=== PATIENT | female | born 1960 | race Caucasian/White ===

== ENCOUNTER 2019-04-09 17:34 | Inpatient (IN) | payer SELFPAY ==
[~2019-04-09] VITALS: Ht 167.6 cm; Wt 132.0 kg
[2019-04-09 19:20] VITALS: BP 141/49
[2019-04-09] MEDS ORDERED: DEXTROSE 50% 25 GM / 50ML DISP.SYRIN. IV PRN (22:30)
[2019-04-09] MEDS ORDERED: VANCOMYCIN PER PHARMACY MC PRN (22:30)
[2019-04-09] MEDS ORDERED: IV DEXTROSE 5% 250 ML BAG. IV PRN (22:30)
[2019-04-09] MEDS ORDERED: PIP/TAZO PER PHARMACY MC PRN (22:30)
[2019-04-09 22:46] VITALS: BP 144/61
[2019-04-09] MEDS: IV NORMAL SALINE 1000ML BAG 1,000 ML IV SCH (22:46)
[2019-04-09] MEDS: HYDROcodone/APAP 5/325MG 1 TAB TABLET PO PRN (22:46)
[2019-04-09] MEDS ORDERED: INSULIN LISPRO 300 UNITS/3 ML VIAL. SQ ONE (23:00)
[2019-04-09] MEDS: INSULIN GLARGINE SYRINGE. SQ SCH (23:02)
[2019-04-09] MEDS: PIPERACILLIN/TAZOBACTAM 3.375 GM in IV NORMAL SALINE 50ML 50 ML IV SCH (23:46)
[2019-04-10] VITALS (12 sets, daily range): BP systolic 110–143; BP diastolic 52–67
[2019-04-10] MEDS: HYDROcodone/APAP 5/325MG 1 TAB TABLET PO PRN ×3 (03:18→21:38)
--- NOTE | 2019-04-10 03:41 | NUR ---
Pharmacy Vancomycin Dosing Note S:Consulted to monitor and dose vancomycin started 04/09/19. O:VANNA CARBAJAL is a 58 year old F with Cellulitis Osteomyelitis . Height: 5 feet, 6 inches Weight: 149.916269 kg [place] Body Weight: 59.30 Adjusted Body Weight: 95.18 Dosing Weight: Actual Other Antibiotics: ZOSYN 3.375 GM Q6H LABS: Last BUN: 25 Last Creatinine: 1.1 Creatinine Clearance: 80 mL/min Last WBC: 13.9 Last Procalcitonin: Tmax (past 24 hours): Microbiology: I/O: Drug Levels: Last level: on at Last dose given 04/09/19 at 1700 Vancomycin Dosing: Loading Dose: 2000 mg x1 Dosing Weight: Actual Target Trough: 15-20 A: Based on: WT AND CRCL P: 1. Begin Vancomycin 2000 mg IV q12h 2. Follow up Trough level on 04/11/19 at 0430 3. Pharmacy will continue to monitor, follow and adjust therapy as needed. ALISE ABDI RPH, 04/10/19 034 Signed: 04/10/19 at 0341 by ALISE ABDI RPH PHA
[2019-04-10] MEDS ORDERED: VANCOMYCIN 2 GM in IV NORMAL SALINE 500ML BAG 500 ML IV SCH (05:00)
[2019-04-10] MEDS: PIPERACILLIN/TAZOBACTAM 3.375 GM in IV NORMAL SALINE 50ML 50 ML IV SCH ×2 (06:07→11:34)
[2019-04-10] MEDS: INSULIN LISPRO 300 UNITS/3 ML VIAL. SQ SCH ×5 (07:30→17:39)
[2019-04-10] MEDS ORDERED: INSULIN LISPRO 300 UNITS/3 ML VIAL. SQ SCH (08:00)
[2019-04-10] MEDS ORDERED: IV DEXTROSE 5% 250 ML BAG. IV PRN (08:15)
[2019-04-10] MEDS ORDERED: DEXTROSE 50% 25 GM / 50ML DISP.SYRIN. IV PRN (08:15)
[2019-04-10] MEDS ORDERED: ONDANSETRON PF 4 MG/2 ML VIAL. IV PRN (08:15)
[2019-04-10] MEDS ORDERED: ACETAMINOPHEN 500 MG TABLET PO PRN (08:15)
[2019-04-10] MEDS: GABAPENTIN 300 MG CAPSULE. PO SCH ×2 (08:26→14:00)
[2019-04-10] MEDS ORDERED: ATENOLOL 50 MG TABLET. PO SCH (09:00)
--- NOTE | 2019-04-10 09:35 | PDOC1 ---
History and Physical Date of Admission Date of Admission DATE: 04/10/19 TIME: 09:27 Identification/Chief Complaint Chief Complaint gangrenous toe, left leg, hx osteo, bad DM Source Source: Caregiver, Chart review, Patient History of Present Illness History of Present Illness 58 white female, bad DM, hgba1c 8, hx osteo , past hx picc, IV abx prolonged time, comes in bec of non healing wound RT heel and rt 3rd or 4th RT toe, BUT A GANGRENOUS AND FOUL SMELLING, ESSENTIALLY 3rd left toe, BS < 200s at home she claims, she has been NPO with consult to ortho, i added ID consult for obvious reasons She knows she will need amputation of that gangrenous toe, WOund care will also consult, she has a heel wound, maybe 0.5 to 1 cm deep on that RT plantar surface SHe has hx of partial amputation if great big toe She has obviouslt bad neuropathy on gabapentin Past Medical History Cardiovascular: HTN, Hyperlipidemia Infectious disease: Other (osteomyelitis) Endocrine: Diabetes Past Surgical History Past Surgical History: Other (partial amputtaion great big toe) Family History Family History: Diabetes, High Cholestrol, Hypertension Social History Smoke: No ALCOHOL: none Drugs: None Current Medications Current Medications Current Medications Vancomycin HCl (Vanco Per Pharmacy) 1 each PRN DAILY PRN MC SEE COMMENTS Last administered on 04/10/19at 03:41; Start 04/09/19 at 22:30 Piperacillin Sod/ Tazobactam Sod (Zosyn Per Pharmacy) 1 each PRN DAILY PRN MC SEE COMMENTS; Start 04/09/19 at 22:30 Sodium Chloride 1,000 ml @ 75 mls/hr [id number] IV Last administered on 04/09/19at 22:46; Start 04/09/19 at 23:00 Acetaminophen/ Hydrocodone Bitart (Lortab 5/325) 1 tab PRN Q4HRS PRN PO MODERATE PAIN 4-6; Start 04/09/19 at 22:30 Acetaminophen/ Hydrocodone Bitart (Lortab 5/325) 2 tab PRN Q4HRS PRN PO SEVERE PAIN 7-10 Last administered on 04/10/19at 08:28; Start 04/09/19 at 22:30 Insulin Glargine (Lantus Syringe) 70 unit QHS SQ Last administered on 04/09/19at 23:02; Start 04/09/19 at 23:00 Insulin Human Lispro (HumaLOG) 20 units 1X ONCE SQ Last administered on 04/09/19at 23:02; Start 04/09/19 at 23:00; Stop 04/09/19 at 23:01; Status DC Insulin Human Lispro (HumaLOG) 0-7 UNITS TIDWMEALS SQ ; Start 04/10/19 at 08:00; Stop 04/10/19 at 08:08; Status DC Dextrose (Dextrose 50%-Water Syringe) 12.5 gm PRN Q15MIN PRN IV SEE COMMENTS; Start 04/09/19 at 22:30; Status Cancel Dextrose 250 ml PRN Q15MIN PRN IV SEE COMMENTS; Start 04/09/19 at 22:30; Status Cancel Insulin Human Lispro (HumaLOG) 26 units TIDAC SQ ; Start 04/10/19 at 07:30 Piperacillin Sod/ Tazobactam Sod 3.375 gm/Sodium Chloride 50 ml @ 100 mls/hr Q6HRS IV Last administered on 04/10/19at 06:07; Start 04/10/19 at 00:00 Gabapentin (Neurontin) 900 mg [id number] PO Last administered on 04/10/19at 08:28; Start 04/10/19 at 09:00 Gabapentin (Neurontin) 1,200 mg HS PO ; Start 04/10/19 at 21:00 Atenolol (Tenormin) 40 mg DAILY PO ; Start 04/10/19 at 09:00; Status UNV Vancomycin HCl 2 gm/Sodium Chloride 500 ml @ 250 mls/hr Q12H IV Last administered on 04/10/19at 05:20; Start 04/10/19 at 05:00 Vancomycin HCl (Vancomycin Trough Level) 1 each 1X ONCE MC ; Start 04/11/19 at 04:30; Stop 04/11/19 at 04:31 Insulin Human Lispro (HumaLOG) 0-9 UNITS TIDWMEALS SQ ; Start 04/10/19 at 12:00 Dextrose (Dextrose 50%-Water Syringe) 12.5 gm PRN Q15MIN PRN IV SEE COMMENTS; Start 04/10/19 at 08:15 Dextrose 250 ml PRN Q15MIN PRN IV SEE COMMENTS; Start 04/10/19 at 08:15 Acetaminophen (Tylenol) 500 mg PRN Q6HRS PRN PO MILD PAIN / TEMP; Start 04/10/19 at 08:15 Ondansetron HCl (Zofran) 4 mg PRN Q6HRS PRN IV NAUSEA/VOMITING; Start 04/10/19 at 08:15 Fentanyl Citrate (Fentanyl 2ml Vial) 50 mcg PRN Q2HR PRN IV PAIN; Start 04/10/19 at 08:15 Allergies Allergies: Coded Allergies: cephalexin (Verified Allergy, Severe, Anaphylaxis, 04/09/19) tongue swells and throat closes, per patient iodine (Verified Allergy, Severe, 04/09/19) ROS Review of System neuropathic pain on both legs, no fevers, no abd pain, n,v,d, emesis, rest 14 pt neg Physical Exam General: Alert, Oriented X3, Cooperative, No acute distress HEENT: Atraumatic, PERRLA, EOMI Lungs: Clear to auscultation, Normal air movement Heart: S1S2, RRR, no thrills, no rubs, no gallops Cardiovascular: S1 Breasts: Normal, Rt breast nml w/o mass, Lt breast nml w/o mass, Nipples normal Abdomen: Normal bowel sounds, Soft, No tenderness, No hepatosplenomegaly, No masses Rectal Exam: not examined PELVIC: Nml ext genitalia Extremities: Other (left thrid toe is GANGRENOUS, foul smelling, . RT heel ulcer, 0.5-1 cm deep, RT 3rd or 4th digit infection/cellulitis) Neuro: Normal gait, Normal speech, Strength at 5/5 X4 ext, Normal tone, Sensation intact, Cranial nerves 3-12 NL, Reflexes 2+ Psych/Mental Status: Mental status NL, Mood NL Vitals Vitals Vital Signs Date Time Temp Pulse Resp B/P (MAP) Pulse Ox O2 Delivery O2 Flow Rate FiO2 04/10/19 08:28 Room Air 04/10/19 07:15 98.1 80 20 135/52 (79) 96 98.1 Labs Labs Laboratory Tests Test 04/09/19 20:49 04/10/19 07:12 Glucose (Fingerstick) 392 mg/dL (70-99) 165 mg/dL (70-99) Laboratory Tests Test 04/09/19 20:49 04/10/19 07:12 Glucose (Fingerstick) 392 mg/dL (70-99) 165 mg/dL (70-99) VTE Prophylaxis Ordered VTE Prophylaxis Devices: Yes VTE Pharmacological Prophylaxi: Yes Assessment/Plan Assessment/Plan 1. LEft THIRD TOE Gangrene - NEEDS amputation and she is agreeable 2. RT heel ulcer - wound care 3. OSteomyelitis - as per [place] xray - needs ortho and iD - s.p 1 dose abx 4. DM with hgba1c 8 and neuropathy and traget organ damage - hx osteo, partial amputation big toe 5. Obesity 6. HTN - controlled pLAN: med surg floor 2 MN has been npo, add iD consult SSI HOme meds, linda insulin regimen FULL CODE Ortho will need amputation PT.OT tmr maybe Dw her IVF while NPO TAYLOR CORDOVA MD Apr 10, 2019 09:35
[2019-04-10 09:46] LABS: BASO # 0.1 x10^3/uL (0.0-0.2); BASO % 1 % (0-3); EOS # 0.4 x10^3/uL (0.0-0.7); EOS % 4 % (0-3); HEMATOCRIT 37.5 % (36.0-47.0); HEMOGLOBIN 12.2 g/dL (12.0-15.5); LYMPH # 0.7 x10^3/uL (1.0-4.8); LYMPH % 6 % (24-48); MEAN CORPUSCULAR HEMOGLOBIN 29 pg (25-35); MEAN CORPUSCULAR HGB CONC 33 g/dL (31-37); MEAN CORPUSCULAR VOLUME 88 fL (79-100); MONO # 0.8 x10^3/uL (0.0-1.1); MONO % 7 % (0-9); NEUT # 9.5 x10^3/uL (1.8-7.7); NEUT % 83 % (31-73); PLATELET COUNT 271 x10^3/uL (140-400); RED BLOOD COUNT 4.25 x10^6/uL (3.50-5.40); RED CELL DISTRIBUTION WIDTH 17.2 % (11.5-14.5); WHITE BLOOD COUNT 11.4 x10^3/uL (4.0-11.0)
[2019-04-10 10:06] LABS: ALBUMIN 2.2 g/dL (3.4-5.0); ALBUMIN/GLOBULIN RATIO 0.5 (1.0-1.7); CALCIUM 8.8 mg/dL (8.5-10.1); CREATININE 0.9 mg/dL (0.6-1.0); GFR 64.3; POTASSIUM 4.2 mmol/L (3.5-5.1); TOTAL BILIRUBIN 0.5 mg/dL (0.2-1.0); TOTAL PROTEIN 6.9 g/dL (6.4-8.2)
[2019-04-10] MEDS ORDERED: SODIUM CHL/ALOE VERA NASAL GEL 14.1GM TUBE. NS PRN (11:45)
--- NOTE | 2019-04-10 12:32 | PDOC2 ---
CONSULT Date of Consult Date of Consult DATE: 04/10/19 TIME: 12:31 Reason for Consult Reason for Consult: Left third toe osteomyelitis Source Source: Chart review, Patient History of Present Illness Reason for Visit: 58 white female, bad DM, hgba1c 8, hx osteo , past hx picc, IV abx prolonged time, comes in because of non healing wound RT heel and rt 3rd or 4th RT toe, BUT A GANGRENOUS AND FOUL SMELLING, ESSENTIALLY 3rd left toe, BS < 200s at home she claims, she has been NPO with consult to Ortho, and ID consult for obvious reasons She knows she will need amputation of that gangrenous toe, Wound care will also consult, she has a heel wound, maybe 0.5 to 1 cm deep on that RT plantar surface She has hx of partial amputation if great big toe She has obviously bad neuropathy on gabapentin I interviewed the patient at the bedside, and spoke to Dr. Diaz personally about her. Past Medical History Cardiovascular: HTN, Hyperlipidemia Infectious disease: Other (osteomyelitis) Endocrine: Diabetes Past Surgical History Past Surgical History: Other (partial amputtaion great big toe) Family History Family History: Diabetes, High Cholestrol, Hypertension Social History No ALCOHOL: none Drugs: None Current Medications Current Medications Current Medications Vancomycin HCl (Vanco Per Pharmacy) 1 each PRN DAILY PRN MC SEE COMMENTS Last administered on 04/10/19at 03:41; Start 04/09/19 at 22:30 Piperacillin Sod/ Tazobactam Sod (Zosyn Per Pharmacy) 1 each PRN DAILY PRN MC SEE COMMENTS; Start 04/09/19 at 22:30 Sodium Chloride 1,000 ml @ 75 mls/hr [id number] IV Last administered on 04/09/19at 22:46; Start 04/09/19 at 23:00 Acetaminophen/ Hydrocodone Bitart (Lortab 5/325) 1 tab PRN Q4HRS PRN PO MODERATE PAIN 4-6; Start 04/09/19 at 22:30 Acetaminophen/ Hydrocodone Bitart (Lortab 5/325) 2 tab PRN Q4HRS PRN PO SEVERE PAIN 7-10 Last administered on 04/10/19at 08:28; Start 04/09/19 at 22:30 Insulin Glargine (Lantus Syringe) 70 unit QHS SQ Last administered on 04/09/19at 23:02; Start 04/09/19 at 23:00 Insulin Human Lispro (HumaLOG) 20 units 1X ONCE SQ Last administered on 04/09/19at 23:02; Start 04/09/19 at 23:00; Stop 04/09/19 at 23:01; Status DC Insulin Human Lispro (HumaLOG) 0-7 UNITS TIDWMEALS SQ ; Start 04/10/19 at 08:00; Stop 04/10/19 at 08:08; Status DC Dextrose (Dextrose 50%-Water Syringe) 12.5 gm PRN Q15MIN PRN IV SEE COMMENTS; Start 04/09/19 at 22:30; Status Cancel Dextrose 250 ml PRN Q15MIN PRN IV SEE COMMENTS; Start 04/09/19 at 22:30; Status Cancel Insulin Human Lispro (HumaLOG) 26 units TIDAC SQ ; Start 04/10/19 at 07:30 Piperacillin Sod/ Tazobactam Sod 3.375 gm/Sodium Chloride 50 ml @ 100 mls/hr Q6HRS IV Last administered on 04/10/19at 11:35; Start 04/10/19 at 00:00 Gabapentin (Neurontin) 900 mg BID92 PO Last administered on 04/10/19at 08:28; Start 04/10/19 at 09:00 Gabapentin (Neurontin) 1,200 mg HS PO ; Start 04/10/19 at 21:00 Atenolol (Tenormin) 40 mg DAILY PO ; Start 04/10/19 at 09:00; Status UNV Vancomycin HCl 2 gm/Sodium Chloride 500 ml @ 250 mls/hr Q12H IV Last administered on 04/10/19at 05:20; Start 04/10/19 at 05:00 Vancomycin HCl (Vancomycin Trough Level) 1 each 1X ONCE MC ; Start 04/11/19 at 04:30; Stop 04/11/19 at 04:31 Insulin Human Lispro (HumaLOG) 0-9 UNITS TIDWMEALS SQ ; Start 04/10/19 at 12:00 Dextrose (Dextrose 50%-Water Syringe) 12.5 gm PRN Q15MIN PRN IV SEE COMMENTS; Start 04/10/19 at 08:15 Dextrose 250 ml PRN Q15MIN PRN IV SEE COMMENTS; Start 04/10/19 at 08:15 Acetaminophen (Tylenol) 500 mg PRN Q6HRS PRN PO MILD PAIN / TEMP; Start 04/10/19 at 08:15 Ondansetron HCl (Zofran) 4 mg PRN Q6HRS PRN IV NAUSEA/VOMITING; Start 04/10/19 at 08:15 Fentanyl Citrate (Fentanyl 2ml Vial) 50 mcg PRN Q2HR PRN IV PAIN; Start 04/10/19 at 08:15 Sodium Chloride ([place] Saline Nasal) 1 nadeem PRN Q2HRS PRN NS NASAL CONGESTION; Start 04/10/19 at 11:45 Allergies Allergies: Coded Allergies: cephalexin (Verified Allergy, Severe, Anaphylaxis, 04/09/19) tongue swells and throat closes, per patient iodine (Verified Allergy, Severe, 04/09/19) Physical Exam General: Alert, Cooperative HEENT: Atraumatic Lungs: Normal air movement Heart: Regular rate Abdomen: Soft Extremities: Other (the right third toe is black, and there is wet and dry gangrene with foul odor and purulent drainage. The great toe has been partially amputated previously. There is intense swelling of the distal forefoot, and the third toe gangrene likely has extension at least to the third metatarsal, but there could be involvement of the entire forefoot.) Skin: Other (gangrene right third toe) Neuro: Other (decreased sensation consistent with peripheral neuropathy. Also difficult to assess because of foot swelling. ) Vitals VITALS Vital Signs Date Time Temp Pulse Resp B/P (MAP) Pulse Ox O2 Delivery O2 Flow Rate FiO2 04/10/19 11:15 98.3 81 18 143/60 (87) 97 Room Air 98.3 Labs Labs Laboratory Tests Test 04/09/19 20:49 04/10/19 07:12 04/10/19 09:30 04/10/19 11:31 Glucose (Fingerstick) 392 mg/dL (70-99) 165 mg/dL (70-99) 215 mg/dL (70-99) White Blood Count 11.4 x10^3/uL (4.0-11.0) Red Blood Count 4.25 x10^6/uL (3.50-5.40) Hemoglobin 12.2 g/dL (12.0-15.5) Hematocrit 37.5 % (36.0-47.0) Mean Corpuscular Volume 88 fL (79-100) Mean Corpuscular Hemoglobin 29 pg (25-35) Mean Corpuscular Hemoglobin Concent 33 g/dL (31-37) Red Cell Distribution Width 17.2 % (11.5-14.5) Platelet Count 271 x10^3/uL (140-400) Neutrophils (%) (Auto) 83 % (31-73) Lymphocytes (%) (Auto) 6 % (24-48) Monocytes (%) (Auto) 7 % (0-9) Eosinophils (%) (Auto) 4 % (0-3) Basophils (%) (Auto) 1 % (0-3) Neutrophils # (Auto) 9.5 x10^3/uL (1.8-7.7) Lymphocytes # (Auto) 0.7 x10^3/uL (1.0-4.8) Monocytes # (Auto) 0.8 x10^3/uL (0.0-1.1) Eosinophils # (Auto) 0.4 x10^3/uL (0.0-0.7) Basophils # (Auto) 0.1 x10^3/uL (0.0-0.2) Sodium Level 143 mmol/L (136-145) Potassium Level 4.2 mmol/L (3.5-5.1) Chloride Level 104 mmol/L (98-107) Carbon Dioxide Level 33 mmol/L (21-32) Anion Gap 6 (6-14) Blood Urea Nitrogen 19 mg/dL (7-20) Creatinine 0.9 mg/dL (0.6-1.0) Estimated GFR (Cockcroft-Gault) 64.3 BUN/Creatinine Ratio 21 (6-20) Glucose Level 211 mg/dL (70-99) Calcium Level 8.8 mg/dL (8.5-10.1) Total Bilirubin 0.5 mg/dL (0.2-1.0) Aspartate Amino Transf (AST/SGOT) 12 U/L (15-37) Alanine Aminotransferase (ALT/SGPT) 26 U/L (14-59) Alkaline Phosphatase 151 U/L (46-116) Total Protein 6.9 g/dL (6.4-8.2) Albumin 2.2 g/dL (3.4-5.0) Albumin/Globulin Ratio 0.5 (1.0-1.7) Laboratory Tests Test 04/09/19 20:49 04/10/19 07:12 04/10/19 09:30 04/10/19 11:31 Glucose (Fingerstick) 392 mg/dL (70-99) 165 mg/dL (70-99) 215 mg/dL (70-99) White Blood Count 11.4 x10^3/uL (4.0-11.0) Red Blood Count 4.25 x10^6/uL (3.50-5.40) Hemoglobin 12.2 g/dL (12.0-15.5) Hematocrit 37.5 % (36.0-47.0) Mean Corpuscular Volume 88 fL (79-100) Mean Corpuscular Hemoglobin 29 pg (25-35) Mean Corpuscular Hemoglobin Concent 33 g/dL (31-37) Red Cell Distribution Width 17.2 % (11.5-14.5) Platelet Count 271 x10^3/uL (140-400) Neutrophils (%) (Auto) 83 % (31-73) Lymphocytes (%) (Auto) 6 % (24-48) Monocytes (%) (Auto) 7 % (0-9) Eosinophils (%) (Auto) 4 % (0-3) Basophils (%) (Auto) 1 % (0-3) Neutrophils # (Auto) 9.5 x10^3/uL (1.8-7.7) Lymphocytes # (Auto) 0.7 x10^3/uL (1.0-4.8) Monocytes # (Auto) 0.8 x10^3/uL (0.0-1.1) Eosinophils # (Auto) 0.4 x10^3/uL (0.0-0.7) Basophils # (Auto) 0.1 x10^3/uL (0.0-0.2) Sodium Level 143 mmol/L (136-145) Potassium Level 4.2 mmol/L (3.5-5.1) Chloride Level 104 mmol/L (98-107) Carbon Dioxide Level 33 mmol/L (21-32) Anion Gap 6 (6-14) Blood Urea Nitrogen 19 mg/dL (7-20) Creatinine 0.9 mg/dL (0.6-1.0) Estimated GFR (Cockcroft-Gault) 64.3 BUN/Creatinine Ratio 21 (6-20) Glucose Level 211 mg/dL (70-99) Calcium Level 8.8 mg/dL (8.5-10.1) Total Bilirubin 0.5 mg/dL (0.2-1.0) Aspartate Amino Transf (AST/SGOT) 12 U/L (15-37) Alanine Aminotransferase (ALT/SGPT) 26 U/L (14-59) Alkaline Phosphatase 151 U/L (46-116) Total Protein 6.9 g/dL (6.4-8.2) Albumin 2.2 g/dL (3.4-5.0) Albumin/Globulin Ratio 0.5 (1.0-1.7) Images Images Left foot x-ray report reviewed, images independently reviewed. [address] [id number] IMAGING REPORT Signed PATIENT: VANNA CARBAJAL ACCOUNT: [id number] : 1960 LOCATION: ER AGE: 58 SEX: F EXAM STATUS: REG ER ORD. PHYSICIAN: JOSELIN PLASCENCIA DO REASON: ULCER, CELLULITIS 3RD TOE. PT UNABLE TO MOVE TOES PROCEDURE: TOES LEFT EXAM: AP, oblique and lateral views of the left toes DATE: 04/09/2019 3:27 PM INDICATION: Ulceration, cellulitis third toe COMPARISON: No Prior FINDINGS: Diffuse soft tissue swelling seen about the left third toe with associated foci of subcutaneous gas. Prominent soft tissue ulceration is seen about the tuft with associated erosive/destructive change of the tuft of the distal phalanx third toe. Moderate soft tissue swelling seen about the second and fourth toes. Post amputation changes of the distal phalanx left great toe. IMPRESSION: 1. Soft tissue swelling with foci of gas most prominent about the third toe with erosive/destructive change of the tuft of distal phalanx consistent with acute osteomyelitis distal phalanx third toe with associated soft tissue swelling from likely from cellulitis. Electronically signed by: Julián Linton MD (04/09/2019 4:07 PM) [facility] DICTATED AND SIGNED BY: JULIÁN LINTON MD DATE: 04/09/19 4210 CC: JOSELIN PLASCENCIA DO; PCP,NO Assessment/Plan Assessment/Plan Left foot gangrenous () third toe with wet and dry gangrene, severe infection, osteomyelitis, possible abscess in the forefoot. (Type 2 diabetes with diabetic peripheral angiopathy with gangrene E11.52) I recommended urgent trip to the operating room for amputation of the third toe of the left foot, along with likely part of the metatarsal and drainage of any forefoot abscess. (CPT 42285 amputation metatarsal, with toe, single.) I spoke to Dr. Diaz and he and I both feel this should the left open due to the nicki rity of the infection. She might require a transmetatarsal amputation in the future but I will not do that today and I will attempt preservation of the remainder of the forefoot with debridement, delayed closure at a later date, antibiotics and wound care. She stated understanding and agrees with the plan. SUSANA AGUAYO MD Apr 10, 2019 12:32
--- NOTE | 2019-04-10 12:43 | PDOC ---
Infectious Disease Note Vital Sign Vital Signs Vital Signs Date Time Temp Pulse Resp B/P (MAP) Pulse Ox O2 Delivery O2 Flow Rate FiO2 04/10/19 11:15 98.3 81 18 143/60 (87) 97 Room Air 98.3 Labs Lab Laboratory Tests Test 04/09/19 20:49 04/10/19 07:12 04/10/19 09:30 04/10/19 11:31 Glucose (Fingerstick) 392 mg/dL (70-99) 165 mg/dL (70-99) 215 mg/dL (70-99) White Blood Count 11.4 x10^3/uL (4.0-11.0) Red Blood Count 4.25 x10^6/uL (3.50-5.40) Hemoglobin 12.2 g/dL (12.0-15.5) Hematocrit 37.5 % (36.0-47.0) Mean Corpuscular Volume 88 fL (79-100) Mean Corpuscular Hemoglobin 29 pg (25-35) Mean Corpuscular Hemoglobin Concent 33 g/dL (31-37) Red Cell Distribution Width 17.2 % (11.5-14.5) Platelet Count 271 x10^3/uL (140-400) Neutrophils (%) (Auto) 83 % (31-73) Lymphocytes (%) (Auto) 6 % (24-48) Monocytes (%) (Auto) 7 % (0-9) Eosinophils (%) (Auto) 4 % (0-3) Basophils (%) (Auto) 1 % (0-3) Neutrophils # (Auto) 9.5 x10^3/uL (1.8-7.7) Lymphocytes # (Auto) 0.7 x10^3/uL (1.0-4.8) Monocytes # (Auto) 0.8 x10^3/uL (0.0-1.1) Eosinophils # (Auto) 0.4 x10^3/uL (0.0-0.7) Basophils # (Auto) 0.1 x10^3/uL (0.0-0.2) Sodium Level 143 mmol/L (136-145) Potassium Level 4.2 mmol/L (3.5-5.1) Chloride Level 104 mmol/L (98-107) Carbon Dioxide Level 33 mmol/L (21-32) Anion Gap 6 (6-14) Blood Urea Nitrogen 19 mg/dL (7-20) Creatinine 0.9 mg/dL (0.6-1.0) Estimated GFR (Cockcroft-Gault) 64.3 BUN/Creatinine Ratio 21 (6-20) Glucose Level 211 mg/dL (70-99) Calcium Level 8.8 mg/dL (8.5-10.1) Total Bilirubin 0.5 mg/dL (0.2-1.0) Aspartate Amino Transf (AST/SGOT) 12 U/L (15-37) Alanine Aminotransferase (ALT/SGPT) 26 U/L (14-59) Alkaline Phosphatase 151 U/L (46-116) Total Protein 6.9 g/dL (6.4-8.2) Albumin 2.2 g/dL (3.4-5.0) Albumin/Globulin Ratio 0.5 (1.0-1.7) Objective Assessment L 3 rd toe osteomyelitis - infection - despite amoxicillin/Clinda Cephalexin allegy -swelling and throat closing leukocytosis Yeast skin Dm Plan Plan of Care Add fluconazole Given amox use will change to Meropenem Given high dose Vanc and previous exposure will change to Dapto avoid potential ALISIA F/u labs and cults Add Sed rate Await surgery D/w nursing Thank you # [id number] MEG BURNS MD Apr 10, 2019 12:43
[2019-04-10] MEDS: DAPTOMYCIN IV SCH (13:00)
[2019-04-10] MEDS: FLUCONAZOLE 200MG/100ML PREMIX 100 ML IV SCH (13:00)
[2019-04-10] MEDS: NORMAL SALINE IV SCH (13:00)
[2019-04-10] MEDS ORDERED: IV RINGERS,LACTATED 1000ML 1,000 ML IV SCH (13:14)
[2019-04-10] MEDS ORDERED: HYDROmorphone 2 MG/ML VIAL IV PRN (13:15)
[2019-04-10] MEDS ORDERED: fentaNYL PF VIAL 100 MCG/2 ML VIAL IV PRN ×2 (13:15)
[2019-04-10] MEDS ORDERED: PROCHLORPERAZINE 10 MG/2 ML VIAL. IV PRN (13:15)
[2019-04-10] MEDS ORDERED: MORPHINE SULFATE 2 MG/ML VIAL. IV PRN (13:15)
[2019-04-10] MEDS ORDERED: PROPOFOL 20 ML IV ONE (13:20)
[2019-04-10] MEDS ORDERED: fentaNYL PF VIAL 100 MCG/2 ML VIAL ONE (13:20)
[2019-04-10] MEDS ORDERED: SEVOFLURANE 31 TO 60 MINUTES. IH ONE (13:20)
[2019-04-10] MEDS ORDERED: DEXAMETHASONE SOD PHOS 4 MG/ML VIAL ONE (13:21)
[2019-04-10] MEDS ORDERED: LIDOCAINE 2% PF 5 ML VIAL. ONE (13:21)
[2019-04-10] MEDS ORDERED: ONDANSETRON PF 4 MG/2 ML VIAL. ONE (13:21)
--- NOTE | 2019-04-10 13:31 | NUR ---
SS following for discharge planning. SS reviewed pt chart. Pt is self pay pt. HCFS following for self pay status. Pt is from home and is currently on room air. No discharge needs noted at this time. SS will continue to follow for discharge planning.
--- NOTE | 2019-04-10 13:52 | NUR ---
Wound care: Attempted to see patient regarding wound care. Patient in surgery at this time. Wound care will see patient tomorrow 04/11/19. Spoke with RN regarding POC.
--- NOTE | 2019-04-10 13:59 | EKG ---
[facility] [address] [place] [address] Test Date: 2019-04-10 Test Time: 13:52:46 Pat Name: VANNA CARBAJAL Department: Room: [facility] Gender: F Forestry Conservation Worker: BURKE : 1960 Requested By: TEREZA LUI Order Number: [id number] Reading MD: Montez Hu MD Measurements Intervals [place] Rate: 83 P: 64 ND: 134 QRS: 86 QRSD: 100 T: 18 QT: 372 QTc: 438 Interpretive Statements SINUS RHYTHM RBBB Electronically Signed On 04-22-2019 22:03:51 CDT by Montez Hu MD
[2019-04-10] MEDS: MEROPENEM 1 GM in IV NORMAL SALINE 100ML 100 ML IV SCH ×2 (14:00→21:29)
[2019-04-10] MEDS ORDERED: PHENYLEPHRINE in 0.9% NACL PF 1 MG/10 ML SYRINGE. IV ONE (14:27)
--- NOTE | 2019-04-10 15:10 | PDOC4 ---
Operative Note Operative Note Date of Procedure: April 10, 2019 Pre-Op Diagnosis: Type 2 diabetes mellitus with diabetic peripheral angiopathy with gangrene E11.52 Post-Op Diagnosis: same Procedure: Left third toe amputation metatarsal, with toe, single CPT 59252 Surgeon: Susana Sandoval MD Router Machine Operator: OSCAR Spence Anesthesia: General EBL: 10 mL Specimens Obtained: left third toe with metatarsal Complications: none Drains: none Findings: Severe gangrene and abscess, with some extension into the soft tissues around the second and fourth metatarsal head regions Indications for Procedure: This patient has a gangrenous third toe, as a complication of diabetes. She has wet and dry gangrene and urgent need for surgery. I recommend third toe with the corresponding metatarsal amputation, and leaving the wound open for now, with further procedures planned. The patient and I discussed the risks, benefits and alternatives of surgery. We discussed the potential risks of wound dehiscence, ongoing infection, need for further surgery, or other potential surgical or anesthetic complications. All of her questions about surgery were answered and she desires to proceed. Procedure in Detail: The patient was identified in the preoperative holding area. The correct left third toe was noted by me and is black, necrotic and foul smelling. The patient was taken to the operating room where general anesthesia was used. The patient was positioned supine on the operating table. She remains on multiple scheduled antibiotics. A timeout procedure was performed. The skin was prepared in sterile fashion using Betadine. Sterile drapes were applied. The limb was elevated to exsanguinate it and an Esmarch was used at the midfoot as a tourniquet. An elliptical incision was made with the tips of the ellipse at the dorsal and plantar aspects of the metatarsophalangeal joint. An incision was made with a 10 blade scalpel. Purulent drainage was noted. The third metatarsal was exposed, and transected with a bone cutter. The toe with its associated metatarsal was now excised using a scalpel. Foul-smelling purulent gangrenous tissue was still noted, extending towards the head of the fourth metatarsal and the head of the second metatarsal. I did excisional debridement with a rongeurs of the remaining foul-smelling or otherwise nonviable tissue around the 2nd and 4th metatarsals, but was able to leave the second and fourth metatarsal heads and metatarsal shaft bone and the 2nd and 4th toes. The friable skin on the plantar foot associated with the gangrenous toe was excised with rongeurs. Copious saline irrigation was used. The Esmarch tourniquet was released from the midfoot. There is only slight bleeding and there were no pulsatile bleeders nor need for electrocautery. The wound was packed open with Kerlix, and further dressed in sterile fashion using an ABD and additional Kerlix. Needle and sponge counts were correct. There were no apparent complications. The patient will require further surgery. SUSANA SANDOVAL MD Apr 10, 2019 15:10
[2019-04-10] MEDS ORDERED: oxyCODONE/APAP 5/325 1 TAB TABLET PO PRN (15:15)
[2019-04-10] MEDS: oxyCODONE/APAP 5/325 1 TAB TABLET PO PRN (15:54)
[2019-04-10] MEDS: IV NORMAL SALINE 1000ML BAG 1,000 ML IV SCH (15:54)
[2019-04-10] MEDS: ASPIRIN ENTERIC COATED 325 MG TABLET.DR. PO SCH (21:00)
[2019-04-10] MEDS: INSULIN GLARGINE SYRINGE. SQ SCH (21:35)
[2019-04-10] MEDS: GABAPENTIN 400 MG CAPSULE. PO SCH (21:37)
--- NOTE | 2019-04-10 23:00 | CONS ---
DATE OF CONSULTATION: 04/10/2019 LOCATION: The patient's room 416. REQUESTING PHYSICIAN: Dr. Kunz. REASON FOR CONSULTATION: Left third toe infection. HISTORY OF PRESENT ILLNESS: The patient is a 58-year-old female with history of diabetes and history of previous toe infections. She has recently moved from just outside [place], [place] to [place]. She states she has been on amoxicillin and clindamycin for approximately 4 months despite this, her left third toe had become worsened. It darkened in color and developed a strong odor. She has some subjective chills, some fevers, had some nausea. Denies any cramps, diarrhea, dysuria or frequency. No trauma. PAST MEDICAL HISTORY: Positive for previous osteomyelitis of the toe. States she has had multiple PICC lines. She cannot say for sure if she had any specific bacteria, but she has been treated with vancomycin in the past amongst other things. She has hyperlipidemia, hypertension, morbid obesity and diabetes. PAST SURGICAL HISTORY: Positive for partial left great toe amputation. REVIEW OF SYSTEMS: Otherwise negative except for mentioned above. ALLERGIES: LISTED CEPHALEXIN, SHE STATES CAUSES SWELLING, ANAPHYLACTIC TYPE REACTION, BUT SHE TOLERATED AMOXICILLIN. SOCIAL HISTORY: No tobacco or alcohol. FAMILY HISTORY: Positive for diabetes, hypercholesterol and hypertension. CURRENT MEDICATIONS: Include vancomycin as well as Zosyn. She is on Neurontin, hydrocodone and insulin. Other meds are available and reviewed in the chart. PHYSICAL EXAMINATION: VITAL SIGNS: She has been afebrile. Temperature 98.3, pulse 81, respirations 18, satting 97% on room air and blood pressure 143/60. CONSTITUTIONAL: She is sitting up on the side of bed. She is morbidly obese. She is cooperative. She looks a little tired. She is in no acute distress. HEENT: Pupils are equal and reactive. She has normal conjunctivae. Oral cavity, pharynx is clear. NECK: Supple, no JVD. LUNGS: Clear to auscultation bilaterally. HEART: S1, S2. ABDOMEN: Morbidly obese, soft, nontender, no guarding or rebound. EXTREMITIES: Without clubbing, cyanosis. Left third toe has gangrenous, has a foul odor to it, is dark, and has some purulent material coming from it. She has a mild right heel ulcer as well. Skin is warm to touch without signs of rash. She does have some generalized rash. She has some yeast in her folds, also some yeast on her lower extremities. NEUROLOGIC: She is nonfocal, moves all extremities, answers questions. PSYCHIATRIC: Affect is appropriate. LABORATORY VALUES: White count was 11.4, hemoglobin 12.2, and platelets of 271. Glucose 211. AST 12 and ALT 26. Creatinine of 0.9. There are no radiological studies. IMPRESSION: 1. Left third toe osteomyelitis infection despite amoxicillin and clindamycin. SHE HAD BEEN ON RECENTLY CEPHALEXIN ALLERGY, CAUSES SWELLING AND THROAT CLOSING. 2. Leukocytosis. 3. Yeast. 4. Diabetes. RECOMMENDATIONS: Given her yeast, we will add fluconazole. Given her recent amoxicillin use, we will change to meropenem as she is at risk for resistance and given her prior use of vancomycin and also given high dose that she is being given as she is at risk for acute kidney injury. Therefore, we will discontinue vancomycin and begin daptomycin. We will add a sedimentation rate. We will follow up labs and cultures. We will await Surgery to happen later this afternoon in discussion with nursing. Thank you for allowing me to participate in the patient's care. If you have any questions, please do not hesitate to contact me. MEG BURNS MD DR: LEÓN/joe JOB#: [id number] / [id number]
[2019-04-11 01:12] LABS: HEMOGLOBIN A1C 9.7 % (4.8-5.6)
[2019-04-11 02:37] VITALS: BP 134/58
[2019-04-11] MEDS: HYDROcodone/APAP 5/325MG 1 TAB TABLET PO PRN ×3 (03:54→21:01)
[2019-04-11] MEDS: IV NORMAL SALINE 1000ML BAG 1,000 ML IV SCH (05:00)
[2019-04-11] MEDS: MEROPENEM 1 GM in IV NORMAL SALINE 100ML 100 ML IV SCH ×3 (05:58→21:04)
[2019-04-11 06:58] LABS: BASO % 0 % (0-3); EOS # 0.1 x10^3/uL (0.0-0.7); EOS % 1 % (0-3); HEMATOCRIT 37.9 % (36.0-47.0); HEMOGLOBIN 12.2 g/dL (12.0-15.5); LYMPH # 0.8 x10^3/uL (1.0-4.8); LYMPH % 6 % (24-48); MEAN CORPUSCULAR HEMOGLOBIN 29 pg (25-35); MEAN CORPUSCULAR HGB CONC 32 g/dL (31-37); MEAN CORPUSCULAR VOLUME 90 fL (79-100); MONO # 0.7 x10^3/uL (0.0-1.1); MONO % 5 % (0-9); NEUT # 11.2 x10^3/uL (1.8-7.7); NEUT % 88 % (31-73); PLATELET COUNT 317 x10^3/uL (140-400); RED BLOOD COUNT 4.22 x10^6/uL (3.50-5.40); RED CELL DISTRIBUTION WIDTH 17.5 % (11.5-14.5); WHITE BLOOD COUNT 12.7 x10^3/uL (4.0-11.0)
[2019-04-11 07:00] VITALS: BP 119/61
[2019-04-11 07:29] LABS: CALCIUM 8.1 mg/dL (8.5-10.1); CREATININE 1.3 mg/dL (0.6-1.0); GFR 42.1; POTASSIUM 5.8 mmol/L (3.5-5.1)
[2019-04-11] MEDS: GABAPENTIN 300 MG CAPSULE. PO SCH ×2 (08:36→17:04)
[2019-04-11] MEDS: INSULIN LISPRO 300 UNITS/3 ML VIAL. SQ SCH ×6 (08:46→17:15)
[2019-04-11] MEDS ORDERED: SODIUM POLYSTYRENE SULFON/SORB 15 GM/60 ML ORAL.SUSP PO ONE (09:00)
--- NOTE | 2019-04-11 09:25 | PDOC ---
PROGRESS NOTES Chief Complaint Chief Complaint 1. LEft THIRD TOE Gangrene -s/p amputation 04/10 (POD # 1) 2. RT heel ulcer - wound care 3. OSteomyelitis - as per adrianna xray - 4. DM with hgba1c 9.7 and neuropathy and target organ damage - hx osteo, partial amputation big toe 5. Obesity 6. HTN - controlled 7,. Lymphedema 8. POst op confusion, transient 9, POst op mild hyperkalemia 5.5 10. Post op ALISIA, VMN likely History of Present Illness History of Present Illness POD # 1 - some transient confusion last night- she thought she was in a hotel BS high! 300s HGba1c 9.7 WBC 12,7 ESR 105, platelets 317 hgb 12 K 5,5, creat 1,3 from 0.9 - on lasix 20 BID at home ALso requests her meclizine ON hefty doses insulin 27 units mealtimes and 70 qhs PLAN: STart lantus 25 qdaily first dose now AWAIT wound care re that RT heel ulcer and toe wound POst op care/labs PT.OT Self pay? IV abx per ID NO IVF for now re that creat kayexylate 15 x 1 re K 5.5 REcheck BMP tmr - if creat worse, then she agreed to IVF - she did not want to start iVF - afraid of lymphedema OK for home meclizine no lasix for now Vitals Vitals Vital Signs Date Time Temp Pulse Resp B/P (MAP) Pulse Ox O2 Delivery O2 Flow Rate FiO2 04/11/19 08:47 Room Air 04/11/19 07:00 98.3 79 14 119/61 (80) 91 98.3 04/11/19 02:37 2.0 Physical Exam General: Alert, Cooperative, No acute distress Heart: Regular rate, Normal S1, Normal S2, No murmurs Lungs: Clear Abdomen: Soft, No tenderness Extremities: No clubbing, No cyanosis, Other (left leg dressing, rt leg dressing, amputated toe) Skin: Other (gangrene right third toe) Labs LABS Laboratory Tests Test 04/10/19 09:30 04/10/19 11:31 04/10/19 15:07 04/10/19 16:55 White Blood Count 11.4 x10^3/uL (4.0-11.0) Red Blood Count 4.25 x10^6/uL (3.50-5.40) Hemoglobin 12.2 g/dL (12.0-15.5) Hematocrit 37.5 % (36.0-47.0) Mean Corpuscular Volume 88 fL (79-100) Mean Corpuscular Hemoglobin 29 pg (25-35) Mean Corpuscular Hemoglobin Concent 33 g/dL (31-37) Red Cell Distribution Width 17.2 % (11.5-14.5) Platelet Count 271 x10^3/uL (140-400) Neutrophils (%) (Auto) 83 % (31-73) Lymphocytes (%) (Auto) 6 % (24-48) Monocytes (%) (Auto) 7 % (0-9) Eosinophils (%) (Auto) 4 % (0-3) Basophils (%) (Auto) 1 % (0-3) Neutrophils # (Auto) 9.5 x10^3/uL (1.8-7.7) Lymphocytes # (Auto) 0.7 x10^3/uL (1.0-4.8) Monocytes # (Auto) 0.8 x10^3/uL (0.0-1.1) Eosinophils # (Auto) 0.4 x10^3/uL (0.0-0.7) Basophils # (Auto) 0.1 x10^3/uL (0.0-0.2) Erythrocyte Sedimentation Rate 105 (0-25) Sodium Level 143 mmol/L (136-145) Potassium Level 4.2 mmol/L (3.5-5.1) Chloride Level 104 mmol/L (98-107) Carbon Dioxide Level 33 mmol/L (21-32) Anion Gap 6 (6-14) Blood Urea Nitrogen 19 mg/dL (7-20) Creatinine 0.9 mg/dL (0.6-1.0) Estimated GFR (Cockcroft-Gault) 64.3 BUN/Creatinine Ratio 21 (6-20) Glucose Level 211 mg/dL (70-99) Hemoglobin A1c 9.7 % (4.8-5.6) Calcium Level 8.8 mg/dL (8.5-10.1) Total Bilirubin 0.5 mg/dL (0.2-1.0) Aspartate Amino Transf (AST/SGOT) 12 U/L (15-37) Alanine Aminotransferase (ALT/SGPT) 26 U/L (14-59) Alkaline Phosphatase 151 U/L (46-116) Total Protein 6.9 g/dL (6.4-8.2) Albumin 2.2 g/dL (3.4-5.0) Albumin/Globulin Ratio 0.5 (1.0-1.7) Glucose (Fingerstick) 215 mg/dL (70-99) 203 mg/dL (70-99) 242 mg/dL (70-99) Test 04/10/19 20:25 04/11/19 05:45 04/11/19 07:26 Glucose (Fingerstick) 328 mg/dL (70-99) 327 mg/dL (70-99) White Blood Count 12.7 x10^3/uL (4.0-11.0) Red Blood Count 4.22 x10^6/uL (3.50-5.40) Hemoglobin 12.2 g/dL (12.0-15.5) Hematocrit 37.9 % (36.0-47.0) Mean Corpuscular Volume 90 fL (79-100) Mean Corpuscular Hemoglobin 29 pg (25-35) Mean Corpuscular Hemoglobin Concent 32 g/dL (31-37) Red Cell Distribution Width 17.5 % (11.5-14.5) Platelet Count 317 x10^3/uL (140-400) Neutrophils (%) (Auto) 88 % (31-73) Lymphocytes (%) (Auto) 6 % (24-48) Monocytes (%) (Auto) 5 % (0-9) Eosinophils (%) (Auto) 1 % (0-3) Basophils (%) (Auto) 0 % (0-3) Neutrophils # (Auto) 11.2 x10^3/uL (1.8-7.7) Lymphocytes # (Auto) 0.8 x10^3/uL (1.0-4.8) Monocytes # (Auto) 0.7 x10^3/uL (0.0-1.1) Eosinophils # (Auto) 0.1 x10^3/uL (0.0-0.7) Basophils # (Auto) 0.0 x10^3/uL (0.0-0.2) Sodium Level 139 mmol/L (136-145) Potassium Level 5.8 mmol/L (3.5-5.1) Chloride Level 103 mmol/L (98-107) Carbon Dioxide Level 29 mmol/L (21-32) Anion Gap 7 (6-14) Blood Urea Nitrogen 29 mg/dL (7-20) Creatinine 1.3 mg/dL (0.6-1.0) Estimated GFR (Cockcroft-Gault) 42.1 Glucose Level 344 mg/dL (70-99) Calcium Level 8.1 mg/dL (8.5-10.1) Review of Systems Review of Systems known neuropathy, no fevers, no cp, no nausea, emesis, abd pain, there is expected post op pain Comment Review of Relevant I have reviewed the following items adrienne (where applicable) has been applied. Labs Laboratory Tests Test 04/09/19 20:49 04/10/19 07:12 04/10/19 09:30 04/10/19 11:31 Glucose (Fingerstick) 392 mg/dL (70-99) 165 mg/dL (70-99) 215 mg/dL (70-99) White Blood Count 11.4 x10^3/uL (4.0-11.0) Red Blood Count 4.25 x10^6/uL (3.50-5.40) Hemoglobin 12.2 g/dL (12.0-15.5) Hematocrit 37.5 % (36.0-47.0) Mean Corpuscular Volume 88 fL (79-100) Mean Corpuscular Hemoglobin 29 pg (25-35) Mean Corpuscular Hemoglobin Concent 33 g/dL (31-37) Red Cell Distribution Width 17.2 % (11.5-14.5) Platelet Count 271 x10^3/uL (140-400) Neutrophils (%) (Auto) 83 % (31-73) Lymphocytes (%) (Auto) 6 % (24-48) Monocytes (%) (Auto) 7 % (0-9) Eosinophils (%) (Auto) 4 % (0-3) Basophils (%) (Auto) 1 % (0-3) Neutrophils # (Auto) 9.5 x10^3/uL (1.8-7.7) Lymphocytes # (Auto) 0.7 x10^3/uL (1.0-4.8) Monocytes # (Auto) 0.8 x10^3/uL (0.0-1.1) Eosinophils # (Auto) 0.4 x10^3/uL (0.0-0.7) Basophils # (Auto) 0.1 x10^3/uL (0.0-0.2) Erythrocyte Sedimentation Rate 105 (0-25) Sodium Level 143 mmol/L (136-145) Potassium Level 4.2 mmol/L (3.5-5.1) Chloride Level 104 mmol/L (98-107) Carbon Dioxide Level 33 mmol/L (21-32) Anion Gap 6 (6-14) Blood Urea Nitrogen 19 mg/dL (7-20) Creatinine 0.9 mg/dL (0.6-1.0) Estimated GFR (Cockcroft-Gault) 64.3 BUN/Creatinine Ratio 21 (6-20) Glucose Level 211 mg/dL (70-99) Hemoglobin A1c 9.7 % (4.8-5.6) Calcium Level 8.8 mg/dL (8.5-10.1) Total Bilirubin 0.5 mg/dL (0.2-1.0) Aspartate Amino Transf (AST/SGOT) 12 U/L (15-37) Alanine Aminotransferase (ALT/SGPT) 26 U/L (14-59) Alkaline Phosphatase 151 U/L (46-116) Total Protein 6.9 g/dL (6.4-8.2) Albumin 2.2 g/dL (3.4-5.0) Albumin/Globulin Ratio 0.5 (1.0-1.7) Test 04/10/19 15:07 04/10/19 16:55 04/10/19 20:25 04/11/19 05:45 Glucose (Fingerstick) 203 mg/dL (70-99) 242 mg/dL (70-99) 328 mg/dL (70-99) White Blood Count 12.7 x10^3/uL (4.0-11.0) Red Blood Count 4.22 x10^6/uL (3.50-5.40) Hemoglobin 12.2 g/dL (12.0-15.5) Hematocrit 37.9 % (36.0-47.0) Mean Corpuscular Volume 90 fL (79-100) Mean Corpuscular Hemoglobin 29 pg (25-35) Mean Corpuscular Hemoglobin Concent 32 g/dL (31-37) Red Cell Distribution Width 17.5 % (11.5-14.5) Platelet Count 317 x10^3/uL (140-400) Neutrophils (%) (Auto) 88 % (31-73) Lymphocytes (%) (Auto) 6 % (24-48) Monocytes (%) (Auto) 5 % (0-9) Eosinophils (%) (Auto) 1 % (0-3) Basophils (%) (Auto) 0 % (0-3) Neutrophils # (Auto) 11.2 x10^3/uL (1.8-7.7) Lymphocytes # (Auto) 0.8 x10^3/uL (1.0-4.8) Monocytes # (Auto) 0.7 x10^3/uL (0.0-1.1) Eosinophils # (Auto) 0.1 x10^3/uL (0.0-0.7) Basophils # (Auto) 0.0 x10^3/uL (0.0-0.2) Sodium Level 139 mmol/L (136-145) Potassium Level 5.8 mmol/L (3.5-5.1) Chloride Level 103 mmol/L (98-107) Carbon Dioxide Level 29 mmol/L (21-32) Anion Gap 7 (6-14) Blood Urea Nitrogen 29 mg/dL (7-20) Creatinine 1.3 mg/dL (0.6-1.0) Estimated GFR (Cockcroft-Gault) 42.1 Glucose Level 344 mg/dL (70-99) Calcium Level 8.1 mg/dL (8.5-10.1) Test 04/11/19 07:26 Glucose (Fingerstick) 327 mg/dL (70-99) Laboratory Tests Test 04/10/19 09:30 04/10/19 11:31 04/10/19 15:07 04/10/19 16:55 White Blood Count 11.4 x10^3/uL (4.0-11.0) Red Blood Count 4.25 x10^6/uL (3.50-5.40) Hemoglobin 12.2 g/dL (12.0-15.5) Hematocrit 37.5 % (36.0-47.0) Mean Corpuscular Volume 88 fL (79-100) Mean Corpuscular Hemoglobin 29 pg (25-35) Mean Corpuscular Hemoglobin Concent 33 g/dL (31-37) Red Cell Distribution Width 17.2 % (11.5-14.5) Platelet Count 271 x10^3/uL (140-400) Neutrophils (%) (Auto) 83 % (31-73) Lymphocytes (%) (Auto) 6 % (24-48) Monocytes (%) (Auto) 7 % (0-9) Eosinophils (%) (Auto) 4 % (0-3) Basophils (%) (Auto) 1 % (0-3) Neutrophils # (Auto) 9.5 x10^3/uL (1.8-7.7) Lymphocytes # (Auto) 0.7 x10^3/uL (1.0-4.8) Monocytes # (Auto) 0.8 x10^3/uL (0.0-1.1) Eosinophils # (Auto) 0.4 x10^3/uL (0.0-0.7) Basophils # (Auto) 0.1 x10^3/uL (0.0-0.2) Erythrocyte Sedimentation Rate 105 (0-25) Sodium Level 143 mmol/L (136-145) Potassium Level 4.2 mmol/L (3.5-5.1) Chloride Level 104 mmol/L (98-107) Carbon Dioxide Level 33 mmol/L (21-32) Anion Gap 6 (6-14) Blood Urea Nitrogen 19 mg/dL (7-20) Creatinine 0.9 mg/dL (0.6-1.0) Estimated GFR (Cockcroft-Gault) 64.3 BUN/Creatinine Ratio 21 (6-20) Glucose Level 211 mg/dL (70-99) Hemoglobin A1c 9.7 % (4.8-5.6) Calcium Level 8.8 mg/dL (8.5-10.1) Total Bilirubin 0.5 mg/dL (0.2-1.0) Aspartate Amino Transf (AST/SGOT) 12 U/L (15-37) Alanine Aminotransferase (ALT/SGPT) 26 U/L (14-59) Alkaline Phosphatase 151 U/L (46-116) Total Protein 6.9 g/dL (6.4-8.2) Albumin 2.2 g/dL (3.4-5.0) Albumin/Globulin Ratio 0.5 (1.0-1.7) Glucose (Fingerstick) 215 mg/dL (70-99) 203 mg/dL (70-99) 242 mg/dL (70-99) Test 04/10/19 20:25 04/11/19 05:45 04/11/19 07:26 Glucose (Fingerstick) 328 mg/dL (70-99) 327 mg/dL (70-99) White Blood Count 12.7 x10^3/uL (4.0-11.0) Red Blood Count 4.22 x10^6/uL (3.50-5.40) Hemoglobin 12.2 g/dL (12.0-15.5) Hematocrit 37.9 % (36.0-47.0) Mean Corpuscular Volume 90 fL (79-100) Mean Corpuscular Hemoglobin 29 pg (25-35) Mean Corpuscular Hemoglobin Concent 32 g/dL (31-37) Red Cell Distribution Width 17.5 % (11.5-14.5) Platelet Count 317 x10^3/uL (140-400) Neutrophils (%) (Auto) 88 % (31-73) Lymphocytes (%) (Auto) 6 % (24-48) Monocytes (%) (Auto) 5 % (0-9) Eosinophils (%) (Auto) 1 % (0-3) Basophils (%) (Auto) 0 % (0-3) Neutrophils # (Auto) 11.2 x10^3/uL (1.8-7.7) Lymphocytes # (Auto) 0.8 x10^3/uL (1.0-4.8) Monocytes # (Auto) 0.7 x10^3/uL (0.0-1.1) Eosinophils # (Auto) 0.1 x10^3/uL (0.0-0.7) Basophils # (Auto) 0.0 x10^3/uL (0.0-0.2) Sodium Level 139 mmol/L (136-145) Potassium Level 5.8 mmol/L (3.5-5.1) Chloride Level 103 mmol/L (98-107) Carbon Dioxide Level 29 mmol/L (21-32) Anion Gap 7 (6-14) Blood Urea Nitrogen 29 mg/dL (7-20) Creatinine 1.3 mg/dL (0.6-1.0) Estimated GFR (Cockcroft-Gault) 42.1 Glucose Level 344 mg/dL (70-99) Calcium Level 8.1 mg/dL (8.5-10.1) Medications Current Medications Vancomycin HCl (Vanco Per Pharmacy) 1 each PRN DAILY PRN MC SEE COMMENTS Last administered on 04/10/19at 03:41; Start 04/09/19 at 22:30; Stop 04/10/19 at 12:36; Status DC Piperacillin Sod/ Tazobactam Sod (Zosyn Per Pharmacy) 1 each PRN DAILY PRN MC SEE COMMENTS; Start 04/09/19 at 22:30; Stop 04/10/19 at 12:35; Status DC Sodium Chloride 1,000 ml @ 100 mls/hr Q10H IV Last administered on 04/11/19at 05:23; Start 04/09/19 at 23:00 Acetaminophen/ Hydrocodone Bitart (Lortab 5/325) 1 tab PRN Q4HRS PRN PO MODERATE PAIN 4-6; Start 04/09/19 at 22:30 Acetaminophen/ Hydrocodone Bitart (Lortab 5/325) 2 tab PRN Q4HRS PRN PO SEVERE PAIN 7-10 Last administered on 04/11/19at 08:47; Start 04/09/19 at 22:30 Insulin Glargine (Lantus Syringe) 70 unit QHS SQ Last administered on 04/10/19at 21:40; Start 04/09/19 at 23:00 Insulin Human Lispro (HumaLOG) 20 units 1X ONCE SQ Last administered on 04/09/19at 23:02; Start 04/09/19 at 23:00; Stop 04/09/19 at 23:01; Status DC Insulin Human Lispro (HumaLOG) 0-7 UNITS TIDWMEALS SQ ; Start 04/10/19 at 08:00; Stop 04/10/19 at 08:08; Status DC Dextrose (Dextrose 50%-Water Syringe) 12.5 gm PRN Q15MIN PRN IV SEE COMMENTS; Start 04/09/19 at 22:30; Status Cancel Dextrose 250 ml PRN Q15MIN PRN IV SEE COMMENTS; Start 04/09/19 at 22:30; Status Cancel Insulin Human Lispro (HumaLOG) 26 units TIDAC SQ Last administered on 04/11/19at 08:47; Start 04/10/19 at 07:30 Piperacillin Sod/ Tazobactam Sod 3.375 gm/Sodium Chloride 50 ml @ 100 mls/hr Q6HRS IV Last administered on 04/10/19at 11:35; Start 04/10/19 at 00:00; Stop 04/10/19 at 12:35; Status DC Gabapentin (Neurontin) 900 mg BID92 PO Last administered on 04/11/19at 08:47; Start 04/10/19 at 09:00 Gabapentin (Neurontin) 1,200 mg HS PO Last administered on 04/10/19at 21:40; Start 04/10/19 at 21:00 Atenolol (Tenormin) 40 mg DAILY PO ; Start 04/10/19 at 09:00; Status UNV Vancomycin HCl 2 gm/Sodium Chloride 500 ml @ 250 mls/hr Q12H IV Last administered on 04/10/19at 05:20; Start 04/10/19 at 05:00; Stop 04/10/19 at 1 2:36; Status DC Vancomycin HCl (Vancomycin Trough Level) 1 each 1X ONCE MC ; Start 04/11/19 at 04:30; Stop 04/11/19 at 04:31; Status Cancel Insulin Human Lispro (HumaLOG) 0-9 UNITS TIDWMEALS SQ Last administered on 04/11/19at 08:47; Start 04/10/19 at 12:00 Dextrose (Dextrose 50%-Water Syringe) 12.5 gm PRN Q15MIN PRN IV SEE COMMENTS; Start 04/10/19 at 08:15 Dextrose 250 ml PRN Q15MIN PRN IV SEE COMMENTS; Start 04/10/19 at 08:15 Acetaminophen (Tylenol) 500 mg PRN Q6HRS PRN PO MILD PAIN / TEMP; Start at 08:15 Ondansetron HCl (Zofran) 4 mg PRN Q6HRS PRN IV NAUSEA/VOMITING; Start 04/10/19 at 08:15 Fentanyl Citrate (Fentanyl 2ml Vial) 50 mcg PRN Q2HR PRN IV PAIN; Start 04/10/19 at 08:15 Sodium Chloride (Wyckoff Saline Nasal) 1 nadeem PRN Q2HRS PRN NS NASAL CONGESTION Last administered on 04/10/19at 15:54; Start 04/10/19 at 11:45 Fluconazole/ Sodium Chloride 100 ml @ 100 mls/hr Q24H IV ; Start 04/10/19 at 13:00 Meropenem 1 gm/ Sodium Chloride 100 ml @ 200 mls/hr Q8HRS IV Last administered on 04/11/19at 05:58; Start 04/10/19 at 14:00 Daptomycin 900 mg/ Sodium Chloride 50 ml @ 100 mls/hr Q24H IV ; Start 04/10/19 at 13:00 Fentanyl Citrate (Fentanyl 2ml Vial) 25 mcg PRN Q5MIN PRN IV MILD PAIN 1-3; Start 04/10/19 at 13:15; Stop 04/11/19 at 13:14 Fentanyl Citrate (Fentanyl 2ml Vial) 50 mcg PRN Q5MIN PRN IV MODERATE TO SEVERE PAIN; Start 04/10/19 at 13:15; Stop 04/11/19 at 13:14 Morphine Sulfate (Morphine Sulfate) 1 mg PRN Q10MIN PRN IV SEVERE PAIN 7-10; Start 04/10/19 at 13:15; Stop 04/11/19 at 13:14 Ringer's Solution 1,000 ml @ 30 mls/hr Q24H IV ; Start 04/10/19 at 13:14; Stop 04/11/19 at 01:13; Status DC Hydromorphone HCl (Dilaudid) 0.5 mg PRN Q10MIN PRN IV SEV PAIN, Second choice; Start 04/10/19 at 13:15; Stop 04/11/19 at 13:14 Prochlorperazine Edisylate (Compazine) 5 mg PACU PRN PRN IV NAUSEA, MRX1; Start 04/10/19 at 13:15; Stop 04/11/19 at 13:14 Fentanyl Citrate (Fentanyl 2ml Vial) 100 mcg STK-MED ONCE .ROUTE ; Start 04/10/19 at 13:20; Stop 04/10/19 at 13:21; Status DC Sevoflurane (Ultane) 30 ml STK-MED ONCE IH ; Start 04/10/19 at 13:20; Stop 04/10/19 at 13:21; Status DC Propofol 20 ml @ As Directed STK-MED ONCE IV ; Start 04/10/19 at 13:20; Stop 04/10/19 at 13:21; Status DC Dexamethasone Sodium Phosphate (Decadron) 4 mg STK-MED ONCE .ROUTE ; Start 04/10/19 at 13:21; Stop 04/10/19 at 13:21; Status DC Lidocaine HCl (Lidocaine Pf 2% Vial) 5 ml STK-MED ONCE .ROUTE ; Start 04/10/19 at 13:21; Stop 04/10/19 at 13:21; Status DC Ondansetron HCl (Zofran) 4 mg STK-MED ONCE .ROUTE ; Start 04/10/19 at 13:21; Stop 04/10/19 at 13:21; Status DC Phenylephrine HCl (PHENYLEPHRINE in 0.9% NACL PF) 1 mg STK-MED ONCE IV ; Start 04/10/19 at 14:27; Stop 04/10/19 at 14:27; Status DC Aspirin (Ecotrin) 325 mg QHS PO ; Start 04/10/19 at 21:00 Oxycodone/ Acetaminophen (Percocet 5/325) 1 tab PRN Q4HRS PRN PO MODERATE PAIN, LAST OPTION; Start 04/10/19 at 15:15 Oxycodone/ Acetaminophen (Percocet 5/325) 2 tab PRN Q4HRS PRN PO SEVERE PAIN, LAST OPTION Last administered on 04/10/19at 15:54; Start 04/10/19 at 15:30 Insulin Glargine (Lantus Syringe) 30 unit DAILY SQ ; Start 04/11/19 at 09:00 Sodium Polystyrene Sulfonate (Kayexalate) 15 gm 1X ONCE PO ; Start 04/11/19 at 09:00; Stop 04/11/19 at 09:01; Status DC Vitals/I & O Vital Sign - Last 24 Hours 04/10/19 04/10/19 04/10/19 04/10/19 09:55 11:15 13:45 14:57 Temp 98.3 98.4 98.3 98.4 Pulse 81 82 Resp 18 22 B/P (MAP) 143/60 (87) 127/59 Pulse Ox 97 91 O2 Delivery Room Air Room Air Room Air Mask O2 Flow Rate 10 9/17/19 9/17/19 9/17/19 9/17/19 14:57 15:12 15:25 15:54 Temp 98.8 98.8 Pulse 86 81 81 Resp 17 15 16 B/P (MAP) 104/40 92/43 89/41 Pulse Ox 100 100 99 O2 Delivery Simple Mask Simple Mask Room Air Nasal Cannula O2 Flow Rate 10 04/10/19 04/10/19 04/10/19 04/10/19 16:00 16:15 16:30 16:45 Temp 97.9 97.3 97.9 97.3 Pulse 80 74 Resp 20 B/P (MAP) 113/53 (73) 116/55 (75) 120/63 (82) 121/61 (81) Pulse Ox 97 96 O2 Delivery Nasal Cannula Nasal Cannula O2 Flow Rate 2.0 2.0 04/10/19 04/10/19 04/10/19 04/10/19 16:56 17:15 18:01 19:00 Temp 98.0 98.0 Pulse 76 75 B/P (MAP) 110/59 (76) 117/60 (79) 116/62 (80) Pulse Ox 2 96 O2 Delivery Nasal Cannula Nasal Cannula O2 Flow Rate 2.0 04/10/19 04/10/19 04/10/19 04/10/19 20:00 20:00 21:40 22:54 Temp 98.6 98.6 Pulse 75 87 Resp 20 18 B/P (MAP) 116/63 (80) 127/66 (86) Pulse Ox 70 O2 Delivery Nasal Cannula Room Air Room Air O2 Flow Rate 3.0 2.0 04/10/19 04/11/19 04/11/19 04/11/19 22:59 02:37 03:54 05:27 Temp 98.6 98.6 Pulse 82 Resp 18 16 20 20 B/P (MAP) 134/58 (83) Pulse Ox 90 O2 Delivery Room Air Room Air BiPAP/CPAP Room Air O2 Flow Rate 2.0 04/11/19 04/11/19 07:00 08:47 Temp 98.3 98.3 Pulse 79 Resp 14 B/P (MAP) 119/61 (80) Pulse Ox 91 O2 Delivery BiPAP/CPAP Room Air Intake and Output 04/10/19 04/10/19 04/11/19 15:00 23:00 07:00 Intake Total 300 ml Output Total 5 ml Balance 295 ml TAYLOR CORDOVA MD Apr 11, 2019 09:25
[2019-04-11] MEDS ORDERED: MECLIZINE HCL 12.5 MG TABLET. PO PRN (09:30)
[2019-04-11] MEDS: INSULIN GLARGINE SYRINGE. SQ SCH ×2 (10:23→21:14)
[2019-04-11] MEDS ORDERED: ALBUTEROL SULFATE 2.5 MG/3 ML NEBU. NEB PRN (10:45)
--- NOTE | 2019-04-11 10:52 | PDOC ---
Infectious Disease Note Subjective Subjective Better but FSBS elevated less pain. No N/V/D/SOA./rash/F Vital Sign Vital Signs Vital Signs Date Time Temp Pulse Resp B/P (MAP) Pulse Ox O2 Delivery O2 Flow Rate FiO2 04/11/19 10:24 Nasal Cannula 04/11/19 07:00 98.3 79 14 119/61 (80) 91 98.3 04/11/19 02:37 2.0 Physical Exam PHYSICAL EXAM CONSTITUTIONAL: She is sitting up on the side of bed. She is morbidly obese. She is cooperative. She is in no acute distress. HEENT: Pupils are equal and reactive. She has normal conjunctivae. Oral cavity, pharynx is clear. NECK: Supple, no JVD. LUNGS: Clear to auscultation bilaterally. Wa son CPAP HEART: S1, S2. ABDOMEN: Morbidly obese, soft, nontender, no guarding or rebound. EXTREMITIES: Without clubbing, cyanosis. Left foot dressed. Right great toe plantar wound. She has a mild right heel ulcer as well. SKIN: Skin is warm to touch without signs of rash. She has some yeast in her folds, also some yeast on her lower extremities. NEUROLOGIC: She is nonfocal, moves all extremities, answers questions. PSYCHIATRIC: Affect is appropriate. Labs Lab Laboratory Tests Test 04/10/19 11:31 04/10/19 15:07 04/10/19 16:55 04/10/19 20:25 Glucose (Fingerstick) 215 mg/dL (70-99) 203 mg/dL (70-99) 242 mg/dL (70-99) 328 mg/dL (70-99) Test 04/11/19 05:45 04/11/19 07:26 White Blood Count 12.7 x10^3/uL (4.0-11.0) Red Blood Count 4.22 x10^6/uL (3.50-5.40) Hemoglobin 12.2 g/dL (12.0-15.5) Hematocrit 37.9 % (36.0-47.0) Mean Corpuscular Volume 90 fL (79-100) Mean Corpuscular Hemoglobin 29 pg (25-35) Mean Corpuscular Hemoglobin Concent 32 g/dL (31-37) Red Cell Distribution Width 17.5 % (11.5-14.5) Platelet Count 317 x10^3/uL (140-400) Neutrophils (%) (Auto) 88 % (31-73) Lymphocytes (%) (Auto) 6 % (24-48) Monocytes (%) (Auto) 5 % (0-9) Eosinophils (%) (Auto) 1 % (0-3) Basophils (%) (Auto) 0 % (0-3) Neutrophils # (Auto) 11.2 x10^3/uL (1.8-7.7) Lymphocytes # (Auto) 0.8 x10^3/uL (1.0-4.8) Monocytes # (Auto) 0.7 x10^3/uL (0.0-1.1) Eosinophils # (Auto) 0.1 x10^3/uL (0.0-0.7) Basophils # (Auto) 0.0 x10^3/uL (0.0-0.2) Sodium Level 139 mmol/L (136-145) Potassium Level 5.8 mmol/L (3.5-5.1) Chloride Level 103 mmol/L (98-107) Carbon Dioxide Level 29 mmol/L (21-32) Anion Gap 7 (6-14) Blood Urea Nitrogen 29 mg/dL (7-20) Creatinine 1.3 mg/dL (0.6-1.0) Estimated GFR (Cockcroft-Gault) 42.1 Glucose Level 344 mg/dL (70-99) Calcium Level 8.1 mg/dL (8.5-10.1) Glucose (Fingerstick) 327 mg/dL (70-99) Micro Microbiology 04/10/19 Blood Culture - Preliminary, Resulted NO GROWTH AFTER 1 DAY Objective Assessment L 3 rd toe osteomyelitis - infection - despite amoxicillin/Clinda Left third toe amputation metatarsal, with toe, single 04/10 ALISIA Cephalexin allegy -swelling and throat closing leukocytosis - now s/p steroids prior to surgery Yeast skin Dm Right plantar wound Plan Plan of Care cont fluconazole/Meropenem/Dapto will need to check cults F/u labs and cults Wound care following F/u right plantar wound PICC line and Social service consult D/w nursing MEG BURNS MD Apr 11, 2019 10:52
[2019-04-11 10:53] LABS: % BANDS 6 % (0-9); % LYMPHS 3 % (24-48); % MONOS 4 % (0-10); % SEGS 87 % (35-66); ANISOCYTOSIS SLIGHT; PLT ESTIMATE ADEQUATE (ADEQUATE)
[2019-04-11 11:00] VITALS: BP 162/80
[2019-04-11] MEDS ORDERED: ALBUTEROL SULFATE 2.5 MG/3 ML NEBU. NEB ONE (11:00)
--- NOTE | 2019-04-11 11:54 | NUR ---
SS following up with discharge planning. SS received notification that pt may need assistance with IV abx set up for discharge. Pt is self pay. [facility] following pt for self pay status. SS met with pt to discuss needs. Pt reported that she lives in [place] and has transportation to and from appointments. Pt reported that she would prefer outpatient services to be set up at [facility] but if [facility] declines reported understanding that she would need to come to [facility] for outpatient services if needed. SS will continue to follow for discharge planning.
[2019-04-11] MEDS: LACTOBACILLUS RHAMNOSUS GG 1 CAPSULE. PO SCH ×2 (12:00→21:00)
[2019-04-11] MEDS: NORMAL SALINE IV SCH (13:12)
[2019-04-11] MEDS: DAPTOMYCIN IV SCH (13:12)
--- NOTE | 2019-04-11 14:13 | NUR ---
PICC Pre-insertion Note: Allergies and reactions: Cephalexin, Iodine INR NA BUN 29 Cr 1.3 Platelets 317 Blood culture done No growth x 1 day. blood culture results No growth x 1 day Order Verified yes Consent signed yes Previous PICC placement Yes Past Medical/Surgical history and current diagnosis reviewed Patient Medical /Surgical History Related to PICC line placement Diabetes Infectious Disease consult Past central line or venous access device placement Special considerations for PICC line placement Infections PICC placement indication Direct Service Provider IV antibiotics Ally Thayer RN PICC Nurse
--- NOTE | 2019-04-11 14:45 | NUR ---
PICC Line Insertion Note: Procedure: Following complete explanation of the PICC procedure including the indications, risks, and potential complications, informed consent was obtained. The possibility for infection was discussed along with signs, symptoms, and prevention. All the questions were answered. Written and verbal patient education was provided. Hand hygiene performed. Standardized central line checklist was utilized. The patient was placed in the supine position, the arm was prepped with chlorhexidine and patient draped with maximum sterile barrier. 3 mL 1% lidocaine was infiltrated into the skin to provide local anesthesia. A thorough assessment of Right upper extremity completed. Using real-time ultrasound guidance and standardized micro puncture set, the Brachial vein was punctured and a peel away sheath was placed using the modified Seldinger technique. A tip location device was used to ensure adequate catheter placement. The catheter was secured using a securement device and an antimicrobial patch was applied directly on the insertion site followed by a transparent dressing. All ports withdraw blood and flush without resistance. Patient tolerated the procedure without apparent complication(s). Single Lumen Power PICC placement successful and uncomplicated. Placement verified by EKG tip confirmation system and/or chest x-ray. Tip located in the CAJ/SVC. Complications: NONE Catheter length 43cm with 0cm visible at insertion site.
[2019-04-11 15:00] VITALS: BP 128/58
[2019-04-11] MEDS: FLUCONAZOLE 200MG/100ML PREMIX 100 ML IV SCH (15:29)
[2019-04-11] MEDS: fentaNYL PF VIAL 100 MCG/2 ML VIAL IV PRN (15:31)
--- NOTE | 2019-04-11 15:51 | NUR ---
Wound care: Patient seen per wound care consult. See wound assessment. Patient is s/p left 3rd toe DFU amputation on 04/11/19. Patient also has DFU to the right plantar foot and right 2nd toe. These wounds cleansed and assessed measured, and pictured. Recommendations for wound vac to left 3rd toe, which is approved by Dr. Sandoval whom saw patient at bedside. Recommendations for Iodoflex to right plantar and right 2nd toe, cover with ABD pad and kerlix. Iodoflex left in room for the following dressing changes. Skin prepped and ostomy ring applied to radha-wound, a contact layer was placed to cover the exposed bone, 1 piece of foam placed in wound, a good seal was maintained at 125mmHg continuous. No other wounds noted upon complete head to toe assessment. Bed lowered and call light in reach. Patient wishes to follow up with us in the wound clinic. Wound care to follow patient.
--- NOTE | 2019-04-11 15:59 | RAD ---
Portable chest x-ray without comparison for shortness of breath. FINDINGS: There is central vascular congestion with appearance of developing pulmonary edema. Right hemidiaphragm is elevated. Cardiac silhouette is enlarged. Left base is not well seen and may conceal atelectasis, pneumonia, or pleural effusion. Small calcification at the insertion of the rotator cuff is noted. No other significant osseous anomalies. IMPRESSION: 1. Findings suggestive developing congestive heart failure with diffuse pulmonary edema. Underlying infiltrate in the left lung base cannot excluded. 2. Left rotator cuff calcific tendinopathy. Electronically signed by: Kedar Parish MD (04/11/2019 3:57 PM) [facility]
[2019-04-11 19:00] VITALS: BP 124/60
[2019-04-11] MEDS ORDERED: FUROSEMIDE 40 MG/4 ML VIAL. IVP ONE (19:00)
[2019-04-11] MEDS: ASPIRIN ENTERIC COATED 325 MG TABLET.DR. PO SCH (21:00)
[2019-04-11] MEDS: GABAPENTIN 400 MG CAPSULE. PO SCH (21:00)
[2019-04-11 23:00] VITALS: BP 110/56
--- NOTE | 2019-04-12 02:24 | NUR ---
Aide checked patients vitals and was 75% with her CPAP on, RN put patient on 3L instead of CPAP and O2 came up to 94%. RN will continue to monitor patient closely.
[2019-04-12 02:32] VITALS: BP 136/59
--- NOTE | 2019-04-12 03:15 | NUR ---
Patient stated that she was concerned about her arms being warm to the touch and hands swollen and cold. Radial pulses present and normal. Patient stated that this didn't start until after the PICC line was placed. RN contacted Dr. Marshall with the patients concerns, orders were received and implemented at that time.
[2019-04-12] MEDS: HYDROcodone/APAP 5/325MG 1 TAB TABLET PO PRN ×2 (04:17→20:48)
[2019-04-12 05:09] LABS: BASO # 0.1 x10^3/uL (0.0-0.2); BASO % 1 % (0-3); EOS # 0.5 x10^3/uL (0.0-0.7); EOS % 5 % (0-3); HEMOGLOBIN 11.3 g/dL (12.0-15.5); LYMPH # 1.5 x10^3/uL (1.0-4.8); LYMPH % 14 % (24-48); MEAN CORPUSCULAR HEMOGLOBIN 29 pg (25-35); MEAN CORPUSCULAR HGB CONC 32 g/dL (31-37); MEAN CORPUSCULAR VOLUME 89 fL (79-100); MONO # 0.8 x10^3/uL (0.0-1.1); MONO % 8 % (0-9); NEUT % 73 % (31-73); PLATELET COUNT 288 x10^3/uL (140-400); RED BLOOD COUNT 3.92 x10^6/uL (3.50-5.40); RED CELL DISTRIBUTION WIDTH 17.2 % (11.5-14.5)
[2019-04-12 05:41] LABS: CALCIUM 7.9 mg/dL (8.5-10.1); CREATININE 0.8 mg/dL (0.6-1.0); GFR 73.7; POTASSIUM 4.7 mmol/L (3.5-5.1)
--- NOTE | 2019-04-12 06:17 | RAD ---
Bilateral upper extremity venous duplex Doppler ultrasound HISTORY: Bilateral upper extremity swelling, history of right PICC line. TECHNIQUE: Grayscale and duplex Doppler sonography were utilized. FINDINGS: No DVT of the internal jugular veins, subclavian veins, axillary veins, brachial veins, radial veins and ulnar veins. There is a right PICC line within the basilic vein extending through the axillary and subclavian veins. IMPRESSION: Negative upper extremity for DVT. Electronically signed by: Hima Huerta MD (04/12/2019 6:14 AM) [facility]
[2019-04-12] MEDS: MEROPENEM 1 GM in IV NORMAL SALINE 100ML 100 ML IV SCH ×3 (06:31→21:18)
[2019-04-12 07:00] VITALS: BP 126/54
[2019-04-12] MEDS: INSULIN LISPRO 300 UNITS/3 ML VIAL. SQ SCH ×6 (07:30→17:03)
[2019-04-12] MEDS: LACTOBACILLUS RHAMNOSUS GG 1 CAPSULE. PO SCH ×2 (08:23→20:48)
[2019-04-12] MEDS: GABAPENTIN 300 MG CAPSULE. PO SCH ×2 (08:23→14:12)
[2019-04-12] MEDS: INSULIN GLARGINE SYRINGE. SQ SCH ×2 (08:26→20:56)
--- NOTE | 2019-04-12 08:48 | PDOC ---
Infectious Disease Note Subjective Subjective Better but FSBS elevated less pain. No N/V/D/SOA./rash/F Vital Sign Vital Signs Vital Signs Date Time Temp Pulse Resp B/P (MAP) Pulse Ox O2 Delivery O2 Flow Rate FiO2 04/12/19 07:32 Nasal Cannula 3.0 04/12/19 07:00 98.1 83 14 126/54 (78) 93 98.1 Physical Exam PHYSICAL EXAM CONSTITUTIONAL: She is sitting up on the side of bed. She is morbidly obese. She is cooperative. She is in no acute distress. HEENT: Pupils are equal and reactive. She has normal conjunctivae. Oral cavity, pharynx is clear. NECK: Supple, no JVD. LUNGS: Clear to auscultation bilaterally. Wa son CPAP HEART: S1, S2. ABDOMEN: Morbidly obese, soft, nontender, no guarding or rebound. EXTREMITIES: Without clubbing, cyanosis. Left foot dressed. Right great toe plantar wound. She has a mild right heel ulcer as well. SKIN: Skin is warm to touch without signs of rash. She has some yeast in her folds, also some yeast on her lower extremities. NEUROLOGIC: She is nonfocal, moves all extremities, answers questions. PSYCHIATRIC: Affect is appropriate. Labs Lab Laboratory Tests Test 04/11/19 11:22 04/11/19 16:39 04/11/19 21:00 04/12/19 02:13 Glucose (Fingerstick) 313 mg/dL (70-99) 170 mg/dL (70-99) 161 mg/dL (70-99) 175 mg/dL (70-99) Test 04/12/19 05:00 04/12/19 07:17 White Blood Count 11.0 x10^3/uL (4.0-11.0) Red Blood Count 3.92 x10^6/uL (3.50-5.40) Hemoglobin 11.3 g/dL (12.0-15.5) Hematocrit 35.0 % (36.0-47.0) Mean Corpuscular Volume 89 fL (79-100) Mean Corpuscular Hemoglobin 29 pg (25-35) Mean Corpuscular Hemoglobin Concent 32 g/dL (31-37) Red Cell Distribution Width 17.2 % (11.5-14.5) Platelet Count 288 x10^3/uL (140-400) Neutrophils (%) (Auto) 73 % (31-73) Lymphocytes (%) (Auto) 14 % (24-48) Monocytes (%) (Auto) 8 % (0-9) Eosinophils (%) (Auto) 5 % (0-3) Basophils (%) (Auto) 1 % (0-3) Neutrophils # (Auto) 8.0 x10^3/uL (1.8-7.7) Lymphocytes # (Auto) 1.5 x10^3/uL (1.0-4.8) Monocytes # (Auto) 0.8 x10^3/uL (0.0-1.1) Eosinophils # (Auto) 0.5 x10^3/uL (0.0-0.7) Basophils # (Auto) 0.1 x10^3/uL (0.0-0.2) Sodium Level 144 mmol/L (136-145) Potassium Level 4.7 mmol/L (3.5-5.1) Chloride Level 108 mmol/L (98-107) Carbon Dioxide Level 33 mmol/L (21-32) Anion Gap 3 (6-14) Blood Urea Nitrogen 27 mg/dL (7-20) Creatinine 0.8 mg/dL (0.6-1.0) Estimated GFR (Cockcroft-Gault) 73.7 Glucose Level 180 mg/dL (70-99) Calcium Level 7.9 mg/dL (8.5-10.1) Glucose (Fingerstick) 153 mg/dL (70-99) Micro Microbiology 04/10/19 Blood Culture - Preliminary, Resulted NO GROWTH AFTER 1 DAY Objective Assessment L 3 rd toe osteomyelitis - infection - despite amoxicillin/Clinda Left third toe amputation metatarsal, with toe, single 04/10 ALISIA Cephalexin allegy -swelling and throat closing leukocytosis - now s/p steroids prior to surgery Yeast skin Dm Right plantar wound Plan Plan of Care cont fluconazole/Meropenem/Dapto will need to check cults F/u labs and cults Wound care following F/u right plantar wound PICC line and Social service consult D/w nursing MEG BURNS MD Apr 12, 2019 08:48
--- NOTE | 2019-04-12 09:06 | PDOC ---
PROGRESS NOTES Chief Complaint Chief Complaint impression 1. LEft THIRD TOE Gangrene -s/p amputation 9/ (POD # 2) 2. RT heel ulcer - wound care 3. OSteomyelitis - as per [place] xray - 4. DM with hgba1c 9.7 and neuropathy and target organ damage - hx osteo, partial amputation big toe 5. Obesity 6. HTN - controlled 7,. Lymphedema 8. POst op confusion, transient 9, POst op mild hyperkalemia 5.5 10. Post op ALISIA, VMN 11. developing congestive heart failure with diffuse pulmonary edema. Underlying infiltrate in the left lung base cannot excluded. 12. Left rotator cuff calcific tendinopathy. 13. severe protein-caloric malnutrition cardiology consult echo cont fluconazole/Meropenem/Dapto 28 min pt exam, chart review, > 50% of time spent with exam, chart review, pt care coordination History of Present Illness History of Present Illness POD # 1 - some transient confusion last night- she thought she was in a hotel BS high! 300s HGba1c 9.7 WBC 12,7 ESR 105, platelets 317 hgb 12 K 5,5, creat 1,3 from 0.9 - on lasix 20 BID at home ALso requests her meclizine ON hefty doses insulin 27 units mealtimes and 70 qhs PLAN: STart lantus 25 qdaily first dose now AWAIT wound care re that RT heel ulcer and toe wound POst op care/labs PT.OT Self pay? IV abx per ID NO IVF for now re that creat kayexylate 15 x 1 re K 5.5 REcheck BMP tmr - if creat worse, then she agreed to IVF - she did not want to start iVF - afraid of lymphedema OK for home meclizine no lasix for now Vitals Vitals Vital Signs Date Time Temp Pulse Resp B/P (MAP) Pulse Ox O2 Delivery O2 Flow Rate FiO2 04/12/19 07:32 Nasal Cannula 3.0 04/12/19 07:00 98.1 83 14 126/54 (78) 93 98.1 Physical Exam Physical Exam CONSTITUTIONAL: She is sitting up on the side of bed. She is morbidly obese. She is cooperative. She is in no acute distress. HEENT: Pupils are equal and reactive. She has normal conjunctivae. Oral cavity, pharynx is clear. NECK: Supple, no JVD. LUNGS: Clear to auscultation bilaterally. Wa son CPAP HEART: S1, S2. ABDOMEN: Morbidly obese, soft, nontender, no guarding or rebound. EXTREMITIES: Without clubbing, cyanosis. Left foot dressed. Right great toe plantar wound. She has a mild right heel ulcer as well. SKIN: Skin is warm to touch without signs of rash. She has some yeast in her folds, also some yeast on her lower extremities. NEUROLOGIC: She is nonfocal, moves all extremities, answers questions. PSYCHIATRIC: Affect is appropriate. General: Alert, Oriented X3, Cooperative, No acute distress, mild distress Heart: Regular rate, Normal S1, Normal S2, No murmurs Lungs: Clear Abdomen: Normal bowel sounds, Soft, No tenderness Extremities: No clubbing, No cyanosis, Other (left leg dressing, rt leg dressing, amputated toe wound vac) Skin: Other (gangrene right third toe) Labs LABS Derrek Albert M.D., Industrial Maintenance Tech PATIENT: VANNA CARBAJAL ACCT: [id number] LOC: [address] [place] [address] U: [id number] AGE/SX: 58/F ROOM: [facility] RE04/09/[address]: EWELINA GUZMAN III DO : 1960 BED: 1 DIS: STATUS: ADM IN TLOC: SPEC #: [id number] VERONICA: 04/10/19 STATUS: RES REQ #: [id number] RECD: 04/10/[address] [facility] [address]: TAYLOR CORDOVA MD SOURCE: BLOOD ENTR: 04/10/[address]: EWELINA GUZMAN III DO [facility]: NO PCP SUSANA AGUAYO MD ORDERED: BCULT Procedure Result BLOOD CULTURE Preliminary NO GROWTH AFTER 1 DAY STATUS: ADM IN ORD. PHYSICIAN: TAYLOR CORDOVA MD REASON: SOB PROCEDURE: PORTABLE CHEST 1V Portable chest x-ray without comparison for shortness of breath. FINDINGS: There is central vascular congestion with appearance of developing pulmonary edema. Right hemidiaphragm is elevated. Cardiac silhouette is enlarged. Left base is not well seen and may conceal atelectasis, pneumonia, or pleural effusion. Small calcification at the insertion of the rotator cuff is noted. No other significant osseous anomalies. IMPRESSION: 1. Findings suggestive developing congestive heart failure with diffuse pulmonary edema. Underlying infiltrate in the left lung base cannot excluded. 2. Left rotator cuff calcific tendinopathy. Electronically signed by: Kedar Carty MD (04/11/2019 3:57 PM) [facility] DICTATED and SIGNED BY: KEDAR CARTY MD DATE: 04/11/19 1556 Bilateral upper extremity venous duplex Doppler ultrasound HISTORY: Bilateral upper extremity swelling, history of right PICC line. TECHNIQUE: Grayscale and duplex Doppler sonography were utilized. FINDINGS: No DVT of the internal jugular veins, subclavian veins, axillary veins, brachial veins, radial veins and ulnar veins. There is a right PICC line within the basilic vein extending through the axillary and subclavian veins. IMPRESSION: Negative upper extremity for DVT. Electronically signed by: Hima Huerta MD (04/12/2019 6:14 AM) [facility] Laboratory Tests Test 04/11/19 11:22 04/11/19 16:39 04/11/19 21:00 04/12/19 02:13 Glucose (Fingerstick) 313 mg/dL (70-99) 170 mg/dL (70-99) 161 mg/dL (70-99) 175 mg/dL (70-99) Test 04/12/19 05:00 04/12/19 07:17 White Blood Count 11.0 x10^3/uL (4.0-11.0) Red Blood Count 3.92 x10^6/uL (3.50-5.40) Hemoglobin 11.3 g/dL (12.0-15.5) Hematocrit 35.0 % (36.0-47.0) Mean Corpuscular Volume 89 fL (79-100) Mean Corpuscular Hemoglobin 29 pg (25-35) Mean Corpuscular Hemoglobin Concent 32 g/dL (31-37) Red Cell Distribution Width 17.2 % (11.5-14.5) Platelet Count 288 x10^3/uL (140-400) Neutrophils (%) (Auto) 73 % (31-73) Lymphocytes (%) (Auto) 14 % (24-48) Monocytes (%) (Auto) 8 % (0-9) Eosinophils (%) (Auto) 5 % (0-3) Basophils (%) (Auto) 1 % (0-3) Neutrophils # (Auto) 8.0 x10^3/uL (1.8-7.7) Lymphocytes # (Auto) 1.5 x10^3/uL (1.0-4.8) Monocytes # (Auto) 0.8 x10^3/uL (0.0-1.1) Eosinophils # (Auto) 0.5 x10^3/uL (0.0-0.7) Basophils # (Auto) 0.1 x10^3/uL (0.0-0.2) Sodium Level 144 mmol/L (136-145) Potassium Level 4.7 mmol/L (3.5-5.1) Chloride Level 108 mmol/L (98-107) Carbon Dioxide Level 33 mmol/L (21-32) Anion Gap 3 (6-14) Blood Urea Nitrogen 27 mg/dL (7-20) Creatinine 0.8 mg/dL (0.6-1.0) Estimated GFR (Cockcroft-Gault) 73.7 Glucose Level 180 mg/dL (70-99) Calcium Level 7.9 mg/dL (8.5-10.1) Glucose (Fingerstick) 153 mg/dL (70-99) Comment Review of Relevant I have reviewed the following items adrienne (where applicable) has been applied. Labs Laboratory Tests Test 04/10/19 09:30 04/10/19 11:31 04/10/19 15:07 04/10/19 16:55 White Blood Count 11.4 x10^3/uL (4.0-11.0) Red Blood Count 4.25 x10^6/uL (3.50-5.40) Hemoglobin 12.2 g/dL (12.0-15.5) Hematocrit 37.5 % (36.0-47.0) Mean Corpuscular Volume 88 fL (79-100) Mean Corpuscular Hemoglobin 29 pg (25-35) Mean Corpuscular Hemoglobin Concent 33 g/dL (31-37) Red Cell Distribution Width 17.2 % (11.5-14.5) Platelet Count 271 x10^3/uL (140-400) Neutrophils (%) (Auto) 83 % (31-73) Lymphocytes (%) (Auto) 6 % (24-48) Monocytes (%) (Auto) 7 % (0-9) Eosinophils (%) (Auto) 4 % (0-3) Basophils (%) (Auto) 1 % (0-3) Neutrophils # (Auto) 9.5 x10^3/uL (1.8-7.7) Lymphocytes # (Auto) 0.7 x10^3/uL (1.0-4.8) Monocytes # (Auto) 0.8 x10^3/uL (0.0-1.1) Eosinophils # (Auto) 0.4 x10^3/uL (0.0-0.7) Basophils # (Auto) 0.1 x10^3/uL (0.0-0.2) Erythrocyte Sedimentation Rate 105 (0-25) Sodium Level 143 mmol/L (136-145) Potassium Level 4.2 mmol/L (3.5-5.1) Chloride Level 104 mmol/L (98-107) Carbon Dioxide Level 33 mmol/L (21-32) Anion Gap 6 (6-14) Blood Urea Nitrogen 19 mg/dL (7-20) Creatinine 0.9 mg/dL (0.6-1.0) Estimated GFR (Cockcroft-Gault) 64.3 BUN/Creatinine Ratio 21 (6-20) Glucose Level 211 mg/dL (70-99) Hemoglobin A1c 9.7 % (4.8-5.6) Calcium Level 8.8 mg/dL (8.5-10.1) Total Bilirubin 0.5 mg/dL (0.2-1.0) Aspartate Amino Transf (AST/SGOT) 12 U/L (15-37) Alanine Aminotransferase (ALT/SGPT) 26 U/L (14-59) Alkaline Phosphatase 151 U/L (46-116) Total Protein 6.9 g/dL (6.4-8.2) Albumin 2.2 g/dL (3.4-5.0) Albumin/Globulin Ratio 0.5 (1.0-1.7) Glucose (Fingerstick) 215 mg/dL (70-99) 203 mg/dL (70-99) 242 mg/dL (70-99) Test 04/10/19 20:25 04/11/19 05:45 04/11/19 07:26 04/11/19 11:22 Glucose (Fingerstick) 328 mg/dL (70-99) 327 mg/dL (70-99) 313 mg/dL (70-99) White Blood Count 12.7 x10^3/uL (4.0-11.0) Red Blood Count 4.22 x10^6/uL (3.50-5.40) Hemoglobin 12.2 g/dL (12.0-15.5) Hematocrit 37.9 % (36.0-47.0) Mean Corpuscular Volume 90 fL (79-100) Mean Corpuscular Hemoglobin 29 pg (25-35) Mean Corpuscular Hemoglobin Concent 32 g/dL (31-37) Red Cell Distribution Width 17.5 % (11.5-14.5) Platelet Count 317 x10^3/uL (140-400) Neutrophils (%) (Auto) 88 % (31-73) Lymphocytes (%) (Auto) 6 % (24-48) Monocytes (%) (Auto) 5 % (0-9) Eosinophils (%) (Auto) 1 % (0-3) Basophils (%) (Auto) 0 % (0-3) Neutrophils # (Auto) 11.2 x10^3/uL (1.8-7.7) Lymphocytes # (Auto) 0.8 x10^3/uL (1.0-4.8) Monocytes # (Auto) 0.7 x10^3/uL (0.0-1.1) Eosinophils # (Auto) 0.1 x10^3/uL (0.0-0.7) Basophils # (Auto) 0.0 x10^3/uL (0.0-0.2) Segmented Neutrophils % 87 % (35-66) Band Neutrophils % 6 % (0-9) Lymphocytes % 3 % (24-48) Monocytes % 4 % (0-10) Platelet Estimate Adequate (ADEQUATE) Anisocytosis Slight Sodium Level 139 mmol/L (136-145) Potassium Level 5.8 mmol/L (3.5-5.1) Chloride Level 103 mmol/L (98-107) Carbon Dioxide Level 29 mmol/L (21-32) Anion Gap 7 (6-14) Blood Urea Nitrogen 29 mg/dL (7-20) Creatinine 1.3 mg/dL (0.6-1.0) Estimated GFR (Cockcroft-Gault) 42.1 Glucose Level 344 mg/dL (70-99) Calcium Level 8.1 mg/dL (8.5-10.1) Test 04/11/19 16:39 04/11/19 21:00 04/12/19 02:13 04/12/19 05:00 Glucose (Fingerstick) 170 mg/dL (70-99) 161 mg/dL (70-99) 175 mg/dL (70-99) White Blood Count 11.0 x10^3/uL (4.0-11.0) Red Blood Count 3.92 x10^6/uL (3.50-5.40) Hemoglobin 11.3 g/dL (12.0-15.5) Hematocrit 35.0 % (36.0-47.0) Mean Corpuscular Volume 89 fL (79-100) Mean Corpuscular Hemoglobin 29 pg (25-35) Mean Corpuscular Hemoglobin Concent 32 g/dL (31-37) Red Cell Distribution Width 17.2 % (11.5-14.5) Platelet Count 288 x10^3/uL (140-400) Neutrophils (%) (Auto) 73 % (31-73) Lymphocytes (%) (Auto) 14 % (24-48) Monocytes (%) (Auto) 8 % (0-9) Eosinophils (%) (Auto) 5 % (0-3) Basophils (%) (Auto) 1 % (0-3) Neutrophils # (Auto) 8.0 x10^3/uL (1.8-7.7) Lymphocytes # (Auto) 1.5 x10^3/uL (1.0-4.8) Monocytes # (Auto) 0.8 x10^3/uL (0.0-1.1) Eosinophils # (Auto) 0.5 x10^3/uL (0.0-0.7) Basophils # (Auto) 0.1 x10^3/uL (0.0-0.2) Sodium Level 144 mmol/L (136-145) Potassium Level 4.7 mmol/L (3.5-5.1) Chloride Level 108 mmol/L (98-107) Carbon Dioxide Level 33 mmol/L (21-32) Anion Gap 3 (6-14) Blood Urea Nitrogen 27 mg/dL (7-20) Creatinine 0.8 mg/dL (0.6-1.0) Estimated GFR (Cockcroft-Gault) 73.7 Glucose Level 180 mg/dL (70-99) Calcium Level 7.9 mg/dL (8.5-10.1) Test 04/12/19 07:17 Glucose (Fingerstick) 153 mg/dL (70-99) Laboratory Tests Test 04/11/19 11:22 04/11/19 16:39 04/11/19 21:00 04/12/19 02:13 Glucose (Fingerstick) 313 mg/dL (70-99) 170 mg/dL (70-99) 161 mg/dL (70-99) 175 mg/dL (70-99) Test 04/12/19 05:00 04/12/19 07:17 White Blood Count 11.0 x10^3/uL (4.0-11.0) Red Blood Count 3.92 x10^6/uL (3.50-5.40) Hemoglobin 11.3 g/dL (12.0-15.5) Hematocrit 35.0 % (36.0-47.0) Mean Corpuscular Volume 89 fL (79-100) Mean Corpuscular Hemoglobin 29 pg (25-35) Mean Corpuscular Hemoglobin Concent 32 g/dL (31-37) Red Cell Distribution Width 17.2 % (11.5-14.5) Platelet Count 288 x10^3/uL (140-400) Neutrophils (%) (Auto) 73 % (31-73) Lymphocytes (%) (Auto) 14 % (24-48) Monocytes (%) (Auto) 8 % (0-9) Eosinophils (%) (Auto) 5 % (0-3) Basophils (%) (Auto) 1 % (0-3) Neutrophils # (Auto) 8.0 x10^3/uL (1.8-7.7) Lymphocytes # (Auto) 1.5 x10^3/uL (1.0-4.8) Monocytes # (Auto) 0.8 x10^3/uL (0.0-1.1) Eosinophils # (Auto) 0.5 x10^3/uL (0.0-0.7) Basophils # (Auto) 0.1 x10^3/uL (0.0-0.2) Sodium Level 144 mmol/L (136-145) Potassium Level 4.7 mmol/L (3.5-5.1) Chloride Level 108 mmol/L (98-107) Carbon Dioxide Level 33 mmol/L (21-32) Anion Gap 3 (6-14) Blood Urea Nitrogen 27 mg/dL (7-20) Creatinine 0.8 mg/dL (0.6-1.0) Estimated GFR (Cockcroft-Gault) 73.7 Glucose Level 180 mg/dL (70-99) Calcium Level 7.9 mg/dL (8.5-10.1) Glucose (Fingerstick) 153 mg/dL (70-99) Microbiology 04/10/19 Blood Culture - Preliminary, Resulted NO GROWTH AFTER 1 DAY Medications Current Medications Vancomycin HCl (Vanco Per Pharmacy) 1 each PRN DAILY PRN MC SEE COMMENTS Last administered on 04/10/19at 03:41; Start 04/09/19 at 22:30; Stop 04/10/19 at 12:36; Status DC Piperacillin Sod/ Tazobactam Sod (Zosyn Per Pharmacy) 1 each PRN DAILY PRN MC SEE COMMENTS; Start 04/09/19 at 22:30; Stop 04/10/19 at 12:35; Status DC Sodium Chloride 1,000 ml @ 100 mls/hr Q10H IV Last administered on 04/11/19at 05:23; Start 04/09/19 at 23:00; Stop 04/11/19 at 09:26; Status DC Acetaminophen/ Hydrocodone Bitart (Lortab 5/325) 1 tab PRN Q4HRS PRN PO MODERATE PAIN 4-6; Start 04/09/19 at 22:30 Acetaminophen/ Hydrocodone Bitart (Lortab 5/325) 2 tab PRN Q4HRS PRN PO SEVERE PAIN 7-10 Last administered on 04/12/19at 04:17; Start 04/09/19 at 22:30 Insulin Glargine (Lantus Syringe) 70 unit QHS SQ Last administered on 04/11/19at 21:14; Start 04/09/19 at 23:00 Insulin Human Lispro (HumaLOG) 20 units 1X ONCE SQ Last administered on 04/09/19at 23:02; Start 04/09/19 at 23:00; Stop 04/09/19 at 23:01; Status DC Insulin Human Lispro (HumaLOG) 0-7 UNITS TIDWMEALS SQ ; Start 04/10/19 at 08:00; Stop 04/10/19 at 08:08; Status DC Dextrose (Dextrose 50%-Water Syringe) 12.5 gm PRN Q15MIN PRN IV SEE COMMENTS; Start 04/09/19 at 22:30; Status Cancel Dextrose 250 ml PRN Q15MIN PRN IV SEE COMMENTS; Start 04/09/19 at 22:30; Status Cancel Insulin Human Lispro (HumaLOG) 26 units TIDAC SQ Last administered on 04/11/19at 17:16; Start 04/10/19 at 07:30 Piperacillin Sod/ Tazobactam Sod 3.375 gm/Sodium Chloride 50 ml @ 100 mls/hr Q6HRS IV Last administered on 04/10/19at 11:35; Start 04/10/19 at 00:00; Stop 04/10/19 at 12:35; Status DC Gabapentin (Neurontin) 900 mg BID92 PO Last administered on 04/12/19at 08:27; Start 04/10/19 at 09:00 Gabapentin (Neurontin) 1,200 mg HS PO Last administered on 04/11/19at 21:01; Start 04/10/19 at 21:00 Atenolol (Tenormin) 40 mg DAILY PO ; Start 04/10/19 at 09:00; Status UNV Vancomycin HCl 2 gm/Sodium Chloride 500 ml @ 250 mls/hr Q12H IV Last administered on 04/10/19at 05:20; Start 04/10/19 at 05:00; Stop 04/10/19 at 12:36; Status DC Vancomycin HCl (Vancomycin Trough Level) 1 each 1X ONCE MC ; Start 04/11/19 at 04:30; Stop 04/11/19 at 04:31; Status Cancel Insulin Human Lispro (HumaLOG) 0-9 UNITS TIDWMEALS SQ Last administered on 04/12/19at 08:27; Start 04/10/19 at 12:00 Dextrose (Dextrose 50%-Water Syringe) 12.5 gm PRN Q15MIN PRN IV SEE COMMENTS; Start 04/10/19 at 08:15 Dextrose 250 ml PRN Q15MIN PRN IV SEE COMMENTS; Start 04/10/19 at 08:15 Acetaminophen (Tylenol) 500 mg PRN Q6HRS PRN PO MILD PAIN / TEMP; Start 04/10/19 at 08:15 Ondansetron HCl (Zofran) 4 mg PRN Q6HRS PRN IV NAUSEA/VOMITING; Start 04/10/19 at 08:15 Fentanyl Citrate (Fentanyl 2ml Vial) 50 mcg PRN Q2HR PRN IV PAIN Last administered on 04/11/19at 15:31; Start 04/10/19 at 08:15 Sodium Chloride ([place] Saline Nasal) 1 nadeem PRN Q2HRS PRN NS NASAL CONGESTION Last administered on 04/10/19at 15:54; Start 04/10/19 at 11:45 Fluconazole/ Sodium Chloride 100 ml @ 100 mls/hr Q24H IV Last administered on 04/11/19at 15:31; Start 04/10/19 at 13:00 Meropenem 1 gm/ Sodium Chloride 100 ml @ 200 mls/hr Q8HRS IV Last administered on 04/12/19at 06:31; Start 04/10/19 at 14:00 Daptomycin 900 mg/ Sodium Chloride 50 ml @ 100 mls/hr Q24H IV Last administered on 04/11/19at 13:14; Start 04/10/19 at 13:00 Fentanyl Citrate (Fentanyl 2ml Vial) 25 mcg PRN Q5MIN PRN IV MILD PAIN 1-3; Start 04/10/19 at 13:15; Stop 04/11/19 at 11:49; Status DC Fentanyl Citrate (Fentanyl 2ml Vial) 50 mcg PRN Q5MIN PRN IV MODERATE TO SEVERE PAIN; Start 04/10/19 at 13:15; Stop 04/11/19 at 11:49; Status DC Morphine Sulfate (Morphine Sulfate) 1 mg PRN Q10MIN PRN IV SEVERE PAIN 7-10; Start 04/10/19 at 13:15; Stop 04/11/19 at 11:50; Status DC Ringer's Solution 1,000 ml @ 30 mls/hr Q24H IV ; Start 04/10/19 at 13:14; Stop 04/11/19 at 01:13; Status DC Hydromorphone HCl (Dilaudid) 0.5 mg PRN Q10MIN PRN IV SEV PAIN, Second choice; Start 04/10/19 at 13:15; Stop 04/11/19 at 11:50; Status DC Prochlorperazine Edisylate (Compazine) 5 mg PACU PRN PRN IV NAUSEA, MRX1; Start 04/10/19 at 13:15; Stop 04/11/19 at 11:50; Status DC Fentanyl Citrate (Fentanyl 2ml Vial) 100 mcg STK-MED ONCE .ROUTE ; Start 04/10/19 at 13:20; Stop 04/10/19 at 13:21; Status DC Sevoflurane (Ultane) 30 ml STK-MED ONCE IH ; Start 04/10/19 at 13:20; Stop 04/10/19 at 13:21; Status DC Propofol 20 ml @ As Directed STK-MED ONCE IV ; Start 04/10/19 at 13:20; Stop 04/10/19 at 13:21; Status DC Dexamethasone Sodium Phosphate (Decadron) 4 mg STK-MED ONCE .ROUTE ; Start 04/10/19 at 13:21; Stop 04/10/19 at 13:21; Status DC Lidocaine HCl (Lidocaine Pf 2% Vial) 5 ml STK-MED ONCE .ROUTE ; Start 04/10/19 at 13:21; Stop 04/10/19 at 13:21; Status DC Ondansetron HCl (Zofran) 4 mg STK-MED ONCE .ROUTE ; Start 04/10/19 at 13:21; Stop 04/10/19 at 13:21; Status DC Phenylephrine HCl (PHENYLEPHRINE in 0.9% NACL PF) 1 mg STK-MED ONCE IV ; Start 04/10/19 at 14:27; Stop 04/10/19 at 14:27; Status DC Aspirin (Ecotrin) 325 mg QHS PO Last administered on 04/11/19at 21:01; Start 04/10/19 at 21:00 Oxycodone/ Acetaminophen (Percocet 5/325) 1 tab PRN Q4HRS PRN PO MODERATE PAIN, LAST OPTION; Start 04/10/19 at 15:15 Oxycodone/ Acetaminophen (Percocet 5/325) 2 tab PRN Q4HRS PRN PO SEVERE PAIN, LAST OPTION Last administered on 04/10/19at 15:54; Start 04/10/19 at 15:30 Insulin Glargine (Lantus Syringe) 30 unit DAILY SQ Last administered on 04/12/19at 08:27; Start 04/11/19 at 09:00 Sodium Polystyrene Sulfonate (Kayexalate) 15 gm 1X ONCE PO Last administered on 04/11/19at 10:24; Start 04/11/19 at 09:00; Stop 04/11/19 at 09:01; Status DC Meclizine HCl (Antivert) 12.5 mg PRN Q6HRS PRN PO DIZZINESS Last administered on 04/11/19at 10:24; Start 04/11/19 at 09:30 Albuterol Sulfate (Ventolin Neb Soln) 2.5 mg PRN Q4HRS PRN NEB SHORTNESS OF BREATH; Start 04/11/19 at 10:45 Albuterol Sulfate (Ventolin Neb Soln) 2.5 mg 1X ONCE NEB Last administered on 04/11/19at 11:54; Start 04/11/19 at 11:00; Stop 04/11/19 at 11:01; Status DC Lactobacillus Rhamnosus (Culturelle) 1 cap BID PO Last administered on 04/12/19at 08:27; Start 04/11/19 at 12:00 Furosemide (Lasix) 40 mg 1X ONCE IVP Last administered on 04/11/19at 20:18; Start 04/11/19 at 19:00; Stop 04/11/19 at 19:01; Status DC Vitals/I & O Vital Sign - Last 24 Hours 04/11/19 04/11/19 04/11/19 04/11/19 08:00 08:47 10:24 11:00 Temp 98.3 98.3 Pulse 78 Resp 16 B/P (MAP) 162/80 (107) Pulse Ox 92 O2 Delivery Nasal Cannula Room Air Nasal Cannula Nasal Cannula O2 Flow Rate 2.0 2.0 04/11/19 04/11/19 04/11/19 04/11/19 11:59 15:00 15:31 17:16 Temp 97.9 97.9 Pulse 79 Resp 16 B/P (MAP) 128/58 (81) Pulse Ox 91 93 O2 Delivery Nasal Cannula Nasal Cannula Nasal Cannula Room Air O2 Flow Rate 3.0 3.0 04/11/19 04/11/19 04/11/19 04/11/19 19:00 19:40 21:01 23:00 Temp 97.7 97.7 97.7 97.7 Pulse 82 83 Resp 18 20 B/P (MAP) 124/60 (81) 110/56 (74) Pulse Ox 98 89 O2 Delivery Nasal Cannula Nasal Cannula Room Air Nasal Cannula O2 Flow Rate 3.0 3.0 3.0 04/12/19 04/12/19 04/12/19 04/12/19 00:51 02:32 04:17 07:00 Temp 97.7 98.1 97.7 98.1 Pulse 86 83 Resp 18 14 B/P (MAP) 136/59 (84) 126/54 (78) Pulse Ox 86 93 O2 Delivery Room Air Nasal Cannula Nasal Cannula Nasal Cannula O2 Flow Rate 3.0 3.0 3.0 04/12/19 07:32 O2 Delivery Nasal Cannula O2 Flow Rate 3.0 Intake and Output 04/11/19 04/12/19 04/12/19 17:00 01:00 09:00 Intake Total 320 ml 300 ml Balance 320 ml 300 ml FLORI BAIRES MD Apr 12, 2019 09:06
--- NOTE | 2019-04-12 09:21 | PDOC ---
Infectious Disease Note Subjective Subjective Better but right arm a little swollen. She finally took her ID band off this am and some better less pain. No N/V/D/SOA./rash/F ROS ROS o/w neg Vital Sign Vital Signs Vital Signs Date Time Temp Pulse Resp B/P (MAP) Pulse Ox O2 Delivery O2 Flow Rate FiO2 04/12/19 07:32 Nasal Cannula 3.0 04/12/19 07:00 98.1 83 14 126/54 (78) 93 98.1 Physical Exam PHYSICAL EXAM CONSTITUTIONAL: She is sitting up on the commode She is morbidly obese. She is cooperative. She is in no acute distress. Looks much better HEENT: Pupils are equal and reactive. She has normal conjunctivae. Oral cavity, pharynx is clear. NECK: Supple, no JVD. LUNGS: Clear to auscultation bilaterally. Wa son CPAP HEART: S1, S2. ABDOMEN: Morbidly obese, soft, nontender, no guarding or rebound. EXTREMITIES: Without clubbing, cyanosis. Left foot vac in place. Right great toe plantar wound - dressed. She has a mild right heel ulcer as well. SKIN: Skin is warm to touch without signs of rash. She has some yeast in her folds, also some yeast on her lower extremities. NEUROLOGIC: She is nonfocal, moves all extremities, answers questions. PSYCHIATRIC: Affect is appropriate IV: PICC RUE - clean Labs Lab Laboratory Tests Test 04/11/19 11:22 04/11/19 16:39 04/11/19 21:00 04/12/19 02:13 Glucose (Fingerstick) 313 mg/dL (70-99) 170 mg/dL (70-99) 161 mg/dL (70-99) 175 mg/dL (70-99) Test 04/12/19 05:00 04/12/19 07:17 White Blood Count 11.0 x10^3/uL (4.0-11.0) Red Blood Count 3.92 x10^6/uL (3.50-5.40) Hemoglobin 11.3 g/dL (12.0-15.5) Hematocrit 35.0 % (36.0-47.0) Mean Corpuscular Volume 89 fL (79-100) Mean Corpuscular Hemoglobin 29 pg (25-35) Mean Corpuscular Hemoglobin Concent 32 g/dL (31-37) Red Cell Distribution Width 17.2 % (11.5-14.5) Platelet Count 288 x10^3/uL (140-400) Neutrophils (%) (Auto) 73 % (31-73) Lymphocytes (%) (Auto) 14 % (24-48) Monocytes (%) (Auto) 8 % (0-9) Eosinophils (%) (Auto) 5 % (0-3) Basophils (%) (Auto) 1 % (0-3) Neutrophils # (Auto) 8.0 x10^3/uL (1.8-7.7) Lymphocytes # (Auto) 1.5 x10^3/uL (1.0-4.8) Monocytes # (Auto) 0.8 x10^3/uL (0.0-1.1) Eosinophils # (Auto) 0.5 x10^3/uL (0.0-0.7) Basophils # (Auto) 0.1 x10^3/uL (0.0-0.2) Sodium Level 144 mmol/L (136-145) Potassium Level 4.7 mmol/L (3.5-5.1) Chloride Level 108 mmol/L (98-107) Carbon Dioxide Level 33 mmol/L (21-32) Anion Gap 3 (6-14) Blood Urea Nitrogen 27 mg/dL (7-20) Creatinine 0.8 mg/dL (0.6-1.0) Estimated GFR (Cockcroft-Gault) 73.7 Glucose Level 180 mg/dL (70-99) Calcium Level 7.9 mg/dL (8.5-10.1) Glucose (Fingerstick) 153 mg/dL (70-99) Micro Microbiology 04/10/19 Blood Culture - Preliminary, Resulted NO GROWTH AFTER 1 DAY Objective Assessment L 3 rd toe osteomyelitis - infection - despite amoxicillin/Clinda Left third toe amputation metatarsal, with toe, single 04/10 ALISIA Cephalexin allegy -swelling and throat closing leukocytosis - now s/p steroids prior to surgery Yeast skin Dm Right plantar wound Plan Plan of Care cont fluconazole/Meropenem/Dapto will need to check cults order from left wound 04/11 she states however were collected from right wound F/u labs and cults Wound care following F/u right plantar wound D/w nursing MEG BURNS MD Apr 12, 2019 09:21
[2019-04-12] MEDS ORDERED: PERFLUTREN PROTEIN-A MICROSPHR 0.22 MG/ML 3 ML VIAL. IV ONE (10:00)
--- NOTE | 2019-04-12 10:07 | PDOC2 ---
CARDIAC CONSULT DATE OF CONSULT Date of Consult DATE: 04/12/19 TIME: 09:59 REASON FOR CONSULT Reason for Consult: CHF REFERRING PHYSICIAN Referring Physician: Ze SOURCE Source: Chart review, Patient HISTORY OF PRESENT ILLNESS HISTORY OF PRESENT ILLNESS This is a pleasant 58 yo female admitted for complains of left foot pain. She does have this nonhealing wound to her left middle toe with uncontrolled diabetes and neuropathy. She was initially at [facility] and was noted over there with acute osteomyelitis to her left foot. She was transferred to [facility] for orthopaedic intervention. She had necrotic tissue and gangrene particularly to her left middle toe and end up with amputation. She did received significant amount of IVF and last night she was noted with possibly decreasing O2 sat despite being on a CPAP and was noted with acute CHF. Presently she is doing better and diuresed well overnight. Denies any CP nor SOA issues prior to her admission. She was tested for PAD at [facility] and was told that she does not have significant PAD to her LE. PAST MEDICAL HISTORY Cardiovascular: CAD, HTN, Hyperlipidemia Pulmonary: Other (CAREY with CPAP) CENTRAL NERVOUS SYSTEM: Other (TBI with x4 concussion and subdural hematoma) GI: GERD Heme/Onc: No pertinent hx, Other (iatrogenic pancreatitis from tegretol) Hepatobiliary: No pertinent hx Psych: Anxiety Musculoskeletal: Osteoarthritis Rheumatologic: No pertinent hx Infectious disease: No pertinent hx, Other (osteomyelitis) ENT: No pertinent hx Renal/: No pertinent hx Endocrine: Diabetes (2) Dermatology: Other (left foot wound and right foot wound) PAST SURGICAL HISTORY Past Surgical History: Appendectomy, Cholecystectomy, (x2), Other (craniotomy) FAMILY HISTORY Family History: Diabetes, Heart Disease, Other (mothers side,with cerebral aneurysm) SOCIAL HISTORY Smoke: No ALCOHOL: occassional Drugs: None Lives: Alone CURRENT MEDICATIONS CURRENT MEDICATIONS Current Medications Medications (Trade) Dose Ordered Sig/Facundo Route PRN Reason Start Time Stop Time Status Last Admin Dose Admin Albuterol Sulfate (Ventolin Neb Soln) 2.5 mg 1X ONCE NEB 04/11/19 11:00 04/11/19 11:01 DC 04/11/19 11:54 Lactobacillus Rhamnosus (Culturelle) 1 cap BID PO 04/11/19 12:00 04/12/19 08:27 Furosemide (Lasix) 40 mg 1X ONCE IVP 04/11/19 19:00 04/11/19 19:01 DC 04/11/19 20:18 ALLERGIES ALLERGIES: Coded Allergies: cephalexin (Verified Allergy, Severe, Anaphylaxis, 04/09/19) tongue swells and throat closes, per patient iodine (Verified Allergy, Severe, 04/09/19) ROS Review of System 14 point ROS evaluated with pertinent positives noted per HPI PHYSICAL EXAM General: Alert, Oriented X3, Cooperative, No acute distress HEENT: Atraumatic, Mucous membr. moist/pink Lungs: Other (diminished bases) Heart: Regular rate, Normal S1, Normal S2, No murmurs Abdomen: Soft, No tenderness, Other (obese) Extremities: No cyanosis, Other (2+bilateral LE pitting edema) Skin: Other (left foot wound with wound vac and right foot wound) Psych/Mental Status: Mental status NL, Mood NL MUSCULOSKELETAL: Osteoarthritic changes both hands VITALS/I&O VITALS/I&O: Vital Signs Date Time Temp Pulse Resp B/P (MAP) Pulse Ox O2 Delivery O2 Flow Rate FiO2 04/12/19 07:32 Nasal Cannula 3.0 04/12/19 07:00 98.1 83 14 126/54 (78) 93 98.1 I & O 04/11/19 04/11/19 04/12/19 15:00 23:00 07:00 Intake Total 120 ml 320 ml Balance 120 ml 320 ml LABS Lab: Laboratory Tests Test 04/11/19 11:22 04/11/19 16:39 04/11/19 21:00 04/12/19 02:13 Glucose (Fingerstick) 313 mg/dL (70-99) H 170 mg/dL (70-99) H 161 mg/dL (70-99) H 175 mg/dL (70-99) H Test 04/12/19 05:00 04/12/19 07:17 White Blood Count 11.0 x10^3/uL (4.0-11.0) Red Blood Count 3.92 x10^6/uL (3.50-5.40) Hemoglobin 11.3 g/dL (12.0-15.5) L Hematocrit 35.0 % (36.0-47.0) L Mean Corpuscular Volume 89 fL (79-100) Mean Corpuscular Hemoglobin 29 pg (25-35) Mean Corpuscular Hemoglobin Concent 32 g/dL (31-37) Red Cell Distribution Width 17.2 % (11.5-14.5) H Platelet Count 288 x10^3/uL (140-400) Neutrophils (%) (Auto) 73 % (31-73) Lymphocytes (%) (Auto) 14 % (24-48) L Monocytes (%) (Auto) 8 % (0-9) Eosinophils (%) (Auto) 5 % (0-3) H Basophils (%) (Auto) 1 % (0-3) Neutrophils # (Auto) 8.0 x10^3/uL (1.8-7.7) H Lymphocytes # (Auto) 1.5 x10^3/uL (1.0-4.8) Monocytes # (Auto) 0.8 x10^3/uL (0.0-1.1) Eosinophils # (Auto) 0.5 x10^3/uL (0.0-0.7) Basophils # (Auto) 0.1 x10^3/uL (0.0-0.2) Sodium Level 144 mmol/L (136-145) Potassium Level 4.7 mmol/L (3.5-5.1) # Chloride Level 108 mmol/L (98-107) H Carbon Dioxide Level 33 mmol/L (21-32) H Anion Gap 3 (6-14) L Blood Urea Nitrogen 27 mg/dL (7-20) H Creatinine 0.8 mg/dL (0.6-1.0) Estimated GFR (Cockcroft-Gault) 73.7 Glucose Level 180 mg/dL (70-99) H Calcium Level 7.9 mg/dL (8.5-10.1) L Glucose (Fingerstick) 153 mg/dL (70-99) H Laboratory Tests 04/12/19 05:00 Laboratory Tests 04/12/19 05:00 ASSESSMENT/PLAN ASSESSMENT/PLAN 1. Osteomyelitis/gangrene: S/P Left third toe metatarsal amputation POD#2 per ortho 2. HTN: controlled 3. HLP 4. Acute diastolic CHF: likely from overhydration. appears better. 5. ALISIA/hyperkalemia: prerenal. Better after lasix 6. DM2/DPN: uncontrolled A1C 9.7 7. CAD: 2 stents in 2017 at [facility]. Clinically stable. 8. Hx of TBI with subdural hematoma and craniotomy 9. CAREY: CPAP use 10. Morbid obesity Recommendations 1. TTE, check lipids and TSH and UA 2. Another dose of lasix today 3. Continue ASA. BP is currently controlled. Will clarify home BP meds and will resume as warranted. Monitor BP trend 4. Statin per lipid level 5. Antibiotic per ID. BG optimization per PCP 6. Will obtain PCI record from [facility] and arterial duplex done in [facility] 7. Follow up in our office to establish cardiology care. CONNOR TINSLEY DINNER COOK Apr 12, 2019 10:07
[2019-04-12] MEDS ORDERED: FUROSEMIDE 40 MG/4 ML VIAL. IVP ONE (10:45)
[2019-04-12 11:00] VITALS: BP 140/75
--- NOTE | 2019-04-12 11:03 | CARD ---
MR#: [id number] Date of Study: 04/12/2019 Ordering Physician: CONNOR TINSLEY, Referring Physician: CONNOR TINSLEY Tech: Killian Vitale RDCS APPROVED REPORT EXAM: Two-dimensional and M-mode echocardiogram with Doppler and color Doppler. Other Information Quality : PoorHR: 80bpm INDICATION Congestive Heart Failure Echo Enhancing Agent Indication: Endocardial border delineation Agent/Amount Used: Optison 2mL RISK FACTORS Hypertension Obesity Hyperlipidemia Diabetes 2D DIMENSIONS RVDd3.6 (2.9-3.5cm)Left Atrium(2D)4.0 (1.6-4.0cm) IVSd1.4 (0.7-1.1cm)Aortic Root(2D)3.0 (2.0-3.7cm) LVDd4.1 (3.9-5.9cm)LVOT Diameter1.9 (1.8-2.4cm) PWd1.6 (0.7-1.1cm)LVDs2.9 (2.5-4.0cm) FS (%) 29.6 %SV43.4 ml LVEF(%)57.0 (>50%) Aortic Valve AoV Peak Manolo.168.0cm/sAoV VTI33.7cm AO Peak GR.11.3mmHgLVOT Peak Manolo.133.3cm/s AO Mean GR.6mmHgAVA (VMAX)2.36cm2 Mitral Valve MV E Rhiawgbl060.8cm/sMV DECEL [id number] MV A Aylamdtp726.5cm/sE/A Ratio1.3 MV A Vityjqcr328me Pulmonary Valve PV Peak Bnxpfzyy697.5cm/s Tricuspid Valve TR P. Qzckdgfo130nx/sTR Peak Gr.35mmHg Pulmonary Vein S1 Vwivuzti149.3cm/sD2 Zhpjtqao17.6cm/s LEFT VENTRICLE The left ventricle is normal size. There is mild to moderate concentric left ventricular hypertrophy. The left ventricular systolic function is normal. The ejection fraction is 55-60%. There is normal L V segmental wall motion. Transmitral Doppler flow pattern is Grade II-pseudonormal filling dynamics. RIGHT VENTRICLE The right ventricle is normal size. There is normal right ventricular wall thickness. The right ventr icular systolic function is normal. ATRIA The left atrium size is normal. The right atrium is mildly dilated. The interatrial septum is intact with no evidence for an atrial septal defect or patent foramen ovale as noted on 2-D or Doppler imagi ng. AORTIC VALVE The aortic valve is calcified but opens well. Doppler and Color Flow revealed no significant aortic r egurgitation. There is no significant aortic valvular stenosis. MITRAL VALVE The mitral valve is normal in structure and function. Doppler and Color-flow revealed trace mitral re gurgitation. TRICUSPID VALVE The tricuspid valve is normal in structure and function. Doppler and Color Flow revealed mild tricusp id regurgitation. Estimated PAP 50 mmHg. PULMONIC VALVE Doppler and Color Flow revealed no pulmonic valvular regurgitation. GREAT VESSELS The aortic root is normal in size. The ascending aorta is normal in size. IVC is dialated and unrespo nsive. PERICARDIAL EFFUSION There is no evidence of significant pericardial effusion. Critical Notification Critical Value: No <Conclusion> The left ventricular systolic function is normal. The ejection fraction is 55-60%. There is normal LV segmental wall motion. Transmitral Doppler flow pattern is Grade II-pseudonormal filling dynamics. Trace mitral regurgitation. Mild tricuspid regurgitation. Estimated PAP 50 mmHg. There is no evidence of significant pericardial effusion. Signed by : Carlos Cole, Electronically Approved : 04/12/2019 11:02:33
[2019-04-12 11:33] LABS: CHOLESTEROL/HDL RATIO 6.1
[2019-04-12 11:36] LABS: BILIRUBIN,URINE NEGATIVE (NEG); CLARITY,URINE CLEAR; COLOR,URINE YELLOW; NITRITE,URINE NEGATIVE (NEG); PROTEIN,URINE NEGATIVE (NEG-TRACE); UROBILINOGEN,URINE 0.2 mg/dL (0.2 mg/dL)
[2019-04-12 11:56] LABS: SQUAMOUS EPITHELIAL CELL,UR MOD /LPF
[2019-04-12 11:57] LABS: BACTERIA,URINE FEW /HPF (0-FEW); RBC,URINE 20-40 /HPF (0-2)
--- NOTE | 2019-04-12 13:01 | PDOC2 ---
CONSULT Date of Consult Date of Consult DATE: 04/12/19 TIME: 12:44 Reason for Consult Reason for Consult: ALISIA Source Source: Patient History of Present Illness Reason for Visit: Pt is a 58-year-old female with history of diabetes and history of previous toe infections. She has recently moved from just outside [place], [place] to [place]. She states she has been on amoxicillin and clindamycin for approximately 4 months despite this, her left third toe had become worsened -it darkened in color and developed a strong odor. She has some subjective chills, some fevers. Denies anynausea , vomiting or diarrhea at home. She states she did have some nausea at the hospital . She reports she was Dx with lymphedema in fall and takes Lasix 20 mf PO BID and Metolazone prn - very rarely , last approx 1 month back She also takes Aleve 1 tab every couple of days . Currently denies any CP, SOB. No urinary complaints Past Medical History Cardiovascular: CAD, HTN, Hyperlipidemia Pulmonary: Other (CAREY with CPAP) CENTRAL NERVOUS SYSTEM: Other (TBI with x4 concussion and subdural hematoma) GI: GERD Heme/Onc: No pertinent hx, Other (iatrogenic pancreatitis from tegretol) Hepatobiliary: No pertinent hx Psych: Anxiety Musculoskeletal: Osteoarthritis Rheumatologic: No pertinent hx Infectious disease: No pertinent hx, Other (osteomyelitis) ENT: No pertinent hx Renal/: No pertinent hx Endocrine: Diabetes (2) Dermatology: Other (left foot wound and right foot wound) Past Surgical History Past Surgical History: Appendectomy, Cholecystectomy, (x2), Other (craniotomy) Family History Family History: Diabetes, Heart Disease, Other (mothers side,with cerebral aneurysm) Social History No ALCOHOL: occassional Drugs: None Lives: Alone Current Medications Current Medications Current Medications Vancomycin HCl (Vanco Per Pharmacy) 1 each PRN DAILY PRN MC SEE COMMENTS Last administered on 04/10/19at 03:41; Start 04/09/19 at 22:30; Stop 04/10/19 at 12:36; Status DC Piperacillin Sod/ Tazobactam Sod (Zosyn Per Pharmacy) 1 each PRN DAILY PRN MC SEE COMMENTS; Start 04/09/19 at 22:30; Stop 04/10/19 at 12:35; Status DC Sodium Chloride 1,000 ml @ 100 mls/hr Q10H IV Last administered on 04/11/19at 05:23; Start 04/09/19 at 23:00; Stop 04/11/19 at 09:26; Status DC Acetaminophen/ Hydrocodone Bitart (Lortab 5/325) 1 tab PRN Q4HRS PRN PO MODERATE PAIN 4-6; Start 04/09/19 at 22:30 Acetaminophen/ Hydrocodone Bitart (Lortab 5/325) 2 tab PRN Q4HRS PRN PO SEVERE PAIN 7-10 Last administered on 04/12/19at 04:17; Start 04/09/19 at 22:30 Insulin Glargine (Lantus Syringe) 70 unit QHS SQ Last administered on 04/11/19at 21:14; Start 04/09/19 at 23:00 Insulin Human Lispro (HumaLOG) 20 units 1X ONCE SQ Last administered on 04/09/19at 23:02; Start 04/09/19 at 23:00; Stop 04/09/19 at 23:01; Status DC Insulin Human Lispro (HumaLOG) 0-7 UNITS TIDWMEALS SQ ; Start 04/10/19 at 08:00; Stop 04/10/19 at 08:08; Status DC Dextrose (Dextrose 50%-Water Syringe) 12.5 gm PRN Q15MIN PRN IV SEE COMMENTS; Start 04/09/19 at 22:30; Status Cancel Dextrose 250 ml PRN Q15MIN PRN IV SEE COMMENTS; Start 04/09/19 at 22:30; Status Cancel Insulin Human Lispro (HumaLOG) 26 units TIDAC SQ Last administered on 04/11/19at 17:16; Start 04/10/19 at 07:30 Piperacillin Sod/ Tazobactam Sod 3.375 gm/Sodium Chloride 50 ml @ 100 mls/hr Q6HRS IV Last administered on 04/10/19at 11:35; Start 04/10/19 at 00:00; Stop 04/10/19 at 12:35; Status DC Gabapentin (Neurontin) 900 mg [id number] PO Last administered on 04/12/19at 08:27; Start 04/10/19 at 09:00 Gabapentin (Neurontin) 1,200 mg HS PO Last administered on 04/11/19at 21:01; Start 04/10/19 at 21:00 Atenolol (Tenormin) 40 mg DAILY PO ; Start 04/10/19 at 09:00; Status UNV Vancomycin HCl 2 gm/Sodium Chloride 500 ml @ 250 mls/hr Q12H IV Last administered on 04/10/19at 05:20; Start 04/10/19 at 05:00; Stop 04/10/19 at 12:36; Status DC Vancomycin HCl (Vancomycin Trough Level) 1 each 1X ONCE MC ; Start 04/11/19 at 04:30; Stop 04/11/19 at 04:31; Status Cancel Insulin Human Lispro (HumaLOG) 0-9 UNITS TIDWMEALS SQ Last administered on 04/12/19at 08:27; Start 04/10/19 at 12:00 Dextrose (Dextrose 50%-Water Syringe) 12.5 gm PRN Q15MIN PRN IV SEE COMMENTS; Start 04/10/19 at 08:15 Dextrose 250 ml PRN Q15MIN PRN IV SEE COMMENTS; Start 04/10/19 at 08:15 Acetaminophen (Tylenol) 500 mg PRN Q6HRS PRN PO MILD PAIN / TEMP; Start 04/10/19 at 08:15 Ondansetron HCl (Zofran) 4 mg PRN Q6HRS PRN IV NAUSEA/VOMITING; Start 04/10/19 at 08:15 Fentanyl Citrate (Fentanyl 2ml Vial) 50 mcg PRN Q2HR PRN IV PAIN Last administered on 04/11/19at 15:31; Start 04/10/19 at 08:15 Sodium Chloride ([place] Saline Nasal) 1 nadeem PRN Q2HRS PRN NS NASAL CONGESTION Last administered on 04/10/19at 15:54; Start 04/10/19 at 11:45 Fluconazole/ Sodium Chloride 100 ml @ 100 mls/hr Q24H IV Last administered on 04/11/19at 15:31; Start 04/10/19 at 13:00 Meropenem 1 gm/ Sodium Chloride 100 ml @ 200 mls/hr Q8HRS IV Last administered on 04/12/19at 06:31; Start 04/10/19 at 14:00 Daptomycin 900 mg/ Sodium Chloride 50 ml @ 100 mls/hr Q24H IV Last administered on 04/11/19at 13:14; Start 04/10/19 at 13:00 Fentanyl Citrate (Fentanyl 2ml Vial) 25 mcg PRN Q5MIN PRN IV MILD PAIN 1-3; Start 04/10/19 at 13:15; Stop 04/11/19 at 11:49; Status DC Fentanyl Citrate (Fentanyl 2ml Vial) 50 mcg PRN Q5MIN PRN IV MODERATE TO SEVERE PAIN; Start 04/10/19 at 13:15; Stop 04/11/19 at 11:49; Status DC Morphine Sulfate (Morphine Sulfate) 1 mg PRN Q10MIN PRN IV SEVERE PAIN 7-10; Start 04/10/19 at 13:15; Stop 04/11/19 at 11:50; Status DC Ringer's Solution 1,000 ml @ 30 mls/hr Q24H IV ; Start 04/10/19 at 13:14; Stop 04/11/19 at 01:13; Status DC Hydromorphone HCl (Dilaudid) 0.5 mg PRN Q10MIN PRN IV SEV PAIN, Second choice; Start 04/10/19 at 13:15; Stop 04/11/19 at 11:50; Status DC Prochlorperazine Edisylate (Compazine) 5 mg PACU PRN PRN IV NAUSEA, MRX1; Start 04/10/19 at 13:15; Stop 04/11/19 at 11:50; Status DC Fentanyl Citrate (Fentanyl 2ml Vial) 100 mcg STK-MED ONCE .ROUTE ; Start 04/10/19 at 13:20; Stop 04/10/19 at 13:21; Status DC Sevoflurane (Ultane) 30 ml STK-MED ONCE IH ; Start 04/10/19 at 13:20; Stop 04/10/19 at 13:21; Status DC Propofol 20 ml @ As Directed STK-MED ONCE IV ; Start 04/10/19 at 13:20; Stop 04/10/19 at 13:21; Status DC Dexamethasone Sodium Phosphate (Decadron) 4 mg STK-MED ONCE .ROUTE ; Start 04/10/19 at 13:21; Stop 04/10/19 at 13:21; Status DC Lidocaine HCl (Lidocaine Pf 2% Vial) 5 ml STK-MED ONCE .ROUTE ; Start 04/10/19 at 13:21; Stop 04/10/19 at 13:21; Status DC Ondansetron HCl (Zofran) 4 mg STK-MED ONCE .ROUTE ; Start 04/10/19 at 13:21; Stop 04/10/19 at 13:21; Status DC Phenylephrine HCl (PHENYLEPHRINE in 0.9% NACL PF) 1 mg STK-MED ONCE IV ; Start 04/10/19 at 14:27; Stop 04/10/19 at 14:27; Status DC Aspirin (Ecotrin) 325 mg QHS PO Last administered on 04/11/19at 21:01; Start 04/10/19 at 21:00 Oxycodone/ Acetaminophen (Percocet 5/325) 1 tab PRN Q4HRS PRN PO MODERATE PAIN, LAST OPTION; Start 04/10/19 at 15:15 Oxycodone/ Acetaminophen (Percocet 5/325) 2 tab PRN Q4HRS PRN PO SEVERE PAIN, LAST OPTION Last administered on 04/10/19at 15:54; Start 04/10/19 at 15:30 Insulin Glargine (Lantus Syringe) 30 unit DAILY SQ Last administered on 04/12/19at 08:27; Start 04/11/19 at 09:00 Sodium Polystyrene Sulfonate (Kayexalate) 15 gm 1X ONCE PO Last administered on 04/11/19at 10:24; Start 04/11/19 at 09:00; Stop 04/11/19 at 09:01; Status DC Meclizine HCl (Antivert) 12.5 mg PRN Q6HRS PRN PO DIZZINESS Last administered on 04/11/19at 10:24; Start 04/11/19 at 09:30 Albuterol Sulfate (Ventolin Neb Soln) 2.5 mg PRN Q4HRS PRN NEB SHORTNESS OF BREATH; Start 04/11/19 at 10:45 Albuterol Sulfate (Ventolin Neb Soln) 2.5 mg 1X ONCE NEB Last administered on 04/11/19at 11:54; Start 04/11/19 at 11:00; Stop 04/11/19 at 11:01; Status DC Lactobacillus Rhamnosus (Culturelle) 1 cap BID PO Last administered on 04/12/19at 08:27; Start 04/11/19 at 12:00 Furosemide (Lasix) 40 mg 1X ONCE IVP Last administered on 04/11/19at 20:18; Start 04/11/19 at 19:00; Stop 04/11/19 at 19:01; Status DC Perflutren Protein Type A Microsphe (Optison) 0.66 mg 1X ONCE IV ; Start 04/12/19 at 10:00; Stop 04/12/19 at 10:01; Status DC Furosemide (Lasix) 40 mg 1X ONCE IVP Last administered on 04/12/19at 11:44; Start 04/12/19 at 10:45; Stop 04/12/19 at 10:49; Status DC Allergies Allergies: Coded Allergies: cephalexin (Verified Allergy, Severe, Anaphylaxis, 04/09/19) tongue swells and throat closes, per patient iodine (Verified Allergy, Severe, 04/09/19) ROS Review of System Per HPI Physical Exam Physical Exam GENERAL: morbidly obese, NAD HEENT: OM moist NECK: Supple, thick LUNGS: Clear to auscultation bilaterally, decreased at bases, No accessory muscle use HEART: RRR ABDOMEN: Morbidly obese, soft, nontender, EXTREMITIES: Left third toe gangrenous with purulent material,Chronic lymphedema NEUROLOGIC: Grossly Normal PSYCHIATRIC: Affect is appropriate No Trejo, No CVA or SP tenderness Vital Signs Vital Signs Date Time Temp Pulse Resp B/P (MAP) Pulse Ox O2 Delivery O2 Flow Rate FiO2 04/12/19 11:00 98.5 84 16 140/75 (96) 97 Nasal Cannula 3.0 98.5 Assessment & Plan ALISIA- Pre-renal Resolved, Renal function back to baseline Hx of NSAID use , DM Supportive care, Strict I/O, avoid Nephrotoxins and NSAID's, Monitor 3 rd toe osteomyelitis -On Abx per ID Hyperkalemia- Resolved Microscopic hematuria +-? Non Trejo sample Could be sec to DM as well but No overt Proteinuria, Few WBC's +, if UTI ruled out recommend consult Urology, defer to primary DM- per primary HTN - antihypertensives Labs Labs Laboratory Tests Test 04/10/19 15:07 04/10/19 16:55 04/10/19 20:25 04/11/19 05:45 Glucose (Fingerstick) 203 mg/dL (70-99) 242 mg/dL (70-99) 328 mg/dL (70-99) White Blood Count 12.7 x10^3/uL (4.0-11.0) Red Blood Count 4.22 x10^6/uL (3.50-5.40) Hemoglobin 12.2 g/dL (12.0-15.5) Hematocrit 37.9 % (36.0-47.0) Mean Corpuscular Volume 90 fL (79-100) Mean Corpuscular Hemoglobin 29 pg (25-35) Mean Corpuscular Hemoglobin Concent 32 g/dL (31-37) Red Cell Distribution Width 17.5 % (11.5-14.5) Platelet Count 317 x10^3/uL (140-400) Neutrophils (%) (Auto) 88 % (31-73) Lymphocytes (%) (Auto) 6 % (24-48) Monocytes (%) (Auto) 5 % (0-9) Eosinophils (%) (Auto) 1 % (0-3) Basophils (%) (Auto) 0 % (0-3) Neutrophils # (Auto) 11.2 x10^3/uL (1.8-7.7) Lymphocytes # (Auto) 0.8 x10^3/uL (1.0-4.8) Monocytes # (Auto) 0.7 x10^3/uL (0.0-1.1) Eosinophils # (Auto) 0.1 x10^3/uL (0.0-0.7) Basophils # (Auto) 0.0 x10^3/uL (0.0-0.2) Segmented Neutrophils % 87 % (35-66) Band Neutrophils % 6 % (0-9) Lymphocytes % 3 % (24-48) Monocytes % 4 % (0-10) Platelet Estimate Adequate (ADEQUATE) Anisocytosis Slight Sodium Level 139 mmol/L (136-145) Potassium Level 5.8 mmol/L (3.5-5.1) Chloride Level 103 mmol/L (98-107) Carbon Dioxide Level 29 mmol/L (21-32) Anion Gap 7 (6-14) Blood Urea Nitrogen 29 mg/dL (7-20) Creatinine 1.3 mg/dL (0.6-1.0) Estimated GFR (Cockcroft-Gault) 42.1 Glucose Level 344 mg/dL (70-99) Calcium Level 8.1 mg/dL (8.5-10.1) Test 04/11/19 07:26 04/11/19 11:22 04/11/19 16:39 04/11/19 21:00 Glucose (Fingerstick) 327 mg/dL (70-99) 313 mg/dL (70-99) 170 mg/dL (70-99) 161 mg/dL (70-99) Test 04/12/19 02:13 04/12/19 05:00 04/12/19 07:17 04/12/19 11:00 Glucose (Fingerstick) 175 mg/dL (70-99) 153 mg/dL (70-99) White Blood Count 11.0 x10^3/uL (4.0-11.0) Red Blood Count 3.92 x10^6/uL (3.50-5.40) Hemoglobin 11.3 g/dL (12.0-15.5) Hematocrit 35.0 % (36.0-47.0) Mean Corpuscular Volume 89 fL (79-100) Mean Corpuscular Hemoglobin 29 pg (25-35) Mean Corpuscular Hemoglobin Concent 32 g/dL (31-37) Red Cell Distribution Width 17.2 % (11.5-14.5) Platelet Count 288 x10^3/uL (140-400) Neutrophils (%) (Auto) 73 % (31-73) Lymphocytes (%) (Auto) 14 % (24-48) Monocytes (%) (Auto) 8 % (0-9) Eosinophils (%) (Auto) 5 % (0-3) Basophils (%) (Auto) 1 % (0-3) Neutrophils # (Auto) 8.0 x10^3/uL (1.8-7.7) Lymphocytes # (Auto) 1.5 x10^3/uL (1.0-4.8) Monocytes # (Auto) 0.8 x10^3/uL (0.0-1.1) Eosinophils # (Auto) 0.5 x10^3/uL (0.0-0.7) Basophils # (Auto) 0.1 x10^3/uL (0.0-0.2) Sodium Level 144 mmol/L (136-145) Potassium Level 4.7 mmol/L (3.5-5.1) Chloride Level 108 mmol/L (98-107) Carbon Dioxide Level 33 mmol/L (21-32) Anion Gap 3 (6-14) Blood Urea Nitrogen 27 mg/dL (7-20) Creatinine 0.8 mg/dL (0.6-1.0) Estimated GFR (Cockcroft-Gault) 73.7 Glucose Level 180 mg/dL (70-99) Calcium Level 7.9 mg/dL (8.5-10.1) Triglycerides Level 224 mg/dL (0-150) Cholesterol Level 152 mg/dL (0-200) LDL Cholesterol, Calculated 82 mg/dL (0-100) VLDL Cholesterol, Calculated 45 mg/dL (0-40) Non-HDL Cholesterol Calculated 127 mg/dL (0-129) HDL Cholesterol 25 mg/dL (40-60) Cholesterol/HDL Ratio 6.1 Thyroid Stimulating Hormone (TSH) 0.730 uIU/mL (0.358-3.74) Urine Collection Type Unknown Urine Color Yellow Urine Clarity Clear Urine pH 6.0 Urine Specific [place] 1.020 Urine Protein Negative mg/dL (NEG-TRACE) Urine Glucose (UA) Negative mg/dL (NEG) Urine Ketones (Stick) Negative mg/dL (NEG) Urine Blood Moderate (NEG) Urine Nitrite Negative (NEG) Urine Bilirubin Negative (NEG) Urine Urobilinogen Dipstick 0.2 mg/dL (0.2 mg/dL) Urine Leukocyte Esterase Small (NEG) Urine RBC 20-40 /HPF (0-2) Urine WBC 5-10 /HPF (0-4) Urine Squamous Epithelial Cells Mod /LPF Urine Bacteria Few /HPF (0-FEW) Laboratory Tests Test 04/11/19 16:39 04/11/19 21:00 04/12/19 02:13 04/12/19 05:00 Glucose (Fingerstick) 170 mg/dL (70-99) 161 mg/dL (70-99) 175 mg/dL (70-99) White Blood Count 11.0 x10^3/uL (4.0-11.0) Red Blood Count 3.92 x10^6/uL (3.50-5.40) Hemoglobin 11.3 g/dL (12.0-15.5) Hematocrit 35.0 % (36.0-47.0) Mean Corpuscular Volume 89 fL (79-100) Mean Corpuscular Hemoglobin 29 pg (25-35) Mean Corpuscular Hemoglobin Concent 32 g/dL (31-37) Red Cell Distribution Width 17.2 % (11.5-14.5) Platelet Count 288 x10^3/uL (140-400) Neutrophils (%) (Auto) 73 % (31-73) Lymphocytes (%) (Auto) 14 % (24-48) Monocytes (%) (Auto) 8 % (0-9) Eosinophils (%) (Auto) 5 % (0-3) Basophils (%) (Auto) 1 % (0-3) Neutrophils # (Auto) 8.0 x10^3/uL (1.8-7.7) Lymphocytes # (Auto) 1.5 x10^3/uL (1.0-4.8) Monocytes # (Auto) 0.8 x10^3/uL (0.0-1.1) Eosinophils # (Auto) 0.5 x10^3/uL (0.0-0.7) Basophils # (Auto) 0.1 x10^3/uL (0.0-0.2) Sodium Level 144 mmol/L (136-145) Potassium Level 4.7 mmol/L (3.5-5.1) Chloride Level 108 mmol/L (98-107) Carbon Dioxide Level 33 mmol/L (21-32) Anion Gap 3 (6-14) Blood Urea Nitrogen 27 mg/dL (7-20) Creatinine 0.8 mg/dL (0.6-1.0) Estimated GFR (Cockcroft-Gault) 73.7 Glucose Level 180 mg/dL (70-99) Calcium Level 7.9 mg/dL (8.5-10.1) Triglycerides Level 224 mg/dL (0-150) Cholesterol Level 152 mg/dL (0-200) LDL Cholesterol, Calculated 82 mg/dL (0-100) VLDL Cholesterol, Calculated 45 mg/dL (0-40) Non-HDL Cholesterol Calculated 127 mg/dL (0-129) HDL Cholesterol 25 mg/dL (40-60) Cholesterol/HDL Ratio 6.1 Thyroid Stimulating Hormone (TSH) 0.730 uIU/mL (0.358-3.74) Test 04/12/19 07:17 04/12/19 11:00 Glucose (Fingerstick) 153 mg/dL (70-99) Urine Collection Type Unknown Urine Color Yellow Urine Clarity Clear Urine pH 6.0 Urine Specific [place] 1.020 Urine Protein Negative mg/dL (NEG-TRACE) Urine Glucose (UA) Negative mg/dL (NEG) Urine Ketones (Stick) Negative mg/dL (NEG) Urine Blood Moderate (NEG) Urine Nitrite Negative (NEG) Urine Bilirubin Negative (NEG) Urine Urobilinogen Dipstick 0.2 mg/dL (0.2 mg/dL) Urine Leukocyte Esterase Small (NEG) Urine RBC 20-40 /HPF (0-2) Urine WBC 5-10 /HPF (0-4) Urine Squamous Epithelial Cells Mod /LPF Urine Bacteria Few /HPF (0-FEW) Review All relevant outside records, renal labs, imaging studies, telemetry/EKG's were reviewed. SANDOR LEE MD Apr 12, 2019 13:01
[2019-04-12] MEDS: NORMAL SALINE IV SCH (14:10)
[2019-04-12] MEDS: DAPTOMYCIN IV SCH (14:10)
[2019-04-12 15:00] VITALS: BP 153/74
[2019-04-12] MEDS: FLUCONAZOLE 200MG/100ML PREMIX 100 ML IV SCH (15:29)
[2019-04-12 19:00] VITALS: BP 153/53
[2019-04-12] MEDS: ASPIRIN ENTERIC COATED 325 MG TABLET.DR. PO SCH (20:47)
[2019-04-12] MEDS: GABAPENTIN 400 MG CAPSULE. PO SCH (20:51)
[2019-04-12 23:00] VITALS: BP 113/43
[2019-04-13 03:00] VITALS: BP 114/51
[2019-04-13] MEDS: HYDROcodone/APAP 5/325MG 1 TAB TABLET PO PRN ×2 (05:09→10:45)
[2019-04-13 05:17] LABS: BASO % 0 % (0-3); EOS # 0.4 x10^3/uL (0.0-0.7); EOS % 6 % (0-3); HEMATOCRIT 35.4 % (36.0-47.0); HEMOGLOBIN 11.4 g/dL (12.0-15.5); LYMPH # 1.6 x10^3/uL (1.0-4.8); LYMPH % 20 % (24-48); MEAN CORPUSCULAR HEMOGLOBIN 29 pg (25-35); MEAN CORPUSCULAR HGB CONC 32 g/dL (31-37); MEAN CORPUSCULAR VOLUME 90 fL (79-100); MONO # 0.7 x10^3/uL (0.0-1.1); MONO % 9 % (0-9); NEUT # 5.1 x10^3/uL (1.8-7.7); NEUT % 65 % (31-73); PLATELET COUNT 297 x10^3/uL (140-400); RED BLOOD COUNT 3.95 x10^6/uL (3.50-5.40); RED CELL DISTRIBUTION WIDTH 17.7 % (11.5-14.5); WHITE BLOOD COUNT 7.9 x10^3/uL (4.0-11.0)
[2019-04-13 05:57] LABS: ALBUMIN/GLOBULIN RATIO 0.4 (1.0-1.7); CALCIUM 8.6 mg/dL (8.5-10.1); CREATININE 0.6 mg/dL (0.6-1.0); GFR 102.7; POTASSIUM 4.6 mmol/L (3.5-5.1); TOTAL BILIRUBIN 0.3 mg/dL (0.2-1.0); TOTAL PROTEIN 6.5 g/dL (6.4-8.2)
[2019-04-13] MEDS: MEROPENEM 1 GM in IV NORMAL SALINE 100ML 100 ML IV SCH ×3 (06:03→21:59)
[2019-04-13 07:00] VITALS: BP 155/74
[2019-04-13] MEDS: INSULIN LISPRO 300 UNITS/3 ML VIAL. SQ SCH ×6 (07:30→17:35)
[2019-04-13] MEDS: GABAPENTIN 300 MG CAPSULE. PO SCH ×2 (09:17→13:36)
[2019-04-13] MEDS: LACTOBACILLUS RHAMNOSUS GG 1 CAPSULE. PO SCH ×2 (09:17→20:40)
[2019-04-13] MEDS: INSULIN GLARGINE SYRINGE. SQ SCH ×2 (09:22→20:44)
--- NOTE | 2019-04-13 10:09 | PDOC ---
PROGRESS NOTES Chief Complaint Chief Complaint impression 1. LEft THIRD TOE Gangrene -s/p amputation 04/10 (POD # 2) 2. RT heel ulcer - wound care 3. OSteomyelitis - as per benson xray - 4. DM with hgba1c 9.7 and neuropathy and target organ damage - hx osteo, partial amputation big toe 5. Obesity 6. HTN - controlled 7,. Lymphedema 8. POst op confusion, transient 9, POst op mild hyperkalemia 5.5 10. Post op ALISIA, VMN 11. developing congestive heart failure with diffuse pulmonary edema. Underlying infiltrate in the left lung base cannot excluded. 12. Left rotator cuff calcific tendinopathy. 13. severe protein-caloric malnutrition 14 PULMONARY HYPERTENSION cardiology FOLLOWING echo cont fluconazole/Meropenem/Dapto To OR tomorrow 04/14 -DR AGUAYO - 38 min pt exam, chart review, > 50% of time spent with exam, chart review, pt care coordination History of Present Illness History of Present Illness POD # 1 - some transient confusion last night- she thought she was in a hotel BS high! 300s HGba1c 9.7 WBC 12,7 ESR 105, platelets 317 hgb 12 K 5,5, creat 1,3 from 0.9 - on lasix 20 BID at home ALso requests her meclizine ON hefty doses insulin 27 units mealtimes and 70 qhs PLAN: STart lantus 25 qdaily first dose now AWAIT wound care re that RT heel ulcer and toe wound POst op care/labs PT.OT Self pay? IV abx per ID NO IVF for now re that creat kayexylate 15 x 1 re K 5.5 REcheck BMP tmr - if creat worse, then she agreed to IVF - she did not want to start iVF - afraid of lymphedema OK for home meclizine no lasix for now Vitals Vitals Vital Signs Date Time Temp Pulse Resp B/P (MAP) Pulse Ox O2 Delivery O2 Flow Rate FiO2 04/13/19 07:00 97.7 81 16 155/74 (101) 94 Nasal Cannula 3.0 97.7 Physical Exam Physical Exam CONSTITUTIONAL: She is sitting up on the commode She is morbidly obese. She is cooperative. She is in no acute distress. Looks much better HEENT: Pupils are equal and reactive. She has normal conjunctivae. Oral cavity, pharynx is clear. NECK: Supple, no JVD. LUNGS: Clear to auscultation bilaterally. Wa son CPAP HEART: S1, S2. ABDOMEN: Morbidly obese, soft, nontender, no guarding or rebound. EXTREMITIES: Without clubbing, cyanosis. Left foot vac in place. Right great toe plantar wound - dressed. She has a mild right heel ulcer as well. SKIN: Skin is warm to touch without signs of rash. She has some yeast in her folds, also some yeast on her lower extremities. NEUROLOGIC: She is nonfocal, moves all extremities, answers questions. PSYCHIATRIC: Affect is appropriate IV: PICC RUE - clean General: Alert, Oriented X3, Cooperative, No acute distress, mild distress Heart: Regular rate, Normal S1, Normal S2, No murmurs Lungs: Clear Abdomen: Normal bowel sounds, Soft, No tenderness Extremities: No clubbing, No cyanosis, Other (left leg dressing, rt leg dressing, amputated toe wound vac) Skin: Other (left foot wound with wound vac and right foot wound) Labs LABS CE: FOOT ENTR: 04/11/19-[address]: EWELINA GUZMAN III DO SPDESC: LEFT NO PCP SUSANA AGUAYO MD ORDERED: ANAER/AEROB/GS COMMENTS: LEFT FOOT Procedure Result ANAEROBIC-AEROBIC CULTURE PENDING ANAEROBIC RES 1 PENDING AEROBIC CULT PENDING AEROBIC RES 1 PENDING GRAM STAIN Final Final report GRAM STAIN RES 1 Final Comment No white blood cells seen. GRAM STAIN RES 2 Final No organisms seen Performed at: DA - [facility] [place] [id number], [place], [place] [id number] [employer] Machine Operator: TATIANA Rodriguez MD, Phone: [phone] APPROVED REPORT EXAM: Two-dimensional and M-mode echocardiogram with Doppler and color Doppler. Other Information Quality : Poor HR: 80bpm INDICATION Congestive Heart Failure Echo Enhancing Agent Indication: Endocardial border delineation Agent/Amount Used: Optison 2mL RISK FACTORS Hypertension Obesity Hyperlipidemia Diabetes 2D DIMENSIONS RVDd 3.6 (2.9-3.5cm) Left Atrium(2D) 4.0 (1.6-4.0cm) IVSd 1.4 (0.7-1.1cm) Aortic Root(2D) 3.0 (2.0-3.7cm) LVDd 4.1 (3.9-5.9cm) LVOT Diameter 1.9 (1.8-2.4cm) PWd 1.6 (0.7-1.1cm) LVDs 2.9 (2.5-4.0cm) FS (%) 29.6 % SV 43.4 ml LVEF(%) 57.0 (>50%) Aortic Valve AoV Peak Manolo. 168.0cm/s AoV VTI 33.7cm AO Peak GR. 11.3mmHg LVOT Peak Manolo. 133.3cm/s AO Mean GR. 6mmHg ARIELA (VMAX) 2.36cm2 Mitral Valve MV E Velocity 132.8cm/s MV DECEL TIME 279ms MV A Velocity 104.5cm/s E/A Ratio 1.3 MV A Duration 161ms Pulmonary Valve PV Peak Velocity 110.5cm/s Tricuspid Valve TR P. Velocity 295cm/s TR Peak Gr. 35mmHg Pulmonary Vein S1 Velocity 148.3cm/s D2 Velocity 48.6cm/s LEFT VENTRICLE The left ventricle is normal size. There is mild to moderate concentric left ventricular hypertrophy. The left ventricular systolic function is normal. The ejection fraction is 55-60%. There is normal LV segmental wall motion. Transmitral Doppler flow pattern is Grade II-pseudonormal filling dynamics. RIGHT VENTRICLE The right ventricle is normal size. There is normal right ventricular wall thickness. The right ventricular systolic function is normal. ATRIA The left atrium size is normal. The right atrium is mildly dilated. The int eratrial septum is intact with no evidence for an atrial septal defect or patent foramen ovale as noted on 2-D or Doppler imaging. AORTIC VALVE The aortic valve is calcified but opens well. Doppler and Color Flow revealed no significant aortic regurgitation. There is no significant aortic valvular stenosis. MITRAL VALVE The mitral valve is normal in structure and function. Doppler and Color-flow revealed trace mitral regurgitation. TRICUSPID VALVE The tricuspid valve is normal in structure and function. Doppler and Color Flow revealed mild tricuspid regurgitation. Estimated PAP 50 mmHg. PULMONIC VALVE Doppler and Color Flow revealed no pulmonic valvular regurgitation. GREAT VESSELS The aortic root is normal in size. The ascending aorta is normal in size. IVC is dialated and unresponsive. PERICARDIAL EFFUSION There is no evidence of significant pericardial effusion. Critical Notification Critical Value: No <Conclusion> The left ventricular systolic function is normal. The ejection fraction is 55-60%. There is normal LV segmental wall motion. Transmitral Doppler flow pattern is Grade II-pseudonormal filling dynamics. Trace mitral regurgitation. Mild tricuspid regurgitation. Estimated PAP 50 mmHg. There is no evidence of significant pericardial effusion. Signed by : Sergio Collins, Electronically Approved : 04/12/2019 11:02:33 DICTATED and SIGNED BY: SERGIO COLLINS MD DATE: 04/12/19 1054 Laboratory Tests Test 04/12/19 11:00 04/12/19 11:14 04/12/19 16:46 04/12/19 20:23 Urine Collection Type Unknown Urine Color Yellow Urine Clarity Clear Urine pH 6.0 Urine Specific Bozrah 1.020 Urine Protein Negative mg/dL (NEG-TRACE) Urine Glucose (UA) Negative mg/dL (NEG) Urine Ketones (Stick) Negative mg/dL (NEG) Urine Blood Moderate (NEG) Urine Nitrite Negative (NEG) Urine Bilirubin Negative (NEG) Urine Urobilinogen Dipstick 0.2 mg/dL (0.2 mg/dL) Urine Leukocyte Esterase Small (NEG) Urine RBC 20-40 /HPF (0-2) Urine WBC 5-10 /HPF (0-4) Urine Squamous Epithelial Cells Mod /LPF Urine Bacteria Few /HPF (0-FEW) Glucose (Fingerstick) 184 mg/dL (70-99) 198 mg/dL (70-99) 194 mg/dL (70-99) Test 04/13/19 04:30 04/13/19 07:25 White Blood Count 7.9 x10^3/uL (4.0-11.0) Red Blood Count 3.95 x10^6/uL (3.50-5.40) Hemoglobin 11.4 g/dL (12.0-15.5) Hematocrit 35.4 % (36.0-47.0) Mean Corpuscular Volume 90 fL (79-100) Mean Corpuscular Hemoglobin 29 pg (25-35) Mean Corpuscular Hemoglobin Concent 32 g/dL (31-37) Red Cell Distribution Width 17.7 % (11.5-14.5) Platelet Count 297 x10^3/uL (140-400) Neutrophils (%) (Auto) 65 % (31-73) Lymphocytes (%) (Auto) 20 % (24-48) Monocytes (%) (Auto) 9 % (0-9) Eosinophils (%) (Auto) 6 % (0-3) Basophils (%) (Auto) 0 % (0-3) Neutrophils # (Auto) 5.1 x10^3/uL (1.8-7.7) Lymphocytes # (Auto) 1.6 x10^3/uL (1.0-4.8) Monocytes # (Auto) 0.7 x10^3/uL (0.0-1.1) Eosinophils # (Auto) 0.4 x10^3/uL (0.0-0.7) Basophils # (Auto) 0.0 x10^3/uL (0.0-0.2) Sodium Level 145 mmol/L (136-145) Potassium Level 4.6 mmol/L (3.5-5.1) Chloride Level 106 mmol/L (98-107) Carbon Dioxide Level 39 mmol/L (21-32) Anion Gap 0 (6-14) Blood Urea Nitrogen 19 mg/dL (7-20) Creatinine 0.6 mg/dL (0.6-1.0) Estimated GFR (Cockcroft-Gault) 102.7 BUN/Creatinine Ratio 32 (6-20) Glucose Level 118 mg/dL (70-99) Calcium Level 8.6 mg/dL (8.5-10.1) Total Bilirubin 0.3 mg/dL (0.2-1.0) Aspartate Amino Transf (AST/SGOT) 7 U/L (15-37) Alanine Aminotransferase (ALT/SGPT) 17 U/L (14-59) Alkaline Phosphatase 143 U/L (46-116) Total Protein 6.5 g/dL (6.4-8.2) Albumin 2.0 g/dL (3.4-5.0) Albumin/Globulin Ratio 0.4 (1.0-1.7) Glucose (Fingerstick) 141 mg/dL (70-99) Comment Review of Relevant I have reviewed the following items adrienne (where applicable) has been applied. Labs Laboratory Tests Test 04/11/19 11:22 04/11/19 16:39 04/11/19 21:00 04/12/19 02:13 Glucose (Fingerstick) 313 mg/dL (70-99) 170 mg/dL (70-99) 161 mg/dL (70-99) 175 mg/dL (70-99) Test 04/12/19 05:00 04/12/19 07:17 04/12/19 11:00 04/12/19 11:14 White Blood Count 11.0 x10^3/uL (4.0-11.0) Red Blood Count 3.92 x10^6/uL (3.50-5.40) Hemoglobin 11.3 g/dL (12.0-15.5) Hematocrit 35.0 % (36.0-47.0) Mean Corpuscular Volume 89 fL (79-100) Mean Corpuscular Hemoglobin 29 pg (25-35) Mean Corpuscular Hemoglobin Concent 32 g/dL (31-37) Red Cell Distribution Width 17.2 % (11.5-14.5) Platelet Count 288 x10^3/uL (140-400) Neutrophils (%) (Auto) 73 % (31-73) Lymphocytes (%) (Auto) 14 % (24-48) Monocytes (%) (Auto) 8 % (0-9) Eosinophils (%) (Auto) 5 % (0-3) Basophils (%) (Auto) 1 % (0-3) Neutrophils # (Auto) 8.0 x10^3/uL (1.8-7.7) Lymphocytes # (Auto) 1.5 x10^3/uL (1.0-4.8) Monocytes # (Auto) 0.8 x10^3/uL (0.0-1.1) Eosinophils # (Auto) 0.5 x10^3/uL (0.0-0.7) Basophils # (Auto) 0.1 x10^3/uL (0.0-0.2) Sodium Level 144 mmol/L (136-145) Potassium Level 4.7 mmol/L (3.5-5.1) Chloride Level 108 mmol/L (98-107) Carbon Dioxide Level 33 mmol/L (21-32) Anion Gap 3 (6-14) Blood Urea Nitrogen 27 mg/dL (7-20) Creatinine 0.8 mg/dL (0.6-1.0) Estimated GFR (Cockcroft-Gault) 73.7 Glucose Level 180 mg/dL (70-99) Calcium Level 7.9 mg/dL (8.5-10.1) Triglycerides Level 224 mg/dL (0-150) Cholesterol Level 152 mg/dL (0-200) LDL Cholesterol, Calculated 82 mg/dL (0-100) VLDL Cholesterol, Calculated 45 mg/dL (0-40) Non-HDL Cholesterol Calculated 127 mg/dL (0-129) HDL Cholesterol 25 mg/dL (40-60) Cholesterol/HDL Ratio 6.1 Thyroid Stimulating Hormone (TSH) 0.730 uIU/mL (0.358-3.74) Glucose (Fingerstick) 153 mg/dL (70-99) 184 mg/dL (70-99) Urine Collection Type Unknown Urine Color Yellow Urine Clarity Clear Urine pH 6.0 Urine Specific Bozrah 1.020 Urine Protein Negative mg/dL (NEG-TRACE) Urine Glucose (UA) Negative mg/dL (NEG) Urine Ketones (Stick) Negative mg/dL (NEG) Urine Blood Moderate (NEG) Urine Nitrite Negative (NEG) Urine Bilirubin Negative (NEG) Urine Urobilinogen Dipstick 0.2 mg/dL (0.2 mg/dL) Urine Leukocyte Esterase Small (NEG) Urine RBC 20-40 /HPF (0-2) Urine WBC 5-10 /HPF (0-4) Urine Squamous Epithelial Cells Mod /LPF Urine Bacteria Few /HPF (0-FEW) Test 04/12/19 16:46 04/12/19 20:23 04/13/19 04:30 04/13/19 07:25 Glucose (Fingerstick) 198 mg/dL (70-99) 194 mg/dL (70-99) 141 mg/dL (70-99) White Blood Count 7.9 x10^3/uL (4.0-11.0) Red Blood Count 3.95 x10^6/uL (3.50-5.40) Hemoglobin 11.4 g/dL (12.0-15.5) Hematocrit 35.4 % (36.0-47.0) Mean Corpuscular Volume 90 fL (79-100) Mean Corpuscular Hemoglobin 29 pg (25-35) Mean Corpuscular Hemoglobin Concent 32 g/dL (31-37) Red Cell Distribution Width 17.7 % (11.5-14.5) Platelet Count 297 x10^3/uL (140-400) Neutrophils (%) (Auto) 65 % (31-73) Lymphocytes (%) (Auto) 20 % (24-48) Monocytes (%) (Auto) 9 % (0-9) Eosinophils (%) (Auto) 6 % (0-3) Basophils (%) (Auto) 0 % (0-3) Neutrophils # (Auto) 5.1 x10^3/uL (1.8-7.7) Lymphocytes # (Auto) 1.6 x10^3/uL (1.0-4.8) Monocytes # (Auto) 0.7 x10^3/uL (0.0-1.1) Eosinophils # (Auto) 0.4 x10^3/uL (0.0-0.7) Basophils # (Auto) 0.0 x10^3/uL (0.0-0.2) Sodium Level 145 mmol/L (136-145) Potassium Level 4.6 mmol/L (3.5-5.1) Chloride Level 106 mmol/L (98-107) Carbon Dioxide Level 39 mmol/L (21-32) Anion Gap 0 (6-14) Blood Urea Nitrogen 19 mg/dL (7-20) Creatinine 0.6 mg/dL (0.6-1.0) Estimated GFR (Cockcroft-Gault) 102.7 BUN/Creatinine Ratio 32 (6-20) Glucose Level 118 mg/dL (70-99) Calcium Level 8.6 mg/dL (8.5-10.1) Total Bilirubin 0.3 mg/dL (0.2-1.0) Aspartate Amino Transf (AST/SGOT) 7 U/L (15-37) Alanine Aminotransferase (ALT/SGPT) 17 U/L (14-59) Alkaline Phosphatase 143 U/L (46-116) Total Protein 6.5 g/dL (6.4-8.2) Albumin 2.0 g/dL (3.4-5.0) Albumin/Globulin Ratio 0.4 (1.0-1.7) Laboratory Tests Test 04/12/19 11:00 04/12/19 11:14 04/12/19 16:46 04/12/19 20:23 Urine Collection Type Unknown Urine Color Yellow Urine Clarity Clear Urine pH 6.0 Urine Specific Bozrah 1.020 Urine Protein Negative mg/dL (NEG-TRACE) Urine Glucose (UA) Negative mg/dL (NEG) Urine Ketones (Stick) Negative mg/dL (NEG) Urine Blood Moderate (NEG) Urine Nitrite Negative (NEG) Urine Bilirubin Negative (NEG) Urine Urobilinogen Dipstick 0.2 mg/dL (0.2 mg/dL) Urine Leukocyte Esterase Small (NEG) Urine RBC 20-40 /HPF (0-2) Urine WBC 5-10 /HPF (0-4) Urine Squamous Epithelial Cells Mod /LPF Urine Bacteria Few /HPF (0-FEW) Glucose (Fingerstick) 184 mg/dL (70-99) 198 mg/dL (70-99) 194 mg/dL (70-99) Test 04/13/19 04:30 04/13/19 07:25 White Blood Count 7.9 x10^3/uL (4.0-11.0) Red Blood Count 3.95 x10^6/uL (3.50-5.40) Hemoglobin 11.4 g/dL (12.0-15.5) Hematocrit 35.4 % (36.0-47.0) Mean Corpuscular Volume 90 fL (79-100) Mean Corpuscular Hemoglobin 29 pg (25-35) Mean Corpuscular Hemoglobin Concent 32 g/dL (31-37) Red Cell Distribution Width 17.7 % (11.5-14.5) Platelet Count 297 x10^3/uL (140-400) Neutrophils (%) (Auto) 65 % (31-73) Lymphocytes (%) (Auto) 20 % (24-48) Monocytes (%) (Auto) 9 % (0-9) Eosinophils (%) (Auto) 6 % (0-3) Basophils (%) (Auto) 0 % (0-3) Neutrophils # (Auto) 5.1 x10^3/uL (1.8-7.7) Lymphocytes # (Auto) 1.6 x10^3/uL (1.0-4.8) Monocytes # (Auto) 0.7 x10^3/uL (0.0-1.1) Eosinophils # (Auto) 0.4 x10^3/uL (0.0-0.7) Basophils # (Auto) 0.0 x10^3/uL (0.0-0.2) Sodium Level 145 mmol/L (136-145) Potassium Level 4.6 mmol/L (3.5-5.1) Chloride Level 106 mmol/L (98-107) Carbon Dioxide Level 39 mmol/L (21-32) Anion Gap 0 (6-14) Blood Urea Nitrogen 19 mg/dL (7-20) Creatinine 0.6 mg/dL (0.6-1.0) Estimated GFR (Cockcroft-Gault) 102.7 BUN/Creatinine Ratio 32 (6-20) Glucose Level 118 mg/dL (70-99) Calcium Level 8.6 mg/dL (8.5-10.1) Total Bilirubin 0.3 mg/dL (0.2-1.0) Aspartate Amino Transf (AST/SGOT) 7 U/L (15-37) Alanine Aminotransferase (ALT/SGPT) 17 U/L (14-59) Alkaline Phosphatase 143 U/L (46-116) Total Protein 6.5 g/dL (6.4-8.2) Albumin 2.0 g/dL (3.4-5.0) Albumin/Globulin Ratio 0.4 (1.0-1.7) Glucose (Fingerstick) 141 mg/dL (70-99) Microbiology 04/11/19 Anaerobic/Aerobic Culture, Resulted Pending 04/11/19 Anaerobic Culture Result 1 (DEANNE), Resulted Pending 04/11/19 Aerobic Culture, Resulted Pending 04/11/19 Aerobic Culture Result 1 (DEANNE), Resulted Pending 04/11/19 Gram Stain - Final, Resulted 04/11/19 Gram Stain Result 1 (DEANNE) - Final, Resulted 04/11/19 Gram Stain Result 2 (DEANNE) - Final, Resulted 04/10/19 Blood Culture - Preliminary, Resulted NO GROWTH AFTER 3 DAYS Medications Current Medications Vancomycin HCl (Vanco Per Pharmacy) 1 each PRN DAILY PRN MC SEE COMMENTS Last administered on 04/10/19at 03:41; Start 04/09/19 at 22:30; Stop 04/10/19 at 12:36; Status DC Piperacillin Sod/ Tazobactam Sod (Zosyn Per Pharmacy) 1 each PRN DAILY PRN MC SEE COMMENTS; Start 04/09/19 at 22:30; Stop 04/10/19 at 12:35; Status DC Sodium Chloride 1,000 ml @ 100 mls/hr Q10H IV Last administered on 04/11/19at 05:23; Start 04/09/19 at 23:00; Stop 04/11/19 at 09:26; Status DC Acetaminophen/ Hydrocodone Bitart (Lortab 5/325) 1 tab PRN Q4HRS PRN PO MODERATE PAIN 4-6; Start 04/09/19 at 22:30 Acetaminophen/ Hydrocodone Bitart (Lortab 5/325) 2 tab PRN Q4HRS PRN PO SEVERE PAIN 7-10 Last administered on 04/13/19at 05:09; Start 04/09/19 at 22:30 Insulin Glargine (Lantus Syringe) 70 unit QHS SQ Last administered on 04/12/19at 20:59; Start 04/09/19 at 23:00 Insulin Human Lispro (HumaLOG) 20 units 1X ONCE SQ Last administered on 04/09/19at 23:02; Start 04/09/19 at 23:00; Stop 04/09/19 at 23:01; Status DC Insulin Human Lispro (HumaLOG) 0-7 UNITS TIDWMEALS SQ ; Start 04/10/19 at 08:00; Stop 04/10/19 at 08:08; Status DC Dextrose (Dextrose 50%-Water Syringe) 12.5 gm PRN Q15MIN PRN IV SEE COMMENTS; Start 04/09/19 at 22:30; Status Cancel Dextrose 250 ml PRN Q15MIN PRN IV SEE COMMENTS; Start 04/09/19 at 22:30; Status Cancel Insulin Human Lispro (HumaLOG) 26 units TIDAC SQ Last administered on 04/12/19at 17:03; Start 04/10/19 at 07:30 Piperacillin Sod/ Tazobactam Sod 3.375 gm/Sodium Chloride 50 ml @ 100 mls/hr Q6HRS IV Last administered on 04/10/19at 11:35; Start 04/10/19 at 00:00; Stop 04/10/19 at 12:35; Status DC Gabapentin (Neurontin) 900 mg [id number] PO Last administered on 04/13/19at 09:23; Start 04/10/19 at 09:00 Gabapentin (Neurontin) 1,200 mg HS PO Last administered on 04/12/19at 20:59; Start 04/10/19 at 21:00 Atenolol (Tenormin) 40 mg DAILY PO ; Start 04/10/19 at 09:00; Status UNV Vancomycin HCl 2 gm/Sodium Chloride 500 ml @ 250 mls/hr Q12H IV Last administered on 04/10/19at 05:20; Start 04/10/19 at 05:00; Stop 04/10/19 at 12:36; Status DC Vancomycin HCl (Vancomycin Trough Level) 1 each 1X ONCE MC ; Start 04/11/19 at 04:30; Stop 04/11/19 at 04:31; Status Cancel Insulin Human Lispro (HumaLOG) 0-9 UNITS TIDWMEALS SQ Last administered on 04/12/19at 08:27; Start 04/10/19 at 12:00 Dextrose (Dextrose 50%-Water Syringe) 12.5 gm PRN Q15MIN PRN IV SEE COMMENTS; Start 04/10/19 at 08:15 Dextrose 250 ml PRN Q15MIN PRN IV SEE COMMENTS; Start 04/10/19 at 08:15 Acetaminophen (Tylenol) 500 mg PRN Q6HRS PRN PO MILD PAIN / TEMP Last administered on 04/12/19at 13:04; Start 04/10/19 at 08:15 Ondansetron HCl (Zofran) 4 mg PRN Q6HRS PRN IV NAUSEA/VOMITING; Start 04/10/19 at 08:15 Fentanyl Citrate (Fentanyl 2ml Vial) 50 mcg PRN Q2HR PRN IV PAIN Last administered on 04/11/19at 15:31; Start 04/10/19 at 08:15 Sodium Chloride ([place]lin Saline Nasal) 1 nadeem PRN Q2HRS PRN NS NASAL CONGESTION Last administered on 04/10/19at 15:54; Start 04/10/19 at 11:45 Fluconazole/ Sodium Chloride 100 ml @ 100 mls/hr Q24H IV Last administered on 04/12/19at 15:29; Start 04/10/19 at 13:00 Meropenem 1 gm/ Sodium Chloride 100 ml @ 200 mls/hr Q8HRS IV Last administered on 04/13/19at 06:03; Start 04/10/19 at 14:00 Daptomycin 900 mg/ Sodium Chloride 50 ml @ 100 mls/hr Q24H IV Last administered on 04/12/19at 14:12; Start 04/10/19 at 13:00 Fentanyl Citrate (Fentanyl 2ml Vial) 25 mcg PRN Q5MIN PRN IV MILD PAIN 1-3; Start 04/10/19 at 13:15; Stop 04/11/19 at 11:49; Status DC Fentanyl Citrate (Fentanyl 2ml Vial) 50 mcg PRN Q5MIN PRN IV MODERATE TO SEVERE PAIN; Start 04/10/19 at 13:15; Stop 04/11/19 at 11:49; Status DC Morphine Sulfate (Morphine Sulfate) 1 mg PRN Q10MIN PRN IV SEVERE PAIN 7-10; Start 04/10/19 at 13:15; Stop 04/11/19 at 11:50; Status DC Ringer's Solution 1,000 ml @ 30 mls/hr Q24H IV ; Start 04/10/19 at 13:14; Stop 04/11/19 at 01:13; Status DC Hydromorphone HCl (Dilaudid) 0.5 mg PRN Q10MIN PRN IV SEV PAIN, Second choice; Start 04/10/19 at 13:15; Stop 04/11/19 at 11:50; Status DC Prochlorperazine Edisylate (Compazine) 5 mg PACU PRN PRN IV NAUSEA, MRX1; Start 04/10/19 at 13:15; Stop 04/11/19 at 11:50; Status DC Fentanyl Citrate (Fentanyl 2ml Vial) 100 mcg STK-MED ONCE .ROUTE ; Start 04/10/19 at 13:20; Stop 04/10/19 at 13:21; Status DC Sevoflurane (Ultane) 30 ml STK-MED ONCE IH ; Start 04/10/19 at 13:20; Stop 04/10/19 at 13:21; Status DC Propofol 20 ml @ As Directed STK-MED ONCE IV ; Start 04/10/19 at 13:20; Stop 04/10/19 at 13:21; Status DC Dexamethasone Sodium Phosphate (Decadron) 4 mg STK-MED ONCE .ROUTE ; Start 04/10/19 at 13:21; Stop 04/10/19 at 13:21; Status DC Lidocaine HCl (Lidocaine Pf 2% Vial) 5 ml STK-MED ONCE .ROUTE ; Start 04/10/19 at 13:21; Stop 04/10/19 at 13:21; Status DC Ondansetron HCl (Zofran) 4 mg STK-MED ONCE .ROUTE ; Start 04/10/19 at 13:21; Stop 04/10/19 at 13:21; Status DC Phenylephrine HCl (PHENYLEPHRINE in 0.9% NACL PF) 1 mg STK-MED ONCE IV ; Start 04/10/19 at 14:27; Stop 04/10/19 at 14:27; Status DC Aspirin (Ecotrin) 325 mg QHS PO Last administered on 04/12/19at 20:59; Start 04/10/19 at 21:00 Oxycodone/ Acetaminophen (Percocet 5/325) 1 tab PRN Q4HRS PRN PO MODERATE PAIN, LAST OPTION; Start 04/10/19 at 15:15 Oxycodone/ Acetaminophen (Percocet 5/325) 2 tab PRN Q4HRS PRN PO SEVERE PAIN, LAST OPTION Last administered on 04/10/19at 15:54; Start 04/10/19 at 15:30 Insulin Glargine (Lantus Syringe) 30 unit DAILY SQ Last administered on 03/26 09:23; Start 04/11/19 at 09:00 Sodium Polystyrene Sulfonate (Kayexalate) 15 gm 1X ONCE PO Last administered on 04/11/19 10:24; Start 04/11/19 at 09:00; Stop 04/11/19 at 09:01; Status DC Meclizine HCl (Antivert) 12.5 mg PRN Q6HRS PRN PO DIZZINESS Last administered on 04/11/19at 10:24; Start 04/11/19 at 09:30 Albuterol Sulfate (Ventolin Neb Soln) 2.5 mg PRN Q4HRS PRN NEB SHORTNESS OF BREATH; Start 04/11/19 at 10:45 Albuterol Sulfate (Ventolin Neb Soln) 2.5 mg 1X ONCE NEB Last administered on 04/11/19 11:54; Start 04/11/19 at 11:00; Stop 04/11/19 at 11:01; Status DC Lactobacillus Rhamnosus (Culturelle) 1 cap BID PO Last administered on 04/13/19 09:23; Start 04/11/19 at 12:00 Furosemide (Lasix) 40 mg 1X ONCE IVP Last administered on 04/11/19 20:18; Start 04/11/19 at 19:00; Stop 04/11/19 at 19:01; Status DC Perflutren Protein Type A Microsphe (Optison) 0.66 mg 1X ONCE IV ; Start 04/12/19 at 10:00; Stop 04/12/19 at 10:01; Status DC Furosemide (Lasix) 40 mg 1X ONCE IVP Last administered on 04/12/19at 11:44; Start 04/12/19 at 10:45; Stop 04/12/19 at 10:49; Status DC Vitals/I & O Vital Sign - Last 24 Hours 04/12/19 04/12/19 04/12/19 04/12/19 11:00 15:00 19:00 19:40 Temp 98.5 98.0 98.7 98.5 98.0 98.7 Pulse 84 83 94 Resp 16 16 16 B/P (MAP) 140/75 (96) 153/74 (100) 153/53 (86) Pulse Ox 97 98 91 O2 Delivery Nasal Cannula Nasal Cannula Nasal Cannula Nasal Cannula O2 Flow Rate 3.0 3.0 3.0 3.0 04/12/19 04/12/19 04/13/19 04/13/19 20:59 23:00 00:47 03:00 Temp 98.1 98.1 98.1 98.1 Pulse 86 73 Resp 16 16 B/P (MAP) 113/43 (66) 114/51 (72) Pulse Ox 92 94 O2 Delivery Nasal Cannula Nasal Cannula Nasal Cannula Nasal Cannula O2 Flow Rate 3.0 3.0 3.0 3.0 04/13/19 04/13/19 04/13/19 05:09 06:32 07:00 Temp 97.7 97.7 Pulse 81 Resp 16 B/P (MAP) 155/74 (101) Pulse Ox 94 O2 Delivery Room Air Room Air Nasal Cannula O2 Flow Rate 3.0 Intake and Output 04/12/19 04/13/19 04/13/19 16:59 00:59 08:59 Intake Total 230 ml 50 ml Output Total 1600 ml 2300 ml 1400 ml Balance -1370 ml -2300 ml -1350 ml FLORI BAIRES MD Apr 13, 2019 10:09
[2019-04-13] MEDS: fentaNYL PF VIAL 100 MCG/2 ML VIAL IV PRN ×2 (10:44→13:37)
--- NOTE | 2019-04-13 10:56 | NUR ---
Wound Care: Follow up to change wound vac to L foot. Upon removal of dressing a red, swollen, indurated area noted to central plantar surface of L foot. When pressed, purulent drainage observed filling the wound cavity. Dr. Diaz at bedside. Left vac off for now pending notification to Dr. Sandoval of new developments. Daniel FELIZ paged Dr. Sandoval to call back. Will wait for further instruction. Currently packed with aquacel AG and covered with gauze and tape. Iodoflex replaced to plantar wounds of R foot and covered with telfa dressings. Addendum: 04/13/19 at 1109 by LIZ STEELE RN Culture obtained from L foot wound at this time. Daniel FELIZ sent to Lab Addendum: 04/13/19 at 1134 by LIZ STEELE RN Received callback from Dr. Sandoval who stated to leave aquacel dressing in place and he would plan on further debridement for 04/14/19 and possible intervention to R 3rd toe DFU.
[2019-04-13 11:00] VITALS: BP 150/49
--- NOTE | 2019-04-13 11:16 | PDOC ---
Infectious Disease Note Subjective Subjective Better but right arm better. less pain. No N/V/D/SOA./rash/F Vital Sign Vital Signs Vital Signs Date Time Temp Pulse Resp B/P (MAP) Pulse Ox O2 Delivery O2 Flow Rate FiO2 04/13/19 10:45 16 Room Air 04/13/19 07:00 97.7 81 155/74 (101) 94 3.0 97.7 Physical Exam PHYSICAL EXAM CONSTITUTIONAL: She is in bed. She is morbidly obese. She is cooperative. She is in no acute distress. Looks much better HEENT: Pupils are equal and reactive. She has normal conjunctivae. Oral cavity, pharynx is clear. NECK: Supple, no JVD. LUNGS: Clear to auscultation bilaterally. Wa son CPAP HEART: S1, S2. ABDOMEN: Morbidly obese, soft, nontender, no guarding or rebound. EXTREMITIES: Without clubbing, cyanosis. Left foot wound with pus at base of wound. Right great toe plantar wound - dressed. She has a mild right heel ulcer as well. 3 rd r toe with dry ulcer less swelling and erythema SKIN: Skin is warm to touch without signs of rash. She has some yeast in her folds, also some yeast on her lower extremities. NEUROLOGIC: She is nonfocal, moves all extremities, answers questions. PSYCHIATRIC: Affect is appropriate IV: PICC RUE - clean Labs Lab Laboratory Tests Test 04/12/19 11:14 04/12/19 16:46 04/12/19 20:23 04/13/19 04:30 Glucose (Fingerstick) 184 mg/dL (70-99) 198 mg/dL (70-99) 194 mg/dL (70-99) White Blood Count 7.9 x10^3/uL (4.0-11.0) Red Blood Count 3.95 x10^6/uL (3.50-5.40) Hemoglobin 11.4 g/dL (12.0-15.5) Hematocrit 35.4 % (36.0-47.0) Mean Corpuscular Volume 90 fL (79-100) Mean Corpuscular Hemoglobin 29 pg (25-35) Mean Corpuscular Hemoglobin Concent 32 g/dL (31-37) Red Cell Distribution Width 17.7 % (11.5-14.5) Platelet Count 297 x10^3/uL (140-400) Neutrophils (%) (Auto) 65 % (31-73) Lymphocytes (%) (Auto) 20 % (24-48) Monocytes (%) (Auto) 9 % (0-9) Eosinophils (%) (Auto) 6 % (0-3) Basophils (%) (Auto) 0 % (0-3) Neutrophils # (Auto) 5.1 x10^3/uL (1.8-7.7) Lymphocytes # (Auto) 1.6 x10^3/uL (1.0-4.8) Monocytes # (Auto) 0.7 x10^3/uL (0.0-1.1) Eosinophils # (Auto) 0.4 x10^3/uL (0.0-0.7) Basophils # (Auto) 0.0 x10^3/uL (0.0-0.2) Sodium Level 145 mmol/L (136-145) Potassium Level 4.6 mmol/L (3.5-5.1) Chloride Level 106 mmol/L (98-107) Carbon Dioxide Level 39 mmol/L (21-32) Anion Gap 0 (6-14) Blood Urea Nitrogen 19 mg/dL (7-20) Creatinine 0.6 mg/dL (0.6-1.0) Estimated GFR (Cockcroft-Gault) 102.7 BUN/Creatinine Ratio 32 (6-20) Glucose Level 118 mg/dL (70-99) Calcium Level 8.6 mg/dL (8.5-10.1) Total Bilirubin 0.3 mg/dL (0.2-1.0) Aspartate Amino Transf (AST/SGOT) 7 U/L (15-37) Alanine Aminotransferase (ALT/SGPT) 17 U/L (14-59) Alkaline Phosphatase 143 U/L (46-116) Total Protein 6.5 g/dL (6.4-8.2) Albumin 2.0 g/dL (3.4-5.0) Albumin/Globulin Ratio 0.4 (1.0-1.7) Test 04/13/19 07:25 Glucose (Fingerstick) 141 mg/dL (70-99) Micro Microbiology 04/10/19 Blood Culture - Preliminary, Resulted NO GROWTH AFTER 1 DAY Objective Assessment L 3 rd toe osteomyelitis - infection - despite amoxicillin/Clinda Left third toe amputation metatarsal, with toe, single 04/10 ALISIA Cephalexin allegy -swelling and throat closing leukocytosis - now s/p steroids prior to surgery Yeast skin Dm Right plantar wound Plan Plan of Care cont fluconazole/Meropenem/Dapto New cults 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 Sandoval - he will come by and eval later today F/u labs and cults - cult dated 04/11 likely from right foot plantar Wound care following D/w nursing MEG BURNS MD Apr 13, 2019 11:16
[2019-04-13] MEDS ORDERED: ATEN50TA PO (13:23)
[2019-04-13] MEDS: FLUCONAZOLE 200MG/100ML PREMIX 100 ML IV SCH (13:27)
[2019-04-13] MEDS: ATENOLOL 50 MG TABLET. PO SCH ×2 (13:36→20:40)
--- NOTE | 2019-04-13 13:50 | PDOC ---
SUBJECTIVE ROS Stable OBJECTIVE Vital Signs Vital Signs Date Time Temp Pulse Resp B/P (MAP) Pulse Ox O2 Delivery O2 Flow Rate FiO2 04/13/19 13:37 16 Room Air 04/13/19 13:37 86 150/49 04/13/19 12:09 3.0 04/13/19 11:00 97.9 95 97.9 I & 0 Intake and Output 04/13/19 06:59 Intake Total 530 ml Output Total 5300 ml Balance -4770 ml Intake Oral 530 ml Output Urine Total 5300 ml # Voids 7 # Bowel Movements 3 PHYSICAL EXAM Physical Exam GENERAL: morbidly obese, NAD HEENT: OM moist NECK: Supple, thick LUNGS: Clear to auscultation bilaterally, decreased at bases, No accessory muscle use HEART: RRR ABDOMEN: Morbidly obese, soft, nontender, EXTREMITIES: Left third toe gangrenous with purulent material,Chronic lymphedema NEUROLOGIC: Grossly Normal PSYCHIATRIC: Affect is appropriate No Trejo, No CVA or SP tenderness DIAGNOSIS/ASSESSMENT Assessment & Plan ALISIA- Pre-renal Resolved, Renal function back to baseline Hx of NSAID use , DM Supportive care, Strict I/O, avoid Nephrotoxins and NSAID's, Monitor 3 rd toe osteomyelitis -On Abx per ID Hyperkalemia- Resolved Microscopic hematuria +-? Non Trejo sample Could be sec to DM as well but No overt Proteinuria, Few WBC's +, if UTI ruled out recommend consult Urology, defer to primary DM- per primary HTN - antihypertensives Will sign off COMMENT/RELEVANT DATA Meds Current Medications Medications (Trade) Dose Ordered Sig/Facundo Start Time Stop Time Status Last Admin Dose Admin Acetaminophen (Tylenol) 500 mg PRN Q6HRS PRN 04/10/19 08:15 04/12/19 13:04 500 MG Acetaminophen/ Hydrocodone Bitart (Lortab 5/325) 2 tab PRN Q4HRS PRN 04/09/19 22:30 04/13/19 10:45 2 TAB Albuterol Sulfate (Ventolin Neb Soln) 2.5 mg 1X ONCE 04/11/19 11:00 04/11/19 11:01 DC 04/11/19 11:54 2.5 MG Aspirin (Ecotrin) 325 mg QHS 04/10/19 21:00 04/12/19 20:59 325 MG Atenolol (Tenormin) 50 mg BID 04/13/19 14:00 04/13/19 13:37 50 MG Daptomycin 900 mg/ Sodium Chloride 50 ml @ 100 mls/hr Q24H 04/10/19 13:00 04/12/19 14:12 100 MLS/HR Dexamethasone Sodium Phosphate (Decadron) 4 mg STK-MED ONCE 04/10/19 13:21 04/10/19 13:21 DC Dextrose 250 ml PRN Q15MIN PRN 04/10/19 08:15 Dextrose (Dextrose 50%-Water Syringe) 12.5 gm PRN Q15MIN PRN 04/10/19 08:15 Fentanyl Citrate (Fentanyl 2ml Vial) 100 mcg STK-MED ONCE 04/10/19 13:20 04/10/19 13:21 DC Fluconazole/ Sodium Chloride 100 ml @ 100 mls/hr Q24H 04/10/19 13:00 04/13/19 13:27 100 MLS/HR Furosemide (Lasix) 40 mg 1X ONCE 04/12/19 10:45 04/12/19 10:49 DC 04/12/19 11:44 40 MG Gabapentin (Neurontin) 1,200 mg HS 04/10/19 21:00 04/12/19 20:59 1,200 MG Hydromorphone HCl (Dilaudid) 0.5 mg PRN Q10MIN PRN 04/10/19 13:15 04/11/19 11:50 DC Insulin Glargine (Lantus Syringe) 30 unit DAILY 04/11/19 09:00 04/13/19 09:23 30 UNIT Insulin Human Lispro (HumaLOG) 0-9 UNITS TIDWMEALS 04/10/19 12:00 04/12/19 08:27 4 UNITS Lactobacillus Rhamnosus (Culturelle) 1 cap BID 04/11/19 12:00 04/13/19 09:23 1 CAP Lidocaine HCl (Lidocaine Pf 2% Vial) 5 ml STK-MED ONCE 04/10/19 13:21 04/10/19 13:21 DC Meclizine HCl (Antivert) 12.5 mg PRN Q6HRS PRN 04/11/19 09:30 04/11/19 10:24 12.5 MG Meropenem 1 gm/ Sodium Chloride 100 ml @ 200 mls/hr Q8HRS 04/10/19 14:00 04/13/19 06:03 200 MLS/HR Morphine Sulfate (Morphine Sulfate) 1 mg PRN Q10MIN PRN 04/10/19 13:15 04/11/19 11:50 DC Ondansetron HCl (Zofran) 4 mg STK-MED ONCE 04/10/19 13:21 04/10/19 13:21 DC Oxycodone/ Acetaminophen (Percocet 5/325) 2 tab PRN Q4HRS PRN 04/10/19 15:30 04/10/19 15:54 2 TAB Perflutren Protein Type A Microsphe (Optison) 0.66 mg 1X ONCE 04/12/19 10:00 04/12/19 10:01 DC Phenylephrine HCl (PHENYLEPHRINE in 0.9% NACL PF) 1 mg STK-MED ONCE 04/10/19 14:27 04/10/19 14:27 DC Piperacillin Sod/ Tazobactam Sod (Zosyn Per Pharmacy) 1 each PRN DAILY PRN 04/09/19 22:30 04/10/19 12:35 DC Piperacillin Sod/ Tazobactam Sod 3.375 gm/Sodium Chloride 50 ml @ 100 mls/hr Q6HRS 04/10/19 00:00 04/10/19 12:35 DC 04/10/19 11:35 100 MLS/HR Prochlorperazine Edisylate (Compazine) 5 mg PACU PRN PRN 04/10/19 13:15 04/11/19 11:50 DC Propofol 20 ml @ As Directed STK-MED ONCE 04/10/19 13:20 04/10/19 13:21 DC Ringer's Solution 1,000 ml @ 30 mls/hr Q24H 04/10/19 13:14 04/11/19 01:13 DC Sevoflurane (Ultane) 30 ml STK-MED ONCE 04/10/19 13:20 04/10/19 13:21 DC Sodium Polystyrene Sulfonate (Kayexalate) 15 gm 1X ONCE 04/11/19 09:00 04/11/19 09:01 DC 04/11/19 10:24 15 GM Sodium Chloride ([place] Saline Nasal) 1 nadeem PRN Q2HRS PRN 04/10/19 11:45 04/10/19 15:54 1 NADEEM Vancomycin HCl (Vanco Per Pharmacy) 1 each PRN DAILY PRN 04/09/19 22:30 04/10/19 12:36 DC 04/10/19 03:41 1 EACH Vancomycin HCl (Vancomycin Trough Level) 1 each 1X ONCE 04/11/19 04:30 04/11/19 04:31 Cancel Vancomycin HCl 2 gm/Sodium Chloride 500 ml @ 250 mls/hr Q12H 04/10/19 05:00 04/10/19 12:36 DC 04/10/19 05:20 250 MLS/HR Lab Laboratory Tests Test 04/12/19 16:46 04/12/19 20:23 04/13/19 04:30 04/13/19 07:25 Glucose (Fingerstick) 198 mg/dL (70-99) 194 mg/dL (70-99) 141 mg/dL (70-99) White Blood Count 7.9 x10^3/uL (4.0-11.0) Red Blood Count 3.95 x10^6/uL (3.50-5.40) Hemoglobin 11.4 g/dL (12.0-15.5) Hematocrit 35.4 % (36.0-47.0) Mean Corpuscular Volume 90 fL (79-100) Mean Corpuscular Hemoglobin 29 pg (25-35) Mean Corpuscular Hemoglobin Concent 32 g/dL (31-37) Red Cell Distribution Width 17.7 % (11.5-14.5) Platelet Count 297 x10^3/uL (140-400) Neutrophils (%) (Auto) 65 % (31-73) Lymphocytes (%) (Auto) 20 % (24-48) Monocytes (%) (Auto) 9 % (0-9) Eosinophils (%) (Auto) 6 % (0-3) Basophils (%) (Auto) 0 % (0-3) Neutrophils # (Auto) 5.1 x10^3/uL (1.8-7.7) Lymphocytes # (Auto) 1.6 x10^3/uL (1.0-4.8) Monocytes # (Auto) 0.7 x10^3/uL (0.0-1.1) Eosinophils # (Auto) 0.4 x10^3/uL (0.0-0.7) Basophils # (Auto) 0.0 x10^3/uL (0.0-0.2) Sodium Level 145 mmol/L (136-145) Potassium Level 4.6 mmol/L (3.5-5.1) Chloride Level 106 mmol/L (98-107) Carbon Dioxide Level 39 mmol/L (21-32) Anion Gap 0 (6-14) Blood Urea Nitrogen 19 mg/dL (7-20) Creatinine 0.6 mg/dL (0.6-1.0) Estimated GFR (Cockcroft-Gault) 102.7 BUN/Creatinine Ratio 32 (6-20) Glucose Level 118 mg/dL (70-99) Calcium Level 8.6 mg/dL (8.5-10.1) Total Bilirubin 0.3 mg/dL (0.2-1.0) Aspartate Amino Transf (AST/SGOT) 7 U/L (15-37) Alanine Aminotransferase (ALT/SGPT) 17 U/L (14-59) Alkaline Phosphatase 143 U/L (46-116) Total Protein 6.5 g/dL (6.4-8.2) Albumin 2.0 g/dL (3.4-5.0) Albumin/Globulin Ratio 0.4 (1.0-1.7) Test 04/13/19 11:17 Glucose (Fingerstick) 181 mg/dL (70-99) Results All relevant outside records, renal labs, imaging studies, telemetry/EKG's were reviewed. SANDOR LEE MD Apr 13, 2019 13:50
[2019-04-13] MEDS: DAPTOMYCIN IV SCH (14:39)
[2019-04-13] MEDS: NORMAL SALINE IV SCH (14:39)
[2019-04-13 15:00] VITALS: BP 158/72
--- NOTE | 2019-04-13 15:07 | PATHOLOGY ---
[facility] Accession Number: [id number] . 01 Material submitted: . toe - LEFT 3RD TOE WITH METATARSAL. Modifiers: left, third . 01 Clinical history: . Osteomyelitis . 01 Frozen section diagnosis: . . /QLM . 02 Diagnosis: Toe, left third, amputation: - Skin of toe with ulceration and associated necrosis. - Underlying bone with focal acute osteomyelitis. - Separate portion of unremarkable bone. . (SK:mml; 04/13/2019) [facility] 04/13/2019 1259 Local . 02 Electronically signed: . Pj Bosch MD, Pathologist NPI- [id number] . 01 Gross description: . The specimen is received in formalin, labeled "Sendy Adams, left third toe with metatarsal". Received is an amputated digit measuring 4.8 x 2.5 x 2.4 cm in greatest dimensions. The bone margin is jagged in appearance. The soft tissue margin is dusky hummel-peter and necrotic in appearance. The bone and soft tissue margins are inked black. The distal half of the specimen is brown-black and crusted in appearance. The nail is absent. The remaining epidermal surface is pale hummel and flaky in appearance. A full-thickness longitudinal cross-section is submitted from proximal to distal aspects in cassettes A1 and A2, following decalcification. . Also received within the specimen container is an additional segment of bone measuring 2.6 x 1.7 x 1.6 cm in greatest dimensions. One margin is smooth and convex in appearance, consistent with disarticulation, and the opposite margin is jagged. The jagged margin is inked black. A full-thickness longitudinal cross-section is submitted from jagged to disarticulated aspects in cassettes A3 and A4, following decalcification. (CAA; 04/12/2019) QAC/QAC 04/12/2019 0911 Local . 02 Pathologist provided ICD-10: M86.171, I96, L98.499 . 02 CPT . 431469, 047889 Specimen Comment: A courtesy copy of this report has been sent to Specimen Comment: [phone], . Specimen Comment: Report sent to / DR GUZMAN Performed at: 01 [facility] [address], [place] [id number] MD Wyatt Carlos MD Phone: [phone] Performed at: 02 [facility] [address] [place], [place] [id number] MD Derrek Albert MD Phone: [phone]
--- NOTE | 2019-04-13 15:40 | RAD ---
Single view of the chest. 04/13/2019 1:13 PM Indication: Congestive heart failure Comparison: Chest radiograph April 11, 2019 Findings: Right upper extremity PICC line now in place with tip at cavoatrial junction. Heart remains mildly enlarged. Central vascular congestion and mild interstitial edema are similar. No definitive effusion is seen. No pneumothorax is identified. Bony thorax is unchanged. IMPRESSION: 1. Right upper extremity PICC line with tip to cavoatrial junction 2. Cardiomegaly, central vascular congestion, interstitial edema consistent with provided history of congestive failure. The overall appearance is similar. Electronically signed by: Crow Clements MD (04/13/2019 3:37 PM) [id number]
--- NOTE | 2019-04-13 16:01 | PDOC ---
PROGRESS NOTES Subjective Subjective Feels okay but left foot is worse than before on exam. Objective Vital Signs Vital Signs Date Time Temp Pulse Resp B/P (MAP) Pulse Ox O2 Delivery O2 Flow Rate FiO2 04/13/19 15:09 16 Nasal Cannula 3.0 04/13/19 15:00 97.7 83 158/72 (100) 94 97.7 Physical Exam Left foot has tenderness medially and probable purulent drainage. The right great toe has a metatarsophalangeal joint plantar ulcer with possible drainage. The right third toe has ulcerations and dressings. Labs Laboratory Tests Test 04/11/19 16:39 04/11/19 21:00 04/12/19 02:13 04/12/19 05:00 Glucose (Fingerstick) 170 mg/dL (70-99) 161 mg/dL (70-99) 175 mg/dL (70-99) White Blood Count 11.0 x10^3/uL (4.0-11.0) Red Blood Count 3.92 x10^6/uL (3.50-5.40) Hemoglobin 11.3 g/dL (12.0-15.5) Hematocrit 35.0 % (36.0-47.0) Mean Corpuscular Volume 89 fL (79-100) Mean Corpuscular Hemoglobin 29 pg (25-35) Mean Corpuscular Hemoglobin Concent 32 g/dL (31-37) Red Cell Distribution Width 17.2 % (11.5-14.5) Platelet Count 288 x10^3/uL (140-400) Neutrophils (%) (Auto) 73 % (31-73) Lymphocytes (%) (Auto) 14 % (24-48) Monocytes (%) (Auto) 8 % (0-9) Eosinophils (%) (Auto) 5 % (0-3) Basophils (%) (Auto) 1 % (0-3) Neutrophils # (Auto) 8.0 x10^3/uL (1.8-7.7) Lymphocytes # (Auto) 1.5 x10^3/uL (1.0-4.8) Monocytes # (Auto) 0.8 x10^3/uL (0.0-1.1) Eosinophils # (Auto) 0.5 x10^3/uL (0.0-0.7) Basophils # (Auto) 0.1 x10^3/uL (0.0-0.2) Sodium Level 144 mmol/L (136-145) Potassium Level 4.7 mmol/L (3.5-5.1) Chloride Level 108 mmol/L (98-107) Carbon Dioxide Level 33 mmol/L (21-32) Anion Gap 3 (6-14) Blood Urea Nitrogen 27 mg/dL (7-20) Creatinine 0.8 mg/dL (0.6-1.0) Estimated GFR (Cockcroft-Gault) 73.7 Glucose Level 180 mg/dL (70-99) Calcium Level 7.9 mg/dL (8.5-10.1) Triglycerides Level 224 mg/dL (0-150) Cholesterol Level 152 mg/dL (0-200) LDL Cholesterol, Calculated 82 mg/dL (0-100) VLDL Cholesterol, Calculated 45 mg/dL (0-40) Non-HDL Cholesterol Calculated 127 mg/dL (0-129) HDL Cholesterol 25 mg/dL (40-60) Cholesterol/HDL Ratio 6.1 Thyroid Stimulating Hormone (TSH) 0.730 uIU/mL (0.358-3.74) Test 04/12/19 07:17 04/12/19 11:00 04/12/19 11:14 04/12/19 16:46 Glucose (Fingerstick) 153 mg/dL (70-99) 184 mg/dL (70-99) 198 mg/dL (70-99) Urine Collection Type Unknown Urine Color Yellow Urine Clarity Clear Urine pH 6.0 Urine Specific [place] 1.020 Urine Protein Negative mg/dL (NEG-TRACE) Urine Glucose (UA) Negative mg/dL (NEG) Urine Ketones (Stick) Negative mg/dL (NEG) Urine Blood Moderate (NEG) Urine Nitrite Negative (NEG) Urine Bilirubin Negative (NEG) Urine Urobilinogen Dipstick 0.2 mg/dL (0.2 mg/dL) Urine Leukocyte Esterase Small (NEG) Urine RBC 20-40 /HPF (0-2) Urine WBC 5-10 /HPF (0-4) Urine Squamous Epithelial Cells Mod /LPF Urine Bacteria Few /HPF (0-FEW) Test 04/12/19 20:23 04/13/19 04:30 04/13/19 07:25 04/13/19 11:17 Glucose (Fingerstick) 194 mg/dL (70-99) 141 mg/dL (70-99) 181 mg/dL (70-99) White Blood Count 7.9 x10^3/uL (4.0-11.0) Red Blood Count 3.95 x10^6/uL (3.50-5.40) Hemoglobin 11.4 g/dL (12.0-15.5) Hematocrit 35.4 % (36.0-47.0) Mean Corpuscular Volume 90 fL (79-100) Mean Corpuscular Hemoglobin 29 pg (25-35) Mean Corpuscular Hemoglobin Concent 32 g/dL (31-37) Red Cell Distribution Width 17.7 % (11.5-14.5) Platelet Count 297 x10^3/uL (140-400) Neutrophils (%) (Auto) 65 % (31-73) Lymphocytes (%) (Auto) 20 % (24-48) Monocytes (%) (Auto) 9 % (0-9) Eosinophils (%) (Auto) 6 % (0-3) Basophils (%) (Auto) 0 % (0-3) Neutrophils # (Auto) 5.1 x10^3/uL (1.8-7.7) Lymphocytes # (Auto) 1.6 x10^3/uL (1.0-4.8) Monocytes # (Auto) 0.7 x10^3/uL (0.0-1.1) Eosinophils # (Auto) 0.4 x10^3/uL (0.0-0.7) Basophils # (Auto) 0.0 x10^3/uL (0.0-0.2) Sodium Level 145 mmol/L (136-145) Potassium Level 4.6 mmol/L (3.5-5.1) Chloride Level 106 mmol/L (98-107) Carbon Dioxide Level 39 mmol/L (21-32) Anion Gap 0 (6-14) Blood Urea Nitrogen 19 mg/dL (7-20) Creatinine 0.6 mg/dL (0.6-1.0) Estimated GFR (Cockcroft-Gault) 102.7 BUN/Creatinine Ratio 32 (6-20) Glucose Level 118 mg/dL (70-99) Calcium Level 8.6 mg/dL (8.5-10.1) Total Bilirubin 0.3 mg/dL (0.2-1.0) Aspartate Amino Transf (AST/SGOT) 7 U/L (15-37) Alanine Aminotransferase (ALT/SGPT) 17 U/L (14-59) Alkaline Phosphatase 143 U/L (46-116) Total Protein 6.5 g/dL (6.4-8.2) Albumin 2.0 g/dL (3.4-5.0) Albumin/Globulin Ratio 0.4 (1.0-1.7) Laboratory Tests Test 04/12/19 16:46 04/12/19 20:23 04/13/19 04:30 04/13/19 07:25 Glucose (Fingerstick) 198 mg/dL (70-99) 194 mg/dL (70-99) 141 mg/dL (70-99) White Blood Count 7.9 x10^3/uL (4.0-11.0) Red Blood Count 3.95 x10^6/uL (3.50-5.40) Hemoglobin 11.4 g/dL (12.0-15.5) Hematocrit 35.4 % (36.0-47.0) Mean Corpuscular Volume 90 fL (79-100) Mean Corpuscular Hemoglobin 29 pg (25-35) Mean Corpuscular Hemoglobin Concent 32 g/dL (31-37) Red Cell Distribution Width 17.7 % (11.5-14.5) Platelet Count 297 x10^3/uL (140-400) Neutrophils (%) (Auto) 65 % (31-73) Lymphocytes (%) (Auto) 20 % (24-48) Monocytes (%) (Auto) 9 % (0-9) Eosinophils (%) (Auto) 6 % (0-3) Basophils (%) (Auto) 0 % (0-3) Neutrophils # (Auto) 5.1 x10^3/uL (1.8-7.7) Lymphocytes # (Auto) 1.6 x10^3/uL (1.0-4.8) Monocytes # (Auto) 0.7 x10^3/uL (0.0-1.1) Eosinophils # (Auto) 0.4 x10^3/uL (0.0-0.7) Basophils # (Auto) 0.0 x10^3/uL (0.0-0.2) Sodium Level 145 mmol/L (136-145) Potassium Level 4.6 mmol/L (3.5-5.1) Chloride Level 106 mmol/L (98-107) Carbon Dioxide Level 39 mmol/L (21-32) Anion Gap 0 (6-14) Blood Urea Nitrogen 19 mg/dL (7-20) Creatinine 0.6 mg/dL (0.6-1.0) Estimated GFR (Cockcroft-Gault) 102.7 BUN/Creatinine Ratio 32 (6-20) Glucose Level 118 mg/dL (70-99) Calcium Level 8.6 mg/dL (8.5-10.1) Total Bilirubin 0.3 mg/dL (0.2-1.0) Aspartate Amino Transf (AST/SGOT) 7 U/L (15-37) Alanine Aminotransferase (ALT/SGPT) 17 U/L (14-59) Alkaline Phosphatase 143 U/L (46-116) Total Protein 6.5 g/dL (6.4-8.2) Albumin 2.0 g/dL (3.4-5.0) Albumin/Globulin Ratio 0.4 (1.0-1.7) Test 04/13/19 11:17 Glucose (Fingerstick) 181 mg/dL (70-99) Assessment Assessment Status post excision of left third toe with gangrenous changes and possible further extension of infection. She requires further debridement and we'll plan that tomorrow. She has ulceration of the plantar aspect of the right great toe metatarsophalangeal joint and ulcerations of the right third toe which would benefit from debridement. Plan Plan of Care I discussed debridement of the left foot, the right plantar foot at the first metatarsophalangeal joint, and the right third toe, all to be done in the operating room tomorrow. She agrees with that plan. We may need to do an MRI of the left forefoot at some point to further determine the amount of bone involvement. She may need a transmetatarsal amputation due to the severity of this left forefoot infection but I will plan debridement only tomorrow and she agrees with that plan. SUSANA AGUAYO MD Apr 13, 2019 16:01
--- NOTE | 2019-04-13 16:54 | PDOC ---
CARDIO Progress Notes Date and Time Date of Service 04/13/2019 Time of Evaluation 1620 Subjective Subjective: No Chest Pain, No shortness of breath, No Palpitations Vitals Vitals Vital Signs Date Time Temp Pulse Resp B/P (MAP) Pulse Ox O2 Delivery O2 Flow Rate FiO2 04/13/19 15:09 16 Nasal Cannula 3.0 04/13/19 15:00 97.7 83 158/72 (100) 94 97.7 Weight Weight [ ] Input and Output Intake and Output Intake and Output 04/13/19 07:00 Intake Total 530 ml Output Total 5300 ml Balance -4770 ml Intake Oral 530 ml Output Urine Total 5300 ml # Voids 7 # Bowel Movements 3 Laboratory Labs Laboratory Tests Test 04/12/19 20:23 04/13/19 04:30 04/13/19 07:25 04/13/19 11:17 Glucose (Fingerstick) 194 mg/dL (70-99) 141 mg/dL (70-99) 181 mg/dL (70-99) White Blood Count 7.9 x10^3/uL (4.0-11.0) Red Blood Count 3.95 x10^6/uL (3.50-5.40) Hemoglobin 11.4 g/dL (12.0-15.5) Hematocrit 35.4 % (36.0-47.0) Mean Corpuscular Volume 90 fL (79-100) Mean Corpuscular Hemoglobin 29 pg (25-35) Mean Corpuscular Hemoglobin Concent 32 g/dL (31-37) Red Cell Distribution Width 17.7 % (11.5-14.5) Platelet Count 297 x10^3/uL (140-400) Neutrophils (%) (Auto) 65 % (31-73) Lymphocytes (%) (Auto) 20 % (24-48) Monocytes (%) (Auto) 9 % (0-9) Eosinophils (%) (Auto) 6 % (0-3) Basophils (%) (Auto) 0 % (0-3) Neutrophils # (Auto) 5.1 x10^3/uL (1.8-7.7) Lymphocytes # (Auto) 1.6 x10^3/uL (1.0-4.8) Monocytes # (Auto) 0.7 x10^3/uL (0.0-1.1) Eosinophils # (Auto) 0.4 x10^3/uL (0.0-0.7) Basophils # (Auto) 0.0 x10^3/uL (0.0-0.2) Sodium Level 145 mmol/L (136-145) Potassium Level 4.6 mmol/L (3.5-5.1) Chloride Level 106 mmol/L (98-107) Carbon Dioxide Level 39 mmol/L (21-32) Anion Gap 0 (6-14) Blood Urea Nitrogen 19 mg/dL (7-20) Creatinine 0.6 mg/dL (0.6-1.0) Estimated GFR (Cockcroft-Gault) 102.7 BUN/Creatinine Ratio 32 (6-20) Glucose Level 118 mg/dL (70-99) Calcium Level 8.6 mg/dL (8.5-10.1) Total Bilirubin 0.3 mg/dL (0.2-1.0) Aspartate Amino Transf (AST/SGOT) 7 U/L (15-37) Alanine Aminotransferase (ALT/SGPT) 17 U/L (14-59) Alkaline Phosphatase 143 U/L (46-116) Total Protein 6.5 g/dL (6.4-8.2) Albumin 2.0 g/dL (3.4-5.0) Albumin/Globulin Ratio 0.4 (1.0-1.7) Test 04/13/19 16:43 Glucose (Fingerstick) 236 mg/dL (70-99) Microbiology Micro Microbiology 04/11/19 Anaerobic/Aerobic Culture, Resulted Pending 04/11/19 Anaerobic Culture Result 1 (DEANNE), Resulted Pending 04/11/19 Aerobic Culture - Preliminary, Resulted 04/11/19 Aerobic Culture Result 1 (DEANNE) - Preliminary, Resulted 04/11/19 Gram Stain - Final, Resulted 04/11/19 Gram Stain Result 1 (DEANNE) - Final, Resulted 04/11/19 Gram Stain Result 2 (DEANNE) - Final, Resulted 04/10/19 Blood Culture - Preliminary, Resulted NO GROWTH AFTER 3 DAYS Physical Exam HEENT: Neck Supple W Full Motion Chest: Symmetric LUNGS: Other (basilar crackles) Heart: S1S2, RRR Abdomen: Soft N/T, Other (obese) Extremities: Other (left foot wound S/P middle toe amputation, right foot wound per wound care team; 1-2+ bilateral Le pitting edema) Neurology: alert, oriented, follow commands Assessment Assessment 1. Osteomyelitis/gangrene: S/P Left third toe metatarsal amputation POD#3 per ortho. Possible debridement tomorrow. 2. HTN: controlled 3. HLP 4. Acute diastolic CHF: EF and WM nml. Still has pulmonary vascular congestion 5. ALISIA/hyperkalemia: prerenal, resolved 6. DM2/DPN: uncontrolled A1C 9.7 7. CAD: PCI/PJ to LAD, clinically stable 8. Hx of TBI with subdural hematoma and craniotomy 9. CAREY: CPAP use 10. Morbid obesity Recommendations 1. Lasix therapy. IV today and start PO tomorrow, extra dose PRN. Monitor K and provide supplement per trend. 2. Continue with secondary prevention. Will obtain LE arterial duplex 3. Antibiotic per ID. BG optimization per PCP 4. Follow up in our office to establish cardiology care. CONNOR TINSLEY APRN Apr 13, 2019 16:54
[2019-04-13] MEDS ORDERED: FUROSEMIDE 40 MG/4 ML VIAL. IVP ONE (17:00)
[2019-04-13 19:00] VITALS: BP 148/82
[2019-04-13] MEDS: GABAPENTIN 400 MG CAPSULE. PO SCH (20:40)
[2019-04-13] MEDS: ATORVASTATIN CALCIUM 20 MG TABLET PO SCH (20:40)
[2019-04-13] MEDS: ASPIRIN ENTERIC COATED 325 MG TABLET.DR. PO SCH (20:40)
[2019-04-13] MEDS ORDERED: INSULIN LISPRO 300 UNITS/3 ML VIAL. SQ ONE (21:00)
[2019-04-13 23:00] VITALS: BP 157/76
[2019-04-14] VITALS (13 sets, daily range): BP systolic 96–150; BP diastolic 44–91
[2019-04-14] MEDS: fentaNYL PF VIAL 100 MCG/2 ML VIAL IV PRN ×3 (02:38→19:15)
[2019-04-14] MEDS: MEROPENEM 1 GM in IV NORMAL SALINE 100ML 100 ML IV SCH ×3 (06:16→22:10)
[2019-04-14] MEDS ORDERED: IV RINGERS,LACTATED 1000ML 1,000 ML IV SCH ×2 (07:00→09:32)
[2019-04-14] MEDS ORDERED: MORPHINE SULFATE 2 MG/ML VIAL. IV PRN ×2 (07:00→09:45)
[2019-04-14] MEDS ORDERED: HYDROmorphone 2 MG/ML VIAL IV PRN (07:00)
[2019-04-14] MEDS ORDERED: PROCHLORPERAZINE 10 MG/2 ML VIAL. IV PRN ×2 (07:00→09:45)
[2019-04-14] MEDS: INSULIN LISPRO 300 UNITS/3 ML VIAL. SQ SCH ×6 (07:30→17:14)
--- NOTE | 2019-04-14 07:30 | PDOC ---
PROGRESS NOTES Chief Complaint Chief Complaint impression 1. LEft THIRD TOE Gangrene -s/p amputation 04/10 (POD # 2) 2. RT heel ulcer - wound care 3. OSteomyelitis - as per peotone xray - 4. DM with hgba1c 9.7 and neuropathy and target organ damage - hx osteo, partial amputation big toe 5. Obesity 6. HTN - controlled 7,. Lymphedema 8. POst op confusion, transient 9, POst op mild hyperkalemia 5.5 10. Post op ALISIA, VMN 11. developing congestive heart failure with diffuse pulmonary edema. Underlying infiltrate in the left lung base cannot excluded. 12. Left rotator cuff calcific tendinopathy. 13. severe protein-caloric malnutrition 14 PULMONARY HYPERTENSION cardiology FOLLOWING echo cont fluconazole/Meropenem/Dapto To OR tomorrow 04/15 -DR AGUAYO - New cults acquired from left toe OT 39 min pt exam, chart review, > 50% of time spent with exam, chart review, pt care coordination History of Present Illness History of Present Illness POD # 1 - some transient confusion last night- she thought she was in a hotel BS high! 300s HGba1c 9.7 WBC 12,7 ESR 105, platelets 317 hgb 12 K 5,5, creat 1,3 from 0.9 - on lasix 20 BID at home ALso requests her meclizine ON hefty doses insulin 27 units mealtimes and 70 qhs PLAN: STart lantus 25 qdaily first dose now AWAIT wound care re that RT heel ulcer and toe wound POst op care/labs PT.OT Self pay? IV abx per ID NO IVF for now re that creat kayexylate 15 x 1 re K 5.5 REcheck BMP tmr - if creat worse, then she agreed to IVF - she did not want to start iVF - afraid of lymphedema OK for home meclizine no lasix for now Vitals Vitals Vital Signs Date Time Temp Pulse Resp B/P (MAP) Pulse Ox O2 Delivery O2 Flow Rate FiO2 04/14/19 04:25 18 96 Nasal Cannula 3.0 04/14/19 02:54 98.1 98 133/73 (93) 98.1 Physical Exam Physical Exam CONSTITUTIONAL: She is in bed. She is morbidly obese. She is cooperative. She is in no acute distress. Looks much better HEENT: Pupils are equal and reactive. She has normal conjunctivae. Oral cavity, pharynx is clear. NECK: Supple, no JVD. LUNGS: Clear to auscultation bilaterally. Wa son CPAP HEART: S1, S2. ABDOMEN: Morbidly obese, soft, nontender, no guarding or rebound. EXTREMITIES: Without clubbing, cyanosis. Left foot wound with pus at base of wound. Right great toe plantar wound - dressed. She has a mild right heel ulcer as well. 3 rd r toe with dry ulcer less swelling and erythema SKIN: Skin is warm to touch without signs of rash. She has some yeast in her folds, also some yeast on her lower extremities. NEUROLOGIC: She is nonfocal, moves all extremities, answers questions. PSYCHIATRIC: Affect is appropriate IV: PICC RUE - clean General: Alert, Oriented X3, Cooperative, No acute distress, mild distress Heart: Regular rate, Normal S1, Normal S2, No murmurs Lungs: Clear Abdomen: Normal bowel sounds, Soft, No tenderness Extremities: No clubbing, No cyanosis, Other (left leg dressing, rt leg dressing, amputated toe wound vac) Skin: Other (left foot wound with wound vac and right foot wound) Labs LABS Laboratory Tests Test 04/13/19 11:17 04/13/19 16:43 04/13/19 20:19 Glucose (Fingerstick) 181 mg/dL (70-99) 236 mg/dL (70-99) 221 mg/dL (70-99) Comment Review of Relevant I have reviewed the following items adrienne (where applicable) has been applied. Labs Laboratory Tests Test 04/12/19 11:00 04/12/19 11:14 04/12/19 16:46 04/12/19 20:23 Urine Collection Type Unknown Urine Color Yellow Urine Clarity Clear Urine pH 6.0 Urine Specific [place] 1.020 Urine Protein Negative mg/dL (NEG-TRACE) Urine Glucose (UA) Negative mg/dL (NEG) Urine Ketones (Stick) Negative mg/dL (NEG) Urine Blood Moderate (NEG) Urine Nitrite Negative (NEG) Urine Bilirubin Negative (NEG) Urine Urobilinogen Dipstick 0.2 mg/dL (0.2 mg/dL) Urine Leukocyte Esterase Small (NEG) Urine RBC 20-40 /HPF (0-2) Urine WBC 5-10 /HPF (0-4) Urine Squamous Epithelial Cells Mod /LPF Urine Bacteria Few /HPF (0-FEW) Glucose (Fingerstick) 184 mg/dL (70-99) 198 mg/dL (70-99) 194 mg/dL (70-99) Test 04/13/19 04:30 04/13/19 07:25 04/13/19 11:17 04/13/19 16:43 White Blood Count 7.9 x10^3/uL (4.0-11.0) Red Blood Count 3.95 x10^6/uL (3.50-5.40) Hemoglobin 11.4 g/dL (12.0-15.5) Hematocrit 35.4 % (36.0-47.0) Mean Corpuscular Volume 90 fL (79-100) Mean Corpuscular Hemoglobin 29 pg (25-35) Mean Corpuscular Hemoglobin Concent 32 g/dL (31-37) Red Cell Distribution Width 17.7 % (11.5-14.5) Platelet Count 297 x10^3/uL (140-400) Neutrophils (%) (Auto) 65 % (31-73) Lymphocytes (%) (Auto) 20 % (24-48) Monocytes (%) (Auto) 9 % (0-9) Eosinophils (%) (Auto) 6 % (0-3) Basophils (%) (Auto) 0 % (0-3) Neutrophils # (Auto) 5.1 x10^3/uL (1.8-7.7) Lymphocytes # (Auto) 1.6 x10^3/uL (1.0-4.8) Monocytes # (Auto) 0.7 x10^3/uL (0.0-1.1) Eosinophils # (Auto) 0.4 x10^3/uL (0.0-0.7) Basophils # (Auto) 0.0 x10^3/uL (0.0-0.2) Sodium Level 145 mmol/L (136-145) Potassium Level 4.6 mmol/L (3.5-5.1) Chloride Level 106 mmol/L (98-107) Carbon Dioxide Level 39 mmol/L (21-32) Anion Gap 0 (6-14) Blood Urea Nitrogen 19 mg/dL (7-20) Creatinine 0.6 mg/dL (0.6-1.0) Estimated GFR (Cockcroft-Gault) 102.7 BUN/Creatinine Ratio 32 (6-20) Glucose Level 118 mg/dL (70-99) Calcium Level 8.6 mg/dL (8.5-10.1) Total Bilirubin 0.3 mg/dL (0.2-1.0) Aspartate Amino Transf (AST/SGOT) 7 U/L (15-37) Alanine Aminotransferase (ALT/SGPT) 17 U/L (14-59) Alkaline Phosphatase 143 U/L (46-116) Total Protein 6.5 g/dL (6.4-8.2) Albumin 2.0 g/dL (3.4-5.0) Albumin/Globulin Ratio 0.4 (1.0-1.7) Glucose (Fingerstick) 141 mg/dL (70-99) 181 mg/dL (70-99) 236 mg/dL (70-99) Test 04/13/19 20:19 Glucose (Fingerstick) 221 mg/dL (70-99) Laboratory Tests Test 04/13/19 11:17 04/13/19 16:43 04/13/19 20:19 Glucose (Fingerstick) 181 mg/dL (70-99) 236 mg/dL (70-99) 221 mg/dL (70-99) Microbiology 04/11/19 Anaerobic/Aerobic Culture, Resulted Pending 04/11/19 Anaerobic Culture Result 1 (DEANNE), Resulted Pending 04/11/19 Aerobic Culture - Preliminary, Resulted 04/11/19 Aerobic Culture Result 1 (DEANNE) - Preliminary, Resulted 04/11/19 Gram Stain - Final, Resulted 04/11/19 Gram Stain Result 1 (DEANNE) - Final, Resulted 04/11/19 Gram Stain Result 2 (DEANNE) - Final, Resulted 04/10/19 Blood Culture - Preliminary, Resulted NO GROWTH AFTER 3 DAYS Medications Current Medications Vancomycin HCl (Vanco Per Pharmacy) 1 each PRN DAILY PRN MC SEE COMMENTS Last administered on 04/10/19at 03:41; Start 04/09/19 at 22:30; Stop 04/10/19 at 12:36; Status DC Piperacillin Sod/ Tazobactam Sod (Zosyn Per Pharmacy) 1 each PRN DAILY PRN MC SEE COMMENTS; Start 04/09/19 at 22:30; Stop 04/10/19 at 12:35; Status DC Sodium Chloride 1,000 ml @ 100 mls/hr Q10H IV Last administered on 04/11/19at 05:23; Start 04/09/19 at 23:00; Stop 04/11/19 at 09:26; Status DC Acetaminophen/ Hydrocodone Bitart (Lortab 5/325) 1 tab PRN Q4HRS PRN PO MODERATE PAIN 4-6; Start 04/09/19 at 22:30 Acetaminophen/ Hydrocodone Bitart (Lortab 5/325) 2 tab PRN Q4HRS PRN PO SEVERE PAIN 7-10 Last administered on 04/13/19at 10:45; Start 04/09/19 at 22:30 Insulin Glargine (Lantus Syringe) 70 unit QHS SQ Last administered on 04/13/19at 20:44; Start 04/09/19 at 23:00 Insulin Human Lispro (HumaLOG) 20 units 1X ONCE SQ Last administered on 04/09/19at 23:02; Start 04/09/19 at 23:00; Stop 04/09/19 at 23:01; Status DC Insulin Human Lispro (HumaLOG) 0-7 UNITS TIDWMEALS SQ ; Start 04/10/19 at 08:00; Stop 04/10/19 at 08:08; Status DC Dextrose (Dextrose 50%-Water Syringe) 12.5 gm PRN Q15MIN PRN IV SEE COMMENTS; Start 04/09/19 at 22:30; Status Cancel Dextrose 250 ml PRN Q15MIN PRN IV SEE COMMENTS; Start 04/09/19 at 22:30; Status Cancel Insulin Human Lispro (HumaLOG) 26 units TIDAC SQ Last administered on 04/13/19at 17:35; Start 04/10/19 at 07:30 Piperacillin Sod/ Tazobactam Sod 3.375 gm/Sodium Chloride 50 ml @ 100 mls/hr Q6HRS IV Last administered on 04/10/19at 11:35; Start 04/10/19 at 00:00; Stop 04/10/19 at 12:35; Status DC Gabapentin (Neurontin) 900 mg BID92 PO Last administered on 04/13/19at 13:37; Start 04/10/19 at 09:00 Gabapentin (Neurontin) 1,200 mg HS PO Last administered on 04/13/19at 20:44; Start 04/10/19 at 21:00 Atenolol (Tenormin) 40 mg DAILY PO ; Start 04/10/19 at 09:00; Status UNV Vancomycin HCl 2 gm/Sodium Chloride 500 ml @ 250 mls/hr Q12H IV Last administered on 04/10/19at 05:20; Start 04/10/19 at 05:00; Stop 04/10/19 at 12:36; Status DC Vancomycin HCl (Vancomycin Trough Level) 1 each 1X ONCE MC ; Start 04/11/19 at 04:30; Stop 04/11/19 at 04:31; Status Cancel Insulin Human Lispro (HumaLOG) 0-9 UNITS TIDWMEALS SQ Last administered on 04/12/19at 08:27; Start 04/10/19 at 12:00 Dextrose (Dextrose 50%-Water Syringe) 12.5 gm PRN Q15MIN PRN IV SEE COMMENTS; Start 04/10/19 at 08:15 Dextrose 250 ml PRN Q15MIN PRN IV SEE COMMENTS; Start 04/10/19 at 08:15 Acetaminophen (Tylenol) 500 mg PRN Q6HRS PRN PO MILD PAIN / TEMP Last administered on 04/12/19at 13:04; Start 04/10/19 at 08:15 Ondansetron HCl (Zofran) 4 mg PRN Q6HRS PRN IV NAUSEA/VOMITING Last administered on 04/13/19at 12:24; Start 04/10/19 at 08:15 Fentanyl Citrate (Fentanyl 2ml Vial) 50 mcg PRN Q2HR PRN IV PAIN Last administered on 04/14/19at 02:38; Start 04/10/19 at 08:15 Sodium Chloride ([place] Saline Nasal) 1 nadeem PRN Q2HRS PRN NS NASAL CONGESTION Last administered on 04/10/19at 15:54; Start 04/10/19 at 11:45 Fluconazole/ Sodium Chloride 100 ml @ 100 mls/hr Q24H IV Last administered on 04/13/19at 13:27; Start 04/10/19 at 13:00 Meropenem 1 gm/ Sodium Chloride 100 ml @ 200 mls/hr Q8HRS IV Last administered on 04/14/19at 06:16; Start 04/10/19 at 14:00 Daptomycin 900 mg/ Sodium Chloride 50 ml @ 100 mls/hr Q24H IV Last administered on 04/13/19at 14:40; Start 04/10/19 at 13:00 Fentanyl Citrate (Fentanyl 2ml Vial) 25 mcg PRN Q5MIN PRN IV MILD PAIN 1-3; Start 04/10/19 at 13:15; Stop 04/11/19 at 11:49; Status DC Fentanyl Citrate (Fentanyl 2ml Vial) 50 mcg PRN Q5MIN PRN IV MODERATE TO SEVERE PAIN; Start 04/10/19 at 13:15; Stop 04/11/19 at 11:49; Status DC Morphine Sulfate (Morphine Sulfate) 1 mg PRN Q10MIN PRN IV SEVERE PAIN 7-10; Start 04/10/19 at 13:15; Stop 04/11/19 at 11:50; Status DC Ringer's Solution 1,000 ml @ 30 mls/hr Q24H IV ; Start 04/10/19 at 13:14; Stop 04/11/19 at 01:13; Status DC Hydromorphone HCl (Dilaudid) 0.5 mg PRN Q10MIN PRN IV SEV PAIN, Second choice; Start 04/10/19 at 13:15; Stop 04/11/19 at 11:50; Status DC Prochlorperazine Edisylate (Compazine) 5 mg PACU PRN PRN IV NAUSEA, MRX1; Start 04/10/19 at 13:15; Stop 04/11/19 at 11:50; Status DC Fentanyl Citrate (Fentanyl 2ml Vial) 100 mcg STK-MED ONCE .ROUTE ; Start 04/10/19 at 13:20; Stop 04/10/19 at 13:21; Status DC Sevoflurane (Ultane) 30 ml STK-MED ONCE IH ; Start 04/10/19 at 13:20; Stop 04/10/19 at 13:21; Status DC Propofol 20 ml @ As Directed STK-MED ONCE IV ; Start 04/10/19 at 13:20; Stop 04/10/19 at 13:21; Status DC Dexamethasone Sodium Phosphate (Decadron) 4 mg STK-MED ONCE .ROUTE ; Start 04/10/19 at 13:21; Stop 04/10/19 at 13:21; Status DC Lidocaine HCl (Lidocaine Pf 2% Vial) 5 ml STK-MED ONCE .ROUTE ; Start 04/10/19 at 13:21; Stop 04/10/19 at 13:21; Status DC Ondansetron HCl (Zofran) 4 mg STK-MED ONCE .ROUTE ; Start 04/10/19 at 13:21; Stop 04/10/19 at 13:21; Status DC Phenylephrine HCl (PHENYLEPHRINE in 0.9% NACL PF) 1 mg STK-MED ONCE IV ; Start 04/10/19 at 14:27; Stop 04/10/19 at 14:27; Status DC Aspirin (Ecotrin) 325 mg QHS PO Last administered on 04/13/19at 20:44; Start 04/10/19 at 21:00 Oxycodone/ Acetaminophen (Percocet 5/325) 1 tab PRN Q4HRS PRN PO MODERATE PAIN, LAST OPTION; Start 04/10/19 at 15:15 Oxycodone/ Acetaminophen (Percocet 5/325) 2 tab PRN Q4HRS PRN PO SEVERE PAIN, LAST OPTION Last administered on 04/10/19at 15:54; Start 04/10/19 at 15:30 Insulin Glargine (Lantus Syringe) 30 unit DAILY SQ Last administered on 04/13/19at 09:23; Start 04/11/19 at 09:00 Sodium Polystyrene Sulfonate (Kayexalate) 15 gm 1X ONCE PO Last administered on 04/11/19at 10:24; Start 04/11/19 at 09:00; Stop 04/11/19 at 09:01; Status DC Meclizine HCl (Antivert) 12.5 mg PRN Q6HRS PRN PO DIZZINESS Last administered on 04/11/19at 10:24; Start 04/11/19 at 09:30 Albuterol Sulfate (Ventolin Neb Soln) 2.5 mg PRN Q4HRS PRN NEB SHORTNESS OF BREATH; Start 04/11/19 at 10:45 Albuterol Sulfate (Ventolin Neb Soln) 2.5 mg 1X ONCE NEB Last administered on 04/11/19at 11:54; Start 04/11/19 at 11:00; Stop 04/11/19 at 11:01; Status DC Lactobacillus Rhamnosus (Culturelle) 1 cap BID PO Last administered on 04/13/19at 20:44; Start 04/11/19 at 12:00 Furosemide (Lasix) 40 mg 1X ONCE IVP Last administered on 04/11/19at 20:18; Start 04/11/19 at 19:00; Stop 04/11/19 at 19:01; Status DC Perflutren Protein Type A Microsphe (Optison) 0.66 mg 1X ONCE IV ; Start 04/12/19 at 10:00; Stop 04/12/19 at 10:01; Status DC Furosemide (Lasix) 40 mg 1X ONCE IVP Last administered on 04/12/19at 11:44; Start 04/12/19 at 10:45; Stop 04/12/19 at 10:49; Status DC Atenolol (Tenormin) 50 mg BID PO Last administered on 04/13/19at 20:44; Start 04/13/19 at 14:00 Morphine Sulfate (Morphine Sulfate) 1 mg PRN Q10MIN PRN IV SEVERE PAIN 7-10; Start 04/14/19 at 07:00; Stop 04/15/19 at 06:59 Ringer's Solution 1,000 ml @ 30 mls/hr Q24H IV ; Start 04/14/19 at 07:00; Stop 04/14/19 at 18:59 Hydromorphone HCl (Dilaudid) 0.5 mg PRN Q10MIN PRN IV SEV PAIN, Second choice; Start 04/14/19 at 07:00; Stop 04/15/19 at 06:59 Prochlorperazine Edisylate (Compazine) 5 mg PACU PRN PRN IV NAUSEA, MRX1; Start 04/14/19 at 07:00; Stop 04/15/19 at 06:59 Furosemide (Lasix) 40 mg 1X ONCE IVP Last administered on 04/13/19at 17:35; Start 04/13/19 at 17:00; Stop 04/13/19 at 17:01; Status DC Furosemide (Lasix) 40 mg DAILY PO ; Start 04/14/19 at 09:00 Atorvastatin Calcium (Lipitor) 20 mg QHS PO Last administered on 04/13/19at 20:44; Start 04/13/19 at 21:00 Insulin Human Lispro (HumaLOG) 3 units 1X ONCE SQ Last administered on 04/13/19at 20:44; Start 04/13/19 at 21:00; Stop 04/13/19 at 21:01; Status DC Active Scripts Active Reported Atenolol 50 Mg Tablet 1 Tab PO BID Vitals/I & O Vital Sign - Last 24 Hours 04/13/19 04/13/19 04/13/19 04/13/19 08:00 10:45 10:45 11:00 Temp 97.9 97.9 Pulse 86 Resp 16 16 16 B/P (MAP) 150/49 (82) Pulse Ox 95 O2 Delivery Nasal Cannula Room Air Room Air Nasal Cannula O2 Flow Rate 3.0 3.0 04/13/19 04/13/19 04/13/19 04/13/19 11:17 12:09 13:37 13:37 Pulse 86 Resp 16 18 16 B/P (MAP) 150/49 O2 Delivery Room Air Nasal Cannula Room Air O2 Flow Rate 3.0 04/13/19 04/13/19 04/13/19 04/13/19 15:00 15:09 19:00 20:15 Temp 97.7 98.1 97.7 98.1 Pulse 83 71 Resp 14 16 18 B/P (MAP) 158/72 (100) 148/82 (104) Pulse Ox 94 99 O2 Delivery Nasal Cannula Nasal Cannula Nasal Cannula Nasal Cannula O2 Flow Rate 5.0 3.0 3.0 3.0 04/13/19 04/13/19 04/14/19 04/14/19 20:44 23:00 02:38 02:54 Temp 97.7 98.1 97.7 98.1 Pulse 69 75 98 Resp 18 16 18 B/P (MAP) 161/80 157/76 (103) 133/73 (93) Pulse Ox 92 92 96 O2 Delivery Nasal Cannula Nasal Cannula Nasal Cannula O2 Flow Rate 3.0 3.0 3.0 04/14/19 04:25 Resp 18 Pulse Ox 96 O2 Delivery Nasal Cannula O2 Flow Rate 3.0 Intake and Output 04/13/19 04/13/19 04/14/19 15:00 23:00 07:00 Intake Total 100 ml 230 ml 400 ml Output Total 800 ml 1950 ml Balance 100 ml -570 ml -1550 ml FLORI BAIRES MD Apr 14, 2019 07:30
[2019-04-14] MEDS ORDERED: PROPOFOL 20 ML IV ONE (07:35)
[2019-04-14] MEDS ORDERED: DEXAMETHASONE SOD PHOS 4 MG/ML VIAL ONE (07:35)
[2019-04-14] MEDS ORDERED: ONDANSETRON PF 4 MG/2 ML VIAL. ONE (07:35)
[2019-04-14] MEDS ORDERED: LIDOCAINE 2% PF 5 ML VIAL. ONE (07:35)
[2019-04-14] MEDS ORDERED: SEVOFLURANE 61 TO 120 MINUTES. IH ONE (07:36)
[2019-04-14] MEDS: ATENOLOL 50 MG TABLET. PO SCH ×2 (09:00→21:22)
[2019-04-14] MEDS: GABAPENTIN 300 MG CAPSULE. PO SCH ×3 (09:00→21:21)
[2019-04-14] MEDS ORDERED: SEVOFLURANE 16 TO 30 MINUTES. IH ONE (09:22)
[2019-04-14] MEDS ORDERED: fentaNYL PF VIAL 100 MCG/2 ML VIAL ONE (09:33)
[2019-04-14] MEDS: HYDROmorphone 2 MG/ML VIAL IV PRN ×3 (09:40→10:06)
[2019-04-14] MEDS: LACTOBACILLUS RHAMNOSUS GG 1 CAPSULE. PO SCH ×2 (11:01→21:21)
[2019-04-14] MEDS: FUROSEMIDE 40 MG TABLET. PO SCH (11:02)
[2019-04-14] MEDS: INSULIN GLARGINE SYRINGE. SQ SCH ×2 (11:09→21:27)
--- NOTE | 2019-04-14 11:16 | PDOC4 ---
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 L97.524 * Non-pressure chronic ulcer of other part of right foot (plantar first metatarsophalangeal joint and third toe) with fat layer exposed L97.512 Procedure: * Left foot: partial excision third metatarsal bone, and associated debridement, selective excisional debridement surrounding necrotic tissue CPT 90773 * Right foot (plantar first metatarsophalangeal joint, distal third toe): Debridement with high-pressure water jet and sharp selective debridement of open wound of right foot and toes, debridement of fibrin, devitalized epidermis, exudate, devitalized dermis CPT 24187 Surgeon: Susana Sandoval MD Anesthesia: General EBL: 10 mL Specimens Obtained: deep cultures left foot, persistent purulent drainage Complications: none Drains: none Indications for Procedure: The patient is a 58-year-old with severe complications of diabetes who presented with a foul-smelling necrotic third toe and had left foot from urgent third toe amputation with wound left open. She has been treated with wound VAC and antibiotics in the meantime. She has persistent purulent drainage at the open wound of the left foot. In addition she has nonhealing chronic ulcers of the right foot at the metatarsophalangeal joint of the great toe and the the distal aspect of the third toe. I recommended further debridement of the left foot, and debridement of the right foot in the 2 regions noted. We discussed the potential risks of ongoing need for debridement and delayed closure, and perhaps need for higher level amputation. The patient and I discussed the risks, benefits and alternatives of surgery. All of her questions about surgery were answered and she desires to proceed. Procedure in Detail: The patient was identified in the preoperative holding area. The correct right foot and left foot were marked by me. The patient was taken to the operating room where general anesthesia was used. The patient was positioned supine on the operating table. She remains on scheduled antibiotics. A timeout procedure was performed. A tourniquet was applied to the upper left thigh but never inflated. Both feet were prepared with Betadine, and then sterile drapes were applied with a bilateral limb sheet. The right foot was debrided first. I did sharp excisional debridement of the plantar aspect of the great toe metatarsophalangeal joint where there is exposed fat. I remove the devitalized dermis and epidermis, and fibrin with a 10 blade scalpel and with a rongeurs. Similar selective debridement was performed of the third toe, removing the devitalized epidermis, the fibrin, and debriding the fibrin covering the subcutaneous fat. Both of these regions were then pressure washed with the [place] [employer] high pressure water jet machine maintenance repairer using saline. Next the left foot was examined. There is purulent drainage on the medial aspect of the open wound from the prior third toe with metatarsal amputation. Cultures were taken of this area. Her is exposed bone from the third metatarsal, which is in contact with the purulent drainage, and so I further resected the third metatarsal bone with a bone cutter, and removed some of the diaphysis of the third metatarsal so that there is no longer exposed bone in contact with the purulent material. I did sharp selective excisional debridement of the tissues around the second metatarsal head, and also removing a small amount of bone here. A rongeurs was used to for selective excisional debridement of devitalized deep tissue and purulent material. Next the [place] [employer] machine maintenance repairer was used, and copious saline irrigation was performed. Bovie electrocautery was used for hemostasis on the left foot. The wound was packed open with Kerlix. Sterile dressings were placed on the right foot and the left foot. Needle and sponge counts were correct. There were no apparent complications. I would consider an MRI of the left foot to further evaluate for deep osteomyelitis. I am hopeful that there is no additional osteomyelitis and that s econdary closure could be performed in the future. She will need further surgery on the left foot which is staged and planned. I would continue wound VAC treatments and antibiotics on the left foot in the meantime. Ongoing wound care for the right foot is also needed but without planned additional surgery. SUSANA SANDOVAL MD Apr 14, 2019 11:15
--- NOTE | 2019-04-14 11:43 | PDOC ---
Infectious Disease Note Subjective Subjective Better but right arm better. less pain. No N/V/D/SOA./rash/F Vital Sign Vital Signs Vital Signs Date Time Temp Pulse Resp B/P (MAP) Pulse Ox O2 Delivery O2 Flow Rate FiO2 04/14/19 10:45 65 107/44 (65) 95 Nasal Cannula 4.0 04/14/19 10:06 16 04/14/19 10:05 98.7 98.7 Physical Exam PHYSICAL EXAM CONSTITUTIONAL: She is in bed. She is morbidly obese. She is cooperative. She is in no acute distress. Looks much better HEENT: Pupils are equal and reactive. She has normal conjunctivae. Oral cavity, pharynx is clear. NECK: Supple, no JVD. LUNGS: Clear to auscultation bilaterally. Wa son CPAP HEART: S1, S2. ABDOMEN: Morbidly obese, soft, nontender, no guarding or rebound. EXTREMITIES: Without clubbing, cyanosis. Left foot wound with pus at base of wound. Right great toe plantar wound - dressed. She has a mild right heel ulcer as well. 3 rd r toe with dry ulcer less swelling and erythema SKIN: Skin is warm to touch without signs of rash. She has some yeast in her folds, also some yeast on her lower extremities. NEUROLOGIC: She is nonfocal, moves all extremities, answers questions. PSYCHIATRIC: Affect is appropriate IV: PICC RUE - clean Labs Lab Laboratory Tests Test 04/13/19 16:43 04/13/19 20:19 04/14/19 09:11 Glucose (Fingerstick) 236 mg/dL (70-99) 221 mg/dL (70-99) 130 mg/dL (70-99) Micro Microbiology 04/11/19 Anaerobic/Aerobic Culture, Resulted Pending 04/11/19 Anaerobic Culture Result 1 (DEANNE), Resulted Pending 04/11/19 Aerobic Culture - Preliminary, Resulted 04/11/19 Aerobic Culture Result 1 (DEANNE) - Preliminary, Resulted 04/11/19 Gram Stain - Final, Resulted 04/11/19 Gram Stain Result 1 (DEANNE) - Final, Resulted 04/11/19 Gram Stain Result 2 (DEANNE) - Final, Resulted 04/10/19 Blood Culture - Preliminary, Resulted NO GROWTH AFTER 4 DAYS Objective Assessment L 3 rd toe osteomyelitis - infection - despite amoxicillin/Clinda Left third toe amputation metatarsal, with toe, single 04/10 ALISIA Cephalexin allegy -swelling and throat closing leukocytosis - now s/p steroids prior to surgery Yeast skin Dm Right plantar wou Plan Plan of Care cont fluconazole/Meropenem/Dapto New cults 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 Sandoval - he will come by and eval later today F/u labs and cults - cult dated 04/11 likely from right foot plantar Wound care following D/w nursing KATHLEEN SHERMAN MD Apr 14, 2019 11:42
[2019-04-14] MEDS: HYDROcodone/APAP 5/325MG 1 TAB TABLET PO PRN (12:19)
[2019-04-14] MEDS: FLUCONAZOLE 200MG/100ML PREMIX 100 ML IV SCH (13:26)
--- NOTE | 2019-04-14 13:45 | RAD ---
MR#: [id number] Date of Study: 04/13/2019 Ordering Physician: CONNOR TINSLEY, Referring Physician: CONNOR TINSLEY, Tech: Yazan Ramirez MBA, RDMS, RVT, RDCS, RTR APPROVED REPORT Patient Location: IN-PATIENT Indications b/l foot wounds VELOCITY AND DOPPLER WAVEFORM ANALYSIS RIGHT cm/secWaveformSeverity LEFT cm/secWaveform Severity dCFA 123.0TriphasicdCFA 133.0Triphasic Prof Fem Art. 63.0BiphasicProf Fem Art. 73.0Biphasic Fem Art Prox. 116.0TriphasicFem Art Prox. 105.0Triphasic Fem Art Mid. 86.0TriphasicFem Art Mid. 112.0Triphasic Fem Art Dist. 76.0TriphasicFem Art Dist. 105.0Triphasic Pop Art(Fossa) 64.0TriphasicPop Art(AK) 104.0Triphasic EDUCATION DIRECTOR Prox. 99.0BiphasicPTA Prox. 125.0Monophasic EDUCATION DIRECTOR Dist. 87.0BiphasicPTA Dist. 127.0Monophasic REX Prox. 50.0BiphasicATA Prox. 129.0Monophasic DPA 104BiphasicDPA 140Monophasic Findings Overall peetr scale images demonstrate no significant obstructive disease. Normal velocities noted in the bilateral lower extremity vessels except as noted: Mild LLE velocity e levation, likely due to calcified vessels. Non-visualized peroneal artery on the left side Critical Notification Critical Value: No <Conclusion> 1. Probable mild to moderate LLE arterial disease, no high grade focal stenosis identified. 2. 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 Signed by : Montez Hu, Electronically Approved : 04/14/2019 13:45:29
[2019-04-14] MEDS: DAPTOMYCIN IV SCH (14:32)
[2019-04-14] MEDS: NORMAL SALINE IV SCH (14:32)
[2019-04-14] MEDS: ALBUTEROL SULFATE 2.5 MG/3 ML NEBU. NEB SCH ×2 (15:45→20:57)
[2019-04-14] MEDS: oxyCODONE/APAP 5/325 1 TAB TABLET PO PRN (20:32)
[2019-04-14] MEDS: GABAPENTIN 400 MG CAPSULE. PO SCH (21:00)
[2019-04-14] MEDS: ASPIRIN ENTERIC COATED 325 MG TABLET.DR. PO SCH (21:21)
[2019-04-14] MEDS: ATORVASTATIN CALCIUM 20 MG TABLET PO SCH (21:21)
[2019-04-15] MEDS: fentaNYL PF VIAL 100 MCG/2 ML VIAL IV PRN ×4 (01:54→20:54)
[2019-04-15 03:00] VITALS: BP 156/67
[2019-04-15 04:57] LABS: BASO % 0 % (0-3); EOS # 0.1 x10^3/uL (0.0-0.7); EOS % 1 % (0-3); HEMATOCRIT 34.1 % (36.0-47.0); HEMOGLOBIN 11.3 g/dL (12.0-15.5); LYMPH # 1.5 x10^3/uL (1.0-4.8); LYMPH % 14 % (24-48); MEAN CORPUSCULAR HEMOGLOBIN 29 pg (25-35); MEAN CORPUSCULAR HGB CONC 33 g/dL (31-37); MEAN CORPUSCULAR VOLUME 89 fL (79-100); MONO # 0.7 x10^3/uL (0.0-1.1); MONO % 7 % (0-9); NEUT # 8.4 x10^3/uL (1.8-7.7); NEUT % 79 % (31-73); PLATELET COUNT 321 x10^3/uL (140-400); RED BLOOD COUNT 3.85 x10^6/uL (3.50-5.40); WHITE BLOOD COUNT 10.7 x10^3/uL (4.0-11.0)
[2019-04-15 05:17] LABS: ALBUMIN 2.1 g/dL (3.4-5.0); ALBUMIN/GLOBULIN RATIO 0.5 (1.0-1.7); CALCIUM 9.2 mg/dL (8.5-10.1); CREATININE 0.7 mg/dL (0.6-1.0); GFR 85.9; POTASSIUM 5.3 mmol/L (3.5-5.1); TOTAL BILIRUBIN 0.4 mg/dL (0.2-1.0); TOTAL PROTEIN 6.7 g/dL (6.4-8.2)
[2019-04-15] MEDS: MEROPENEM 1 GM in IV NORMAL SALINE 100ML 100 ML IV SCH ×3 (05:59→21:57)
[2019-04-15] MEDS: ALBUTEROL SULFATE 2.5 MG/3 ML NEBU. NEB SCH ×4 (06:18→19:59)
[2019-04-15 07:00] VITALS: BP 136/58
--- NOTE | 2019-04-15 08:02 | PDOC ---
PROGRESS NOTES Chief Complaint Chief Complaint impression 1. LEft THIRD TOE Gangrene -s/p amputation 04/10 (POD # 2) 2. RT heel ulcer - wound care 3. OSteomyelitis - as per [place] xray - 4. DM with hgba1c 9.7 and neuropathy and target organ damage - hx osteo, partial amputation big toe 5. Obesity 6. HTN - controlled 7,. Lymphedema 8. POst op confusion, transient 9, POst op mild hyperkalemia 5.5 10. Post op ALISIA, VMN 11. developing congestive heart failure with diffuse pulmonary edema. Underlying infiltrate in the left lung base cannot excluded. 12. Left rotator cuff calcific tendinopathy. 13. severe protein-caloric malnutrition 14 PULMONARY HYPERTENSION 15. 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 L97.524 * Non-pressure chronic ulcer of other part of right foot (plantar first metatarsophalangeal joint and third toe) with fat layer exposed L97.512 Procedure: * Left foot: partial excision third metatarsal bone, and associated debridement, selective excisional debridement surrounding necrotic tissue CPT 23555 * Right foot (plantar first metatarsophalangeal joint, distal third toe): Debridement with high-pressure water jet and sharp selective debridement of open wound of right foot and toes, debridement of fibrin, devitalized epidermis, exudate, devitalized dermis CPT 47745 Surgeon: Neo Sandoval MD Anesthesia: General EBL: 10 mL Specimens Obtained: deep cultures left foot, persistent purulent drainage Complications: none Drains: none Indications for Procedure: The patient is a 58-year-old with severe complications of diabetes who presented with a foul-smelling necrotic third toe and had left foot from urgent third toe amputation with wound left open. She has been treated with wound VAC and antibiotics in the meantime. She has persistent purulent drainage at the open wound of the left foot. In addition she has nonhealing chronic ulcers of the right foot at the metatarsophalangeal joint of the great toe and the the distal aspect of the third toe 37 min pt exam, chart review, > 50% of time spent with exam, chart review, pt care coordination History of Present Illness History of Present Illness POD # 1 - some transient confusion last night- she thought she was in a hotel BS high! 300s HGba1c 9.7 WBC 12,7 ESR 105, platelets 317 hgb 12 K 5,5, creat 1,3 from 0.9 - on lasix 20 BID at home ALso requests her meclizine ON hefty doses insulin 27 units mealtimes and 70 qhs PLAN: STart lantus 25 qdaily first dose now AWAIT wound care re that RT heel ulcer and toe wound POst op care/labs PT.OT Self pay? IV abx per ID NO IVF for now re that creat kayexylate 15 x 1 re K 5.5 REcheck BMP tmr - if creat worse, then she agreed to IVF - she did not want to start iVF - afraid of lymphedema OK for home meclizine no lasix for now Vitals Vitals Vital Signs Date Time Temp Pulse Resp B/P (MAP) Pulse Ox O2 Delivery O2 Flow Rate FiO2 04/15/19 06:18 95 Nasal Cannula 3.0 04/15/19 03:52 20 04/15/19 03:00 98.6 61 156/67 (96) 98.6 Physical Exam Physical Exam CONSTITUTIONAL: She is in bed. She is morbidly obese. She is cooperative. She is in no acute distress. Looks much better HEENT: Pupils are equal and reactive. She has normal conjunctivae. Oral cavity, pharynx is clear. NECK: Supple, no JVD. LUNGS: Clear to auscultation bilaterally. Wa son CPAP HEART: S1, S2. ABDOMEN: Morbidly obese, soft, nontender, no guarding or rebound. EXTREMITIES: Without clubbing, cyanosis. Left foot wound with pus at base of wound. Right great toe plantar wound - dressed. She has a mild right heel ulcer as well. 3 rd r toe with dry ulcer less swelling and erythema SKIN: Skin is warm to touch without signs of rash. She has some yeast in her folds, also some yeast on her lower extremities. NEUROLOGIC: She is nonfocal, moves all extremities, answers questions. PSYCHIATRIC: Affect is appropriate IV: PICC RUE - clean General: Alert, Oriented X3, Cooperative, No acute distress, mild distress Heart: Regular rate, Normal S1, Normal S2, No murmurs Lungs: Clear Abdomen: Normal bowel sounds, Soft, No tenderness Extremities: No clubbing, No cyanosis, Other (left leg dressing, rt leg dressing, amputated toe wound vac) Skin: Other (left foot wound with wound vac and right foot wound) Labs LABS Laboratory Tests Test 04/14/19 09:11 04/14/19 12:02 04/14/19 17:00 04/14/19 20:41 Glucose (Fingerstick) 130 mg/dL (70-99) 214 mg/dL (70-99) 258 mg/dL (70-99) 232 mg/dL (70-99) Test 04/15/19 04:45 White Blood Count 10.7 x10^3/uL (4.0-11.0) Red Blood Count 3.85 x10^6/uL (3.50-5.40) Hemoglobin 11.3 g/dL (12.0-15.5) Hematocrit 34.1 % (36.0-47.0) Mean Corpuscular Volume 89 fL (79-100) Mean Corpuscular Hemoglobin 29 pg (25-35) Mean Corpuscular Hemoglobin Concent 33 g/dL (31-37) Red Cell Distribution Width 17.0 % (11.5-14.5) Platelet Count 321 x10^3/uL (140-400) Neutrophils (%) (Auto) 79 % (31-73) Lymphocytes (%) (Auto) 14 % (24-48) Monocytes (%) (Auto) 7 % (0-9) Eosinophils (%) (Auto) 1 % (0-3) Basophils (%) (Auto) 0 % (0-3) Neutrophils # (Auto) 8.4 x10^3/uL (1.8-7.7) Lymphocytes # (Auto) 1.5 x10^3/uL (1.0-4.8) Monocytes # (Auto) 0.7 x10^3/uL (0.0-1.1) Eosinophils # (Auto) 0.1 x10^3/uL (0.0-0.7) Basophils # (Auto) 0.0 x10^3/uL (0.0-0.2) Sodium Level 141 mmol/L (136-145) Potassium Level 5.3 mmol/L (3.5-5.1) Chloride Level 101 mmol/L (98-107) Carbon Dioxide Level 38 mmol/L (21-32) Anion Gap 2 (6-14) Blood Urea Nitrogen 22 mg/dL (7-20) Creatinine 0.7 mg/dL (0.6-1.0) Estimated GFR (Cockcroft-Gault) 85.9 BUN/Creatinine Ratio 31 (6-20) Glucose Level 222 mg/dL (70-99) Calcium Level 9.2 mg/dL (8.5-10.1) Total Bilirubin 0.4 mg/dL (0.2-1.0) Aspartate Amino Transf (AST/SGOT) 6 U/L (15-37) Alanine Aminotransferase (ALT/SGPT) 18 U/L (14-59) Alkaline Phosphatase 137 U/L (46-116) Total Protein 6.7 g/dL (6.4-8.2) Albumin 2.1 g/dL (3.4-5.0) Albumin/Globulin Ratio 0.5 (1.0-1.7) Comment Review of Relevant I have reviewed the following items adrienne (where applicable) has been applied. Labs Laboratory Tests Test 04/13/19 11:17 04/13/19 16:43 04/13/19 20:19 04/14/19 09:11 Glucose (Fingerstick) 181 mg/dL (70-99) 236 mg/dL (70-99) 221 mg/dL (70-99) 130 mg/dL (70-99) Test 04/14/19 12:02 04/14/19 17:00 04/14/19 20:41 04/15/19 04:45 Glucose (Fingerstick) 214 mg/dL (70-99) 258 mg/dL (70-99) 232 mg/dL (70-99) White Blood Count 10.7 x10^3/uL (4.0-11.0) Red Blood Count 3.85 x10^6/uL (3.50-5.40) Hemoglobin 11.3 g/dL (12.0-15.5) Hematocrit 34.1 % (36.0-47.0) Mean Corpuscular Volume 89 fL (79-100) Mean Corpuscular Hemoglobin 29 pg (25-35) Mean Corpuscular Hemoglobin Concent 33 g/dL (31-37) Red Cell Distribution Width 17.0 % (11.5-14.5) Platelet Count 321 x10^3/uL (140-400) Neutrophils (%) (Auto) 79 % (31-73) Lymphocytes (%) (Auto) 14 % (24-48) Monocytes (%) (Auto) 7 % (0-9) Eosinophils (%) (Auto) 1 % (0-3) Basophils (%) (Auto) 0 % (0-3) Neutrophils # (Auto) 8.4 x10^3/uL (1.8-7.7) Lymphocytes # (Auto) 1.5 x10^3/uL (1.0-4.8) Monocytes # (Auto) 0.7 x10^3/uL (0.0-1.1) Eosinophils # (Auto) 0.1 x10^3/uL (0.0-0.7) Basophils # (Auto) 0.0 x10^3/uL (0.0-0.2) Sodium Level 141 mmol/L (136-145) Potassium Level 5.3 mmol/L (3.5-5.1) Chloride Level 101 mmol/L (98-107) Carbon Dioxide Level 38 mmol/L (21-32) Anion Gap 2 (6-14) Blood Urea Nitrogen 22 mg/dL (7-20) Creatinine 0.7 mg/dL (0.6-1.0) Estimated GFR (Cockcroft-Gault) 85.9 BUN/Creatinine Ratio 31 (6-20) Glucose Level 222 mg/dL (70-99) Calcium Level 9.2 mg/dL (8.5-10.1) Total Bilirubin 0.4 mg/dL (0.2-1.0) Aspartate Amino Transf (AST/SGOT) 6 U/L (15-37) Alanine Aminotransferase (ALT/SGPT) 18 U/L (14-59) Alkaline Phosphatase 137 U/L (46-116) Total Protein 6.7 g/dL (6.4-8.2) Albumin 2.1 g/dL (3.4-5.0) Albumin/Globulin Ratio 0.5 (1.0-1.7) Laboratory Tests Test 04/14/19 09:11 04/14/19 12:02 04/14/19 17:00 04/14/19 20:41 Glucose (Fingerstick) 130 mg/dL (70-99) 214 mg/dL (70-99) 258 mg/dL (70-99) 232 mg/dL (70-99) Test 04/15/19 04:45 White Blood Count 10.7 x10^3/uL (4.0-11.0) Red Blood Count 3.85 x10^6/uL (3.50-5.40) Hemoglobin 11.3 g/dL (12.0-15.5) Hematocrit 34.1 % (36.0-47.0) Mean Corpuscular Volume 89 fL (79-100) Mean Corpuscular Hemoglobin 29 pg (25-35) Mean Corpuscular Hemoglobin Concent 33 g/dL (31-37) Red Cell Distribution Width 17.0 % (11.5-14.5) Platelet Count 321 x10^3/uL (140-400) Neutrophils (%) (Auto) 79 % (31-73) Lymphocytes (%) (Auto) 14 % (24-48) Monocytes (%) (Auto) 7 % (0-9) Eosinophils (%) (Auto) 1 % (0-3) Basophils (%) (Auto) 0 % (0-3) Neutrophils # (Auto) 8.4 x10^3/uL (1.8-7.7) Lymphocytes # (Auto) 1.5 x10^3/uL (1.0-4.8) Monocytes # (Auto) 0.7 x10^3/uL (0.0-1.1) Eosinophils # (Auto) 0.1 x10^3/uL (0.0-0.7) Basophils # (Auto) 0.0 x10^3/uL (0.0-0.2) Sodium Level 141 mmol/L (136-145) Potassium Level 5.3 mmol/L (3.5-5.1) Chloride Level 101 mmol/L (98-107) Carbon Dioxide Level 38 mmol/L (21-32) Anion Gap 2 (6-14) Blood Urea Nitrogen 22 mg/dL (7-20) Creatinine 0.7 mg/dL (0.6-1.0) Estimated GFR (Cockcroft-Gault) 85.9 BUN/Creatinine Ratio 31 (6-20) Glucose Level 222 mg/dL (70-99) Calcium Level 9.2 mg/dL (8.5-10.1) Total Bilirubin 0.4 mg/dL (0.2-1.0) Aspartate Amino Transf (AST/SGOT) 6 U/L (15-37) Alanine Aminotransferase (ALT/SGPT) 18 U/L (14-59) Alkaline Phosphatase 137 U/L (46-116) Total Protein 6.7 g/dL (6.4-8.2) Albumin 2.1 g/dL (3.4-5.0) Albumin/Globulin Ratio 0.5 (1.0-1.7) Microbiology 04/13/19 Anaerobic/Aerobic Culture, Resulted Pending 04/13/19 Anaerobic Culture Result 1 (DEANNE), Resulted Pending 04/13/19 Aerobic Culture, Resulted Pending 04/13/19 Aerobic Culture Result 1 (DEANNE), Resulted Pending 04/13/19 Gram Stain - Final, Resulted 04/13/19 Gram Stain Result 1 (DEANNE) - Final, Resulted 04/13/19 Gram Stain Result 2 (DEANNE) - Final, Resulted 04/10/19 Blood Culture - Preliminary, Resulted NO GROWTH AFTER 4 DAYS Medications Current Medications Vancomycin HCl (Vanco Per Pharmacy) 1 each PRN DAILY PRN MC SEE COMMENTS Last administered on 04/10/19at 03:41; Start 04/09/19 at 22:30; Stop 04/10/19 at 12:36; Status DC Piperacillin Sod/ Tazobactam Sod (Zosyn Per Pharmacy) 1 each PRN DAILY PRN MC SEE COMMENTS; Start 04/09/19 at 22:30; Stop 04/10/19 at 12:35; Status DC Sodium Chloride 1,000 ml @ 100 mls/hr Q10H IV Last administered on 04/11/19at 05:23; Start 04/09/19 at 23:00; Stop 04/11/19 at 09:26; Status DC Acetaminophen/ Hydrocodone Bitart (Lortab 5/325) 1 tab PRN Q4HRS PRN PO MODERATE PAIN 4-6 Last administered on 04/14/19at 12:19; Start 04/09/19 at 22:30 Acetaminophen/ Hydrocodone Bitart (Lortab 5/325) 2 tab PRN Q4HRS PRN PO SEVERE PAIN 7-10 Last administered on 04/13/19at 10:45; Start 04/09/19 at 22:30 Insulin Glargine (Lantus Syringe) 70 unit QHS SQ Last administered on 04/14/19at 21:29; Start 04/09/19 at 23:00 Insulin Human Lispro (HumaLOG) 20 units 1X ONCE SQ Last administered on 04/09/19at 23:02; Start 04/09/19 at 23:00; Stop 04/09/19 at 23:01; Status DC Insulin Human Lispro (HumaLOG) 0-7 UNITS TIDWMEALS SQ ; Start 04/10/19 at 08:00; Stop 04/10/19 at 08:08; Status DC Dextrose (Dextrose 50%-Water Syringe) 12.5 gm PRN Q15MIN PRN IV SEE COMMENTS; Start 04/09/19 at 22:30; Status Cancel Dextrose 250 ml PRN Q15MIN PRN IV SEE COMMENTS; Start 04/09/19 at 22:30; Status Cancel Insulin Human Lispro (HumaLOG) 26 units TIDAC SQ Last administered on 04/14/19at 17:14; Start 04/10/19 at 07:30 Piperacillin Sod/ Tazobactam Sod 3.375 gm/Sodium Chloride 50 ml @ 100 mls/hr Q6HRS IV Last administered on 04/10/19at 11:35; Start 04/10/19 at 00:00; Stop 04/10/19 at 12:35; Status DC Gabapentin (Neurontin) 900 mg BID92 PO Last administered on 04/14/19at 21:29; Start 04/10/19 at 09:00 Gabapentin (Neurontin) 1,200 mg HS PO Last administered on 04/14/19at 21:29; Start 04/10/19 at 21:00 Atenolol (Tenormin) 40 mg DAILY PO ; Start 04/10/19 at 09:00; Status UNV Vancomycin HCl 2 gm/Sodium Chloride 500 ml @ 250 mls/hr Q12H IV Last administered on 04/10/19at 05:20; Start 04/10/19 at 05:00; Stop 04/10/19 at 12:36; Status DC Vancomycin HCl (Vancomycin Trough Level) 1 each 1X ONCE MC ; Start 04/11/19 at 04:30; Stop 04/11/19 at 04:31; Status Cancel Insulin Human Lispro (HumaLOG) 0-9 UNITS TIDWMEALS SQ Last administered on 04/14/19at 17:14; Start 04/10/19 at 12:00 Dextrose (Dextrose 50%-Water Syringe) 12.5 gm PRN Q15MIN PRN IV SEE COMMENTS; Start 04/10/19 at 08:15 Dextrose 250 ml PRN Q15MIN PRN IV SEE COMMENTS; Start 04/10/19 at 08:15 Acetaminophen (Tylenol) 500 mg PRN Q6HRS PRN PO MILD PAIN / TEMP Last administered on 04/12/19at 13:04; Start 04/10/19 at 08:15 Ondansetron HCl (Zofran) 4 mg PRN Q6HRS PRN IV NAUSEA/VOMITING Last administered on 04/13/19at 12:24; Start 04/10/19 at 08:15 Fentanyl Citrate (Fentanyl 2ml Vial) 50 mcg PRN Q2HR PRN IV PAIN Last administered on 04/15/19at 01:54; Start 04/10/19 at 08:15 Sodium Chloride ([place] Saline Nasal) 1 nadeem PRN Q2HRS PRN NS NASAL CONGESTION Last administered on 04/10/19at 15:54; Start 04/10/19 at 11:45 Fluconazole/ Sodium Chloride 100 ml @ 100 mls/hr Q24H IV Last administered on 04/14/19at 13:28; Start 04/10/19 at 13:00 Meropenem 1 gm/ Sodium Chloride 100 ml @ 200 mls/hr Q8HRS IV Last administered on 04/15/19at 05:59; Start 04/10/19 at 14:00 Daptomycin 900 mg/ Sodium Chloride 50 ml @ 100 mls/hr Q24H IV Last administered on 04/14/19at 14:33; Start 04/10/19 at 13:00 Fentanyl Citrate (Fentanyl 2ml Vial) 25 mcg PRN Q5MIN PRN IV MILD PAIN 1-3; Start 04/10/19 at 13:15; Stop 04/11/19 at 11:49; Status DC Fentanyl Citrate (Fentanyl 2ml Vial) 50 mcg PRN Q5MIN PRN IV MODERATE TO SEVERE PAIN; Start 04/10/19 at 13:15; Stop 04/11/19 at 11:49; Status DC Morphine Sulfate (Morphine Sulfate) 1 mg PRN Q10MIN PRN IV SEVERE PAIN 7-10; Start 04/10/19 at 13:15; Stop 04/11/19 at 11:50; Status DC Ringer's Solution 1,000 ml @ 30 mls/hr Q24H IV ; Start 04/10/19 at 13:14; Stop 04/11/19 at 01:13; Status DC Hydromorphone HCl (Dilaudid) 0.5 mg PRN Q10MIN PRN IV SEV PAIN, Second choice; Start 04/10/19 at 13:15; Stop 04/11/19 at 11:50; Status DC Prochlorperazine Edisylate (Compazine) 5 mg PACU PRN PRN IV NAUSEA, MRX1; Start 04/10/19 at 13:15; Stop 04/11/19 at 11:50; Status DC Fentanyl Citrate (Fentanyl 2ml Vial) 100 mcg STK-MED ONCE .ROUTE ; Start 04/10/19 at 13:20; Stop 04/10/19 at 13:21; Status DC Sevoflurane (Ultane) 30 ml STK-MED ONCE IH ; Start 04/10/19 at 13:20; Stop 04/10/19 at 13:21; Status DC Propofol 20 ml @ As Directed STK-MED ONCE IV ; Start 04/10/19 at 13:20; Stop 04/10/19 at 13:21; Status DC Dexamethasone Sodium Phosphate (Decadron) 4 mg STK-MED ONCE .ROUTE ; Start 04/10/19 at 13:21; Stop 04/10/19 at 13:21; Status DC Lidocaine HCl (Lidocaine Pf 2% Vial) 5 ml STK-MED ONCE .ROUTE ; Start 04/10/19 at 13:21; Stop 04/10/19 at 13:21; Status DC Ondansetron HCl (Zofran) 4 mg STK-MED ONCE .ROUTE ; Start 04/10/19 at 13:21; Stop 04/10/19 at 13:21; Status DC Phenylephrine HCl (PHENYLEPHRINE in 0.9% NACL PF) 1 mg STK-MED ONCE IV ; Start 04/10/19 at 14:27; Stop 04/10/19 at 14:27; Status DC Aspirin (Ecotrin) 325 mg QHS PO Last administered on 04/14/19at 21:29; Start 04/10/19 at 21:00 Oxycodone/ Acetaminophen (Percocet 5/325) 1 tab PRN Q4HRS PRN PO MODERATE PAIN, LAST OPTION Last administered on 04/14/19at 15:41; Start 04/10/19 at 15:15 Oxycodone/ Acetaminophen (Percocet 5/325) 2 tab PRN Q4HRS PRN PO SEVERE PAIN, LAST OPTION Last administered on 04/14/19at 20:33; Start 04/10/19 at 15:30 Insulin Glargine (Lantus Syringe) 30 unit DAILY SQ Last administered on 04/14/19at 11:09; Start 04/11/19 at 09:00 Sodium Polystyrene Sulfonate (Kayexalate) 15 gm 1X ONCE PO Last administered on 04/11/19at 10:24; Start 04/11/19 at 09:00; Stop 04/11/19 at 09:01; Status DC Meclizine HCl (Antivert) 12.5 mg PRN Q6HRS PRN PO DIZZINESS Last administered on 04/11/19at 10:24; Start 04/11/19 at 09:30 Albuterol Sulfate (Ventolin Neb Soln) 2.5 mg PRN Q4HRS PRN NEB SHORTNESS OF BREATH Last administered on 04/14/19at 15:30; Start 04/11/19 at 10:45; Stop at 15:46; Status DC Albuterol Sulfate (Ventolin Neb Soln) 2.5 mg 1X ONCE NEB Last administered on 04/11/19at 11:54; Start 04/11/19 at 11:00; Stop 04/11/19 at 11:01; Status DC Lactobacillus Rhamnosus (Culturelle) 1 cap BID PO Last administered on 04/14/19at 21:29; Start 04/11/19 at 12:00 Furosemide (Lasix) 40 mg 1X ONCE IVP Last administered on 04/11/19at 20:18; Start 04/11/19 at 19:00; Stop 04/11/19 at 19:01; Status DC Perflutren Protein Type A Microsphe (Optison) 0.66 mg 1X ONCE IV ; Start 03/25 04/12 at 10:00; Stop 04/12/19 at 10:01; Status DC Furosemide (Lasix) 40 mg 1X ONCE IVP Last administered on 04/12/19at 11:44; Start 04/12/19 at 10:45; Stop 04/12/19 at 10:49; Status DC Atenolol (Tenormin) 50 mg BID PO Last administered on 04/14/19at 21:29; Start 04/13/19 at 14:00 Morphine Sulfate (Morphine Sulfate) 1 mg PRN Q10MIN PRN IV SEVERE PAIN 7-10; Start 04/14/19 at 07:00; Stop 04/15/19 at 06:59; Status DC Ringer's Solution 1,000 ml @ 30 mls/hr Q24H IV ; Start 04/14/19 at 07:00; Stop 04/14/19 at 18:59; Status DC Hydromorphone HCl (Dilaudid) 0.5 mg PRN Q10MIN PRN IV SEV PAIN, Second choice; Start 04/14/19 at 07:00; Stop 04/15/19 at 06:59; Status DC Prochlorperazine Edisylate (Compazine) 5 mg PACU PRN PRN IV NAUSEA, MRX1; Start 04/14/19 at 07:00; Stop 04/15/19 at 06:59; Status DC Furosemide (Lasix) 40 mg 1X ONCE IVP Last administered on 04/13/19at 17:35; Start 04/13/19 at 17:00; Stop 04/13/19 at 17:01; Status DC Furosemide (Lasix) 40 mg DAILY PO Last administered on 04/14/19at 11:09; Start 04/14/19 at 09:00 Atorvastatin Calcium (Lipitor) 20 mg QHS PO Last administered on 04/14/19at 21:29; Start 04/13/19 at 21:00 Insulin Human Lispro (HumaLOG) 3 units 1X ONCE SQ Last administered on 04/13/19at 20:44; Start 04/13/19 at 21:00; Stop 04/13/19 at 21:01; Status DC Propofol 20 ml @ As Directed STK-MED ONCE IV ; Start 04/14/19 at 07:35; Stop 04/14/19 at 07:36; Status DC Dexamethasone Sodium Phosphate (Decadron) 4 mg STK-MED ONCE .ROUTE ; Start 04/14/19 at 07:35; Stop 04/14/19 at 07:36; Status DC Lidocaine HCl (Lidocaine Pf 2% Vial) 5 ml STK-MED ONCE .ROUTE ; Start 04/14/19 at 07:35; Stop 04/14/19 at 07:36; Status DC Ondansetron HCl (Zofran) 4 mg STK-MED ONCE .ROUTE ; Start 04/14/19 at 07:35; Stop 04/14/19 at 07:36; Status DC Sevoflurane (Ultane) 60 ml STK-MED ONCE IH ; Start 04/14/19 at 07:36; Stop 04/14/19 at 07:36; Status DC Sevoflurane (Ultane) 15 ml STK-MED ONCE IH ; Start 04/14/19 at 09:22; Stop 04/14/19 at 09:23; Status DC Morphine Sulfate (Morphine Sulfate) 1 mg PRN Q10MIN PRN IV SEVERE PAIN 7-10; Start 04/14/19 at 09:45; Stop 04/14/19 at 20:00; Status DC Ringer's Solution 1,000 ml @ 30 mls/hr Q24H IV ; Start 04/14/19 at 09:32; Stop 04/14/19 at 21:31; Status DC Hydromorphone HCl (Dilaudid) 0.5 mg PRN Q10MIN PRN IV SEV PAIN, Second choice Last administered on 04/14/19at 10:06; Start 04/14/19 at 09:45; Stop 04/14/19 at 20:00; Status DC Prochlorperazine Edisylate (Compazine) 5 mg PACU PRN PRN IV NAUSEA, MRX1; Start 04/14/19 at 09:45; Stop 04/14/19 at 20:00; Status DC Fentanyl Citrate (Fentanyl 2ml Vial) 100 mcg STK-MED ONCE .ROUTE ; Start 04/14/19 at 09:33; Stop 04/14/19 at 09:33; Status DC Albuterol Sulfate (Ventolin Neb Soln) 2.5 mg RTQID NEB Last administered on 04/15/19at 06:18; Start 04/14/19 at 15:45 Active Scripts Active Reported Atenolol 50 Mg Tablet 1 Tab PO BID Vitals/I & O Vital Sign - Last 24 Hours 04/14/19 04/14/19 04/14/19 04/14/19 09:05 09:20 09:35 09:40 Temp 99.1 99.1 Pulse 60 60 60 Resp 16 16 16 16 B/P (MAP) 114/55 94/42 92/45 Pulse Ox 97 97 92 O2 Delivery Simple Mask Nasal Cannula Nasal Cannula Nasal Cannula O2 Flow Rate 6 2 2 04/14/19 04/14/19 04/14/19 04/14/19 09:50 09:57 10:05 10:06 Temp 98.7 98.7 Pulse 60 63 Resp 16 16 16 16 B/P (MAP) 104/55 107/55 Pulse Ox 92 92 92 93 O2 Delivery Nasal Cannula Nasal Cannula Nasal Cannula Nasal Cannula O2 Flow Rate 2 2.0 2 2.0 04/14/19 04/14/19 04/14/19 04/14/19 10:35 10:45 11:00 11:15 Pulse 65 65 68 64 B/P (MAP) 132/46 (74) 107/44 (65) 109/49 (69) 96/47 (63) Pulse Ox 90 95 88 90 O2 Delivery Nasal Cannula Nasal Cannula Nasal Cannula Room Air O2 Flow Rate 4.0 4.0 4.0 4.0 04/14/19 04/14/19 04/14/19 04/14/19 11:30 12:19 12:29 12:30 Pulse 67 69 Resp 16 16 B/P (MAP) 118/57 (77) 115/91 (99) Pulse Ox 92 92 92 O2 Delivery Nasal Cannula Nasal Cannula Nasal Cannula Nasal Cannula O2 Flow Rate 4.0 2.0 5.0 4.0 04/14/19 04/14/19 04/14/19 04/14/19 13:00 13:31 14:00 14:33 Pulse 70 69 Resp 16 16 B/P (MAP) 107/62 (77) 120/52 (74) Pulse Ox 93 93 O2 Delivery Nasal Cannula Nasal Cannula Nasal Cannula Room Air O2 Flow Rate 4.0 3.0 4.0 04/14/19 04/14/19 04/14/19 04/14/19 15:00 15:30 15:41 17:59 Pulse 68 Resp 18 18 B/P (MAP) 118/52 (74) Pulse Ox 96 92 O2 Delivery Nasal Cannula Nasal Cannula Nasal Cannula Nasal Cannula O2 Flow Rate 4.0 3.0 3.0 3.0 04/14/19 04/14/19 04/14/19 04/14/19 17:59 19:00 19:16 19:45 Temp 97.3 97.3 Pulse 71 Resp 18 18 18 B/P (MAP) 150/67 (94) Pulse Ox 95 O2 Delivery Nasal Cannula Nasal Cannula Nasal Cannula Nasal Cannula O2 Flow Rate 3.0 4.0 3.0 3.0 04/14/19 04/14/19 04/14/19 04/14/19 20:33 20:59 21:29 23:00 Temp 97.8 97.8 Pulse 71 61 Resp 20 18 B/P (MAP) 150/67 147/56 (86) Pulse Ox 94 94 O2 Delivery Nasal Cannula Nasal Cannula O2 Flow Rate 3.0 3.0 04/14/19 04/14/19 04/15/19 04/15/19 23:07 23:07 01:54 03:00 Temp 98.6 98.6 Pulse 61 Resp 20 20 20 20 B/P (MAP) 156/67 (96) Pulse Ox 94 O2 Delivery Nasal Cannula Nasal Cannula Nasal Cannula Nasal Cannula O2 Flow Rate 3.0 3.0 3.0 3.0 04/15/19 04/15/19 03:52 06:18 Resp 20 Pulse Ox 95 O2 Delivery Nasal Cannula Nasal Cannula O2 Flow Rate 3.0 3.0 Intake and Output 04/14/19 04/14/19 04/15/19 15:00 23:00 07:00 Intake Total 220 ml 400 ml 720 ml Output Total 1600 ml Balance 220 ml 400 ml -880 ml FLORI BAIRES MD Apr 15, 2019 08:02
[2019-04-15] MEDS: INSULIN LISPRO 300 UNITS/3 ML VIAL. SQ SCH ×6 (08:15→17:08)
[2019-04-15] MEDS: FUROSEMIDE 40 MG TABLET. PO SCH (09:45)
[2019-04-15] MEDS: ATENOLOL 50 MG TABLET. PO SCH ×2 (09:45→20:55)
[2019-04-15] MEDS: HYDROcodone/APAP 5/325MG 1 TAB TABLET PO PRN (09:46)
[2019-04-15] MEDS: INSULIN GLARGINE SYRINGE. SQ SCH ×2 (09:55→21:10)
[2019-04-15] MEDS: LACTOBACILLUS RHAMNOSUS GG 1 CAPSULE. PO SCH ×2 (09:56→20:55)
--- NOTE | 2019-04-15 10:25 | PDOC ---
Infectious Disease Note Subjective Subjective Not happy with food choices, otherwise doing alright Denies F/C/S/N/V/D/SOA ROS ROS per HPI Vital Sign Vital Signs Vital Signs Date Time Temp Pulse Resp B/P (MAP) Pulse Ox O2 Delivery O2 Flow Rate FiO2 04/15/19 10:03 18 Nasal Cannula 3.0 04/15/19 09:46 77 136/58 04/15/19 07:00 97.8 95 97.8 Physical Exam PHYSICAL EXAM GENNERAL: Propped up in bed, alert, NAD HEENT: Oral cavity, pharynx is clear. NECK: Supple LUNGS: Clear to auscultation bilaterally HEART: S1, S2. ABDOMEN: Morbidly obese, soft, nontender EXTREMITIES: Foot wounds bilaterally, dressings in place. SKIN: warm to touch NEUROLOGIC: Nonfocal. [facility] clean Labs Lab Laboratory Tests Test 04/14/19 12:02 04/14/19 17:00 04/14/19 20:41 04/15/19 04:45 Glucose (Fingerstick) 214 mg/dL (70-99) 258 mg/dL (70-99) 232 mg/dL (70-99) White Blood Count 10.7 x10^3/uL (4.0-11.0) Red Blood Count 3.85 x10^6/uL (3.50-5.40) Hemoglobin 11.3 g/dL (12.0-15.5) Hematocrit 34.1 % (36.0-47.0) Mean Corpuscular Volume 89 fL (79-100) Mean Corpuscular Hemoglobin 29 pg (25-35) Mean Corpuscular Hemoglobin Concent 33 g/dL (31-37) Red Cell Distribution Width 17.0 % (11.5-14.5) Platelet Count 321 x10^3/uL (140-400) Neutrophils (%) (Auto) 79 % (31-73) Lymphocytes (%) (Auto) 14 % (24-48) Monocytes (%) (Auto) 7 % (0-9) Eosinophils (%) (Auto) 1 % (0-3) Basophils (%) (Auto) 0 % (0-3) Neutrophils # (Auto) 8.4 x10^3/uL (1.8-7.7) Lymphocytes # (Auto) 1.5 x10^3/uL (1.0-4.8) Monocytes # (Auto) 0.7 x10^3/uL (0.0-1.1) Eosinophils # (Auto) 0.1 x10^3/uL (0.0-0.7) Basophils # (Auto) 0.0 x10^3/uL (0.0-0.2) Sodium Level 141 mmol/L (136-145) Potassium Level 5.3 mmol/L (3.5-5.1) Chloride Level 101 mmol/L (98-107) Carbon Dioxide Level 38 mmol/L (21-32) Anion Gap 2 (6-14) Blood Urea Nitrogen 22 mg/dL (7-20) Creatinine 0.7 mg/dL (0.6-1.0) Estimated GFR (Cockcroft-Gault) 85.9 BUN/Creatinine Ratio 31 (6-20) Glucose Level 222 mg/dL (70-99) Calcium Level 9.2 mg/dL (8.5-10.1) Total Bilirubin 0.4 mg/dL (0.2-1.0) Aspartate Amino Transf (AST/SGOT) 6 U/L (15-37) Alanine Aminotransferase (ALT/SGPT) 18 U/L (14-59) Alkaline Phosphatase 137 U/L (46-116) Total Protein 6.7 g/dL (6.4-8.2) Albumin 2.1 g/dL (3.4-5.0) Albumin/Globulin Ratio 0.5 (1.0-1.7) Test 04/15/19 07:52 Glucose (Fingerstick) 215 mg/dL (70-99) Micro Objective Assessment 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 s/p amputation, 04/10, then partial excision MT and excisional debridement surrounding necrotic tissue, 04/14 ALISIA Cephalexin allergy -swelling and throat closing Leukocytosis - now s/p steroids prior to surgery, improved Yeast skin Dm Right plantar wound s/p debridement devitalized dermis, 04/14 Plan Plan of Care Dapto, meropenem and fluconazole Monitor for abx toxicities/side effects Probiotics Cultures neg so far Wound care as directed CK in am Attending Co-Sign The patient was seen and interviewed as well as examined at the bedside. The chart was reviewed. The case was discussed. Agree with the plan of care. BRISA LUCIA APRN Apr 15, 2019 10:25 KATHLEEN SHERMAN MD Apr 15, 2019 11:01
[2019-04-15 11:00] VITALS: BP 150/71
[2019-04-15] MEDS: FLUCONAZOLE 200MG/100ML PREMIX 100 ML IV SCH (13:05)
[2019-04-15] MEDS: NORMAL SALINE IV SCH (13:53)
[2019-04-15] MEDS: DAPTOMYCIN IV SCH (13:53)
[2019-04-15] MEDS: GABAPENTIN 300 MG CAPSULE. PO SCH (13:58)
[2019-04-15 15:00] VITALS: BP 136/50
--- NOTE | 2019-04-15 16:19 | PDOC ---
PROGRESS NOTES Subjective Subjective She feels well. She showed me photos on her phone of her most recent left foot dressing change. There does not seem to be further purulent drainage. We discussed the plan. Objective Vital Signs Vital Signs Date Time Temp Pulse Resp B/P (MAP) Pulse Ox O2 Delivery O2 Flow Rate FiO2 04/15/19 15:40 18 Nasal Cannula 3.0 04/15/19 15:00 98.1 56 136/50 (78) 94 98.1 Physical Exam The left foot dressing is dry. The right foot dressing is dry. Labs Laboratory Tests Test 04/13/19 16:43 04/13/19 20:19 04/14/19 09:11 04/14/19 12:02 Glucose (Fingerstick) 236 mg/dL (70-99) 221 mg/dL (70-99) 130 mg/dL (70-99) 214 mg/dL (70-99) Test 04/14/19 17:00 04/14/19 20:41 04/15/19 04:45 04/15/19 07:52 Glucose (Fingerstick) 258 mg/dL (70-99) 232 mg/dL (70-99) 215 mg/dL (70-99) White Blood Count 10.7 x10^3/uL (4.0-11.0) Red Blood Count 3.85 x10^6/uL (3.50-5.40) Hemoglobin 11.3 g/dL (12.0-15.5) Hematocrit 34.1 % (36.0-47.0) Mean Corpuscular Volume 89 fL (79-100) Mean Corpuscular Hemoglobin 29 pg (25-35) Mean Corpuscular Hemoglobin Concent 33 g/dL (31-37) Red Cell Distribution Width 17.0 % (11.5-14.5) Platelet Count 321 x10^3/uL (140-400) Neutrophils (%) (Auto) 79 % (31-73) Lymphocytes (%) (Auto) 14 % (24-48) Monocytes (%) (Auto) 7 % (0-9) Eosinophils (%) (Auto) 1 % (0-3) Basophils (%) (Auto) 0 % (0-3) Neutrophils # (Auto) 8.4 x10^3/uL (1.8-7.7) Lymphocytes # (Auto) 1.5 x10^3/uL (1.0-4.8) Monocytes # (Auto) 0.7 x10^3/uL (0.0-1.1) Eosinophils # (Auto) 0.1 x10^3/uL (0.0-0.7) Basophils # (Auto) 0.0 x10^3/uL (0.0-0.2) Sodium Level 141 mmol/L (136-145) Potassium Level 5.3 mmol/L (3.5-5.1) Chloride Level 101 mmol/L (98-107) Carbon Dioxide Level 38 mmol/L (21-32) Anion Gap 2 (6-14) Blood Urea Nitrogen 22 mg/dL (7-20) Creatinine 0.7 mg/dL (0.6-1.0) Estimated GFR (Cockcroft-Gault) 85.9 BUN/Creatinine Ratio 31 (6-20) Glucose Level 222 mg/dL (70-99) Calcium Level 9.2 mg/dL (8.5-10.1) Total Bilirubin 0.4 mg/dL (0.2-1.0) Aspartate Amino Transf (AST/SGOT) 6 U/L (15-37) Alanine Aminotransferase (ALT/SGPT) 18 U/L (14-59) Alkaline Phosphatase 137 U/L (46-116) Total Protein 6.7 g/dL (6.4-8.2) Albumin 2.1 g/dL (3.4-5.0) Albumin/Globulin Ratio 0.5 (1.0-1.7) Test 04/15/19 11:46 Glucose (Fingerstick) 185 mg/dL (70-99) Laboratory Tests Test 04/14/19 17:00 04/14/19 20:41 04/15/19 04:45 04/15/19 07:52 Glucose (Fingerstick) 258 mg/dL (70-99) 232 mg/dL (70-99) 215 mg/dL (70-99) White Blood Count 10.7 x10^3/uL (4.0-11.0) Red Blood Count 3.85 x10^6/uL (3.50-5.40) Hemoglobin 11.3 g/dL (12.0-15.5) Hematocrit 34.1 % (36.0-47.0) Mean Corpuscular Volume 89 fL (79-100) Mean Corpuscular Hemoglobin 29 pg (25-35) Mean Corpuscular Hemoglobin Concent 33 g/dL (31-37) Red Cell Distribution Width 17.0 % (11.5-14.5) Platelet Count 321 x10^3/uL (140-400) Neutrophils (%) (Auto) 79 % (31-73) Lymphocytes (%) (Auto) 14 % (24-48) Monocytes (%) (Auto) 7 % (0-9) Eosinophils (%) (Auto) 1 % (0-3) Basophils (%) (Auto) 0 % (0-3) Neutrophils # (Auto) 8.4 x10^3/uL (1.8-7.7) Lymphocytes # (Auto) 1.5 x10^3/uL (1.0-4.8) Monocytes # (Auto) 0.7 x10^3/uL (0.0-1.1) Eosinophils # (Auto) 0.1 x10^3/uL (0.0-0.7) Basophils # (Auto) 0.0 x10^3/uL (0.0-0.2) Sodium Level 141 mmol/L (136-145) Potassium Level 5.3 mmol/L (3.5-5.1) Chloride Level 101 mmol/L (98-107) Carbon Dioxide Level 38 mmol/L (21-32) Anion Gap 2 (6-14) Blood Urea Nitrogen 22 mg/dL (7-20) Creatinine 0.7 mg/dL (0.6-1.0) Estimated GFR (Cockcroft-Gault) 85.9 BUN/Creatinine Ratio 31 (6-20) Glucose Level 222 mg/dL (70-99) Calcium Level 9.2 mg/dL (8.5-10.1) Total Bilirubin 0.4 mg/dL (0.2-1.0) Aspartate Amino Transf (AST/SGOT) 6 U/L (15-37) Alanine Aminotransferase (ALT/SGPT) 18 U/L (14-59) Alkaline Phosphatase 137 U/L (46-116) Total Protein 6.7 g/dL (6.4-8.2) Albumin 2.1 g/dL (3.4-5.0) Albumin/Globulin Ratio 0.5 (1.0-1.7) Test 04/15/19 11:46 Glucose (Fingerstick) 185 mg/dL (70-99) Assessment Assessment Left foot severe diabetic foot infection, with initial gangrene. Purulent drainage seems about resolved now. I would consider an MRI, and probably will order that for tomorrow, to be done with IV gadolinium contrast. Her creatinine is near normal so she should be able to tolerate that. I think if the MRI shows no further evidence of osteomyelitis or deep fluid collection I would consider closure of the left foot wound on Tuesday. She agrees with that plan and would like to have the MRI. Plan Plan of Care MRI left foot with and without IV contrast on Tuesday. Possible surgery Tuesday. Remain nonweightbearing on the left foot. Continue antibiotics. SUSANA AGUAYO MD Apr 15, 2019 16:19
[2019-04-15 20:15] VITALS: BP 143/62
[2019-04-15] MEDS: ATORVASTATIN CALCIUM 20 MG TABLET PO SCH (20:55)
[2019-04-15] MEDS: ASPIRIN ENTERIC COATED 325 MG TABLET.DR. PO SCH (20:55)
[2019-04-15] MEDS: GABAPENTIN 400 MG CAPSULE. PO SCH (20:57)
[2019-04-16] VITALS (7 sets, daily range): BP systolic 132–152; BP diastolic 54–86
[2019-04-16] MEDS: MEROPENEM 1 GM in IV NORMAL SALINE 100ML 100 ML IV SCH ×3 (06:10→22:21)
[2019-04-16 06:36] LABS: BASO # 0.1 x10^3/uL (0.0-0.2); BASO % 1 % (0-3); EOS # 0.4 x10^3/uL (0.0-0.7); EOS % 4 % (0-3); HEMATOCRIT 33.4 % (36.0-47.0); HEMOGLOBIN 10.9 g/dL (12.0-15.5); LYMPH # 2.4 x10^3/uL (1.0-4.8); LYMPH % 23 % (24-48); MEAN CORPUSCULAR HEMOGLOBIN 29 pg (25-35); MEAN CORPUSCULAR HGB CONC 33 g/dL (31-37); MEAN CORPUSCULAR VOLUME 89 fL (79-100); MONO # 0.8 x10^3/uL (0.0-1.1); MONO % 8 % (0-9); NEUT # 6.9 x10^3/uL (1.8-7.7); NEUT % 65 % (31-73); PLATELET COUNT 306 x10^3/uL (140-400); RED BLOOD COUNT 3.76 x10^6/uL (3.50-5.40); RED CELL DISTRIBUTION WIDTH 16.8 % (11.5-14.5); WHITE BLOOD COUNT 10.6 x10^3/uL (4.0-11.0)
[2019-04-16 06:40] LABS: ALBUMIN/GLOBULIN RATIO 0.5 (1.0-1.7); ALK PHOS 114 U/L (46-116); ALT (SGPT) 18 U/L (14-59); AST (SGOT) 7 U/L (15-37); BLOOD UREA NITROGEN 20 mg/dL (7-20); BUN/CREATININE RATIO 33 (6-20); CALCIUM 9.2 mg/dL (8.5-10.1); CARBON DIOXIDE 42 mmol/L (21-32); CHLORIDE 103 mmol/L (98-107); CREATINE KINASE 10 U/L (26-192); CREATININE 0.6 mg/dL (0.6-1.0); GFR 102.7; GLUCOSE 80 mg/dL (70-99); POTASSIUM 4.5 mmol/L (3.5-5.1); SODIUM 144 mmol/L (136-145); TOTAL BILIRUBIN 0.3 mg/dL (0.2-1.0); TOTAL PROTEIN 6.1 g/dL (6.4-8.2)
[2019-04-16] MEDS: fentaNYL PF VIAL 100 MCG/2 ML VIAL IV PRN ×5 (07:36→21:46)
[2019-04-16] MEDS: INSULIN LISPRO 300 UNITS/3 ML VIAL. SQ SCH ×6 (08:00→17:06)
[2019-04-16] MEDS: ALBUTEROL SULFATE 2.5 MG/3 ML NEBU. NEB SCH ×4 (08:06→20:32)
[2019-04-16] MEDS: FUROSEMIDE 40 MG TABLET. PO SCH (09:16)
[2019-04-16] MEDS: LACTOBACILLUS RHAMNOSUS GG 1 CAPSULE. PO SCH ×2 (09:16→21:45)
[2019-04-16] MEDS: ATENOLOL 50 MG TABLET. PO SCH ×2 (09:17→21:45)
[2019-04-16] MEDS: GABAPENTIN 300 MG CAPSULE. PO SCH ×3 (09:17→21:46)
[2019-04-16] MEDS: INSULIN GLARGINE SYRINGE. SQ SCH ×2 (09:21→21:00)
--- NOTE | 2019-04-16 09:35 | NUR ---
Dr. Pollack in to see pt, removed bilat . ft dressings. Bilat ft dressings replaced, wet to dry.
--- NOTE | 2019-04-16 09:36 | PDOC ---
Infectious Disease Note Subjective Subjective pt is feeling ok ROS ROS no n/v/d/sob/fever Vital Sign Vital Signs Vital Signs Date Time Temp Pulse Resp B/P (MAP) Pulse Ox O2 Delivery O2 Flow Rate FiO2 04/16/19 09:22 58 132/74 04/16/19 09:22 Nasal Cannula 3.0 04/16/19 08:06 97 04/16/19 07:00 98.0 18 98.0 Physical Exam PHYSICAL EXAM GENNERAL: Propped up in bed, alert, NAD HEENT: Oral cavity, pharynx is clear. NECK: Supple LUNGS: Clear to auscultation bilaterally HEART: S1, S2. ABDOMEN: Morbidly obese, soft, nontender EXTREMITIES: Foot wounds bilaterally, dressings in place. left 3 rd toe amp site with some necrotic tissue SKIN: warm to touch NEUROLOGIC: Nonfocal. [facility] clean Labs Lab Laboratory Tests Test 04/15/19 11:46 04/15/19 17:04 04/15/19 20:19 04/16/19 06:15 Glucose (Fingerstick) 185 mg/dL (70-99) 138 mg/dL (70-99) 149 mg/dL (70-99) White Blood Count 10.6 x10^3/uL (4.0-11.0) Red Blood Count 3.76 x10^6/uL (3.50-5.40) Hemoglobin 10.9 g/dL (12.0-15.5) Hematocrit 33.4 % (36.0-47.0) Mean Corpuscular Volume 89 fL (79-100) Mean Corpuscular Hemoglobin 29 pg (25-35) Mean Corpuscular Hemoglobin Concent 33 g/dL (31-37) Red Cell Distribution Width 16.8 % (11.5-14.5) Platelet Count 306 x10^3/uL (140-400) Neutrophils (%) (Auto) 65 % (31-73) Lymphocytes (%) (Auto) 23 % (24-48) Monocytes (%) (Auto) 8 % (0-9) Eosinophils (%) (Auto) 4 % (0-3) Basophils (%) (Auto) 1 % (0-3) Neutrophils # (Auto) 6.9 x10^3/uL (1.8-7.7) Lymphocytes # (Auto) 2.4 x10^3/uL (1.0-4.8) Monocytes # (Auto) 0.8 x10^3/uL (0.0-1.1) Eosinophils # (Auto) 0.4 x10^3/uL (0.0-0.7) Basophils # (Auto) 0.1 x10^3/uL (0.0-0.2) Sodium Level 144 mmol/L (136-145) Potassium Level 4.5 mmol/L (3.5-5.1) Chloride Level 103 mmol/L (98-107) Carbon Dioxide Level 42 mmol/L (21-32) Anion Gap (6-14) Blood Urea Nitrogen 20 mg/dL (7-20) Creatinine 0.6 mg/dL (0.6-1.0) Estimated GFR (Cockcroft-Gault) 102.7 BUN/Creatinine Ratio 33 (6-20) Glucose Level 80 mg/dL (70-99) Calcium Level 9.2 mg/dL (8.5-10.1) Total Bilirubin 0.3 mg/dL (0.2-1.0) Aspartate Amino Transf (AST/SGOT) 7 U/L (15-37) Alanine Aminotransferase (ALT/SGPT) 18 U/L (14-59) Alkaline Phosphatase 114 U/L (46-116) Creatine Kinase 10 U/L (26-192) Total Protein 6.1 g/dL (6.4-8.2) Albumin 2.0 g/dL (3.4-5.0) Albumin/Globulin Ratio 0.5 (1.0-1.7) Test 04/16/19 08:01 Glucose (Fingerstick) 79 mg/dL (70-99) Micro Microbiology 04/11/19 Anaerobic/Aerobic Culture, Resulted Pending 04/11/19 Anaerobic Culture Result 1 (DEANNE), Resulted Pending 04/11/19 Aerobic Culture - Preliminary, Resulted 04/11/19 Aerobic Culture Result 1 (DEANNE) - Preliminary, Resulted 04/11/19 Gram Stain - Final, Resulted 04/11/19 Gram Stain Result 1 (DEANNE) - Final, Resulted 04/11/19 Gram Stain Result 2 (DEANNE) - Final, Resulted 04/10/19 Blood Culture - Preliminary, Resulted NO GROWTH AFTER 4 DAYS Objective Assessment L 3 rd toe osteomyelitis - infection - despite amoxicillin/Clinda Left third toe amputation metatarsal, with toe, single 04/10 ALISIA Cephalexin allegy -swelling and throat closing leukocytosis - now s/p steroids prior to surgery Yeast skin Dm Right plantar wou Plan Plan of Care Dapto, meropenem and fluconazole ,,, november d/c with iv Invanz daily at [facility] Monitor for abx toxicities/side effects Probiotics Cultures neg so far Wound care as directed KATHLEEN SHERMAN MD Apr 16, 2019 09:36
--- NOTE | 2019-04-16 09:50 | PDOC ---
PROGRESS NOTES Chief Complaint Chief Complaint impression 1. LEft THIRD TOE Gangrene -s/p amputation 04/10 (POD # 3) 2. RT heel ulcer - wound care 3. OSteomyelitis - as per [facility] - 4. DM with hgba1c 9.7 and neuropathy and target organ damage - hx osteo, partial amputation big toe 5. Obesity 6. HTN - controlled 7,. Lymphedema 8. POst op confusion, transient 9, POst op mild hyperkalemia 5.5 10. Post op ALISIA, VMN 11. developing congestive heart failure with diffuse pulmonary edema. Underlying infiltrate in the left lung base cannot excluded. 12. Left rotator cuff calcific tendinopathy. 13. severe protein-caloric malnutrition 14 PULMONARY HYPERTENSION 15. 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 L97.524 * Non-pressure chronic ulcer of other part of right foot (plantar first metatarsophalangeal joint and third toe) with fat layer exposed L97.512 Procedure: * Left foot: partial excision third metatarsal bone, and associated debridement, selective excisional debridement surrounding necrotic tissue CPT 85499 * Right foot (plantar first metatarsophalangeal joint, distal third toe): Debridement with high-pressure water jet and sharp selective debridement of open wound of right foot and toes, debridement of fibrin, devitalized epider mis, exudate, devitalized dermis CPT 51776 Surgeon: Susana Sandoval MD Anesthesia: General EBL: 10 mL Specimens Obtained: deep cultures left foot, persistent purulent drainage Complications: none Drains: none Indications for Procedure: The patient is a 58-year-old with severe complications of diabetes who presented with a foul-smelling necrotic third toe and had left foot from urgent third toe amputation with wound left open. She has been treated with wound VAC and antibiotics in the meantime. She has persistent purulent drainage at the open wound of the left foot. In addition she has nonhealing chronic ulcers of the right foot at the metatarsophalangeal joint of the great toe and the the distal aspect of the third toe 28 min pt exam, chart review, > 50% of time spent with exam, chart review, pt care coordination History of Present Illness History of Present Illness POD # 1 - some transient confusion last night- she thought she was in a hotel BS high! 300s HGba1c 9.7 WBC 12,7 ESR 105, platelets 317 hgb 12 K 5,5, creat 1,3 from 0.9 - on lasix 20 BID at home ALso requests her meclizine ON hefty doses insulin 27 units mealtimes and 70 qhs PLAN: STart lantus 25 qdaily first dose now AWAIT wound care re that RT heel ulcer and toe wound POst op care/labs PT.OT Self pay? IV abx per ID NO IVF for now re that creat kayexylate 15 x 1 re K 5.5 REcheck BMP tmr - if creat worse, then she agreed to IVF - she did not want to start iVF - afraid of lymphedema OK for home meclizine no lasix for now Vitals Vitals Vital Signs Date Time Temp Pulse Resp B/P (MAP) Pulse Ox O2 Delivery O2 Flow Rate FiO2 04/16/19 09:22 58 132/74 04/16/19 09:22 Nasal Cannula 3.0 04/16/19 08:06 97 04/16/19 07:00 98.0 18 98.0 Physical Exam Physical Exam GENNERAL: Propped up in bed, alert, NAD HEENT: Oral cavity, pharynx is clear. NECK: Supple LUNGS: Clear to auscultation bilaterally HEART: S1, S2. ABDOMEN: Morbidly obese, soft, nontender EXTREMITIES: Foot wounds bilaterally, dressings in place. left 3 rd toe amp site with some necrotic tissueDRESSINGS DRY, CLEAN SKIN: warm to touch NEUROLOGIC: Nonfocal. RUE- PICC clean General: Alert, Oriented X3, Cooperative, No acute distress Heart: Regular rate, Normal S1, Normal S2, No murmurs Lungs: Clear Abdomen: Normal bowel sounds, Soft, No tenderness Extremities: No clubbing, No cyanosis, Other (left leg dressing, rt leg dressing, amputated toe wound vac) Skin: Other (left foot wound with wound vac and right foot wound) Labs LABS SERGIO COLLINS MD Visit Type * Unavailable Attempted Visit Details * Attempted to see this date, however, Nica FELIZ, reported pt away from for I&D /amp to LE's. Will check back tomorrow. Relevant History * gangrenous toe, left leg, hx osteo, bad DM Past Medical History Cardiovascular: HTN, Hyperlipidemia Infectious disease: Other (osteomyelitis) Endocrine: Diabetes Past Surgical History Past Surgical History: Other (partial amputtaion great big toe) Surgical procedure * Left third toe amputation metatarsal, with toe, single PT/CAD DETAILER * Fadi Rod PT Communicated Patient Care With (Name, Title) * SUSANA Diaz RN, MD ORDERED: ANAER/AEROB/GS COMMENTS: TOE WOUND Procedure Result ANAEROBIC-AEROBIC CULTURE PENDING ANAEROBIC RES 1 PENDING AEROBIC CULT Final Preliminary report Final report AEROBIC RES 1 Final Comment No growth in 36 - 48 hours. No growth in 56 - 72 hours. GRAM STAIN Final Final report GRAM STAIN RES 1 Final Comment No white blood cells seen. GRAM STAIN RES 2 Final No organisms seen Performed at: - [facility], [place], [place] [id number] Certified Nurse Midwife: TATIANA Rodriguez MD, Phone: [phone] Laboratory Tests Test 04/15/19 11:46 04/15/19 17:04 04/15/19 20:19 04/16/19 06:15 Glucose (Fingerstick) 185 mg/dL (70-99) 138 mg/dL (70-99) 149 mg/dL (70-99) White Blood Count 10.6 x10^3/uL (4.0-11.0) Red Blood Count 3.76 x10^6/uL (3.50-5.40) Hemoglobin 10.9 g/dL (12.0-15.5) Hematocrit 33.4 % (36.0-47.0) Mean Corpuscular Volume 89 fL (79-100) Mean Corpuscular Hemoglobin 29 pg (25-35) Mean Corpuscular Hemoglobin Concent 33 g/dL (31-37) Red Cell Distribution Width 16.8 % (11.5-14.5) Platelet Count 306 x10^3/uL (140-400) Neutrophils (%) (Auto) 65 % (31-73) Lymphocytes (%) (Auto) 23 % (24-48) Monocytes (%) (Auto) 8 % (0-9) Eosinophils (%) (Auto) 4 % (0-3) Basophils (%) (Auto) 1 % (0-3) Neutrophils # (Auto) 6.9 x10^3/uL (1.8-7.7) Lymphocytes # (Auto) 2.4 x10^3/uL (1.0-4.8) Monocytes # (Auto) 0.8 x10^3/uL (0.0-1.1) Eosinophils # (Auto) 0.4 x10^3/uL (0.0-0.7) Basophils # (Auto) 0.1 x10^3/uL (0.0-0.2) Sodium Level 144 mmol/L (136-145) Potassium Level 4.5 mmol/L (3.5-5.1) Chloride Level 103 mmol/L (98-107) Carbon Dioxide Level 42 mmol/L (21-32) Anion Gap (6-14) Blood Urea Nitrogen 20 mg/dL (7-20) Creatinine 0.6 mg/dL (0.6-1.0) Estimated GFR (Cockcroft-Gault) 102.7 BUN/Creatinine Ratio 33 (6-20) Glucose Level 80 mg/dL (70-99) Calcium Level 9.2 mg/dL (8.5-10.1) Total Bilirubin 0.3 mg/dL (0.2-1.0) Aspartate Amino Transf (AST/SGOT) 7 U/L (15-37) Alanine Aminotransferase (ALT/SGPT) 18 U/L (14-59) Alkaline Phosphatase 114 U/L (46-116) Creatine Kinase 10 U/L (26-192) Total Protein 6.1 g/dL (6.4-8.2) Albumin 2.0 g/dL (3.4-5.0) Albumin/Globulin Ratio 0.5 (1.0-1.7) Test 04/16/19 08:01 Glucose (Fingerstick) 79 mg/dL (70-99) Comment Review of Relevant I have reviewed the following items adrienne (where applicable) has been applied. Labs Laboratory Tests Test 04/14/19 12:02 04/14/19 17:00 04/14/19 20:41 04/15/19 04:45 Glucose (Fingerstick) 214 mg/dL (70-99) 258 mg/dL (70-99) 232 mg/dL (70-99) White Blood Count 10.7 x10^3/uL (4.0-11.0) Red Blood Count 3.85 x10^6/uL (3.50-5.40) Hemoglobin 11.3 g/dL (12.0-15.5) Hematocrit 34.1 % (36.0-47.0) Mean Corpuscular Volume 89 fL (79-100) Mean Corpuscular Hemoglobin 29 pg (25-35) Mean Corpuscular Hemoglobin Concent 33 g/dL (31-37) Red Cell Distribution Width 17.0 % (11.5-14.5) Platelet Count 321 x10^3/uL (140-400) Neutrophils (%) (Auto) 79 % (31-73) Lymphocytes (%) (Auto) 14 % (24-48) Monocytes (%) (Auto) 7 % (0-9) Eosinophils (%) (Auto) 1 % (0-3) Basophils (%) (Auto) 0 % (0-3) Neutrophils # (Auto) 8.4 x10^3/uL (1.8-7.7) Lymphocytes # (Auto) 1.5 x10^3/uL (1.0-4.8) Monocytes # (Auto) 0.7 x10^3/uL (0.0-1.1) Eosinophils # (Auto) 0.1 x10^3/uL (0.0-0.7) Basophils # (Auto) 0.0 x10^3/uL (0.0-0.2) Sodium Level 141 mmol/L (136-145) Potassium Level 5.3 mmol/L (3.5-5.1) Chloride Level 101 mmol/L (98-107) Carbon Dioxide Level 38 mmol/L (21-32) Anion Gap 2 (6-14) Blood Urea Nitrogen 22 mg/dL (7-20) Creatinine 0.7 mg/dL (0.6-1.0) Estimated GFR (Cockcroft-Gault) 85.9 BUN/Creatinine Ratio 31 (6-20) Glucose Level 222 mg/dL (70-99) Calcium Level 9.2 mg/dL (8.5-10.1) Total Bilirubin 0.4 mg/dL (0.2-1.0) Aspartate Amino Transf (AST/SGOT) 6 U/L (15-37) Alanine Aminotransferase (ALT/SGPT) 18 U/L (14-59) Alkaline Phosphatase 137 U/L (46-116) Total Protein 6.7 g/dL (6.4-8.2) Albumin 2.1 g/dL (3.4-5.0) Albumin/Globulin Ratio 0.5 (1.0-1.7) Test 04/15/19 07:52 04/15/19 11:46 04/15/19 17:04 04/15/19 20:19 Glucose (Fingerstick) 215 mg/dL (70-99) 185 mg/dL (70-99) 138 mg/dL (70-99) 149 mg/dL (70-99) Test 04/16/19 06:15 04/16/19 08:01 White Blood Count 10.6 x10^3/uL (4.0-11.0) Red Blood Count 3.76 x10^6/uL (3.50-5.40) Hemoglobin 10.9 g/dL (12.0-15.5) Hematocrit 33.4 % (36.0-47.0) Mean Corpuscular Volume 89 fL (79-100) Mean Corpuscular Hemoglobin 29 pg (25-35) Mean Corpuscular Hemoglobin Concent 33 g/dL (31-37) Red Cell Distribution Width 16.8 % (11.5-14.5) Platelet Count 306 x10^3/uL (140-400) Neutrophils (%) (Auto) 65 % (31-73) Lymphocytes (%) (Auto) 23 % (24-48) Monocytes (%) (Auto) 8 % (0-9) Eosinophils (%) (Auto) 4 % (0-3) Basophils (%) (Auto) 1 % (0-3) Neutrophils # (Auto) 6.9 x10^3/uL (1.8-7.7) Lymphocytes # (Auto) 2.4 x10^3/uL (1.0-4.8) Monocytes # (Auto) 0.8 x10^3/uL (0.0-1.1) Eosinophils # (Auto) 0.4 x10^3/uL (0.0-0.7) Basophils # (Auto) 0.1 x10^3/uL (0.0-0.2) Sodium Level 144 mmol/L (136-145) Potassium Level 4.5 mmol/L (3.5-5.1) Chloride Level 103 mmol/L (98-107) Carbon Dioxide Level 42 mmol/L (21-32) Anion Gap (6-14) Blood Urea Nitrogen 20 mg/dL (7-20) Creatinine 0.6 mg/dL (0.6-1.0) Estimated GFR (Cockcroft-Gault) 102.7 BUN/Creatinine Ratio 33 (6-20) Glucose Level 80 mg/dL (70-99) Calcium Level 9.2 mg/dL (8.5-10.1) Total Bilirubin 0.3 mg/dL (0.2-1.0) Aspartate Amino Transf (AST/SGOT) 7 U/L (15-37) Alanine Aminotransferase (ALT/SGPT) 18 U/L (14-59) Alkaline Phosphatase 114 U/L (46-116) Creatine Kinase 10 U/L (26-192) Total Protein 6.1 g/dL (6.4-8.2) Albumin 2.0 g/dL (3.4-5.0) Albumin/Globulin Ratio 0.5 (1.0-1.7) Glucose (Fingerstick) 79 mg/dL (70-99) Laboratory Tests Test 04/15/19 11:46 04/15/19 17:04 04/15/19 20:19 04/16/19 06:15 Glucose (Fingerstick) 185 mg/dL (70-99) 138 mg/dL (70-99) 149 mg/dL (70-99) White Blood Count 10.6 x10^3/uL (4.0-11.0) Red Blood Count 3.76 x10^6/uL (3.50-5.40) Hemoglobin 10.9 g/dL (12.0-15.5) Hematocrit 33.4 % (36.0-47.0) Mean Corpuscular Volume 89 fL (79-100) Mean Corpuscular Hemoglobin 29 pg (25-35) Mean Corpuscular Hemoglobin Concent 33 g/dL (31-37) Red Cell Distribution Width 16.8 % (11.5-14.5) Platelet Count 306 x10^3/uL (140-400) Neutrophils (%) (Auto) 65 % (31-73) Lymphocytes (%) (Auto) 23 % (24-48) Monocytes (%) (Auto) 8 % (0-9) Eosinophils (%) (Auto) 4 % (0-3) Basophils (%) (Auto) 1 % (0-3) Neutrophils # (Auto) 6.9 x10^3/uL (1.8-7.7) Lymphocytes # (Auto) 2.4 x10^3/uL (1.0-4.8) Monocytes # (Auto) 0.8 x10^3/uL (0.0-1.1) Eosinophils # (Auto) 0.4 x10^3/uL (0.0-0.7) Basophils # (Auto) 0.1 x10^3/uL (0.0-0.2) Sodium Level 144 mmol/L (136-145) Potassium Level 4.5 mmol/L (3.5-5.1) Chloride Level 103 mmol/L (98-107) Carbon Dioxide Level 42 mmol/L (21-32) Anion Gap (6-14) Blood Urea Nitrogen 20 mg/dL (7-20) Creatinine 0.6 mg/dL (0.6-1.0) Estimated GFR (Cockcroft-Gault) 102.7 BUN/Creatinine Ratio 33 (6-20) Glucose Level 80 mg/dL (70-99) Calcium Level 9.2 mg/dL (8.5-10.1) Total Bilirubin 0.3 mg/dL (0.2-1.0) Aspartate Amino Transf (AST/SGOT) 7 U/L (15-37) Alanine Aminotransferase (ALT/SGPT) 18 U/L (14-59) Alkaline Phosphatase 114 U/L (46-116) Creatine Kinase 10 U/L (26-192) Total Protein 6.1 g/dL (6.4-8.2) Albumin 2.0 g/dL (3.4-5.0) Albumin/Globulin Ratio 0.5 (1.0-1.7) Test 04/16/19 08:01 Glucose (Fingerstick) 79 mg/dL (70-99) Microbiology 04/13/19 Anaerobic/Aerobic Culture, Resulted Pending 04/13/19 Anaerobic Culture Result 1 (DEANNE), Resulted Pending 04/13/19 Aerobic Culture - Preliminary, Resulted 04/13/19 Aerobic Culture Result 1 (DEANNE) - Preliminary, Resulted 04/13/19 Gram Stain - Final, Resulted 04/13/19 Gram Stain Result 1 (DEANNE) - Final, Resulted 04/13/19 Gram Stain Result 2 (DEANNE) - Final, Resulted 04/10/19 Blood Culture - Final, Complete NO GROWTH AFTER 5 DAYS Medications Current Medications Vancomycin HCl (Vanco Per Pharmacy) 1 each PRN DAILY PRN MC SEE COMMENTS Last administered on 04/10/19at 03:41; Start 04/09/19 at 22:30; Stop 04/10/19 at 12:36; Status DC Piperacillin Sod/ Tazobactam Sod (Zosyn Per Pharmacy) 1 each PRN DAILY PRN MC SEE COMMENTS; Start 04/09/19 at 22:30; Stop 04/10/19 at 12:35; Status DC Sodium Chloride 1,000 ml @ 100 mls/hr Q10H IV Last administered on 04/11/19at 05:23; Start 04/09/19 at 23:00; Stop 04/11/19 at 09:26; Status DC Acetaminophen/ Hydrocodone Bitart (Lortab 5/325) 1 tab PRN Q4HRS PRN PO MODERATE PAIN 4-6 Last administered on 04/14/19at 12:19; Start 04/09/19 at 22:30 Acetaminophen/ Hydrocodone Bitart (Lortab 5/325) 2 tab PRN Q4HRS PRN PO SEVERE PAIN 7-10 Last administered on 04/15/19at 09:46; Start 04/09/19 at 22:30 Insulin Glargine (Lantus Syringe) 70 unit QHS SQ Last administered on 04/15/19at 21:10; Start 04/09/19 at 23:00 Insulin Human Lispro (HumaLOG) 20 units 1X ONCE SQ Last administered on 04/09/19at 23:02; Start 04/09/19 at 23:00; Stop 04/09/19 at 23:01; Status DC Insulin Human Lispro (HumaLOG) 0-7 UNITS TIDWMEALS SQ ; Start 04/10/19 at 08:00; Stop 04/10/19 at 08:08; Status DC Dextrose (Dextrose 50%-Water Syringe) 12.5 gm PRN Q15MIN PRN IV SEE COMMENTS; Start 04/09/19 at 22:30; Status Cancel Dextrose 250 ml PRN Q15MIN PRN IV SEE COMMENTS; Start 04/09/19 at 22:30; Status Cancel Insulin Human Lispro (HumaLOG) 26 units TIDAC SQ Last administered on 04/16/19at 09:22; Start 04/10/19 at 07:30 Piperacillin Sod/ Tazobactam Sod 3.375 gm/Sodium Chloride 50 ml @ 100 mls/hr Q6HRS IV Last administered on 04/10/19at 11:35; Start 04/10/19 at 00:00; Stop 04/10/19 at 12:35; Status DC Gabapentin (Neurontin) 900 mg BID92 PO Last administered on 04/16/19at 09:22; Start 04/10/19 at 09:00 Gabapentin (Neurontin) 1,200 mg HS PO Last administered on 04/15/19at 20:58; Start 04/10/19 at 21:00 Atenolol (Tenormin) 40 mg DAILY PO ; Start 04/10/19 at 09:00; Status UNV Vancomycin HCl 2 gm/Sodium Chloride 500 ml @ 250 mls/hr Q12H IV Last administered on 04/10/19at 05:20; Start 04/10/19 at 05:00; Stop 04/10/19 at 12:36 ; Status DC Vancomycin HCl (Vancomycin Trough Level) 1 each 1X ONCE MC ; Start 04/11/19 at 04:30; Stop 04/11/19 at 04:31; Status Cancel Insulin Human Lispro (HumaLOG) 0-9 UNITS TIDWMEALS SQ Last administered on 04/15/19at 12:03; Start 04/10/19 at 12:00 Dextrose (Dextrose 50%-Water Syringe) 12.5 gm PRN Q15MIN PRN IV SEE COMMENTS; Start 04/10/19 at 08:15 Dextrose 250 ml PRN Q15MIN PRN IV SEE COMMENTS; Start 04/10/19 at 08:15 Acetaminophen (Tylenol) 500 mg PRN Q6HRS PRN PO MILD PAIN / TEMP Last administe red on 04/12/19at 13:04; Start 04/10/19 at 08:15 Ondansetron HCl (Zofran) 4 mg PRN Q6HRS PRN IV NAUSEA/VOMITING Last administere d on 04/13/19at 12:24; Start 04/10/19 at 08:15 Fentanyl Citrate (Fentanyl 2ml Vial) 50 mcg PRN Q2HR PRN IV PAIN Last administered on 04/16/19at 07:38; Start 04/10/19 at 08:15 Sodium Chloride ([place] Saline Nasal) 1 nadeem PRN Q2HRS PRN NS NASAL CONGESTION Last administered on 04/10/19at 15:54; Start 04/10/19 at 11:45 Fluconazole/ Sodium Chloride 100 ml @ 100 mls/hr Q24H IV Last administered on 04/15/19at 13:11; Start 04/10/19 at 13:00 Meropenem 1 gm/ Sodium Chloride 100 ml @ 200 mls/hr Q8HRS IV Last administered on 04/16/19at 06:10; Start 04/10/19 at 14:00 Daptomycin 900 mg/ Sodium Chloride 50 ml @ 100 mls/hr Q24H IV Last administered on 04/15/19at 13:54; Start 04/10/19 at 13:00 Fentanyl Citrate (Fentanyl 2ml Vial) 25 mcg PRN Q5MIN PRN IV MILD PAIN 1-3; Start 04/10/19 at 13:15; Stop 04/11/19 at 11:49; Status DC Fentanyl Citrate (Fentanyl 2ml Vial) 50 mcg PRN Q5MIN PRN IV MODERATE TO SEVERE PAIN; Start 04/10/19 at 13:15; Stop 04/11/19 at 11:49; Status DC Morphine Sulfate (Morphine Sulfate) 1 mg PRN Q10MIN PRN IV SEVERE PAIN 7-10; Start 04/10/19 at 13:15; Stop 04/11/19 at 11:50; Status DC Ringer's Solution 1,000 ml @ 30 mls/hr Q24H IV ; Start 04/10/19 at 13:14; Stop 04/11/19 at 01:13; Status DC Hydromorphone HCl (Dilaudid) 0.5 mg PRN Q10MIN PRN IV SEV PAIN, Second choice; Start 04/10/19 at 13:15; Stop 04/11/19 at 11:50; Status DC Prochlorperazine Edisylate (Compazine) 5 mg PACU PRN PRN IV NAUSEA, MRX1; Start 04/10/19 at 13:15; Stop 04/11/19 at 11:50; Status DC Fentanyl Citrate (Fentanyl 2ml Vial) 100 mcg STK-MED ONCE .ROUTE ; Start 04/10/19 at 13:20; Stop 04/10/19 at 13:21; Status DC Sevoflurane (Ultane) 30 ml STK-MED ONCE IH ; Start 04/10/19 at 13:20; Stop 04/10/19 at 13:21; Status DC Propofol 20 ml @ As Directed STK-MED ONCE IV ; Start 04/10/19 at 13:20; Stop 04/10/19 at 13:21; Status DC Dexamethasone Sodium Phosphate (Decadron) 4 mg STK-MED ONCE .ROUTE ; Start 04/10/19 at 13:21; Stop 04/10/19 at 13:21; Status DC Lidocaine HCl (Lidocaine Pf 2% Vial) 5 ml STK-MED ONCE .ROUTE ; Start 04/10/19 at 13:21; Stop 04/10/19 at 13:21; Status DC Ondansetron HCl (Zofran) 4 mg STK-MED ONCE .ROUTE ; Start 04/10/19 at 13:21; Stop 04/10/19 at 13:21; Status DC Phenylephrine HCl (PHENYLEPHRINE in 0.9% NACL PF) 1 mg STK-MED ONCE IV ; Start 04/10/19 at 14:27; Stop 04/10/19 at 14:27; Status DC Aspirin (Ecotrin) 325 mg QHS PO Last administered on 04/15/19at 20:58; Start 04/10/19 at 21:00 Oxycodone/ Acetaminophen (Percocet 5/325) 1 tab PRN Q4HRS PRN PO MODERATE PAIN, LAST OPTION Last administered on 04/14/19at 15:41; Start 04/10/19 at 15:15; Stop 04/15/19 at 16:17; Status DC Oxycodone/ Acetaminophen (Percocet 5/325) 2 tab PRN Q4HRS PRN PO SEVERE PAIN, LAST OPTION Last administered on 04/14/19at 20:33; Start 04/10/19 at 15:30; Stop 04/15/19 at 16:17; Status DC Insulin Glargine (Lantus Syringe) 30 unit DAILY SQ Last administered on 04/16/19at 09:22; Start 04/11/19 at 09:00 Sodium Polystyrene Sulfonate (Kayexalate) 15 gm 1X ONCE PO Last administered on 04/11/19at 10:24; Start 04/11/19 at 09:00; Stop 04/11/19 at 09:01; Status DC Meclizine HCl (Antivert) 12.5 mg PRN Q6HRS PRN PO DIZZINESS Last administered on 04/11/19at 10:24; Start 04/11/19 at 09:30 Albuterol Sulfate (Ventolin Neb Soln) 2.5 mg PRN Q4HRS PRN NEB SHORTNESS OF BREATH Last administered on 04/14/19at 15:30; Start 04/11/19 at 10:45; Stop 04/14/19 at 15:46; Status DC Albuterol Sulfate (Ventolin Neb Soln) 2.5 mg 1X ONCE NEB Last administered on 04/11/19at 11:54; Start 04/11/19 at 11:00; Stop 04/11/19 at 11:01; Status DC Lactobacillus Rhamnosus (Culturelle) 1 cap BID PO Last administered on 04/16/19at 09:22; Start 04/11/19 at 12:00 Furosemide (Lasix) 40 mg 1X ONCE IVP Last administered on 04/11/19at 20:18; Start 04/11/19 at 19:00; Stop 04/11/19 at 19:01; Status DC Perflutren Protein Type A Microsphe (Optison) 0.66 mg 1X ONCE IV ; Start 04/12/19 at 10:00; Stop 04/12/19 at 10:01; Status DC Furosemide (Lasix) 40 mg 1X ONCE IVP Last administered on 04/12/19at 11:44; Start 04/12/19 at 10:45; Stop 04/12/19 at 10:49; Status DC Atenolol (Tenormin) 50 mg BID PO Last administered on 04/16/19at 09:22; Start 04/13/19 at 14:00 Morphine Sulfate (Morphine Sulfate) 1 mg PRN Q10MIN PRN IV SEVERE PAIN 7-10; Start 04/14/19 at 07:00; Stop 04/15/19 at 06:59; Status DC Ringer's Solution 1,000 ml @ 30 mls/hr Q24H IV ; Start 04/14/19 at 07:00; Stop 04/14/19 at 18:59; Status DC Hydromorphone HCl (Dilaudid) 0.5 mg PRN Q10MIN PRN IV SEV PAIN, Second choice; Start 04/14/19 at 07:00; Stop 04/15/19 at 06:59; Status DC Prochlorperazine Edisylate (Compazine) 5 mg PACU PRN PRN IV NAUSEA, MRX1; Start 04/14/19 at 07:00; Stop 04/15/19 at 06:59; Status DC Furosemide (Lasix) 40 mg 1X ONCE IVP Last administered on 04/13/19at 17:35; Start 04/13/19 at 17:00; Stop 04/13/19 at 17:01; Status DC Furosemide (Lasix) 40 mg DAILY PO Last administered on 04/16/19at 09:22; Start 04/14/19 at 09:00 Atorvastatin Calcium (Lipitor) 20 mg QHS PO Last administered on 04/15/19at 20:58; Start 04/13/19 at 21:00 Insulin Human Lispro (HumaLOG) 3 units 1X ONCE SQ Last administered on 04/13/19at 20:44; Start 04/13/19 at 21:00; Stop 04/13/19 at 21:01; Status DC Propofol 20 ml @ As Directed STK-MED ONCE IV ; Start 04/14/19 at 07:35; Stop 04/14/19 at 07:36; Status DC Dexamethasone Sodium Phosphate (Decadron) 4 mg STK-MED ONCE .ROUTE ; Start 04/14/19 at 07:35; Stop 04/14/19 at 07:36; Status DC Lidocaine HCl (Lidocaine Pf 2% Vial) 5 ml STK-MED ONCE .ROUTE ; Start 04/14/19 at 07:35; Stop 04/14/19 at 07:36; Status DC Ondansetron HCl (Zofran) 4 mg STK-MED ONCE .ROUTE ; Start 04/14/19 at 07:35; Stop 04/14/19 at 07:36; Status DC Sevoflurane (Ultane) 60 ml STK-MED ONCE IH ; Start 04/14/19 at 07:36; Stop 04/14/19 at 07:36; Status DC Sevoflurane (Ultane) 15 ml STK-MED ONCE IH ; Start 04/14/19 at 09:22; Stop 04/14/19 at 09:23; Status DC Morphine Sulfate (Morphine Sulfate) 1 mg PRN Q10MIN PRN IV SEVERE PAIN 7-10; Start 04/14/19 at 09:45; Stop 04/14/19 at 20:00; Status DC Ringer's Solution 1,000 ml @ 30 mls/hr Q24H IV ; Start 04/14/19 at 09:32; Stop 04/14/19 at 21:31; Status DC Hydromorphone HCl (Dilaudid) 0.5 mg PRN Q10MIN PRN IV SEV PAIN, Second choice Last administered on 04/14/19at 10:06; Start 04/14/19 at 09:45; Stop 04/14/19 at 20:00; Status DC Prochlorperazine Edisylate (Compazine) 5 mg PACU PRN PRN IV NAUSEA, MRX1; Start 04/14/19 at 09:45; Stop 04/14/19 at 20:00; Status DC Fentanyl Citrate (Fentanyl 2ml Vial) 100 mcg STK-MED ONCE .ROUTE ; Start 04/14/19 at 09:33; Stop 04/14/19 at 09:33; Status DC Albuterol Sulfate (Ventolin Neb Soln) 2.5 mg RTQID NEB Last administered on 04/16/19at 08:06; Start 04/14/19 at 15:45 Active Scripts Active Reported Atenolol 50 Mg Tablet 1 Tab PO BID Vitals/I & O Vital Sign - Last 24 Hours 04/15/19 04/15/19 04/15/19 04/15/19 07:55 08:28 09:46 09:46 Pulse 77 Resp 16 16 B/P (MAP) 136/58 O2 Delivery Nasal Cannula Room Air Room Air O2 Flow Rate 3.0 04/15/19 04/15/19 04/15/19 04/15/19 10:03 11:00 11:45 13:54 Temp 97.7 97.7 Pulse 60 Resp 18 18 16 B/P (MAP) 150/71 (97) Pulse Ox 97 O2 Delivery Nasal Cannula Room Air Nasal Cannula Room Air O2 Flow Rate 3.0 3.0 04/15/19 04/15/19 04/15/19 04/15/19 15:00 15:40 15:40 15:40 Temp 98.1 98.1 Pulse 56 Resp 18 18 18 B/P (MAP) 136/50 (78) Pulse Ox 94 O2 Delivery Room Air Nasal Cannula Nasal Cannula Nasal Cannula O2 Flow Rate 3.0 3.0 3.0 04/15/19 04/15/19 04/15/19 04/15/19 19:50 20:00 20:15 20:58 Temp 98.1 98.1 Pulse 61 Resp 20 20 B/P (MAP) 143/62 (89) Pulse Ox 95 93 O2 Delivery Nasal Cannula Nasal Cannula Nasal Cannula Nasal Cannula O2 Flow Rate 3.0 3.0 3.0 3.0 04/15/19 04/15/19 04/16/19 04/16/19 20:58 22:47 00:10 04:25 Temp 97.6 97.9 97.6 97.9 Pulse 56 58 54 Resp 20 22 20 B/P (MAP) 136/50 145/61 (89) 152/86 (108) Pulse Ox 98 98 O2 Delivery Nasal Cannula Nasal Cannula BiPAP/CPAP O2 Flow Rate 3.0 3.0 04/16/19 04/16/19 04/16/19 04/16/19 07:00 07:25 07:38 08:06 Temp 98.0 98.0 Pulse 58 Resp 18 B/P (MAP) 132/74 (93) Pulse Ox 94 97 O2 Delivery Nasal Cannula Nasal Cannula Nasal Cannula Nasal Cannula O2 Flow Rate 3.0 3.0 2.0 3.0 04/16/19 04/16/19 09:22 09:22 Pulse 58 B/P (MAP) 132/74 O2 Delivery Nasal Cannula O2 Flow Rate 3.0 Intake and Output 04/15/19 04/16/19 04/16/19 17:00 01:00 09:00 Intake Total 480 ml 240 ml Output Total 1401 ml 900 ml 500 ml Balance -1401 ml -420 ml -260 ml FLORI BAIRES MD Apr 16, 2019 09:50
[2019-04-16] MEDS: HYDROcodone/APAP 5/325MG 1 TAB TABLET PO PRN ×3 (10:56→21:45)
[2019-04-16] MEDS: NORMAL SALINE IV SCH (12:20)
[2019-04-16] MEDS: DAPTOMYCIN IV SCH (12:20)
[2019-04-16] MEDS: FLUCONAZOLE 200MG/100ML PREMIX 100 ML IV SCH (14:03)
--- NOTE | 2019-04-16 15:00 | NUR ---
SS following up with discharge planning. [facility], [place], [id number], following for self pay status and assistance with Medicaid and disability. Pt will need outpatient IV ABX at discharge. Pt is requesting services at [facility]. SS will continue to follow for discharge planning.
--- NOTE | 2019-04-16 16:40 | NUR ---
Wound Care: Follow up for wound vac placement to L foot DFU s/p I&D. Applied Veraflow vac with reed waffle, reed foam and ostomy ring to periwound. Settings to instill NS at 10cc for 5 minutes every 4 hours. Dressings to R foot changed with iodoflex and telfa. No other open areas noted on head to toe assessment. Per Lori's note 04/15/19, discussed potential MRI for today and pedning those results a possible closure of wound. Discussed with Geeta FELIZ who will follow up. Plan to change vac dressing on 04/18, unless further interventions are planned.
[2019-04-16] MEDS: GABAPENTIN 400 MG CAPSULE. PO SCH (21:00)
[2019-04-16] MEDS: ATORVASTATIN CALCIUM 20 MG TABLET PO SCH (21:46)
[2019-04-16] MEDS: ASPIRIN ENTERIC COATED 325 MG TABLET.DR. PO SCH (21:46)
[2019-04-17] MEDS: HYDROcodone/APAP 5/325MG 1 TAB TABLET PO PRN ×3 (02:01→23:01)
[2019-04-17 03:09] VITALS: BP 144/67
[2019-04-17] MEDS: MEROPENEM 1 GM in IV NORMAL SALINE 100ML 100 ML IV SCH ×3 (05:53→22:43)
[2019-04-17] MEDS ORDERED: BUPIVACAINE-EPI 0.25%-1:200000 MPF 30 ML VIAL. INJ ONE (06:00)
[2019-04-17 07:00] VITALS: BP 155/77
[2019-04-17] MEDS ORDERED: PROCHLORPERAZINE 10 MG/2 ML VIAL. IV PRN (07:00)
[2019-04-17] MEDS ORDERED: HYDROmorphone 2 MG/ML VIAL IV PRN (07:00)
[2019-04-17] MEDS ORDERED: LIDOCAINE 1% PF 2 ML VIAL. ID PRN (07:00)
[2019-04-17] MEDS ORDERED: MORPHINE SULFATE 2 MG/ML VIAL. IV PRN (07:00)
[2019-04-17] MEDS ORDERED: IV RINGERS,LACTATED 1000ML 1,000 ML IV SCH (07:00)
[2019-04-17] MEDS: ALBUTEROL SULFATE 2.5 MG/3 ML NEBU. NEB SCH ×4 (07:05→19:11)
[2019-04-17] MEDS: fentaNYL PF VIAL 100 MCG/2 ML VIAL IV PRN ×6 (07:08→23:01)
[2019-04-17] MEDS: INSULIN LISPRO 300 UNITS/3 ML VIAL. SQ SCH ×6 (07:30→17:00)
[2019-04-17] MEDS: LACTOBACILLUS RHAMNOSUS GG 1 CAPSULE. PO SCH ×2 (09:00→20:59)
[2019-04-17] MEDS: INSULIN GLARGINE SYRINGE. SQ SCH ×2 (09:00→22:45)
--- NOTE | 2019-04-17 09:08 | PDOC ---
PROGRESS NOTES Chief Complaint Chief Complaint impression 1. LEft THIRD TOE Gangrene -s/p amputation 04/10 (POD # 3) 2. RT heel ulcer - wound care 3. OSteomyelitis - as per [facility] xray - 4. DM with hgba1c 9.7 and neuropathy and target organ damage - hx osteo, partial amputation big toe 5. Obesity 6. HTN - controlled 7,. Lymphedema 8. POst op confusion, transient 9, POst op mild hyperkalemia 5.5 10. Post op ALISIA, VMN 11. developing congestive heart failure with diffuse pulmonary edema. Underlying infiltrate in the left lung base cannot excluded. 12. Left rotator cuff calcific tendinopathy. 13. severe protein-caloric malnutrition 14 PULMONARY HYPERTENSION 15. 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 L97.524 * Non-pressure chronic ulcer of other part of right foot (plantar first metatarsophalangeal joint and third toe) with fat layer exposed L97.512 Procedure: * Left foot: partial excision third metatarsal bone, and associated debridement, selective excisional debridement surrounding necrotic tissue CPT 25496 * Right foot (plantar first metatarsophalangeal joint, distal third toe): Debridement with high-pressure water jet and sharp selective debridement of open wound of right foot and toes, debridement of fibrin, devitalized epidermis, exudate, devitalized dermis CPT 32264 Surgeon: Neo Sandoval MD Anesthesia: General EBL: 10 mL Specimens Obtained: deep cultures left foot, persistent purulent drainage Complications: none Drains: none Indications for Procedure: The patient is a 58-year-old with severe complications of diabetes who presented with a foul-smelling necrotic third toe and had left foot from urgent third toe amputation with wound left open. She has been treated with wound VAC and antibiotics in the meantime. She has persistent purulent drainage at the open wound of the left foot. In addition she has nonhealing chronic ulcers of the right foot at the metatarsophalangeal joint of the great toe and the the distal aspect of the third toe 38 min pt exam, chart review, > 50% of time spent with exam, chart review, pt care coordination History of Present Illness History of Present Illness POD # 1 - some transient confusion last night- she thought she was in a hotel BS high! 300s HGba1c 9.7 WBC 12,7 ESR 105, platelets 317 hgb 12 K 5,5, creat 1,3 from 0.9 - on lasix 20 BID at home ALso requests her meclizine ON hefty doses insulin 27 units mealtimes and 70 qhs PLAN: STart lantus 25 qdaily first dose now AWAIT wound care re that RT heel ulcer and toe wound POst op care/labs PT.OT Self pay? IV abx per ID NO IVF for now re that creat kayexylate 15 x 1 re K 5.5 REcheck BMP tmr - if creat worse, then she agreed to IVF - she did not want to start iVF - afraid of lymphedema OK for home meclizine no lasix for now Vitals Vitals Vital Signs Date Time Temp Pulse Resp B/P (MAP) Pulse Ox O2 Delivery O2 Flow Rate FiO2 04/17/19 09:06 Nasal Cannula 3.0 04/17/19 07:08 92 04/17/19 07:00 98.1 56 18 155/77 (103) 98.1 Physical Exam Physical Exam GENNERAL: Propped up in bed, alert, NAD HEENT: Oral cavity, pharynx is clear. NECK: Supple LUNGS: Clear to auscultation bilaterally HEART: S1, S2. ABDOMEN: Morbidly obese, soft, nontender EXTREMITIES: Foot wounds bilaterally, dressings in place. left 3 rd toe amp site with some necrotic tissueDRESSINGS DRY, CLEAN SKIN: warm to touch NEUROLOGIC: Nonfocal. RUE- PICC clean General: Alert, Oriented X3, Cooperative, No acute distress Heart: Regular rate, Normal S1, Normal S2, No murmurs Lungs: Clear Abdomen: Normal bowel sounds, Soft, No tenderness Extremities: No clubbing, No cyanosis, Other (left leg dressing, rt leg dressing, amputated toe wound vac PLANTAR ASPECT SWOLLEN) Skin: Other (left foot wound with wound vac and right foot wound) Labs LABS Laboratory Tests Test 04/16/19 11:30 04/16/19 16:57 04/16/19 20:47 04/17/19 07:10 Glucose (Fingerstick) 102 mg/dL (70-99) 106 mg/dL (70-99) 163 mg/dL (70-99) 92 mg/dL (70-99) Comment Review of Relevant I have reviewed the following items adrienne (where applicable) has been applied. Labs Laboratory Tests Test 04/15/19 11:46 04/15/19 17:04 04/15/19 20:19 04/16/19 06:15 Glucose (Fingerstick) 185 mg/dL (70-99) 138 mg/dL (70-99) 149 mg/dL (70-99) White Blood Count 10.6 x10^3/uL (4.0-11.0) Red Blood Count 3.76 x10^6/uL (3.50-5.40) Hemoglobin 10.9 g/dL (12.0-15.5) Hematocrit 33.4 % (36.0-47.0) Mean Corpuscular Volume 89 fL (79-100) Mean Corpuscular Hemoglobin 29 pg (25-35) Mean Corpuscular Hemoglobin Concent 33 g/dL (31-37) Red Cell Distribution Width 16.8 % (11.5-14.5) Platelet Count 306 x10^3/uL (140-400) Neutrophils (%) (Auto) 65 % (31-73) Lymphocytes (%) (Auto) 23 % (24-48) Monocytes (%) (Auto) 8 % (0-9) Eosinophils (%) (Auto) 4 % (0-3) Basophils (%) (Auto) 1 % (0-3) Neutrophils # (Auto) 6.9 x10^3/uL (1.8-7.7) Lymphocytes # (Auto) 2.4 x10^3/uL (1.0-4.8) Monocytes # (Auto) 0.8 x10^3/uL (0.0-1.1) Eosinophils # (Auto) 0.4 x10^3/uL (0.0-0.7) Basophils # (Auto) 0.1 x10^3/uL (0.0-0.2) Sodium Level 144 mmol/L (136-145) Potassium Level 4.5 mmol/L (3.5-5.1) Chloride Level 103 mmol/L (98-107) Carbon Dioxide Level 42 mmol/L (21-32) Anion Gap (6-14) Blood Urea Nitrogen 20 mg/dL (7-20) Creatinine 0.6 mg/dL (0.6-1.0) Estimated GFR (Cockcroft-Gault) 102.7 BUN/Creatinine Ratio 33 (6-20) Glucose Level 80 mg/dL (70-99) Calcium Level 9.2 mg/dL (8.5-10.1) Total Bilirubin 0.3 mg/dL (0.2-1.0) Aspartate Amino Transf (AST/SGOT) 7 U/L (15-37) Alanine Aminotransferase (ALT/SGPT) 18 U/L (14-59) Alkaline Phosphatase 114 U/L (46-116) Creatine Kinase 10 U/L (26-192) Total Protein 6.1 g/dL (6.4-8.2) Albumin 2.0 g/dL (3.4-5.0) Albumin/Globulin Ratio 0.5 (1.0-1.7) Test 04/16/19 08:01 04/16/19 11:30 04/16/19 16:57 04/16/19 20:47 Glucose (Fingerstick) 79 mg/dL (70-99) 102 mg/dL (70-99) 106 mg/dL (70-99) 163 mg/dL (70-99) Test 04/17/19 07:10 Glucose (Fingerstick) 92 mg/dL (70-99) Laboratory Tests Test 04/16/19 11:30 04/16/19 16:57 04/16/19 20:47 04/17/19 07:10 Glucose (Fingerstick) 102 mg/dL (70-99) 106 mg/dL (70-99) 163 mg/dL (70-99) 92 mg/dL (70-99) Microbiology 04/14/19 Anaerobic/Aerobic Culture, Resulted Pending 04/14/19 Anaerobic Culture Result 1 (DEANNE), Resulted Pending 04/14/19 Aerobic Culture, Resulted Pending 04/14/19 Aerobic Culture Result 1 (DEANNE), Resulted Pending 04/14/19 Gram Stain - Final, Resulted 04/14/19 Gram Stain Result 1 (DEANNE) - Final, Resulted 04/14/19 Gram Stain Result 2 (DEANNE) - Final, Resulted 04/10/19 Blood Culture - Final, Complete NO GROWTH AFTER 5 DAYS Medications Current Medications Vancomycin HCl (Vanco Per Pharmacy) 1 each PRN DAILY PRN MC SEE COMMENTS Last administered on 04/10/19at 03:41; Start 04/09/19 at 22:30; Stop 04/10/19 at 12:36; Status DC Piperacillin Sod/ Tazobactam Sod (Zosyn Per Pharmacy) 1 each PRN DAILY PRN MC SEE COMMENTS; Start 04/09/19 at 22:30; Stop 04/10/19 at 12:35; Status DC Sodium Chloride 1,000 ml @ 100 mls/hr Q10H IV Last administered on 04/11/19at 05:23; Start 04/09/19 at 23:00; Stop 04/11/19 at 09:26; Status DC Acetaminophen/ Hydrocodone Bitart (Lortab 5/325) 1 tab PRN Q4HRS PRN PO MODERATE PAIN 4-6 Last administered on 04/16/19at 21:46; Start 04/09/19 at 22:30 Acetaminophen/ Hydrocodone Bitart (Lortab 5/325) 2 tab PRN Q4HRS PRN PO SEVERE PAIN 7-10 Last administered on 04/17/19at 07:08; Start 04/09/19 at 22:30 Insulin Glargine (Lantus Syringe) 70 unit QHS SQ Last administered on 04/16/19at 22:18; Start 04/09/19 at 23:00 Insulin Human Lispro (HumaLOG) 20 units 1X ONCE SQ Last administered on 04/09/19at 23:02; Start 04/09/19 at 23:00; Stop 04/09/19 at 23:01; Status DC Insulin Human Lispro (HumaLOG) 0-7 UNITS TIDWMEALS SQ ; Start 04/10/19 at 08:00; Stop 04/10/19 at 08:08; Status DC Dextrose (Dextrose 50%-Water Syringe) 12.5 gm PRN Q15MIN PRN IV SEE COMMENTS; Start 04/09/19 at 22:30; Status Cancel Dextrose 250 ml PRN Q15MIN PRN IV SEE COMMENTS; Start 04/09/19 at 22:30; Status Cancel Insulin Human Lispro (HumaLOG) 26 units TIDAC SQ Last administered on 04/16/19at 17:08; Start 04/10/19 at 07:30 Piperacillin Sod/ Tazobactam Sod 3.375 gm/Sodium Chloride 50 ml @ 100 mls/hr Q6HRS IV Last administered on 04/10/19at 11:35; Start 04/10/19 at 00:00; Stop 04/10/19 at 12:35; Status DC Gabapentin (Neurontin) 900 mg BID92 PO Last administered on 04/16/19at 21:46; Start 04/10/19 at 09:00 Gabapentin (Neurontin) 1,200 mg HS PO Last administered on 04/16/19at 21:58; Start 04/10/19 at 21:00 Atenolol (Tenormin) 40 mg DAILY PO ; Start 04/10/19 at 09:00; Status UNV Vancomycin HCl 2 gm/Sodium Chloride 500 ml @ 250 mls/hr Q12H IV Last administered on 04/10/19at 05:20; Start 04/10/19 at 05:00; Stop 04/10/19 at 12:36; Status DC Vancomycin HCl (Vancomycin Trough Level) 1 each 1X ONCE MC ; Start 04/11/19 at 04:30; Stop 04/11/19 at 04:31; Status Cancel Insulin Human Lispro (HumaLOG) 0-9 UNITS TIDWMEALS SQ Last administered on 04/15/19at 12:03; Start 04/10/19 at 12:00 Dextrose (Dextrose 50%-Water Syringe) 12.5 gm PRN Q15MIN PRN IV SEE COMMENTS; Start 04/10/19 at 08:15 Dextrose 250 ml PRN Q15MIN PRN IV SEE COMMENTS; Start 04/10/19 at 08:15 Acetaminophen (Tylenol) 500 mg PRN Q6HRS PRN PO MILD PAIN / TEMP Last administered on 04/12/19at 13:04; Start 04/10/19 at 08:15 Ondansetron HCl (Zofran) 4 mg PRN Q6HRS PRN IV NAUSEA/VOMITING Last administered on 04/13/19at 12:24; Start 04/10/19 at 08:15 Fentanyl Citrate (Fentanyl 2ml Vial) 50 mcg PRN Q2HR PRN IV PAIN Last administered on 04/17/19 09:06; Start 04/10/19 at 08:15 Sodium Chloride ([place] Saline Nasal) 1 nadeem PRN Q2HRS PRN NS NASAL CONGESTION Last administered on 04/10/19at 15:54; Start 04/10/19 at 11:45 Fluconazole/ Sodium Chloride 100 ml @ 100 mls/hr Q24H IV Last administered on 04/16/19at 14:10; Start 04/10/19 at 13:00 Meropenem 1 gm/ Sodium Chloride 100 ml @ 200 mls/hr Q8HRS IV Last administered on 04/17/19at 05:53; Start 04/10/19 at 14:00 Daptomycin 900 mg/ Sodium Chloride 50 ml @ 100 mls/hr Q24H IV Last administered on 04/16/19at 12:24; Start 04/10/19 at 13:00 Fentanyl Citrate (Fentanyl 2ml Vial) 25 mcg PRN Q5MIN PRN IV MILD PAIN 1-3; Start 04/10/19 at 13:15; Stop 04/11/19 at 11:49; Status DC Fentanyl Citrate (Fentanyl 2ml Vial) 50 mcg PRN Q5MIN PRN IV MODERATE TO SEVERE PAIN; Start 04/10/19 at 13:15; Stop 04/11/19 at 11:49; Status DC Morphine Sulfate (Morphine Sulfate) 1 mg PRN Q10MIN PRN IV SEVERE PAIN 7-10; Start 04/10/19 at 13:15; Stop 04/11/19 at 11:50; Status DC Ringer's Solution 1,000 ml @ 30 mls/hr Q24H IV ; Start 04/10/19 at 13:14; Stop 04/11/19 at 01:13; Status DC Hydromorphone HCl (Dilaudid) 0.5 mg PRN Q10MIN PRN IV SEV PAIN, Second choice; Start 04/10/19 at 13:15; Stop 04/11/19 at 11:50; Status DC Prochlorperazine Edisylate (Compazine) 5 mg PACU PRN PRN IV NAUSEA, MRX1; Start 04/10/19 at 13:15; Stop 04/11/19 at 11:50; Status DC Fentanyl Citrate (Fentanyl 2ml Vial) 100 mcg STK-MED ONCE .ROUTE ; Start 04/10/19 at 13:20; Stop 04/10/19 at 13:21; Status DC Sevoflurane (Ultane) 30 ml STK-MED ONCE IH ; Start 04/10/19 at 13:20; Stop 04/10/19 at 13:21; Status DC Propofol 20 ml @ As Directed STK-MED ONCE IV ; Start 04/10/19 at 13:20; Stop 04/10/19 at 13:21; Status DC Dexamethasone Sodium Phosphate (Decadron) 4 mg STK-MED ONCE .ROUTE ; Start 04/10/19 at 13:21; Stop 04/10/19 at 13:21; Status DC Lidocaine HCl (Lidocaine Pf 2% Vial) 5 ml STK-MED ONCE .ROUTE ; Start 04/10/19 at 13:21; Stop 04/10/19 at 13:21; Status DC Ondansetron HCl (Zofran) 4 mg STK-MED ONCE .ROUTE ; Start 04/10/19 at 13:21; Stop 04/10/19 at 13:21; Status DC Phenylephrine HCl (PHENYLEPHRINE in 0.9% NACL PF) 1 mg STK-MED ONCE IV ; Start 04/10/19 at 14:27; Stop 04/10/19 at 14:27; Status DC Aspirin (Ecotrin) 325 mg QHS PO Last administered on 04/16/19at 21:46; Start 04/10/19 at 21:00 Oxycodone/ Acetaminophen (Percocet 5/325) 1 tab PRN Q4HRS PRN PO MODERATE PAIN, LAST OPTION Last administered on 04/14/19at 15:41; Start 04/10/19 at 15:15; Stop 04/15/19 at 16:17; Status DC Oxycodone/ Acetaminophen (Percocet 5/325) 2 tab PRN Q4HRS PRN PO SEVERE PAIN, LAST OPTION Last administered on 04/14/19at 20:33; Start 04/10/19 at 15:30; Stop 04/15/19 at 16:17; Status DC Insulin Glargine (Lantus Syringe) 30 unit DAILY SQ Last administered on 04/16/19 09:22; Start 04/11/19 at 09:00 Sodium Polystyrene Sulfonate (Kayexalate) 15 gm 1X ONCE PO Last administered on 04/11/19at 10:24; Start 04/11/19 at 09:00; Stop 04/11/19 at 09:01; Status DC Meclizine HCl (Antivert) 12.5 mg PRN Q6HRS PRN PO DIZZINESS Last administered on 04/11/19at 10:24; Start 04/11/19 at 09:30 Albuterol Sulfate (Ventolin Neb Soln) 2.5 mg PRN Q4HRS PRN NEB SHORTNESS OF BREATH Last administered on 04/14/19at 15:30; Start 04/11/19 at 10:45; Stop 04/14/19 at 15:46; Status DC Albuterol Sulfate (Ventolin Neb Soln) 2.5 mg 1X ONCE NEB Last administered on 04/11/19at 11:54; Start 04/11/19 at 11:00; Stop 04/11/19 at 11:01; Status DC Lactobacillus Rhamnosus (Culturelle) 1 cap BID PO Last administered on 04/16/19at 21:46; Start 04/11/19 at 12:00 Furosemide (Lasix) 40 mg 1X ONCE IVP Last administered on 04/11/19at 20:18; Start 04/11/19 at 19:00; Stop 04/11/19 at 19:01; Status DC Perflutren Protein Type A Microsphe (Optison) 0.66 mg 1X ONCE IV ; Start 04/12/19 at 10:00; Stop 04/12/19 at 10:01; Status DC Furosemide (Lasix) 40 mg 1X ONCE IVP Last administered on 04/12/19at 11:44; Start 04/12/19 at 10:45; Stop 04/12/19 at 10:49; Status DC Atenolol (Tenormin) 50 mg BID PO Last administered on 04/16/19at 21:46; Start 04/13/19 at 14:00 Morphine Sulfate (Morphine Sulfate) 1 mg PRN Q10MIN PRN IV SEVERE PAIN 7-10; Start 04/14/19 at 07:00; Stop 04/15/19 at 06:59; Status DC Ringer's Solution 1,000 ml @ 30 mls/hr Q24H IV ; Start 04/14/19 at 07:00; Stop 04/14/19 at 18:59; Status DC Hydromorphone HCl (Dilaudid) 0.5 mg PRN Q10MIN PRN IV SEV PAIN, Second choice; Start 04/14/19 at 07:00; Stop 04/15/19 at 06:59; Status DC Prochlorperazine Edisylate (Compazine) 5 mg PACU PRN PRN IV NAUSEA, MRX1; Start 04/14/19 at 07:00; Stop 04/15/19 at 06:59; Status DC Furosemide (Lasix) 40 mg 1X ONCE IVP Last administered on 04/13/19at 17:35; Start 04/13/19 at 17:00; Stop 04/13/19 at 17:01; Status DC Furosemide (Lasix) 40 mg DAILY PO Last administered on 04/16/19at 09:22; Start 04/14/19 at 09:00 Atorvastatin Calcium (Lipitor) 20 mg QHS PO Last administered on 04/16/19at 21:46; Start 04/13/19 at 21:00 Insulin Human Lispro (HumaLOG) 3 units 1X ONCE SQ Last administered on 04/13/19at 20:44; Start 04/13/19 at 21:00; Stop 04/13/19 at 21:01; Status DC Propofol 20 ml @ As Directed STK-MED ONCE IV ; Start 04/14/19 at 07:35; Stop 04/14/19 at 07:36; Status DC Dexamethasone Sodium Phosphate (Decadron) 4 mg STK-MED ONCE .ROUTE ; Start 04/14/19 at 07:35; Stop 04/14/19 at 07:36; Status DC Lidocaine HCl (Lidocaine Pf 2% Vial) 5 ml STK-MED ONCE .ROUTE ; Start 04/14/19 at 07:35; Stop 04/14/19 at 07:36; Status DC Ondansetron HCl (Zofran) 4 mg STK-MED ONCE .ROUTE ; Start 04/14/19 at 07:35; Stop 04/14/19 at 07:36; Status DC Sevoflurane (Ultane) 60 ml STK-MED ONCE IH ; Start 04/14/19 at 07:36; Stop 04/14/19 at 07:36; Status DC Sevoflurane (Ultane) 15 ml STK-MED ONCE IH ; Start 04/14/19 at 09:22; Stop 04/14/19 at 09:23; Status DC Morphine Sulfate (Morphine Sulfate) 1 mg PRN Q10MIN PRN IV SEVERE PAIN 7-10; Start 04/14/19 at 09:45; Stop 04/14/19 at 20:00; Status DC Ringer's Solution 1,000 ml @ 30 mls/hr Q24H IV ; Start 04/14/19 at 09:32; Stop 04/14/19 at 21:31; Status DC Hydromorphone HCl (Dilaudid) 0.5 mg PRN Q10MIN PRN IV SEV PAIN, Second choice Last administered on 04/14/19at 10:06; Start 04/14/19 at 09:45; Stop 04/14/19 at 20:00; Status DC Prochlorperazine Edisylate (Compazine) 5 mg PACU PRN PRN IV NAUSEA, MRX1; Start 04/14/19 at 09:45; Stop 04/14/19 at 20:00; Status DC Fentanyl Citrate (Fentanyl 2ml Vial) 100 mcg STK-MED ONCE .ROUTE ; Start 04/14/19 at 09:33; Stop 04/14/19 at 09:33; Status DC Albuterol Sulfate (Ventolin Neb Soln) 2.5 mg RTQID NEB Last administered on 04/16/19at 20:32; Start 04/14/19 at 15:45 Morphine Sulfate (Morphine Sulfate) 1 mg PRN Q10MIN PRN IV SEVERE PAIN 7-10; Start 04/17/19 at 07:00; Stop 04/18/19 at 06:59 Ringer's Solution 1,000 ml @ 30 mls/hr Q24H IV ; Start 04/17/19 at 07:00; Stop 04/17/19 at 18:59 Lidocaine HCl (Xylocaine-Mpf 1% 2ml Vial) 2 ml PRN 1X PRN ID PRIOR TO IV START; Start 04/17/19 at 07:00; Stop 04/18/19 at 06:59 Hydromorphone HCl (Dilaudid) 0.5 mg PRN Q10MIN PRN IV SEV PAIN, Second choice; Start 04/17/19 at 07:00; Stop 04/18/19 at 06:59 Prochlorperazine Edisylate (Compazine) 5 mg PACU PRN PRN IV NAUSEA, MRX1; Start 04/17/19 at 07:00; Stop 04/18/19 at 06:59 Bupivacaine HCl/ Epinephrine Bitart (Sensorcaine-Epi 0.25%-1:[id number] Mpf) 30 ml 1X ONCE INJ ; Start 04/17/19 at 06:00; Stop 04/17/19 at 06:01; Status DC Active Scripts Active Reported Atenolol 50 Mg Tablet 1 Tab PO BID Vitals/I & O Vital Sign - Last 24 Hours 04/16/19 04/16/19 04/16/19 04/16/19 07:25 07:38 08:06 09:22 Pulse Ox 97 O2 Delivery Nasal Cannula Nasal Cannula Nasal Cannula Nasal Cannula O2 Flow Rate 3.0 2.0 3.0 3.0 04/16/19 04/16/19 04/16/19 04/16/19 09:22 10:56 11:00 11:01 Temp 98.1 98.1 Pulse 58 60 Resp 18 B/P (MAP) 132/74 147/62 (90) Pulse Ox 93 97 O2 Delivery Nasal Cannula Nasal Cannula Nasal Cannula O2 Flow Rate 3.0 3.0 3.0 04/16/19 04/16/19 04/16/19 04/16/19 12:24 14:10 15:00 15:29 Temp 98.0 98.0 Pulse 61 Resp 18 B/P (MAP) 136/54 (81) Pulse Ox 93 97 O2 Delivery Nasal Cannula Nasal Cannula Nasal Cannula Nasal Cannula O2 Flow Rate 3.0 3.0 2.0 3.0 04/16/19 04/16/19 04/16/19 04/16/19 15:36 16:20 16:22 17:08 O2 Delivery Nasal Cannula Nasal Cannula BiPAP/CPAP Nasal Cannula O2 Flow Rate 3.0 3.0 3.0 3.0 04/16/19 04/16/19 04/16/19 04/16/19 17:08 19:00 19:02 20:00 Temp 97.9 97.9 Pulse 62 Resp 18 B/P (MAP) 148/57 (87) Pulse Ox 95 O2 Delivery Nasal Cannula Nasal Cannula Nasal Cannula O2 Flow Rate 3.0 3.0 4.0 3.0 04/16/19 04/16/19 04/16/19 04/16/19 20:33 21:46 21:46 21:46 Pulse 62 B/P (MAP) 148/57 Pulse Ox 98 98 98 O2 Delivery Nasal Cannula Nasal Cannula Nasal Cannula O2 Flow Rate 3.0 04/16/19 04/16/19 04/16/19 04/17/19 22:21 22:50 23:17 02:01 Temp 98.0 98.0 Pulse 50 Resp 20 B/P (MAP) 147/69 (95) Pulse Ox 98 98 95 95 O2 Delivery Nasal Cannula Nasal Cannula BiPAP/CPAP Nasal Cannula O2 Flow Rate 4.0 04/17/19 04/17/19 04/17/19 04/17/19 03:04 03:09 07:00 07:08 Temp 98.0 98.1 98.0 98.1 Pulse 55 56 Resp 18 18 B/P (MAP) 144/67 (92) 155/77 (103) Pulse Ox 95 92 97 92 O2 Delivery Nasal Cannula Nasal Cannula Nasal Cannula Nasal Cannula O2 Flow Rate 4.0 3.0 04/17/19 04/17/19 07:08 09:06 Pulse Ox 92 O2 Delivery Nasal Cannula Nasal Cannula O2 Flow Rate 4.0 3.0 Intake and Output 04/16/19 04/17/19 04/17/19 16:59 00:59 08:59 Intake Total 450 ml Output Total 2200 ml 300 ml Balance -1750 ml -300 ml FLORI BAIRES MD Apr 17, 2019 09:08
--- NOTE | 2019-04-17 10:04 | PDOC ---
Infectious Disease Note Subjective Subjective pt is feeling good ROS ROS no n/v/d/sob Vital Sign Vital Signs Vital Signs Date Time Temp Pulse Resp B/P (MAP) Pulse Ox O2 Delivery O2 Flow Rate FiO2 04/17/19 09:09 Nasal Cannula 3.0 04/17/19 07:08 92 04/17/19 07:00 98.1 56 18 155/77 (103) 98.1 Physical Exam PHYSICAL EXAM GENNERAL: Propped up in bed, alert, NAD HEENT: Oral cavity, pharynx is clear. NECK: Supple LUNGS: Clear to auscultation bilaterally HEART: S1, S2. ABDOMEN: Morbidly obese, soft, nontender EXTREMITIES: Foot wounds bilaterally, dressings in place. left 3 rd toe amp site with some necrotic tissueDRESSINGS DRY, CLEAN SKIN: warm to touch NEUROLOGIC: Nonfocal. E- PICC clean Labs Lab Laboratory Tests Test 04/16/19 11:30 04/16/19 16:57 04/16/19 20:47 04/17/19 07:10 Glucose (Fingerstick) 102 mg/dL (70-99) 106 mg/dL (70-99) 163 mg/dL (70-99) 92 mg/dL (70-99) Micro foot culture neg Objective Assessment L 3 rd toe osteomyelitis - infection - despite amoxicillin/Clinda Left third toe amputation metatarsal, with toe, single 04/10 ALISIA Cephalexin allegy -swelling and throat closing leukocytosis - now s/p steroids prior to surgery Yeast skin Dm Right plantar wou Plan Plan of Care meropenem and fluconazole ,,, november d/c with iv Invanz daily at [place] Monitor for abx toxicities/side effects Probiotics Cultures neg so far Wound care as directed KATHLEEN SHERMAN MD Apr 17, 2019 10:04
[2019-04-17 11:00] VITALS: BP 162/57
[2019-04-17] MEDS: ATENOLOL 50 MG TABLET. PO SCH ×2 (11:23→21:09)
--- NOTE | 2019-04-17 12:19 | PDOC ---
Provider Note Provider Note She had extensive gangrene of the third toe with abscess as the presenting complaint. Despite initial toe with metatarsal amputation and additional debridement there was further purulent tissue requiring a second surgical debridement. There was some extension of pus during surgery to the 2nd and 4th metatarsals, but no definite osteomyelitis on surgical examination. I would like an MR with and without IV gadolinium to determine the presence or absence of osteomyelitis in the remaining metatarsal heads, so that I can plan additional surgery: i.e. should she have closure of the current wound (if there is no osteomyelitis) or will she require transmetatarsal amputation? MRI left foot with and without IV gadolinium ordered/requested. SUSANA AGUAYO MD Apr 17, 2019 12:19
[2019-04-17] MEDS: FLUCONAZOLE 200MG/100ML PREMIX 100 ML IV SCH (14:10)
[2019-04-17] MEDS: GABAPENTIN 300 MG CAPSULE. PO SCH (14:10)
[2019-04-17] MEDS: FUROSEMIDE 40 MG TABLET. PO SCH (14:10)
[2019-04-17 15:00] VITALS: BP 159/66
[2019-04-17] MEDS ORDERED: GADOTERATE 7.5 MMOL/15ML VIAL. IVP ONE (15:00)
--- NOTE | 2019-04-17 16:39 | RAD ---
MR of the left foot with and without contrast HISTORY: Possible osteomyelitis or abscess at the metatarsal heads. TECHNIQUE: Routine pre and postcontrast images are obtained. No prior studies for comparison. Correlation study: Radiographs of 04/09/2019 FINDINGS: There has been apparent amputation of the third ray at the level of the distal metatarsal shaft. Margins are well defined. There is some heterogeneous soft tissue distally presumably packing material. There has been amputation of the first toe as seen on the radiographs. The remaining bones demonstrate no evidence of acute fracture, aggressive bone destruction, significant marrow edema or acute osteomyelitis. Linear fluid collection dissecting proximally from the third toe surgical bed proximally between the flexor digitorum tendons. This is in the expected location of the third flexor digitorum tendons, which are proximally retracted and thickened. This fluid pocket or channel measures 4.5 cm anterior to posterior by 1.0 cm wide. At the level of the mid metatarsals, this fluid collection dissects through the plantar subcutaneous tissues just deep to the skin where it slightly expands resulting in the more superficial fluid collection measuring 1.5 cm wide by 2.2 cm AP by 1.9 cm height. Contents of the fluid are indeterminate for infected or sterile nature. Mild fluid within the first MTP joint. Lisfranc ligament complex is intact as is tarsometatarsal alignment. There is diffuse soft tissue edema and enhancement. Generalized muscle atrophy with fatty infiltration. The plantar fluid collections demonstrate enhancing alcaraz with adjacent soft tissue enhancement. IMPRESSION: 1. Amputation of the third ray at the distal third metatarsal. 2. Linear fluid collection dissecting from the surgical bed proximally, in the expected location of the third digitorum flexor tendons which are proximally retracted. Fluid collection is of uncertain sterility, could represent an abscess, with surrounding enhancement or cellulitis. 3. No evidence of acute osteomyelitis. Electronically signed by: Isma Travis MD (04/17/2019 4:36 PM) [id number]
--- NOTE | 2019-04-17 17:41 | PDOC ---
Provider Note Provider Note MRI report reviewed, images independently reviewed. Fluid collection noted series 12 image 13, the other metatarsals appear healthy series 6 image 9. I can readdress that plantar fluid collection at additional surgery but do not believe it is infected fluid based on my recollection, it is likely dependent irrigation fluid or edema fluid. This appears appropriate for secondary closure without additional amputation. [facility] [address] [place] [address] IMAGING REPORT Signed PATIENT: VANNA CARBAJAL ACCOUNT: [id number] : 1960 LOCATION: [address] [place] [address] AGE: 58 SEX: F EXAM STATUS: ADM IN ORD. PHYSICIAN: SUSANA AGUAYO MD REASON: eval for osteomyelitis/abscess left foot/metatarsal heads PROCEDURE: LOWER EXT NON JOINT WO/W LT MR of the left foot with and without contrast HISTORY: Possible osteomyelitis or abscess at the metatarsal heads. TECHNIQUE: Routine pre and postcontrast images are obtained. No prior studies for comparison. Correlation study: Radiographs of 04/09/2019 FINDINGS: There has been apparent amputation of the third ray at the level of the distal metatarsal shaft. Margins are well defined. There is some heterogeneous soft tissue distally presumably packing material. There has been amputation of the first toe as seen on the radiographs. The remaining bones demonstrate no evidence of acute fracture, aggressive bone destruction, significant marrow edema or acute osteomyelitis. Linear fluid collection dissecting proximally from the third toe surgical bed proximally between the flexor digitorum tendons. This is in the expected location of the third flexor digitorum tendons, which are proximally retracted and thickened. This fluid pocket or channel measures 4.5 cm anterior to posterior by 1.0 cm wide. At the level of the mid metatarsals, this fluid collection dissects through the plantar subcutaneous tissues just deep to the skin where it slightly expands resulting in the more superficial fluid collection measuring 1.5 cm wide by 2.2 cm AP by 1.9 cm height. Contents of the fluid are indeterminate for infected or sterile nature. Mild fluid within the first MTP joint. Lisfranc ligament complex is intact as is tarsometatarsal alignment. There is diffuse soft tissue edema and enhancement. Generalized muscle atrophy with fatty infiltration. The plantar fluid collections demonstrate enhancing alcaraz with adjacent soft tissue enhancement. IMPRESSION: 1. Amputation of the third ray at the distal third metatarsal. 2. Linear fluid collection dissecting from the surgical bed proximally, in the expected location of the third digitorum flexor tendons which are proximally retracted. Fluid collection is of uncertain sterility, could represent an abscess, with surrounding enhancement or cellulitis. 3. No evidence of acute osteomyelitis. Electronically signed by: Isma Travis MD (04/17/2019 4:36 PM) [id number] DICTATED and SIGNED BY: ISMA TRAVIS MD DATE: 04/17/19 1636 SUSANA AGUAYO MD Apr 17, 2019 17:41
[2019-04-17 19:20] VITALS: BP 148/64
[2019-04-17] MEDS: ASPIRIN ENTERIC COATED 325 MG TABLET.DR. PO SCH (20:59)
[2019-04-17] MEDS: ATORVASTATIN CALCIUM 20 MG TABLET PO SCH (20:59)
[2019-04-17] MEDS: GABAPENTIN 400 MG CAPSULE. PO SCH (21:09)
[2019-04-17 23:09] VITALS: BP 163/63
[2019-04-18] MEDS: fentaNYL PF VIAL 100 MCG/2 ML VIAL IV PRN ×2 (02:38→15:34)
[2019-04-18 03:30] VITALS: BP 159/70
[2019-04-18 05:39] LABS: BASO # 0.1 x10^3/uL (0.0-0.2); BASO % 1 % (0-3); EOS # 0.4 x10^3/uL (0.0-0.7); EOS % 5 % (0-3); HEMATOCRIT 36.6 % (36.0-47.0); LYMPH # 1.7 x10^3/uL (1.0-4.8); LYMPH % 20 % (24-48); MEAN CORPUSCULAR HEMOGLOBIN 29 pg (25-35); MEAN CORPUSCULAR HGB CONC 33 g/dL (31-37); MEAN CORPUSCULAR VOLUME 88 fL (79-100); MONO # 0.6 x10^3/uL (0.0-1.1); MONO % 7 % (0-9); NEUT # 5.8 x10^3/uL (1.8-7.7); NEUT % 69 % (31-73); PLATELET COUNT 319 x10^3/uL (140-400); RED BLOOD COUNT 4.18 x10^6/uL (3.50-5.40); WHITE BLOOD COUNT 8.4 x10^3/uL (4.0-11.0)
[2019-04-18] MEDS: MEROPENEM 1 GM in IV NORMAL SALINE 100ML 100 ML IV SCH ×3 (05:52→21:17)
[2019-04-18 05:54] LABS: ALBUMIN 2.2 g/dL (3.4-5.0); ALBUMIN/GLOBULIN RATIO 0.5 (1.0-1.7); ALK PHOS 117 U/L (46-116); ALT (SGPT) 18 U/L (14-59); AST (SGOT) 8 U/L (15-37); BLOOD UREA NITROGEN 18 mg/dL (7-20); BUN/CREATININE RATIO 30 (6-20); CALCIUM 9.4 mg/dL (8.5-10.1); CARBON DIOXIDE 44 mmol/L (21-32); CHLORIDE 99 mmol/L (98-107); CREATININE 0.6 mg/dL (0.6-1.0); GFR 102.7; GLUCOSE 130 mg/dL (70-99); POTASSIUM 4.6 mmol/L (3.5-5.1); SODIUM 140 mmol/L (136-145); TOTAL BILIRUBIN 0.4 mg/dL (0.2-1.0); TOTAL PROTEIN 6.5 g/dL (6.4-8.2)
[2019-04-18 07:00] VITALS: BP 143/64
[2019-04-18] MEDS: ALBUTEROL SULFATE 2.5 MG/3 ML NEBU. NEB SCH ×4 (07:20→20:00)
[2019-04-18] MEDS: INSULIN LISPRO 300 UNITS/3 ML VIAL. SQ SCH ×6 (08:00→17:21)
[2019-04-18] MEDS: LACTOBACILLUS RHAMNOSUS GG 1 CAPSULE. PO SCH ×2 (09:41→21:12)
[2019-04-18] MEDS: ATENOLOL 50 MG TABLET. PO SCH ×2 (09:41→21:13)
[2019-04-18] MEDS: FUROSEMIDE 40 MG TABLET. PO SCH (09:42)
[2019-04-18] MEDS: GABAPENTIN 300 MG CAPSULE. PO SCH ×3 (09:42→21:12)
[2019-04-18] MEDS: INSULIN GLARGINE SYRINGE. SQ SCH ×2 (09:51→21:14)
[2019-04-18] MEDS: HYDROcodone/APAP 5/325MG 1 TAB TABLET PO PRN ×3 (10:12→21:12)
--- NOTE | 2019-04-18 10:43 | PDOC ---
CARDIO Progress Notes Date and Time Date of Service 04/18/19 Time of Evaluation 1015 Subjective Subjective: No Chest Pain, No shortness of breath, No Palpitations Vitals Vitals Vital Signs Date Time Temp Pulse Resp B/P (MAP) Pulse Ox O2 Delivery O2 Flow Rate FiO2 04/18/19 10:12 Nasal Cannula 04/18/19 09:51 50 143/64 04/18/19 07:22 96 3.0 04/18/19 07:00 98.3 16 98.3 Weight Weight [ ] Input and Output Intake and Output Intake and Output 04/18/19 07:00 Output Total 2300 ml Balance -2300 ml Output Urine Total 2300 ml # Bowel Movements 2 Laboratory Labs Laboratory Tests Test 04/17/19 11:11 04/17/19 17:02 04/17/19 21:20 04/18/19 05:05 Glucose (Fingerstick) 95 mg/dL (70-99) 120 mg/dL (70-99) 214 mg/dL (70-99) White Blood Count 8.4 x10^3/uL (4.0-11.0) Red Blood Count 4.18 x10^6/uL (3.50-5.40) Hemoglobin 12.0 g/dL (12.0-15.5) Hematocrit 36.6 % (36.0-47.0) Mean Corpuscular Volume 88 fL (79-100) Mean Corpuscular Hemoglobin 29 pg (25-35) Mean Corpuscular Hemoglobin Concent 33 g/dL (31-37) Red Cell Distribution Width 17.0 % (11.5-14.5) Platelet Count 319 x10^3/uL (140-400) Neutrophils (%) (Auto) 69 % (31-73) Lymphocytes (%) (Auto) 20 % (24-48) Monocytes (%) (Auto) 7 % (0-9) Eosinophils (%) (Auto) 5 % (0-3) Basophils (%) (Auto) 1 % (0-3) Neutrophils # (Auto) 5.8 x10^3/uL (1.8-7.7) Lymphocytes # (Auto) 1.7 x10^3/uL (1.0-4.8) Monocytes # (Auto) 0.6 x10^3/uL (0.0-1.1) Eosinophils # (Auto) 0.4 x10^3/uL (0.0-0.7) Basophils # (Auto) 0.1 x10^3/uL (0.0-0.2) Sodium Level 140 mmol/L (136-145) Potassium Level 4.6 mmol/L (3.5-5.1) Chloride Level 99 mmol/L (98-107) Carbon Dioxide Level 44 mmol/L (21-32) Anion Gap (6-14) Blood Urea Nitrogen 18 mg/dL (7-20) Creatinine 0.6 mg/dL (0.6-1.0) Estimated GFR (Cockcroft-Gault) 102.7 BUN/Creatinine Ratio 30 (6-20) Glucose Level 130 mg/dL (70-99) Calcium Level 9.4 mg/dL (8.5-10.1) Total Bilirubin 0.4 mg/dL (0.2-1.0) Aspartate Amino Transf (AST/SGOT) 8 U/L (15-37) Alanine Aminotransferase (ALT/SGPT) 18 U/L (14-59) Alkaline Phosphatase 117 U/L (46-116) Total Protein 6.5 g/dL (6.4-8.2) Albumin 2.2 g/dL (3.4-5.0) Albumin/Globulin Ratio 0.5 (1.0-1.7) Test 04/18/19 07:42 Glucose (Fingerstick) 123 mg/dL (70-99) Microbiology Micro Microbiology 04/14/19 Anaerobic/Aerobic Culture, Resulted Pending 04/14/19 Anaerobic Culture Result 1 (DEANNE), Resulted Pending 04/14/19 Aerobic Culture - Preliminary, Resulted 04/14/19 Aerobic Culture Result 1 (DEANNE) - Preliminary, Resulted 04/14/19 Gram Stain - Final, Resulted 04/14/19 Gram Stain Result 1 (DEANNE) - Final, Resulted 04/14/19 Gram Stain Result 2 (DEANNE) - Final, Resulted 04/10/19 Blood Culture - Final, Complete NO GROWTH AFTER 5 DAYS Physical Exam HEENT: Neck Supple W Full Motion Chest: Symmetric LUNGS: Other (basilar crackles) Heart: S1S2, RRR Abdomen: Soft N/T, Other (obese) Extremities: Other (left foot wound S/P middle toe amputation, wound vac intact. , right foot wound with intact dressing. trace- 1+ bilateral LE edema) Neurology: alert, oriented, follow commands Assessment Assessment 1. Osteomyelitis/gangrene: S/P Left third toe metatarsal amputation and additional debridement. Wound vac in place. as per ortho 2. PAD; duplex with probable mild to moderate LLE arterial disease, no high grade focal stenosis identified. 3. Acute diastolic CHF: EF and WM nml. Clinically compensated 4. Hypertension; controlled 5. Hyperlipemia; statin 6. Diabetes, II; as per PCP 7. ALISIA; resolved 8. CAD: PCI/PJ to LAD, clinically stable 9. CAREY: CPAP use Recommendations Continue with secondary prevention. Antibiotics as per ID Follow ortho recommendations' Follow up with Dr. Cole as scheduled THIAGO ACUNA APRN Apr 18, 2019 10:43
--- NOTE | 2019-04-18 10:44 | PDOC ---
Infectious Disease Note Subjective Subjective pt is feeling good ROS ROS no n/v/d/ Vital Sign Vital Signs Vital Signs Date Time Temp Pulse Resp B/P (MAP) Pulse Ox O2 Delivery O2 Flow Rate FiO2 04/18/19 10:12 Nasal Cannula 04/18/19 09:51 50 143/64 04/18/19 07:22 96 3.0 04/18/19 07:00 98.3 16 98.3 Physical Exam PHYSICAL EXAM GENNERAL: Propped up in bed, alert, NAD HEENT: Oral cavity, pharynx is clear. NECK: Supple LUNGS: Clear to auscultation bilaterally HEART: S1, S2. ABDOMEN: Morbidly obese, soft, nontender EXTREMITIES: Foot wounds bilaterally, dressings in place. left 3 rd toe amp site with some necrotic tissueDRESSINGS DRY, CLEAN SKIN: warm to touch NEUROLOGIC: Nonfocal. [facility] clean Labs Lab Laboratory Tests Test 04/17/19 11:11 04/17/19 17:02 04/17/19 21:20 04/18/19 05:05 Glucose (Fingerstick) 95 mg/dL (70-99) 120 mg/dL (70-99) 214 mg/dL (70-99) White Blood Count 8.4 x10^3/uL (4.0-11.0) Red Blood Count 4.18 x10^6/uL (3.50-5.40) Hemoglobin 12.0 g/dL (12.0-15.5) Hematocrit 36.6 % (36.0-47.0) Mean Corpuscular Volume 88 fL (79-100) Mean Corpuscular Hemoglobin 29 pg (25-35) Mean Corpuscular Hemoglobin Concent 33 g/dL (31-37) Red Cell Distribution Width 17.0 % (11.5-14.5) Platelet Count 319 x10^3/uL (140-400) Neutrophils (%) (Auto) 69 % (31-73) Lymphocytes (%) (Auto) 20 % (24-48) Monocytes (%) (Auto) 7 % (0-9) Eosinophils (%) (Auto) 5 % (0-3) Basophils (%) (Auto) 1 % (0-3) Neutrophils # (Auto) 5.8 x10^3/uL (1.8-7.7) Lymphocytes # (Auto) 1.7 x10^3/uL (1.0-4.8) Monocytes # (Auto) 0.6 x10^3/uL (0.0-1.1) Eosinophils # (Auto) 0.4 x10^3/uL (0.0-0.7) Basophils # (Auto) 0.1 x10^3/uL (0.0-0.2) Sodium Level 140 mmol/L (136-145) Potassium Level 4.6 mmol/L (3.5-5.1) Chloride Level 99 mmol/L (98-107) Carbon Dioxide Level 44 mmol/L (21-32) Anion Gap (6-14) Blood Urea Nitrogen 18 mg/dL (7-20) Creatinine 0.6 mg/dL (0.6-1.0) Estimated GFR (Cockcroft-Gault) 102.7 BUN/Creatinine Ratio 30 (6-20) Glucose Level 130 mg/dL (70-99) Calcium Level 9.4 mg/dL (8.5-10.1) Total Bilirubin 0.4 mg/dL (0.2-1.0) Aspartate Amino Transf (AST/SGOT) 8 U/L (15-37) Alanine Aminotransferase (ALT/SGPT) 18 U/L (14-59) Alkaline Phosphatase 117 U/L (46-116) Total Protein 6.5 g/dL (6.4-8.2) Albumin 2.2 g/dL (3.4-5.0) Albumin/Globulin Ratio 0.5 (1.0-1.7) Test 04/18/19 07:42 Glucose (Fingerstick) 123 mg/dL (70-99) Micro foot culture neg Objective Assessment L 3 rd toe osteomyelitis - infection - despite amoxicillin/Clinda Left third toe amputation metatarsal, with toe, single 04/10 ALISIA Cephalexin allegy -swelling and throat closing leukocytosis - now s/p steroids prior to surgery Yeast skin Dm Right plantar wou Plan Plan of Care meropenem and fluconazole ,,, november d/c with iv Invanz daily at [place] Monitor for abx toxicities/side effects Probiotics Cultures neg so far Wound care as directed KATHLEEN SHERMAN MD Apr 18, 2019 10:44
[2019-04-18 11:00] VITALS: BP 125/53
--- NOTE | 2019-04-18 11:34 | PDOC ---
PROGRESS NOTES Chief Complaint Chief Complaint 1. LEft THIRD TOE Gangrene -s/p amputation 04/10 (POD # ) 2. RT heel ulcer - wound care 3. NOnosteo 3rd toe digit s/p clean ray amputation 4. DM with hgba1c 9.7 and neuropathy and target organ damage - hx osteo, partial amputation big toe 5. Obesity, morbid BMI 53 6. HTN - controlled 7,. Lymphedema 8. POst op confusion, transient 9, POst op mild hyperkalemia 5.5 10. Post op ALISIA, VMN 11. diastolic CHF echo 55% 12. Left rotator cuff calcific tendinopathy. 13. severe protein-caloric malnutrition 14 PULMONARY HYPERTENSION PA pressure 50 15. Right plantar wound s/p debridement devitalized dermis, 04/14 History of Present Illness History of Present Illness SHe has some care issues bec she cant make it to the potty bedside bec of her weight SHe requests kim, but i said no - try bed shafer Ortho note mentions possible second wound closure She has a left foot wound vac -- IV mERREM and is SELF PAY SHE HAD A GANGRENOUS 3rd toe that needed amputation no doubt INterval scan shows no OM She developed congestion hospital stay # 1 - got lasix IV and now on PO Echo normal, EF i provided copy BS better Long discussion with her about losing weight, HELPING Herself turn q2 and HELPING herself do the bed pain herself PLAN: IV merrem, keep current insulin regimen INterval CXR to see resolution CHF COnt PO lasix Social nightmare, needs rebab, wound care, wound vac but is SELF PAY time 33 mins Vitals Vitals Vital Signs Date Time Temp Pulse Resp B/P (MAP) Pulse Ox O2 Delivery O2 Flow Rate FiO2 04/18/19 10:12 Nasal Cannula 04/18/19 09:51 50 143/64 04/18/19 07:22 96 3.0 04/18/19 07:00 98.3 16 98.3 Physical Exam Physical Exam GENNERAL: Propped up in bed, alert, NAD HEENT: Oral cavity, pharynx is clear. NECK: Supple LUNGS: Clear to auscultation bilaterally HEART: S1, S2. ABDOMEN: Morbidly obese, soft, nontender EXTREMITIES: Foot wounds bilaterally, dressings in place. left 3 rd toe amp site with some necrotic tissueDRESSINGS DRY, CLEAN SKIN: warm to touch NEUROLOGIC: Nonfocal. RUE- PICC clean General: Alert, Oriented X3, Cooperative, No acute distress Heart: Regular rate, Normal S1, Normal S2, No murmurs Lungs: Clear Abdomen: Normal bowel sounds, Soft, No tenderness Extremities: No clubbing, No cyanosis, Other (left leg dressing, rt leg dressing, amputated toe wound vac PLANTAR ASPECT SWOLLEN) Skin: Other (left foot wound with wound vac and right foot wound) Labs LABS Laboratory Tests Test 04/17/19 17:02 04/17/19 21:20 04/18/19 05:05 04/18/19 07:42 Glucose (Fingerstick) 120 mg/dL (70-99) 214 mg/dL (70-99) 123 mg/dL (70-99) White Blood Count 8.4 x10^3/uL (4.0-11.0) Red Blood Count 4.18 x10^6/uL (3.50-5.40) Hemoglobin 12.0 g/dL (12.0-15.5) Hematocrit 36.6 % (36.0-47.0) Mean Corpuscular Volume 88 fL (79-100) Mean Corpuscular Hemoglobin 29 pg (25-35) Mean Corpuscular Hemoglobin Concent 33 g/dL (31-37) Red Cell Distribution Width 17.0 % (11.5-14.5) Platelet Count 319 x10^3/uL (140-400) Neutrophils (%) (Auto) 69 % (31-73) Lymphocytes (%) (Auto) 20 % (24-48) Monocytes (%) (Auto) 7 % (0-9) Eosinophils (%) (Auto) 5 % (0-3) Basophils (%) (Auto) 1 % (0-3) Neutrophils # (Auto) 5.8 x10^3/uL (1.8-7.7) Lymphocytes # (Auto) 1.7 x10^3/uL (1.0-4.8) Monocytes # (Auto) 0.6 x10^3/uL (0.0-1.1) Eosinophils # (Auto) 0.4 x10^3/uL (0.0-0.7) Basophils # (Auto) 0.1 x10^3/uL (0.0-0.2) Sodium Level 140 mmol/L (136-145) Potassium Level 4.6 mmol/L (3.5-5.1) Chloride Level 99 mmol/L (98-107) Carbon Dioxide Level 44 mmol/L (21-32) Anion Gap (6-14) Blood Urea Nitrogen 18 mg/dL (7-20) Creatinine 0.6 mg/dL (0.6-1.0) Estimated GFR (Cockcroft-Gault) 102.7 BUN/Creatinine Ratio 30 (6-20) Glucose Level 130 mg/dL (70-99) Calcium Level 9.4 mg/dL (8.5-10.1) Total Bilirubin 0.4 mg/dL (0.2-1.0) Aspartate Amino Transf (AST/SGOT) 8 U/L (15-37) Alanine Aminotransferase (ALT/SGPT) 18 U/L (14-59) Alkaline Phosphatase 117 U/L (46-116) Total Protein 6.5 g/dL (6.4-8.2) Albumin 2.2 g/dL (3.4-5.0) Albumin/Globulin Ratio 0.5 (1.0-1.7) Review of Systems Review of Systems weak, incontinent, no fevers, tolerable pain, no cp, soa,. or headache or other 14 pt Comment Review of Relevant I have reviewed the following items adrienne (where applicable) has been applied. Labs Laboratory Tests Test 04/16/19 11:30 04/16/19 16:57 04/16/19 20:47 04/17/19 07:10 Glucose (Fingerstick) 102 mg/dL (70-99) 106 mg/dL (70-99) 163 mg/dL (70-99) 92 mg/dL (70-99) Test 04/17/19 11:11 04/17/19 17:02 04/17/19 21:20 04/18/19 05:05 Glucose (Fingerstick) 95 mg/dL (70-99) 120 mg/dL (70-99) 214 mg/dL (70-99) White Blood Count 8.4 x10^3/uL (4.0-11.0) Red Blood Count 4.18 x10^6/uL (3.50-5.40) Hemoglobin 12.0 g/dL (12.0-15.5) Hematocrit 36.6 % (36.0-47.0) Mean Corpuscular Volume 88 fL (79-100) Mean Corpuscular Hemoglobin 29 pg (25-35) Mean Corpuscular Hemoglobin Concent 33 g/dL (31-37) Red Cell Distribution Width 17.0 % (11.5-14.5) Platelet Count 319 x10^3/uL (140-400) Neutrophils (%) (Auto) 69 % (31-73) Lymphocytes (%) (Auto) 20 % (24-48) Monocytes (%) (Auto) 7 % (0-9) Eosinophils (%) (Auto) 5 % (0-3) Basophils (%) (Auto) 1 % (0-3) Neutrophils # (Auto) 5.8 x10^3/uL (1.8-7.7) Lymphocytes # (Auto) 1.7 x10^3/uL (1.0-4.8) Monocytes # (Auto) 0.6 x10^3/uL (0.0-1.1) Eosinophils # (Auto) 0.4 x10^3/uL (0.0-0.7) Basophils # (Auto) 0.1 x10^3/uL (0.0-0.2) Sodium Level 140 mmol/L (136-145) Potassium Level 4.6 mmol/L (3.5-5.1) Chloride Level 99 mmol/L (98-107) Carbon Dioxide Level 44 mmol/L (21-32) Anion Gap (6-14) Blood Urea Nitrogen 18 mg/dL (7-20) Creatinine 0.6 mg/dL (0.6-1.0) Estimated GFR (Cockcroft-Gault) 102.7 BUN/Creatinine Ratio 30 (6-20) Glucose Level 130 mg/dL (70-99) Calcium Level 9.4 mg/dL (8.5-10.1) Total Bilirubin 0.4 mg/dL (0.2-1.0) Aspartate Amino Transf (AST/SGOT) 8 U/L (15-37) Alanine Aminotransferase (ALT/SGPT) 18 U/L (14-59) Alkaline Phosphatase 117 U/L (46-116) Total Protein 6.5 g/dL (6.4-8.2) Albumin 2.2 g/dL (3.4-5.0) Albumin/Globulin Ratio 0.5 (1.0-1.7) Test 04/18/19 07:42 Glucose (Fingerstick) 123 mg/dL (70-99) Laboratory Tests Test 04/17/19 17:02 04/17/19 21:20 04/18/19 05:05 04/18/19 07:42 Glucose (Fingerstick) 120 mg/dL (70-99) 214 mg/dL (70-99) 123 mg/dL (70-99) White Blood Count 8.4 x10^3/uL (4.0-11.0) Red Blood Count 4.18 x10^6/uL (3.50-5.40) Hemoglobin 12.0 g/dL (12.0-15.5) Hematocrit 36.6 % (36.0-47.0) Mean Corpuscular Volume 88 fL (79-100) Mean Corpuscular Hemoglobin 29 pg (25-35) Mean Corpuscular Hemoglobin Concent 33 g/dL (31-37) Red Cell Distribution Width 17.0 % (11.5-14.5) Platelet Count 319 x10^3/uL (140-400) Neutrophils (%) (Auto) 69 % (31-73) Lymphocytes (%) (Auto) 20 % (24-48) Monocytes (%) (Auto) 7 % (0-9) Eosinophils (%) (Auto) 5 % (0-3) Basophils (%) (Auto) 1 % (0-3) Neutrophils # (Auto) 5.8 x10^3/uL (1.8-7.7) Lymphocytes # (Auto) 1.7 x10^3/uL (1.0-4.8) Monocytes # (Auto) 0.6 x10^3/uL (0.0-1.1) Eosinophils # (Auto) 0.4 x10^3/uL (0.0-0.7) Basophils # (Auto) 0.1 x10^3/uL (0.0-0.2) Sodium Level 140 mmol/L (136-145) Potassium Level 4.6 mmol/L (3.5-5.1) Chloride Level 99 mmol/L (98-107) Carbon Dioxide Level 44 mmol/L (21-32) Anion Gap (6-14) Blood Urea Nitrogen 18 mg/dL (7-20) Creatinine 0.6 mg/dL (0.6-1.0) Estimated GFR (Cockcroft-Gault) 102.7 BUN/Creatinine Ratio 30 (6-20) Glucose Level 130 mg/dL (70-99) Calcium Level 9.4 mg/dL (8.5-10.1) Total Bilirubin 0.4 mg/dL (0.2-1.0) Aspartate Amino Transf (AST/SGOT) 8 U/L (15-37) Alanine Aminotransferase (ALT/SGPT) 18 U/L (14-59) Alkaline Phosphatase 117 U/L (46-116) Total Protein 6.5 g/dL (6.4-8.2) Albumin 2.2 g/dL (3.4-5.0) Albumin/Globulin Ratio 0.5 (1.0-1.7) Microbiology 04/14/19 Anaerobic/Aerobic Culture, Resulted Pending 04/14/19 Anaerobic Culture Result 1 (DEANNE), Resulted Pending 04/14/19 Aerobic Culture - Preliminary, Resulted 04/14/19 Aerobic Culture Result 1 (DEANNE) - Preliminary, Resulted 04/14/19 Gram Stain - Final, Resulted 04/14/19 Gram Stain Result 1 (DEANNE) - Final, Resulted 04/14/19 Gram Stain Result 2 (DEANNE) - Final, Resulted 04/10/19 Blood Culture - Final, Complete NO GROWTH AFTER 5 DAYS Medications Current Medications Vancomycin HCl (Vanco Per Pharmacy) 1 each PRN DAILY PRN MC SEE COMMENTS Last administered on 04/10/19at 03:41; Start 04/09/19 at 22:30; Stop 04/10/19 at 12:36; Status DC Piperacillin Sod/ Tazobactam Sod (Zosyn Per Pharmacy) 1 each PRN DAILY PRN MC SEE COMMENTS; Start 04/09/19 at 22:30; Stop 04/10/19 at 12:35; Status DC Sodium Chloride 1,000 ml @ 100 mls/hr Q10H IV Last administered on 04/11/19at 05:23; Start 04/09/19 at 23:00; Stop 04/11/19 at 09:26; Status DC Acetaminophen/ Hydrocodone Bitart (Lortab 5/325) 1 tab PRN Q4HRS PRN PO MODERATE PAIN 4-6 Last administered on 04/17/19at 23:01; Start 04/09/19 at 22:30 Acetaminophen/ Hydrocodone Bitart (Lortab 5/325) 2 tab PRN Q4HRS PRN PO SEVERE PAIN 7-10 Last administered on 04/18/19at 10:12; Start 04/09/19 at 22:30 Insulin Glargine (Lantus Syringe) 70 unit QHS SQ Last administered on 04/17/19at 23:01; Start 04/09/19 at 23:00 Insulin Human Lispro (HumaLOG) 20 units 1X ONCE SQ Last administered on at 23:02; Start 04/09/19 at 23:00; Stop 04/09/19 at 23:01; Status DC Insulin Human Lispro (HumaLOG) 0-7 UNITS TIDWMEALS SQ ; Start 04/10/19 at 08:00; Stop 04/10/19 at 08:08; Status DC Dextrose (Dextrose 50%-Water Syringe) 12.5 gm PRN Q15MIN PRN IV SEE COMMENTS; Start 04/09/19 at 22:30; Status Cancel Dextrose 250 ml PRN Q15MIN PRN IV SEE COMMENTS; Start 04/09/19 at 22:30; [facility] Cancel Insulin Human Lispro (HumaLOG) 26 units TIDAC SQ Last administered on 04/18/19at 09:51; Start 04/10/19 at 07:30 Piperacillin Sod/ Tazobactam Sod 3.375 gm/Sodium Chloride 50 ml @ 100 mls/hr Q6HRS IV Last administered on 04/10/19at 11:35; Start 04/10/19 at 00:00; Stop 04/10/19 at 12:35; Status DC Gabapentin (Neurontin) 900 mg [id number] PO Last administered on 04/18/19at 09:51; Start 04/10/19 at 09:00 Gabapentin (Neurontin) 1,200 mg HS PO Last administered on 04/17/19at 21:09; Start 04/10/19 at 21:00 Atenolol (Tenormin) 40 mg DAILY PO ; Start 04/10/19 at 09:00; Status UNV Vancomycin HCl 2 gm/Sodium Chloride 500 ml @ 250 mls/hr Q12H IV Last administered on 04/10/19at 05:20; Start 04/10/19 at 05:00; Stop 04/10/19 at 12:36; Status DC Vancomycin HCl (Vancomycin Trough Level) 1 each 1X ONCE MC ; Start 04/11/19 at 04:30; Stop 04/11/19 at 04:31; Status Cancel Insulin Human Lispro (HumaLOG) 0-9 UNITS TIDWMEALS SQ Last administered on 04/15/19at 12:03; Start 04/10/19 at 12:00 Dextrose (Dextrose 50%-Water Syringe) 12.5 gm PRN Q15MIN PRN IV SEE COMMENTS; Start 04/10/19 at 08:15 Dextrose 250 ml PRN Q15MIN PRN IV SEE COMMENTS; Start 04/10/19 at 08:15 Acetaminophen (Tylenol) 500 mg PRN Q6HRS PRN PO MILD PAIN / TEMP Last administered on 04/12/19at 13:04; Start 04/10/19 at 08:15 Ondansetron HCl (Zofran) 4 mg PRN Q6HRS PRN IV NAUSEA/VOMITING Last administered on 04/13/19at 12:24; Start 04/10/19 at 08:15 Fentanyl Citrate (Fentanyl 2ml Vial) 50 mcg PRN Q2HR PRN IV PAIN Last administered on 04/18/19at 02:38; Start 04/10/19 at 08:15 Sodium Chloride ([place] Saline Nasal) 1 nadeem PRN Q2HRS PRN NS NASAL CONGESTION Last administered on 04/10/19at 15:54; Start 04/10/19 at 11:45 Fluconazole/ Sodium Chloride 100 ml @ 100 mls/hr Q24H IV Last administered on 04/17/19at 14:12; Start 04/10/19 at 13:00 Meropenem 1 gm/ Sodium Chloride 100 ml @ 200 mls/hr Q8HRS IV Last administered on 04/18/19at 05:52; Start 04/10/19 at 14:00 Daptomycin 900 mg/ Sodium Chloride 50 ml @ 100 mls/hr Q24H IV Last administered on 04/16/19at 12:24; Start 04/10/19 at 13:00; Stop 04/17/19 at 10:05; Status DC Fentanyl Citrate (Fentanyl 2ml Vial) 25 mcg PRN Q5MIN PRN IV MILD PAIN 1-3; Start 04/10/19 at 13:15; Stop 04/11/19 at 11:49; Status DC Fentanyl Citrate (Fentanyl 2ml Vial) 50 mcg PRN Q5MIN PRN IV MODERATE TO SEVERE PAIN; Start 04/10/19 at 13:15; Stop 04/11/19 at 11:49; Status DC Morphine Sulfate (Morphine Sulfate) 1 mg PRN Q10MIN PRN IV SEVERE PAIN 7-10; Start 04/10/19 at 13:15; Stop 04/11/19 at 11:50; Status DC Ringer's Solution 1,000 ml @ 30 mls/hr Q24H IV ; Start 04/10/19 at 13:14; Stop 04/11/19 at 01:13; Status DC Hydromorphone HCl (Dilaudid) 0.5 mg PRN Q10MIN PRN IV SEV PAIN, Second choice; Start 04/10/19 at 13:15; Stop 04/11/19 at 11:50; Status DC Prochlorperazine Edisylate (Compazine) 5 mg PACU PRN PRN IV NAUSEA, MRX1; Start 04/10/19 at 13:15; Stop 04/11/19 at 11:50; Status DC Fentanyl Citrate (Fentanyl 2ml Vial) 100 mcg STK-MED ONCE .ROUTE ; Start 04/10/19 at 13:20; Stop 04/10/19 at 13:21; Status DC Sevoflurane (Ultane) 30 ml STK-MED ONCE IH ; Start 04/10/19 at 13:20; Stop 04/10/19 at 13:21; Status DC Propofol 20 ml @ As Directed STK-MED ONCE IV ; Start 04/10/19 at 13:20; Stop 04/10/19 at 13:21; Status DC Dexamethasone Sodium Phosphate (Decadron) 4 mg STK-MED ONCE .ROUTE ; Start 04/10/19 at 13:21; Stop 04/10/19 at 13:21; Status DC Lidocaine HCl (Lidocaine Pf 2% Vial) 5 ml STK-MED ONCE .ROUTE ; Start 04/10/19 at 13:21; Stop 04/10/19 at 13:21; Status DC Ondansetron HCl (Zofran) 4 mg STK-MED ONCE .ROUTE ; Start 04/10/19 at 13:21; Stop 04/10/19 at 13:21; Status DC Phenylephrine HCl (PHENYLEPHRINE in 0.9% NACL PF) 1 mg STK-MED ONCE IV ; Start 04/10/19 at 14:27; Stop 04/10/19 at 14:27; Status DC Aspirin (Ecotrin) 325 mg QHS PO Last administered on 04/17/19at 21:01; Start 04/10/19 at 21:00 Oxycodone/ Acetaminophen (Percocet 5/325) 1 tab PRN Q4HRS PRN PO MODERATE PAIN, LAST OPTION Last administered on 04/14/19at 15:41; Start 04/10/19 at 15:15; Stop 04/15/19 at 16:17; Status DC Oxycodone/ Acetaminophen (Percocet 5/325) 2 tab PRN Q4HRS PRN PO SEVERE PAIN, LAST OPTION Last administered on 04/14/19at 20:33; Start 04/10/19 at 15:30; Stop 04/15/19 at 16:17; Status DC Insulin Glargine (Lantus Syringe) 30 unit DAILY SQ Last administered on 04/18/19at 09:51; Start 04/11/19 at 09:00 Sodium Polystyrene Sulfonate (Kayexalate) 15 gm 1X ONCE PO Last administered on 04/11/19at 10:24; Start 04/11/19 at 09:00; Stop 04/11/19 at 09:01; Status DC Meclizine HCl (Antivert) 12.5 mg PRN Q6HRS PRN PO DIZZINESS Last administered on 04/11/19at 10:24; Start 04/11/19 at 09:30 Albuterol Sulfate (Ventolin Neb Soln) 2.5 mg PRN Q4HRS PRN NEB SHORTNESS OF BREATH Last administered on 04/14/19at 15:30; Start 04/11/19 at 10:45; Stop 04/14/19 at 15:46; Status DC Albuterol Sulfate (Ventolin Neb Soln) 2.5 mg 1X ONCE NEB Last administered on 04/11/19at 11:54; Start 04/11/19 at 11:00; Stop 04/11/19 at 11:01; Status DC Lactobacillus Rhamnosus (Culturelle) 1 cap BID PO Last administered on 04/18/19 09:51; Start 04/11/19 at 12:00 Furosemide (Lasix) 40 mg 1X ONCE IVP Last administered on 04/11/19at 20:18; Start 04/11/19 at 19:00; Stop 04/11/19 at 19:01; Status DC Perflutren Protein Type A Microsphe (Optison) 0.66 mg 1X ONCE IV ; Start 04/12/19 at 10:00; Stop 04/12/19 at 10:01; Status DC Furosemide (Lasix) 40 mg 1X ONCE IVP Last administered on 04/12/19at 11:44; Start 04/12/19 at 10:45; Stop 04/12/19 at 10:49; Status DC Atenolol (Tenormin) 50 mg BID PO Last administered on 04/18/19at 09:51; Start 04/13/19 at 14:00 Morphine Sulfate (Morphine Sulfate) 1 mg PRN Q10MIN PRN IV SEVERE PAIN 7-10; Start 04/14/19 at 07:00; Stop 04/15/19 at 06:59; Status DC Ringer's Solution 1,000 ml @ 30 mls/hr Q24H IV ; Start 04/14/19 at 07:00; Stop 04/14/19 at 18:59; Status DC Hydromorphone HCl (Dilaudid) 0.5 mg PRN Q10MIN PRN IV SEV PAIN, Second choice; Start 04/14/19 at 07:00; Stop 04/15/19 at 06:59; Status DC Prochlorperazine Edisylate (Compazine) 5 mg PACU PRN PRN IV NAUSEA, MRX1; Start 04/14/19 at 07:00; Stop 04/15/19 at 06:59; Status DC Furosemide (Lasix) 40 mg 1X ONCE IVP Last administered on 04/13/19at 17:35; Start 04/13/19 at 17:00; Stop 04/13/19 at 17:01; Status DC Furosemide (Lasix) 40 mg DAILY PO Last administered on 04/18/19at 09:51; Start 04/14/19 at 09:00 Atorvastatin Calcium (Lipitor) 20 mg QHS PO Last administered on 04/17/19at 21:0 1; Start 04/13/19 at 21:00 Insulin Human Lispro (HumaLOG) 3 units 1X ONCE SQ Last administered on 04/13/19at 20:44; Start 04/13/19 at 21:00; Stop 04/13/19 at 21:01; Status DC Propofol 20 ml @ As Directed STK-MED ONCE IV ; Start 04/14/19 at 07:35; Stop at 07:36; Status DC Dexamethasone Sodium Phosphate (Decadron) 4 mg STK-MED ONCE .ROUTE ; Start 04/14/19 at 07:35; Stop 04/14/19 at 07:36; Status DC Lidocaine HCl (Lidocaine Pf 2% Vial) 5 ml STK-MED ONCE .ROUTE ; Start 04/14/19 at 07:35; Stop 04/14/19 at 07:36; Status DC Ondansetron HCl (Zofran) 4 mg STK-MED ONCE .ROUTE ; Start 04/14/19 at 07:35; Stop 04/14/19 at 07:36; Status DC Sevoflurane (Ultane) 60 ml STK-MED ONCE IH ; Start 04/14/19 at 07:36; Stop 04/14/19 at 07:36; Status DC Sevoflurane (Ultane) 15 ml STK-MED ONCE IH ; Start 04/14/19 at 09:22; Stop 04/14/19 at 09:23; Status DC Morphine Sulfate (Morphine Sulfate) 1 mg PRN Q10MIN PRN IV SEVERE PAIN 7-10; Start 04/14/19 at 09:45; Stop 04/14/19 at 20:00; Status DC Ringer's Solution 1,000 ml @ 30 mls/hr Q24H IV ; Start 04/14/19 at 09:32; Stop 04/14/19 at 21:31; Status DC Hydromorphone HCl (Dilaudid) 0.5 mg PRN Q10MIN PRN IV SEV PAIN, Second choice Last administered on 04/14/19at 10:06; Start 04/14/19 at 09:45; Stop 04/14/19 at 20:00; Status DC Prochlorperazine Edisylate (Compazine) 5 mg PACU PRN PRN IV NAUSEA, MRX1; Start 04/14/19 at 09:45; Stop 04/14/19 at 20:00; Status DC Fentanyl Citrate (Fentanyl 2ml Vial) 100 mcg STK-MED ONCE .ROUTE ; Start 04/14/19 at 09:33; Stop 04/14/19 at 09:33; Status DC Albuterol Sulfate (Ventolin Neb Soln) 2.5 mg RTQID NEB Last administered on 04/18/19at 07:20; Start 04/14/19 at 15:45 Morphine Sulfate (Morphine Sulfate) 1 mg PRN Q10MIN PRN IV SEVERE PAIN 7-10; Start 04/17/19 at 07:00; Stop 04/18/19 at 06:59; Status DC Ringer's Solution 1,000 ml @ 30 mls/hr Q24H IV ; Start 04/17/19 at 07:00; Stop 04/17/19 at 18:59; Status DC Lidocaine HCl (Xylocaine-Mpf 1% 2ml Vial) 2 ml PRN 1X PRN ID PRIOR TO IV START; Start 04/17/19 at 07:00; Stop 04/18/19 at 06:59; Status DC Hydromorphone HCl (Dilaudid) 0.5 mg PRN Q10MIN PRN IV SEV PAIN, Second choice; Start 04/17/19 at 07:00; Stop 04/18/19 at 06:59; Status DC Prochlorperazine Edisylate (Compazine) 5 mg PACU PRN PRN IV NAUSEA, MRX1; Start 04/17/19 at 07:00; Stop 04/18/19 at 06:59; Status DC Bupivacaine HCl/ Epinephrine Bitart (Sensorcaine-Epi 0.25%-1:450995 Mpf) 30 ml 1X ONCE INJ ; Start 04/17/19 at 06:00; Stop 04/17/19 at 06:01; Status DC Gadoterate Meglumine (Dotarem) 29.8 ml 1X ONCE IVP Last administered on 04/17at 15:15; Start 04/17/19 at 15:00; Stop 04/17/19 at 15:06; Status DC Active Scripts Active Reported Atenolol 50 Mg Tablet 1 Tab PO BID Vitals/I & O Vital Sign - Last 24 Hours 04/17/19 04/17/19 04/17/19 04/17/19 12:40 14:12 15:00 17:12 Temp 98.0 98.0 Pulse 52 Resp 18 B/P (MAP) 159/66 (97) Pulse Ox 3 94 O2 Delivery Nasal Cannula Room Air Nasal Cannula Nasal Cannula O2 Flow Rate 3.0 3.0 04/17/19 04/17/19 04/17/19 04/17/19 19:20 19:53 20:30 20:55 Temp 98.2 98.2 Pulse 62 Resp 16 B/P (MAP) 148/64 (92) Pulse Ox 92 O2 Delivery Nasal Cannula Nasal Cannula Nasal Cannula O2 Flow Rate 3.0 3.0 3.0 3.0 04/17/19 04/17/19 04/17/19 04/17/19 21:09 23:01 23:01 23:09 Temp 98.1 98.1 Pulse 62 59 Resp 16 B/P (MAP) 148/64 163/63 (96) Pulse Ox 95 O2 Delivery Nasal Cannula Nasal Cannula Nasal Cannula O2 Flow Rate 3.0 3.0 3.0 04/18/19 04/18/19 04/18/19 04/18/19 02:38 03:30 05:17 07:00 Temp 98.1 98.3 98.1 98.3 Pulse 52 50 Resp 20 16 B/P (MAP) 159/70 (99) 143/64 (90) Pulse Ox 98 96 O2 Delivery Nasal Cannula Nasal Cannula Nasal Cannula Room Air O2 Flow Rate 3.0 3.0 3.0 3.0 04/18/19 04/18/19 04/18/19 07:22 09:51 10:12 Pulse 50 B/P (MAP) 143/64 Pulse Ox 96 O2 Delivery BiPAP/CPAP Nasal Cannula O2 Flow Rate 3.0 Intake and Output 04/17/19 04/17/19 04/18/19 15:00 23:00 07:00 Output Total 2300 ml Balance -2300 ml TAYLOR CORDOVA MD Apr 18, 2019 11:34
--- NOTE | 2019-04-18 11:38 | NUR ---
SS following up with discharge planning. HCFS following for self pay status. Pt was scheduled for amputation of toe yesterday and the surgery was cancelled. MRI was ordered yesterday and X Rays were ordered today. SS awaiting further reports from surgery. Pt will need IV abx at discharge and would prefer to go to [facility] due to proximity from home. Pt is currently on 3L NC of oxygen. Pt did not have oxygen at home. SS will continue to follow for discharge planning.
[2019-04-18] MEDS: FLUCONAZOLE 200MG/100ML PREMIX 100 ML IV SCH (12:09)
--- NOTE | 2019-04-18 13:02 | RAD ---
EXAM: Chest, single view. HISTORY: Congestive heart failure. COMPARISON: 04/13/2019. FINDINGS: A frontal view of the chest is obtained. There has been no significant change in pulmonary congestion. No pleural effusion or pneumothorax is seen. There is a stable prominent cardiac silhouette. There is a right PICC with the tip in the superior vena cava. IMPRESSION: Stable suspected pulmonary congestion. Electronically signed by: Kiersten Hernandez MD (04/18/2019 12:59 PM) [place] [id number]
[2019-04-18 15:00] VITALS: BP 107/42
--- NOTE | 2019-04-18 15:24 | NUR ---
Wound care: Patient seen per follow up wound care for wound vac dressing change to the left foot. Dressing removed and wound cleansed and assessed. Patient has a bright reddened area inferior to the wound from the plantar side. This area is fluctuant and draining pus. This area is concerning at this time as it was not there or that red on Tuesday. Wound care will hold vac at this time. Wound repacked with Aquacel Ag, ABD pad and tape. Will notify RN and Dr. Sandoval of these new findings. This area may need to be reopened again surgically. Patient up in chair at this time. Call light in reach. Will follow patient regarding wound care.
[2019-04-18 19:00] VITALS: BP 112/49
[2019-04-18] MEDS: GABAPENTIN 400 MG CAPSULE. PO SCH (21:00)
[2019-04-18] MEDS: ATORVASTATIN CALCIUM 20 MG TABLET PO SCH (21:12)
[2019-04-18] MEDS: ASPIRIN ENTERIC COATED 325 MG TABLET.DR. PO SCH (21:12)
[2019-04-18 23:00] VITALS: BP 153/65
[2019-04-19 03:00] VITALS: BP 145/61
[2019-04-19] MEDS: HYDROcodone/APAP 5/325MG 1 TAB TABLET PO PRN ×5 (03:33→22:15)
[2019-04-19] MEDS: MEROPENEM 1 GM in IV NORMAL SALINE 100ML 100 ML IV SCH ×3 (05:56→22:03)
[2019-04-19 07:00] VITALS: BP 139/55
[2019-04-19] MEDS: INSULIN LISPRO 300 UNITS/3 ML VIAL. SQ SCH ×6 (08:00→17:41)
[2019-04-19] MEDS: ALBUTEROL SULFATE 2.5 MG/3 ML NEBU. NEB SCH ×4 (08:00→19:50)
[2019-04-19] MEDS: LACTOBACILLUS RHAMNOSUS GG 1 CAPSULE. PO SCH ×2 (08:30→22:04)
[2019-04-19] MEDS: ATENOLOL 50 MG TABLET. PO SCH ×2 (08:30→22:04)
[2019-04-19] MEDS: FUROSEMIDE 40 MG TABLET. PO SCH (08:31)
[2019-04-19] MEDS: INSULIN GLARGINE SYRINGE. SQ SCH ×2 (09:05→22:13)
[2019-04-19 11:00] VITALS: BP 128/48
--- NOTE | 2019-04-19 12:10 | PDOC ---
PROGRESS NOTES Chief Complaint Chief Complaint 1. LEft THIRD TOE Gangrene -s/p amputation 04/10 (POD # ) 2. RT heel ulcer - wound care 3. NOnosteo 3rd toe digit s/p clean ray amputation 4. DM with hgba1c 9.7 and neuropathy and target organ damage - hx osteo, partial amputation big toe 5. Obesity, morbid BMI 53 6. HTN - controlled 7,. Lymphedema 8. POst op confusion, transient 9, POst op mild hyperkalemia 5.5 10. Post op ALISIA, VMN 11. diastolic CHF echo 55% 12. Left rotator cuff calcific tendinopathy. 13. severe protein-caloric malnutrition 14 PULMONARY HYPERTENSION PA pressure 50 15. Right plantar wound s/p debridement devitalized dermis, 04/14 History of Present Illness History of Present Illness NO new issues, IV INvanz over at [facility] as OP, qdaily to start 2 weeks first - dw Dr Finnegan and SW Asleep I did not awaken CXR interval, stable CHF EARLIER ENTRY: SHe has some care issues bec she cant make it to the potty bedside bec of her weight SHe requests kim, but i said no - try bed shafer Ortho note mentions possible second wound closure She has a left foot wound vac -- IV mERREM and is SELF PAY SHE HAD A GANGRENOUS 3rd toe that needed amputation no doubt INterval scan shows no OM She developed congestion hospital stay # 1 - got lasix IV and now on PO Echo normal, EF i provided copy BS better Long discussion with her about losing weight, HELPING Herself turn q2 and HELPING herself do the bed pain herself PLAN: IV merrem, keep current insulin regimen IV invanz as OP x 2 weeks at [facility] [place] COnt PO lasix Vitals Vitals Vital Signs Date Time Temp Pulse Resp B/P (MAP) Pulse Ox O2 Delivery O2 Flow Rate FiO2 04/19/19 11:04 93 Nasal Cannula 3.0 04/19/19 11:00 97.8 51 16 128/48 (74) 97.8 Physical Exam Physical Exam GENNERAL: Propped up in bed, alert, NAD HEENT: Oral cavity, pharynx is clear. NECK: Supple LUNGS: Clear to auscultation bilaterally HEART: S1, S2. ABDOMEN: Morbidly obese, soft, nontender EXTREMITIES: Foot wounds bilaterally, dressings in place. left 3 rd toe amp site with some necrotic tissueDRESSINGS DRY, CLEAN SKIN: warm to touch NEUROLOGIC: Nonfocal. RUE- PICC clean General: Alert, Oriented X3, Cooperative, No acute distress Heart: Regular rate, Normal S1, Normal S2, No murmurs Lungs: Clear Abdomen: Normal bowel sounds, Soft, No tenderness Extremities: No clubbing, No cyanosis, Other (left leg dressing, rt leg dressing, amputated toe wound vac PLANTAR ASPECT SWOLLEN) Skin: Other (left foot wound with wound vac and right foot wound) Labs LABS Laboratory Tests Test 04/18/19 15:45 04/18/19 20:38 04/19/19 07:51 04/19/19 11:06 Glucose (Fingerstick) 131 mg/dL (70-99) 120 mg/dL (70-99) 95 mg/dL (70-99) 90 mg/dL (70-99) Review of Systems Review of Systems asleep i did not awaken Comment Review of Relevant I have reviewed the following items adrienne (where applicable) has been applied. Labs Laboratory Tests Test 04/17/19 17:02 04/17/19 21:20 04/18/19 05:05 04/18/19 07:42 Glucose (Fingerstick) 120 mg/dL (70-99) 214 mg/dL (70-99) 123 mg/dL (70-99) White Blood Count 8.4 x10^3/uL (4.0-11.0) Red Blood Count 4.18 x10^6/uL (3.50-5.40) Hemoglobin 12.0 g/dL (12.0-15.5) Hematocrit 36.6 % (36.0-47.0) Mean Corpuscular Volume 88 fL (79-100) Mean Corpuscular Hemoglobin 29 pg (25-35) Mean Corpuscular Hemoglobin Concent 33 g/dL (31-37) Red Cell Distribution Width 17.0 % (11.5-14.5) Platelet Count 319 x10^3/uL (140-400) Neutrophils (%) (Auto) 69 % (31-73) Lymphocytes (%) (Auto) 20 % (24-48) Monocytes (%) (Auto) 7 % (0-9) Eosinophils (%) (Auto) 5 % (0-3) Basophils (%) (Auto) 1 % (0-3) Neutrophils # (Auto) 5.8 x10^3/uL (1.8-7.7) Lymphocytes # (Auto) 1.7 x10^3/uL (1.0-4.8) Monocytes # (Auto) 0.6 x10^3/uL (0.0-1.1) Eosinophils # (Auto) 0.4 x10^3/uL (0.0-0.7) Basophils # (Auto) 0.1 x10^3/uL (0.0-0.2) Sodium Level 140 mmol/L (136-145) Potassium Level 4.6 mmol/L (3.5-5.1) Chloride Level 99 mmol/L (98-107) Carbon Dioxide Level 44 mmol/L (21-32) Anion Gap (6-14) Blood Urea Nitrogen 18 mg/dL (7-20) Creatinine 0.6 mg/dL (0.6-1.0) Estimated GFR (Cockcroft-Gault) 102.7 BUN/Creatinine Ratio 30 (6-20) Glucose Level 130 mg/dL (70-99) Calcium Level 9.4 mg/dL (8.5-10.1) Total Bilirubin 0.4 mg/dL (0.2-1.0) Aspartate Amino Transf (AST/SGOT) 8 U/L (15-37) Alanine Aminotransferase (ALT/SGPT) 18 U/L (14-59) Alkaline Phosphatase 117 U/L (46-116) Total Protein 6.5 g/dL (6.4-8.2) Albumin 2.2 g/dL (3.4-5.0) Albumin/Globulin Ratio 0.5 (1.0-1.7) Test 04/18/19 11:22 04/18/19 15:45 04/18/19 20:38 04/19/19 07:51 Glucose (Fingerstick) 143 mg/dL (70-99) 131 mg/dL (70-99) 120 mg/dL (70-99) 95 mg/dL (70-99) Test 04/19/19 11:06 Glucose (Fingerstick) 90 mg/dL (70-99) Laboratory Tests Test 04/18/19 15:45 04/18/19 20:38 04/19/19 07:51 04/19/19 11:06 Glucose (Fingerstick) 131 mg/dL (70-99) 120 mg/dL (70-99) 95 mg/dL (70-99) 90 mg/dL (70-99) Microbiology 04/14/19 Anaerobic/Aerobic Culture, Resulted Pending 04/14/19 Anaerobic Culture Result 1 (DEANNE), Resulted Pending 04/14/19 Aerobic Culture - Final, Resulted 04/14/19 Aerobic Culture Result 1 (DEANNE) - Final, Resulted 04/14/19 Gram Stain - Final, Resulted 04/14/19 Gram Stain Result 1 (DEANNE) - Final, Resulted 04/14/19 Gram Stain Result 2 (DEANNE) - Final, Resulted 04/10/19 Blood Culture - Final, Complete NO GROWTH AFTER 5 DAYS Medications Current Medications Vancomycin HCl (Vanco Per Pharmacy) 1 each PRN DAILY PRN MC SEE COMMENTS Last administered on 04/10/19at 03:41; Start 04/09/19 at 22:30; Stop 04/10/19 at 12:36; Status DC Piperacillin Sod/ Tazobactam Sod (Zosyn Per Pharmacy) 1 each PRN DAILY PRN MC SEE COMMENTS; Start 04/09/19 at 22:30; Stop 04/10/19 at 12:35; Status DC Sodium Chloride 1,000 ml @ 100 mls/hr Q10H IV Last administered on 04/11/19at 05:23; Start 04/09/19 at 23:00; Stop 04/11/19 at 09:26; Status DC Acetaminophen/ Hydrocodone Bitart (Lortab 5/325) 1 tab PRN Q4HRS PRN PO MODERATE PAIN 4-6 Last administered on 04/17/19at 23:01; Start 04/09/19 at 22:30 Acetaminophen/ Hydrocodone Bitart (Lortab 5/325) 2 tab PRN Q4HRS PRN PO SEVERE PAIN 7-10 Last administered on 04/19/19at 08:29; Start 04/09/19 at 22:30 Insulin Glargine (Lantus Syringe) 70 unit QHS SQ Last administered on 04/18/19at 21:14; Start 04/09/19 at 23:00 Insulin Human Lispro (HumaLOG) 20 units 1X ONCE SQ Last administered on 04/09/19at 23:02; Start 04/09/19 at 23:00; Stop 04/09/19 at 23:01; Status DC Insulin Human Lispro (HumaLOG) 0-7 UNITS TIDWMEALS SQ ; Start 04/10/19 at 08:00; Stop 04/10/19 at 08:08; Status DC Dextrose (Dextrose 50%-Water Syringe) 12.5 gm PRN Q15MIN PRN IV SEE COMMENTS; Start 04/09/19 at 22:30; Status Cancel Dextrose 250 ml PRN Q15MIN PRN IV SEE COMMENTS; Start 04/09/19 at 22:30; Status Cancel Insulin Human Lispro (HumaLOG) 26 units TIDAC SQ Last administered on 04/19/19at 08:35; Start 04/10/19 at 07:30 Piperacillin Sod/ Tazobactam Sod 3.375 gm/Sodium Chloride 50 ml @ 100 mls/hr Q6HRS IV Last administered on 04/10/19at 11:35; Start 04/10/19 at 00:00; Stop 04/10/19 at 12:35; Status DC Gabapentin (Neurontin) 900 mg BID92 PO Last administered on 04/18/19at 21:12; Start 04/10/19 at 09:00 Gabapentin (Neurontin) 1,200 mg HS PO Last administered on 04/18/19at 21:00; Start 04/10/19 at 21:00 Atenolol (Tenormin) 40 mg DAILY PO ; Start 04/10/19 at 09:00; Status UNV Vancomycin HCl 2 gm/Sodium Chloride 500 ml @ 250 mls/hr Q12H IV Last ad ministered on 04/10/19at 05:20; Start 04/10/19 at 05:00; Stop 04/10/19 at 12:36; Status DC Vancomycin HCl (Vancomycin Trough Level) 1 each 1X ONCE MC ; Start 04/11/19 at 04:30; Stop 04/11/19 at 04:31; Status Cancel Insulin Human Lispro (HumaLOG) 0-9 UNITS TIDWMEALS SQ Last administered on 04/15/19at 12:03; Start 04/10/19 at 12:00 Dextrose (Dextrose 50%-Water Syringe) 12.5 gm PRN Q15MIN PRN IV SEE COMMENTS; Start 04/10/19 at 08:15 Dextrose 250 ml PRN Q15MIN PRN IV SEE COMMENTS; Start 04/10/19 at 08:15 Acetaminophen (Tylenol) 500 mg PRN Q6HRS PRN PO MILD PAIN / TEMP Last administered on 04/12/19at 13:04; Start 04/10/19 at 08:15 Ondansetron HCl (Zofran) 4 mg PRN Q6HRS PRN IV NAUSEA/VOMITING Last administered on 04/13/19at 12:24; Start 04/10/19 at 08:15 Fentanyl Citrate (Fentanyl 2ml Vial) 50 mcg PRN Q2HR PRN IV PAIN Last administered on 04/18/19at 15:34; Start 04/10/19 at 08:15 Sodium Chloride ([place] Saline Nasal) 1 nadeem PRN Q2HRS PRN NS NASAL CONGESTION Last administered on 04/10/19at 15:54; Start 04/10/19 at 11:45 Fluconazole/ Sodium Chloride 100 ml @ 100 mls/hr Q24H IV Last administered on 04/18/19at 12:09; Start 04/10/19 at 13:00 Meropenem 1 gm/ Sodium Chloride 100 ml @ 200 mls/hr Q8HRS IV Last administered on 04/19/19at 05:56; Start 04/10/19 at 14:00 Daptomycin 900 mg/ Sodium Chloride 50 ml @ 100 mls/hr Q24H IV Last administered on 04/16/19at 12:24; Start 04/10/19 at 13:00; Stop 04/17/19 at 10:05; Status DC Fentanyl Citrate (Fentanyl 2ml Vial) 25 mcg PRN Q5MIN PRN IV MILD PAIN 1-3; Start 04/10/19 at 13:15; Stop 04/11/19 at 11:49; Status DC Fentanyl Citrate (Fentanyl 2ml Vial) 50 mcg PRN Q5MIN PRN IV MODERATE TO SEVERE PAIN; Start 04/10/19 at 13:15; Stop 04/11/19 at 11:49; Status DC Morphine Sulfate (Morphine Sulfate) 1 mg PRN Q10MIN PRN IV SEVERE PAIN 7-10; Start 04/10/19 at 13:15; Stop 04/11/19 at 11:50; Status DC Ringer's Solution 1,000 ml @ 30 mls/hr Q24H IV ; Start 04/10/19 at 13:14; Stop 04/11/19 at 01:13; Status DC Hydromorphone HCl (Dilaudid) 0.5 mg PRN Q10MIN PRN IV SEV PAIN, Second choice; Start 04/10/19 at 13:15; Stop 04/11/19 at 11:50; Status DC Prochlorperazine Edisylate (Compazine) 5 mg PACU PRN PRN IV NAUSEA, MRX1; Start 04/10/19 at 13:15; Stop 04/11/19 at 11:50; Status DC Fentanyl Citrate (Fentanyl 2ml Vial) 100 mcg STK-MED ONCE .ROUTE ; Start 04/10/19 at 13:20; Stop 04/10/19 at 13:21; Status DC Sevoflurane (Ultane) 30 ml STK-MED ONCE IH ; Start 04/10/19 at 13:20; Stop 04/10/19 at 13:21; Status DC Propofol 20 ml @ As Directed STK-MED ONCE IV ; Start 04/10/19 at 13:20; Stop 04/10/19 at 13:21; Status DC Dexamethasone Sodium Phosphate (Decadron) 4 mg STK-MED ONCE .ROUTE ; Start 04/10/19 at 13:21; Stop 04/10/19 at 13:21; Status DC Lidocaine HCl (Lidocaine Pf 2% Vial) 5 ml STK-MED ONCE .ROUTE ; Start 04/10/19 at 13:21; Stop 04/10/19 at 13:21; Status DC Ondansetron HCl (Zofran) 4 mg STK-MED ONCE .ROUTE ; Start 04/10/19 at 13:21; Stop 04/10/19 at 13:21; Status DC Phenylephrine HCl (PHENYLEPHRINE in 0.9% NACL PF) 1 mg STK-MED ONCE IV ; Start 04/10/19 at 14:27; Stop 04/10/19 at 14:27; Status DC Aspirin (Ecotrin) 325 mg QHS PO Last administered on 04/18/19at 21:12; Start 04/10/19 at 21:00 Oxycodone/ Acetaminophen (Percocet 5/325) 1 tab PRN Q4HRS PRN PO MODERATE PAIN, LAST OPTION Last administered on 04/14/19at 15:41; Start 04/10/19 at 15:15; Stop 04/15/19 at 16:17; Status DC Oxycodone/ Acetaminophen (Percocet 5/325) 2 tab PRN Q4HRS PRN PO SEVERE PAIN, LAST OPTION Last administered on 04/14/19at 20:33; Start 04/10/19 at 15:30; Stop 04/15/19 at 16:17; Status DC Insulin Glargine (Lantus Syringe) 30 unit DAILY SQ Last administered on 04/19/19at 09:05; Start 04/11/19 at 09:00 Sodium Polystyrene Sulfonate (Kayexalate) 15 gm 1X ONCE PO Last administered on 04/11/19at 10:24; Start 04/11/19 at 09:00; Stop 04/11/19 at 09:01; Status DC Meclizine HCl (Antivert) 12.5 mg PRN Q6HRS PRN PO DIZZINESS Last administered on 04/11/19at 10:24; Start 04/11/19 at 09:30 Albuterol Sulfate (Ventolin Neb Soln) 2.5 mg PRN Q4HRS PRN NEB SHORTNESS OF BREATH Last administered on 04/14/19at 15:30; Start 04/11/19 at 10:45; Stop 04/14/19 at 15:46; Status DC Albuterol Sulfate (Ventolin Neb Soln) 2.5 mg 1X ONCE NEB Last administered on 04/11/19at 11:54; Start 04/11/19 at 11:00; Stop 04/11/19 at 11:01; Status DC Lactobacillus Rhamnosus (Culturelle) 1 cap BID PO Last administered on 04/19/19at 08:30; Start 04/11/19 at 12:00 Furosemide (Lasix) 40 mg 1X ONCE IVP Last administered on 04/11/19 20:18; Start 04/11/19 at 19:00; Stop 04/11/19 at 19:01; Status DC Perflutren Protein Type A Microsphe (Optison) 0.66 mg 1X ONCE IV ; Start 04/12/19 at 10:00; Stop 04/12/19 at 10:01; Status DC Furosemide (Lasix) 40 mg 1X ONCE IVP Last administered on 04/12/19at 11:44; Start 04/12/19 at 10:45; Stop 04/12/19 at 10:49; Status DC Atenolol (Tenormin) 50 mg BID PO Last administered on 04/19/19at 08:30; Start 04/13/19 at 14:00 Morphine Sulfate (Morphine Sulfate) 1 mg PRN Q10MIN PRN IV SEVERE PAIN 7-10; Start 04/14/19 at 07:00; Stop 04/15/19 at 06:59; Status DC Ringer's Solution 1,000 ml @ 30 mls/hr Q24H IV ; Start 04/14/19 at 07:00; Stop 04/14/19 at 18:59; Status DC Hydromorphone HCl (Dilaudid) 0.5 mg PRN Q10MIN PRN IV SEV PAIN, Second choice; Start 04/14/19 at 07:00; Stop 04/15/19 at 06:59; Status DC Prochlorperazine Edisylate (Compazine) 5 mg PACU PRN PRN IV NAUSEA, MRX1; Start 04/14/19 at 07:00; Stop 04/15/19 at 06:59; Status DC Furosemide (Lasix) 40 mg 1X ONCE IVP Last administered on 04/13/19at 17:35; Start 04/13/19 at 17:00; Stop 04/13/19 at 17:01; Status DC Furosemide (Lasix) 40 mg DAILY PO Last administered on 04/19/19at 08:31; Start 04/14/19 at 09:00 Atorvastatin Calcium (Lipitor) 20 mg QHS PO Last administered on 04/18/19at 21:12; Start 04/13/19 at 21:00 Insulin Human Lispro (HumaLOG) 3 units 1X ONCE SQ Last administered on 04/13/19at 20:44; Start 04/13/19 at 21:00; Stop 04/13/19 at 21:01; Status DC Propofol 20 ml @ As Directed STK-MED ONCE IV ; Start 04/14/19 at 07:35; Stop 04/14/19 at 07:36; Status DC Dexamethasone Sodium Phosphate (Decadron) 4 mg STK-MED ONCE .ROUTE ; Start 04/14/19 at 07:35; Stop 04/14/19 at 07:36; Status DC Lidocaine HCl (Lidocaine Pf 2% Vial) 5 ml STK-MED ONCE .ROUTE ; Start 04/14/19 at 07:35; Stop 04/14/19 at 07:36; Status DC Ondansetron HCl (Zofran) 4 mg STK-MED ONCE .ROUTE ; Start 04/14/19 at 07:35; Stop 04/14/19 at 07:36; Status DC Sevoflurane (Ultane) 60 ml STK-MED ONCE IH ; Start 04/14/19 at 07:36; Stop 04/14/19 at 07:36; Status DC Sevoflurane (Ultane) 15 ml STK-MED ONCE IH ; Start 04/14/19 at 09:22; Stop 04/14/19 at 09:23; Status DC Morphine Sulfate (Morphine Sulfate) 1 mg PRN Q10MIN PRN IV SEVERE PAIN 7-10; Start 04/14/19 at 09:45; Stop 04/14/19 at 20:00; Status DC Ringer's Solution 1,000 ml @ 30 mls/hr Q24H IV ; Start 04/14/19 at 09:32; Stop 04/14/19 at 21:31; Status DC Hydromorphone HCl (Dilaudid) 0.5 mg PRN Q10MIN PRN IV SEV PAIN, Second choice Last administered on 04/14/19at 10:06; Start 04/14/19 at 09:45; Stop 04/14/19 at 20:00; Status DC Prochlorperazine Edisylate (Compazine) 5 mg PACU PRN PRN IV NAUSEA, MRX1; Start 04/14/19 at 09:45; Stop 04/14/19 at 20:00; Status DC Fentanyl Citrate (Fentanyl 2ml Vial) 100 mcg STK-MED ONCE .ROUTE ; Start 04/14/19 at 09:33; Stop 04/14/19 at 09:33; Status DC Albuterol Sulfate (Ventolin Neb Soln) 2.5 mg RTQID NEB Last administered on 04/18/19at 07:20; Start 04/14/19 at 15:45 Morphine Sulfate (Morphine Sulfate) 1 mg PRN Q10MIN PRN IV SEVERE PAIN 7-10; Start 04/17/19 at 07:00; Stop 04/18/19 at 06:59; Status DC Ringer's Solution 1,000 ml @ 30 mls/hr Q24H IV ; Start 04/17/19 at 07:00; Stop 04/17/19 at 18:59; Status DC Lidocaine HCl (Xylocaine-Mpf 1% 2ml Vial) 2 ml PRN 1X PRN ID PRIOR TO IV START; Start 04/17/19 at 07:00; Stop 04/18/19 at 06:59; Status DC Hydromorphone HCl (Dilaudid) 0.5 mg PRN Q10MIN PRN IV SEV PAIN, Second choice; Start 04/17/19 at 07:00; Stop 04/18/19 at 06:59; Status DC Prochlorperazine Edisylate (Compazine) 5 mg PACU PRN PRN IV NAUSEA, MRX1; Start 04/17/19 at 07:00; Stop 04/18/19 at 06:59; Status DC Bupivacaine HCl/ Epinephrine Bitart (Sensorcaine-Epi 0.25%-1:420295 Mpf) 30 ml 1X ONCE INJ ; Start 04/17/19 at 06:00; Stop 04/17/19 at 06:01; Status DC Gadoterate Meglumine (Dotarem) 29.8 ml 1X ONCE IVP Last administered on 04/17/19at 15:15; Start 04/17/19 at 15:00; Stop 04/17/19 at 15:06; Status DC Active Scripts Active Reported Atenolol 50 Mg Tablet 1 Tab PO BID Vitals/I & O Vital Sign - Last 24 Hours 04/18/19 04/18/19 04/18/19 04/18/19 14:58 15:00 15:34 15:58 Temp 98.4 98.4 Pulse 57 Resp 20 24 B/P (MAP) 107/42 (63) Pulse Ox 92 O2 Delivery Room Air Nasal Cannula Room Air Room Air O2 Flow Rate 3.0 3.0 04/18/19 04/18/19 04/18/19 04/18/19 16:04 19:00 20:00 21:12 Temp 97.9 97.9 Pulse 57 Resp 18 B/P (MAP) 112/49 (70) Pulse Ox 95 95 O2 Delivery Room Air Room Air Room Air Room Air O2 Flow Rate 3.0 3.0 3.0 04/18/19 04/18/19 04/18/19 04/19/19 21:13 22:12 23:00 03:00 Temp 98.3 98.3 98.3 98.3 Pulse 57 63 52 Resp 18 18 B/P (MAP) 112/49 153/65 (94) 145/61 (89) Pulse Ox 95 98 96 O2 Delivery Room Air Room Air Room Air O2 Flow Rate 3.0 3.0 3.0 04/19/19 04/19/19 04/19/19 04/19/19 03:33 04:33 07:00 08:00 Temp 98.0 98.0 Pulse 50 Resp 16 B/P (MAP) 139/55 (83) Pulse Ox 98 98 93 O2 Delivery Room Air Room Air Room Air Nasal Cannula O2 Flow Rate 3.0 3.0 3.0 04/19/19 04/19/19 04/19/19 04/19/19 08:29 08:30 11:00 11:04 Temp 97.8 97.8 Pulse 50 51 Resp 16 B/P (MAP) 139/55 128/48 (74) Pulse Ox 93 94 93 O2 Delivery Room Air Room Air Nasal Cannula O2 Flow Rate 3.0 3.0 Intake and Output 04/18/19 04/18/19 04/19/19 15:00 23:00 07:00 Output Total 1200 ml Balance -1200 ml TAYLOR CORDOVA MD Apr 19, 2019 12:10
[2019-04-19] MEDS: FLUCONAZOLE 200MG/100ML PREMIX 100 ML IV SCH (12:23)
--- NOTE | 2019-04-19 12:47 | PDOC ---
Provider Note Provider Note further review of MRI. Case discussed with adult remedial education instructor. Still has plantar fluid collection, possible ulcer. Will plan another I&D without closure for tomorrow. SUSANA AGUAYO MD Apr 19, 2019 12:47
[2019-04-19 15:00] VITALS: BP 136/59
[2019-04-19] MEDS: GABAPENTIN 300 MG CAPSULE. PO SCH (15:00)
--- NOTE | 2019-04-19 16:06 | NUR ---
Discharge Note: VANNA CARBAJAL [address] Discharge instructions and discharge home medications reviewed with Other facility and a copy given. All questions have been answered and understanding verbalized. The following instructions and handouts were given: Diet, activity, medication list and follow up instructions provided to [facility]. Report called by Ingris FELIZ. Discontinued lines and drains: Central Line TL intact. Patient discharged to [facility] with Ambulance Personnel via [facility]. Addendum: 04/19/19 at 1628 by MER GARZA RN WRONG PATIENT-KB
[2019-04-19 19:00] VITALS: BP 140/95
[2019-04-19] MEDS: GABAPENTIN 400 MG CAPSULE. PO SCH (22:04)
[2019-04-19] MEDS: ASPIRIN ENTERIC COATED 325 MG TABLET.DR. PO SCH (22:04)
[2019-04-19] MEDS: ATORVASTATIN CALCIUM 20 MG TABLET PO SCH (22:05)
[2019-04-19 23:09] VITALS: BP 150/56
[2019-04-20 03:00] VITALS: BP 130/55
[2019-04-20] MEDS: fentaNYL PF VIAL 100 MCG/2 ML VIAL IV PRN ×3 (04:26→22:16)
[2019-04-20] MEDS: MEROPENEM 1 GM in IV NORMAL SALINE 100ML 100 ML IV SCH ×3 (06:24→22:17)
[2019-04-20 07:00] VITALS: BP 136/69
[2019-04-20] MEDS ORDERED: LIDOCAINE 1% PF 2 ML VIAL. ID PRN (07:00)
[2019-04-20] MEDS ORDERED: HYDROmorphone 2 MG/ML VIAL IV PRN (07:00)
[2019-04-20] MEDS ORDERED: PROCHLORPERAZINE 10 MG/2 ML VIAL. IV PRN (07:00)
[2019-04-20] MEDS ORDERED: fentaNYL PF VIAL 100 MCG/2 ML VIAL IV PRN ×2 (07:00)
[2019-04-20] MEDS ORDERED: IV RINGERS,LACTATED 1000ML 1,000 ML IV SCH (07:00)
[2019-04-20] MEDS ORDERED: ONDANSETRON PF 4 MG/2 ML VIAL. IV PRN (07:00)
[2019-04-20] MEDS ORDERED: MORPHINE SULFATE 2 MG/ML VIAL. IV PRN (07:00)
[2019-04-20] MEDS: INSULIN LISPRO 300 UNITS/3 ML VIAL. SQ SCH ×6 (07:30→17:41)
[2019-04-20] MEDS: ALBUTEROL SULFATE 2.5 MG/3 ML NEBU. NEB SCH ×4 (07:41→20:00)
--- NOTE | 2019-04-20 08:44 | PDOC ---
Infectious Disease Note Subjective Subjective pt is feeling good waiting for surgery today ROS ROS no n/v/d/sob Vital Sign Vital Signs Vital Signs Date Time Temp Pulse Resp B/P (MAP) Pulse Ox O2 Delivery O2 Flow Rate FiO2 04/20/19 04:56 Nasal Cannula 3.0 04/20/19 03:00 98.3 54 130/55 (80) 98 98.3 04/19/19 15:00 18 Physical Exam PHYSICAL EXAM GENNERAL: Propped up in bed, alert, NAD HEENT: Oral cavity, pharynx is clear. NECK: Supple LUNGS: Clear to auscultation bilaterally HEART: S1, S2. ABDOMEN: Morbidly obese, soft, nontender EXTREMITIES: Foot wounds bilaterally, dressings in place. left 3 rd toe amp site with some necrotic tissueDRESSINGS DRY, CLEAN SKIN: warm to touch NEUROLOGIC: Nonfocal. RUE- PICC clean Labs Lab Laboratory Tests Test 04/19/19 11:06 04/19/19 16:53 04/19/19 20:06 04/19/19 22:19 Glucose (Fingerstick) 90 mg/dL (70-99) 103 mg/dL (70-99) 105 mg/dL (70-99) 116 mg/dL (70-99) Test 04/20/19 03:12 Glucose (Fingerstick) 134 mg/dL (70-99) Micro foot culture neg Objective Assessment L 3 rd toe osteomyelitis - infection - despite amoxicillin/Clinda Left third toe amputation metatarsal, with toe, single 04/10 ALISIA Cephalexin allegy -swelling and throat closing leukocytosis - now s/p steroids prior to surgery Yeast skin Dm Right plantar wou Plan Plan of Care meropenem and fluconazole ,,, Monitor for abx toxicities/side effects Probiotics Cultures neg so far Wound care as directed KATHLEEN SHERMAN MD Apr 20, 2019 08:44
[2019-04-20] MEDS: GABAPENTIN 300 MG CAPSULE. PO SCH ×2 (09:00→13:22)
[2019-04-20] MEDS: FUROSEMIDE 40 MG TABLET. PO SCH (09:00)
[2019-04-20] MEDS: LACTOBACILLUS RHAMNOSUS GG 1 CAPSULE. PO SCH ×2 (09:00→20:34)
[2019-04-20] MEDS: ATENOLOL 50 MG TABLET. PO SCH ×2 (09:22→20:34)
[2019-04-20] MEDS: INSULIN GLARGINE SYRINGE. SQ SCH ×2 (09:27→21:00)
[2019-04-20] MEDS ORDERED: SEVOFLURANE 16 TO 30 MINUTES. IH ONE (10:29)
[2019-04-20] MEDS ORDERED: fentaNYL PF VIAL 100 MCG/2 ML VIAL ONE ×3 (10:29→12:16)
[2019-04-20] MEDS ORDERED: LIDOCAINE 2% PF 5 ML VIAL. ONE ×2 (10:29→10:38)
[2019-04-20] MEDS ORDERED: PROPOFOL 0 ML IV ONE (10:29)
[2019-04-20] MEDS ORDERED: ONDANSETRON PF 4 MG/2 ML VIAL. ONE ×2 (10:30→10:38)
[2019-04-20] MEDS ORDERED: BUPIVACAINE-EPI 0.25%-1:200000 MPF 30 ML VIAL. INJ ONE (10:30)
[2019-04-20] MEDS ORDERED: PHENYLEPHRINE in 0.9% NACL PF 1 MG/10 ML SYRINGE. IV ONE (10:30)
[2019-04-20] MEDS ORDERED: DEXAMETHASONE SOD PHOS 4 MG/ML VIAL ONE ×2 (10:30→10:38)
[2019-04-20] MEDS ORDERED: SEVOFLURANE 61 TO 120 MINUTES. IH ONE (10:37)
[2019-04-20] MEDS ORDERED: PROPOFOL 20 ML IV ONE (10:38)
[2019-04-20] MEDS ORDERED: GLYCOPYRROLATE 1 MG/5 ML VIAL. ONE (11:10)
[2019-04-20] MEDS ORDERED: ePHEDrine PF IN SALINE 50 MG/10 ML SYRINGE. IV ONE (11:16)
--- NOTE | 2019-04-20 11:41 | PDOC4 ---
Operative Note Operative Note Date of Procedure: April 20, 2019 Pre-Op Diagnosis: Furuncle of left foot L02.622 Post-Op Diagnosis: Furuncle of left foot L02.622 Procedure: Incision and drainage below fascia with tendon sheath involvement, foot, single bursal space, left foot third toe flexor tendon sheath CPT 52395 Surgeon: Susana Sandoval MD Anesthesia: General EBL: 10 mL Specimens Obtained: Left foot plantar aspect cultures aerobic and anaerobic swab Complications: none Drains: none Findings:The MRI showed a fluid collection on the plantar aspect in the third toe flexor tendon sheath region and area of the flexor tendon. This was the retracted flexor tendon from the prior amputation, and there was an associated abscess. I incised the plantar aspect of the foot, incised the abscess, and excised much of the remaining flexor tendons of the third toe. Procedure in Detail: The patient was identified in the preoperative holding area. The correct left foot was marked by me. The patient was taken to the operating room where general anesthesia was used. The patient was positioned supine on the operating table. The patient remains on scheduled antibiotics. A timeout procedure was performed. The limb was prepared in sterile fashion with Betadine. Sterile drapes were applied. There is a fullness along the plantar aspect of the foot, with now some surrounding erythema and fluctuance, and this is consistent with the MRI findings of a plantar fluid collection. On my first review of the MRI I thought this would be irrigation fluid or other sterile fluid but on operative examination this appears to be a plantar abscess. I extended the previous third toe amputation incision along the plantar aspect proximally. An abscess cavity was identified on the plantar foot, and balled up in that abscess is the retracted flexor tendon from the prior amputation. I suspect that at the index amputation this tendon retracted when it was first cut, and brought bacteria with it when it retracted onto the plantar aspect of the foot in the flexor tendon sheath. I explored the flexor tendon sheath and excised the short and long flexor tendons of the third toe, I used copious irrigation in the flexor tendon sheath/bursal space where the abscess had been located. Betadine irrigation was used. Copious saline irrigation was used. Bovie electrocautery was used for hemostasis. Needle and sponge counts were correct. There were no apparent complications. I left the open foot wound for eventual later closure, and left the patient in the care of the wound care team for application of a wound VAC at this time. She was stable and there were no apparent complications. SUSANA SANDOVAL MD Apr 20, 2019 11:41
--- NOTE | 2019-04-20 12:33 | PDOC ---
PROGRESS NOTES Chief Complaint Chief Complaint 1. LEft THIRD TOE Gangrene -s/p amputation 04/10 (POD # ) 2. RT heel ulcer - wound care 3. NOnosteo 3rd toe digit s/p clean ray amputation 4. DM with hgba1c 9.7 and neuropathy and target organ damage - hx osteo, partial amputation big toe 5. Obesity, morbid BMI 53 6. HTN - controlled 7,. Lymphedema 8. POst op confusion, transient 9, POst op mild hyperkalemia 5.5 10. Post op ALISIA, VMN 11. diastolic CHF echo 55% 12. Left rotator cuff calcific tendinopathy. 13. severe protein-caloric malnutrition 14 PULMONARY HYPERTENSION PA pressure 50 15. Right plantar wound s/p debridement devitalized dermis, 04/14 History of Present Illness History of Present Illness NO new issues, IV INvanz over at [facility] as OP, qdaily to start 2 weeks first - dw Dr Finnegan and SW OUt having second I and D CXR interval, stable CHF BS better Long discussion with her about losing weight, HELPING Herself turn q2 and HELPING herself do the bed pain herself PLAN: IV merrem, keep current insulin regimen IV invanz as [facility] [place] COnt PO lasix POst op labs tmr Vitals Vitals Vital Signs Date Time Temp Pulse Resp B/P (MAP) Pulse Ox O2 Delivery O2 Flow Rate FiO2 04/20/19 12:21 56 16 102/51 Nasal Cannula 2 04/20/19 12:03 97.3 98 97.3 Physical Exam Physical Exam GENNERAL: Propped up in bed, alert, NAD HEENT: Oral cavity, pharynx is clear. NECK: Supple LUNGS: Clear to auscultation bilaterally HEART: S1, S2. ABDOMEN: Morbidly obese, soft, nontender EXTREMITIES: Foot wounds bilaterally, dressings in place. left 3 rd toe amp site with some necrotic tissueDRESSINGS DRY, CLEAN SKIN: warm to touch NEUROLOGIC: Nonfocal. RUE- PICC clean General: Alert, Oriented X3, Cooperative, No acute distress Heart: Regular rate, Normal S1, Normal S2, No murmurs Lungs: Clear Abdomen: Normal bowel sounds, Soft, No tenderness Extremities: No clubbing, No cyanosis, Other (left leg dressing, rt leg dressing, amputated toe wound vac PLANTAR ASPECT SWOLLEN) Skin: Other (left foot wound with wound vac and right foot wound) Labs LABS Laboratory Tests Test 04/19/19 16:53 04/19/19 20:06 04/19/19 22:19 04/20/19 03:12 Glucose (Fingerstick) 103 mg/dL (70-99) 105 mg/dL (70-99) 116 mg/dL (70-99) 134 mg/dL (70-99) Test 04/20/19 10:58 04/20/19 12:10 Glucose (Fingerstick) 99 mg/dL (70-99) 109 mg/dL (70-99) Review of Systems Review of Systems out having I and D Comment Review of Relevant I have reviewed the following items adrienne (where applicable) has been applied. Labs Laboratory Tests Test 04/18/19 15:45 04/18/19 20:38 04/19/19 07:51 04/19/19 11:06 Glucose (Fingerstick) 131 mg/dL (70-99) 120 mg/dL (70-99) 95 mg/dL (70-99) 90 mg/dL (70-99) Test 04/19/19 16:53 04/19/19 20:06 04/19/19 22:19 04/20/19 03:12 Glucose (Fingerstick) 103 mg/dL (70-99) 105 mg/dL (70-99) 116 mg/dL (70-99) 134 mg/dL (70-99) Test 04/20/19 10:58 04/20/19 12:10 Glucose (Fingerstick) 99 mg/dL (70-99) 109 mg/dL (70-99) Laboratory Tests Test 04/19/19 16:53 04/19/19 20:06 04/19/19 22:19 04/20/19 03:12 Glucose (Fingerstick) 103 mg/dL (70-99) 105 mg/dL (70-99) 116 mg/dL (70-99) 134 mg/dL (70-99) Test 04/20/19 10:58 04/20/19 12:10 Glucose (Fingerstick) 99 mg/dL (70-99) 109 mg/dL (70-99) Microbiology 04/14/19 Anaerobic/Aerobic Culture - Final, Complete 04/14/19 Anaerobic Culture Result 1 (DEANNE) - Final, Complete 04/14/19 Aerobic Culture - Final, Complete 04/14/19 Aerobic Culture Result 1 (DEANNE) - Final, Complete 04/14/19 Gram Stain - Final, Complete 04/14/19 Gram Stain Result 1 (DEANNE) - Final, Complete 04/14/19 Gram Stain Result 2 (DEANNE) - Final, Complete 04/10/19 Blood Culture - Final, Complete NO GROWTH AFTER 5 DAYS Medications Current Medications Vancomycin HCl (Vanco Per Pharmacy) 1 each PRN DAILY PRN MC SEE COMMENTS Last administered on 04/10/19at 03:41; Start 04/09/19 at 22:30; Stop 04/10/19 at 12:36; Status DC Piperacillin Sod/ Tazobactam Sod (Zosyn Per Pharmacy) 1 each PRN DAILY PRN MC SEE COMMENTS; Start 04/09/19 at 22:30; Stop 04/10/19 at 12:35; Status DC Sodium Chloride 1,000 ml @ 100 mls/hr Q10H IV Last administered on 04/11/19at 05:23; Start 04/09/19 at 23:00; Stop 04/11/19 at 09:26; Status DC Acetaminophen/ Hydrocodone Bitart (Lortab 5/325) 1 tab PRN Q4HRS PRN PO MODERATE PAIN 4-6 Last administered on 04/17/19at 23:01; Start 04/09/19 at 22:30 Acetaminophen/ Hydrocodone Bitart (Lortab 5/325) 2 tab PRN Q4HRS PRN PO SEVERE PAIN 7-10 Last administered on 04/19/19at 22:15; Start 04/09/19 at 22:30 Insulin Glargine (Lantus Syringe) 70 unit QHS SQ Last administered on 04/19/19at 22:13; Start 04/09/19 at 23:00 Insulin Human Lispro (HumaLOG) 20 units 1X ONCE SQ Last administered on 04/09/19at 23:02; Start 04/09/19 at 23:00; Stop 04/09/19 at 23:01; Status DC Insulin Human Lispro (HumaLOG) 0-7 UNITS TIDWMEALS SQ ; Start 04/10/19 at 08:00; Stop 04/10/19 at 08:08; Status DC Dextrose (Dextrose 50%-Water Syringe) 12.5 gm PRN Q15MIN PRN IV SEE COMMENTS; Start 04/09/19 at 22:30; Status Cancel Dextrose 250 ml PRN Q15MIN PRN IV SEE COMMENTS; Start 04/09/19 at 22:30; Status Cancel Insulin Human Lispro (HumaLOG) 26 units TIDAC SQ Last administered on 04/19/19at 17:41; Start 04/10/19 at 07:30 Piperacillin Sod/ Tazobactam Sod 3.375 gm/Sodium Chloride 50 ml @ 100 mls/hr Q6HRS IV Last administered on 04/10/19at 11:35; Start 04/10/19 at 00:00; Stop 04/10/19 at 12:35; Status DC Gabapentin (Neurontin) 900 mg BID92 PO Last administered on 04/19/19at 15:00; Start 04/10/19 at 09:00 Gabapentin (Neurontin) 1,200 mg HS PO Last administered on 04/19/19at 22:04; Start 04/10/19 at 21:00 Atenolol (Tenormin) 40 mg DAILY PO ; Start 04/10/19 at 09:00; Status UNV Vancomycin HCl 2 gm/Sodium Chloride 500 ml @ 250 mls/hr Q12H IV Last administered on 04/10/19at 05:20; Start 04/10/19 at 05:00; Stop 04/10/19 at 12:36; Status DC Vancomycin HCl (Vancomycin Trough Level) 1 each 1X ONCE MC ; Start 04/11/19 at 04:30; Stop 04/11/19 at 04:31; Status Cancel Insulin Human Lispro (HumaLOG) 0-9 UNITS TIDWMEALS SQ Last administered on 04/15/19at 12:03; Start 04/10/19 at 12:00 Dextrose (Dextrose 50%-Water Syringe) 12.5 gm PRN Q15MIN PRN IV SEE COMMENTS; Start 04/10/19 at 08:15 Dextrose 250 ml PRN Q15MIN PRN IV SEE COMMENTS; Start 04/10/19 at 08:15 Acetaminophen (Tylenol) 500 mg PRN Q6HRS PRN PO MILD PAIN / TEMP Last administered on 04/12/19at 13:04; Start 04/10/19 at 08:15 Ondansetron HCl (Zofran) 4 mg PRN Q6HRS PRN IV NAUSEA/VOMITING Last administered on 04/13/19at 12:24; Start 04/10/19 at 08:15 Fentanyl Citrate (Fentanyl 2ml Vial) 50 mcg PRN Q2HR PRN IV PAIN Last administered on 04/20/19at 04:26; Start 04/10/19 at 08:15 Sodium Chloride ([place] Saline Nasal) 1 nadeem PRN Q2HRS PRN NS NASAL CONGESTION Last administered on 04/10/19at 15:54; Start 04/10/19 at 11:45 Fluconazole/ Sodium Chloride 100 ml @ 100 mls/hr Q24H IV Last administered on 04/19/19at 12:23; Start 04/10/19 at 13:00 Meropenem 1 gm/ Sodium Chloride 100 ml @ 200 mls/hr Q8HRS IV Last administered on 04/20/19at 06:24; Start 04/10/19 at 14:00 Daptomycin 900 mg/ Sodium Chloride 50 ml @ 100 mls/hr Q24H IV Last administered on 04/16/19at 12:24; Start 04/10/19 at 13:00; Stop 04/17/19 at 10:05; Status DC Fentanyl Citrate (Fentanyl 2ml Vial) 25 mcg PRN Q5MIN PRN IV MILD PAIN 1-3; Start 04/10/19 at 13:15; Stop 04/11/19 at 11:49; Status DC Fentanyl Citrate (Fentanyl 2ml Vial) 50 mcg PRN Q5MIN PRN IV MODERATE TO SEVERE PAIN; Start 04/10/19 at 13:15; Stop 04/11/19 at 11:49; Status DC Morphine Sulfate (Morphine Sulfate) 1 mg PRN Q10MIN PRN IV SEVERE PAIN 7-10; Start 04/10/19 at 13:15; Stop 04/11/19 at 11:50; Status DC Ringer's Solution 1,000 ml @ 30 mls/hr Q24H IV ; Start 04/10/19 at 13:14; Stop 04/11/19 at 01:13; Status DC Hydromorphone HCl (Dilaudid) 0.5 mg PRN Q10MIN PRN IV SEV PAIN, Second choice; Start 04/10/19 at 13:15; Stop 04/11/19 at 11:50; Status DC Prochlorperazine Edisylate (Compazine) 5 mg PACU PRN PRN IV NAUSEA, MRX1; Start 04/10/19 at 13:15; Stop 04/11/19 at 11:50; Status DC Fentanyl Citrate (Fentanyl 2ml Vial) 100 mcg STK-MED ONCE .ROUTE ; Start 04/10/19 at 13:20; Stop 04/10/19 at 13:21; Status DC Sevoflurane (Ultane) 30 ml STK-MED ONCE IH ; Start 04/10/19 at 13:20; Stop 04/10/19 at 13:21; Status DC Propofol 20 ml @ As Directed STK-MED ONCE IV ; Start 04/10/19 at 13:20; Stop 04/10/19 at 13:21; Status DC Dexamethasone Sodium Phosphate (Decadron) 4 mg STK-MED ONCE .ROUTE ; Start 04/10/19 at 13:21; Stop 04/10/19 at 13:21; Status DC Lidocaine HCl (Lidocaine Pf 2% Vial) 5 ml STK-MED ONCE .ROUTE ; Start 04/10/19 at 13:21; Stop 04/10/19 at 13:21; Status DC Ondansetron HCl (Zofran) 4 mg STK-MED ONCE .ROUTE ; Start 04/10/19 at 13:21; Stop 04/10/19 at 13:21; Status DC Phenylephrine HCl (PHENYLEPHRINE in 0.9% NACL PF) 1 mg STK-MED ONCE IV ; Start 04/10/19 at 14:27; Stop 04/10/19 at 14:27; Status DC Aspirin (Ecotrin) 325 mg QHS PO Last administered on 04/19/19at 22:04; Start 04/10/19 at 21:00 Oxycodone/ Acetaminophen (Percocet 5/325) 1 tab PRN Q4HRS PRN PO MODERATE PAIN, LAST OPTION Last administered on 04/14/19at 15:41; Start 04/10/19 at 15:15; Stop 04/15/19 at 16:17; Status DC Oxycodone/ Acetaminophen (Percocet 5/325) 2 tab PRN Q4HRS PRN PO SEVERE PAIN, LAST OPTION Last administered on 04/14/19at 20:33; Start 04/10/19 at 15:30; Stop 04/15/19 at 16:17; Status DC Insulin Glargine (Lantus Syringe) 30 unit DAILY SQ Last administered on 04/20/19 09:27; Start 04/11/19 at 09:00 Sodium Polystyrene Sulfonate (Kayexalate) 15 gm 1X ONCE PO Last administered on 04/11/19 10:24; Start 04/11/19 at 09:00; Stop 04/11/19 at 09:01; Status DC Meclizine HCl (Antivert) 12.5 mg PRN Q6HRS PRN PO DIZZINESS Last administered on 04/11/19at 10:24; Start 04/11/19 at 09:30 Albuterol Sulfate (Ventolin Neb Soln) 2.5 mg PRN Q4HRS PRN NEB SHORTNESS OF BREATH Last administered on 04/14/19at 15:30; Start 04/11/19 at 10:45; Stop 04/14/19 at 15:46; Status DC Albuterol Sulfate (Ventolin Neb Soln) 2.5 mg 1X ONCE NEB Last administered on 04/11/19at 11:54; Start 04/11/19 at 11:00; Stop 04/11/19 at 11:01; Status DC Lactobacillus Rhamnosus (Culturelle) 1 cap BID PO Last administered on 04/19/19at 22:04; Start 04/11/19 at 12:00 Furosemide (Lasix) 40 mg 1X ONCE IVP Last administered on 04/11/19at 20:18; Start 04/11/19 at 19:00; Stop 04/11/19 at 19:01; Status DC Perflutren Protein Type A Microsphe (Optison) 0.66 mg 1X ONCE IV ; Start 04/12/19 at 10:00; Stop 04/12/19 at 10:01; Status DC Furosemide (Lasix) 40 mg 1X ONCE IVP Last administered on 04/12/19at 11:44; Start 04/12/19 at 10:45; Stop 04/12/19 at 10:49; Status DC Atenolol (Tenormin) 50 mg BID PO Last administered on 04/20/19at 09:22; Start 04/13/19 at 14:00 Morphine Sulfate (Morphine Sulfate) 1 mg PRN Q10MIN PRN IV SEVERE PAIN 7-10; Start 04/14/19 at 07:00; Stop 04/15/19 at 06:59; Status DC Ringer's Solution 1,000 ml @ 30 mls/hr Q24H IV ; Start 04/14/19 at 07:00; Stop 04/14/19 at 18:59; Status DC Hydromorphone HCl (Dilaudid) 0.5 mg PRN Q10MIN PRN IV SEV PAIN, Second choice; Start 04/14/19 at 07:00; Stop 04/15/19 at 06:59; Status DC Prochlorperazine Edisylate (Compazine) 5 mg PACU PRN PRN IV NAUSEA, MRX1; Start 04/14/19 at 07:00; Stop 04/15/19 at 06:59; Status DC Furosemide (Lasix) 40 mg 1X ONCE IVP Last administered on 04/13/19at 17:35; Start 04/13/19 at 17:00; Stop 04/13/19 at 17:01; Status DC Furosemide (Lasix) 40 mg DAILY PO Last administered on 04/19/19at 08:31; Start 04/14/19 at 09:00 Atorvastatin Calcium (Lipitor) 20 mg QHS PO Last administered on 04/19/19at 22:05; Start 04/13/19 at 21:00 Insulin Human Lispro (HumaLOG) 3 units 1X ONCE SQ Last administered on at 20:44; Start 04/13/19 at 21:00; Stop 04/13/19 at 21:01; Status DC Propofol 20 ml @ As Directed STK-MED ONCE IV ; Start 04/14/19 at 07:35; Stop 04/14/19 at 07:36; Status DC Dexamethasone Sodium Phosphate (Decadron) 4 mg STK-MED ONCE .ROUTE ; Start 04/14/19 at 07:35; Stop 04/14/19 at 07:36; Status DC Lidocaine HCl (Lidocaine Pf 2% Vial) 5 ml STK-MED ONCE .ROUTE ; Start 04/14/19 at 07:35; Stop 04/14/19 at 07:36; Status DC Ondansetron HCl (Zofran) 4 mg STK-MED ONCE .ROUTE ; Start 04/14/19 at 07:35; Stop 04/14/19 at 07:36; Status DC Sevoflurane (Ultane) 60 ml STK-MED ONCE IH ; Start 04/14/19 at 07:36; Stop 04/14/19 at 07:36; Status DC Sevoflurane (Ultane) 15 ml STK-MED ONCE IH ; Start 04/14/19 at 09:22; Stop 04/14/19 at 09:23; Status DC Morphine Sulfate (Morphine Sulfate) 1 mg PRN Q10MIN PRN IV SEVERE PAIN 7-10; Start 04/14/19 at 09:45; Stop 04/14/19 at 20:00; Status DC Ringer's Solution 1,000 ml @ 30 mls/hr Q24H IV ; Start 04/14/19 at 09:32; Stop 04/14/19 at 21:31; Status DC Hydromorphone HCl (Dilaudid) 0.5 mg PRN Q10MIN PRN IV SEV PAIN, Second choice Last administered on 04/14/19at 10:06; Start 04/14/19 at 09:45; Stop 04/14/19 at 20:00; Status DC Prochlorperazine Edisylate (Compazine) 5 mg PACU PRN PRN IV NAUSEA, MRX1; Start 04/14/19 at 09:45; Stop 04/14/19 at 20:00; Status DC Fentanyl Citrate (Fentanyl 2ml Vial) 100 mcg STK-MED ONCE .ROUTE ; Start 04/14/19 at 09:33; Stop 04/14/19 at 09:33; Status DC Albuterol Sulfate (Ventolin Neb Soln) 2.5 mg RTQID NEB Last administered on 04/18/19at 07:20; Start 04/14/19 at 15:45 Morphine Sulfate (Morphine Sulfate) 1 mg PRN Q10MIN PRN IV SEVERE PAIN 7-10; Start 04/17/19 at 07:00; Stop 04/18/19 at 06:59; Status DC Ringer's Solution 1,000 ml @ 30 mls/hr Q24H IV ; Start 04/17/19 at 07:00; Stop 04/17/19 at 18:59; Status DC Lidocaine HCl (Xylocaine-Mpf 1% 2ml Vial) 2 ml PRN 1X PRN ID PRIOR TO IV START; Start 04/17/19 at 07:00; Stop 04/18/19 at 06:59; Status DC Hydromorphone HCl (Dilaudid) 0.5 mg PRN Q10MIN PRN IV SEV PAIN, Second choice; Start 04/17/19 at 07:00; Stop 04/18/19 at 06:59; Status DC Prochlorperazine Edisylate (Compazine) 5 mg PACU PRN PRN IV NAUSEA, MRX1; Start 04/17/19 at 07:00; Stop 04/18/19 at 06:59; Status DC Bupivacaine HCl/ Epinephrine Bitart (Sensorcaine-Epi 0.25%-1:[id number] Mpf) 30 ml 1X ONCE INJ ; Start 04/17/19 at 06:00; Stop 04/17/19 at 06:01; Status DC Gadoterate Meglumine (Dotarem) 29.8 ml 1X ONCE IVP Last administered on 04/17/19at 15:15; Start 04/17/19 at 15:00; Stop 04/17/19 at 15:06; Status DC Ondansetron HCl (Zofran) 4 mg PRN Q6HRS PRN IV NAUSEA/VOMITING; Start 04/20/19 at 07:00; Stop 04/21/19 at 06:59 Fentanyl Citrate (Fentanyl 2ml Vial) 25 mcg PRN Q5MIN PRN IV MILD PAIN 1-3; Start 04/20/19 at 07:00; Stop 04/21/19 at 06:59 Fentanyl Citrate (Fentanyl 2ml Vial) 50 mcg PRN Q5MIN PRN IV MODERATE TO SEVERE PAIN; Start 04/20/19 at 07:00; Stop 04/21/19 at 06:59 Morphine Sulfate (Morphine Sulfate) 1 mg PRN Q10MIN PRN IV SEVERE PAIN 7-10; Start 04/20/19 at 07:00; Stop 04/21/19 at 06:59 Ringer's Solution 1,000 ml @ 30 mls/hr Q24H IV Last administered on 04/20/19at 10:37; Start 04/20/19 at 07:00; Stop 04/20/19 at 18:59 Lidocaine HCl (Xylocaine-Mpf 1% 2ml Vial) 2 ml PRN 1X PRN ID PRIOR TO IV START; Start 04/20/19 at 07:00; Stop 04/21/19 at 06:59 Hydromorphone HCl (Dilaudid) 0.5 mg PRN Q10MIN PRN IV SEV PAIN, Second choice; Start 04/20/19 at 07:00; Stop 04/21/19 at 06:59 Prochlorperazine Edisylate (Compazine) 5 mg PACU PRN PRN IV NAUSEA, MRX1; Start 04/20/19 at 07:00; Stop 04/21/19 at 06:59 Bupivacaine HCl/ Epinephrine Bitart (Sensorcaine-Epi 0.25%-1:[id number] Mpf) 30 ml 1X ONCE INJ ; Start 04/20/19 at 10:30; Stop 04/20/19 at 10:31; Status DC Active Scripts Active Reported Atenolol 50 Mg Tablet 1 Tab PO BID Vitals/I & O Vital Sign - Last 24 Hours 04/19/19 04/19/19 04/19/19 04/19/19 15:00 15:02 17:36 18:36 Temp 98.1 98.1 Pulse 58 Resp 18 B/P (MAP) 136/59 (84) Pulse Ox 100 93 93 93 O2 Delivery Room Air Nasal Cannula Nasal Cannula Nasal Cannula O2 Flow Rate 3.0 3.0 3.0 04/19/19 04/19/19 04/19/19 04/19/19 19:00 19:50 22:04 22:15 Temp 98.1 98.1 Pulse 58 58 B/P (MAP) 140/95 (110) 140/95 Pulse Ox 93 O2 Delivery Nasal Cannula Nasal Cannula Nasal Cannula O2 Flow Rate 3.0 3.0 3.0 04/19/19 04/19/19 04/20/19 04/20/19 23:09 23:15 03:00 04:26 Temp 98.8 98.3 98.8 98.3 Pulse 54 54 B/P (MAP) 150/56 (87) 130/55 (80) Pulse Ox 93 98 O2 Delivery Nasal Cannula Nasal Cannula Nasal Cannula Room Air O2 Flow Rate 3.0 3.0 3.0 04/20/19 04/20/19 04/20/19 04/20/19 04:56 07:00 07:45 09:22 Temp 97.7 97.7 Pulse 48 60 Resp 16 B/P (MAP) 136/69 (91) 136/69 Pulse Ox 97 O2 Delivery Nasal Cannula Nasal Cannula Nasal Cannula O2 Flow Rate 3.0 3.0 3.0 04/20/19 04/20/19 04/20/19 04/20/19 11:00 12:03 12:03 12:21 Temp 97.9 97.3 97.9 97.3 Pulse 50 55 56 Resp 20 17 16 B/P (MAP) 143/66 96/55 102/51 Pulse Ox 97 98 O2 Delivery Room Air Simple Mask Nasal Cannula Nasal Cannula O2 Flow Rate 10 2 2 Intake and Output 04/19/19 04/19/19 04/20/19 15:00 23:00 07:00 Output Total 1050 ml 1000 ml Balance -1050 ml -1000 ml TAYLOR CORDOVA MD Apr 20, 2019 12:33
[2019-04-20] MEDS: HYDROcodone/APAP 5/325MG 1 TAB TABLET PO PRN ×2 (13:21→20:35)
[2019-04-20] MEDS: FLUCONAZOLE 200MG/100ML PREMIX 100 ML IV SCH (13:21)
[2019-04-20 15:00] VITALS: BP 129/63
--- NOTE | 2019-04-20 15:36 | NUR ---
Wound Care Wound care follow up for wound vac applicatio in OR with Dr Sandoval. Wound pictured and measured and Veraflo applied with 6 ml NS soak for 10 min every 3.5 hours. No other wounds assessed during this visit. WC will follow up on Tuesday for vac dressing change.
[2019-04-20 19:00] VITALS: BP 124/55
[2019-04-20] MEDS: ASPIRIN ENTERIC COATED 325 MG TABLET.DR. PO SCH (20:31)
[2019-04-20] MEDS: ATORVASTATIN CALCIUM 20 MG TABLET PO SCH (20:34)
[2019-04-20] MEDS: GABAPENTIN 400 MG CAPSULE. PO SCH (20:36)
[2019-04-20 23:00] VITALS: BP 125/54
[2019-04-21] MEDS: fentaNYL PF VIAL 100 MCG/2 ML VIAL IV PRN ×4 (01:14→17:57)
[2019-04-21 03:00] VITALS: BP 120/57
--- NOTE | 2019-04-21 05:44 | NUR ---
Upon assessment at 2139, this nurse noticed pt.'s left foot was bleeding onto pillow case. Wound vac was checked and noticed it was not draining wound like it needed to be. There was a pool of blood inside of dressing. Vac dressing was taken off and a wet to dry dressing was placed on surgical incision. Will pass on to day shift. house carpenter helper charge nurse was notified.
[2019-04-21] MEDS: HYDROcodone/APAP 5/325MG 1 TAB TABLET PO PRN ×3 (06:17→21:37)
[2019-04-21] MEDS: MEROPENEM 1 GM in IV NORMAL SALINE 100ML 100 ML IV SCH ×3 (06:21→21:32)
[2019-04-21 07:00] VITALS: BP 130/61
[2019-04-21 07:47] LABS: BASO # 0.1 x10^3/uL (0.0-0.2); BASO % 1 % (0-3); EOS % 0 % (0-3); HEMATOCRIT 35.9 % (36.0-47.0); HEMOGLOBIN 11.9 g/dL (12.0-15.5); LYMPH # 1.3 x10^3/uL (1.0-4.8); LYMPH % 13 % (24-48); MEAN CORPUSCULAR HEMOGLOBIN 29 pg (25-35); MEAN CORPUSCULAR HGB CONC 33 g/dL (31-37); MEAN CORPUSCULAR VOLUME 88 fL (79-100); MONO # 0.4 x10^3/uL (0.0-1.1); MONO % 4 % (0-9); NEUT # 8.7 x10^3/uL (1.8-7.7); NEUT % 82 % (31-73); PLATELET COUNT 269 x10^3/uL (140-400); RED BLOOD COUNT 4.09 x10^6/uL (3.50-5.40); RED CELL DISTRIBUTION WIDTH 16.4 % (11.5-14.5); WHITE BLOOD COUNT 10.6 x10^3/uL (4.0-11.0)
[2019-04-21] MEDS ORDERED: ALBUTEROL SULFATE 2.5 MG/3 ML NEBU. NEB PRN (08:00)
[2019-04-21 08:37] LABS: CALCIUM 8.9 mg/dL (8.5-10.1); CREATININE 0.8 mg/dL (0.6-1.0); GFR 73.7; POTASSIUM 5.5 mmol/L (3.5-5.1)
[2019-04-21] MEDS: GABAPENTIN 300 MG CAPSULE. PO SCH ×2 (08:46→14:45)
[2019-04-21] MEDS: FUROSEMIDE 40 MG TABLET. PO SCH (08:47)
[2019-04-21] MEDS: ATENOLOL 50 MG TABLET. PO SCH ×2 (08:47→21:34)
[2019-04-21] MEDS: LACTOBACILLUS RHAMNOSUS GG 1 CAPSULE. PO SCH ×2 (08:47→21:32)
--- NOTE | 2019-04-21 08:50 | NUR ---
Dr. youngblood in to see pt, notified of [place] malfuntioing and that a wet to dry dressing was applied. Addendum: 04/23/19 at 1104 by LEO GARCIA RN No verbal orders received a that time.
[2019-04-21] MEDS: INSULIN LISPRO 300 UNITS/3 ML VIAL. SQ SCH ×6 (08:52→17:32)
[2019-04-21] MEDS: INSULIN GLARGINE SYRINGE. SQ SCH ×2 (08:53→21:00)
--- NOTE | 2019-04-21 09:29 | PDOC ---
PROGRESS NOTES Chief Complaint Chief Complaint 1. LEft THIRD TOE Gangrene -s/p amputation 04/10 (POD # ) 2. RT heel ulcer - wound care 3. NOnosteo 3rd toe digit s/p clean ray amputation 4. DM with hgba1c 9.7 and neuropathy and target organ damage - hx osteo, partial amputation big toe 5. Obesity, morbid BMI 53 6. HTN - controlled 7,. Lymphedema 8. POst op confusion, transient 9, POst op mild hyperkalemia 5.5 10. Post op ALISIA, VMN 11. diastolic CHF echo 55% 12. Left rotator cuff calcific tendinopathy. 13. severe protein-caloric malnutrition 14 PULMONARY HYPERTENSION PA pressure 50 15. Right plantar wound s/p debridement devitalized dermis, 04/14 History of Present Illness History of Present Illness s.p re I and D 04/20 She has no issues SHe is SP and we are working on IV abx at [facility] as OP - sw on case - pt aware BS great with my inuslin adjustments IV INvanz over at [facility] as OP, qdaily to start 2 weeks first - dw Dr Finnegan and SW CXR interval, stable CHF echo: good ef On po lasix - she always concerned about leg edema EARLIER ENTRY Long discussion with her about losing weight, HELPING Herself turn q2 and HELPING herself do the bed pain herself K 5.,5 - extra lasix 20 IVP now PLAN: IV merrem, keep current insulin regimen IV invanz as OP x 2 weeks at [facility] [place] COnt PO lasix POst op labs ff intra op cx Vitals Vitals Vital Signs Date Time Temp Pulse Resp B/P (MAP) Pulse Ox O2 Delivery O2 Flow Rate FiO2 04/21/19 08:47 51 130/61 04/21/19 07:32 Nasal Cannula 3.0 04/21/19 07:00 97.7 16 98 97.7 Physical Exam Physical Exam GENNERAL: Propped up in bed, alert, NAD HEENT: Oral cavity, pharynx is clear. NECK: Supple LUNGS: Clear to auscultation bilaterally HEART: S1, S2. ABDOMEN: Morbidly obese, soft, nontender EXTREMITIES: Foot wounds bilaterally, dressings in place. left 3 rd toe amp site with some necrotic tissueDRESSINGS DRY, CLEAN SKIN: warm to touch NEUROLOGIC: Nonfocal. RUE- PICC clean General: Alert, Oriented X3, Cooperative, No acute distress Heart: Regular rate, Normal S1, Normal S2, No murmurs Lungs: Clear Abdomen: Normal bowel sounds, Soft, No tenderness Extremities: No clubbing, No cyanosis, Other (left leg dressing, rt leg dressing, amputated toe wound vac PLANTAR ASPECT SWOLLEN) Skin: Other (left foot wound with wound vac and right foot wound) Labs LABS Laboratory Tests Test 04/20/19 10:58 04/20/19 12:10 04/20/19 13:41 04/20/19 17:32 Glucose (Fingerstick) 99 mg/dL (70-99) 109 mg/dL (70-99) 149 mg/dL (70-99) 285 mg/dL (70-99) Test 04/20/19 21:01 04/21/19 07:05 04/21/19 07:35 Glucose (Fingerstick) 274 mg/dL (70-99) 224 mg/dL (70-99) White Blood Count 10.6 x10^3/uL (4.0-11.0) Red Blood Count 4.09 x10^6/uL (3.50-5.40) Hemoglobin 11.9 g/dL (12.0-15.5) Hematocrit 35.9 % (36.0-47.0) Mean Corpuscular Volume 88 fL (79-100) Mean Corpuscular Hemoglobin 29 pg (25-35) Mean Corpuscular Hemoglobin Concent 33 g/dL (31-37) Red Cell Distribution Width 16.4 % (11.5-14.5) Platelet Count 269 x10^3/uL (140-400) Neutrophils (%) (Auto) 82 % (31-73) Lymphocytes (%) (Auto) 13 % (24-48) Monocytes (%) (Auto) 4 % (0-9) Eosinophils (%) (Auto) 0 % (0-3) Basophils (%) (Auto) 1 % (0-3) Neutrophils # (Auto) 8.7 x10^3/uL (1.8-7.7) Lymphocytes # (Auto) 1.3 x10^3/uL (1.0-4.8) Monocytes # (Auto) 0.4 x10^3/uL (0.0-1.1) Eosinophils # (Auto) 0.0 x10^3/uL (0.0-0.7) Basophils # (Auto) 0.1 x10^3/uL (0.0-0.2) Sodium Level 140 mmol/L (136-145) Potassium Level 5.5 mmol/L (3.5-5.1) Chloride Level 100 mmol/L (98-107) Carbon Dioxide Level 36 mmol/L (21-32) Anion Gap 4 (6-14) Blood Urea Nitrogen 30 mg/dL (7-20) Creatinine 0.8 mg/dL (0.6-1.0) Estimated GFR (Cockcroft-Gault) 73.7 Glucose Level 211 mg/dL (70-99) Calcium Level 8.9 mg/dL (8.5-10.1) Review of Systems Review of Systems A 14 point ROS was completed with the following noted as positive: Other systems reviewed and negative. \CONSTITUTIONAL: No fever or chills EYES: No recent changes SKIN: No rash or itching CARDIOVASCULAR: No chest pain, syncope, palpitations, or edema RESPIRATORY: No SOB or cough GASTROINTESTINAL: No nausea, vomiting or abdominal pain NEUROLOGICAL: No headaches or weakness ENDOCRINE: No cold or heat intolerance GENITOURINARY: No urgency or frequency of urination MUSCULOSKELETAL: No back pain or joint pain LYMPHATICS: No enlarged lymph nodes PSYCHIATRIC: No anxiety or depression Comment Review of Relevant I have reviewed the following items adrienne (where applicable) has been applied. Labs Laboratory Tests Test 04/19/19 11:06 04/19/19 16:53 04/19/19 20:06 04/19/19 22:19 Glucose (Fingerstick) 90 mg/dL (70-99) 103 mg/dL (70-99) 105 mg/dL (70-99) 116 mg/dL (70-99) Test 04/20/19 03:12 04/20/19 08:10 04/20/19 10:58 04/20/19 12:10 Glucose (Fingerstick) 134 mg/dL (70-99) 105 mg/dL (70-99) 99 mg/dL (70-99) 109 mg/dL (70-99) Test 04/20/19 13:41 04/20/19 17:32 04/20/19 21:01 04/21/19 07:05 Glucose (Fingerstick) 149 mg/dL (70-99) 285 mg/dL (70-99) 274 mg/dL (70-99) 224 mg/dL (70-99) Test 04/21/19 07:35 White Blood Count 10.6 x10^3/uL (4.0-11.0) Red Blood Count 4.09 x10^6/uL (3.50-5.40) Hemoglobin 11.9 g/dL (12.0-15.5) Hematocrit 35.9 % (36.0-47.0) Mean Corpuscular Volume 88 fL (79-100) Mean Corpuscular Hemoglobin 29 pg (25-35) Mean Corpuscular Hemoglobin Concent 33 g/dL (31-37) Red Cell Distribution Width 16.4 % (11.5-14.5) Platelet Count 269 x10^3/uL (140-400) Neutrophils (%) (Auto) 82 % (31-73) Lymphocytes (%) (Auto) 13 % (24-48) Monocytes (%) (Auto) 4 % (0-9) Eosinophils (%) (Auto) 0 % (0-3) Basophils (%) (Auto) 1 % (0-3) Neutrophils # (Auto) 8.7 x10^3/uL (1.8-7.7) Lymphocytes # (Auto) 1.3 x10^3/uL (1.0-4.8) Monocytes # (Auto) 0.4 x10^3/uL (0.0-1.1) Eosinophils # (Auto) 0.0 x10^3/uL (0.0-0.7) Basophils # (Auto) 0.1 x10^3/uL (0.0-0.2) Sodium Level 140 mmol/L (136-145) Potassium Level 5.5 mmol/L (3.5-5.1) Chloride Level 100 mmol/L (98-107) Carbon Dioxide Level 36 mmol/L (21-32) Anion Gap 4 (6-14) Blood Urea Nitrogen 30 mg/dL (7-20) Creatinine 0.8 mg/dL (0.6-1.0) Estimated GFR (Cockcroft-Gault) 73.7 Glucose Level 211 mg/dL (70-99) Calcium Level 8.9 mg/dL (8.5-10.1) Laboratory Tests Test 04/20/19 10:58 04/20/19 12:10 04/20/19 13:41 04/20/19 17:32 Glucose (Fingerstick) 99 mg/dL (70-99) 109 mg/dL (70-99) 149 mg/dL (70-99) 285 mg/dL (70-99) Test 04/20/19 21:01 04/21/19 07:05 04/21/19 07:35 Glucose (Fingerstick) 274 mg/dL (70-99) 224 mg/dL (70-99) White Blood Count 10.6 x10^3/uL (4.0-11.0) Red Blood Count 4.09 x10^6/uL (3.50-5.40) Hemoglobin 11.9 g/dL (12.0-15.5) Hematocrit 35.9 % (36.0-47.0) Mean Corpuscular Volume 88 fL (79-100) Mean Corpuscular Hemoglobin 29 pg (25-35) Mean Corpuscular Hemoglobin Concent 33 g/dL (31-37) Red Cell Distribution Width 16.4 % (11.5-14.5) Platelet Count 269 x10^3/uL (140-400) Neutrophils (%) (Auto) 82 % (31-73) Lymphocytes (%) (Auto) 13 % (24-48) Monocytes (%) (Auto) 4 % (0-9) Eosinophils (%) (Auto) 0 % (0-3) Basophils (%) (Auto) 1 % (0-3) Neutrophils # (Auto) 8.7 x10^3/uL (1.8-7.7) Lymphocytes # (Auto) 1.3 x10^3/uL (1.0-4.8) Monocytes # (Auto) 0.4 x10^3/uL (0.0-1.1) Eosinophils # (Auto) 0.0 x10^3/uL (0.0-0.7) Basophils # (Auto) 0.1 x10^3/uL (0.0-0.2) Sodium Level 140 mmol/L (136-145) Potassium Level 5.5 mmol/L (3.5-5.1) Chloride Level 100 mmol/L (98-107) Carbon Dioxide Level 36 mmol/L (21-32) Anion Gap 4 (6-14) Blood Urea Nitrogen 30 mg/dL (7-20) Creatinine 0.8 mg/dL (0.6-1.0) Estimated GFR (Cockcroft-Gault) 73.7 Glucose Level 211 mg/dL (70-99) Calcium Level 8.9 mg/dL (8.5-10.1) Microbiology 04/14/19 Anaerobic/Aerobic Culture - Final, Complete 04/14/19 Anaerobic Culture Result 1 (DEANNE) - Final, Complete 04/14/19 Aerobic Culture - Final, Complete 04/14/19 Aerobic Culture Result 1 (DEANNE) - Final, Complete 04/14/19 Gram Stain - Final, Complete 04/14/19 Gram Stain Result 1 (DEANNE) - Final, Complete 04/14/19 Gram Stain Result 2 (DEANNE) - Final, Complete 04/10/19 Blood Culture - Final, Complete NO GROWTH AFTER 5 DAYS Medications Current Medications Vancomycin HCl (Vanco Per Pharmacy) 1 each PRN DAILY PRN MC SEE COMMENTS Last administered on 04/10/19at 03:41; Start 04/09/19 at 22:30; Stop 04/10/19 at 12:36; Status DC Piperacillin Sod/ Tazobactam Sod (Zosyn Per Pharmacy) 1 each PRN DAILY PRN MC SEE COMMENTS; Start 04/09/19 at 22:30; Stop 04/10/19 at 12:35; Status DC Sodium Chloride 1,000 ml @ 100 mls/hr Q10H IV Last administered on 04/11/19at 05:23; Start 04/09/19 at 23:00; Stop 04/11/19 at 09:26; Status DC Acetaminophen/ Hydrocodone Bitart (Lortab 5/325) 1 tab PRN Q4HRS PRN PO MODERATE PAIN 4-6 Last administered on 04/20/19at 13:21; Start 04/09/19 at 22:30 Acetaminophen/ Hydrocodone Bitart (Lortab 5/325) 2 tab PRN Q4HRS PRN PO SEVERE PAIN 7-10 Last administered on 04/21/19at 06:17; Start 04/09/19 at 22:30 Insulin Glargine (Lantus Syringe) 70 unit QHS SQ Last administered on 04/20/19at 21:00; Start 04/09/19 at 23:00 Insulin Human Lispro (HumaLOG) 20 units 1X ONCE SQ Last administered on 04/09/19at 23:02; Start 04/09/19 at 23:00; Stop 04/09/19 at 23:01; Status DC Insulin Human Lispro (HumaLOG) 0-7 UNITS TIDWMEALS SQ ; Start 04/10/19 at 08:00; Stop 04/10/19 at 08:08; Status DC Dextrose (Dextrose 50%-Water Syringe) 12.5 gm PRN Q15MIN PRN IV SEE COMMENTS; Start 04/09/19 at 22:30; Status Cancel Dextrose 250 ml PRN Q15MIN PRN IV SEE COMMENTS; Start 04/09/19 at 22:30; Status Cancel Insulin Human Lispro (HumaLOG) 26 units TIDAC SQ Last administered on 04/21/19at 08:53; Start 04/10/19 at 07:30 Piperacillin Sod/ Tazobactam Sod 3.375 gm/Sodium Chloride 50 ml @ 100 mls/hr Q6HRS IV Last administered on 04/10/19at 11:35; Start 04/10/19 at 00:00; Stop 04/10/19 at 12:35; Status DC Gabapentin (Neurontin) 900 mg [id number] PO Last administered on 04/21/19at 08:46; Start 04/10/19 at 09:00 Gabapentin (Neurontin) 1,200 mg HS PO Last administered on 04/20/19at 20:36; Start 04/10/19 at 21:00 Atenolol (Tenormin) 40 mg DAILY PO ; Start 04/10/19 at 09:00; Status UNV Vancomycin HCl 2 gm/Sodium Chloride 500 ml @ 250 mls/hr Q12H IV Last administered on 04/10/19at 05:20; Start 04/10/19 at 05:00; Stop 04/10/19 at 12:36; Status DC Vancomycin HCl (Vancomycin Trough Level) 1 each 1X ONCE MC ; Start 04/11/19 at 04:30; Stop 04/11/19 at 04:31; Status Cancel Insulin Human Lispro (HumaLOG) 0-9 UNITS TIDWMEALS SQ Last administered on 04/21/19at 08:52; Start 04/10/19 at 12:00 Dextrose (Dextrose 50%-Water Syringe) 12.5 gm PRN Q15MIN PRN IV SEE COMMENTS; Start 04/10/19 at 08:15 Dextrose 250 ml PRN Q15MIN PRN IV SEE COMMENTS; Start 04/10/19 at 08:15 Acetaminophen (Tylenol) 500 mg PRN Q6HRS PRN PO MILD PAIN / TEMP Last administered on 04/12/19at 13:04; Start 04/10/19 at 08:15 Ondansetron HCl (Zofran) 4 mg PRN Q6HRS PRN IV NAUSEA/VOMITING Last administered on 04/13/19 12:24; Start 04/10/19 at 08:15 Fentanyl Citrate (Fentanyl 2ml Vial) 50 mcg PRN Q2HR PRN IV PAIN Last administered on 04/21/19 04:50; Start 04/10/19 at 08:15 Sodium Chloride (Eclectic Saline Nasal) 1 nadeem PRN Q2HRS PRN NS NASAL CONGESTION Last administered on 04/10/19at 15:54; Start 04/10/19 at 11:45 Fluconazole/ Sodium Chloride 100 ml @ 100 mls/hr Q24H IV Last administered on 04/20/19at 13:21; Start 04/10/19 at 13:00 Meropenem 1 gm/ Sodium Chloride 100 ml @ 200 mls/hr Q8HRS IV Last administered on 04/21/19at 06:21; Start 04/10/19 at 14:00 Daptomycin 900 mg/ Sodium Chloride 50 ml @ 100 mls/hr Q24H IV Last administered on 04/16/19at 12:24; Start 04/10/19 at 13:00; Stop 04/17/19 at 10:05; Status DC Fentanyl Citrate (Fentanyl 2ml Vial) 25 mcg PRN Q5MIN PRN IV MILD PAIN 1-3; Start 04/10/19 at 13:15; Stop 04/11/19 at 11:49; Status DC Fentanyl Citrate (Fentanyl 2ml Vial) 50 mcg PRN Q5MIN PRN IV MODERATE TO SEVERE PAIN; Start 04/10/19 at 13:15; Stop 04/11/19 at 11:49; Status DC Morphine Sulfate (Morphine Sulfate) 1 mg PRN Q10MIN PRN IV SEVERE PAIN 7-10; Start 04/10/19 at 13:15; Stop 04/11/19 at 11:50; Status DC Ringer's Solution 1,000 ml @ 30 mls/hr Q24H IV ; Start 04/10/19 at 13:14; Stop 04/11/19 at 01:13; Status DC Hydromorphone HCl (Dilaudid) 0.5 mg PRN Q10MIN PRN IV SEV PAIN, Second choice; Start 04/10/19 at 13:15; Stop 04/11/19 at 11:50; Status DC Prochlorperazine Edisylate (Compazine) 5 mg PACU PRN PRN IV NAUSEA, MRX1; Start 04/10/19 at 13:15; Stop 04/11/19 at 11:50; Status DC Fentanyl Citrate (Fentanyl 2ml Vial) 100 mcg STK-MED ONCE .ROUTE ; Start 04/10/19 at 13:20; Stop 04/10/19 at 13:21; Status DC Sevoflurane (Ultane) 30 ml STK-MED ONCE IH ; Start 04/10/19 at 13:20; Stop 04/10/19 at 13:21; Status DC Propofol 20 ml @ As Directed STK-MED ONCE IV ; Start 04/10/19 at 13:20; Stop 04/10/19 at 13:21; Status DC Dexamethasone Sodium Phosphate (Decadron) 4 mg STK-MED ONCE .ROUTE ; Start 04/10/19 at 13:21; Stop 04/10/19 at 13:21; Status DC Lidocaine HCl (Lidocaine Pf 2% Vial) 5 ml STK-MED ONCE .ROUTE ; Start 04/10/19 at 13:21; Stop 04/10/19 at 13:21; Status DC Ondansetron HCl (Zofran) 4 mg STK-MED ONCE .ROUTE ; Start 04/10/19 at 13:21; Stop 04/10/19 at 13:21; Status DC Phenylephrine HCl (PHENYLEPHRINE in 0.9% NACL PF) 1 mg STK-MED ONCE IV ; Start 04/10/19 at 14:27; Stop 04/10/19 at 14:27; Status DC Aspirin (Ecotrin) 325 mg QHS PO Last administered on 04/20/19at 20:31; Start 04/10/19 at 21:00 Oxycodone/ Acetaminophen (Percocet 5/325) 1 tab PRN Q4HRS PRN PO MODERATE PAIN, LAST OPTION Last administered on 04/14/19at 15:41; Start 04/10/19 at 15:15; Stop 04/15/19 at 16:17; Status DC Oxycodone/ Acetaminophen (Percocet 5/325) 2 tab PRN Q4HRS PRN PO SEVERE PAIN, LAST OPTION Last administered on 04/14/19at 20:33; Start 04/10/19 at 15:30; Stop 04/15/19 at 16:17; Status DC Insulin Glargine (Lantus Syringe) 30 unit DAILY SQ Last administered on 04/21/19 08:53; Start 04/11/19 at 09:00 Sodium Polystyrene Sulfonate (Kayexalate) 15 gm 1X ONCE PO Last administered on 04/11/19at 10:24; Start 04/11/19 at 09:00; Stop 04/11/19 at 09:01; Status DC Meclizine HCl (Antivert) 12.5 mg PRN Q6HRS PRN PO DIZZINESS Last administered on 04/11/19at 10:24; Start 04/11/19 at 09:30 Albuterol Sulfate (Ventolin Neb Soln) 2.5 mg PRN Q4HRS PRN NEB SHORTNESS OF BREATH Last administered on 04/14/19at 15:30; Start 04/11/19 at 10:45; Stop 04/14/19 at 15:46; Status DC Albuterol Sulfate (Ventolin Neb Soln) 2.5 mg 1X ONCE NEB Last administered on 04/11/19at 11:54; Start 04/11/19 at 11:00; Stop 04/11/19 at 11:01; Status DC Lactobacillus Rhamnosus (Culturelle) 1 cap BID PO Last administered on 04/21/19at 08:47; Start 04/11/19 at 12:00 Furosemide (Lasix) 40 mg 1X ONCE IVP Last administered on 04/11/19 20:18; Start 04/11/19 at 19:00; Stop 04/11/19 at 19:01; Status DC Perflutren Protein Type A Microsphe (Optison) 0.66 mg 1X ONCE IV ; Start 04/12/19 at 10:00; Stop 04/12/19 at 10:01; Status DC Furosemide (Lasix) 40 mg 1X ONCE IVP Last administered on 04/12/19at 11:44; Start 04/12/19 at 10:45; Stop 04/12/19 at 10:49; Status DC Atenolol (Tenormin) 50 mg BID PO Last administered on 04/21/19at 08:47; Start 04/13/19 at 14:00 Morphine Sulfate (Morphine Sulfate) 1 mg PRN Q10MIN PRN IV SEVERE PAIN 7-10; Start 04/14/19 at 07:00; Stop 04/15/19 at 06:59; Status DC Ringer's Solution 1,000 ml @ 30 mls/hr Q24H IV ; Start 04/14/19 at 07:00; Stop 04/14/19 at 18:59; Status DC Hydromorphone HCl (Dilaudid) 0.5 mg PRN Q10MIN PRN IV SEV PAIN, Second choice; Start 04/14/19 at 07:00; Stop 04/15/19 at 06:59; Status DC Prochlorperazine Edisylate (Compazine) 5 mg PACU PRN PRN IV NAUSEA, MRX1; Start 04/14/19 at 07:00; Stop 04/15/19 at 06:59; Status DC Furosemide (Lasix) 40 mg 1X ONCE IVP Last administered on 04/13/19at 17:35; Start 04/13/19 at 17:00; Stop 04/13/19 at 17:01; Status DC Furosemide (Lasix) 40 mg DAILY PO Last administered on 04/21/19at 08:47; Start 04/14/19 at 09:00 Atorvastatin Calcium (Lipitor) 20 mg QHS PO Last administered on 04/20/19at 20:34; Start 04/13/19 at 21:00 Insulin Human Lispro (HumaLOG) 3 units 1X ONCE SQ Last administered on 04/13/19at 20:44; Start 04/13/19 at 21:00; Stop 04/13/19 at 21:01; Status DC Propofol 20 ml @ As Directed STK-MED ONCE IV ; Start 04/14/19 at 07:35; Stop 04/14/19 at 07:36; Status DC Dexamethasone Sodium Phosphate (Decadron) 4 mg STK-MED ONCE .ROUTE ; Start 04/14/19 at 07:35; Stop 04/14/19 at 07:36; Status DC Lidocaine HCl (Lidocaine Pf 2% Vial) 5 ml STK-MED ONCE .ROUTE ; Start 04/14/19 at 07:35; Stop 04/14/19 at 07:36; Status DC Ondansetron HCl (Zofran) 4 mg STK-MED ONCE .ROUTE ; Start 04/14/19 at 07:35; Stop 04/14/19 at 07:36; Status DC Sevoflurane (Ultane) 60 ml STK-MED ONCE IH ; Start 04/14/19 at 07:36; Stop 04/14/19 at 07:36; Status DC Sevoflurane (Ultane) 15 ml STK-MED ONCE IH ; Start 04/14/19 at 09:22; Stop 04/14/19 at 09:23; Status DC Morphine Sulfate (Morphine Sulfate) 1 mg PRN Q10MIN PRN IV SEVERE PAIN 7-10; Start 04/14/19 at 09:45; Stop 04/14/19 at 20:00; Status DC Ringer's Solution 1,000 ml @ 30 mls/hr Q24H IV ; Start 04/14/19 at 09:32; Stop 04/14/19 at 21:31; Status DC Hydromorphone HCl (Dilaudid) 0.5 mg PRN Q10MIN PRN IV SEV PAIN, Second choice Last administered on 04/14/19at 10:06; Start 04/14/19 at 09:45; Stop 04/14/19 at 20:00; Status DC Prochlorperazine Edisylate (Compazine) 5 mg PACU PRN PRN IV NAUSEA, MRX1; S tart 04/14/19 at 09:45; Stop 04/14/19 at 20:00; Status DC Fentanyl Citrate (Fentanyl 2ml Vial) 100 mcg STK-MED ONCE .ROUTE ; Start 04/14/19 at 09:33; Stop 04/14/19 at 09:33; Status DC Albuterol Sulfate (Ventolin Neb Soln) 2.5 mg RTQID NEB Last administered on 04/18/19at 07:20; Start 04/14/19 at 15:45; Stop 04/20/19 at 23:47; Status DC Morphine Sulfate (Morphine Sulfate) 1 mg PRN Q10MIN PRN IV SEVERE PAIN 7-10; Start 04/17/19 at 07:00; Stop 04/18/19 at 06:59; Status DC Ringer's Solution 1,000 ml @ 30 mls/hr Q24H IV ; Start 04/17/19 at 07:00; Stop 04/17/19 at 18:59; Status DC Lidocaine HCl (Xylocaine-Mpf 1% 2ml Vial) 2 ml PRN 1X PRN ID PRIOR TO IV START; Start 04/17/19 at 07:00; Stop 04/18/19 at 06:59; Status DC Hydromorphone HCl (Dilaudid) 0.5 mg PRN Q10MIN PRN IV SEV PAIN, Second choice; Start 04/17/19 at 07:00; Stop 04/18/19 at 06:59; Status DC Prochlorperazine Edisylate (Compazine) 5 mg PACU PRN PRN IV NAUSEA, MRX1; Start 04/17/19 at 07:00; Stop 04/18/19 at 06:59; Status DC Bupivacaine HCl/ Epinephrine Bitart (Sensorcaine-Epi 0.25%-1:[id number] Mpf) 30 ml 1X ONCE INJ ; Start 04/17/19 at 06:00; Stop 04/17/19 at 06:01; Status DC Gadoterate Meglumine (Dotarem) 29.8 ml 1X ONCE IVP Last administered on 04/17/19at 15:15; Start 04/17/19 at 15:00; Stop 04/17/19 at 15:06; Status DC Ondansetron HCl (Zofran) 4 mg PRN Q6HRS PRN IV NAUSEA/VOMITING; Start 04/20/19 at 07:00; Stop 04/21/19 at 06:59; Status DC Fentanyl Citrate (Fentanyl 2ml Vial) 25 mcg PRN Q5MIN PRN IV MILD PAIN 1-3; Start 04/20/19 at 07:00; Stop 04/21/19 at 06:59; Status DC Fentanyl Citrate (Fentanyl 2ml Vial) 50 mcg PRN Q5MIN PRN IV MODERATE TO SEVERE PAIN; Start 04/20/19 at 07:00; Stop 04/21/19 at 06:59; Status DC Morphine Sulfate (Morphine Sulfate) 1 mg PRN Q10MIN PRN IV SEVERE PAIN 7-10; Start 04/20/19 at 07:00; Stop 04/21/19 at 06:59; Status DC Ringer's Solution 1,000 ml @ 30 mls/hr Q24H IV Last administered on 04/20/19at 10:37; Start 04/20/19 at 07:00; Stop 04/20/19 at 18:59; Status DC Lidocaine HCl (Xylocaine-Mpf 1% 2ml Vial) 2 ml PRN 1X PRN ID PRIOR TO IV START; Start 04/20/19 at 07:00; Stop 04/21/19 at 06:59; Status DC Hydromorphone HCl (Dilaudid) 0.5 mg PRN Q10MIN PRN IV SEV PAIN, Second choice; Start 04/20/19 at 07:00; Stop 04/21/19 at 06:59; Status DC Prochlorperazine Edisylate (Compazine) 5 mg PACU PRN PRN IV NAUSEA, MRX1; Start 04/20/19 at 07:00; Stop 04/21/19 at 06:59; Status DC Bupivacaine HCl/ Epinephrine Bitart (Sensorcaine-Epi 0.25%-1:190322 Mpf) 30 ml 1X ONCE INJ ; Start 04/20/19 at 10:30; Stop 04/20/19 at 10:31; Status DC Sevoflurane (Ultane) 15 ml STK-MED ONCE IH ; Start 04/20/19 at 10:29; Stop 04/20/19 at 19:53; Status DC Fentanyl Citrate (Fentanyl 2ml Vial) 100 mcg STK-MED ONCE .ROUTE ; Start 04/20/19 at 10:29; Stop 04/20/19 at 19:53; Status DC Propofol 0 ml @ As Directed STK-MED ONCE IV ; Start 04/20/19 at 10:29; Stop 04/20/19 at 19:53; Status DC Lidocaine HCl (Lidocaine Pf 2% Vial) 5 ml STK-MED ONCE .ROUTE ; Start 04/20/19 at 10:29; Stop 04/20/19 at 19:53; Status DC Dexamethasone Sodium Phosphate (Decadron) 4 mg STK-MED ONCE .ROUTE ; Start 04/20/19 at 10:30; Stop 04/20/19 at 19:53; Status DC Ondansetron HCl (Zofran) 4 mg STK-MED ONCE .ROUTE ; Start 04/20/19 at 10:30; Stop 04/20/19 at 19:53; Status DC Phenylephrine HCl (PHENYLEPHRINE in 0.9% NACL PF) 1 mg STK-MED ONCE IV ; Start 04/20/19 at 10:30; Stop 04/20/19 at 19:53; Status DC Sevoflurane (Ultane) 60 ml STK-MED ONCE IH ; Start 04/20/19 at 10:37; Stop 04/20/19 at 19:53; Status DC Fentanyl Citrate (Fentanyl 2ml Vial) 100 mcg STK-MED ONCE .ROUTE ; Start 04/20/19 at 10:37; Stop 04/20/19 at 19:53; Status DC Propofol 20 ml @ As Directed STK-MED ONCE IV ; Start 04/20/19 at 10:38; Stop 04/20/19 at 19:53; Status DC Lidocaine HCl (Lidocaine Pf 2% Vial) 5 ml STK-MED ONCE .ROUTE ; Start 04/20/19 at 10:38; Stop 04/20/19 at 19:53; Status DC Ondansetron HCl (Zofran) 4 mg STK-MED ONCE .ROUTE ; Start 04/20/19 at 10:38; Stop 04/20/19 at 19:53; Status DC Dexamethasone Sodium Phosphate (Decadron) 4 mg STK-MED ONCE .ROUTE ; Start 04/20/19 at 10:38; Stop 04/20/19 at 19:53; Status DC Glycopyrrolate (Robinul) 1 mg STK-MED ONCE .ROUTE ; Start 04/20/19 at 11:10; Stop 04/20/19 at 19:53; Status DC Ephedrine Sulfate (ePHEDrine PF IN SALINE SYRINGE) 50 mg STK-MED ONCE IV ; Start 04/20/19 at 11:16; Stop 04/20/19 at 19:53; Status DC Fentanyl Citrate (Fentanyl 2ml Vial) 100 mcg STK-MED ONCE .ROUTE ; Start 04/20/19 at 12:16; Stop 04/20/19 at 19:53; Status DC Albuterol Sulfate (Ventolin Neb Soln) 2.5 mg PRN QID PRN NEB SHORTNESS OF BREATH; Start 04/21/19 at 08:00 Active Scripts Active Reported Atenolol 50 Mg Tablet 1 Tab PO BID Vitals/I & O Vital Sign - Last 24 Hours 04/20/19 04/20/19 04/20/19 04/20/19 11:00 12:03 12:03 12:21 Temp 97.9 97.3 97.9 97.3 Pulse 50 55 56 Resp 20 17 16 B/P (MAP) 143/66 96/55 102/51 Pulse Ox 97 98 O2 Delivery Room Air Simple Mask Nasal Cannula Nasal Cannula O2 Flow Rate 10 2 2 04/20/19 04/20/19 04/20/19 04/20/19 12:31 12:36 13:21 15:00 Temp 98.2 98.2 Pulse 54 52 Resp 15 20 B/P (MAP) 117/49 129/63 (85) Pulse Ox 96 92 O2 Delivery Nasal Cannula Nasal Cannula Nasal Cannula Nasal Cannula O2 Flow Rate 2 2 3.0 2.0 04/20/19 04/20/19 04/20/19 04/20/19 15:49 17:38 19:00 20:00 Temp 97.4 97.4 Pulse 61 Resp 18 B/P (MAP) 124/55 (78) Pulse Ox 92 O2 Delivery Nasal Cannula Nasal Cannula Nasal Cannula Nasal Cannula O2 Flow Rate 3.0 3.0 2.0 3.0 04/20/19 04/20/19 04/20/19 04/20/19 20:34 20:35 21:35 22:16 Pulse 52 Resp 18 18 B/P (MAP) 129/63 O2 Delivery Room Air Room Air Room Air O2 Flow Rate 3.0 04/20/19 04/20/19 04/21/19 04/21/19 22:46 23:00 01:14 01:44 Temp 98.1 98.1 Pulse 55 Resp 18 18 19 18 B/P (MAP) 125/54 (77) Pulse Ox 94 O2 Delivery Room Air Nasal Cannula Room Air Room Air O2 Flow Rate 2.0 04/21/19 04/21/19 04/21/19 04/21/19 03:00 04:50 05:20 06:17 Temp 97.4 97.4 Pulse 52 Resp 18 22 20 22 B/P (MAP) 120/57 (78) Pulse Ox 94 O2 Delivery Nasal Cannula Nasal Cannula Nasal Cannula Nasal Cannula O2 Flow Rate 2.0 3.0 3.0 3.0 04/21/19 04/21/19 04/21/19 07:00 07:32 08:47 Temp 97.7 97.7 Pulse 51 51 Resp 16 B/P (MAP) 130/61 (84) 130/61 Pulse Ox 98 O2 Delivery Nasal Cannula Nasal Cannula O2 Flow Rate 5.0 3.0 Intake and Output 04/20/19 04/20/19 04/21/19 15:00 23:00 07:00 Intake Total 200 ml 300 ml Output Total 985 ml 1000 ml 900 ml Balance -785 ml -700 ml -900 ml TAYLOR CORDOVA MD Apr 21, 2019 09:29
[2019-04-21] MEDS ORDERED: FUROSEMIDE 20 MG/2 ML VIAL. IVP ONE (09:30)
[2019-04-21 11:00] VITALS: BP 117/58
--- NOTE | 2019-04-21 12:51 | PDOC ---
Infectious Disease Note Subjective Subjective Wound vac off due to bleeding Pain controlled O2 2L Denies F/C/S/N/V/D/SOA ROS ROS per HPI Vital Sign Vital Signs Vital Signs Date Time Temp Pulse Resp B/P (MAP) Pulse Ox O2 Delivery O2 Flow Rate FiO2 04/21/19 11:43 Room Air 3.0 04/21/19 11:00 97.9 52 16 117/58 (77) 96 97.9 Physical Exam PHYSICAL EXAM GENERAL: Propped up in bed, alert, eating HEENT: Oral cavity, pharynx is clear. NECK: Supple LUNGS: Clear to auscultation bilaterally HEART: S1, S2. ABDOMEN: Morbidly obese, soft, nontender EXTREMITIES: Right 3rd toe and left foot bandaged, dry SKIN: warm to touch NEUROLOGIC: Alert, nonfocal. [facility] clean Labs Lab Laboratory Tests Test 04/20/19 13:41 04/20/19 17:32 04/20/19 21:01 04/21/19 07:05 Glucose (Fingerstick) 149 mg/dL (70-99) 285 mg/dL (70-99) 274 mg/dL (70-99) 224 mg/dL (70-99) Test 04/21/19 07:35 04/21/19 11:47 White Blood Count 10.6 x10^3/uL (4.0-11.0) Red Blood Count 4.09 x10^6/uL (3.50-5.40) Hemoglobin 11.9 g/dL (12.0-15.5) Hematocrit 35.9 % (36.0-47.0) Mean Corpuscular Volume 88 fL (79-100) Mean Corpuscular Hemoglobin 29 pg (25-35) Mean Corpuscular Hemoglobin Concent 33 g/dL (31-37) Red Cell Distribution Width 16.4 % (11.5-14.5) Platelet Count 269 x10^3/uL (140-400) Neutrophils (%) (Auto) 82 % (31-73) Lymphocytes (%) (Auto) 13 % (24-48) Monocytes (%) (Auto) 4 % (0-9) Eosinophils (%) (Auto) 0 % (0-3) Basophils (%) (Auto) 1 % (0-3) Neutrophils # (Auto) 8.7 x10^3/uL (1.8-7.7) Lymphocytes # (Auto) 1.3 x10^3/uL (1.0-4.8) Monocytes # (Auto) 0.4 x10^3/uL (0.0-1.1) Eosinophils # (Auto) 0.0 x10^3/uL (0.0-0.7) Basophils # (Auto) 0.1 x10^3/uL (0.0-0.2) Sodium Level 140 mmol/L (136-145) Potassium Level 5.5 mmol/L (3.5-5.1) Chloride Level 100 mmol/L (98-107) Carbon Dioxide Level 36 mmol/L (21-32) Anion Gap 4 (6-14) Blood Urea Nitrogen 30 mg/dL (7-20) Creatinine 0.8 mg/dL (0.6-1.0) Estimated GFR (Cockcroft-Gault) 73.7 Glucose Level 211 mg/dL (70-99) Calcium Level 8.9 mg/dL (8.5-10.1) Glucose (Fingerstick) 268 mg/dL (70-99) Micro Objective Assessment 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 s/p amputation, 04/10, then partial excision MT and excisional debridement surrounding necrotic tissue, 04/14 then I and D below fascia w/ tendon involvement on 04/20. cultures no growth ALISIA Cephalexin allergy -swelling and throat closing Leukocytosis - now s/p steroids prior to surgery, improved Yeast skin Dm Right plantar wound s/p debridement devitalized dermis, 04/14 Plan Plan of Care Meropenem and fluconazole ,,, Monitor for abx toxicities/side effects Probiotics Cultures neg so far Wound care as directed Patient seen and examined. Chart reviewed in detail. Case discussed with HARVEST WORKER. Agree with above plan. BRISA LUCIA APRN Apr 21, 2019 12:51 TRINITY BAINS MD Apr 21, 2019 19:34
[2019-04-21] MEDS: FLUCONAZOLE 200MG/100ML PREMIX 100 ML IV SCH (13:17)
[2019-04-21 15:00] VITALS: BP 135/46
[2019-04-21 19:00] VITALS: BP 136/51
--- NOTE | 2019-04-21 20:16 | NUR ---
Pt. was wondering why she was taking 2 doses of lantus every day. Pharmacy was called about similarities between treciba and lantus and stated they are identical. Pharmacy also stated pt. was taking 100 units total daily because of her high blood sugars throughout her stay. Dr. Grijalva was paged to see if we could condense her lantus down to 70 units (which is the dose of treciba she takes at home) and he stated to go ahead and change it. 30 units of lantus was stopped so patient will only take 70 units of lantus at night. We will continue to monitor her blood sugar.
[2019-04-21] MEDS: ASPIRIN ENTERIC COATED 325 MG TABLET.DR. PO SCH (21:00)
[2019-04-21] MEDS: GABAPENTIN 400 MG CAPSULE. PO SCH (21:34)
[2019-04-21] MEDS: ATORVASTATIN CALCIUM 20 MG TABLET PO SCH (21:34)
[2019-04-21 23:00] VITALS: BP 113/48
[2019-04-22 03:05] VITALS: BP 122/53
[2019-04-22] MEDS: HYDROcodone/APAP 5/325MG 1 TAB TABLET PO PRN ×3 (04:22→20:29)
[2019-04-22] MEDS: MEROPENEM 1 GM in IV NORMAL SALINE 100ML 100 ML IV SCH ×3 (05:28→22:22)
[2019-04-22 07:00] VITALS: BP 140/47
[2019-04-22] MEDS: INSULIN LISPRO 300 UNITS/3 ML VIAL. SQ SCH ×6 (08:00→17:45)
[2019-04-22] MEDS: LACTOBACILLUS RHAMNOSUS GG 1 CAPSULE. PO SCH ×2 (08:32→20:26)
[2019-04-22] MEDS: GABAPENTIN 300 MG CAPSULE. PO SCH ×2 (08:32→13:11)
[2019-04-22] MEDS: FUROSEMIDE 40 MG TABLET. PO SCH (08:32)
[2019-04-22] MEDS: ATENOLOL 50 MG TABLET. PO SCH (08:33)
--- NOTE | 2019-04-22 10:07 | PDOC ---
Infectious Disease Note Subjective Subjective Comfortable + BM yesterday O2 2L Denies F/C/S/N/V/D/SOA ROS ROS per HPI Vital Sign Vital Signs Vital Signs Date Time Temp Pulse Resp B/P (MAP) Pulse Ox O2 Delivery O2 Flow Rate FiO2 04/22/19 08:33 46 140/47 04/22/19 07:00 98.2 16 91 Room Air 98.2 04/21/19 21:37 3.0 Physical Exam PHYSICAL EXAM GENERAL: Propped up in bed, resting quietly, arouses to name, NAD HEENT: Oral cavity, pharynx is clear. NECK: Supple LUNGS: Clear to auscultation bilaterally HEART: S1, S2. ABDOMEN: Morbidly obese, soft, nontender EXTREMITIES: Right 3rd toe and left foot bandaged, dry SKIN: warm to touch NEUROLOGIC: Alert, nonfocal. [facility]- [facility] clean Labs Lab Laboratory Tests Test 04/21/19 11:47 04/21/19 16:49 04/21/19 20:30 04/22/19 07:28 Glucose (Fingerstick) 268 mg/dL (70-99) 154 mg/dL (70-99) 150 mg/dL (70-99) 83 mg/dL (70-99) Micro 04/20. ANAEROBIC-AEROBIC CULTURE PENDING ANAEROBIC RES 1 PENDING AEROBIC CULT PENDING AEROBIC RES 1 PENDING GRAM STAIN Final Final report GRAM STAIN RES 1 Final Comment No white blood cells seen. 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 s/p amputation, 04/10, then partial excision MT and excisional debridement surro unding necrotic tissue, 04/14 then I and D below fascia w/ tendon involvement on 04/20. cultures no growth ALISIA - better Cephalexin allergy -swelling and throat closing Leukocytosis - now s/p steroids prior to surgery, improved Yeast skin Dm Right plantar wound s/p debridement devitalized dermis, 04/14 Plan Plan of Care Meropenem and fluconazole ,,, Monitor for abx toxicities/side effects Probiotics Cultures neg so far Wound care as directed Patient seen and examined. Chart reviewed in detail. Case discussed with MAINTENANCE SERVICES DISPATCHER. Agree with above plan. BRISA LUCIA APRN Apr 22, 2019 10:07 TRINITY BAINS MD Apr 22, 2019 20:31
[2019-04-22 11:00] VITALS: BP 118/49
[2019-04-22 11:08] LABS: CALCIUM 9.2 mg/dL (8.5-10.1); CREATININE 0.7 mg/dL (0.6-1.0); GFR 85.9; POTASSIUM 4.8 mmol/L (3.5-5.1)
--- NOTE | 2019-04-22 12:03 | PDOC ---
PROGRESS NOTES Chief Complaint Chief Complaint 1. LEft THIRD TOE Gangrene -s/p amputation 04/10 (POD # ) 2. RT heel ulcer - wound care 3. NOnosteo 3rd toe digit s/p clean ray amputation 4. DM with hgba1c 9.7 and neuropathy and target organ damage - hx osteo, partial amputation big toe 5. Obesity, morbid BMI 53 6. HTN - controlled 7,. Lymphedema 8. POst op confusion, transient 9, POst op mild hyperkalemia 5.5 10. Post op ALISIA, VMN 11. diastolic CHF echo 55% 12. Left rotator cuff calcific tendinopathy. 13. severe protein-caloric malnutrition 14 PULMONARY HYPERTENSION PA pressure 50 15. 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 now getting 70 qhs instead of the split 30 q AM WOF FOR HYPOGLYCMEIA IN MORNING WITH TOO HEAVY A DOSE AT NIGHT (70 units qhs)- (that's why her dose was split - RN note I have reviewed) BS this AM is 90 EARLIER ENTRY Long discussion with her about losing weight, HELPING Herself turn q2 and HELPING herself do the bed pain herself - she had lots of complaints/issues earlier on about her care - seems to not be a highlight of her stay anymore TUESDAY: K 5.,5 - extra lasix 20 IVP now PLAN: IV merrem, IV invanz as OP x 2 weeks at [facility] near [place] WOF for morning hypoglycemia since insulin was inc to all 70 qhs - IF MORNING HYPOGLY happens, will need to split the 70units or have an evening snack COnt PO lasix - s/p lasix IV CHF on CXR and clinically, doing better- stable interval XR with mnormal EF on echo Dc with OP IV abx at [facility] when that has been finalized and with wound vac arrangements (wound was bleeding tuesday so wound vac had to be taken out) Vitals Vitals Vital Signs Date Time Temp Pulse Resp B/P (MAP) Pulse Ox O2 Delivery O2 Flow Rate FiO2 04/22/19 08:33 46 140/47 04/22/19 08:00 Nasal Cannula 3.0 04/22/19 07:00 98.2 16 91 98.2 Physical Exam Physical Exam GENERAL: Propped up in bed, resting quietly, arouses to name, NAD HEENT: Oral cavity, pharynx is clear. NECK: Supple LUNGS: Clear to auscultation bilaterally HEART: S1, S2. ABDOMEN: Morbidly obese, soft, nontender EXTREMITIES: Right 3rd toe and left foot bandaged, dry SKIN: warm to touch NEUROLOGIC: Alert, nonfocal. RUE- PICC clean General: Alert, Oriented X3, Cooperative, No acute distress Heart: Regular rate, Normal S1, Normal S2, No murmurs Lungs: Clear Abdomen: Normal bowel sounds, Soft, No tenderness Extremities: No clubbing, No cyanosis, Other (left leg dressing, rt leg dressing, amputated toe wound vac PLANTAR ASPECT SWOLLEN) Skin: Other (left foot wound with wound vac and right foot wound) Labs LABS Laboratory Tests Test 04/21/19 16:49 04/21/19 20:30 04/22/19 07:28 04/22/19 10:45 Glucose (Fingerstick) 154 mg/dL (70-99) 150 mg/dL (70-99) 83 mg/dL (70-99) Sodium Level 139 mmol/L (136-145) Potassium Level 4.8 mmol/L (3.5-5.1) Chloride Level 100 mmol/L (98-107) Carbon Dioxide Level 39 mmol/L (21-32) Anion Gap 0 (6-14) Blood Urea Nitrogen 36 mg/dL (7-20) Creatinine 0.7 mg/dL (0.6-1.0) Estimated GFR (Cockcroft-Gault) 85.9 Glucose Level 99 mg/dL (70-99) Calcium Level 9.2 mg/dL (8.5-10.1) Test 04/22/19 11:02 Glucose (Fingerstick) 83 mg/dL (70-99) Review of Systems Review of Systems asleep i did not awaken Comment Review of Relevant I have reviewed the following items adrienne (where applicable) has been applied. Labs Laboratory Tests Test 04/20/19 12:10 04/20/19 13:41 9/27/19 17:32 04/20/19 21:01 Glucose (Fingerstick) 109 mg/dL (70-99) 149 mg/dL (70-99) 285 mg/dL (70-99) 274 mg/dL (70-99) Test 04/21/19 07:05 04/21/19 07:35 04/21/19 11:47 04/21/19 16:49 Glucose (Fingerstick) 224 mg/dL (70-99) 268 mg/dL (70-99) 154 mg/dL (70-99) White Blood Count 10.6 x10^3/uL (4.0-11.0) Red Blood Count 4.09 x10^6/uL (3.50-5.40) Hemoglobin 11.9 g/dL (12.0-15.5) Hematocrit 35.9 % (36.0-47.0) Mean Corpuscular Volume 88 fL (79-100) Mean Corpuscular Hemoglobin 29 pg (25-35) Mean Corpuscular Hemoglobin Concent 33 g/dL (31-37) Red Cell Distribution Width 16.4 % (11.5-14.5) Platelet Count 269 x10^3/uL (140-400) Neutrophils (%) (Auto) 82 % (31-73) Lymphocytes (%) (Auto) 13 % (24-48) Monocytes (%) (Auto) 4 % (0-9) Eosinophils (%) (Auto) 0 % (0-3) Basophils (%) (Auto) 1 % (0-3) Neutrophils # (Auto) 8.7 x10^3/uL (1.8-7.7) Lymphocytes # (Auto) 1.3 x10^3/uL (1.0-4.8) Monocytes # (Auto) 0.4 x10^3/uL (0.0-1.1) Eosinophils # (Auto) 0.0 x10^3/uL (0.0-0.7) Basophils # (Auto) 0.1 x10^3/uL (0.0-0.2) Sodium Level 140 mmol/L (136-145) Potassium Level 5.5 mmol/L (3.5-5.1) Chloride Level 100 mmol/L (98-107) Carbon Dioxide Level 36 mmol/L (21-32) Anion Gap 4 (6-14) Blood Urea Nitrogen 30 mg/dL (7-20) Creatinine 0.8 mg/dL (0.6-1.0) Estimated GFR (Cockcroft-Gault) 73.7 Glucose Level 211 mg/dL (70-99) Calcium Level 8.9 mg/dL (8.5-10.1) Test 04/21/19 20:30 04/22/19 07:28 04/22/19 10:45 04/22/19 11:02 Glucose (Fingerstick) 150 mg/dL (70-99) 83 mg/dL (70-99) 83 mg/dL (70-99) Sodium Level 139 mmol/L (136-145) Potassium Level 4.8 mmol/L (3.5-5.1) Chloride Level 100 mmol/L (98-107) Carbon Dioxide Level 39 mmol/L (21-32) Anion Gap 0 (6-14) Blood Urea Nitrogen 36 mg/dL (7-20) Creatinine 0.7 mg/dL (0.6-1.0) Estimated GFR (Cockcroft-Gault) 85.9 Glucose Level 99 mg/dL (70-99) Calcium Level 9.2 mg/dL (8.5-10.1) Laboratory Tests Test 04/21/19 16:49 04/21/19 20:30 04/22/19 07:28 04/22/19 10:45 Glucose (Fingerstick) 154 mg/dL (70-99) 150 mg/dL (70-99) 83 mg/dL (70-99) Sodium Level 139 mmol/L (136-145) Potassium Level 4.8 mmol/L (3.5-5.1) Chloride Level 100 mmol/L (98-107) Carbon Dioxide Level 39 mmol/L (21-32) Anion Gap 0 (6-14) Blood Urea Nitrogen 36 mg/dL (7-20) Creatinine 0.7 mg/dL (0.6-1.0) Estimated GFR (Cockcroft-Gault) 85.9 Glucose Level 99 mg/dL (70-99) Calcium Level 9.2 mg/dL (8.5-10.1) Test 04/22/19 11:02 Glucose (Fingerstick) 83 mg/dL (70-99) Microbiology 04/20/19 Anaerobic/Aerobic Culture, Resulted Pending 04/20/19 Anaerobic Culture Result 1 (DEANNE), Resulted Pending 04/20/19 Aerobic Culture, Resulted Pending 04/20/19 Aerobic Culture Result 1 (DEANNE), Resulted Pending 04/20/19 Gram Stain - Final, Resulted 04/20/19 Gram Stain Result 1 (DEANNE) - Final, Resulted 04/20/19 Gram Stain Result 2 (DEANNE) - Final, Resulted 04/10/19 Blood Culture - Final, Complete NO GROWTH AFTER 5 DAYS Medications Current Medications Vancomycin HCl (Vanco Per Pharmacy) 1 each PRN DAILY PRN MC SEE COMMENTS Last administered on 04/10/19at 03:41; Start 04/09/19 at 22:30; Stop 04/10/19 at 12:36; Status DC Piperacillin Sod/ Tazobactam Sod (Zosyn Per Pharmacy) 1 each PRN DAILY PRN MC SEE COMMENTS; Start 04/09/19 at 22:30; Stop 04/10/19 at 12:35; Status DC Sodium Chloride 1,000 ml @ 100 mls/hr Q10H IV Last administered on 04/11/19at 05:23; Start 04/09/19 at 23:00; Stop 04/11/19 at 09:26; Status DC Acetaminophen/ Hydrocodone Bitart (Lortab 5/325) 1 tab PRN Q4HRS PRN PO MODERATE PAIN 4-6 Last administered on 04/20/19at 13:21; Start 04/09/19 at 22:30 Acetaminophen/ Hydrocodone Bitart (Lortab 5/325) 2 tab PRN Q4HRS PRN PO SEVERE PAIN 7-10 Last administered on 04/22/19at 04:22; Start 04/09/19 at 22:30 Insulin Glargine (Lantus Syringe) 70 unit QHS SQ Last administered on 04/21/19at 21:00; Start 04/09/19 at 23:00 Insulin Human Lispro (HumaLOG) 20 units 1X ONCE SQ Last administered on 04/09/19at 23:02; Start 04/09/19 at 23:00; Stop 04/09/19 at 23:01; Status DC Insulin Human Lispro (HumaLOG) 0-7 UNITS TIDWMEALS SQ ; Start 04/10/19 at 08:00; Stop 04/10/19 at 08:08; Status DC Dextrose (Dextrose 50%-Water Syringe) 12.5 gm PRN Q15MIN PRN IV SEE COMMENTS; Start 04/09/19 at 22:30; Status Cancel Dextrose 250 ml PRN Q15MIN PRN IV SEE COMMENTS; Start 04/09/19 at 22:30; Status Cancel Insulin Human Lispro (HumaLOG) 26 units TIDAC SQ Last administered on 04/22/19at 08:44; Start 04/10/19 at 07:30 Piperacillin Sod/ Tazobactam Sod 3.375 gm/Sodium Chloride 50 ml @ 100 mls/hr Q6HRS IV Last administered on 04/10/19at 11:35; Start 04/10/19 at 00:00; Stop 04/10/19 at 12:35; Status DC Gabapentin (Neurontin) 900 mg BID92 PO Last administered on 04/22/19at 08:32; Start 04/10/19 at 09:00 Gabapentin (Neurontin) 1,200 mg HS PO Last administered on 04/21/19at 21:34; Start 04/10/19 at 21:00 Atenolol (Tenormin) 40 mg DAILY PO ; Start 04/10/19 at 09:00; Status UNV Vancomycin HCl 2 gm/Sodium Chloride 500 ml @ 250 mls/hr Q12H IV Last administered on 04/10/19at 05:20; Start 04/10/19 at 05:00; Stop 04/10/19 at 12:36; Status DC Vancomycin HCl (Vancomycin Trough Level) 1 each 1X ONCE MC ; Start 04/11/19 at 04:30; Stop 04/11/19 at 04:31; Status Cancel Insulin Human Lispro (HumaLOG) 0-9 UNITS TIDWMEALS SQ Last administered on 04/21/19at 17:31; Start 04/10/19 at 12:00 Dextrose (Dextrose 50%-Water Syringe) 12.5 gm PRN Q15MIN PRN IV SEE COMMENTS; Start 04/10/19 at 08:15 Dextrose 250 ml PRN Q15MIN PRN IV SEE COMMENTS; Start 04/10/19 at 08:15 Acetaminophen (Tylenol) 500 mg PRN Q6HRS PRN PO MILD PAIN / TEMP Last administered on 04/12/19at 13:04; Start 04/10/19 at 08:15 Ondansetron HCl (Zofran) 4 mg PRN Q6HRS PRN IV NAUSEA/VOMITING Last administered on 04/13/19at 12:24; Start 04/10/19 at 08:15 Fentanyl Citrate (Fentanyl 2ml Vial) 50 mcg PRN Q2HR PRN IV PAIN Last administered on 04/21/19at 17:57; Start 04/10/19 at 08:15 Sodium Chloride ([place] Saline Nasal) 1 nadeem PRN Q2HRS PRN NS NASAL CONGESTION Last administered on 04/10/19at 15:54; Start 04/10/19 at 11:45 Fluconazole/ Sodium Chloride 100 ml @ 100 mls/hr Q24H IV Last administered on 04/21/19at 13:17; Start 04/10/19 at 13:00 Meropenem 1 gm/ Sodium Chloride 100 ml @ 200 mls/hr Q8HRS IV Last administered on 04/22/19at 05:28; Start 04/10/19 at 14:00 Daptomycin 900 mg/ Sodium Chloride 50 ml @ 100 mls/hr Q24H IV Last administered on 04/16/19at 12:24; Start 04/10/19 at 13:00; Stop 04/17/19 at 10:05; Status DC Fentanyl Citrate (Fentanyl 2ml Vial) 25 mcg PRN Q5MIN PRN IV MILD PAIN 1-3; Start 04/10/19 at 13:15; Stop 04/11/19 at 11:49; Status DC Fentanyl Citrate (Fentanyl 2ml Vial) 50 mcg PRN Q5MIN PRN IV MODERATE TO SEVERE PAIN; Start 04/10/19 at 13:15; Stop 04/11/19 at 11:49; Status DC Morphine Sulfate (Morphine Sulfate) 1 mg PRN Q10MIN PRN IV SEVERE PAIN 7-10; Start 04/10/19 at 13:15; Stop 04/11/19 at 11:50; Status DC Ringer's Solution 1,000 ml @ 30 mls/hr Q24H IV ; Start 04/10/19 at 13:14; Stop 04/11/19 at 01:13; Status DC Hydromorphone HCl (Dilaudid) 0.5 mg PRN Q10MIN PRN IV SEV PAIN, Second choice; Start 04/10/19 at 13:15; Stop 04/11/19 at 11:50; Status DC Prochlorperazine Edisylate (Compazine) 5 mg PACU PRN PRN IV NAUSEA, MRX1; Start 04/10/19 at 13:15; Stop 04/11/19 at 11:50; Status DC Fentanyl Citrate (Fentanyl 2ml Vial) 100 mcg STK-MED ONCE .ROUTE ; Start 04/10/19 at 13:20; Stop 04/10/19 at 13:21; Status DC Sevoflurane (Ultane) 30 ml STK-MED ONCE IH ; Start 04/10/19 at 13:20; Stop 04/10/19 at 13:21; Status DC Propofol 20 ml @ As Directed STK-MED ONCE IV ; Start 04/10/19 at 13:20; Stop 04/10/19 at 13:21; Status DC Dexamethasone Sodium Phosphate (Decadron) 4 mg STK-MED ONCE .ROUTE ; Start 04/10/19 at 13:21; Stop 04/10/19 at 13:21; Status DC Lidocaine HCl (Lidocaine Pf 2% Vial) 5 ml STK-MED ONCE .ROUTE ; Start 04/10/19 at 13:21; Stop 04/10/19 at 13:21; Status DC Ondansetron HCl (Zofran) 4 mg STK-MED ONCE .ROUTE ; Start 04/10/19 at 13:21; Stop 04/10/19 at 13:21; Status DC Phenylephrine HCl (PHENYLEPHRINE in 0.9% NACL PF) 1 mg STK-MED ONCE IV ; Start 04/10/19 at 14:27; Stop 04/10/19 at 14:27; Status DC Aspirin (Ecotrin) 325 mg QHS PO Last administered on 04/20/19at 20:31; Start 04/10/19 at 21:00 Oxycodone/ Acetaminophen (Percocet 5/325) 1 tab PRN Q4HRS PRN PO MODERATE PAIN, LAST OPTION Last administered on 04/14/19at 15:41; Start 04/10/19 at 15:15; Stop 04/15/19 at 16:17; Status DC Oxycodone/ Acetaminophen (Percocet 5/325) 2 tab PRN Q4HRS PRN PO SEVERE PAIN, LAST OPTION Last administered on 04/14/19at 20:33; Start 04/10/19 at 15:30; Stop 04/15/19 at 16:17; Status DC Insulin Glargine (Lantus Syringe) 30 unit DAILY SQ Last administered on 04/21/19 08:53; Start 04/11/19 at 09:00; Stop 04/21/19 at 20:11; Status DC Sodium Polystyrene Sulfonate (Kayexalate) 15 gm 1X ONCE PO Last administered on 04/11/19at 10:24; Start 04/11/19 at 09:00; Stop 04/11/19 at 09:01; Status DC Meclizine HCl (Antivert) 12.5 mg PRN Q6HRS PRN PO DIZZINESS Last administered on 04/11/19at 10:24; Start 04/11/19 at 09:30 Albuterol Sulfate (Ventolin Neb Soln) 2.5 mg PRN Q4HRS PRN NEB SHORTNESS OF BREATH Last administered on 04/14/19at 15:30; Start 04/11/19 at 10:45; Stop 04/14/19 at 15:46; Status DC Albuterol Sulfate (Ventolin Neb Soln) 2.5 mg 1X ONCE NEB Last administered on 04/11/19at 11:54; Start 04/11/19 at 11:00; Stop 04/11/19 at 11:01; Status DC Lactobacillus Rhamnosus (Culturelle) 1 cap BID PO Last administered on 04/22/19 08:32; Start 04/11/19 at 12:00 Furosemide (Lasix) 40 mg 1X ONCE IVP Last administered on 04/11/19at 20:18; Start 04/11/19 at 19:00; Stop 04/11/19 at 19:01; Status DC Perflutren Protein Type A Microsphe (Optison) 0.66 mg 1X ONCE IV ; Start 04/12/19 at 10:00; Stop 04/12/19 at 10:01; Status DC Furosemide (Lasix) 40 mg 1X ONCE IVP Last administered on 04/12/19at 11:44; Start 04/12/19 at 10:45; Stop 04/12/19 at 10:49; Status DC Atenolol (Tenormin) 50 mg BID PO Last administered on 04/22/19 08:33; Start 04/13/19 at 14:00; Stop 04/22/19 at 08:54; Status DC Morphine Sulfate (Morphine Sulfate) 1 mg PRN Q10MIN PRN IV SEVERE PAIN 7-10; Start 04/14/19 at 07:00; Stop 04/15/19 at 06:59; Status DC Ringer's Solution 1,000 ml @ 30 mls/hr Q24H IV ; Start 04/14/19 at 07:00; Stop 04/14/19 at 18:59; Status DC Hydromorphone HCl (Dilaudid) 0.5 mg PRN Q10MIN PRN IV SEV PAIN, Second choice; Start 04/14/19 at 07:00; Stop 04/15/19 at 06:59; Status DC Prochlorperazine Edisylate (Compazine) 5 mg PACU PRN PRN IV NAUSEA, MRX1; Start 04/14/19 at 07:00; Stop 04/15/19 at 06:59; Status DC Furosemide (Lasix) 40 mg 1X ONCE IVP Last administered on 04/13/19at 17:35; Start 04/13/19 at 17:00; Stop 04/13/19 at 17:01; Status DC Furosemide (Lasix) 40 mg DAILY PO Last administered on 04/22/19at 08:32; Start 04/14/19 at 09:00 Atorvastatin Calcium (Lipitor) 20 mg QHS PO Last administered on 04/21/19at 21:34; Start 04/13/19 at 21:00 Insulin Human Lispro (HumaLOG) 3 units 1X ONCE SQ Last administered on 04/13/19at 20:44; Start 04/13/19 at 21:00; Stop 04/13/19 at 21:01; Status DC Propofol 20 ml @ As Directed STK-MED ONCE IV ; Start 04/14/19 at 07:35; Stop 04/14/19 at 07:36; Status DC Dexamethasone Sodium Phosphate (Decadron) 4 mg STK-MED ONCE .ROUTE ; Start 04/14/19 at 07:35; Stop 04/14/19 at 07:36; Status DC Lidocaine HCl (Lidocaine Pf 2% Vial) 5 ml STK-MED ONCE .ROUTE ; Start 04/14/19 at 07:35; Stop 04/14/19 at 07:36; Status DC Ondansetron HCl (Zofran) 4 mg STK-MED ONCE .ROUTE ; Start 04/14/19 at 07:35; Stop 04/14/19 at 07:36; Status DC Sevoflurane (Ultane) 60 ml STK-MED ONCE IH ; Start 04/14/19 at 07:36; Stop 04/14/19 at 07:36; Status DC Sevoflurane (Ultane) 15 ml STK-MED ONCE IH ; Start 04/14/19 at 09:22; Stop 04/14/19 at 09:23; Status DC Morphine Sulfate (Morphine Sulfate) 1 mg PRN Q10MIN PRN IV SEVERE PAIN 7-10; Start 04/14/19 at 09:45; Stop 04/14/19 at 20:00; Status DC Ringer's Solution 1,000 ml @ 30 mls/hr Q24H IV ; Start 04/14/19 at 09:32; Stop 04/14/19 at 21:31; Status DC Hydromorphone HCl (Dilaudid) 0.5 mg PRN Q10MIN PRN IV SEV PAIN, Second choice Last administered on 04/14/19at 10:06; Start 04/14/19 at 09:45; Stop 04/14/19 at 20:00; Status DC Prochlorperazine Edisylate (Compazine) 5 mg PACU PRN PRN IV NAUSEA, MRX1; Start 04/14/19 at 09:45; Stop 04/14/19 at 20:00; Status DC Fentanyl Citrate (Fentanyl 2ml Vial) 100 mcg STK-MED ONCE .ROUTE ; Start 04/14/19 at 09:33; Stop 04/14/19 at 09:33; Status DC Albuterol Sulfate (Ventolin Neb Soln) 2.5 mg RTQID NEB Last administered on 04/18/19at 07:20; Start 04/14/19 at 15:45; Stop 04/20/19 at 23:47; Status DC Morphine Sulfate (Morphine Sulfate) 1 mg PRN Q10MIN PRN IV SEVERE PAIN 7-10; Start 04/17/19 at 07:00; Stop 04/18/19 at 06:59; Status DC Ringer's Solution 1,000 ml @ 30 mls/hr Q24H IV ; Start 04/17/19 at 07:00; Stop 04/17/19 at 18:59; Status DC Lidocaine HCl (Xylocaine-Mpf 1% 2ml Vial) 2 ml PRN 1X PRN ID PRIOR TO IV START; Start 04/17/19 at 07:00; Stop 04/18/19 at 06:59; Status DC Hydromorphone HCl (Dilaudid) 0.5 mg PRN Q10MIN PRN IV SEV PAIN, Second choice; Start 04/17/19 at 07:00; Stop 04/18/19 at 06:59; Status DC Prochlorperazine Edisylate (Compazine) 5 mg PACU PRN PRN IV NAUSEA, MRX1; Start 04/17/19 at 07:00; Stop 04/18/19 at 06:59; Status DC Bupivacaine HCl/ Epinephrine Bitart (Sensorcaine-Epi 0.25%-1:[id number] Mpf) 30 ml 1X ONCE INJ ; Start 04/17/19 at 06:00; Stop 04/17/19 at 06:01; Status DC Gadoterate Meglumine (Dotarem) 29.8 ml 1X ONCE IVP Last administered on 04/17/19at 15:15; Start 04/17/19 at 15:00; Stop 04/17/19 at 15:06; Status DC Ondansetron HCl (Zofran) 4 mg PRN Q6HRS PRN IV NAUSEA/VOMITING; Start 04/20/19 at 07:00; Stop 04/21/19 at 06:59; Status DC Fentanyl Citrate (Fentanyl 2ml Vial) 25 mcg PRN Q5MIN PRN IV MILD PAIN 1-3; Start 04/20/19 at 07:00; Stop 04/21/19 at 06:59; Status DC Fentanyl Citrate (Fentanyl 2ml Vial) 50 mcg PRN Q5MIN PRN IV MODERATE TO SEVERE PAIN; Start 04/20/19 at 07:00; Stop 04/21/19 at 06:59; Status DC Morphine Sulfate (Morphine Sulfate) 1 mg PRN Q10MIN PRN IV SEVERE PAIN 7-10; Start 04/20/19 at 07:00; Stop 04/21/19 at 06:59; Status DC Ringer's Solution 1,000 ml @ 30 mls/hr Q24H IV Last administered on 04/20/19at 10:37; Start 04/20/19 at 07:00; Stop 04/20/19 at 18:59; Status DC Lidocaine HCl (Xylocaine-Mpf 1% 2ml Vial) 2 ml PRN 1X PRN ID PRIOR TO IV START; Start 04/20/19 at 07:00; Stop 04/21/19 at 06:59; Status DC Hydromorphone HCl (Dilaudid) 0.5 mg PRN Q10MIN PRN IV SEV PAIN, Second choice; Start 04/20/19 at 07:00; Stop 04/21/19 at 06:59; Status DC Prochlorperazine Edisylate (Compazine) 5 mg PACU PRN PRN IV NAUSEA, MRX1; Start 04/20/19 at 07:00; Stop 04/21/19 at 06:59; Status DC Bupivacaine HCl/ Epinephrine Bitart (Sensorcaine-Epi 0.25%-1:[id number] Mpf) 30 ml 1X ONCE INJ ; Start 04/20/19 at 10:30; Stop 04/20/19 at 10:31; Status DC Sevoflurane (Ultane) 15 ml STK-MED ONCE IH ; Start 04/20/19 at 10:29; Stop 04/20/19 at 19:53; Status DC Fentanyl Citrate (Fentanyl 2ml Vial) 100 mcg STK-MED ONCE .ROUTE ; Start 04/20/19 at 10:29; Stop 04/20/19 at 19:53; Status DC Propofol 0 ml @ As Directed STK-MED ONCE IV ; Start 04/20/19 at 10:29; Stop 04/20/19 at 19:53; Status DC Lidocaine HCl (Lidocaine Pf 2% Vial) 5 ml STK-MED ONCE .ROUTE ; Start 04/20/19 at 10:29; Stop 04/20/19 at 19:53; Status DC Dexamethasone Sodium Phosphate (Decadron) 4 mg STK-MED ONCE .ROUTE ; Start 04/20/19 at 10:30; Stop 04/20/19 at 19:53; Status DC Ondansetron HCl (Zofran) 4 mg STK-MED ONCE .ROUTE ; Start 04/20/19 at 10:30; Stop 04/20/19 at 19:53; Status DC Phenylephrine HCl (PHENYLEPHRINE in 0.9% NACL PF) 1 mg STK-MED ONCE IV ; Start 04/20/19 at 10:30; Stop 04/20/19 at 19:53; Status DC Sevoflurane (Ultane) 60 ml STK-MED ONCE IH ; Start 04/20/19 at 10:37; Stop 04/20/19 at 19:53; Status DC Fentanyl Citrate (Fentanyl 2ml Vial) 100 mcg STK-MED ONCE .ROUTE ; Start 04/20/19 at 10:37; Stop 04/20/19 at 19:53; Status DC Propofol 20 ml @ As Directed STK-MED ONCE IV ; Start 04/20/19 at 10:38; Stop 04/20/19 at 19:53; Status DC Lidocaine HCl (Lidocaine Pf 2% Vial) 5 ml STK-MED ONCE .ROUTE ; Start 04/20/19 at 10:38; Stop 04/20/19 at 19:53; Status DC Ondansetron HCl (Zofran) 4 mg STK-MED ONCE .ROUTE ; Start 04/20/19 at 10:38; Stop 04/20/19 at 19:53; Status DC Dexamethasone Sodium Phosphate (Decadron) 4 mg STK-MED ONCE .ROUTE ; Start 04/20/19 at 10:38; Stop 04/20/19 at 19:53; Status DC Glycopyrrolate (Robinul) 1 mg STK-MED ONCE .ROUTE ; Start 04/20/19 at 11:10; Stop 04/20/19 at 19:53; Status DC Ephedrine Sulfate (ePHEDrine PF IN SALINE SYRINGE) 50 mg STK-MED ONCE IV ; Start 04/20/19 at 11:16; Stop 04/20/19 at 19:53; Status DC Fentanyl Citrate (Fentanyl 2ml Vial) 100 mcg STK-MED ONCE .ROUTE ; Start 04/20/19 at 12:16; Stop 04/20/19 at 19:53; Status DC Albuterol Sulfate (Ventolin Neb Soln) 2.5 mg PRN QID PRN NEB SHORTNESS OF BREATH; Start 04/21/19 at 08:00 Furosemide (Lasix) 20 mg 1X ONCE IVP Last administered on 04/21/19at 10:07; Start 04/21/19 at 09:30; Stop 04/21/19 at 09:32; Status DC Active Scripts Active Reported Atenolol 50 Mg Tablet 1 Tab PO BID Vitals/I & O Vital Sign - Last 24 Hours 04/21/19 04/21/19 04/21/19 04/21/19 13:21 14:46 15:00 17:57 Temp 97.7 97.7 Pulse 52 Resp 16 B/P (MAP) 135/46 (75) Pulse Ox 96 O2 Delivery Nasal Cannula Room Air Nasal Cannula Nasal Cannula O2 Flow Rate 3.0 3.0 3.0 04/21/19 04/21/19 04/21/19 04/21/19 18:57 19:00 20:00 21:34 Temp 97.6 97.6 Pulse 54 54 Resp 16 B/P (MAP) 136/51 (79) 136/51 Pulse Ox 93 O2 Delivery Room Air Nasal Cannula Nasal Cannula O2 Flow Rate 3.0 3.0 04/21/19 04/21/19 04/21/19 04/22/19 21:37 22:37 23:00 03:05 Temp 98.2 97.8 98.2 97.8 Pulse 52 51 Resp 22 22 16 24 B/P (MAP) 113/48 (69) 122/53 (76) Pulse Ox 85 91 O2 Delivery Nasal Cannula Nasal Cannula BiPAP/CPAP BiPAP/CPAP O2 Flow Rate 3.0 04/22/19 04/22/19 04/22/19 04/22/19 04:22 05:22 07:00 08:00 Temp 98.2 98.2 Pulse 46 Resp 18 20 16 B/P (MAP) 140/47 (78) Pulse Ox 91 O2 Delivery Room Air Room Air Room Air Nasal Cannula O2 Flow Rate 3.0 04/22/19 08:33 Pulse 46 B/P (MAP) 140/47 Intake and Output 04/21/19 04/21/19 04/22/19 15:00 23:00 07:00 Intake Total 180 ml 510 ml 300 ml Output Total 800 ml 2400 ml 1300 ml Balance -620 ml -1890 ml -1000 ml TAYLOR CORDOVA MD Apr 22, 2019 12:02
[2019-04-22] MEDS: FLUCONAZOLE 200MG/100ML PREMIX 100 ML IV SCH (12:09)
[2019-04-22 15:00] VITALS: BP 110/51
[2019-04-22] MEDS: fentaNYL PF VIAL 100 MCG/2 ML VIAL IV PRN (16:14)
[2019-04-22 19:00] VITALS: BP 102/60
[2019-04-22] MEDS: GABAPENTIN 400 MG CAPSULE. PO SCH (20:26)
[2019-04-22] MEDS: ATORVASTATIN CALCIUM 20 MG TABLET PO SCH (20:26)
[2019-04-22] MEDS: INSULIN GLARGINE SYRINGE. SQ SCH (20:35)
[2019-04-22] MEDS: ASPIRIN ENTERIC COATED 325 MG TABLET.DR. PO SCH (21:00)
[2019-04-22 23:08] VITALS: BP 121/46
[2019-04-23 03:15] VITALS: BP 128/40
[2019-04-23] MEDS: HYDROcodone/APAP 5/325MG 1 TAB TABLET PO PRN ×4 (06:03→23:08)
[2019-04-23] MEDS: MEROPENEM 1 GM in IV NORMAL SALINE 100ML 100 ML IV SCH ×3 (06:03→21:33)
[2019-04-23 07:00] VITALS: BP 152/64
[2019-04-23] MEDS: INSULIN LISPRO 300 UNITS/3 ML VIAL. SQ SCH ×5 (07:30→17:35)
--- NOTE | 2019-04-23 08:04 | PDOC ---
PROGRESS NOTES Chief Complaint Chief Complaint 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 s/p amputation, 04/10, then partial excision MT and excisional debridement surrounding necrotic tissue, 04/14 then I and D below fascia w/ tendon involvement on 04/20. cultures no growth ALISIA - better, was 2/2 vasomotor nephropathy Cephalexin allergy -swelling and throat closing Leukocytosis - now s/p steroids prior to surgery, improved Yeast skin Right plantar and heel wound s/p debridement devitalized dermis, 04/14 DM with [id number] 9.7 and neuropathy and target organ damage - hx osteo, partial amputation big toe Obesity, morbid BMI 53 HTN - controlled Lymphedema Hyperkalemia 5.5 - improved Diastolic CHF echo 55% Left rotator cuff calcific tendinopathy. Severe protein-caloric malnutrition PULMONARY HYPERTENSION PA pressure 50 History of Present Illness History of Present Illness Long discussion with her about losing weight, HELPING Herself turn q2 and HELPING herself do the bed pain herself - she had lots of complaints/issues earlier on about her care - seems to not be a highlight of her stay anymore 04/21: K 5.,5 - extra lasix 20 IVP now Easily aroused. Has had some low blood glucose over the past 24 hours. Discussed changing her 26 units scheduled to 22u. Pain reasonably controlled. No SOB or CP. PLAN: IV merrem, IV invanz as [facility] [place] Insulin regimen adjustment Cont PO lasix - s/p lasix IV CHF on CXR and clinically, doing better- stable interval XR with mnormal EF on echo Dc with OP IV abx at [facility] when that has been finalized and with wound vac arrangements (wound was bleeding tuesday so wound vac had to be taken out) Vitals Vitals Vital Signs Date Time Temp Pulse Resp B/P (MAP) Pulse Ox O2 Delivery O2 Flow Rate FiO2 04/23/19 06:03 Room Air 04/23/19 03:15 97.9 49 20 128/40 (69) 91 97.9 04/22/19 20:29 3.0 Physical Exam Physical Exam GENERAL: Propped up in bed, resting quietly, arouses to name, NAD HEENT: Oral cavity, pharynx is clear. NECK: Supple LUNGS: Clear to auscultation bilaterally HEART: S1, S2. ABDOMEN: Morbidly obese, soft, nontender EXTREMITIES: Right 3rd toe and left foot bandaged, dry SKIN: warm to touch NEUROLOGIC: Alert, nonfocal. RUE- PICC clean General: Alert, Oriented X3, Cooperative, No acute distress Heart: Regular rate, Normal S1, Normal S2, No murmurs Lungs: Clear Abdomen: Normal bowel sounds, Soft, No tenderness Extremities: No clubbing, No cyanosis, Other (left leg dressing, rt leg dressing, amputated toe wound vac PLANTAR ASPECT SWOLLEN) Skin: Other (left foot wound with wound vac and right foot wound) Labs LABS Laboratory Tests Test 04/22/19 10:45 04/22/19 11:02 04/22/19 16:51 04/22/19 20:28 Sodium Level 139 mmol/L (136-145) Potassium Level 4.8 mmol/L (3.5-5.1) Chloride Level 100 mmol/L (98-107) Carbon Dioxide Level 39 mmol/L (21-32) Anion Gap 0 (6-14) Blood Urea Nitrogen 36 mg/dL (7-20) Creatinine 0.7 mg/dL (0.6-1.0) Estimated GFR (Cockcroft-Gault) 85.9 Glucose Level 99 mg/dL (70-99) Calcium Level 9.2 mg/dL (8.5-10.1) Glucose (Fingerstick) 83 mg/dL (70-99) 77 mg/dL (70-99) 88 mg/dL (70-99) Comment Review of Relevant I have reviewed the following items adrienne (where applicable) has been applied. Labs Laboratory Tests Test 04/21/19 11:47 04/21/19 16:49 04/21/19 20:30 04/22/19 07:28 Glucose (Fingerstick) 268 mg/dL (70-99) 154 mg/dL (70-99) 150 mg/dL (70-99) 83 mg/dL (70-99) Test 04/22/19 10:45 04/22/19 11:02 04/22/19 16:51 04/22/19 20:28 Sodium Level 139 mmol/L (136-145) Potassium Level 4.8 mmol/L (3.5-5.1) Chloride Level 100 mmol/L (98-107) Carbon Dioxide Level 39 mmol/L (21-32) Anion Gap 0 (6-14) Blood Urea Nitrogen 36 mg/dL (7-20) Creatinine 0.7 mg/dL (0.6-1.0) Estimated GFR (Cockcroft-Gault) 85.9 Glucose Level 99 mg/dL (70-99) Calcium Level 9.2 mg/dL (8.5-10.1) Glucose (Fingerstick) 83 mg/dL (70-99) 77 mg/dL (70-99) 88 mg/dL (70-99) Laboratory Tests Test 04/22/19 10:45 04/22/19 11:02 04/22/19 16:51 04/22/19 20:28 Sodium Level 139 mmol/L (136-145) Potassium Level 4.8 mmol/L (3.5-5.1) Chloride Level 100 mmol/L (98-107) Carbon Dioxide Level 39 mmol/L (21-32) Anion Gap 0 (6-14) Blood Urea Nitrogen 36 mg/dL (7-20) Creatinine 0.7 mg/dL (0.6-1.0) Estimated GFR (Cockcroft-Gault) 85.9 Glucose Level 99 mg/dL (70-99) Calcium Level 9.2 mg/dL (8.5-10.1) Glucose (Fingerstick) 83 mg/dL (70-99) 77 mg/dL (70-99) 88 mg/dL (70-99) Microbiology 04/20/19 Anaerobic/Aerobic Culture, Resulted Pending 04/20/19 Anaerobic Culture Result 1 (DEANNE), Resulted Pending 04/20/19 Aerobic Culture - Preliminary, Resulted 04/20/19 Aerobic Culture Result 1 (DEANNE) - Preliminary, Resulted 04/20/19 Gram Stain - Final, Resulted 04/20/19 Gram Stain Result 1 (DEANNE) - Final, Resulted 04/20/19 Gram Stain Result 2 (DEANNE) - Final, Resulted 04/10/19 Blood Culture - Final, Complete NO GROWTH AFTER 5 DAYS Medications Current Medications Vancomycin HCl (Vanco Per Pharmacy) 1 each PRN DAILY PRN MC SEE COMMENTS Last administered on 04/10/19at 03:41; Start 04/09/19 at 22:30; Stop 04/10/19 at 12:36; Status DC Piperacillin Sod/ Tazobactam Sod (Zosyn Per Pharmacy) 1 each PRN DAILY PRN MC SEE COMMENTS; Start 04/09/19 at 22:30; Stop 04/10/19 at 12:35; Status DC Sodium Chloride 1,000 ml @ 100 mls/hr Q10H IV Last administered on 04/11/19at 05:23; Start 04/09/19 at 23:00; Stop 04/11/19 at 09:26; Status DC Acetaminophen/ Hydrocodone Bitart (Lortab 5/325) 1 tab PRN Q4HRS PRN PO MODERATE PAIN 4-6 Last administered on 04/20/19at 13:21; Start 04/09/19 at 22:30 Acetaminophen/ Hydrocodone Bitart (Lortab 5/325) 2 tab PRN Q4HRS PRN PO SEVERE PAIN 7-10 Last administered on 04/23/19at 06:03; Start 04/09/19 at 22:30 Insulin Glargine (Lantus Syringe) 70 unit QHS SQ Last administered on 04/22/19at 20:35; Start 04/09/19 at 23:00 Insulin Human Lispro (HumaLOG) 20 units 1X ONCE SQ Last administered on 04/09/19at 23:02; Start 04/09/19 at 23:00; Stop 04/09/19 at 23:01; Status DC Insulin Human Lispro (HumaLOG) 0-7 UNITS TIDWMEALS SQ ; Start 04/10/19 at 08:00; Stop 04/10/19 at 08:08; Status DC Dextrose (Dextrose 50%-Water Syringe) 12.5 gm PRN Q15MIN PRN IV SEE COMMENTS; Start 04/09/19 at 22:30; Status Cancel Dextrose 250 ml PRN Q15MIN PRN IV SEE COMMENTS; Start 04/09/19 at 22:30; Status Cancel Insulin Human Lispro (HumaLOG) 26 units TIDAC SQ Last administered on 04/22/19at 17:45; Start 04/10/19 at 07:30 Piperacillin Sod/ Tazobactam Sod 3.375 gm/Sodium Chloride 50 ml @ 100 mls/hr Q6HRS IV Last administered on 04/10/19at 11:35; Start 04/10/19 at 00:00; Stop 04/10/19 at 12:35; Status DC Gabapentin (Neurontin) 900 mg BID92 PO Last administered on 04/22/19 13:11; Start 04/10/19 at 09:00 Gabapentin (Neurontin) 1,200 mg HS PO Last administered on 04/22/19 20:26; Start 04/10/19 at 21:00 Atenolol (Tenormin) 40 mg DAILY PO ; Start 04/10/19 at 09:00; Status UNV Vancomycin HCl 2 gm/Sodium Chloride 500 ml @ 250 mls/hr Q12H IV Last administered on 04/10/19at 05:20; Start 04/10/19 at 05:00; Stop 04/10/19 at 12:36; Status DC Vancomycin HCl (Vancomycin Trough Level) 1 each 1X ONCE MC ; Start 04/11/19 at 04:30; Stop 04/11/19 at 04:31; Status Cancel Insulin Human Lispro (HumaLOG) 0-9 UNITS TIDWMEALS SQ Last administered on 04/21/19at 17:31; Start 04/10/19 at 12:00 Dextrose (Dextrose 50%-Water Syringe) 12.5 gm PRN Q15MIN PRN IV SEE COMMENTS; Start 04/10/19 at 08:15 Dextrose 250 ml PRN Q15MIN PRN IV SEE COMMENTS; Start 04/10/19 at 08:15 Acetaminophen (Tylenol) 500 mg PRN Q6HRS PRN PO MILD PAIN / TEMP Last administered on 04/12/19at 13:04; Start 04/10/19 at 08:15 Ondansetron HCl (Zofran) 4 mg PRN Q6HRS PRN IV NAUSEA/VOMITING Last administered on 04/13/19at 12:24; Start 04/10/19 at 08:15 Fentanyl Citrate (Fentanyl 2ml Vial) 50 mcg PRN Q2HR PRN IV PAIN Last administered on 04/22/19 16:14; Start 04/10/19 at 08:15 Sodium Chloride ([place] Saline Nasal) 1 nadeem PRN Q2HRS PRN NS NASAL CONGESTION Last administered on 04/10/19at 15:54; Start 04/10/19 at 11:45 Fluconazole/ Sodium Chloride 100 ml @ 100 mls/hr Q24H IV Last administered on 04/22/19at 12:09; Start 04/10/19 at 13:00 Meropenem 1 gm/ Sodium Chloride 100 ml @ 200 mls/hr Q8HRS IV Last administered on 04/23/19at 06:03; Start 04/10/19 at 14:00 Daptomycin 900 mg/ Sodium Chloride 50 ml @ 100 mls/hr Q24H IV Last administered on 04/16/19at 12:24; Start 04/10/19 at 13:00; Stop 04/17/19 at 10:05; Status DC Fentanyl Citrate (Fentanyl 2ml Vial) 25 mcg PRN Q5MIN PRN IV MILD PAIN 1-3; Start 04/10/19 at 13:15; Stop 04/11/19 at 11:49; Status DC Fentanyl Citrate (Fentanyl 2ml Vial) 50 mcg PRN Q5MIN PRN IV MODERATE TO SEVERE PAIN; Start 04/10/19 at 13:15; Stop 04/11/19 at 11:49; Status DC Morphine Sulfate (Morphine Sulfate) 1 mg PRN Q10MIN PRN IV SEVERE PAIN 7-10; Start 04/10/19 at 13:15; Stop 04/11/19 at 11:50; Status DC Ringer's Solution 1,000 ml @ 30 mls/hr Q24H IV ; Start 04/10/19 at 13:14; Stop 04/11/19 at 01:13; Status DC Hydromorphone HCl (Dilaudid) 0.5 mg PRN Q10MIN PRN IV SEV PAIN, Second choice; Start 04/10/19 at 13:15; Stop 04/11/19 at 11:50; Status DC Prochlorperazine Edisylate (Compazine) 5 mg PACU PRN PRN IV NAUSEA, MRX1; Start 04/10/19 at 13:15; Stop 04/11/19 at 11:50; Status DC Fentanyl Citrate (Fentanyl 2ml Vial) 100 mcg STK-MED ONCE .ROUTE ; Start 04/10/19 at 13:20; Stop 04/10/19 at 13:21; Status DC Sevoflurane (Ultane) 30 ml STK-MED ONCE IH ; Start 04/10/19 at 13:20; Stop 04/10/19 at 13:21; Status DC Propofol 20 ml @ As Directed STK-MED ONCE IV ; Start 04/10/19 at 13:20; Stop 04/10/19 at 13:21; Status DC Dexamethasone Sodium Phosphate (Decadron) 4 mg STK-MED ONCE .ROUTE ; Start 04/10/19 at 13:21; Stop 04/10/19 at 13:21; Status DC Lidocaine HCl (Lidocaine Pf 2% Vial) 5 ml STK-MED ONCE .ROUTE ; Start 04/10/19 at 13:21; Stop 04/10/19 at 13:21; Status DC Ondansetron HCl (Zofran) 4 mg STK-MED ONCE .ROUTE ; Start 04/10/19 at 13:21; Stop 04/10/19 at 13:21; Status DC Phenylephrine HCl (PHENYLEPHRINE in 0.9% NACL PF) 1 mg STK-MED ONCE IV ; Start 04/10/19 at 14:27; Stop 04/10/19 at 14:27; Status DC Aspirin (Ecotrin) 325 mg QHS PO Last administered on 04/20/19at 20:31; Start at 21:00 Oxycodone/ Acetaminophen (Percocet 5/325) 1 tab PRN Q4HRS PRN PO MODERATE PAIN, LAST OPTION Last administered on 04/14/19at 15:41; Start 04/10/19 at 15:15; Stop 04/15/19 at 16:17; Status DC Oxycodone/ Acetaminophen (Percocet 5/325) 2 tab PRN Q4HRS PRN PO SEVERE PAIN, LAST OPTION Last administered on 04/14/19at 20:33; Start 04/10/19 at 15:30; Stop 04/15/19 at 16:17; Status DC Insulin Glargine (Lantus Syringe) 30 unit DAILY SQ Last administered on 04/21/19at 08:53; Start 04/11/19 at 09:00; Stop 04/21/19 at 20:11; Status DC Sodium Polystyrene Sulfonate (Kayexalate) 15 gm 1X ONCE PO Last administered on 04/11/19at 10:24; Start 04/11/19 at 09:00; Stop 04/11/19 at 09:01; Status DC Meclizine HCl (Antivert) 12.5 mg PRN Q6HRS PRN PO DIZZINESS Last administered on 04/11/19at 10:24; Start 04/11/19 at 09:30 Albuterol Sulfate (Ventolin Neb Soln) 2.5 mg PRN Q4HRS PRN NEB SHORTNESS OF BREATH Last administered on 04/14/19at 15:30; Start 04/11/19 at 10:45; Stop 04/14/19 at 15:46; Status DC Albuterol Sulfate (Ventolin Neb Soln) 2.5 mg 1X ONCE NEB Last administered on 04/11/19at 11:54; Start 04/11/19 at 11:00; Stop 04/11/19 at 11:01; Status DC Lactobacillus Rhamnosus (Culturelle) 1 cap BID PO Last administered on 04/22/19at 20:26; Start 04/11/19 at 12:00 Furosemide (Lasix) 40 mg 1X ONCE IVP Last administered on 04/11/19at 20:18; Start 04/11/19 at 19:00; Stop 04/11/19 at 19:01; Status DC Perflutren Protein Type A Microsphe (Optison) 0.66 mg 1X ONCE IV ; Start 04/12/19 at 10:00; Stop 04/12/19 at 10:01; Status DC Furosemide (Lasix) 40 mg 1X ONCE IVP Last administered on 04/12/19at 11:44; Start 04/12/19 at 10:45; Stop 04/12/19 at 10:49; Status DC Atenolol (Tenormin) 50 mg BID PO Last administered on 04/22/19at 08:33; Start 04/13/19 at 14:00; Stop 04/22/19 at 08:54; Status DC Morphine Sulfate (Morphine Sulfate) 1 mg PRN Q10MIN PRN IV SEVERE PAIN 7-10; Start 04/14/19 at 07:00; Stop 04/15/19 at 06:59; Status DC Ringer's Solution 1,000 ml @ 30 mls/hr Q24H IV ; Start 04/14/19 at 07:00; Stop 04/14/19 at 18:59; Status DC Hydromorphone HCl (Dilaudid) 0.5 mg PRN Q10MIN PRN IV SEV PAIN, Second choice; Start 04/14/19 at 07:00; Stop 04/15/19 at 06:59; Status DC Prochlorperazine Edisylate (Compazine) 5 mg PACU PRN PRN IV NAUSEA, MRX1; Start 04/14/19 at 07:00; Stop 04/15/19 at 06:59; Status DC Furosemide (Lasix) 40 mg 1X ONCE IVP Last administered on 04/13/19at 17:35; Start 04/13/19 at 17:00; Stop 04/13/19 at 17:01; Status DC Furosemide (Lasix) 40 mg DAILY PO Last administered on 04/22/19at 08:32; Start 04/14/19 at 09:00 Atorvastatin Calcium (Lipitor) 20 mg QHS PO Last administered on 04/22/19at 20:26; Start 04/13/19 at 21:00 Insulin Human Lispro (HumaLOG) 3 units 1X ONCE SQ Last administered on 04/13/19at 20:44; Start 04/13/19 at 21:00; Stop 04/13/19 at 21:01; Status DC Propofol 20 ml @ As Directed STK-MED ONCE IV ; Start 04/14/19 at 07:35; Stop 04/14/19 at 07:36; Status DC Dexamethasone Sodium Phosphate (Decadron) 4 mg STK-MED ONCE .ROUTE ; Start 04/14/19 at 07:35; Stop 04/14/19 at 07:36; Status DC Lidocaine HCl (Lidocaine Pf 2% Vial) 5 ml STK-MED ONCE .ROUTE ; Start 04/14/19 at 07:35; Stop 04/14/19 at 07:36; Status DC Ondansetron HCl (Zofran) 4 mg STK-MED ONCE .ROUTE ; Start 04/14/19 at 07:35; Stop 04/14/19 at 07:36; Status DC Sevoflurane (Ultane) 60 ml STK-MED ONCE IH ; Start 04/14/19 at 07:36; Stop 04/14/19 at 07:36; Status DC Sevoflurane (Ultane) 15 ml STK-MED ONCE IH ; Start 04/14/19 at 09:22; Stop 04/14/19 at 09:23; Status DC Morphine Sulfate (Morphine Sulfate) 1 mg PRN Q10MIN PRN IV SEVERE PAIN 7-10; Start 04/14/19 at 09:45; Stop 04/14/19 at 20:00; Status DC Ringer's Solution 1,000 ml @ 30 mls/hr Q24H IV ; Start 04/14/19 at 09:32; Stop 04/14/19 at 21:31; Status DC Hydromorphone HCl (Dilaudid) 0.5 mg PRN Q10MIN PRN IV SEV PAIN, Second choice Last administered on 04/14/19at 10:06; Start 04/14/19 at 09:45; Stop 04/14/19 at 20:00; Status DC Prochlorperazine Edisylate (Compazine) 5 mg PACU PRN PRN IV NAUSEA, MRX1; Start 04/14/19 at 09:45; Stop 04/14/19 at 20:00; Status DC Fentanyl Citrate (Fentanyl 2ml Vial) 100 mcg STK-MED ONCE .ROUTE ; Start 04/14/19 at 09:33; Stop 04/14/19 at 09:33; Status DC Albuterol Sulfate (Ventolin Neb Soln) 2.5 mg RTQID NEB Last administered on 04/18/19at 07:20; Start 04/14/19 at 15:45; Stop 04/20/19 at 23:47; Status DC Morphine Sulfate (Morphine Sulfate) 1 mg PRN Q10MIN PRN IV SEVERE PAIN 7-10; Start 04/17/19 at 07:00; Stop 04/18/19 at 06:59; Status DC Ringer's Solution 1,000 ml @ 30 mls/hr Q24H IV ; Start 04/17/19 at 07:00; Stop 04/17/19 at 18:59; Status DC Lidocaine HCl (Xylocaine-Mpf 1% 2ml Vial) 2 ml PRN 1X PRN ID PRIOR TO IV START; Start 04/17/19 at 07:00; Stop 04/18/19 at 06:59; Status DC Hydromorphone HCl (Dilaudid) 0.5 mg PRN Q10MIN PRN IV SEV PAIN, Second choice; Start 04/17/19 at 07:00; Stop 04/18/19 at 06:59; Status DC Prochlorperazine Edisylate (Compazine) 5 mg PACU PRN PRN IV NAUSEA, MRX1; Start 04/17/19 at 07:00; Stop 04/18/19 at 06:59; Status DC Bupivacaine HCl/ Epinephrine Bitart (Sensorcaine-Epi 0.25%-1:[id number] Mpf) 30 ml 1X ONCE INJ ; Start 04/17/19 at 06:00; Stop 04/17/19 at 06:01; Status DC Gadoterate Meglumine (Dotarem) 29.8 ml 1X ONCE IVP Last administered on at 15:15; Start 04/17/19 at 15:00; Stop 04/17/19 at 15:06; Status DC Ondansetron HCl (Zofran) 4 mg PRN Q6HRS PRN IV NAUSEA/VOMITING; Start 04/20/19 at 07:00; Stop 04/21/19 at 06:59; Status DC Fentanyl Citrate (Fentanyl 2ml Vial) 25 mcg PRN Q5MIN PRN IV MILD PAIN 1-3; Start 04/20/19 at 07:00; Stop 04/21/19 at 06:59; Status DC Fentanyl Citrate (Fentanyl 2ml Vial) 50 mcg PRN Q5MIN PRN IV MODERATE TO SEVERE PAIN; Start 04/20/19 at 07:00; Stop 04/21/19 at 06:59; Status DC Morphine Sulfate (Morphine Sulfate) 1 mg PRN Q10MIN PRN IV SEVERE PAIN 7-10; Start 04/20/19 at 07:00; Stop 04/21/19 at 06:59; Status DC Ringer's Solution 1,000 ml @ 30 mls/hr Q24H IV Last administered on 04/20/19at 10:37; Start 04/20/19 at 07:00; Stop 04/20/19 at 18:59; Status DC Lidocaine HCl (Xylocaine-Mpf 1% 2ml Vial) 2 ml PRN 1X PRN ID PRIOR TO IV START; Start 04/20/19 at 07:00; Stop 04/21/19 at 06:59; Status DC Hydromorphone HCl (Dilaudid) 0.5 mg PRN Q10MIN PRN IV SEV PAIN, Second choice; Start 04/20/19 at 07:00; Stop 04/21/19 at 06:59; Status DC Prochlorperazine Edisylate (Compazine) 5 mg PACU PRN PRN IV NAUSEA, MRX1; Start 04/20/19 at 07:00; Stop 04/21/19 at 06:59; Status DC Bupivacaine HCl/ Epinephrine Bitart (Sensorcaine-Epi 0.25%-1:[id number] Mpf) 30 ml 1X ONCE INJ ; Start 04/20/19 at 10:30; Stop 04/20/19 at 10:31; Status DC Sevoflurane (Ultane) 15 ml STK-MED ONCE IH ; Start 04/20/19 at 10:29; Stop 04/20/19 at 19:53; Status DC Fentanyl Citrate (Fentanyl 2ml Vial) 100 mcg STK-MED ONCE .ROUTE ; Start 04/20/19 at 10:29; Stop 04/20/19 at 19:53; Status DC Propofol 0 ml @ As Directed STK-MED ONCE IV ; Start 04/20/19 at 10:29; Stop 04/20/19 at 19:53; Status DC Lidocaine HCl (Lidocaine Pf 2% Vial) 5 ml STK-MED ONCE .ROUTE ; Start 04/20/19 at 10:29; Stop 04/20/19 at 19:53; Status DC Dexamethasone Sodium Phosphate (Decadron) 4 mg STK-MED ONCE .ROUTE ; Start 04/20/19 at 10:30; Stop 04/20/19 at 19:53; Status DC Ondansetron HCl (Zofran) 4 mg STK-MED ONCE .ROUTE ; Start 04/20/19 at 10:30; Stop 04/20/19 at 19:53; Status DC Phenylephrine HCl (PHENYLEPHRINE in 0.9% NACL PF) 1 mg STK-MED ONCE IV ; Start 04/20/19 at 10:30; Stop 04/20/19 at 19:53; Status DC Sevoflurane (Ultane) 60 ml STK-MED ONCE IH ; Start 04/20/19 at 10:37; Stop 04/20/19 at 19:53; Status DC Fentanyl Citrate (Fentanyl 2ml Vial) 100 mcg STK-MED ONCE .ROUTE ; Start 04/20/19 at 10:37; Stop 04/20/19 at 19:53; Status DC Propofol 20 ml @ As Directed STK-MED ONCE IV ; Start 04/20/19 at 10:38; Stop 04/20/19 at 19:53; Status DC Lidocaine HCl (Lidocaine Pf 2% Vial) 5 ml STK-MED ONCE .ROUTE ; Start 04/20/19 at 10:38; Stop 04/20/19 at 19:53; Status DC Ondansetron HCl (Zofran) 4 mg STK-MED ONCE .ROUTE ; Start 04/20/19 at 10:38; Stop 04/20/19 at 19:53; Status DC Dexamethasone Sodium Phosphate (Decadron) 4 mg STK-MED ONCE .ROUTE ; Start 04/20/19 at 10:38; Stop 04/20/19 at 19:53; Status DC Glycopyrrolate (Robinul) 1 mg STK-MED ONCE .ROUTE ; Start 04/20/19 at 11:10; Stop 04/20/19 at 19:53; Status DC Ephedrine Sulfate (ePHEDrine PF IN SALINE SYRINGE) 50 mg STK-MED ONCE IV ; Start 04/20/19 at 11:16; Stop 04/20/19 at 19:53; Status DC Fentanyl Citrate (Fentanyl 2ml Vial) 100 mcg STK-MED ONCE .ROUTE ; Start 03/26 02/09 at 12:16; Stop 04/20/19 at 19:53; Status DC Albuterol Sulfate (Ventolin Neb Soln) 2.5 mg PRN QID PRN NEB SHORTNESS OF [place] A[place]; Start 04/21/19 at 08:00 Furosemide (Lasix) 20 mg 1X ONCE IVP Last administered on 04/21/19at 10:07; Start 04/21/19 at 09:30; Stop 04/21/19 at 09:32; Status DC Active Scripts Active Reported Atenolol 50 Mg Tablet 1 Tab PO BID Vitals/I & O Vital Sign - Last 24 Hours 04/22/19 04/22/19 04/22/19 04/22/19 08:33 11:00 12:08 13:12 Temp 98.5 98.5 Pulse 46 46 Resp 14 B/P (MAP) 140/47 118/49 (72) Pulse Ox 95 91 91 O2 Delivery Nasal Cannula Nasal Cannula Nasal Cannula O2 Flow Rate 3.0 3.0 3.0 04/22/19 04/22/19 04/22/19 04/22/19 15:00 16:14 17:10 19:00 Temp 98.9 97.1 98.9 97.1 Pulse 43 50 Resp 14 20 B/P (MAP) 110/51 (70) 102/60 (74) Pulse Ox 95 95 95 94 O2 Delivery Nasal Cannula Nasal Cannula Nasal Cannula Nasal Cannula O2 Flow Rate 3.0 3.0 3.0 04/22/19 04/22/19 04/22/19 04/22/19 20:00 20:29 21:29 23:08 Temp 97.9 97.9 Pulse 52 Resp 20 24 20 B/P (MAP) 121/46 (71) Pulse Ox 96 O2 Delivery Nasal Cannula Nasal Cannula Nasal Cannula Room Air O2 Flow Rate 3.0 3.0 04/23/19 04/23/19 03:15 06:03 Temp 97.9 97.9 Pulse 49 Resp 20 B/P (MAP) 128/40 (69) Pulse Ox 91 O2 Delivery BiPAP/CPAP Room Air Intake and Output 04/22/19 04/22/19 04/23/19 15:00 23:00 07:00 Intake Total 510 ml Output Total 1800 ml Balance 510 ml -1800 ml REJI ALEJO MD Apr 23, 2019 08:04
--- NOTE | 2019-04-23 08:32 | PDOC ---
ORTHO PROGRESS NOTES Subjective Patient concerned that wound vac removed and blleding at wound sight. Procedure I&D x 3 with wound vac Vitals Vital Signs Date Time Temp Pulse Resp B/P (MAP) Pulse Ox O2 Delivery O2 Flow Rate FiO2 04/23/19 06:03 Room Air 04/23/19 03:15 97.9 49 20 128/40 (69) 91 97.9 04/22/19 20:29 3.0 Labs Laboratory Tests Test 04/21/19 11:47 04/21/19 16:49 04/21/19 20:30 04/22/19 07:28 Glucose (Fingerstick) 268 mg/dL (70-99) 154 mg/dL (70-99) 150 mg/dL (70-99) 83 mg/dL (70-99) Test 04/22/19 10:45 04/22/19 11:02 04/22/19 16:51 04/22/19 20:28 Sodium Level 139 mmol/L (136-145) Potassium Level 4.8 mmol/L (3.5-5.1) Chloride Level 100 mmol/L (98-107) Carbon Dioxide Level 39 mmol/L (21-32) Anion Gap 0 (6-14) Blood Urea Nitrogen 36 mg/dL (7-20) Creatinine 0.7 mg/dL (0.6-1.0) Estimated GFR (Cockcroft-Gault) 85.9 Glucose Level 99 mg/dL (70-99) Calcium Level 9.2 mg/dL (8.5-10.1) Glucose (Fingerstick) 83 mg/dL (70-99) 77 mg/dL (70-99) 88 mg/dL (70-99) Laboratory Tests Test 04/22/19 10:45 04/22/19 11:02 04/22/19 16:51 04/22/19 20:28 Sodium Level 139 mmol/L (136-145) Potassium Level 4.8 mmol/L (3.5-5.1) Chloride Level 100 mmol/L (98-107) Carbon Dioxide Level 39 mmol/L (21-32) Anion Gap 0 (6-14) Blood Urea Nitrogen 36 mg/dL (7-20) Creatinine 0.7 mg/dL (0.6-1.0) Estimated GFR (Cockcroft-Gault) 85.9 Glucose Level 99 mg/dL (70-99) Calcium Level 9.2 mg/dL (8.5-10.1) Glucose (Fingerstick) 83 mg/dL (70-99) 77 mg/dL (70-99) 88 mg/dL (70-99) Notes awake and alert eating breakfast. Assessment and Plan Patient's foot with dried blood on dressing. Per report dressing changed 3 times during the night. Wound vac to be replaced Will discuss wound closure with Dr Sandoval. MIRIAM ABEBE APRN Apr 23, 2019 08:32
[2019-04-23] MEDS: LACTOBACILLUS RHAMNOSUS GG 1 CAPSULE. PO SCH ×2 (09:43→21:32)
[2019-04-23] MEDS: GABAPENTIN 300 MG CAPSULE. PO SCH ×3 (09:43→21:32)
[2019-04-23] MEDS: FUROSEMIDE 40 MG TABLET. PO SCH (09:43)
[2019-04-23 11:00] VITALS: BP 114/60
[2019-04-23] MEDS ORDERED: INSULIN LISPRO 300 UNITS/3 ML VIAL. SQ SCH (12:09)
--- NOTE | 2019-04-23 12:26 | PDOC ---
Infectious Disease Note Subjective Subjective Says bleeding has slowed down Quit taking ASA Denies pain/F/C/N/V/D ROS ROS per HPI Vital Sign Vital Signs Vital Signs Date Time Temp Pulse Resp B/P (MAP) Pulse Ox O2 Delivery O2 Flow Rate FiO2 04/23/19 11:00 98.2 51 18 114/60 (78) 97 Room Air 98.2 04/22/19 20:29 3.0 Physical Exam PHYSICAL EXAM GENERAL: Propped up in bed, alert, NAD HEENT: Oral cavity, pharynx is clear. NECK: Supple LUNGS: Clear to auscultation bilaterally HEART: S1, S2. ABDOMEN: Morbidly obese, soft, nontender EXTREMITIES: Right 3rd toe and left foot bandaged, dry SKIN: warm to touch NEUROLOGIC: Alert, nonfocal. RUE- PICC clean Labs Lab Laboratory Tests Test 04/22/19 16:51 04/22/19 20:28 04/23/19 11:26 Glucose (Fingerstick) 77 mg/dL (70-99) 88 mg/dL (70-99) 125 mg/dL (70-99) Micro 04/20. ANAEROBIC RES 1 PENDING AEROBIC CULT Final Preliminary report Final report AEROBIC RES 1 Final Comment No growth in 36 - 48 hours. No growth in 56 - 72 hours. GRAM STAIN RES 1 Final Comment No white blood cells seen. 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 s/p amputation, 04/10, then partial excision MT and excisional debridement surrounding necrotic tissue, 04/14 then I and D below fascia w/ tendon involvement on 04/20. cultures no growth ALISIA - better Cephalexin allergy -swelling and throat closing Leukocytosis - now s/p steroids prior to surgery, improved Yeast skin Dm Right plantar wound s/p debridement devitalized dermis, 04/14 Plan Plan of Care Meropenem and fluconazole (04/10) Monitor for abx toxicities/side effects Probiotics Cultures neg so far Wound care as directed pictures reviewed looks clean cont vac as in place now Attending Co-Sign Attending Co-Sign The patient was seen and interviewed as well as examined at the bedside. The chart was reviewed. The case was discussed. Agree with the plan of care. BRISA LUCIA APRN Apr 23, 2019 12:26 MEG BURNS MD Apr 23, 2019 16:57
[2019-04-23] MEDS: FLUCONAZOLE 200MG/100ML PREMIX 100 ML IV SCH (13:04)
[2019-04-23 15:00] VITALS: BP 130/34
--- NOTE | 2019-04-23 15:19 | NUR ---
Wound Care: Follow up to place wound vac to L foot open surgical incision. Cleansed and periwound prepped with skin prep and ostomy ring. One piece of black foam placed in wound bed, good seal achieved. Veraflow set to instill NS 10cc for 4minute dwell time every 4 hours. Dressings changed to R 3rds toe and R plantar forefoot with iodoflex and telfa dressings. On P500 mattress. No open areas noted on head to toe assessment. Follow up for next dressing change on 04/25/19.
[2019-04-23 19:00] VITALS: BP 128/53
[2019-04-23] MEDS: GABAPENTIN 400 MG CAPSULE. PO SCH (21:00)
[2019-04-23] MEDS: ATORVASTATIN CALCIUM 20 MG TABLET PO SCH (21:31)
[2019-04-23] MEDS: ASPIRIN ENTERIC COATED 325 MG TABLET.DR. PO SCH (21:31)
[2019-04-23] MEDS: INSULIN GLARGINE SYRINGE. SQ SCH (21:32)
[2019-04-23 23:00] VITALS: BP 145/58
[2019-04-24 03:00] VITALS: BP 142/61
[2019-04-24] MEDS: MEROPENEM 1 GM in IV NORMAL SALINE 100ML 100 ML IV SCH ×3 (05:48→22:17)
[2019-04-24] MEDS: HYDROcodone/APAP 5/325MG 1 TAB TABLET PO PRN ×3 (05:48→19:57)
[2019-04-24 07:00] VITALS: BP 169/65
[2019-04-24] MEDS: FUROSEMIDE 40 MG TABLET. PO SCH (07:55)
[2019-04-24] MEDS: LACTOBACILLUS RHAMNOSUS GG 1 CAPSULE. PO SCH ×2 (07:55→21:09)
[2019-04-24] MEDS: INSULIN LISPRO 300 UNITS/3 ML VIAL. SQ SCH ×6 (08:00→17:04)
--- NOTE | 2019-04-24 08:48 | PDOC ---
ORTHO PROGRESS NOTES Subjective Patient painful at foot this morning. Procedure I&D x2 Vitals Vital Signs Date Time Temp Pulse Resp B/P (MAP) Pulse Ox O2 Delivery O2 Flow Rate FiO2 04/24/19 07:29 96 Nasal Cannula 2.0 04/24/19 07:00 98.0 61 18 169/65 (99) 98.0 Labs Laboratory Tests Test 04/22/19 10:45 04/22/19 11:02 04/22/19 16:51 04/22/19 20:28 Sodium Level 139 mmol/L (136-145) Potassium Level 4.8 mmol/L (3.5-5.1) Chloride Level 100 mmol/L (98-107) Carbon Dioxide Level 39 mmol/L (21-32) Anion Gap 0 (6-14) Blood Urea Nitrogen 36 mg/dL (7-20) Creatinine 0.7 mg/dL (0.6-1.0) Estimated GFR (Cockcroft-Gault) 85.9 Glucose Level 99 mg/dL (70-99) Calcium Level 9.2 mg/dL (8.5-10.1) Glucose (Fingerstick) 83 mg/dL (70-99) 77 mg/dL (70-99) 88 mg/dL (70-99) Test 04/23/19 11:26 04/23/19 16:13 04/23/19 20:34 04/24/19 07:42 Glucose (Fingerstick) 125 mg/dL (70-99) 89 mg/dL (70-99) 130 mg/dL (70-99) 109 mg/dL (70-99) Laboratory Tests Test 04/23/19 11:26 04/23/19 16:13 04/23/19 20:34 04/24/19 07:42 Glucose (Fingerstick) 125 mg/dL (70-99) 89 mg/dL (70-99) 130 mg/dL (70-99) 109 mg/dL (70-99) Notes awake and alert Assessment and Plan Patient able to move toes on request in boot Wound vac in place continue antibiotics per MIRIAM EASON APRN Apr 24, 2019 08:48
[2019-04-24] MEDS: fentaNYL PF VIAL 100 MCG/2 ML VIAL IV PRN (09:03)
--- NOTE | 2019-04-24 09:41 | PDOC ---
[employer] PROGRESS NOTE Chief Complaint Chief Complaint 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 s/p amputation, 04/10, then partial excision MT and excisional debridement surroundin g necrotic tissue, 04/14 then I and D below fascia w/ tendon involvement on 04/20. cultures no growth ALISIA - better, was 2/2 vasomotor nephropathy Cephalexin allergy -swelling and throat closing Leukocytosis - now s/p steroids prior to surgery, improved Yeast skin Right plantar and heel wound s/p debridement devitalized dermis, 04/14 DM with hgba1c 9.7 and neuropathy and target organ damage - hx osteo, partial amputation big toe Obesity, morbid BMI 53 HTN - controlled Lymphedema Hyperkalemia 5.5 - improved Diastolic CHF echo 55% Left rotator cuff calcific tendinopathy. Severe protein-caloric malnutrition PULMONARY HYPERTENSION PA pressure 50 History of Present Illness History of Present Illness 04/24/19 Pt seen and examined at bedside Pt was pleasant and not in acute distress Wound vac dry Discussed care plan with pt Chart and labs reviewed D/w RN 04/23/19 Pt seen and examined by Dr. Correa Long discussion with her about losing weight, HELPING Herself turn q2 and HELPING herself do the bed pain herself - she had lots of complaints/issues earlier on about her care - seems to not be a highlight of her stay anymore 04/21: K 5.,5 - extra lasix 20 IVP now Easily aroused. Has had some low blood glucose over the past 24 hours. Discussed changing her 26 units scheduled to 22u. Pain reasonably controlled. No SOB or CP. Vitals/I&O Vitals/I&O: Vital Signs Date Time Temp Pulse Resp B/P (MAP) Pulse Ox O2 Delivery O2 Flow Rate FiO2 04/24/19 09:03 96 Nasal Cannula 2.0 04/24/19 07:00 98.0 61 18 169/65 (99) 98.0 I & O 04/23/19 04/23/19 04/24/19 14:59 22:59 06:59 Intake Total 660 ml 360 ml Output Total 1300 ml 1301 ml Balance -640 ml -941 ml Physical Exam Physical Exam: GENERAL: Propped up in bed, alert, NAD HEENT: Oral cavity, pharynx is clear. NECK: Supple LUNGS: Clear to auscultation bilaterally HEART: S1, S2. ABDOMEN: Morbidly obese, soft, nontender EXTREMITIES: Right 3rd toe and left foot bandaged, dry, Venous stasis b/l upto barron SKIN: warm to touch NEUROLOGIC: Alert, nonfocal. RUE- PICC clean General: Alert, Oriented X3, Cooperative, No acute distress Heart: Regular rate, Normal S1, Normal S2, No murmurs Lungs: Clear Abdomen: Normal bowel sounds, Soft, No tenderness Extremities: No clubbing, No cyanosis, Other (left leg dressing, rt leg dressing, amputated toe wound vac PLANTAR ASPECT SWOLLEN) Skin: Other (left foot wound with wound vac and right foot wound) Labs Labs: Laboratory Tests Test 04/23/19 11:26 04/23/19 16:13 04/23/19 20:34 04/24/19 07:42 Glucose (Fingerstick) 125 mg/dL (70-99) 89 mg/dL (70-99) 130 mg/dL (70-99) 109 mg/dL (70-99) Review of Systems Review of Systems: Pt denies fever Pt co numbness and tingling in lower extremities Assessment and Plan Assessmemt and Plan Assessment 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 s/p amputation, 04/10, then partial excision MT and excisional debridement surrounding necrotic tissue, 04/14 then I and D below fascia w/ tendon involvement on 04/20. cultures no growth Right plantar wound s/p debridement devitalized dermis, 04/14 ALISIA - better DM Plan Discharge in progress IV abx at [facility] DVT prophylaxis Home meds Full code Encourage weight loss Comment Review of Relevant I have reviewed the following items adrienne (where applicable) has been applied. Medications: Current Medications Medications (Trade) Dose Ordered Sig/Facundo Route PRN Reason Start Time Stop Time Status Last Admin Dose Admin Insulin Human Lispro (HumaLOG) 22 units TIDAC SQ 04/23/19 12:09 04/23/19 17:03 DC 04/23/19 13:12 Insulin Glargine (Lantus Syringe) 55 unit QHS SQ 04/23/19 21:00 04/23/19 21:32 Insulin Human Lispro (HumaLOG) 15 units TIDAC SQ 04/23/19 17:15 04/24/19 08:01 EWELINA GUZMAN III DO Apr 24, 2019 09:41
[2019-04-24 11:00] VITALS: BP 130/53
--- NOTE | 2019-04-24 11:16 | PDOC ---
Infectious Disease Note Subjective Subjective Doing alright, the same Denies pain/F/C/N/V/D ROS ROS per HPI Vital Sign Vital Signs Vital Signs Date Time Temp Pulse Resp B/P (MAP) Pulse Ox O2 Delivery O2 Flow Rate FiO2 04/24/19 09:03 96 Nasal Cannula 2.0 04/24/19 07:00 98.0 61 18 169/65 (99) 98.0 Physical Exam PHYSICAL EXAM GENERAL: Propped up in bed, alert, NAD - in chair currently HEENT: Oral cavity, pharynx clear. NECK: Supple LUNGS: Clear to auscultation bilaterally HEART: S1, S2. ABDOMEN: Morbidly obese, soft, nontender EXTREMITIES: Right 3rd toe bandaged, dry. Left foot wound vac in place. Venous stasis b/l up to barron SKIN: warm to touch NEUROLOGIC: Alert, nonfocal. RUE- PICC clean Labs Lab Laboratory Tests Test 04/23/19 11:26 04/23/19 16:13 04/23/19 20:34 04/24/19 07:42 Glucose (Fingerstick) 125 mg/dL (70-99) 89 mg/dL (70-99) 130 mg/dL (70-99) 109 mg/dL (70-99) Micro 04/20. ANAEROBIC RES 1 Preliminary No anaerobes recovered in 48 hours. AEROBIC CULT Final Preliminary report Final report AEROBIC RES 1 Final Comment No growth in 36 - 48 hours. No growth in 56 - 72 hours. GRAM STAIN RES 1 Final Comment No white blood cells seen. 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 s/p amputation, 04/10, then partial excision MT and excisional debridement surrounding necrotic tissue, 04/14 then I and D below fascia w/ tendon involvement on 04/20. cultures no growth ALISIA - better Cephalexin allergy -swelling and throat closing Leukocytosis - now s/p steroids prior to surgery, improved Yeast skin Dm Right plantar wound s/p debridement devitalized dermis, 04/14 Plan Plan of Care Meropenem and fluconazole (04/10) off dapto Probiotics Cultures neg Wound care as directed f/u labs in am Awaiting Ortho f/u Attending Co-Sign Attending Co-Sign The patient was seen and interviewed as well as examined at the bedside. The chart was reviewed. The case was discussed. Agree with the plan of care. BRISA LUCIA APRN Apr 24, 2019 11:16 MEG BURNS MD Apr 24, 2019 16:34
[2019-04-24] MEDS: FLUCONAZOLE 200MG/100ML PREMIX 100 ML IV SCH (12:02)
--- NOTE | 2019-04-24 12:16 | NUR ---
SS following up with discharge planning. SS met with pt to discuss discharge planning. Pt reported that she is completely alone at home with no help. Pt reported that she is dependent on herself and will not be able to participate in outpatient services if she cannot walk. Pt reported that she completed Medicaid application and is Medicaid pending. Pt provided SS with copy of Medicaid application and is agreeable to Medicaid pending placement if found preferably in [place]. Referral phoned and faxed to [facility] in [place]. SS will continue to follow for discharge planning.
[2019-04-24] MEDS: GABAPENTIN 300 MG CAPSULE. PO SCH (13:24)
[2019-04-24 15:00] VITALS: BP 138/82
[2019-04-24 19:00] VITALS: BP 144/70
[2019-04-24] MEDS: ASPIRIN ENTERIC COATED 325 MG TABLET.DR. PO SCH (21:09)
[2019-04-24] MEDS: ATORVASTATIN CALCIUM 20 MG TABLET PO SCH (21:09)
[2019-04-24] MEDS: GABAPENTIN 400 MG CAPSULE. PO SCH (21:10)
[2019-04-24] MEDS: INSULIN GLARGINE SYRINGE. SQ SCH (21:17)
[2019-04-24 23:00] VITALS: BP 136/66
[2019-04-25 03:00] VITALS: BP 149/94
[2019-04-25] MEDS: MEROPENEM 1 GM in IV NORMAL SALINE 100ML 100 ML IV SCH ×3 (06:05→21:00)
[2019-04-25 06:15] LABS: BASO # 0.1 x10^3/uL (0.0-0.2); BASO % 1 % (0-3); EOS # 0.4 x10^3/uL (0.0-0.7); EOS % 6 % (0-3); HEMATOCRIT 40.6 % (36.0-47.0); HEMOGLOBIN 13.3 g/dL (12.0-15.5); LYMPH % 30 % (24-48); MEAN CORPUSCULAR HEMOGLOBIN 29 pg (25-35); MEAN CORPUSCULAR HGB CONC 33 g/dL (31-37); MEAN CORPUSCULAR VOLUME 88 fL (79-100); MONO # 0.7 x10^3/uL (0.0-1.1); MONO % 11 % (0-9); NEUT # 3.6 x10^3/uL (1.8-7.7); NEUT % 53 % (31-73); PLATELET COUNT 251 x10^3/uL (140-400); RED BLOOD COUNT 4.61 x10^6/uL (3.50-5.40); RED CELL DISTRIBUTION WIDTH 17.3 % (11.5-14.5); WHITE BLOOD COUNT 6.7 x10^3/uL (4.0-11.0)
[2019-04-25 06:37] LABS: ALBUMIN 2.7 g/dL (3.4-5.0); ALBUMIN/GLOBULIN RATIO 0.6 (1.0-1.7); CALCIUM 9.6 mg/dL (8.5-10.1); CREATININE 0.7 mg/dL (0.6-1.0); GFR 85.9; POTASSIUM 4.6 mmol/L (3.5-5.1); TOTAL BILIRUBIN 0.4 mg/dL (0.2-1.0); TOTAL PROTEIN 6.9 g/dL (6.4-8.2)
[2019-04-25 07:00] VITALS: BP 152/69
[2019-04-25] MEDS: INSULIN LISPRO 300 UNITS/3 ML VIAL. SQ SCH ×6 (08:00→17:42)
[2019-04-25] MEDS: HYDROcodone/APAP 5/325MG 1 TAB TABLET PO PRN ×3 (08:28→21:00)
[2019-04-25] MEDS: FUROSEMIDE 40 MG TABLET. PO SCH (08:28)
[2019-04-25] MEDS: LACTOBACILLUS RHAMNOSUS GG 1 CAPSULE. PO SCH ×2 (08:28→20:59)
[2019-04-25] MEDS: GABAPENTIN 300 MG CAPSULE. PO SCH ×2 (08:28→14:26)
--- NOTE | 2019-04-25 10:11 | PDOC ---
[employer] PROGRESS NOTE Chief Complaint Chief Complaint 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 s/p amputation, 04/10, then partial excision MT and excisional debridement surroundin g necrotic tissue, 04/14 then I and D below fascia w/ tendon involvement on 04/20. cultures no growth ALISIA - better, was 2/2 vasomotor nephropathy Cephalexin allergy -swelling and throat closing Leukocytosis - now s/p steroids prior to surgery, improved Yeast skin Right plantar and heel wound s/p debridement devitalized dermis, 04/14 DM with hgba1c 9.7 and neuropathy and target organ damage - hx osteo, partial amputation big toe Obesity, morbid BMI 53 HTN - controlled Lymphedema Hyperkalemia 5.5 - improved Diastolic CHF echo 55% Left rotator cuff calcific tendinopathy. Severe protein-caloric malnutrition PULMONARY HYPERTENSION PA pressure 50 History of Present Illness History of Present Illness 04/25/19 Pt seen and examined at bedside Not in acute distress PICC line on right arm Still reports pain Wound dressing intact and dry Charts and labs reviewed BUN was 25, down from 35 Cr remains 0.7 D/w RN 04/24/19 Pt seen and examined at bedside Pt was pleasant and not in acute distress Wound vac dry Discussed care plan with pt Chart and labs reviewed D/w RN 04/23/19 Pt seen and examined by Dr. Correa Long discussion with her about losing weight, HELPING Herself turn q2 and HELPING herself do the bed pain herself - she had lots of complaints/issues earlier on about her care - seems to not be a highlight of her stay anymore 04/21: K 5.,5 - extra lasix 20 IVP now Easily aroused. Has had some low blood glucose over the past 24 hours. Discussed changing her 26 units scheduled to 22u. Pain reasonably controlled. No SOB or CP. Procedure Hx 04/10 Left 3rd toe amputation at the metatarsal 04/14 Left foot partial excision 3rd metatarsal with debridement of foot. Right foot debridement of open wounds plantar surface and toes 04/20 I&D with tendon involvement left foot with wound vac Vitals/I&O Vitals/I&O: Vital Signs Date Time Temp Pulse Resp B/P (MAP) Pulse Ox O2 Delivery O2 Flow Rate FiO2 04/25/19 09:30 Nasal Cannula 3.0 04/25/19 07:00 98.1 63 18 152/69 (96 89 98.1 I & O 04/24/19 04/24/19 04/25/19 15:00 23:00 07:00 Intake Total 620 ml 400 ml 360 ml Output Total 2600 ml Balance 620 ml -2200 ml 360 ml Physical Exam Physical Exam: GENERAL: Propped up in bed, alert, NAD - in chair currently HEENT: Oral cavity, pharynx clear. NECK: Supple LUNGS: Clear to auscultation bilaterally HEART: S1, S2. ABDOMEN: Morbidly obese, soft, nontender EXTREMITIES: Right 3rd toe bandaged, dry. Left foot wound vac in place. Venous stasis b/l up to barron SKIN: warm to touch NEUROLOGIC: Alert, nonfocal. RUE- PICC clean General: Alert, Oriented X3, Cooperative, No acute distress Heart: Regular rate, Normal S1, Normal S2, No murmurs Lungs: Clear Abdomen: Normal bowel sounds, Soft, No tenderness Extremities: No clubbing, No cyanosis, Other (left leg dressing, rt leg dressing, amputated toe wound vac PLANTAR ASPECT SWOLLEN) Skin: Other (left foot wound with wound vac and right foot wound) Labs Labs: Laboratory Tests Test 04/24/19 11:31 04/24/19 16:37 04/24/19 20:29 04/25/19 06:00 Glucose (Fingerstick) 151 mg/dL (70-99) 138 mg/dL (70-99) 176 mg/dL (70-99) White Blood Count 6.7 x10^3/uL (4.0-11.0) Red Blood Count 4.61 x10^6/uL (3.50-5.40) Hemoglobin 13.3 g/dL (12.0-15.5) Hematocrit 40.6 % (36.0-47.0) Mean Corpuscular Volume 88 fL (79-100) Mean Corpuscular Hemoglobin 29 pg (25-35) Mean Corpuscular Hemoglobin Concent 33 g/dL (31-37) Red Cell Distribution Width 17.3 % (11.5-14.5) Platelet Count 251 x10^3/uL (140-400) Neutrophils (%) (Auto) 53 % (31-73) Lymphocytes (%) (Auto) 30 % (24-48) Monocytes (%) (Auto) 11 % (0-9) Eosinophils (%) (Auto) 6 % (0-3) Basophils (%) (Auto) 1 % (0-3) Neutrophils # (Auto) 3.6 x10^3/uL (1.8-7.7) Lymphocytes # (Auto) 2.0 x10^3/uL (1.0-4.8) Monocytes # (Auto) 0.7 x10^3/uL (0.0-1.1) Eosinophils # (Auto) 0.4 x10^3/uL (0.0-0.7) Basophils # (Auto) 0.1 x10^3/uL (0.0-0.2) Sodium Level 141 mmol/L (136-145) Potassium Level 4.6 mmol/L (3.5-5.1) Chloride Level 102 mmol/L (98-107) Carbon Dioxide Level 36 mmol/L (21-32) Anion Gap 3 (6-14) Blood Urea Nitrogen 25 mg/dL (7-20) Creatinine 0.7 mg/dL (0.6-1.0) Estimated GFR (Cockcroft-Gault) 85.9 BUN/Creatinine Ratio 36 (6-20) Glucose Level 136 mg/dL (70-99) Calcium Level 9.6 mg/dL (8.5-10.1) Total Bilirubin 0.4 mg/dL (0.2-1.0) Aspartate Amino Transf (AST/SGOT) 11 U/L (15-37) Alanine Aminotransferase (ALT/SGPT) 31 U/L (14-59) Alkaline Phosphatase 104 U/L (46-116) Total Protein 6.9 g/dL (6.4-8.2) Albumin 2.7 g/dL (3.4-5.0) Albumin/Globulin Ratio 0.6 (1.0-1.7) Test 04/25/19 07:22 Glucose (Fingerstick) 141 mg/dL (70-99) Review of Systems Review of Systems: Pt co pain Pt co numbness and tingling Pt denies fever Assessment and Plan Assessmemt and Plan Assessment Left 3rd toe osteomyelitis - infection - despite amoxicillin/Clinda. s/p amputation, 04/10, then partial excision MT and excisional debridement surrounding necrotic tissue, 04/14 then I and D below fascia w/ tendon i nvolvement on 04/20. cultures no growth Right plantar wound s/p debridement devitalized dermis, 04/14 ALISIA DM Obesity HTN Lymphedema Hyperkalemia Diastolic CHF Left rotator cuff calcific tendinopathy. Pulmonary HTN Plan Discharge disposition pending IV abx per ID IV abx at [place] in the future Wound care DVT prophylaxis Home meds Full code Encourage weight loss Comment Review of Relevant I have reviewed the following items adrienne (where applicable) has been applied. EWELINA GUZMAN III DO Apr 25, 2019 10:11
--- NOTE | 2019-04-25 10:36 | PDOC ---
ORTHO PROGRESS NOTES Subjective Patient states feeling well today with mild complaint of pain in feet. Procedure 04/10 Left 3rd toe amputation at the metatarsal 04/14 Left foot partial excision 3rd metatarsal with debridement of foot. Right foot debridement of open wounds plantar surface and toes 04/20 I&D with tendon involvement left foot with wound vac Vitals Vital Signs Date Time Temp Pulse Resp B/P (MAP) Pulse Ox O2 Delivery O2 Flow Rate FiO2 04/25/19 09:30 Nasal Cannula 3.0 04/25/19 07:00 98.1 63 18 152/69 (96) 89 98.1 Labs Laboratory Tests Test 04/23/19 11:26 04/23/19 16:13 04/23/19 20:34 04/24/19 07:42 Glucose (Fingerstick) 125 mg/dL (70-99) 89 mg/dL (70-99) 130 mg/dL (70-99) 109 mg/dL (70-99) Test 04/24/19 11:31 04/24/19 16:37 04/24/19 20:29 04/25/19 06:00 Glucose (Fingerstick) 151 mg/dL (70-99) 138 mg/dL (70-99) 176 mg/dL (70-99) White Blood Count 6.7 x10^3/uL (4.0-11.0) Red Blood Count 4.61 x10^6/uL (3.50-5.40) Hemoglobin 13.3 g/dL (12.0-15.5) Hematocrit 40.6 % (36.0-47.0) Mean Corpuscular Volume 88 fL (79-100) Mean Corpuscular Hemoglobin 29 pg (25-35) Mean Corpuscular Hemoglobin Concent 33 g/dL (31-37) Red Cell Distribution Width 17.3 % (11.5-14.5) Platelet Count 251 x10^3/uL (140-400) Neutrophils (%) (Auto) 53 % (31-73) Lymphocytes (%) (Auto) 30 % (24-48) Monocytes (%) (Auto) 11 % (0-9) Eosinophils (%) (Auto) 6 % (0-3) Basophils (%) (Auto) 1 % (0-3) Neutrophils # (Auto) 3.6 x10^3/uL (1.8-7.7) Lymphocytes # (Auto) 2.0 x10^3/uL (1.0-4.8) Monocytes # (Auto) 0.7 x10^3/uL (0.0-1.1) Eosinophils # (Auto) 0.4 x10^3/uL (0.0-0.7) Basophils # (Auto) 0.1 x10^3/uL (0.0-0.2) Sodium Level 141 mmol/L (136-145) Potassium Level 4.6 mmol/L (3.5-5.1) Chloride Level 102 mmol/L (98-107) Carbon Dioxide Level 36 mmol/L (21-32) Anion Gap 3 (6-14) Blood Urea Nitrogen 25 mg/dL (7-20) Creatinine 0.7 mg/dL (0.6-1.0) Estimated GFR (Cockcroft-Gault) 85.9 BUN/Creatinine Ratio 36 (6-20) Glucose Level 136 mg/dL (70-99) Calcium Level 9.6 mg/dL (8.5-10.1) Total Bilirubin 0.4 mg/dL (0.2-1.0) Aspartate Amino Transf (AST/SGOT) 11 U/L (15-37) Alanine Aminotransferase (ALT/SGPT) 31 U/L (14-59) Alkaline Phosphatase 104 U/L (46-116) Total Protein 6.9 g/dL (6.4-8.2) Albumin 2.7 g/dL (3.4-5.0) Albumin/Globulin Ratio 0.6 (1.0-1.7) Test 04/25/19 07:22 Glucose (Fingerstick) 141 mg/dL (70-99) Laboratory Tests Test 04/24/19 11:31 04/24/19 16:37 04/24/19 20:29 04/25/19 06:00 Glucose (Fingerstick) 151 mg/dL (70-99) 138 mg/dL (70-99) 176 mg/dL (70-99) White Blood Count 6.7 x10^3/uL (4.0-11.0) Red Blood Count 4.61 x10^6/uL (3.50-5.40) Hemoglobin 13.3 g/dL (12.0-15.5) Hematocrit 40.6 % (36.0-47.0) Mean Corpuscular Volume 88 fL (79-100) Mean Corpuscular Hemoglobin 29 pg (25-35) Mean Corpuscular Hemoglobin Concent 33 g/dL (31-37) Red Cell Distribution Width 17.3 % (11.5-14.5) Platelet Count 251 x10^3/uL (140-400) Neutrophils (%) (Auto) 53 % (31-73) Lymphocytes (%) (Auto) 30 % (24-48) Monocytes (%) (Auto) 11 % (0-9) Eosinophils (%) (Auto) 6 % (0-3) Basophils (%) (Auto) 1 % (0-3) Neutrophils # (Auto) 3.6 x10^3/uL (1.8-7.7) Lymphocytes # (Auto) 2.0 x10^3/uL (1.0-4.8) Monocytes # (Auto) 0.7 x10^3/uL (0.0-1.1) Eosinophils # (Auto) 0.4 x10^3/uL (0.0-0.7) Basophils # (Auto) 0.1 x10^3/uL (0.0-0.2) Sodium Level 141 mmol/L (136-145) Potassium Level 4.6 mmol/L (3.5-5.1) Chloride Level 102 mmol/L (98-107) Carbon Dioxide Level 36 mmol/L (21-32) Anion Gap 3 (6-14) Blood Urea Nitrogen 25 mg/dL (7-20) Creatinine 0.7 mg/dL (0.6-1.0) Estimated GFR (Cockcroft-Gault) 85.9 BUN/Creatinine Ratio 36 (6-20) Glucose Level 136 mg/dL (70-99) Calcium Level 9.6 mg/dL (8.5-10.1) Total Bilirubin 0.4 mg/dL (0.2-1.0) Aspartate Amino Transf (AST/SGOT) 11 U/L (15-37) Alanine Aminotransferase (ALT/SGPT) 31 U/L (14-59) Alkaline Phosphatase 104 U/L (46-116) Total Protein 6.9 g/dL (6.4-8.2) Albumin 2.7 g/dL (3.4-5.0) Albumin/Globulin Ratio 0.6 (1.0-1.7) Test 04/25/19 07:22 Glucose (Fingerstick) 141 mg/dL (70-99) Notes awake and alert Assessment and Plan S/P multiple surgeries bilateral feet for non healing wounds r/t neuropathy Wound vac in place left foot dressing intact right foot Wound care to change dressings and can report findings to MIRIAM Murillo APRN Apr 25, 2019 10:36
[2019-04-25 11:00] VITALS: BP 127/60
[2019-04-25] MEDS: FLUCONAZOLE 200MG/100ML PREMIX 100 ML IV SCH (12:30)
--- NOTE | 2019-04-25 12:37 | NUR ---
SS following up with discharge planning. [facility] in [place] declined for Medicaid pending. cyber intel planner, Tarsha Marshall, phoned and faxed referrals to [facility], [facility], [facility] , and [facility] . SS will await acceptance decisions and will proceed accordingly. Pt is attempting to find transportation at home for transport to [facility] for wound care and IV abx in the event that placement cannot be found. SS will continue to follow for discharge planning.
--- NOTE | 2019-04-25 14:06 | PDOC ---
Infectious Disease Note Subjective Subjective Comfortable No F/C/N/V/SOA ROS ROS per HPI Vital Sign Vital Signs Vital Signs Date Time Temp Pulse Resp B/P (MAP) Pulse Ox O2 Delivery O2 Flow Rate FiO2 04/25/19 12:29 Room Air 04/25/19 11:00 98.4 67 18 127/60 (82) 95 2.0 98.4 Physical Exam PHYSICAL EXAM GENERAL: In chair, sorting through the her mail HEENT: Oral cavity, pharynx clear. NECK: Supple LUNGS: Clear to auscultation bilaterally HEART: S1, S2. ABDOMEN: Morbidly obese, soft, nontender EXTREMITIES: Right 3rd toe bandaged, dry. Left foot wound vac in place. Venous stasis b/l up to barron SKIN: warm to touch NEUROLOGIC: Alert, nonfocal. [facility] clean Labs Lab Laboratory Tests Test 04/24/19 16:37 04/24/19 20:29 04/25/19 06:00 04/25/19 07:22 Glucose (Fingerstick) 138 mg/dL (70-99) 176 mg/dL (70-99) 141 mg/dL (70-99) White Blood Count 6.7 x10^3/uL (4.0-11.0) Red Blood Count 4.61 x10^6/uL (3.50-5.40) Hemoglobin 13.3 g/dL (12.0-15.5) Hematocrit 40.6 % (36.0-47.0) Mean Corpuscular Volume 88 fL (79-100) Mean Corpuscular Hemoglobin 29 pg (25-35) Mean Corpuscular Hemoglobin Concent 33 g/dL (31-37) Red Cell Distribution Width 17.3 % (11.5-14.5) Platelet Count 251 x10^3/uL (140-400) Neutrophils (%) (Auto) 53 % (31-73) Lymphocytes (%) (Auto) 30 % (24-48) Monocytes (%) (Auto) 11 % (0-9) Eosinophils (%) (Auto) 6 % (0-3) Basophils (%) (Auto) 1 % (0-3) Neutrophils # (Auto) 3.6 x10^3/uL (1.8-7.7) Lymphocytes # (Auto) 2.0 x10^3/uL (1.0-4.8) Monocytes # (Auto) 0.7 x10^3/uL (0.0-1.1) Eosinophils # (Auto) 0.4 x10^3/uL (0.0-0.7) Basophils # (Auto) 0.1 x10^3/uL (0.0-0.2) Sodium Level 141 mmol/L (136-145) Potassium Level 4.6 mmol/L (3.5-5.1) Chloride Level 102 mmol/L (98-107) Carbon Dioxide Level 36 mmol/L (21-32) Anion Gap 3 (6-14) Blood Urea Nitrogen 25 mg/dL (7-20) Creatinine 0.7 mg/dL (0.6-1.0) Estimated GFR (Cockcroft-Gault) 85.9 BUN/Creatinine Ratio 36 (6-20) Glucose Level 136 mg/dL (70-99) Calcium Level 9.6 mg/dL (8.5-10.1) Total Bilirubin 0.4 mg/dL (0.2-1.0) Aspartate Amino Transf (AST/SGOT) 11 U/L (15-37) Alanine Aminotransferase (ALT/SGPT) 31 U/L (14-59) Alkaline Phosphatase 104 U/L (46-116) Total Protein 6.9 g/dL (6.4-8.2) Albumin 2.7 g/dL (3.4-5.0) Albumin/Globulin Ratio 0.6 (1.0-1.7) Test 04/25/19 10:52 Glucose (Fingerstick) 138 mg/dL (70-99) Micro 04/20. ANAEROBIC RES 1 Preliminary No anaerobes recovered in 48 hours. AEROBIC CULT Final Preliminary report Final report AEROBIC RES 1 Final Comment No growth in 36 - 48 hours. No growth in 56 - 72 hours. GRAM STAIN RES 1 Final Comment No white blood cells seen. 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 s/p amputation, 04/10, then partial excision MT and excisional debridement surrounding necrotic tissue, 04/14 then I and D below fascia w/ tendon involvement on 04/20. cultures no growth ALISIA - better Cephalexin allergy -swelling and throat closing Leukocytosis - now s/p steroids prior to surgery, improved Yeast skin Dm Right plantar wound s/p debridement devitalized dermis, 04/14 Plan Plan of Care Meropenem and fluconazole (04/10) off dapto Probiotics Cultures neg Wound care as directed D/w nursing d/w Dr. Sandoval who plans on closing wound 04/27 Attending Co-Sign Attending Co-Sign The patient was seen and interviewed as well as examined at the bedside. The chart was reviewed. The case was discussed. Agree with the plan of care. BRISA LUCIA APRN Apr 25, 2019 14:06 MEG BURNS MD Apr 25, 2019 16:41
--- NOTE | 2019-04-25 14:14 | NUR ---
Wound care: Patient seen per wound care follow up for wound vac dressing change and wound dressing changes. Dressings removed and wounds cleansed, assessed, measured, and pictured. Patient has DFUs to the right plantar foot, right 3rd toe, and left foot. Skin prepped and one piece of silver foam placed to wound bed, the vac is tracked up the left medial leg. A good seal maintained at 125mmHg continuous. To the right 3rd toe and right plantar foot redressed with Xeroform gauze and telfa dressing. No other wounds noted upon full skin inspection. Will follow up for dressing changes on Tuesday04/25/19. Patient educated on blood sugar control, wound vac therapy, and offloading pressure to feet. Patient v/u but has history of noncompliance. Son at bedside. Patient in chair at this time and bilateral heels elevated. Call light in reach.
[2019-04-25] MEDS: fentaNYL PF VIAL 100 MCG/2 ML VIAL IV PRN (14:26)
[2019-04-25 15:00] VITALS: BP 131/59
[2019-04-25 19:00] VITALS: BP 147/69
[2019-04-25] MEDS: ATORVASTATIN CALCIUM 20 MG TABLET PO SCH (20:59)
[2019-04-25] MEDS: ASPIRIN ENTERIC COATED 325 MG TABLET.DR. PO SCH (20:59)
[2019-04-25] MEDS: GABAPENTIN 400 MG CAPSULE. PO SCH (20:59)
[2019-04-25] MEDS: INSULIN GLARGINE SYRINGE. SQ SCH (21:13)
[2019-04-25 23:00] VITALS: BP 129/62
[2019-04-26 03:00] VITALS: BP 148/67
[2019-04-26] MEDS: HYDROcodone/APAP 5/325MG 1 TAB TABLET PO PRN ×4 (03:00→21:13)
[2019-04-26] MEDS: MEROPENEM 1 GM in IV NORMAL SALINE 100ML 100 ML IV SCH ×3 (06:04→21:15)
[2019-04-26 06:26] LABS: BASO # 0.1 x10^3/uL (0.0-0.2); BASO % 1 % (0-3); EOS # 0.4 x10^3/uL (0.0-0.7); EOS % 6 % (0-3); HEMATOCRIT 39.1 % (36.0-47.0); HEMOGLOBIN 12.9 g/dL (12.0-15.5); LYMPH % 34 % (24-48); MEAN CORPUSCULAR HEMOGLOBIN 29 pg (25-35); MEAN CORPUSCULAR HGB CONC 33 g/dL (31-37); MEAN CORPUSCULAR VOLUME 88 fL (79-100); MONO # 0.7 x10^3/uL (0.0-1.1); MONO % 12 % (0-9); NEUT # 2.9 x10^3/uL (1.8-7.7); NEUT % 48 % (31-73); PLATELET COUNT 259 x10^3/uL (140-400); RED BLOOD COUNT 4.46 x10^6/uL (3.50-5.40); RED CELL DISTRIBUTION WIDTH 17.2 % (11.5-14.5)
[2019-04-26 06:35] LABS: ALBUMIN 2.7 g/dL (3.4-5.0); ALBUMIN/GLOBULIN RATIO 0.7 (1.0-1.7); CALCIUM 9.6 mg/dL (8.5-10.1); CREATININE 0.6 mg/dL (0.6-1.0); GFR 102.7; POTASSIUM 4.5 mmol/L (3.5-5.1); TOTAL BILIRUBIN 0.4 mg/dL (0.2-1.0); TOTAL PROTEIN 6.8 g/dL (6.4-8.2)
[2019-04-26 07:00] VITALS: BP 149/64
[2019-04-26] MEDS: INSULIN LISPRO 300 UNITS/3 ML VIAL. SQ SCH ×6 (08:00→17:16)
[2019-04-26] MEDS: LACTOBACILLUS RHAMNOSUS GG 1 CAPSULE. PO SCH ×2 (08:13→21:13)
[2019-04-26] MEDS: GABAPENTIN 300 MG CAPSULE. PO SCH ×2 (08:13→13:39)
[2019-04-26] MEDS: FUROSEMIDE 40 MG TABLET. PO SCH (08:13)
--- NOTE | 2019-04-26 08:26 | PDOC ---
PROGRESS NOTES Chief Complaint Chief Complaint 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 s/p amputation, 04/10, then partial excision MT and excisional debridement surrounding necrotic tissue, 04/14 then I and D below fascia w/ tendon involvement on 04/20. cultures no growth ALISIA - better, was 2/2 vasomotor nephropathy Cephalexin allergy -swelling and throat closing Leukocytosis - now s/p steroids prior to surgery, improved Yeast skin Right plantar and heel wound s/p debridement devitalized dermis, 04/14 DM with [id number] 9.7 and neuropathy and target organ damage - hx osteo, partial amputation big toe Obesity, morbid BMI 53 HTN - controlled Lymphedema Hyperkalemia 5.5 - improved Diastolic CHF echo 55% Left rotator cuff calcific tendinopathy. Severe protein-caloric malnutrition PULMONARY HYPERTENSION PA pressure 50 History of Present Illness History of Present Illness 04/26/19 Seen and examined. Still in pain, reasonably controlled. Plan for OR closure tomorrow. She is trying to be placed in SNF. 04/25/19 Pt seen and examined at bedside Not in acute distress PICC line on right arm Still reports pain Wound dressing intact and dry Charts and labs reviewed BUN was 25, down from 35 Cr remains 0.7 D/w RN 04/24/19 Pt seen and examined at bedside Pt was pleasant and not in acute distress Wound vac dry Discussed care plan with pt Chart and labs reviewed D/w RN 04/23/19 Pt seen and examined by Dr. Alejo Long discussion with her about losing weight, HELPING Herself turn q2 and HELPING herself do the bed pain herself - she had lots of complaints/issues earlier on about her care - seems to not be a highlight of her stay anymore 04/21: K 5.,5 - extra lasix 20 IVP now Easily aroused. Has had some low blood glucose over the past 24 hours. Discussed changing her 26 units scheduled to 22u. Pain reasonably controlled. No SOB or CP. Procedure Hx 04/10 Left 3rd toe amputation at the metatarsal 04/14 Left foot partial excision 3rd metatarsal with debridement of foot. Right foot debridement of open wounds plantar surface and toes 04/20 I&D with tendon involvement left foot with wound vac Vitals Vitals Vital Signs Date Time Temp Pulse Resp B/P (MAP) Pulse Ox O2 Delivery O2 Flow Rate FiO2 04/26/19 07:00 97.6 64 16 149/64 (92) 94 Room Air 97.6 04/25/19 11:00 2.0 Physical Exam Physical Exam GENERAL: In chair, sorting through the her mail HEENT: Oral cavity, pharynx clear. NECK: Supple LUNGS: Clear to auscultation bilaterally HEART: S1, S2. ABDOMEN: Morbidly obese, soft, nontender EXTREMITIES: Right 3rd toe bandaged, dry. Left foot wound vac in place. Venous stasis b/l up to barron SKIN: warm to touch NEUROLOGIC: Alert, nonfocal. RUE- PICC clean General: Alert, Oriented X3, Cooperative, No acute distress Heart: Regular rate, Normal S1, Normal S2, No murmurs Lungs: Clear Abdomen: Normal bowel sounds, Soft, No tenderness Extremities: No clubbing, No cyanosis, Other (left leg dressing, rt leg dressing, amputated toe wound vac PLANTAR ASPECT SWOLLEN) Skin: Other (left foot wound with wound vac and right foot wound) Labs LABS Laboratory Tests Test 04/25/19 10:52 04/25/19 15:50 04/25/19 20:21 04/26/19 06:10 Glucose (Fingerstick) 138 mg/dL (70-99) 153 mg/dL (70-99) 154 mg/dL (70-99) White Blood Count 6.0 x10^3/uL (4.0-11.0) Red Blood Count 4.46 x10^6/uL (3.50-5.40) Hemoglobin 12.9 g/dL (12.0-15.5) Hematocrit 39.1 % (36.0-47.0) Mean Corpuscular Volume 88 fL (79-100) Mean Corpuscular Hemoglobin 29 pg (25-35) Mean Corpuscular Hemoglobin Concent 33 g/dL (31-37) Red Cell Distribution Width 17.2 % (11.5-14.5) Platelet Count 259 x10^3/uL (140-400) Neutrophils (%) (Auto) 48 % (31-73) Lymphocytes (%) (Auto) 34 % (24-48) Monocytes (%) (Auto) 12 % (0-9) Eosinophils (%) (Auto) 6 % (0-3) Basophils (%) (Auto) 1 % (0-3) Neutrophils # (Auto) 2.9 x10^3/uL (1.8-7.7) Lymphocytes # (Auto) 2.0 x10^3/uL (1.0-4.8) Monocytes # (Auto) 0.7 x10^3/uL (0.0-1.1) Eosinophils # (Auto) 0.4 x10^3/uL (0.0-0.7) Basophils # (Auto) 0.1 x10^3/uL (0.0-0.2) Sodium Level 139 mmol/L (136-145) Potassium Level 4.5 mmol/L (3.5-5.1) Chloride Level 102 mmol/L (98-107) Carbon Dioxide Level 34 mmol/L (21-32) Anion Gap 3 (6-14) Blood Urea Nitrogen 24 mg/dL (7-20) Creatinine 0.6 mg/dL (0.6-1.0) Estimated GFR (Cockcroft-Gault) 102.7 BUN/Creatinine Ratio 40 (6-20) Glucose Level 146 mg/dL (70-99) Calcium Level 9.6 mg/dL (8.5-10.1) Total Bilirubin 0.4 mg/dL (0.2-1.0) Aspartate Amino Transf (AST/SGOT) 11 U/L (15-37) Alanine Aminotransferase (ALT/SGPT) 30 U/L (14-59) Alkaline Phosphatase 101 U/L (46-116) Total Protein 6.8 g/dL (6.4-8.2) Albumin 2.7 g/dL (3.4-5.0) Albumin/Globulin Ratio 0.7 (1.0-1.7) Test 04/26/19 07:28 Glucose (Fingerstick) 137 mg/dL (70-99) Comment Review of Relevant I have reviewed the following items adrienne (where applicable) has been applied. Labs Laboratory Tests Test 04/24/19 11:31 04/24/19 16:37 04/24/19 20:29 04/25/19 06:00 Glucose (Fingerstick) 151 mg/dL (70-99) 138 mg/dL (70-99) 176 mg/dL (70-99) White Blood Count 6.7 x10^3/uL (4.0-11.0) Red Blood Count 4.61 x10^6/uL (3.50-5.40) Hemoglobin 13.3 g/dL (12.0-15.5) Hematocrit 40.6 % (36.0-47.0) Mean Corpuscular Volume 88 fL (79-100) Mean Corpuscular Hemoglobin 29 pg (25-35) Mean Corpuscular Hemoglobin Concent 33 g/dL (31-37) Red Cell Distribution Width 17.3 % (11.5-14.5) Platelet Count 251 x10^3/uL (140-400) Neutrophils (%) (Auto) 53 % (31-73) Lymphocytes (%) (Auto) 30 % (24-48) Monocytes (%) (Auto) 11 % (0-9) Eosinophils (%) (Auto) 6 % (0-3) Basophils (%) (Auto) 1 % (0-3) Neutrophils # (Auto) 3.6 x10^3/uL (1.8-7.7) Lymphocytes # (Auto) 2.0 x10^3/uL (1.0-4.8) Monocytes # (Auto) 0.7 x10^3/uL (0.0-1.1) Eosinophils # (Auto) 0.4 x10^3/uL (0.0-0.7) Basophils # (Auto) 0.1 x10^3/uL (0.0-0.2) Sodium Level 141 mmol/L (136-145) Potassium Level 4.6 mmol/L (3.5-5.1) Chloride Level 102 mmol/L (98-107) Carbon Dioxide Level 36 mmol/L (21-32) Anion Gap 3 (6-14) Blood Urea Nitrogen 25 mg/dL (7-20) Creatinine 0.7 mg/dL (0.6-1.0) Estimated GFR (Cockcroft-Gault) 85.9 BUN/Creatinine Ratio 36 (6-20) Glucose Level 136 mg/dL (70-99) Calcium Level 9.6 mg/dL (8.5-10.1) Total Bilirubin 0.4 mg/dL (0.2-1.0) Aspartate Amino Transf (AST/SGOT) 11 U/L (15-37) Alanine Aminotransferase (ALT/SGPT) 31 U/L (14-59) Alkaline Phosphatase 104 U/L (46-116) Total Protein 6.9 g/dL (6.4-8.2) Albumin 2.7 g/dL (3.4-5.0) Albumin/Globulin Ratio 0.6 (1.0-1.7) Test 04/25/19 07:22 04/25/19 10:52 04/25/19 15:50 04/25/19 20:21 Glucose (Fingerstick) 141 mg/dL (70-99) 138 mg/dL (70-99) 153 mg/dL (70-99) 154 mg/dL (70-99) Test 04/26/19 06:10 04/26/19 07:28 White Blood Count 6.0 x10^3/uL (4.0-11.0) Red Blood Count 4.46 x10^6/uL (3.50-5.40) Hemoglobin 12.9 g/dL (12.0-15.5) Hematocrit 39.1 % (36.0-47.0) Mean Corpuscular Volume 88 fL (79-100) Mean Corpuscular Hemoglobin 29 pg (25-35) Mean Corpuscular Hemoglobin Concent 33 g/dL (31-37) Red Cell Distribution Width 17.2 % (11.5-14.5) Platelet Count 259 x10^3/uL (140-400) Neutrophils (%) (Auto) 48 % (31-73) Lymphocytes (%) (Auto) 34 % (24-48) Monocytes (%) (Auto) 12 % (0-9) Eosinophils (%) (Auto) 6 % (0-3) Basophils (%) (Auto) 1 % (0-3) Neutrophils # (Auto) 2.9 x10^3/uL (1.8-7.7) Lymphocytes # (Auto) 2.0 x10^3/uL (1.0-4.8) Monocytes # (Auto) 0.7 x10^3/uL (0.0-1.1) Eosinophils # (Auto) 0.4 x10^3/uL (0.0-0.7) Basophils # (Auto) 0.1 x10^3/uL (0.0-0.2) Sodium Level 139 mmol/L (136-145) Potassium Level 4.5 mmol/L (3.5-5.1) Chloride Level 102 mmol/L (98-107) Carbon Dioxide Level 34 mmol/L (21-32) Anion Gap 3 (6-14) Blood Urea Nitrogen 24 mg/dL (7-20) Creatinine 0.6 mg/dL (0.6-1.0) Estimated GFR (Cockcroft-Gault) 102.7 BUN/Creatinine Ratio 40 (6-20) Glucose Level 146 mg/dL (70-99) Calcium Level 9.6 mg/dL (8.5-10.1) Total Bilirubin 0.4 mg/dL (0.2-1.0) Aspartate Amino Transf (AST/SGOT) 11 U/L (15-37) Alanine Aminotransferase (ALT/SGPT) 30 U/L (14-59) Alkaline Phosphatase 101 U/L (46-116) Total Protein 6.8 g/dL (6.4-8.2) Albumin 2.7 g/dL (3.4-5.0) Albumin/Globulin Ratio 0.7 (1.0-1.7) Glucose (Fingerstick) 137 mg/dL (70-99) Laboratory Tests Test 04/25/19 10:52 04/25/19 15:50 04/25/19 20:21 04/26/19 06:10 Glucose (Fingerstick) 138 mg/dL (70-99) 153 mg/dL (70-99) 154 mg/dL (70-99) White Blood Count 6.0 x10^3/uL (4.0-11.0) Red Blood Count 4.46 x10^6/uL (3.50-5.40) Hemoglobin 12.9 g/dL (12.0-15.5) Hematocrit 39.1 % (36.0-47.0) Mean Corpuscular Volume 88 fL (79-100) Mean Corpuscular Hemoglobin 29 pg (25-35) Mean Corpuscular Hemoglobin Concent 33 g/dL (31-37) Red Cell Distribution Width 17.2 % (11.5-14.5) Platelet Count 259 x10^3/uL (140-400) Neutrophils (%) (Auto) 48 % (31-73) Lymphocytes (%) (Auto) 34 % (24-48) Monocytes (%) (Auto) 12 % (0-9) Eosinophils (%) (Auto) 6 % (0-3) Basophils (%) (Auto) 1 % (0-3) Neutrophils # (Auto) 2.9 x10^3/uL (1.8-7.7) Lymphocytes # (Auto) 2.0 x10^3/uL (1.0-4.8) Monocytes # (Auto) 0.7 x10^3/uL (0.0-1.1) Eosinophils # (Auto) 0.4 x10^3/uL (0.0-0.7) Basophils # (Auto) 0.1 x10^3/uL (0.0-0.2) Sodium Level 139 mmol/L (136-145) Potassium Level 4.5 mmol/L (3.5-5.1) Chloride Level 102 mmol/L (98-107) Carbon Dioxide Level 34 mmol/L (21-32) Anion Gap 3 (6-14) Blood Urea Nitrogen 24 mg/dL (7-20) Creatinine 0.6 mg/dL (0.6-1.0) Estimated GFR (Cockcroft-Gault) 102.7 BUN/Creatinine Ratio 40 (6-20) Glucose Level 146 mg/dL (70-99) Calcium Level 9.6 mg/dL (8.5-10.1) Total Bilirubin 0.4 mg/dL (0.2-1.0) Aspartate Amino Transf (AST/SGOT) 11 U/L (15-37) Alanine Aminotransferase (ALT/SGPT) 30 U/L (14-59) Alkaline Phosphatase 101 U/L (46-116) Total Protein 6.8 g/dL (6.4-8.2) Albumin 2.7 g/dL (3.4-5.0) Albumin/Globulin Ratio 0.7 (1.0-1.7) Test 04/26/19 07:28 Glucose (Fingerstick) 137 mg/dL (70-99) Microbiology 04/20/19 Anaerobic/Aerobic Culture - Final, Complete 04/20/19 Anaerobic Culture Result 1 (DEANNE) - Final, Complete 04/20/19 Aerobic Culture - Final, Complete 04/20/19 Aerobic Culture Result 1 (DEANNE) - Final, Complete 04/20/19 Gram Stain - Final, Complete 04/20/19 Gram Stain Result 1 (DEANNE) - Final, Complete 04/20/19 Gram Stain Result 2 (DEANNE) - Final, Complete 04/10/19 Blood Culture - Final, Complete NO GROWTH AFTER 5 DAYS Medications Current Medications Vancomycin HCl (Vanco Per Pharmacy) 1 each PRN DAILY PRN MC SEE COMMENTS Last administered on 04/10/19at 03:41; Start 04/09/19 at 22:30; Stop 04/10/19 at 12:36; Status DC Piperacillin Sod/ Tazobactam Sod (Zosyn Per Pharmacy) 1 each PRN DAILY PRN MC SEE COMMENTS; Start 04/09/19 at 22:30; Stop 04/10/19 at 12:35; Status DC Sodium Chloride 1,000 ml @ 100 mls/hr Q10H IV Last administered on 04/11/19at 05:23; Start 04/09/19 at 23:00; Stop 04/11/19 at 09:26; Status DC Acetaminophen/ Hydrocodone Bitart (Lortab 5/325) 1 tab PRN Q4HRS PRN PO MODERATE PAIN 4-6 Last administered on 04/20/19at 13:21; Start 04/09/19 at 22:30 Acetaminophen/ Hydrocodone Bitart (Lortab 5/325) 2 tab PRN Q4HRS PRN PO SEVERE PAIN 7-10 Last administered on 04/26/19at 03:00; Start 04/09/19 at 22:30 Insulin Glargine (Lantus Syringe) 70 unit QHS SQ Last administered on 04/22/19at 20:35; Start 04/09/19 at 23:00; Stop 04/23/19 at 17:03; Status DC Insulin Human Lispro (HumaLOG) 20 units 1X ONCE SQ Last administered on 04/09/19at 23:02; Start 04/09/19 at 23:00; Stop 04/09/19 at 23:01; Status DC Insulin Human Lispro (HumaLOG) 0-7 UNITS TIDWMEALS SQ ; Start 04/10/19 at 08:00; Stop 04/10/19 at 08:08; Status DC Dextrose (Dextrose 50%-Water Syringe) 12.5 gm PRN Q15MIN PRN IV SEE COMMENTS; Start 04/09/19 at 22:30; Status Cancel Dextrose 250 ml PRN Q15MIN PRN IV SEE COMMENTS; Start 04/09/19 at 22:30; Status Cancel Insulin Human Lispro (HumaLOG) 26 units TIDAC SQ Last administered on 04/22/19at 17:45; Start 04/10/19 at 07:30; Stop 04/23/19 at 12:05; Status DC Piperacillin Sod/ Tazobactam Sod 3.375 gm/Sodium Chloride 50 ml @ 100 mls/hr Q6HRS IV Last administered on 04/10/19at 11:35; Start 04/10/19 at 00:00; Stop 04/10/19 at 12:35; Status DC Gabapentin (Neurontin) 900 mg [id number] PO Last administered on 04/25/19at 14:26; Start 04/10/19 at 09:00 Gabapentin (Neurontin) 1,200 mg HS PO Last administered on 04/25/19at 20:59; Start 04/10/19 at 21:00 Atenolol (Tenormin) 40 mg DAILY PO ; Start 04/10/19 at 09:00; Status UNV Vancomycin HCl 2 gm/Sodium Chloride 500 ml @ 250 mls/hr Q12H IV Last administered on 04/10/19at 05:20; Start 04/10/19 at 05:00; Stop 04/10/19 at 12:36; Status DC Vancomycin HCl (Vancomycin Trough Level) 1 each 1X ONCE MC ; Start 04/11/19 at 04:30; Stop 04/11/19 at 04:31; Status Cancel Insulin Human Lispro (HumaLOG) 0-9 UNITS TIDWMEALS SQ Last administered on 04/25/19at 17:41; Start 04/10/19 at 12:00 Dextrose (Dextrose 50%-Water Syringe) 12.5 gm PRN Q15MIN PRN IV SEE COMMENTS; Start 04/10/19 at 08:15 Dextrose 250 ml PRN Q15MIN PRN IV SEE COMMENTS; Start 04/10/19 at 08:15 Acetaminophen (Tylenol) 500 mg PRN Q6HRS PRN PO MILD PAIN / TEMP Last administered on 04/12/19at 13:04; Start 04/10/19 at 08:15 Ondansetron HCl (Zofran) 4 mg PRN Q6HRS PRN IV NAUSEA/VOMITING Last administered on 04/13/19at 12:24; Start 04/10/19 at 08:15 Fentanyl Citrate (Fentanyl 2ml Vial) 50 mcg PRN Q2HR PRN IV PAIN Last administered on 04/25/19at 14:26; Start 04/10/19 at 08:15 Sodium Chloride (Colo Saline Nasal) 1 nadeem PRN Q2HRS PRN NS NASAL CONGESTION Last administered on 04/10/19at 15:54; Start 04/10/19 at 11:45 Fluconazole/ Sodium Chloride 100 ml @ 100 mls/hr Q24H IV Last administered on 04/25/19at 12:30; Start 04/10/19 at 13:00 Meropenem 1 gm/ Sodium Chloride 100 ml @ 200 mls/hr Q8HRS IV Last administered on 04/26/19at 06:04; Start 04/10/19 at 14:00 Daptomycin 900 mg/ Sodium Chloride 50 ml @ 100 mls/hr Q24H IV Last administered on 04/16/19at 12:24; Start 04/10/19 at 13:00; Stop 04/17/19 at 10:05; Status DC Fentanyl Citrate (Fentanyl 2ml Vial) 25 mcg PRN Q5MIN PRN IV MILD PAIN 1-3; Start 04/10/19 at 13:15; Stop 04/11/19 at 11:49; Status DC Fentanyl Citrate (Fentanyl 2ml Vial) 50 mcg PRN Q5MIN PRN IV MODERATE TO SEVERE PAIN; Start 04/10/19 at 13:15; Stop 04/11/19 at 11:49; Status DC Morphine Sulfate (Morphine Sulfate) 1 mg PRN Q10MIN PRN IV SEVERE PAIN 7-10; Start 04/10/19 at 13:15; Stop 04/11/19 at 11:50; Status DC Ringer's Solution 1,000 ml @ 30 mls/hr Q24H IV ; Start 04/10/19 at 13:14; Stop 04/11/19 at 01:13; Status DC Hydromorphone HCl (Dilaudid) 0.5 mg PRN Q10MIN PRN IV SEV PAIN, Second choice; Start 04/10/19 at 13:15; Stop 04/11/19 at 11:50; Status DC Prochlorperazine Edisylate (Compazine) 5 mg PACU PRN PRN IV NAUSEA, MRX1; S tart 04/10/19 at 13:15; Stop 04/11/19 at 11:50; Status DC Fentanyl Citrate (Fentanyl 2ml Vial) 100 mcg STK-MED ONCE .ROUTE ; Start 04/10/19 at 13:20; Stop 04/10/19 at 13:21; Status DC Sevoflurane (Ultane) 30 ml STK-MED ONCE IH ; Start 04/10/19 at 13:20; Stop 04/10/19 at 13:21; Status DC Propofol 20 ml @ As Directed STK-MED ONCE IV ; Start 04/10/19 at 13:20; Stop 04/10/19 at 13:21; Status DC Dexamethasone Sodium Phosphate (Decadron) 4 mg STK-MED ONCE .ROUTE ; Start 04/10/19 at 13:21; Stop 04/10/19 at 13:21; Status DC Lidocaine HCl (Lidocaine Pf 2% Vial) 5 ml STK-MED ONCE .ROUTE ; Start 04/10/19 at 13:21; Stop 04/10/19 at 13:21; Status DC Ondansetron HCl (Zofran) 4 mg STK-MED ONCE .ROUTE ; Start 04/10/19 at 13:21; Stop 04/10/19 at 13:21; Status DC Phenylephrine HCl (PHENYLEPHRINE in 0.9% NACL PF) 1 mg STK-MED ONCE IV ; Start 04/10/19 at 14:27; Stop 04/10/19 at 14:27; Status DC Aspirin (Ecotrin) 325 mg QHS PO Last administered on 04/25/19at 20:59; Start 04/10/19 at 21:00 Oxycodone/ Acetaminophen (Percocet 5/325) 1 tab PRN Q4HRS PRN PO MODERATE PAIN, LAST OPTION Last administered on 04/14/19at 15:41; Start 04/10/19 at 15:15; Stop 04/15/19 at 16:17; Status DC Oxycodone/ Acetaminophen (Percocet 5/325) 2 tab PRN Q4HRS PRN PO SEVERE PAIN, LAST OPTION Last administered on 04/14/19at 20:33; Start 04/10/19 at 15:30; Stop 04/15/19 at 16:17; Status DC Insulin Glargine (Lantus Syringe) 30 unit DAILY SQ Last administered on 04/21/19 08:53; Start 04/11/19 at 09:00; Stop 04/21/19 at 20:11; Status DC Sodium Polystyrene Sulfonate (Kayexalate) 15 gm 1X ONCE PO Last administered on 04/11/19 10:24; Start 04/11/19 at 09:00; Stop 04/11/19 at 09:01; Status DC Meclizine HCl (Antivert) 12.5 mg PRN Q6HRS PRN PO DIZZINESS Last administered on 04/11/19at 10:24; Start 04/11/19 at 09:30 Albuterol Sulfate (Ventolin Neb Soln) 2.5 mg PRN Q4HRS PRN NEB SHORTNESS OF BREATH Last administered on 04/14/19 15:30; Start 04/11/19 at 10:45; Stop 04/14/19 at 15:46; Status DC Albuterol Sulfate (Ventolin Neb Soln) 2.5 mg 1X ONCE NEB Last administered on 04/11/19 11:54; Start 04/11/19 at 11:00; Stop 04/11/19 at 11:01; Status DC Lactobacillus Rhamnosus (Culturelle) 1 cap BID PO Last administered on 04/25/19 20:59; Start 04/11/19 at 12:00 Furosemide (Lasix) 40 mg 1X ONCE IVP Last administered on 04/11/19 20:18; Start 04/11/19 at 19:00; Stop 04/11/19 at 19:01; Status DC Perflutren Protein Type A Microsphe (Optison) 0.66 mg 1X ONCE IV ; Start 04/12/19 at 10:00; Stop 04/12/19 at 10:01; Status DC Furosemide (Lasix) 40 mg 1X ONCE IVP Last administered on 04/12/19 11:44; Start 04/12/19 at 10:45; Stop 04/12/19 at 10:49; Status DC Atenolol (Tenormin) 50 mg BID PO Last administered on 04/22/19 08:33; Start 04/13/19 at 14:00; Stop 04/22/19 at 08:54; Status DC Morphine Sulfate (Morphine Sulfate) 1 mg PRN Q10MIN PRN IV SEVERE PAIN 7-10; Start 04/14/19 at 07:00; Stop 04/15/19 at 06:59; Status DC Ringer's Solution 1,000 ml @ 30 mls/hr Q24H IV ; Start 04/14/19 at 07:00; Stop 04/14/19 at 18:59; Status DC Hydromorphone HCl (Dilaudid) 0.5 mg PRN Q10MIN PRN IV SEV PAIN, Second choice; Start 04/14/19 at 07:00; Stop 04/15/19 at 06:59; Status DC Prochlorperazine Edisylate (Compazine) 5 mg PACU PRN PRN IV NAUSEA, MRX1; Start 04/14/19 at 07:00; Stop 04/15/19 at 06:59; Status DC Furosemide (Lasix) 40 mg 1X ONCE IVP Last administered on 04/13/19at 17:35; Start 04/13/19 at 17:00; Stop 04/13/19 at 17:01; Status DC Furosemide (Lasix) 40 mg DAILY PO Last administered on 04/25/19at 08:28; Start 04/14/19 at 09:00 Atorvastatin Calcium (Lipitor) 20 mg QHS PO Last administered on 04/25/19at 20:59; Start 04/13/19 at 21:00 Insulin Human Lispro (HumaLOG) 3 units 1X ONCE SQ Last administered on 04/13/19at 20:44; Start 04/13/19 at 21:00; Stop 04/13/19 at 21:01; Status DC Propofol 20 ml @ As Directed STK-MED ONCE IV ; Start 04/14/19 at 07:35; Stop 04/14/19 at 07:36; Status DC Dexamethasone Sodium Phosphate (Decadron) 4 mg STK-MED ONCE .ROUTE ; Start 04/14/19 at 07:35; Stop 04/14/19 at 07:36; Status DC Lidocaine HCl (Lidocaine Pf 2% Vial) 5 ml STK-MED ONCE .ROUTE ; Start 04/14/19 at 07:35; Stop 04/14/19 at 07:36; Status DC Ondansetron HCl (Zofran) 4 mg STK-MED ONCE .ROUTE ; Start 04/14/19 at 07:35; Stop 04/14/19 at 07:36; Status DC Sevoflurane (Ultane) 60 ml STK-MED ONCE IH ; Start 04/14/19 at 07:36; Stop at 07:36; Status DC Sevoflurane (Ultane) 15 ml STK-MED ONCE IH ; Start 04/14/19 at 09:22; Stop 04/14/19 at 09:23; Status DC Morphine Sulfate (Morphine Sulfate) 1 mg PRN Q10MIN PRN IV SEVERE PAIN 7-10; Start 04/14/19 at 09:45; Stop 04/14/19 at 20:00; Status DC Ringer's Solution 1,000 ml @ 30 mls/hr Q24H IV ; Start 04/14/19 at 09:32; Stop 04/14/19 at 21:31; Status DC Hydromorphone HCl (Dilaudid) 0.5 mg PRN Q10MIN PRN IV SEV PAIN, Second choice Last administered on 04/14/19at 10:06; Start 04/14/19 at 09:45; Stop 04/14/19 at 20:00; Status DC Prochlorperazine Edisylate (Compazine) 5 mg PACU PRN PRN IV NAUSEA, MRX1; Start 04/14/19 at 09:45; Stop 04/14/19 at 20:00; Status DC Fentanyl Citrate (Fentanyl 2ml Vial) 100 mcg STK-MED ONCE .ROUTE ; Start at 09:33; Stop 04/14/19 at 09:33; Status DC Albuterol Sulfate (Ventolin Neb Soln) 2.5 mg RTQID NEB Last administered on 04/18/19at 07:20; Start 04/14/19 at 15:45; Stop 04/20/19 at 23:47; Status DC Morphine Sulfate (Morphine Sulfate) 1 mg PRN Q10MIN PRN IV SEVERE PAIN 7-10; Start 04/17/19 at 07:00; Stop 04/18/19 at 06:59; Status DC Ringer's Solution 1,000 ml @ 30 mls/hr Q24H IV ; Start 04/17/19 at 07:00; Stop 04/17/19 at 18:59; Status DC Lidocaine HCl (Xylocaine-Mpf 1% 2ml Vial) 2 ml PRN 1X PRN ID PRIOR TO IV START; Start 04/17/19 at 07:00; Stop 04/18/19 at 06:59; Status DC Hydromorphone HCl (Dilaudid) 0.5 mg PRN Q10MIN PRN IV SEV PAIN, Second choice; Start 04/17/19 at 07:00; Stop 04/18/19 at 06:59; Status DC Prochlorperazine Edisylate (Compazine) 5 mg PACU PRN PRN IV NAUSEA, MRX1; Start 04/17/19 at 07:00; Stop 04/18/19 at 06:59; Status DC Bupivacaine HCl/ Epinephrine Bitart (Sensorcaine-Epi 0.25%-1:[id number] Mpf) 30 ml 1X ONCE INJ ; Start 04/17/19 at 06:00; Stop 04/17/19 at 06:01; Status DC Gadoterate Meglumine (Dotarem) 29.8 ml 1X ONCE IVP Last administered on 04/17/19at 15:15; Start 04/17/19 at 15:00; Stop 04/17/19 at 15:06; Status DC Ondansetron HCl (Zofran) 4 mg PRN Q6HRS PRN IV NAUSEA/VOMITING; Start 04/20/19 at 07:00; Stop 04/21/19 at 06:59; Status DC Fentanyl Citrate (Fentanyl 2ml Vial) 25 mcg PRN Q5MIN PRN IV MILD PAIN 1-3; Start 04/20/19 at 07:00; Stop 04/21/19 at 06:59; Status DC Fentanyl Citrate (Fentanyl 2ml Vial) 50 mcg PRN Q5MIN PRN IV MODERATE TO SEVERE PAIN; Start 04/20/19 at 07:00; Stop 04/21/19 at 06:59; Status DC Morphine Sulfate (Morphine Sulfate) 1 mg PRN Q10MIN PRN IV SEVERE PAIN 7-10; Start 04/20/19 at 07:00; Stop 04/21/19 at 06:59; Status DC Ringer's Solution 1,000 ml @ 30 mls/hr Q24H IV Last administered on 04/20/19at 10:37; Start 04/20/19 at 07:00; Stop 04/20/19 at 18:59; Status DC Lidocaine HCl (Xylocaine-Mpf 1% 2ml Vial) 2 ml PRN 1X PRN ID PRIOR TO IV START; Start 04/20/19 at 07:00; Stop 04/21/19 at 06:59; Status DC Hydromorphone HCl (Dilaudid) 0.5 mg PRN Q10MIN PRN IV SEV PAIN, Second choice; Start 04/20/19 at 07:00; Stop 04/21/19 at 06:59; Status DC Prochlorperazine Edisylate (Compazine) 5 mg PACU PRN PRN IV NAUSEA, MRX1; Start 04/20/19 at 07:00; Stop 04/21/19 at 06:59; Status DC Bupivacaine HCl/ Epinephrine Bitart (Sensorcaine-Epi 0.25%-1:700234 Mpf) 30 ml 1X ONCE INJ ; Start 04/20/19 at 10:30; Stop 04/20/19 at 10:31; Status DC Sevoflurane (Ultane) 15 ml STK-MED ONCE IH ; Start 04/20/19 at 10:29; Stop 04/20/19 at 19:53; Status DC Fentanyl Citrate (Fentanyl 2ml Vial) 100 mcg STK-MED ONCE .ROUTE ; Start 04/20/19 at 10:29; Stop 04/20/19 at 19:53; Status DC Propofol 0 ml @ As Directed STK-MED ONCE IV ; Start 04/20/19 at 10:29; Stop 04/20/19 at 19:53; Status DC Lidocaine HCl (Lidocaine Pf 2% Vial) 5 ml STK-MED ONCE .ROUTE ; Start 04/20/19 at 10:29; Stop 04/20/19 at 19:53; Status DC Dexamethasone Sodium Phosphate (Decadron) 4 mg STK-MED ONCE .ROUTE ; Start 04/20/19 at 10:30; Stop 04/20/19 at 19:53; Status DC Ondansetron HCl (Zofran) 4 mg STK-MED ONCE .ROUTE ; Start 04/20/19 at 10:30; Stop 04/20/19 at 19:53; Status DC Phenylephrine HCl (PHENYLEPHRINE in 0.9% NACL PF) 1 mg STK-MED ONCE IV ; Start 04/20/19 at 10:30; Stop 04/20/19 at 19:53; Status DC Sevoflurane (Ultane) 60 ml STK-MED ONCE IH ; Start 04/20/19 at 10:37; Stop 04/20/19 at 19:53; Status DC Fentanyl Citrate (Fentanyl 2ml Vial) 100 mcg STK-MED ONCE .ROUTE ; Start 03/26 02/09 at 10:37; Stop 04/20/19 at 19:53; Status DC Propofol 20 ml @ As Directed STK-MED ONCE IV ; Start 04/20/19 at 10:38; Stop 04/20/19 at 19:53; Status DC Lidocaine HCl (Lidocaine Pf 2% Vial) 5 ml STK-MED ONCE .ROUTE ; Start 04/20/19 at 10:38; Stop 04/20/19 at 19:53; Status DC Ondansetron HCl (Zofran) 4 mg STK-MED ONCE .ROUTE ; Start 04/20/19 at 10:38; Stop 04/20/19 at 19:53; Status DC Dexamethasone Sodium Phosphate (Decadron) 4 mg STK-MED ONCE .ROUTE ; Start 04/20/19 at 10:38; Stop 04/20/19 at 19:53; Status DC Glycopyrrolate (Robinul) 1 mg STK-MED ONCE .ROUTE ; Start 04/20/19 at 11:10; Stop 04/20/19 at 19:53; Status DC Ephedrine Sulfate (ePHEDrine PF IN SALINE SYRINGE) 50 mg STK-MED ONCE IV ; Start 04/20/19 at 11:16; Stop 04/20/19 at 19:53; Status DC Fentanyl Citrate (Fentanyl 2ml Vial) 100 mcg STK-MED ONCE .ROUTE ; Start 04/20/19 at 12:16; Stop 04/20/19 at 19:53; Status DC Albuterol Sulfate (Ventolin Neb Soln) 2.5 mg PRN QID PRN NEB SHORTNESS OF BREATH; Start 04/21/19 at 08:00 Furosemide (Lasix) 20 mg 1X ONCE IVP Last administered on 04/21/19at 10:07; Start 04/21/19 at 09:30; Stop 04/21/19 at 09:32; Status DC Insulin Human Lispro (HumaLOG) 22 units TIDAC SQ Last administered on 04/23/19at 13:12; Start 04/23/19 at 12:09; Stop 04/23/19 at 17:03; Status DC Insulin Glargine (Lantus Syringe) 55 unit QHS SQ Last administered on 04/25/19at 21:13; Start 04/23/19 at 21:00 Insulin Human Lispro (HumaLOG) 15 units TIDAC SQ Last administered on 04/25/19at 17:42; Start 04/23/19 at 17:15 Active Scripts Active Reported Atenolol 50 Mg Tablet 1 Tab PO BID Vitals/I & O Vital Sign - Last 24 Hours 04/25/19 04/25/19 04/25/19 04/25/19 08:28 09:30 11:00 12:29 Temp 98.4 98.4 Pulse 67 Resp 18 B/P (MAP) 127/60 (82) Pulse Ox 95 O2 Delivery Room Air Nasal Cannula Nasal Cannula Room Air O2 Flow Rate 3.0 2.0 04/25/19 04/25/19 04/25/19 04/25/19 14:26 15:00 19:00 20:00 Temp 97.1 98.9 97.1 98.9 Pulse 75 76 Resp 18 18 B/P (MAP) 131/59 (83) 147/69 (95) Pulse Ox 90 92 O2 Delivery Room Air Room Air Room Air Room Air 04/25/19 04/25/19 04/25/19 04/26/19 21:00 22:00 23:00 03:00 Temp 98.8 98.8 Pulse 65 Resp 20 20 18 20 B/P (MAP) 129/62 (84) Pulse Ox 92 93 93 O2 Delivery Room Air Room Air Room Air Room Air 04/26/19 04/26/19 04/26/19 03:00 04:00 07:00 Temp 97.7 97.6 97.7 97.6 Pulse 67 64 Resp 18 18 16 B/P (MAP) 148/67 (94) 149/64 (92) Pulse Ox 94 93 94 O2 Delivery Room Air Room Air Room Air Intake and Output 04/25/19 04/25/19 04/26/19 15:00 23:00 07:00 Intake Total 240 ml 220 ml 600 ml Output Total 1300 ml 1000 ml 800 ml Balance -1060 ml -780 ml -200 ml REJI ALEJO MD Apr 26, 2019 08:26
--- NOTE | 2019-04-26 10:35 | PDOC ---
Infectious Disease Note Subjective Subjective Doing alright No F/C/N/V/SOA ROS ROS per HPI Vital Sign Vital Signs Vital Signs Date Time Temp Pulse Resp B/P (MAP) Pulse Ox O2 Delivery O2 Flow Rate FiO2 04/26/19 08:24 94 Room Air 2.0 04/26/19 07:00 97.6 64 16 149/64 (92) 97.6 Physical Exam PHYSICAL EXAM GENERAL: Resting quietly, CPAP, arouses to name HEENT: Oral cavity, pharynx clear. NECK: Supple LUNGS: Clear to auscultation bilaterally HEART: S1, S2. ABDOMEN: Morbidly obese, soft, nontender EXTREMITIES: Right 3rd toe bandaged, dry. Left foot wound vac in place. Venous stasis b/l up to barron SKIN: warm to touch NEUROLOGIC: Responds appropriately RUE- PICC clean Labs Lab Laboratory Tests Test 04/25/19 10:52 04/25/19 15:50 04/25/19 20:21 04/26/19 06:10 Glucose (Fingerstick) 138 mg/dL (70-99) 153 mg/dL (70-99) 154 mg/dL (70-99) White Blood Count 6.0 x10^3/uL (4.0-11.0) Red Blood Count 4.46 x10^6/uL (3.50-5.40) Hemoglobin 12.9 g/dL (12.0-15.5) Hematocrit 39.1 % (36.0-47.0) Mean Corpuscular Volume 88 fL (79-100) Mean Corpuscular Hemoglobin 29 pg (25-35) Mean Corpuscular Hemoglobin Concent 33 g/dL (31-37) Red Cell Distribution Width 17.2 % (11.5-14.5) Platelet Count 259 x10^3/uL (140-400) Neutrophils (%) (Auto) 48 % (31-73) Lymphocytes (%) (Auto) 34 % (24-48) Monocytes (%) (Auto) 12 % (0-9) Eosinophils (%) (Auto) 6 % (0-3) Basophils (%) (Auto) 1 % (0-3) Neutrophils # (Auto) 2.9 x10^3/uL (1.8-7.7) Lymphocytes # (Auto) 2.0 x10^3/uL (1.0-4.8) Monocytes # (Auto) 0.7 x10^3/uL (0.0-1.1) Eosinophils # (Auto) 0.4 x10^3/uL (0.0-0.7) Basophils # (Auto) 0.1 x10^3/uL (0.0-0.2) Sodium Level 139 mmol/L (136-145) Potassium Level 4.5 mmol/L (3.5-5.1) Chloride Level 102 mmol/L (98-107) Carbon Dioxide Level 34 mmol/L (21-32) Anion Gap 3 (6-14) Blood Urea Nitrogen 24 mg/dL (7-20) Creatinine 0.6 mg/dL (0.6-1.0) Estimated GFR (Cockcroft-Gault) 102.7 BUN/Creatinine Ratio 40 (6-20) Glucose Level 146 mg/dL (70-99) Calcium Level 9.6 mg/dL (8.5-10.1) Total Bilirubin 0.4 mg/dL (0.2-1.0) Aspartate Amino Transf (AST/SGOT) 11 U/L (15-37) Alanine Aminotransferase (ALT/SGPT) 30 U/L (14-59) Alkaline Phosphatase 101 U/L (46-116) Total Protein 6.8 g/dL (6.4-8.2) Albumin 2.7 g/dL (3.4-5.0) Albumin/Globulin Ratio 0.7 (1.0-1.7) Test 04/26/19 07:28 Glucose (Fingerstick) 137 mg/dL (70-99) Micro 04/20. ANAEROBIC RES 1 Preliminary No anaerobes recovered in 48 hours. AEROBIC CULT Final Preliminary report Final report AEROBIC RES 1 Final Comment No growth in 36 - 48 hours. No growth in 56 - 72 hours. GRAM STAIN RES 1 Final Comment No white blood cells seen. 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 s/p amputation, 04/10, then partial excision MT and excisional debridement surrounding necrotic tissue, 04/14 then I and D below fascia w/ tendon involvement on 04/20. cultures no growth ALISIA - better Cephalexin allergy -swelling and throat closing Leukocytosis - now s/p steroids prior to surgery, improved Yeast skin Dm Right plantar wound s/p debridement devitalized dermis, (1st MTP and 3 toe) 04/14 Plan Plan of Care Meropenem and fluconazole (04/10) off dapto Probiotics Cultures neg Wound care as directed d/w Dr. Sandoval who plans on closing wound 04/27 Eatng and doing well d/w nursing Attending Co-Sign Attending Co-Sign The patient was seen and interviewed as well as examined at the bedside. The chart was reviewed. The case was discussed. Agree with the plan of care. BRISA LUCIA APRN Apr 26, 2019 10:35 MEG BURNS MD Apr 26, 2019 17:34
[2019-04-26 11:00] VITALS: BP 136/62
[2019-04-26] MEDS: FLUCONAZOLE 200MG/100ML PREMIX 100 ML IV SCH (12:14)
[2019-04-26 15:00] VITALS: BP 138/47
--- NOTE | 2019-04-26 15:03 | NUR ---
SS following up with discharge planning. CARE Assessment completed for pt. [facility] considering acceptance at this time. SS will continue to follow for discharge planning.
[2019-04-26 19:38] VITALS: BP 139/66
[2019-04-26] MEDS: INSULIN GLARGINE SYRINGE. SQ SCH (21:00)
[2019-04-26] MEDS: ASPIRIN ENTERIC COATED 325 MG TABLET.DR. PO SCH (21:13)
[2019-04-26] MEDS: ATORVASTATIN CALCIUM 20 MG TABLET PO SCH (21:14)
[2019-04-26] MEDS: GABAPENTIN 400 MG CAPSULE. PO SCH (21:14)
[2019-04-26] MEDS: fentaNYL PF VIAL 100 MCG/2 ML VIAL IV PRN (23:34)
[2019-04-26 23:44] VITALS: BP 126/75
[2019-04-27 03:44] VITALS: BP 122/70
[2019-04-27] MEDS: MEROPENEM 1 GM in IV NORMAL SALINE 100ML 100 ML IV SCH ×3 (04:57→21:11)
[2019-04-27 05:37] LABS: BASO % 1 % (0-3); EOS # 0.4 x10^3/uL (0.0-0.7); EOS % 6 % (0-3); HEMATOCRIT 38.9 % (36.0-47.0); HEMOGLOBIN 12.9 g/dL (12.0-15.5); LYMPH # 2.2 x10^3/uL (1.0-4.8); LYMPH % 34 % (24-48); MEAN CORPUSCULAR HEMOGLOBIN 29 pg (25-35); MEAN CORPUSCULAR HGB CONC 33 g/dL (31-37); MEAN CORPUSCULAR VOLUME 88 fL (79-100); MONO # 0.7 x10^3/uL (0.0-1.1); MONO % 11 % (0-9); NEUT # 3.1 x10^3/uL (1.8-7.7); NEUT % 48 % (31-73); PLATELET COUNT 274 x10^3/uL (140-400); RED BLOOD COUNT 4.43 x10^6/uL (3.50-5.40); RED CELL DISTRIBUTION WIDTH 17.6 % (11.5-14.5); WHITE BLOOD COUNT 6.4 x10^3/uL (4.0-11.0)
[2019-04-27 05:44] LABS: ALBUMIN 2.7 g/dL (3.4-5.0); ALBUMIN/GLOBULIN RATIO 0.7 (1.0-1.7); CALCIUM 9.3 mg/dL (8.5-10.1); CREATININE 0.7 mg/dL (0.6-1.0); GFR 85.9; POTASSIUM 4.3 mmol/L (3.5-5.1); TOTAL BILIRUBIN 0.5 mg/dL (0.2-1.0); TOTAL PROTEIN 6.6 g/dL (6.4-8.2)
[2019-04-27] MEDS ORDERED: BUPIVACAINE-EPI 0.25%-1:200000 MPF 30 ML VIAL. INJ ONE (06:30)
[2019-04-27 07:00] VITALS: BP 138/64
[2019-04-27] MEDS: INSULIN LISPRO 300 UNITS/3 ML VIAL. SQ SCH ×6 (07:30→17:15)
[2019-04-27] MEDS: GABAPENTIN 300 MG CAPSULE. PO SCH ×2 (08:29→17:10)
[2019-04-27] MEDS: LACTOBACILLUS RHAMNOSUS GG 1 CAPSULE. PO SCH ×2 (08:29→21:10)
--- NOTE | 2019-04-27 08:43 | PDOC ---
PROGRESS NOTES Chief Complaint Chief Complaint 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 s/p amputation, 04/10, then partial excision MT and excisional debridement surrounding necrotic tissue, 04/14 then I and D below fascia w/ tendon involvement on 04/20. cultures no growth ALISIA - better, was 2/2 vasomotor nephropathy Cephalexin allergy -swelling and throat closing Leukocytosis - now s/p steroids prior to surgery, improved Yeast skin Right plantar and heel wound s/p debridement devitalized dermis, 04/14 DM with [id number] 9.7 and neuropathy and target organ damage - hx osteo, partial amputation big toe Obesity, morbid BMI 53 HTN - controlled Lymphedema Hyperkalemia 5.5 - improved Diastolic CHF echo 55% Left rotator cuff calcific tendinopathy. Severe protein-caloric malnutrition PULMONARY HYPERTENSION PA pressure 50 History of Present Illness History of Present Illness 04/27/19 Seen and examined. Still with overnight CPAP on. No distress, PICC clean. Still in foot pain. Renal function stable. To OR today for closure. She is trying to be placed in SNF. 04/26/19 Seen and examined. Still in pain, reasonably controlled. Plan for OR closure tomorrow. 04/25/19 Pt seen and examined at bedside Not in acute distress PICC line on right arm Still reports pain Wound dressing intact and dry Charts and labs reviewed BUN was 25, down from 35 Cr remains 0.7 D/w RN 04/24/19 Pt seen and examined at bedside Pt was pleasant and not in acute distress Wound vac dry Discussed care plan with pt Chart and labs reviewed D/w RN 04/23/19 Pt seen and examined by Dr. Alejo Long discussion with her about losing weight, HELPING Herself turn q2 and HELPING herself do the bed pain herself - she had lots of complaints/issues earlier on about her care - seems to not be a highlight of her stay anymore 04/21: K 5.,5 - extra lasix 20 IVP now Easily aroused. Has had some low blood glucose over the past 24 hours. Discussed changing her 26 units scheduled to 22u. Pain reasonably controlled. No SOB or CP. Procedure Hx 04/10 Left 3rd toe amputation at the metatarsal 04/14 Left foot partial excision 3rd metatarsal with debridement of foot. Right foot debridement of open wounds plantar surface and toes 04/20 I&D with tendon involvement left foot with wound vac Vitals Vitals Vital Signs Date Time Temp Pulse Resp B/P (MAP) Pulse Ox O2 Delivery O2 Flow Rate FiO2 04/27/19 07:00 97.8 63 16 138/64 (88) 92 Room Air 97.8 04/26/19 15:59 2.0 Physical Exam Physical Exam GENERAL: Resting quietly, CPAP, arouses to name HEENT: Oral cavity, pharynx clear. NECK: Supple LUNGS: Clear to auscultation bilaterally HEART: S1, S2. ABDOMEN: Morbidly obese, soft, nontender EXTREMITIES: Right 3rd toe bandaged, dry. Left foot wound vac in place. Venous stasis b/l up to barron SKIN: warm to touch NEUROLOGIC: Responds appropriately RUE- PICC clean General: Alert, Oriented X3, Cooperative, No acute distress Heart: Regular rate, Normal S1, Normal S2, No murmurs Lungs: Clear Abdomen: Normal bowel sounds, Soft, No tenderness Extremities: No clubbing, No cyanosis, Other (left leg dressing, rt leg dressing, amputated toe wound vac PLANTAR ASPECT SWOLLEN) Skin: Other (left foot wound with wound vac and right foot wound) Labs LABS Laboratory Tests Test 04/26/19 11:13 04/26/19 16:49 04/26/19 20:39 04/27/19 05:15 Glucose (Fingerstick) 138 mg/dL (70-99) 176 mg/dL (70-99) 161 mg/dL (70-99) White Blood Count 6.4 x10^3/uL (4.0-11.0) Red Blood Count 4.43 x10^6/uL (3.50-5.40) Hemoglobin 12.9 g/dL (12.0-15.5) Hematocrit 38.9 % (36.0-47.0) Mean Corpuscular Volume 88 fL (79-100) Mean Corpuscular Hemoglobin 29 pg (25-35) Mean Corpuscular Hemoglobin Concent 33 g/dL (31-37) Red Cell Distribution Width 17.6 % (11.5-14.5) Platelet Count 274 x10^3/uL (140-400) Neutrophils (%) (Auto) 48 % (31-73) Lymphocytes (%) (Auto) 34 % (24-48) Monocytes (%) (Auto) 11 % (0-9) Eosinophils (%) (Auto) 6 % (0-3) Basophils (%) (Auto) 1 % (0-3) Neutrophils # (Auto) 3.1 x10^3/uL (1.8-7.7) Lymphocytes # (Auto) 2.2 x10^3/uL (1.0-4.8) Monocytes # (Auto) 0.7 x10^3/uL (0.0-1.1) Eosinophils # (Auto) 0.4 x10^3/uL (0.0-0.7) Basophils # (Auto) 0.0 x10^3/uL (0.0-0.2) Sodium Level 140 mmol/L (136-145) Potassium Level 4.3 mmol/L (3.5-5.1) Chloride Level 103 mmol/L (98-107) Carbon Dioxide Level 35 mmol/L (21-32) Anion Gap 2 (6-14) Blood Urea Nitrogen 26 mg/dL (7-20) Creatinine 0.7 mg/dL (0.6-1.0) Estimated GFR (Cockcroft-Gault) 85.9 BUN/Creatinine Ratio 37 (6-20) Glucose Level 155 mg/dL (70-99) Calcium Level 9.3 mg/dL (8.5-10.1) Total Bilirubin 0.5 mg/dL (0.2-1.0) Aspartate Amino Transf (AST/SGOT) 11 U/L (15-37) Alanine Aminotransferase (ALT/SGPT) 31 U/L (14-59) Alkaline Phosphatase 100 U/L (46-116) Total Protein 6.6 g/dL (6.4-8.2) Albumin 2.7 g/dL (3.4-5.0) Albumin/Globulin Ratio 0.7 (1.0-1.7) Test 04/27/19 07:33 Glucose (Fingerstick) 143 mg/dL (70-99) Comment Review of Relevant I have reviewed the following items adrienne (where applicable) has been applied. Labs Laboratory Tests Test 04/25/19 10:52 04/25/19 15:50 04/25/19 20:21 04/26/19 06:10 Glucose (Fingerstick) 138 mg/dL (70-99) 153 mg/dL (70-99) 154 mg/dL (70-99) White Blood Count 6.0 x10^3/uL (4.0-11.0) Red Blood Count 4.46 x10^6/uL (3.50-5.40) Hemoglobin 12.9 g/dL (12.0-15.5) Hematocrit 39.1 % (36.0-47.0) Mean Corpuscular Volume 88 fL (79-100) Mean Corpuscular Hemoglobin 29 pg (25-35) Mean Corpuscular Hemoglobin Concent 33 g/dL (31-37) Red Cell Distribution Width 17.2 % (11.5-14.5) Platelet Count 259 x10^3/uL (140-400) Neutrophils (%) (Auto) 48 % (31-73) Lymphocytes (%) (Auto) 34 % (24-48) Monocytes (%) (Auto) 12 % (0-9) Eosinophils (%) (Auto) 6 % (0-3) Basophils (%) (Auto) 1 % (0-3) Neutrophils # (Auto) 2.9 x10^3/uL (1.8-7.7) Lymphocytes # (Auto) 2.0 x10^3/uL (1.0-4.8) Monocytes # (Auto) 0.7 x10^3/uL (0.0-1.1) Eosinophils # (Auto) 0.4 x10^3/uL (0.0-0.7) Basophils # (Auto) 0.1 x10^3/uL (0.0-0.2) Sodium Level 139 mmol/L (136-145) Potassium Level 4.5 mmol/L (3.5-5.1) Chloride Level 102 mmol/L (98-107) Carbon Dioxide Level 34 mmol/L (21-32) Anion Gap 3 (6-14) Blood Urea Nitrogen 24 mg/dL (7-20) Creatinine 0.6 mg/dL (0.6-1.0) Estimated GFR (Cockcroft-Gault) 102.7 BUN/Creatinine Ratio 40 (6-20) Glucose Level 146 mg/dL (70-99) Calcium Level 9.6 mg/dL (8.5-10.1) Total Bilirubin 0.4 mg/dL (0.2-1.0) Aspartate Amino Transf (AST/SGOT) 11 U/L (15-37) Alanine Aminotransferase (ALT/SGPT) 30 U/L (14-59) Alkaline Phosphatase 101 U/L (46-116) Total Protein 6.8 g/dL (6.4-8.2) Albumin 2.7 g/dL (3.4-5.0) Albumin/Globulin Ratio 0.7 (1.0-1.7) Test 04/26/19 07:28 04/26/19 11:13 04/26/19 16:49 04/26/19 20:39 Glucose (Fingerstick) 137 mg/dL (70-99) 138 mg/dL (70-99) 176 mg/dL (70-99) 161 mg/dL (70-99) Test 04/27/19 05:15 04/27/19 07:33 White Blood Count 6.4 x10^3/uL (4.0-11.0) Red Blood Count 4.43 x10^6/uL (3.50-5.40) Hemoglobin 12.9 g/dL (12.0-15.5) Hematocrit 38.9 % (36.0-47.0) Mean Corpuscular Volume 88 fL (79-100) Mean Corpuscular Hemoglobin 29 pg (25-35) Mean Corpuscular Hemoglobin Concent 33 g/dL (31-37) Red Cell Distribution Width 17.6 % (11.5-14.5) Platelet Count 274 x10^3/uL (140-400) Neutrophils (%) (Auto) 48 % (31-73) Lymphocytes (%) (Auto) 34 % (24-48) Monocytes (%) (Auto) 11 % (0-9) Eosinophils (%) (Auto) 6 % (0-3) Basophils (%) (Auto) 1 % (0-3) Neutrophils # (Auto) 3.1 x10^3/uL (1.8-7.7) Lymphocytes # (Auto) 2.2 x10^3/uL (1.0-4.8) Monocytes # (Auto) 0.7 x10^3/uL (0.0-1.1) Eosinophils # (Auto) 0.4 x10^3/uL (0.0-0.7) Basophils # (Auto) 0.0 x10^3/uL (0.0-0.2) Sodium Level 140 mmol/L (136-145) Potassium Level 4.3 mmol/L (3.5-5.1) Chloride Level 103 mmol/L (98-107) Carbon Dioxide Level 35 mmol/L (21-32) Anion Gap 2 (6-14) Blood Urea Nitrogen 26 mg/dL (7-20) Creatinine 0.7 mg/dL (0.6-1.0) Estimated GFR (Cockcroft-Gault) 85.9 BUN/Creatinine Ratio 37 (6-20) Glucose Level 155 mg/dL (70-99) Calcium Level 9.3 mg/dL (8.5-10.1) Total Bilirubin 0.5 mg/dL (0.2-1.0) Aspartate Amino Transf (AST/SGOT) 11 U/L (15-37) Alanine Aminotransferase (ALT/SGPT) 31 U/L (14-59) Alkaline Phosphatase 100 U/L (46-116) Total Protein 6.6 g/dL (6.4-8.2) Albumin 2.7 g/dL (3.4-5.0) Albumin/Globulin Ratio 0.7 (1.0-1.7) Glucose (Fingerstick) 143 mg/dL (70-99) Laboratory Tests Test 04/26/19 11:13 04/26/19 16:49 04/26/19 20:39 04/27/19 05:15 Glucose (Fingerstick) 138 mg/dL (70-99) 176 mg/dL (70-99) 161 mg/dL (70-99) White Blood Count 6.4 x10^3/uL (4.0-11.0) Red Blood Count 4.43 x10^6/uL (3.50-5.40) Hemoglobin 12.9 g/dL (12.0-15.5) Hematocrit 38.9 % (36.0-47.0) Mean Corpuscular Volume 88 fL (79-100) Mean Corpuscular Hemoglobin 29 pg (25-35) Mean Corpuscular Hemoglobin Concent 33 g/dL (31-37) Red Cell Distribution Width 17.6 % (11.5-14.5) Platelet Count 274 x10^3/uL (140-400) Neutrophils (%) (Auto) 48 % (31-73) Lymphocytes (%) (Auto) 34 % (24-48) Monocytes (%) (Auto) 11 % (0-9) Eosinophils (%) (Auto) 6 % (0-3) Basophils (%) (Auto) 1 % (0-3) Neutrophils # (Auto) 3.1 x10^3/uL (1.8-7.7) Lymphocytes # (Auto) 2.2 x10^3/uL (1.0-4.8) Monocytes # (Auto) 0.7 x10^3/uL (0.0-1.1) Eosinophils # (Auto) 0.4 x10^3/uL (0.0-0.7) Basophils # (Auto) 0.0 x10^3/uL (0.0-0.2) Sodium Level 140 mmol/L (136-145) Potassium Level 4.3 mmol/L (3.5-5.1) Chloride Level 103 mmol/L (98-107) Carbon Dioxide Level 35 mmol/L (21-32) Anion Gap 2 (6-14) Blood Urea Nitrogen 26 mg/dL (7-20) Creatinine 0.7 mg/dL (0.6-1.0) Estimated GFR (Cockcroft-Gault) 85.9 BUN/Creatinine Ratio 37 (6-20) Glucose Level 155 mg/dL (70-99) Calcium Level 9.3 mg/dL (8.5-10.1) Total Bilirubin 0.5 mg/dL (0.2-1.0) Aspartate Amino Transf (AST/SGOT) 11 U/L (15-37) Alanine Aminotransferase (ALT/SGPT) 31 U/L (14-59) Alkaline Phosphatase 100 U/L (46-116) Total Protein 6.6 g/dL (6.4-8.2) Albumin 2.7 g/dL (3.4-5.0) Albumin/Globulin Ratio 0.7 (1.0-1.7) Test 04/27/19 07:33 Glucose (Fingerstick) 143 mg/dL (70-99) Microbiology 04/20/19 Anaerobic/Aerobic Culture - Final, Complete 04/20/19 Anaerobic Culture Result 1 (DEANNE) - Final, Complete 04/20/19 Aerobic Culture - Final, Complete 04/20/19 Aerobic Culture Result 1 (DEANNE) - Final, Complete 04/20/19 Gram Stain - Final, Complete 04/20/19 Gram Stain Result 1 (DEANNE) - Final, Complete 04/20/19 Gram Stain Result 2 (DEANNE) - Final, Complete 04/10/19 Blood Culture - Final, Complete NO GROWTH AFTER 5 DAYS Medications Current Medications Vancomycin HCl (Vanco Per Pharmacy) 1 each PRN DAILY PRN MC SEE COMMENTS Last administered on 04/10/19at 03:41; Start 04/09/19 at 22:30; Stop 04/10/19 at 12:36; Status DC Piperacillin Sod/ Tazobactam Sod (Zosyn Per Pharmacy) 1 each PRN DAILY PRN MC SEE COMMENTS; Start 04/09/19 at 22:30; Stop 04/10/19 at 12:35; Status DC Sodium Chloride 1,000 ml @ 100 mls/hr Q10H IV Last administered on 04/11/19at 05:23; Start 04/09/19 at 23:00; Stop 04/11/19 at 09:26; Status DC Acetaminophen/ Hydrocodone Bitart (Lortab 5/325) 1 tab PRN Q4HRS PRN PO MODERATE PAIN 4-6 Last administered on 04/20/19at 13:21; Start 04/09/19 at 22:30 Acetaminophen/ Hydrocodone Bitart (Lortab 5/325) 2 tab PRN Q4HRS PRN PO SEVERE PAIN 7-10 Last administered on 04/26/19at 21:13; Start 04/09/19 at 22:30 Insulin Glargine (Lantus Syringe) 70 unit QHS SQ Last administered on 04/22/19at 20:35; Start 04/09/19 at 23:00; Stop 04/23/19 at 17:03; Status DC Insulin Human Lispro (HumaLOG) 20 units 1X ONCE SQ Last administered on 04/09/19at 23:02; Start 04/09/19 at 23:00; Stop 04/09/19 at 23:01; Status DC Insulin Human Lispro (HumaLOG) 0-7 UNITS TIDWMEALS SQ ; Start 04/10/19 at 08:00; Stop 04/10/19 at 08:08; Status DC Dextrose (Dextrose 50%-Water Syringe) 12.5 gm PRN Q15MIN PRN IV SEE COMMENTS; Start 04/09/19 at 22:30; Status Cancel Dextrose 250 ml PRN Q15MIN PRN IV SEE COMMENTS; Start 04/09/19 at 22:30; Status Cancel Insulin Human Lispro (HumaLOG) 26 units TIDAC SQ Last administered on 04/22/19at 17:45; Start 04/10/19 at 07:30; Stop 04/23/19 at 12:05; Status DC Piperacillin Sod/ Tazobactam Sod 3.375 gm/Sodium Chloride 50 ml @ 100 mls/hr Q6HRS IV Last administered on 04/10/19at 11:35; Start 04/10/19 at 00:00; Stop 04/10/19 at 12:35; Status DC Gabapentin (Neurontin) 900 mg [id number] PO Last administered on 04/26/19at 13:39; Start 04/10/19 at 09:00 Gabapentin (Neurontin) 1,200 mg HS PO Last administered on 04/26/19at 21:14; Start 04/10/19 at 21:00 Atenolol (Tenormin) 40 mg DAILY PO ; Start 04/10/19 at 09:00; Status UNV Vancomycin HCl 2 gm/Sodium Chloride 500 ml @ 250 mls/hr Q12H IV Last administered on 04/10/19at 05:20; Start 04/10/19 at 05:00; Stop 04/10/19 at 12:36; Status DC Vancomycin HCl (Vancomycin Trough Level) 1 each 1X ONCE MC ; Start 04/11/19 at 04:30; Stop 04/11/19 at 04:31; Status Cancel Insulin Human Lispro (HumaLOG) 0-9 UNITS TIDWMEALS SQ Last administered on 04/26/19at 17:16; Start 04/10/19 at 12:00 Dextrose (Dextrose 50%-Water Syringe) 12.5 gm PRN Q15MIN PRN IV SEE COMMENTS; Start 04/10/19 at 08:15 Dextrose 250 ml PRN Q15MIN PRN IV SEE COMMENTS; Start 04/10/19 at 08:15 Acetaminophen (Tylenol) 500 mg PRN Q6HRS PRN PO MILD PAIN / TEMP Last administered on 04/12/19at 13:04; Start 04/10/19 at 08:15 Ondansetron HCl (Zofran) 4 mg PRN Q6HRS PRN IV NAUSEA/VOMITING Last administered on 04/13/19at 12:24; Start 04/10/19 at 08:15 Fentanyl Citrate (Fentanyl 2ml Vial) 50 mcg PRN Q2HR PRN IV PAIN Last administered on 04/26/19at 23:34; Start 04/10/19 at 08:15 Sodium Chloride (Fordyce Saline Nasal) 1 nadeem PRN Q2HRS PRN NS NASAL CONGESTION Last administered on 04/10/19at 15:54; Start 04/10/19 at 11:45 Fluconazole/ Sodium Chloride 100 ml @ 100 mls/hr Q24H IV Last administered on 04/26/19at 12:14; Start 04/10/19 at 13:00 Meropenem 1 gm/ Sodium Chloride 100 ml @ 200 mls/hr Q8HRS IV Last administered on 04/27/19at 04:57; Start 04/10/19 at 14:00 Daptomycin 900 mg/ Sodium Chloride 50 ml @ 100 mls/hr Q24H IV Last administered on 04/16/19at 12:24; Start 04/10/19 at 13:00; Stop 04/17/19 at 10:05; Status DC Fentanyl Citrate (Fentanyl 2ml Vial) 25 mcg PRN Q5MIN PRN IV MILD PAIN 1-3; St art 04/10/19 at 13:15; Stop 04/11/19 at 11:49; Status DC Fentanyl Citrate (Fentanyl 2ml Vial) 50 mcg PRN Q5MIN PRN IV MODERATE TO SEVERE PAIN; Start 04/10/19 at 13:15; Stop 04/11/19 at 11:49; Status DC Morphine Sulfate (Morphine Sulfate) 1 mg PRN Q10MIN PRN IV SEVERE PAIN 7-10; Start 04/10/19 at 13:15; Stop 04/11/19 at 11:50; Status DC Ringer's Solution 1,000 ml @ 30 mls/hr Q24H IV ; Start 04/10/19 at 13:14; Stop 04/11/19 at 01:13; Status DC Hydromorphone HCl (Dilaudid) 0.5 mg PRN Q10MIN PRN IV SEV PAIN, Second choice; Start 04/10/19 at 13:15; Stop 04/11/19 at 11:50; Status DC Prochlorperazine Edisylate (Compazine) 5 mg PACU PRN PRN IV NAUSEA, MRX1; Start 04/10/19 at 13:15; Stop 04/11/19 at 11:50; Status DC Fentanyl Citrate (Fentanyl 2ml Vial) 100 mcg STK-MED ONCE .ROUTE ; Start 04/10/19 at 13:20; Stop 04/10/19 at 13:21; Status DC Sevoflurane (Ultane) 30 ml STK-MED ONCE IH ; Start 04/10/19 at 13:20; Stop 04/10/19 at 13:21; Status DC Propofol 20 ml @ As Directed STK-MED ONCE IV ; Start 04/10/19 at 13:20; Stop 04/10/19 at 13:21; Status DC Dexamethasone Sodium Phosphate (Decadron) 4 mg STK-MED ONCE .ROUTE ; Start 04/10/19 at 13:21; Stop 04/10/19 at 13:21; Status DC Lidocaine HCl (Lidocaine Pf 2% Vial) 5 ml STK-MED ONCE .ROUTE ; Start 04/10/19 at 13:21; Stop 04/10/19 at 13:21; Status DC Ondansetron HCl (Zofran) 4 mg STK-MED ONCE .ROUTE ; Start 04/10/19 at 13:21; Stop 04/10/19 at 13:21; Status DC Phenylephrine HCl (PHENYLEPHRINE in 0.9% NACL PF) 1 mg STK-MED ONCE IV ; Start 04/10/19 at 14:27; Stop 04/10/19 at 14:27; Status DC Aspirin (Ecotrin) 325 mg QHS PO Last administered on 04/26/19at 21:13; Start 04/10/19 at 21:00 Oxycodone/ Acetaminophen (Percocet 5/325) 1 tab PRN Q4HRS PRN PO MODERATE PAIN, LAST OPTION Last administered on 04/14/19at 15:41; Start 04/10/19 at 15:15; Stop 04/15/19 at 16:17; Status DC Oxycodone/ Acetaminophen (Percocet 5/325) 2 tab PRN Q4HRS PRN PO SEVERE PAIN, LAST OPTION Last administered on 04/14/19at 20:33; Start 04/10/19 at 15:30; Stop 04/15/19 at 16:17; Status DC Insulin Glargine (Lantus Syringe) 30 unit DAILY SQ Last administered on 04/21/19at 08:53; Start 04/11/19 at 09:00; Stop 04/21/19 at 20:11; Status DC Sodium Polystyrene Sulfonate (Kayexalate) 15 gm 1X ONCE PO Last administered on 04/11/19at 10:24; Start 04/11/19 at 09:00; Stop 04/11/19 at 09:01; Status DC Meclizine HCl (Antivert) 12.5 mg PRN Q6HRS PRN PO DIZZINESS Last administered on 04/11/19at 10:24; Start 04/11/19 at 09:30 Albuterol Sulfate (Ventolin Neb Soln) 2.5 mg PRN Q4HRS PRN NEB SHORTNESS OF BREATH Last administered on 04/14/19at 15:30; Start 04/11/19 at 10:45; Stop 04/14/19 at 15:46; Status DC Albuterol Sulfate (Ventolin Neb Soln) 2.5 mg 1X ONCE NEB Last administered on 04/11/19at 11:54; Start 04/11/19 at 11:00; Stop 04/11/19 at 11:01; Status DC Lactobacillus Rhamnosus (Culturelle) 1 cap BID PO Last administered on 04/26/19at 21:13; Start 04/11/19 at 12:00 Furosemide (Lasix) 40 mg 1X ONCE IVP Last administered on 04/11/19at 20:18; Start 04/11/19 at 19:00; Stop 04/11/19 at 19:01; Status DC Perflutren Protein Type A Microsphe (Optison) 0.66 mg 1X ONCE IV ; Start 04/12/19 at 10:00; Stop 04/12/19 at 10:01; Status DC Furosemide (Lasix) 40 mg 1X ONCE IVP Last administered on 04/12/19at 11:44; Start 04/12/19 at 10:45; Stop 04/12/19 at 10:49; Status DC Atenolol (Tenormin) 50 mg BID PO Last administered on 04/22/19at 08:33; Start 04/13/19 at 14:00; Stop 04/22/19 at 08:54; Status DC Morphine Sulfate (Morphine Sulfate) 1 mg PRN Q10MIN PRN IV SEVERE PAIN 7-10; Start 04/14/19 at 07:00; Stop 04/15/19 at 06:59; Status DC Ringer's Solution 1,000 ml @ 30 mls/hr Q24H IV ; Start 04/14/19 at 07:00; Stop 04/14/19 at 18:59; Status DC Hydromorphone HCl (Dilaudid) 0.5 mg PRN Q10MIN PRN IV SEV PAIN, Second choice; Start 04/14/19 at 07:00; Stop 04/15/19 at 06:59; Status DC Prochlorperazine Edisylate (Compazine) 5 mg PACU PRN PRN IV NAUSEA, MRX1; Start 04/14/19 at 07:00; Stop 04/15/19 at 06:59; Status DC Furosemide (Lasix) 40 mg 1X ONCE IVP Last administered on 04/13/19at 17:35; Start 04/13/19 at 17:00; Stop 04/13/19 at 17:01; Status DC Furosemide (Lasix) 40 mg DAILY PO Last administered on 04/26/19at 08:13; Start 04/14/19 at 09:00 Atorvastatin Calcium (Lipitor) 20 mg QHS PO Last administered on 04/26/19at 21:14; Start 04/13/19 at 21:00 Insulin Human Lispro (HumaLOG) 3 units 1X ONCE SQ Last administered on 04/13/19at 20:44; Start 04/13/19 at 21:00; Stop 04/13/19 at 21:01; Status DC Propofol 20 ml @ As Directed STK-MED ONCE IV ; Start 04/14/19 at 07:35; Stop 04/14/19 at 07:36; Status DC Dexamethasone Sodium Phosphate (Decadron) 4 mg STK-MED ONCE .ROUTE ; Start 04/14/19 at 07:35; Stop 04/14/19 at 07:36; Status DC Lidocaine HCl (Lidocaine Pf 2% Vial) 5 ml STK-MED ONCE .ROUTE ; Start 04/14/19 at 07:35; Stop 04/14/19 at 07:36; Status DC Ondansetron HCl (Zofran) 4 mg STK-MED ONCE .ROUTE ; Start 04/14/19 at 07:35; Stop 04/14/19 at 07:36; Status DC Sevoflurane (Ultane) 60 ml STK-MED ONCE IH ; Start 04/14/19 at 07:36; Stop 04/14/19 at 07:36; Status DC Sevoflurane (Ultane) 15 ml STK-MED ONCE IH ; Start 04/14/19 at 09:22; Stop 04/14/19 at 09:23; Status DC Morphine Sulfate (Morphine Sulfate) 1 mg PRN Q10MIN PRN IV SEVERE PAIN 7-10; Start 04/14/19 at 09:45; Stop 04/14/19 at 20:00; Status DC Ringer's Solution 1,000 ml @ 30 mls/hr Q24H IV ; Start 04/14/19 at 09:32; Stop 04/14/19 at 21:31; Status DC Hydromorphone HCl (Dilaudid) 0.5 mg PRN Q10MIN PRN IV SEV PAIN, Second choice Last administered on 04/14/19at 10:06; Start 04/14/19 at 09:45; Stop 04/14/19 at 20:00; Status DC Prochlorperazine Edisylate (Compazine) 5 mg PACU PRN PRN IV NAUSEA, MRX1; Start 04/14/19 at 09:45; Stop 04/14/19 at 20:00; Status DC Fentanyl Citrate (Fentanyl 2ml Vial) 100 mcg STK-MED ONCE .ROUTE ; Start 04/14/19 at 09:33; Stop 04/14/19 at 09:33; Status DC Albuterol Sulfate (Ventolin Neb Soln) 2.5 mg RTQID NEB Last administered on 04/18/19at 07:20; Start 04/14/19 at 15:45; Stop 04/20/19 at 23:47; Status DC Morphine Sulfate (Morphine Sulfate) 1 mg PRN Q10MIN PRN IV SEVERE PAIN 7-10; Start 04/17/19 at 07:00; Stop 04/18/19 at 06:59; Status DC Ringer's Solution 1,000 ml @ 30 mls/hr Q24H IV ; Start 04/17/19 at 07:00; Stop 04/17/19 at 18:59; Status DC Lidocaine HCl (Xylocaine-Mpf 1% 2ml Vial) 2 ml PRN 1X PRN ID PRIOR TO IV START; Start 04/17/19 at 07:00; Stop 04/18/19 at 06:59; Status DC Hydromorphone HCl (Dilaudid) 0.5 mg PRN Q10MIN PRN IV SEV PAIN, Second choice; Start 04/17/19 at 07:00; Stop 04/18/19 at 06:59; Status DC Prochlorperazine Edisylate (Compazine) 5 mg PACU PRN PRN IV NAUSEA, MRX1; Start 04/17/19 at 07:00; Stop 04/18/19 at 06:59; Status DC Bupivacaine HCl/ Epinephrine Bitart (Sensorcaine-Epi 0.25%-1:240157 Mpf) 30 ml 1X ONCE INJ ; Start 04/17/19 at 06:00; Stop 04/17/19 at 06:01; Status DC Gadoterate Meglumine (Dotarem) 29.8 ml 1X ONCE IVP Last administered on 04/17/19at 15:15; Start 04/17/19 at 15:00; Stop 04/17/19 at 15:06; Status DC Ondansetron HCl (Zofran) 4 mg PRN Q6HRS PRN IV NAUSEA/VOMITING; Start 04/20/19 at 07:00; Stop 04/21/19 at 06:59; Status DC Fentanyl Citrate (Fentanyl 2ml Vial) 25 mcg PRN Q5MIN PRN IV MILD PAIN 1-3; St art 04/20/19 at 07:00; Stop 04/21/19 at 06:59; Status DC Fentanyl Citrate (Fentanyl 2ml Vial) 50 mcg PRN Q5MIN PRN IV MODERATE TO SEVERE PAIN; Start 04/20/19 at 07:00; Stop 04/21/19 at 06:59; Status DC Morphine Sulfate (Morphine Sulfate) 1 mg PRN Q10MIN PRN IV SEVERE PAIN 7-10; Start 04/20/19 at 07:00; Stop 04/21/19 at 06:59; Status DC Ringer's Solution 1,000 ml @ 30 mls/hr Q24H IV Last administered on 04/20/19at 10:37; Start 04/20/19 at 07:00; Stop 04/20/19 at 18:59; Status DC Lidocaine HCl (Xylocaine-Mpf 1% 2ml Vial) 2 ml PRN 1X PRN ID PRIOR TO IV START; Start 04/20/19 at 07:00; Stop 04/21/19 at 06:59; Status DC Hydromorphone HCl (Dilaudid) 0.5 mg PRN Q10MIN PRN IV SEV PAIN, Second choice; Start 04/20/19 at 07:00; Stop 04/21/19 at 06:59; Status DC Prochlorperazine Edisylate (Compazine) 5 mg PACU PRN PRN IV NAUSEA, MRX1; Start 04/20/19 at 07:00; Stop 04/21/19 at 06:59; Status DC Bupivacaine HCl/ Epinephrine Bitart (Sensorcaine-Epi 0.25%-1:[id number] Mpf) 30 ml 1X ONCE INJ ; Start 04/20/19 at 10:30; Stop 04/20/19 at 10:31; Status DC Sevoflurane (Ultane) 15 ml STK-MED ONCE IH ; Start 04/20/19 at 10:29; Stop 04/20/19 at 19:53; Status DC Fentanyl Citrate (Fentanyl 2ml Vial) 100 mcg STK-MED ONCE .ROUTE ; Start 04/20/19 at 10:29; Stop 04/20/19 at 19:53; Status DC Propofol 0 ml @ As Directed STK-MED ONCE IV ; Start 04/20/19 at 10:29; Stop 04/20/19 at 19:53; Status DC Lidocaine HCl (Lidocaine Pf 2% Vial) 5 ml STK-MED ONCE .ROUTE ; Start 04/20/19 at 10:29; Stop 04/20/19 at 19:53; Status DC Dexamethasone Sodium Phosphate (Decadron) 4 mg STK-MED ONCE .ROUTE ; Start 04/20/19 at 10:30; Stop 04/20/19 at 19:53; Status DC Ondansetron HCl (Zofran) 4 mg STK-MED ONCE .ROUTE ; Start 04/20/19 at 10:30; Stop 04/20/19 at 19:53; Status DC Phenylephrine HCl (PHENYLEPHRINE in 0.9% NACL PF) 1 mg STK-MED ONCE IV ; Start 04/20/19 at 10:30; Stop 04/20/19 at 19:53; Status DC Sevoflurane (Ultane) 60 ml STK-MED ONCE IH ; Start 04/20/19 at 10:37; Stop 04/20/19 at 19:53; Status DC Fentanyl Citrate (Fentanyl 2ml Vial) 100 mcg STK-MED ONCE .ROUTE ; Start 04/20/19 at 10:37; Stop 04/20/19 at 19:53; Status DC Propofol 20 ml @ As Directed STK-MED ONCE IV ; Start 04/20/19 at 10:38; Stop 04/20/19 at 19:53; Status DC Lidocaine HCl (Lidocaine Pf 2% Vial) 5 ml STK-MED ONCE .ROUTE ; Start 04/20/19 at 10:38; Stop 04/20/19 at 19:53; Status DC Ondansetron HCl (Zofran) 4 mg STK-MED ONCE .ROUTE ; Start 04/20/19 at 10:38; Stop 04/20/19 at 19:53; Status DC Dexamethasone Sodium Phosphate (Decadron) 4 mg STK-MED ONCE .ROUTE ; Start 04/20/19 at 10:38; Stop 04/20/19 at 19:53; Status DC Glycopyrrolate (Robinul) 1 mg STK-MED ONCE .ROUTE ; Start 04/20/19 at 11:10; Stop 04/20/19 at 19:53; Status DC Ephedrine Sulfate (ePHEDrine PF IN SALINE SYRINGE) 50 mg STK-MED ONCE IV ; Start 04/20/19 at 11:16; Stop 04/20/19 at 19:53; Status DC Fentanyl Citrate (Fentanyl 2ml Vial) 100 mcg STK-MED ONCE .ROUTE ; Start 04/20/19 at 12:16; Stop 04/20/19 at 19:53; Status DC Albuterol Sulfate (Ventolin Neb Soln) 2.5 mg PRN QID PRN NEB SHORTNESS OF BREATH; Start 04/21/19 at 08:00 Furosemide (Lasix) 20 mg 1X ONCE IVP Last administered on 04/21/19at 10:07; Start 04/21/19 at 09:30; Stop 04/21/19 at 09:32; Status DC Insulin Human Lispro (HumaLOG) 22 units TIDAC SQ Last administered on 04/23/19at 13:12; Start 04/23/19 at 12:09; Stop 04/23/19 at 17:03; Status DC Insulin Glargine (Lantus Syringe) 55 unit QHS SQ Last administered on 04/26/19at 21:00; Start 04/23/19 at 21:00 Insulin Human Lispro (HumaLOG) 15 units TIDAC SQ Last administered on 04/26/19at 17:15; Start 04/23/19 at 17:15 Bupivacaine HCl/ Epinephrine Bitart (Sensorcaine-Epi 0.25%-1:075502 Mpf) 30 ml 1X ONCE INJ ; Start 04/27/19 at 06:30; Stop 04/27/19 at 06:31; Status DC Active Scripts Active Reported Atenolol 50 Mg Tablet 1 Tab PO BID Vitals/I & O Vital Sign - Last 24 Hours 04/26/19 04/26/19 04/26/19 04/26/19 10:41 11:00 15:00 15:59 Temp 97.8 97.8 Pulse 71 70 Resp 16 16 B/P (MAP) 136/62 (86) 138/47 (77) Pulse Ox 94 92 91 92 O2 Delivery Room Air Room Air Room Air Room Air O2 Flow Rate 2.0 2.0 04/26/19 04/26/19 04/26/19 04/26/19 19:38 20:00 21:13 22:13 Temp 99.1 99.1 Pulse 72 Resp 18 18 18 B/P (MAP) 139/66 (90) Pulse Ox 92 92 92 O2 Delivery Room Air Room Air Room Air Room Air 04/26/19 04/26/19 04/27/19 04/27/19 23:34 23:44 00:04 03:44 Temp 97.7 97.5 97.7 97.5 Pulse 68 63 Resp 20 18 18 B/P (MAP) 126/75 (92) 122/70 (87) Pulse Ox 92 94 98 91 O2 Delivery Room Air Room Air BiPAP/CPAP BiPAP/CPAP 04/27/19 07:00 Temp 97.8 97.8 Pulse 63 Resp 16 B/P (MAP) 138/64 (88) Pulse Ox 92 O2 Delivery Room Air Intake and Output 1004/26/19 04/27/19 14:59 22:59 06:59 Intake Total 300 ml Output Total 1500 ml 350 ml Balance -1500 ml -50 ml REJI ALEJO MD Apr 27, 2019 08:43
[2019-04-27] MEDS: FUROSEMIDE 40 MG TABLET. PO SCH (09:00)
[2019-04-27 11:00] VITALS: BP 133/55
[2019-04-27] MEDS: FLUCONAZOLE 200MG/100ML PREMIX 100 ML IV SCH (12:23)
[2019-04-27] MEDS ORDERED: IV RINGERS,LACTATED 1000ML 1,000 ML IV SCH (12:26)
[2019-04-27] MEDS ORDERED: LIDOCAINE 1% PF 2 ML VIAL. ID PRN (12:30)
[2019-04-27] MEDS ORDERED: ONDANSETRON PF 4 MG/2 ML VIAL. IV PRN (12:30)
[2019-04-27] MEDS ORDERED: PROCHLORPERAZINE 10 MG/2 ML VIAL. IV PRN (12:30)
[2019-04-27] MEDS ORDERED: HYDROmorphone 2 MG/ML VIAL IV PRN (12:30)
[2019-04-27] MEDS ORDERED: MORPHINE SULFATE 2 MG/ML VIAL. IV PRN (12:30)
[2019-04-27] MEDS ORDERED: fentaNYL PF VIAL 100 MCG/2 ML VIAL IV PRN ×2 (12:30)
[2019-04-27] MEDS ORDERED: LIDOCAINE 2% PF 5 ML VIAL. ONE (12:39)
[2019-04-27] MEDS ORDERED: ONDANSETRON PF 4 MG/2 ML VIAL. ONE (12:39)
[2019-04-27] MEDS ORDERED: PROPOFOL 20 ML IV ONE (12:39)
[2019-04-27] MEDS ORDERED: fentaNYL PF VIAL 100 MCG/2 ML VIAL ONE ×2 (12:39→14:26)
[2019-04-27] MEDS ORDERED: DEXAMETHASONE SOD PHOS 4 MG/ML VIAL ONE (12:39)
--- NOTE | 2019-04-27 13:29 | NUR ---
SS following up with discharge planning. Pt accepted at [facility], ; fax [phone], medicaid pending. Pt currently in surgery. SS will continue to follow for discharge planning.
[2019-04-27] MEDS ORDERED: ePHEDrine PF IN SALINE 50 MG/10 ML SYRINGE. IV ONE (13:43)
[2019-04-27] MEDS ORDERED: SEVOFLURANE 31 TO 60 MINUTES. IH ONE (13:43)
--- NOTE | 2019-04-27 14:28 | PDOC4 ---
Operative Note Operative Note Date of Procedure: April 27, 2019 Pre-Op Diagnosis: Disruption of external operation surgical wound not elsewhere classified, initial encounter T81.31XA Post-Op Diagnosis: Disruption of external operation surgical wound not elsewhere classified, initial encounter T81.31XA Procedure: Repair complex left foot 17 cm CPT 06518 (first 7.5 cm) CPT 40667 (additional 5 cm) CPT 40818 (additional 5 cm) Surgeon: Susana Sandoval MD Story Analyst: OSCAR Spence Anesthesia: General EBL: 10 mL Specimens Obtained: none Complications: none Drains: none Findings: Open wound with no necrotic tissue, no additional infection Procedure in Detail: The patient was identified in the preoperative holding area. The correct left foot was marked by me. The patient was taken to the operating room where general anesthesia was used. The patient was positioned supine on the operating table. The patient remains on scheduled antibiotics. A timeout procedure was performed. A tourniquet was applied to the upper thigh but not inflated. The limb was prepared in sterile fashion with surgical prep solution. Sterile drapes were applied. The [employer] InterPulse intelligence agent was used, and the tissue irrigated for cleanliness. There was no additional debridement required. There is an open wound between the second and fourth toes which extends 17 cm including the plantar aspect and the dorsal aspect and the new interdigital space between the second and fourth toes. This was closed in a multiple layered fashion. I used #0 PDS in the deep tissue near the metatarsal heads. I used #2-0 PDS in the subcutaneous tissues. My housing assistant and I closed the skin with #2-0 nylon horizontal mattress sutures. Secure closure was obtained. Sterile dressings were applied. Needle and sponge counts were correct. There were no apparent complications. SUSANA SANDOVAL MD Apr 27, 2019 14:28
[2019-04-27] MEDS: fentaNYL PF VIAL 100 MCG/2 ML VIAL IV PRN ×2 (18:28→21:10)
[2019-04-27] MEDS: HYDROcodone/APAP 5/325MG 1 TAB TABLET PO PRN (18:28)
[2019-04-27 19:00] VITALS: BP 155/78
[2019-04-27] MEDS: INSULIN GLARGINE SYRINGE. SQ SCH (21:00)
[2019-04-27] MEDS: ASPIRIN ENTERIC COATED 325 MG TABLET.DR. PO SCH (21:10)
[2019-04-27] MEDS: ATORVASTATIN CALCIUM 20 MG TABLET PO SCH (21:10)
[2019-04-27] MEDS: GABAPENTIN 400 MG CAPSULE. PO SCH (21:10)
[2019-04-27 23:05] VITALS: BP 150/71
[2019-04-28] MEDS: fentaNYL PF VIAL 100 MCG/2 ML VIAL IV PRN ×5 (00:14→22:16)
[2019-04-28 03:05] VITALS: BP 132/61
[2019-04-28] MEDS: MEROPENEM 1 GM in IV NORMAL SALINE 100ML 100 ML IV SCH ×3 (06:24→23:00)
[2019-04-28 06:54] LABS: BASO % 0 % (0-3); EOS % 0 % (0-3); HEMATOCRIT 40.3 % (36.0-47.0); HEMOGLOBIN 13.2 g/dL (12.0-15.5); LYMPH % 14 % (24-48); MEAN CORPUSCULAR HEMOGLOBIN 29 pg (25-35); MEAN CORPUSCULAR HGB CONC 33 g/dL (31-37); MEAN CORPUSCULAR VOLUME 88 fL (79-100); MONO # 0.4 x10^3/uL (0.0-1.1); MONO % 6 % (0-9); NEUT # 5.5 x10^3/uL (1.8-7.7); NEUT % 79 % (31-73); PLATELET COUNT 224 x10^3/uL (140-400); RED BLOOD COUNT 4.61 x10^6/uL (3.50-5.40); RED CELL DISTRIBUTION WIDTH 17.7 % (11.5-14.5); WHITE BLOOD COUNT 6.9 x10^3/uL (4.0-11.0)
--- NOTE | 2019-04-28 06:57 | PDOC ---
Infectious Disease Note Subjective Subjective Doing alright - tolerated her procedure No Flatus or BM yet. Hungry pain ok No F/C/N/V/SOA ROS ROS o/w neg Vital Sign Vital Signs Vital Signs Date Time Temp Pulse Resp B/P (MAP) Pulse Ox O2 Delivery O2 Flow Rate FiO2 04/28/19 06:24 Room Air 04/28/19 03:05 97.9 74 20 132/61 (84) 92 97.9 04/27/19 20:00 3.0 Physical Exam PHYSICAL EXAM GENERAL: Alert and NAD HEENT: Oral cavity, pharynx clear. NECK: Supple LUNGS: Clear to auscultation bilaterally HEART: S1, S2. ABDOMEN: Morbidly obese, soft, nontender EXTREMITIES: Right 3rd toe bandaged, dry. Left foot wound sressed Venous stasis b/l up to barron SKIN: warm to touch NEUROLOGIC: Responds appropriately RUE- PICC clean Labs Lab Laboratory Tests Test 04/27/19 07:33 04/27/19 11:36 04/27/19 16:39 04/27/19 20:21 Glucose (Fingerstick) 143 mg/dL (70-99) 135 mg/dL (70-99) 229 mg/dL (70-99) 315 mg/dL (70-99) Micro Microbiology 04/10/19 Blood Culture - Preliminary, Resulted NO GROWTH AFTER 1 DAY Objective Assessment S/p Dexamethasone 04/27 S/p L foot wound closure 04/27 L 3 rd toe osteomyelitis - infection - despite amoxicillin/Clinda Left third toe amputation metatarsal, with toe, single 04/10 ALISIA Cephalexin allegy -swelling and throat closing leukocytosis - now s/p steroids prior to surgery Yeast skin Dm Right plantar wound Plan Plan of Care Meropenem and fluconazole (04/10) off dapto Probiotics Cultures neg Wound care as directed d/w Dr. Sandoval who plans on closing wound 04/27 Eatng and doing well d/w nursing MEG BURNS MD Apr 28, 2019 06:57
[2019-04-28 07:00] VITALS: BP 135/43
[2019-04-28 07:04] LABS: ALBUMIN 2.8 g/dL (3.4-5.0); ALBUMIN/GLOBULIN RATIO 0.7 (1.0-1.7); CALCIUM 9.8 mg/dL (8.5-10.1); CREATININE 0.7 mg/dL (0.6-1.0); GFR 85.9; TOTAL BILIRUBIN 0.4 mg/dL (0.2-1.0); TOTAL PROTEIN 7.1 g/dL (6.4-8.2)
[2019-04-28] MEDS: FUROSEMIDE 40 MG TABLET. PO SCH (08:40)
[2019-04-28] MEDS: LACTOBACILLUS RHAMNOSUS GG 1 CAPSULE. PO SCH ×2 (08:40→22:15)
[2019-04-28] MEDS: GABAPENTIN 300 MG CAPSULE. PO SCH ×2 (08:40→14:10)
[2019-04-28] MEDS: INSULIN LISPRO 300 UNITS/3 ML VIAL. SQ SCH ×6 (08:46→17:29)
[2019-04-28 11:00] VITALS: BP 136/54
[2019-04-28] MEDS: FLUCONAZOLE 200MG/100ML PREMIX 100 ML IV SCH (14:09)
--- NOTE | 2019-04-28 14:15 | PDOC ---
PROGRESS NOTES Chief Complaint Chief Complaint 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 s/p amputation, 04/10, then partial excision MT and excisional debridement surrounding necrotic tissue, 04/14 then I and D below fascia w/ tendon involvement on 04/20. cultures no growth - closed 04/27 ALISIA - better, was 2/2 vasomotor nephropathy Cephalexin allergy -swelling and throat closing Leukocytosis - now s/p steroids prior to surgery, improved Yeast skin Right plantar and heel wound s/p debridement devitalized dermis, 04/14 DM with [id number] 9.7 and neuropathy and target organ damage - hx osteo, partial amputation big toe Obesity, morbid BMI 53 HTN - controlled Lymphedema Hyperkalemia 5.5 - improved Diastolic CHF echo 55% Left rotator cuff calcific tendinopathy. Severe protein-caloric malnutrition PULMONARY HYPERTENSION PA pressure 50 History of Present Illness History of Present Illness Seen and examined. . No distress, PICC clean. Still in foot pain. Renal function stable. To OR 04/27 for closure. She is trying to be placed in SNF. D/w RN 1 Vitals Vitals Vital Signs Date Time Temp Pulse Resp B/P (MAP) Pulse Ox O2 Delivery O2 Flow Rate FiO2 04/28/19 11:51 20 95 Room Air 04/28/19 11:00 98.0 75 136/54 (81) 98.0 04/27/19 20:00 3.0 Physical Exam Physical Exam GENERAL: Alert and NAD HEENT: Oral cavity, pharynx clear. NECK: Supple LUNGS: Clear to auscultation bilaterally HEART: S1, S2. ABDOMEN: Morbidly obese, soft, nontender EXTREMITIES: Right 3rd toe bandaged, dry. Left foot wound sressed Venous stasis b/l up to barron SKIN: warm to touch NEUROLOGIC: Responds appropriately RUE- PICC clean General: Alert, Oriented X3, Cooperative, No acute distress Heart: Regular rate, Normal S1, Normal S2, No murmurs Lungs: Clear Abdomen: Normal bowel sounds, Soft, No tenderness Extremities: No clubbing, No cyanosis, Other (left leg dressing, rt leg dressing, amputated toe wound vac PLANTAR ASPECT SWOLLEN) Skin: Other (left foot wound with wound vac and right foot wound) Labs LABS Laboratory Tests Test 04/27/19 16:39 04/27/19 20:21 04/28/19 06:35 04/28/19 07:55 Glucose (Fingerstick) 229 mg/dL (70-99) 315 mg/dL (70-99) 261 mg/dL (70-99) White Blood Count 6.9 x10^3/uL (4.0-11.0) Red Blood Count 4.61 x10^6/uL (3.50-5.40) Hemoglobin 13.2 g/dL (12.0-15.5) Hematocrit 40.3 % (36.0-47.0) Mean Corpuscular Volume 88 fL (79-100) Mean Corpuscular Hemoglobin 29 pg (25-35) Mean Corpuscular Hemoglobin Concent 33 g/dL (31-37) Red Cell Distribution Width 17.7 % (11.5-14.5) Platelet Count 224 x10^3/uL (140-400) Neutrophils (%) (Auto) 79 % (31-73) Lymphocytes (%) (Auto) 14 % (24-48) Monocytes (%) (Auto) 6 % (0-9) Eosinophils (%) (Auto) 0 % (0-3) Basophils (%) (Auto) 0 % (0-3) Neutrophils # (Auto) 5.5 x10^3/uL (1.8-7.7) Lymphocytes # (Auto) 1.0 x10^3/uL (1.0-4.8) Monocytes # (Auto) 0.4 x10^3/uL (0.0-1.1) Eosinophils # (Auto) 0.0 x10^3/uL (0.0-0.7) Basophils # (Auto) 0.0 x10^3/uL (0.0-0.2) Sodium Level 139 mmol/L (136-145) Potassium Level 5.0 mmol/L (3.5-5.1) Chloride Level 101 mmol/L (98-107) Carbon Dioxide Level 33 mmol/L (21-32) Anion Gap 5 (6-14) Blood Urea Nitrogen 19 mg/dL (7-20) Creatinine 0.7 mg/dL (0.6-1.0) Estimated GFR (Cockcroft-Gault) 85.9 BUN/Creatinine Ratio 27 (6-20) Glucose Level 267 mg/dL (70-99) Calcium Level 9.8 mg/dL (8.5-10.1) Total Bilirubin 0.4 mg/dL (0.2-1.0) Aspartate Amino Transf (AST/SGOT) 11 U/L (15-37) Alanine Aminotransferase (ALT/SGPT) 33 U/L (14-59) Alkaline Phosphatase 104 U/L (46-116) Total Protein 7.1 g/dL (6.4-8.2) Albumin 2.8 g/dL (3.4-5.0) Albumin/Globulin Ratio 0.7 (1.0-1.7) Test 04/28/19 11:57 Glucose (Fingerstick) 240 mg/dL (70-99) Comment Review of Relevant I have reviewed the following items adrienne (where applicable) has been applied. Labs Laboratory Tests Test 04/26/19 16:49 04/26/19 20:39 04/27/19 05:15 04/27/19 07:33 Glucose (Fingerstick) 176 mg/dL (70-99) 161 mg/dL (70-99) 143 mg/dL (70-99) White Blood Count 6.4 x10^3/uL (4.0-11.0) Red Blood Count 4.43 x10^6/uL (3.50-5.40) Hemoglobin 12.9 g/dL (12.0-15.5) Hematocrit 38.9 % (36.0-47.0) Mean Corpuscular Volume 88 fL (79-100) Mean Corpuscular Hemoglobin 29 pg (25-35) Mean Corpuscular Hemoglobin Concent 33 g/dL (31-37) Red Cell Distribution Width 17.6 % (11.5-14.5) Platelet Count 274 x10^3/uL (140-400) Neutrophils (%) (Auto) 48 % (31-73) Lymphocytes (%) (Auto) 34 % (24-48) Monocytes (%) (Auto) 11 % (0-9) Eosinophils (%) (Auto) 6 % (0-3) Basophils (%) (Auto) 1 % (0-3) Neutrophils # (Auto) 3.1 x10^3/uL (1.8-7.7) Lymphocytes # (Auto) 2.2 x10^3/uL (1.0-4.8) Monocytes # (Auto) 0.7 x10^3/uL (0.0-1.1) Eosinophils # (Auto) 0.4 x10^3/uL (0.0-0.7) Basophils # (Auto) 0.0 x10^3/uL (0.0-0.2) Sodium Level 140 mmol/L (136-145) Potassium Level 4.3 mmol/L (3.5-5.1) Chloride Level 103 mmol/L (98-107) Carbon Dioxide Level 35 mmol/L (21-32) Anion Gap 2 (6-14) Blood Urea Nitrogen 26 mg/dL (7-20) Creatinine 0.7 mg/dL (0.6-1.0) Estimated GFR (Cockcroft-Gault) 85.9 BUN/Creatinine Ratio 37 (6-20) Glucose Level 155 mg/dL (70-99) Calcium Level 9.3 mg/dL (8.5-10.1) Total Bilirubin 0.5 mg/dL (0.2-1.0) Aspartate Amino Transf (AST/SGOT) 11 U/L (15-37) Alanine Aminotransferase (ALT/SGPT) 31 U/L (14-59) Alkaline Phosphatase 100 U/L (46-116) Total Protein 6.6 g/dL (6.4-8.2) Albumin 2.7 g/dL (3.4-5.0) Albumin/Globulin Ratio 0.7 (1.0-1.7) Test 04/27/19 11:36 04/27/19 16:39 04/27/19 20:21 04/28/19 06:35 Glucose (Fingerstick) 135 mg/dL (70-99) 229 mg/dL (70-99) 315 mg/dL (70-99) White Blood Count 6.9 x10^3/uL (4.0-11.0) Red Blood Count 4.61 x10^6/uL (3.50-5.40) Hemoglobin 13.2 g/dL (12.0-15.5) Hematocrit 40.3 % (36.0-47.0) Mean Corpuscular Volume 88 fL (79-100) Mean Corpuscular Hemoglobin 29 pg (25-35) Mean Corpuscular Hemoglobin Concent 33 g/dL (31-37) Red Cell Distribution Width 17.7 % (11.5-14.5) Platelet Count 224 x10^3/uL (140-400) Neutrophils (%) (Auto) 79 % (31-73) Lymphocytes (%) (Auto) 14 % (24-48) Monocytes (%) (Auto) 6 % (0-9) Eosinophils (%) (Auto) 0 % (0-3) Basophils (%) (Auto) 0 % (0-3) Neutrophils # (Auto) 5.5 x10^3/uL (1.8-7.7) Lymphocytes # (Auto) 1.0 x10^3/uL (1.0-4.8) Monocytes # (Auto) 0.4 x10^3/uL (0.0-1.1) Eosinophils # (Auto) 0.0 x10^3/uL (0.0-0.7) Basophils # (Auto) 0.0 x10^3/uL (0.0-0.2) Sodium Level 139 mmol/L (136-145) Potassium Level 5.0 mmol/L (3.5-5.1) Chloride Level 101 mmol/L (98-107) Carbon Dioxide Level 33 mmol/L (21-32) Anion Gap 5 (6-14) Blood Urea Nitrogen 19 mg/dL (7-20) Creatinine 0.7 mg/dL (0.6-1.0) Estimated GFR (Cockcroft-Gault) 85.9 BUN/Creatinine Ratio 27 (6-20) Glucose Level 267 mg/dL (70-99) Calcium Level 9.8 mg/dL (8.5-10.1) Total Bilirubin 0.4 mg/dL (0.2-1.0) Aspartate Amino Transf (AST/SGOT) 11 U/L (15-37) Alanine Aminotransferase (ALT/SGPT) 33 U/L (14-59) Alkaline Phosphatase 104 U/L (46-116) Total Protein 7.1 g/dL (6.4-8.2) Albumin 2.8 g/dL (3.4-5.0) Albumin/Globulin Ratio 0.7 (1.0-1.7) Test 04/28/19 07:55 04/28/19 11:57 Glucose (Fingerstick) 261 mg/dL (70-99) 240 mg/dL (70-99) Laboratory Tests Test 04/27/19 16:39 04/27/19 20:21 04/28/19 06:35 04/28/19 07:55 Glucose (Fingerstick) 229 mg/dL (70-99) 315 mg/dL (70-99) 261 mg/dL (70-99) White Blood Count 6.9 x10^3/uL (4.0-11.0) Red Blood Count 4.61 x10^6/uL (3.50-5.40) Hemoglobin 13.2 g/dL (12.0-15.5) Hematocrit 40.3 % (36.0-47.0) Mean Corpuscular Volume 88 fL (79-100) Mean Corpuscular Hemoglobin 29 pg (25-35) Mean Corpuscular Hemoglobin Concent 33 g/dL (31-37) Red Cell Distribution Width 17.7 % (11.5-14.5) Platelet Count 224 x10^3/uL (140-400) Neutrophils (%) (Auto) 79 % (31-73) Lymphocytes (%) (Auto) 14 % (24-48) Monocytes (%) (Auto) 6 % (0-9) Eosinophils (%) (Auto) 0 % (0-3) Basophils (%) (Auto) 0 % (0-3) Neutrophils # (Auto) 5.5 x10^3/uL (1.8-7.7) Lymphocytes # (Auto) 1.0 x10^3/uL (1.0-4.8) Monocytes # (Auto) 0.4 x10^3/uL (0.0-1.1) Eosinophils # (Auto) 0.0 x10^3/uL (0.0-0.7) Basophils # (Auto) 0.0 x10^3/uL (0.0-0.2) Sodium Level 139 mmol/L (136-145) Potassium Level 5.0 mmol/L (3.5-5.1) Chloride Level 101 mmol/L (98-107) Carbon Dioxide Level 33 mmol/L (21-32) Anion Gap 5 (6-14) Blood Urea Nitrogen 19 mg/dL (7-20) Creatinine 0.7 mg/dL (0.6-1.0) Estimated GFR (Cockcroft-Gault) 85.9 BUN/Creatinine Ratio 27 (6-20) Glucose Level 267 mg/dL (70-99) Calcium Level 9.8 mg/dL (8.5-10.1) Total Bilirubin 0.4 mg/dL (0.2-1.0) Aspartate Amino Transf (AST/SGOT) 11 U/L (15-37) Alanine Aminotransferase (ALT/SGPT) 33 U/L (14-59) Alkaline Phosphatase 104 U/L (46-116) Total Protein 7.1 g/dL (6.4-8.2) Albumin 2.8 g/dL (3.4-5.0) Albumin/Globulin Ratio 0.7 (1.0-1.7) Test 04/28/19 11:57 Glucose (Fingerstick) 240 mg/dL (70-99) Microbiology 04/20/19 Anaerobic/Aerobic Culture - Final, Complete 04/20/19 Anaerobic Culture Result 1 (DEANNE) - Final, Complete 04/20/19 Aerobic Culture - Final, Complete 04/20/19 Aerobic Culture Result 1 (DEANNE) - Final, Complete 04/20/19 Gram Stain - Final, Complete 04/20/19 Gram Stain Result 1 (DEANNE) - Final, Complete 04/20/19 Gram Stain Result 2 (DEANNE) - Final, Complete 04/10/19 Blood Culture - Final, Complete NO GROWTH AFTER 5 DAYS Medications Current Medications Vancomycin HCl (Vanco Per Pharmacy) 1 each PRN DAILY PRN MC SEE COMMENTS Last administered on 04/10/19at 03:41; Start 04/09/19 at 22:30; Stop 04/10/19 at 12:36; Status DC Piperacillin Sod/ Tazobactam Sod (Zosyn Per Pharmacy) 1 each PRN DAILY PRN MC SEE COMMENTS; Start 04/09/19 at 22:30; Stop 04/10/19 at 12:35; Status DC Sodium Chloride 1,000 ml @ 100 mls/hr Q10H IV Last administered on 04/11/19at 05:23; Start 04/09/19 at 23:00; Stop 04/11/19 at 09:26; Status DC Acetaminophen/ Hydrocodone Bitart (Lortab 5/325) 1 tab PRN Q4HRS PRN PO MODERATE PAIN 4-6 Last administered on 04/27/19at 18:28; Start 04/09/19 at 22:30 Acetaminophen/ Hydrocodone Bitart (Lortab 5/325) 2 tab PRN Q4HRS PRN PO SEVERE PAIN 7-10 Last administered on 04/26/19at 21:13; Start 04/09/19 at 22:30 Insulin Glargine (Lantus Syringe) 70 unit QHS SQ Last administered on 04/22/19at 20:35; Start 04/09/19 at 23:00; Stop 04/23/19 at 17:03; Status DC Insulin Human Lispro (HumaLOG) 20 units 1X ONCE SQ Last administered on 04/09/19at 23:02; Start 04/09/19 at 23:00; Stop 04/09/19 at 23:01; Status DC Insulin Human Lispro (HumaLOG) 0-7 UNITS TIDWMEALS SQ ; Start 04/10/19 at 08:00; Stop 04/10/19 at 08:08; Status DC Dextrose (Dextrose 50%-Water Syringe) 12.5 gm PRN Q15MIN PRN IV SEE COMMENTS; Start 04/09/19 at 22:30; Status Cancel Dextrose 250 ml PRN Q15MIN PRN IV SEE COMMENTS; Start 04/09/19 at 22:30; Status Cancel Insulin Human Lispro (HumaLOG) 26 units TIDAC SQ Last administered on 04/22/19at 17:45; Start 04/10/19 at 07:30; Stop 04/23/19 at 12:05; Status DC Piperacillin Sod/ Tazobactam Sod 3.375 gm/Sodium Chloride 50 ml @ 100 mls/hr Q6HRS IV Last administered on 04/10/19at 11:35; Start 04/10/19 at 00:00; Stop 04/10/19 at 12:35; Status DC Gabapentin (Neurontin) 900 mg [id number] PO Last administered on 04/28/19at 14:10; Start 04/10/19 at 09:00 Gabapentin (Neurontin) 1,200 mg HS PO Last administered on 04/27/19at 21:10; Start 04/10/19 at 21:00 Atenolol (Tenormin) 40 mg DAILY PO ; Start 04/10/19 at 09:00; Status UNV Vancomycin HCl 2 gm/Sodium Chloride 500 ml @ 250 mls/hr Q12H IV Last administered on 04/10/19at 05:20; Start 04/10/19 at 05:00; Stop 04/10/19 at 12:36; Status DC Vancomycin HCl (Vancomycin Trough Level) 1 each 1X ONCE MC ; Start 04/11/19 at 04:30; Stop 04/11/19 at 04:31; Status Cancel Insulin Human Lispro (HumaLOG) 0-9 UNITS TIDWMEALS SQ Last administered on 04/28/19at 12:04; Start 04/10/19 at 12:00 Dextrose (Dextrose 50%-Water Syringe) 12.5 gm PRN Q15MIN PRN IV SEE COMMENTS; Start 04/10/19 at 08:15 Dextrose 250 ml PRN Q15MIN PRN IV SEE COMMENTS; Start 04/10/19 at 08:15 Acetaminophen (Tylenol) 500 mg PRN Q6HRS PRN PO MILD PAIN / TEMP Last administered on 04/12/19at 13:04; Start 04/10/19 at 08:15 Ondansetron HCl (Zofran) 4 mg PRN Q6HRS PRN IV NAUSEA/VOMITING Last administered on 04/13/19at 12:24; Start 04/10/19 at 08:15 Fentanyl Citrate (Fentanyl 2ml Vial) 50 mcg PRN Q2HR PRN IV PAIN Last administered on 04/28/19at 11:51; Start 04/10/19 at 08:15 Sodium Chloride ([place] Saline Nasal) 1 nadeem PRN Q2HRS PRN NS NASAL CONGESTION Last administered on 04/10/19at 15:54; Start 04/10/19 at 11:45 Fluconazole/ Sodium Chloride 100 ml @ 100 mls/hr Q24H IV Last administered on 04/28/19at 14:09; Start 04/10/19 at 13:00 Meropenem 1 gm/ Sodium Chloride 100 ml @ 200 mls/hr Q8HRS IV Last administered on 04/28/19at 14:09; Start 04/10/19 at 14:00 Daptomycin 900 mg/ Sodium Chloride 50 ml @ 100 mls/hr Q24H IV Last administered on 04/16/19at 12:24; Start 04/10/19 at 13:00; Stop 04/17/19 at 10:05; Status DC Fentanyl Citrate (Fentanyl 2ml Vial) 25 mcg PRN Q5MIN PRN IV MILD PAIN 1-3; Start 04/10/19 at 13:15; Stop 04/11/19 at 11:49; Status DC Fentanyl Citrate (Fentanyl 2ml Vial) 50 mcg PRN Q5MIN PRN IV MODERATE TO SEVERE PAIN; Start 04/10/19 at 13:15; Stop 04/11/19 at 11:49; Status DC Morphine Sulfate (Morphine Sulfate) 1 mg PRN Q10MIN PRN IV SEVERE PAIN 7-10; Start 04/10/19 at 13:15; Stop 04/11/19 at 11:50; Status DC Ringer's Solution 1,000 ml @ 30 mls/hr Q24H IV ; Start 04/10/19 at 13:14; Stop 04/11/19 at 01:13; Status DC Hydromorphone HCl (Dilaudid) 0.5 mg PRN Q10MIN PRN IV SEV PAIN, Second choice; Start 04/10/19 at 13:15; Stop 04/11/19 at 11:50; Status DC Prochlorperazine Edisylate (Compazine) 5 mg PACU PRN PRN IV NAUSEA, MRX1; Start 04/10/19 at 13:15; Stop 04/11/19 at 11:50; Status DC Fentanyl Citrate (Fentanyl 2ml Vial) 100 mcg STK-MED ONCE .ROUTE ; Start 04/10/19 at 13:20; Stop 04/10/19 at 13:21; Status DC Sevoflurane (Ultane) 30 ml STK-MED ONCE IH ; Start 04/10/19 at 13:20; Stop 04/10/19 at 13:21; Status DC Propofol 20 ml @ As Directed STK-MED ONCE IV ; Start 04/10/19 at 13:20; Stop 04/10/19 at 13:21; Status DC Dexamethasone Sodium Phosphate (Decadron) 4 mg STK-MED ONCE .ROUTE ; Start 04/10/19 at 13:21; Stop 04/10/19 at 13:21; Status DC Lidocaine HCl (Lidocaine Pf 2% Vial) 5 ml STK-MED ONCE .ROUTE ; Start 04/10/19 at 13:21; Stop 04/10/19 at 13:21; Status DC Ondansetron HCl (Zofran) 4 mg STK-MED ONCE .ROUTE ; Start 04/10/19 at 13:21; Stop 04/10/19 at 13:21; Status DC Phenylephrine HCl (PHENYLEPHRINE in 0.9% NACL PF) 1 mg STK-MED ONCE IV ; Start 04/10/19 at 14:27; Stop 04/10/19 at 14:27; Status DC Aspirin (Ecotrin) 325 mg QHS PO Last administered on 04/27/19at 21:10; Start 04/10/19 at 21:00 Oxycodone/ Acetaminophen (Percocet 5/325) 1 tab PRN Q4HRS PRN PO MODERATE PAIN, LAST OPTION Last administered on 04/14/19at 15:41; Start 04/10/19 at 15:15; Stop 04/15/19 at 16:17; Status DC Oxycodone/ Acetaminophen (Percocet 5/325) 2 tab PRN Q4HRS PRN PO SEVERE PAIN, LAST OPTION Last administered on 04/14/19at 20:33; Start 04/10/19 at 15:30; Stop 04/15/19 at 16:17; Status DC Insulin Glargine (Lantus Syringe) 30 unit DAILY SQ Last administered on 04/21/19at 08:53; Start 04/11/19 at 09:00; Stop 04/21/19 at 20:11; Status DC Sodium Polystyrene Sulfonate (Kayexalate) 15 gm 1X ONCE PO Last administered on 04/11/19at 10:24; Start 04/11/19 at 09:00; Stop 04/11/19 at 09:01; Status DC Meclizine HCl (Antivert) 12.5 mg PRN Q6HRS PRN PO DIZZINESS Last administered on 04/11/19at 10:24; Start 04/11/19 at 09:30 Albuterol Sulfate (Ventolin Neb Soln) 2.5 mg PRN Q4HRS PRN NEB SHORTNESS OF BREATH Last administered on 04/14/19at 15:30; Start 04/11/19 at 10:45; Stop 04/14/19 at 15:46; Status DC Albuterol Sulfate (Ventolin Neb Soln) 2.5 mg 1X ONCE NEB Last administered on 04/11/19at 11:54; Start 04/11/19 at 11:00; Stop 04/11/19 at 11:01; Status DC Lactobacillus Rhamnosus (Culturelle) 1 cap BID PO Last administered on 04/28/19at 08:40; Start 04/11/19 at 12:00 Furosemide (Lasix) 40 mg 1X ONCE IVP Last administered on 04/11/19at 20:18; Start 04/11/19 at 19:00; Stop 04/11/19 at 19:01; Status DC Perflutren Protein Type A Microsphe (Optison) 0.66 mg 1X ONCE IV ; Start 04/12/19 at 10:00; Stop 04/12/19 at 10:01; Status DC Furosemide (Lasix) 40 mg 1X ONCE IVP Last administered on 04/12/19at 11:44; Start 04/12/19 at 10:45; Stop 04/12/19 at 10:49; Status DC Atenolol (Tenormin) 50 mg BID PO Last administered on 04/22/19at 08:33; Start 04/13/19 at 14:00; Stop 04/22/19 at 08:54; Status DC Morphine Sulfate (Morphine Sulfate) 1 mg PRN Q10MIN PRN IV SEVERE PAIN 7-10; Start 04/14/19 at 07:00; Stop 04/15/19 at 06:59; Status DC Ringer's Solution 1,000 ml @ 30 mls/hr Q24H IV ; Start 04/14/19 at 07:00; Stop 04/14/19 at 18:59; Status DC Hydromorphone HCl (Dilaudid) 0.5 mg PRN Q10MIN PRN IV SEV PAIN, Second choice; Start 04/14/19 at 07:00; Stop 04/15/19 at 06:59; Status DC Prochlorperazine Edisylate (Compazine) 5 mg PACU PRN PRN IV NAUSEA, MRX1; Start 04/14/19 at 07:00; Stop 04/15/19 at 06:59; Status DC Furosemide (Lasix) 40 mg 1X ONCE IVP Last administered on 04/13/19at 17:35; Start 04/13/19 at 17:00; Stop 04/13/19 at 17:01; Status DC Furosemide (Lasix) 40 mg DAILY PO Last administered on 04/28/19at 08:40; Start 04/14/19 at 09:00 Atorvastatin Calcium (Lipitor) 20 mg QHS PO Last administered on 04/27/19at 21:10; Start 04/13/19 at 21:00 Insulin Human Lispro (HumaLOG) 3 units 1X ONCE SQ Last administered on 04/13/19at 20:44; Start 04/13/19 at 21:00; Stop 04/13/19 at 21:01; Status DC Propofol 20 ml @ As Directed STK-MED ONCE IV ; Start 04/14/19 at 07:35; Stop 04/14/19 at 07:36; Status DC Dexamethasone Sodium Phosphate (Decadron) 4 mg STK-MED ONCE .ROUTE ; Start 04/14/19 at 07:35; Stop 04/14/19 at 07:36; Status DC Lidocaine HCl (Lidocaine Pf 2% Vial) 5 ml STK-MED ONCE .ROUTE ; Start 04/14/19 at 07:35; Stop 04/14/19 at 07:36; Status DC Ondansetron HCl (Zofran) 4 mg STK-MED ONCE .ROUTE ; Start 04/14/19 at 07:35; Stop 04/14/19 at 07:36; Status DC Sevoflurane (Ultane) 60 ml STK-MED ONCE IH ; Start 04/14/19 at 07:36; Stop 04/14/19 at 07:36; Status DC Sevoflurane (Ultane) 15 ml STK-MED ONCE IH ; Start 04/14/19 at 09:22; Stop 04/14/19 at 09:23; Status DC Morphine Sulfate (Morphine Sulfate) 1 mg PRN Q10MIN PRN IV SEVERE PAIN 7-10; Start 04/14/19 at 09:45; Stop 04/14/19 at 20:00; Status DC Ringer's Solution 1,000 ml @ 30 mls/hr Q24H IV ; Start 04/14/19 at 09:32; Stop 04/14/19 at 21:31; Status DC Hydromorphone HCl (Dilaudid) 0.5 mg PRN Q10MIN PRN IV SEV PAIN, Second choice Last administered on 04/14/19at 10:06; Start 04/14/19 at 09:45; Stop 04/14/19 at 20:00; Status DC Prochlorperazine Edisylate (Compazine) 5 mg PACU PRN PRN IV NAUSEA, MRX1; Start 04/14/19 at 09:45; Stop 04/14/19 at 20:00; Status DC Fentanyl Citrate (Fentanyl 2ml Vial) 100 mcg STK-MED ONCE .ROUTE ; Start 04/14/19 at 09:33; Stop 04/14/19 at 09:33; Status DC Albuterol Sulfate (Ventolin Neb Soln) 2.5 mg RTQID NEB Last administered on 04/18/19at 07:20; Start 04/14/19 at 15:45; Stop 04/20/19 at 23:47; Status DC Morphine Sulfate (Morphine Sulfate) 1 mg PRN Q10MIN PRN IV SEVERE PAIN 7-10; Start 04/17/19 at 07:00; Stop 04/18/19 at 06:59; Status DC Ringer's Solution 1,000 ml @ 30 mls/hr Q24H IV ; Start 04/17/19 at 07:00; Stop 04/17/19 at 18:59; Status DC Lidocaine HCl (Xylocaine-Mpf 1% 2ml Vial) 2 ml PRN 1X PRN ID PRIOR TO IV START; Start 04/17/19 at 07:00; Stop 04/18/19 at 06:59; Status DC Hydromorphone HCl (Dilaudid) 0.5 mg PRN Q10MIN PRN IV SEV PAIN, Second choice; Start 04/17/19 at 07:00; Stop 04/18/19 at 06:59; Status DC Prochlorperazine Edisylate (Compazine) 5 mg PACU PRN PRN IV NAUSEA, MRX1; Start 04/17/19 at 07:00; Stop 04/18/19 at 06:59; Status DC Bupivacaine HCl/ Epinephrine Bitart (Sensorcaine-Epi 0.25%-1:[id number] Mpf) 30 ml 1X ONCE INJ ; Start 04/17/19 at 06:00; Stop 04/17/19 at 06:01; Status DC Gadoterate Meglumine (Dotarem) 29.8 ml 1X ONCE IVP Last administered on 04/17/19at 15:15; Start 04/17/19 at 15:00; Stop 04/17/19 at 15:06; Status DC Ondansetron HCl (Zofran) 4 mg PRN Q6HRS PRN IV NAUSEA/VOMITING; Start 04/20/19 at 07:00; Stop 04/21/19 at 06:59; Status DC Fentanyl Citrate (Fentanyl 2ml Vial) 25 mcg PRN Q5MIN PRN IV MILD PAIN 1-3; Start 04/20/19 at 07:00; Stop 04/21/19 at 06:59; Status DC Fentanyl Citrate (Fentanyl 2ml Vial) 50 mcg PRN Q5MIN PRN IV MODERATE TO SEVERE PAIN; Start 04/20/19 at 07:00; Stop 04/21/19 at 06:59; Status DC Morphine Sulfate (Morphine Sulfate) 1 mg PRN Q10MIN PRN IV SEVERE PAIN 7-10; Start 04/20/19 at 07:00; Stop 04/21/19 at 06:59; Status DC Ringer's Solution 1,000 ml @ 30 mls/hr Q24H IV Last administered on 04/20/19at 10:37; Start 04/20/19 at 07:00; Stop 04/20/19 at 18:59; Status DC Lidocaine HCl (Xylocaine-Mpf 1% 2ml Vial) 2 ml PRN 1X PRN ID PRIOR TO IV START; Start 04/20/19 at 07:00; Stop 04/21/19 at 06:59; Status DC Hydromorphone HCl (Dilaudid) 0.5 mg PRN Q10MIN PRN IV SEV PAIN, Second choice; Start 04/20/19 at 07:00; Stop 04/21/19 at 06:59; Status DC Prochlorperazine Edisylate (Compazine) 5 mg PACU PRN PRN IV NAUSEA, MRX1; Start 04/20/19 at 07:00; Stop 04/21/19 at 06:59; Status DC Bupivacaine HCl/ Epinephrine Bitart (Sensorcaine-Epi 0.25%-1:753038 Mpf) 30 ml 1X ONCE INJ ; Start 04/20/19 at 10:30; Stop 04/20/19 at 10:31; Status DC Sevoflurane (Ultane) 15 ml STK-MED ONCE IH ; Start 04/20/19 at 10:29; Stop 04/20/19 at 19:53; Status DC Fentanyl Citrate (Fentanyl 2ml Vial) 100 mcg STK-MED ONCE .ROUTE ; Start 04/20/19 at 10:29; Stop 04/20/19 at 19:53; Status DC Propofol 0 ml @ As Directed STK-MED ONCE IV ; Start 04/20/19 at 10:29; Stop 04/20/19 at 19:53; Status DC Lidocaine HCl (Lidocaine Pf 2% Vial) 5 ml STK-MED ONCE .ROUTE ; Start 04/20/19 at 10:29; Stop 04/20/19 at 19:53; Status DC Dexamethasone Sodium Phosphate (Decadron) 4 mg STK-MED ONCE .ROUTE ; Start 04/20/19 at 10:30; Stop 04/20/19 at 19:53; Status DC Ondansetron HCl (Zofran) 4 mg STK-MED ONCE .ROUTE ; Start 04/20/19 at 10:30; Stop 04/20/19 at 19:53; Status DC Phenylephrine HCl (PHENYLEPHRINE in 0.9% NACL PF) 1 mg STK-MED ONCE IV ; Start 04/20/19 at 10:30; Stop 04/20/19 at 19:53; Status DC Sevoflurane (Ultane) 60 ml STK-MED ONCE IH ; Start 04/20/19 at 10:37; Stop 04/20 at 19:53; Status DC Fentanyl Citrate (Fentanyl 2ml Vial) 100 mcg STK-MED ONCE .ROUTE ; Start 04/20/19 at 10:37; Stop 04/20/19 at 19:53; Status DC Propofol 20 ml @ As Directed STK-MED ONCE IV ; Start 04/20/19 at 10:38; Stop 04/20/19 at 19:53; Status DC Lidocaine HCl (Lidocaine Pf 2% Vial) 5 ml STK-MED ONCE .ROUTE ; Start 04/20/19 at 10:38; Stop 04/20/19 at 19:53; Status DC Ondansetron HCl (Zofran) 4 mg STK-MED ONCE .ROUTE ; Start 04/20/19 at 10:38; Stop 04/20/19 at 19:53; Status DC Dexamethasone Sodium Phosphate (Decadron) 4 mg STK-MED ONCE .ROUTE ; Start 04/20/19 at 10:38; Stop 04/20/19 at 19:53; Status DC Glycopyrrolate (Robinul) 1 mg STK-MED ONCE .ROUTE ; Start 04/20/19 at 11:10; Stop 04/20/19 at 19:53; Status DC Ephedrine Sulfate (ePHEDrine PF IN SALINE SYRINGE) 50 mg STK-MED ONCE IV ; Start 04/20/19 at 11:16; Stop 04/20/19 at 19:53; Status DC Fentanyl Citrate (Fentanyl 2ml Vial) 100 mcg STK-MED ONCE .ROUTE ; Start 04/20/19 at 12:16; Stop 04/20/19 at 19:53; Status DC Albuterol Sulfate (Ventolin Neb Soln) 2.5 mg PRN QID PRN NEB SHORTNESS OF BREATH; Start 04/21/19 at 08:00 Furosemide (Lasix) 20 mg 1X ONCE IVP Last administered on 04/21/19at 10:07; Start 04/21/19 at 09:30; Stop 04/21/19 at 09:32; Status DC Insulin Human Lispro (HumaLOG) 22 units TIDAC SQ Last administered on 04/23/19at 13:12; Start 04/23/19 at 12:09; Stop 04/23/19 at 17:03; Status DC Insulin Glargine (Lantus Syringe) 55 unit QHS SQ Last administered on 04/27/19at 21:00; Start 04/23/19 at 21:00 Insulin Human Lispro (HumaLOG) 15 units TIDAC SQ Last administered on 04/28/19at 12:03; Start 04/23/19 at 17:15 Bupivacaine HCl/ Epinephrine Bitart (Sensorcaine-Epi 0.25%-1:[id number] Mpf) 30 ml 1X ONCE INJ ; Start 04/27/19 at 06:30; Stop 04/27/19 at 06:31; Status DC Ondansetron HCl (Zofran) 4 mg PRN Q6HRS PRN IV NAUSEA/VOMITING; Start 04/27/19 at 12:30; Stop 04/28/19 at 12:29; Status DC Fentanyl Citrate (Fentanyl 2ml Vial) 25 mcg PRN Q5MIN PRN IV MILD PAIN 1-3; Start 04/27/19 at 12:30; Stop 04/28/19 at 12:29; Status DC Fentanyl Citrate (Fentanyl 2ml Vial) 50 mcg PRN Q5MIN PRN IV MODERATE TO SEVERE PAIN; Start 04/27/19 at 12:30; Stop 04/28/19 at 12:29; Status DC Morphine Sulfate (Morphine Sulfate) 1 mg PRN Q10MIN PRN IV SEVERE PAIN 7-10; Start 04/27/19 at 12:30; Stop 04/28/19 at 12:29; Status DC Ringer's Solution 1,000 ml @ 30 mls/hr Q24H IV Last administered on 04/27/19at 12:39; Start 04/27/19 at 12:26; Stop 04/28/19 at 00:25; Status DC Lidocaine HCl (Xylocaine-Mpf 1% 2ml Vial) 2 ml PRN 1X PRN ID PRIOR TO IV START; Start 04/27/19 at 12:30; Stop 04/28/19 at 12:29; Status DC Hydromorphone HCl (Dilaudid) 0.5 mg PRN Q10MIN PRN IV SEV PAIN, Second choice; Start 04/27/19 at 12:30; Stop 04/28/19 at 12:29; Status DC Prochlorperazine Edisylate (Compazine) 5 mg PACU PRN PRN IV NAUSEA, MRX1; Start 04/27/19 at 12:30; Stop 04/28/19 at 12:29; Status DC Propofol 20 ml @ As Directed STK-MED ONCE IV ; Start 04/27/19 at 12:39; Stop 04/27/19 at 12:39; Status DC Dexamethasone Sodium Phosphate (Decadron) 4 mg STK-MED ONCE .ROUTE ; Start 04/27/19 at 12:39; Stop 04/27/19 at 12:39; Status DC Lidocaine HCl (Lidocaine Pf 2% Vial) 5 ml STK-MED ONCE .ROUTE ; Start 04/27/19 at 12:39; Stop 04/27/19 at 12:39; Status DC Ondansetron HCl (Zofran) 4 mg STK-MED ONCE .ROUTE ; Start 04/27/19 at 12:39; Stop 04/27/19 at 12:39; Status DC Fentanyl Citrate (Fentanyl 2ml Vial) 100 mcg STK-MED ONCE .ROUTE ; Start 04/27/19 at 12:39; Stop 04/27/19 at 12:39; Status DC Ephedrine Sulfate (ePHEDrine PF IN SALINE SYRINGE) 50 mg STK-MED ONCE IV ; Start 04/27/19 at 13:43; Stop 04/27/19 at 13:47; Status DC Sevoflurane (Ultane) 30 ml STK-MED ONCE IH ; Start 04/27/19 at 13:43; Stop 04/27/19 at 13:47; Status DC Fentanyl Citrate (Fentanyl 2ml Vial) 100 mcg STK-MED ONCE .ROUTE ; Start 04/27/19 at 14:26; Stop 04/27/19 at 14:26; Status DC Active Scripts Active Reported Atenolol 50 Mg Tablet 1 Tab PO BID Vitals/I & O Vital Sign - Last 24 Hours 04/27/19 04/27/19 04/27/19 04/27/19 14:17 14:17 14:30 14:50 Temp 98.6 98.6 98.6 98.6 98.6 98.6 Pulse 80 74 72 Resp 16 16 18 B/P (MAP) 115/54 119/46 113/44 Pulse Ox 98 98 96 O2 Delivery Simple Mask Mask Simple Mask Room Air O2 Flow Rate 8 8 8 04/27/19 04/27/19 04/27/19 04/27/19 18:28 18:28 19:00 19:13 Temp 98.4 98.4 Pulse 91 Resp 20 B/P (MAP) 155/78 (103) Pulse Ox 95 O2 Delivery Nasal Cannula Nasal Cannula Nasal Cannula Nasal Cannula O2 Flow Rate 3.0 3.0 3.0 04/27/19 04/27/19 04/27/19 04/27/19 19:13 20:00 21:10 21:40 Resp 24 20 O2 Delivery Nasal Cannula Mask Room Air Room Air O2 Flow Rate 3.0 3.0 04/27/19 04/28/19 04/28/19 04/28/19 23:05 00:14 00:44 03:05 Temp 98.1 97.9 98.1 97.9 Pulse 77 74 Resp 20 22 20 B/P (MAP) 150/71 (97) 132/61 (84) Pulse Ox 95 92 O2 Delivery Nasal Cannula Nasal Cannula Room Air BiPAP/CPAP 04/28/19 04/28/19 04/28/19 04/28/19 06:24 06:54 07:00 08:15 Temp 97.8 97.8 Pulse 65 Resp 20 B/P (MAP) 135/43 (73) Pulse Ox 94 O2 Delivery Room Air Room Air Room Air Room Air 04/28/19 04/28/19 11:00 11:51 Temp 98.0 98.0 Pulse 75 Resp 20 20 B/P (MAP) 136/54 (81) Pulse Ox 91 95 O2 Delivery Room Air Room Air l Intake and Output 04/27/19 04/27/19 04/28/19 15:00 23:00 07:00 Output Total 10 ml 2000 ml 1800 ml Balance -10 ml -2000 ml -1800 ml AKIL KIM MD Apr 28, 2019 14:15
[2019-04-28 15:00] VITALS: BP 145/59
[2019-04-28 19:00] VITALS: BP 146/71
[2019-04-28] MEDS: GABAPENTIN 400 MG CAPSULE. PO SCH (22:15)
[2019-04-28] MEDS: ATORVASTATIN CALCIUM 20 MG TABLET PO SCH (22:15)
[2019-04-28] MEDS: ASPIRIN ENTERIC COATED 325 MG TABLET.DR. PO SCH (22:15)
[2019-04-28 23:00] VITALS: BP 125/68
[2019-04-28] MEDS: INSULIN GLARGINE SYRINGE. SQ SCH (23:07)
[2019-04-29] MEDS: fentaNYL PF VIAL 100 MCG/2 ML VIAL IV PRN ×3 (00:49→22:35)
[2019-04-29] MEDS: HYDROcodone/APAP 5/325MG 1 TAB TABLET PO PRN ×4 (02:22→16:51)
[2019-04-29 03:00] VITALS: BP 133/65
[2019-04-29] MEDS: MEROPENEM 1 GM in IV NORMAL SALINE 100ML 100 ML IV SCH ×3 (05:46→22:39)
[2019-04-29 06:00] LABS: BASO # 0.1 x10^3/uL (0.0-0.2); BASO % 1 % (0-3); EOS # 0.2 x10^3/uL (0.0-0.7); EOS % 2 % (0-3); HEMATOCRIT 38.3 % (36.0-47.0); HEMOGLOBIN 12.8 g/dL (12.0-15.5); LYMPH # 2.5 x10^3/uL (1.0-4.8); LYMPH % 34 % (24-48); MEAN CORPUSCULAR HEMOGLOBIN 29 pg (25-35); MEAN CORPUSCULAR HGB CONC 33 g/dL (31-37); MEAN CORPUSCULAR VOLUME 88 fL (79-100); MONO # 0.7 x10^3/uL (0.0-1.1); MONO % 9 % (0-9); NEUT # 4.1 x10^3/uL (1.8-7.7); NEUT % 54 % (31-73); PLATELET COUNT 225 x10^3/uL (140-400); RED BLOOD COUNT 4.35 x10^6/uL (3.50-5.40); RED CELL DISTRIBUTION WIDTH 17.7 % (11.5-14.5); WHITE BLOOD COUNT 7.5 x10^3/uL (4.0-11.0)
[2019-04-29 06:27] LABS: ALBUMIN 2.9 g/dL (3.4-5.0); ALBUMIN/GLOBULIN RATIO 0.7 (1.0-1.7); CALCIUM 9.3 mg/dL (8.5-10.1); CREATININE 0.6 mg/dL (0.6-1.0); GFR 102.7; POTASSIUM 4.8 mmol/L (3.5-5.1); TOTAL BILIRUBIN 0.3 mg/dL (0.2-1.0); TOTAL PROTEIN 6.9 g/dL (6.4-8.2)
[2019-04-29 07:00] VITALS: BP 139/66
[2019-04-29] MEDS: GABAPENTIN 300 MG CAPSULE. PO SCH ×2 (08:07→13:22)
[2019-04-29] MEDS: LACTOBACILLUS RHAMNOSUS GG 1 CAPSULE. PO SCH ×2 (08:07→22:39)
[2019-04-29] MEDS: FUROSEMIDE 40 MG TABLET. PO SCH (08:08)
[2019-04-29] MEDS: INSULIN LISPRO 300 UNITS/3 ML VIAL. SQ SCH ×6 (08:22→16:47)
[2019-04-29 11:00] VITALS: BP 149/64
[2019-04-29] MEDS: FLUCONAZOLE 200MG/100ML PREMIX 100 ML IV SCH (12:07)
[2019-04-29] MEDS ORDERED: ONDA4TAB7 PO (13:37)
[2019-04-29] MEDS ORDERED: ASPI325T11 PO (13:37)
[2019-04-29] MEDS ORDERED: MECL12.52 PO (13:37)
[2019-04-29] MEDS ORDERED: HYDR-2761 PO (13:37)
[2019-04-29] MEDS ORDERED: ACET500T68 PO (13:37)
[2019-04-29] MEDS ORDERED: GABA-689 PO (13:37)
[2019-04-29] MEDS ORDERED: GABA300C18 PO (13:37)
[2019-04-29] MEDS ORDERED: LACT1CAP19 PO (13:37)
[2019-04-29] MEDS ORDERED: ATOR20TA58 PO (13:37)
[2019-04-29] MEDS ORDERED: INSU100I11 SQ (13:37)
[2019-04-29] MEDS ORDERED: FURO40TA4 PO (13:37)
[2019-04-29] MEDS ORDERED: INSU100V8 SQ (13:37)
--- NOTE | 2019-04-29 13:40 | PDOC ---
PROGRESS NOTES Chief Complaint Chief Complaint 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 s/p amputation, 04/10, then partial excision MT and excisional debridement surrounding necrotic tissue, 04/14 then I and D below fascia w/ tendon involvement on 04/20. cultures no growth - closed 04/27 ALISIA - better, was 2/2 vasomotor nephropathy Cephalexin allergy -swelling and throat closing Leukocytosis - now s/p steroids prior to surgery, improved Yeast skin Right plantar and heel wound s/p debridement devitalized dermis, 04/14 DM with [id number] 9.7 and neuropathy and target organ damage - hx osteo, partial amputation big toe Obesity, morbid BMI 53 HTN - controlled Lymphedema Hyperkalemia 5.5 - improved Diastolic CHF echo 55% Left rotator cuff calcific tendinopathy. Severe protein-caloric malnutrition PULMONARY HYPERTENSION PA pressure 50 History of Present Illness History of Present Illness She required additional IV pain meds the past 2 days. She feels her pain is otherwise controlled with oral meds. She wishes to see her foot. No chest pain o r SOB D/w RN - I will add a fentanyl patch, only 1 72 hour patch, then d/c after that. 04/28. Seen and examined. . No distress, PICC clean. Still in foot pain. Renal function stable. To OR 04/27 for closure. She is trying to be placed in SNF. 04/27/19 Seen and examined. Still with overnight CPAP on. No distress, PICC clean. Still in foot pain. Renal function stable. To OR today for closure. She is trying to be placed in SNF. 04/26/19 Seen and examined. Still in pain, reasonably controlled. Plan for OR closure tomorrow. 04/25/19 Pt seen and examined at bedside Not in acute distress PICC line on right arm Still reports pain Wound dressing intact and dry Charts and labs reviewed BUN was 25, down from 35 Cr remains 0.7 D/w RN 04/24/19 Pt seen and examined at bedside Pt was pleasant and not in acute distress Wound vac dry Discussed care plan with pt Chart and labs reviewed D/w RN 04/23/19 Pt seen and examined by Dr. Alejo Long discussion with her about losing weight, HELPING Herself turn q2 and HELP ING herself do the bed pain herself - she had lots of complaints/issues earlier on about her care - seems to not be a highlight of her stay anymore 04/21: K 5.,5 - extra lasix 20 IVP now Easily aroused. Has had some low blood glucose over the past 24 hours. Discussed changing her 26 units scheduled to 22u. Pain reasonably controlled. No SOB or CP. Procedure Hx 04/10 Left 3rd toe amputation at the metatarsal 04/14 Left foot partial excision 3rd metatarsal with debridement of foot. Right foot debridement of open wounds plantar surface and toes 04/20 I&D with tendon involvement left foot with wound vac Vitals Vitals Vital Signs Date Time Temp Pulse Resp B/P (MAP) Pulse Ox O2 Delivery O2 Flow Rate FiO2 04/29/19 12:07 Room Air 04/29/19 11:00 98.3 63 18 149/64 (92) 94 98.3 04/29/19 03:22 3.0 Physical Exam Physical Exam GENERAL: Alert and NAD HEENT: Oral cavity, pharynx clear. NECK: Supple LUNGS: Clear to auscultation bilaterally HEART: S1, S2. ABDOMEN: Morbidly obese, soft, nontender EXTREMITIES: Right 3rd toe bandaged, dry. Left foot wound sressed Venous stasis b/l up to barron SKIN: warm to touch NEUROLOGIC: Responds appropriately RUE- PICC clean General: Alert, Oriented X3, Cooperative, No acute distress Heart: Regular rate, Normal S1, Normal S2, No murmurs Lungs: Clear Abdomen: Normal bowel sounds, Soft, No tenderness Extremities: No clubbing, No cyanosis, Other (left leg dressing, rt leg dressing, amputated toe wound vac PLANTAR ASPECT SWOLLEN) Skin: Other (left foot wound with wound vac and right foot wound) Labs LABS Laboratory Tests Test 04/28/19 17:13 04/28/19 20:49 04/29/19 05:50 04/29/19 07:49 Glucose (Fingerstick) 252 mg/dL (70-99) 211 mg/dL (70-99) 184 mg/dL (70-99) White Blood Count 7.5 x10^3/uL (4.0-11.0) Red Blood Count 4.35 x10^6/uL (3.50-5.40) Hemoglobin 12.8 g/dL (12.0-15.5) Hematocrit 38.3 % (36.0-47.0) Mean Corpuscular Volume 88 fL (79-100) Mean Corpuscular Hemoglobin 29 pg (25-35) Mean Corpuscular Hemoglobin Concent 33 g/dL (31-37) Red Cell Distribution Width 17.7 % (11.5-14.5) Platelet Count 225 x10^3/uL (140-400) Neutrophils (%) (Auto) 54 % (31-73) Lymphocytes (%) (Auto) 34 % (24-48) Monocytes (%) (Auto) 9 % (0-9) Eosinophils (%) (Auto) 2 % (0-3) Basophils (%) (Auto) 1 % (0-3) Neutrophils # (Auto) 4.1 x10^3/uL (1.8-7.7) Lymphocytes # (Auto) 2.5 x10^3/uL (1.0-4.8) Monocytes # (Auto) 0.7 x10^3/uL (0.0-1.1) Eosinophils # (Auto) 0.2 x10^3/uL (0.0-0.7) Basophils # (Auto) 0.1 x10^3/uL (0.0-0.2) Sodium Level 143 mmol/L (136-145) Potassium Level 4.8 mmol/L (3.5-5.1) Chloride Level 104 mmol/L (98-107) Carbon Dioxide Level 32 mmol/L (21-32) Anion Gap 7 (6-14) Blood Urea Nitrogen 25 mg/dL (7-20) Creatinine 0.6 mg/dL (0.6-1.0) Estimated GFR (Cockcroft-Gault) 102.7 BUN/Creatinine Ratio 42 (6-20) Glucose Level 182 mg/dL (70-99) Calcium Level 9.3 mg/dL (8.5-10.1) Total Bilirubin 0.3 mg/dL (0.2-1.0) Aspartate Amino Transf (AST/SGOT) 10 U/L (15-37) Alanine Aminotransferase (ALT/SGPT) 32 U/L (14-59) Alkaline Phosphatase 96 U/L (46-116) Total Protein 6.9 g/dL (6.4-8.2) Albumin 2.9 g/dL (3.4-5.0) Albumin/Globulin Ratio 0.7 (1.0-1.7) Test 04/29/19 11:25 Glucose (Fingerstick) 167 mg/dL (70-99) Comment Review of Relevant I have reviewed the following items adrienne (where applicable) has been applied. Labs Laboratory Tests Test 04/27/19 16:39 04/27/19 20:21 04/28/19 06:35 04/28/19 07:55 Glucose (Fingerstick) 229 mg/dL (70-99) 315 mg/dL (70-99) 261 mg/dL (70-99) White Blood Count 6.9 x10^3/uL (4.0-11.0) Red Blood Count 4.61 x10^6/uL (3.50-5.40) Hemoglobin 13.2 g/dL (12.0-15.5) Hematocrit 40.3 % (36.0-47.0) Mean Corpuscular Volume 88 fL (79-100) Mean Corpuscular Hemoglobin 29 pg (25-35) Mean Corpuscular Hemoglobin Concent 33 g/dL (31-37) Red Cell Distribution Width 17.7 % (11.5-14.5) Platelet Count 224 x10^3/uL (140-400) Neutrophils (%) (Auto) 79 % (31-73) Lymphocytes (%) (Auto) 14 % (24-48) Monocytes (%) (Auto) 6 % (0-9) Eosinophils (%) (Auto) 0 % (0-3) Basophils (%) (Auto) 0 % (0-3) Neutrophils # (Auto) 5.5 x10^3/uL (1.8-7.7) Lymphocytes # (Auto) 1.0 x10^3/uL (1.0-4.8) Monocytes # (Auto) 0.4 x10^3/uL (0.0-1.1) Eosinophils # (Auto) 0.0 x10^3/uL (0.0-0.7) Basophils # (Auto) 0.0 x10^3/uL (0.0-0.2) Sodium Level 139 mmol/L (136-145) Potassium Level 5.0 mmol/L (3.5-5.1) Chloride Level 101 mmol/L (98-107) Carbon Dioxide Level 33 mmol/L (21-32) Anion Gap 5 (6-14) Blood Urea Nitrogen 19 mg/dL (7-20) Creatinine 0.7 mg/dL (0.6-1.0) Estimated GFR (Cockcroft-Gault) 85.9 BUN/Creatinine Ratio 27 (6-20) Glucose Level 267 mg/dL (70-99) Calcium Level 9.8 mg/dL (8.5-10.1) Total Bilirubin 0.4 mg/dL (0.2-1.0) Aspartate Amino Transf (AST/SGOT) 11 U/L (15-37) Alanine Aminotransferase (ALT/SGPT) 33 U/L (14-59) Alkaline Phosphatase 104 U/L (46-116) Total Protein 7.1 g/dL (6.4-8.2) Albumin 2.8 g/dL (3.4-5.0) Albumin/Globulin Ratio 0.7 (1.0-1.7) Test 04/28/19 11:57 04/28/19 17:13 04/28/19 20:49 04/29/19 05:50 Glucose (Fingerstick) 240 mg/dL (70-99) 252 mg/dL (70-99) 211 mg/dL (70-99) White Blood Count 7.5 x10^3/uL (4.0-11.0) Red Blood Count 4.35 x10^6/uL (3.50-5.40) Hemoglobin 12.8 g/dL (12.0-15.5) Hematocrit 38.3 % (36.0-47.0) Mean Corpuscular Volume 88 fL (79-100) Mean Corpuscular Hemoglobin 29 pg (25-35) Mean Corpuscular Hemoglobin Concent 33 g/dL (31-37) Red Cell Distribution Width 17.7 % (11.5-14.5) Platelet Count 225 x10^3/uL (140-400) Neutrophils (%) (Auto) 54 % (31-73) Lymphocytes (%) (Auto) 34 % (24-48) Monocytes (%) (Auto) 9 % (0-9) Eosinophils (%) (Auto) 2 % (0-3) Basophils (%) (Auto) 1 % (0-3) Neutrophils # (Auto) 4.1 x10^3/uL (1.8-7.7) Lymphocytes # (Auto) 2.5 x10^3/uL (1.0-4.8) Monocytes # (Auto) 0.7 x10^3/uL (0.0-1.1) Eosinophils # (Auto) 0.2 x10^3/uL (0.0-0.7) Basophils # (Auto) 0.1 x10^3/uL (0.0-0.2) Sodium Level 143 mmol/L (136-145) Potassium Level 4.8 mmol/L (3.5-5.1) Chloride Level 104 mmol/L (98-107) Carbon Dioxide Level 32 mmol/L (21-32) Anion Gap 7 (6-14) Blood Urea Nitrogen 25 mg/dL (7-20) Creatinine 0.6 mg/dL (0.6-1.0) Estimated GFR (Cockcroft-Gault) 102.7 BUN/Creatinine Ratio 42 (6-20) Glucose Level 182 mg/dL (70-99) Calcium Level 9.3 mg/dL (8.5-10.1) Total Bilirubin 0.3 mg/dL (0.2-1.0) Aspartate Amino Transf (AST/SGOT) 10 U/L (15-37) Alanine Aminotransferase (ALT/SGPT) 32 U/L (14-59) Alkaline Phosphatase 96 U/L (46-116) Total Protein 6.9 g/dL (6.4-8.2) Albumin 2.9 g/dL (3.4-5.0) Albumin/Globulin Ratio 0.7 (1.0-1.7) Test 04/29/19 07:49 04/29/19 11:25 Glucose (Fingerstick) 184 mg/dL (70-99) 167 mg/dL (70-99) Laboratory Tests Test 04/28/19 17:13 04/28/19 20:49 04/29/19 05:50 04/29/19 07:49 Glucose (Fingerstick) 252 mg/dL (70-99) 211 mg/dL (70-99) 184 mg/dL (70-99) White Blood Count 7.5 x10^3/uL (4.0-11.0) Red Blood Count 4.35 x10^6/uL (3.50-5.40) Hemoglobin 12.8 g/dL (12.0-15.5) Hematocrit 38.3 % (36.0-47.0) Mean Corpuscular Volume 88 fL (79-100) Mean Corpuscular Hemoglobin 29 pg (25-35) Mean Corpuscular Hemoglobin Concent 33 g/dL (31-37) Red Cell Distribution Width 17.7 % (11.5-14.5) Platelet Count 225 x10^3/uL (140-400) Neutrophils (%) (Auto) 54 % (31-73) Lymphocytes (%) (Auto) 34 % (24-48) Monocytes (%) (Auto) 9 % (0-9) Eosinophils (%) (Auto) 2 % (0-3) Basophils (%) (Auto) 1 % (0-3) Neutrophils # (Auto) 4.1 x10^3/uL (1.8-7.7) Lymphocytes # (Auto) 2.5 x10^3/uL (1.0-4.8) Monocytes # (Auto) 0.7 x10^3/uL (0.0-1.1) Eosinophils # (Auto) 0.2 x10^3/uL (0.0-0.7) Basophils # (Auto) 0.1 x10^3/uL (0.0-0.2) Sodium Level 143 mmol/L (136-145) Potassium Level 4.8 mmol/L (3.5-5.1) Chloride Level 104 mmol/L (98-107) Carbon Dioxide Level 32 mmol/L (21-32) Anion Gap 7 (6-14) Blood Urea Nitrogen 25 mg/dL (7-20) Creatinine 0.6 mg/dL (0.6-1.0) Estimated GFR (Cockcroft-Gault) 102.7 BUN/Creatinine Ratio 42 (6-20) Glucose Level 182 mg/dL (70-99) Calcium Level 9.3 mg/dL (8.5-10.1) Total Bilirubin 0.3 mg/dL (0.2-1.0) Aspartate Amino Transf (AST/SGOT) 10 U/L (15-37) Alanine Aminotransferase (ALT/SGPT) 32 U/L (14-59) Alkaline Phosphatase 96 U/L (46-116) Total Protein 6.9 g/dL (6.4-8.2) Albumin 2.9 g/dL (3.4-5.0) Albumin/Globulin Ratio 0.7 (1.0-1.7) Test 04/29/19 11:25 Glucose (Fingerstick) 167 mg/dL (70-99) Microbiology 04/20/19 Anaerobic/Aerobic Culture - Final, Complete 04/20/19 Anaerobic Culture Result 1 (DEANNE) - Final, Complete 04/20/19 Aerobic Culture - Final, Complete 04/20/19 Aerobic Culture Result 1 (DEANNE) - Final, Complete 04/20/19 Gram Stain - Final, Complete 04/20/19 Gram Stain Result 1 (DEANNE) - Final, Complete 04/20/19 Gram Stain Result 2 (DEANNE) - Final, Complete 04/10/19 Blood Culture - Final, Complete NO GROWTH AFTER 5 DAYS Medications Current Medications Vancomycin HCl (Vanco Per Pharmacy) 1 each PRN DAILY PRN MC SEE COMMENTS Last administered on 04/10/19at 03:41; Start 04/09/19 at 22:30; Stop 04/10/19 at 12:36; Status DC Piperacillin Sod/ Tazobactam Sod (Zosyn Per Pharmacy) 1 each PRN DAILY PRN MC SEE COMMENTS; Start 04/09/19 at 22:30; Stop 04/10/19 at 12:35; Status DC Sodium Chloride 1,000 ml @ 100 mls/hr Q10H IV Last administered on 04/11/19at 05:23; Start 04/09/19 at 23:00; Stop 04/11/19 at 09:26; Status DC Acetaminophen/ Hydrocodone Bitart (Lortab 5/325) 1 tab PRN Q4HRS PRN PO MODERATE PAIN 4-6 Last administered on 04/27/19at 18:28; Start 04/09/19 at 22:30 Acetaminophen/ Hydrocodone Bitart (Lortab 5/325) 2 tab PRN Q4HRS PRN PO SEVERE PAIN 7-10 Last administered on 04/29/19at 12:07; Start 04/09/19 at 22:30 Insulin Glargine (Lantus Syringe) 70 unit QHS SQ Last administered on 04/22/19at 20:35; Start 04/09/19 at 23:00; Stop 04/23/19 at 17:03; Status DC Insulin Human Lispro (HumaLOG) 20 units 1X ONCE SQ Last administered on 04/09/19at 23:02; Start 04/09/19 at 23:00; Stop 04/09/19 at 23:01; Status DC Insulin Human Lispro (HumaLOG) 0-7 UNITS TIDWMEALS SQ ; Start 04/10/19 at 08:00; Stop 04/10/19 at 08:08; Status DC Dextrose (Dextrose 50%-Water Syringe) 12.5 gm PRN Q15MIN PRN IV SEE COMMENTS; Start 04/09/19 at 22:30; Status Cancel Dextrose 250 ml PRN Q15MIN PRN IV SEE COMMENTS; Start 04/09/19 at 22:30; Status Cancel Insulin Human Lispro (HumaLOG) 26 units TIDAC SQ Last administered on 04/22/19at 17:45; Start 04/10/19 at 07:30; Stop 04/23/19 at 12:05; Status DC Piperacillin Sod/ Tazobactam Sod 3.375 gm/Sodium Chloride 50 ml @ 100 mls/hr Q6HRS IV Last administered on 04/10/19at 11:35; Start 04/10/19 at 00:00; Stop 04/10/19 at 12:35; Status DC Gabapentin (Neurontin) 900 mg BID92 PO Last administered on 04/29/19at 13:22; Start 04/10/19 at 09:00 Gabapentin (Neurontin) 1,200 mg HS PO Last administered on 04/28/19at 22:15; Start 04/10/19 at 21:00 Atenolol (Tenormin) 40 mg DAILY PO ; Start 04/10/19 at 09:00; Status UNV Vancomycin HCl 2 gm/Sodium Chloride 500 ml @ 250 mls/hr Q12H IV Last administered on 04/10/19at 05:20; Start 04/10/19 at 05:00; Stop 04/10/19 at 12:36 ; Status DC Vancomycin HCl (Vancomycin Trough Level) 1 each 1X ONCE MC ; Start 04/11/19 at 04:30; Stop 04/11/19 at 04:31; Status Cancel Insulin Human Lispro (HumaLOG) 0-9 UNITS TIDWMEALS SQ Last administered on 04/29/19at 12:16; Start 04/10/19 at 12:00 Dextrose (Dextrose 50%-Water Syringe) 12.5 gm PRN Q15MIN PRN IV SEE COMMENTS; Start 04/10/19 at 08:15 Dextrose 250 ml PRN Q15MIN PRN IV SEE COMMENTS; Start 04/10/19 at 08:15 Acetaminophen (Tylenol) 500 mg PRN Q6HRS PRN PO MILD PAIN / TEMP Last administe red on 04/12/19at 13:04; Start 04/10/19 at 08:15 Ondansetron HCl (Zofran) 4 mg PRN Q6HRS PRN IV NAUSEA/VOMITING Last administere d on 04/13/19at 12:24; Start 04/10/19 at 08:15 Fentanyl Citrate (Fentanyl 2ml Vial) 50 mcg PRN Q2HR PRN IV PAIN Last administered on 04/29/19 09:56; Start 04/10/19 at 08:15 Sodium Chloride ([place] Saline Nasal) 1 nadeem PRN Q2HRS PRN NS NASAL CONGESTION Last administered on 04/10/19at 15:54; Start 04/10/19 at 11:45 Fluconazole/ Sodium Chloride 100 ml @ 100 mls/hr Q24H IV Last administered on 04/29/19 12:07; Start 04/10/19 at 13:00 Meropenem 1 gm/ Sodium Chloride 100 ml @ 200 mls/hr Q8HRS IV Last administered on 04/29/19 13:22; Start 04/10/19 at 14:00 Daptomycin 900 mg/ Sodium Chloride 50 ml @ 100 mls/hr Q24H IV Last administered on 04/16/19at 12:24; Start 04/10/19 at 13:00; Stop 04/17/19 at 10:05; Status DC Fentanyl Citrate (Fentanyl 2ml Vial) 25 mcg PRN Q5MIN PRN IV MILD PAIN 1-3; Start 04/10/19 at 13:15; Stop 04/11/19 at 11:49; Status DC Fentanyl Citrate (Fentanyl 2ml Vial) 50 mcg PRN Q5MIN PRN IV MODERATE TO SEVERE PAIN; Start 04/10/19 at 13:15; Stop 04/11/19 at 11:49; Status DC Morphine Sulfate (Morphine Sulfate) 1 mg PRN Q10MIN PRN IV SEVERE PAIN 7-10; Start 04/10/19 at 13:15; Stop 04/11/19 at 11:50; Status DC Ringer's Solution 1,000 ml @ 30 mls/hr Q24H IV ; Start 04/10/19 at 13:14; Stop 04/11/19 at 01:13; Status DC Hydromorphone HCl (Dilaudid) 0.5 mg PRN Q10MIN PRN IV SEV PAIN, Second choice; Start 04/10/19 at 13:15; Stop 04/11/19 at 11:50; Status DC Prochlorperazine Edisylate (Compazine) 5 mg PACU PRN PRN IV NAUSEA, MRX1; Start 04/10/19 at 13:15; Stop 04/11/19 at 11:50; Status DC Fentanyl Citrate (Fentanyl 2ml Vial) 100 mcg STK-MED ONCE .ROUTE ; Start 04/10/19 at 13:20; Stop 04/10/19 at 13:21; Status DC Sevoflurane (Ultane) 30 ml STK-MED ONCE IH ; Start 04/10/19 at 13:20; Stop 04/10/19 at 13:21; Status DC Propofol 20 ml @ As Directed STK-MED ONCE IV ; Start 04/10/19 at 13:20; Stop 04/10/19 at 13:21; Status DC Dexamethasone Sodium Phosphate (Decadron) 4 mg STK-MED ONCE .ROUTE ; Start 04/10/19 at 13:21; Stop 04/10/19 at 13:21; Status DC Lidocaine HCl (Lidocaine Pf 2% Vial) 5 ml STK-MED ONCE .ROUTE ; Start 04/10/19 at 13:21; Stop 04/10/19 at 13:21; Status DC Ondansetron HCl (Zofran) 4 mg STK-MED ONCE .ROUTE ; Start 04/10/19 at 13:21; Stop 04/10/19 at 13:21; Status DC Phenylephrine HCl (PHENYLEPHRINE in 0.9% NACL PF) 1 mg STK-MED ONCE IV ; Start 04/10/19 at 14:27; Stop 04/10/19 at 14:27; Status DC Aspirin (Ecotrin) 325 mg QHS PO Last administered on 04/28/19at 22:15; Start 04/10/19 at 21:00 Oxycodone/ Acetaminophen (Percocet 5/325) 1 tab PRN Q4HRS PRN PO MODERATE PAIN, LAST OPTION Last administered on 04/14/19at 15:41; Start 04/10/19 at 15:15; Stop 04/15/19 at 16:17; Status DC Oxycodone/ Acetaminophen (Percocet 5/325) 2 tab PRN Q4HRS PRN PO SEVERE PAIN, LAST OPTION Last administered on 04/14/19at 20:33; Start 04/10/19 at 15:30; Stop 04/15/19 at 16:17; Status DC Insulin Glargine (Lantus Syringe) 30 unit DAILY SQ Last administered on 04/21/19at 08:53; Start 04/11/19 at 09:00; Stop 04/21/19 at 20:11; Status DC Sodium Polystyrene Sulfonate (Kayexalate) 15 gm 1X ONCE PO Last administered on 04/11/19at 10:24; Start 04/11/19 at 09:00; Stop 04/11/19 at 09:01; Status DC Meclizine HCl (Antivert) 12.5 mg PRN Q6HRS PRN PO DIZZINESS Last administered on 04/11/19at 10:24; Start 04/11/19 at 09:30 Albuterol Sulfate (Ventolin Neb Soln) 2.5 mg PRN Q4HRS PRN NEB SHORTNESS OF BREATH Last administered on 04/14/19at 15:30; Start 04/11/19 at 10:45; Stop 04/14/19 at 15:46; Status DC Albuterol Sulfate (Ventolin Neb Soln) 2.5 mg 1X ONCE NEB Last administered on 04/11/19at 11:54; Start 04/11/19 at 11:00; Stop 04/11/19 at 11:01; Status DC Lactobacillus Rhamnosus (Culturelle) 1 cap BID PO Last administered on 04/29/19at 08:07; Start 04/11/19 at 12:00 Furosemide (Lasix) 40 mg 1X ONCE IVP Last administered on 04/11/19at 20:18; Start 04/11/19 at 19:00; Stop 04/11/19 at 19:01; Status DC Perflutren Protein Type A Microsphe (Optison) 0.66 mg 1X ONCE IV ; Start 04/12/19 at 10:00; Stop 04/12/19 at 10:01; Status DC Furosemide (Lasix) 40 mg 1X ONCE IVP Last administered on 04/12/19at 11:44; Start 04/12/19 at 10:45; Stop 04/12/19 at 10:49; Status DC Atenolol (Tenormin) 50 mg BID PO Last administered on 04/22/19at 08:33; Start 04/13/19 at 14:00; Stop 04/22/19 at 08:54; Status DC Morphine Sulfate (Morphine Sulfate) 1 mg PRN Q10MIN PRN IV SEVERE PAIN 7-10; Start 04/14/19 at 07:00; Stop 04/15/19 at 06:59; Status DC Ringer's Solution 1,000 ml @ 30 mls/hr Q24H IV ; Start 04/14/19 at 07:00; Stop 04/14/19 at 18:59; Status DC Hydromorphone HCl (Dilaudid) 0.5 mg PRN Q10MIN PRN IV SEV PAIN, Second choice; Start 04/14/19 at 07:00; Stop 04/15/19 at 06:59; Status DC Prochlorperazine Edisylate (Compazine) 5 mg PACU PRN PRN IV NAUSEA, MRX1; Start 04/14/19 at 07:00; Stop 04/15/19 at 06:59; Status DC Furosemide (Lasix) 40 mg 1X ONCE IVP Last administered on 04/13/19at 17:35; Start 04/13/19 at 17:00; Stop 04/13/19 at 17:01; Status DC Furosemide (Lasix) 40 mg DAILY PO Last administered on 04/29/19at 08:08; Start 04/14/19 at 09:00 Atorvastatin Calcium (Lipitor) 20 mg QHS PO Last administered on 04/28/19at 22:15; Start 04/13/19 at 21:00 Insulin Human Lispro (HumaLOG) 3 units 1X ONCE SQ Last administered on 04/13/19at 20:44; Start 04/13/19 at 21:00; Stop 04/13/19 at 21:01; Status DC Propofol 20 ml @ As Directed STK-MED ONCE IV ; Start 04/14/19 at 07:35; Stop 04/14/19 at 07:36; Status DC Dexamethasone Sodium Phosphate (Decadron) 4 mg STK-MED ONCE .ROUTE ; Start 04/14/19 at 07:35; Stop 04/14/19 at 07:36; Status DC Lidocaine HCl (Lidocaine Pf 2% Vial) 5 ml STK-MED ONCE .ROUTE ; Start 04/14/19 at 07:35; Stop 04/14/19 at 07:36; Status DC Ondansetron HCl (Zofran) 4 mg STK-MED ONCE .ROUTE ; Start 04/14/19 at 07:35; Stop 04/14/19 at 07:36; Status DC Sevoflurane (Ultane) 60 ml STK-MED ONCE IH ; Start 04/14/19 at 07:36; Stop 04/14/19 at 07:36; Status DC Sevoflurane (Ultane) 15 ml STK-MED ONCE IH ; Start 04/14/19 at 09:22; Stop 04/14/19 at 09:23; Status DC Morphine Sulfate (Morphine Sulfate) 1 mg PRN Q10MIN PRN IV SEVERE PAIN 7-10; Start 04/14/19 at 09:45; Stop 04/14/19 at 20:00; Status DC Ringer's Solution 1,000 ml @ 30 mls/hr Q24H IV ; Start 04/14/19 at 09:32; Stop 04/14/19 at 21:31; Status DC Hydromorphone HCl (Dilaudid) 0.5 mg PRN Q10MIN PRN IV SEV PAIN, Second choice Last administered on 04/14/19at 10:06; Start 04/14/19 at 09:45; Stop 04/14/19 at 20:00; Status DC Prochlorperazine Edisylate (Compazine) 5 mg PACU PRN PRN IV NAUSEA, MRX1; Start 04/14/19 at 09:45; Stop 04/14/19 at 20:00; Status DC Fentanyl Citrate (Fentanyl 2ml Vial) 100 mcg STK-MED ONCE .ROUTE ; Start 04/14/19 at 09:33; Stop 04/14/19 at 09:33; Status DC Albuterol Sulfate (Ventolin Neb Soln) 2.5 mg RTQID NEB Last administered on 04/18/19at 07:20; Start 04/14/19 at 15:45; Stop 04/20/19 at 23:47; Status DC Morphine Sulfate (Morphine Sulfate) 1 mg PRN Q10MIN PRN IV SEVERE PAIN 7-10; Start 04/17/19 at 07:00; Stop 04/18/19 at 06:59; Status DC Ringer's Solution 1,000 ml @ 30 mls/hr Q24H IV ; Start 04/17/19 at 07:00; Stop 04/17/19 at 18:59; Status DC Lidocaine HCl (Xylocaine-Mpf 1% 2ml Vial) 2 ml PRN 1X PRN ID PRIOR TO IV START; Start 04/17/19 at 07:00; Stop 04/18/19 at 06:59; Status DC Hydromorphone HCl (Dilaudid) 0.5 mg PRN Q10MIN PRN IV SEV PAIN, Second choice; Start 04/17/19 at 07:00; Stop 04/18/19 at 06:59; Status DC Prochlorperazine Edisylate (Compazine) 5 mg PACU PRN PRN IV NAUSEA, MRX1; Start 04/17/19 at 07:00; Stop 04/18/19 at 06:59; Status DC Bupivacaine HCl/ Epinephrine Bitart (Sensorcaine-Epi 0.25%-1:510994 Mpf) 30 ml 1X ONCE INJ ; Start 04/17/19 at 06:00; Stop 04/17/19 at 06:01; Status DC Gadoterate Meglumine (Dotarem) 29.8 ml 1X ONCE IVP Last administered on 04/17/19at 15:15; Start 04/17/19 at 15:00; Stop 04/17/19 at 15:06; Status DC Ondansetron HCl (Zofran) 4 mg PRN Q6HRS PRN IV NAUSEA/VOMITING; Start 04/20/19 at 07:00; Stop 04/21/19 at 06:59; Status DC Fentanyl Citrate (Fentanyl 2ml Vial) 25 mcg PRN Q5MIN PRN IV MILD PAIN 1-3; Start 04/20/19 at 07:00; Stop 04/21/19 at 06:59; Status DC Fentanyl Citrate (Fentanyl 2ml Vial) 50 mcg PRN Q5MIN PRN IV MODERATE TO SEVERE PAIN; Start 04/20/19 at 07:00; Stop 04/21/19 at 06:59; Status DC Morphine Sulfate (Morphine Sulfate) 1 mg PRN Q10MIN PRN IV SEVERE PAIN 7-10; Start 04/20/19 at 07:00; Stop 04/21/19 at 06:59; Status DC Ringer's Solution 1,000 ml @ 30 mls/hr Q24H IV Last administered on 04/20/19at 10:37; Start 04/20/19 at 07:00; Stop 04/20/19 at 18:59; Status DC Lidocaine HCl (Xylocaine-Mpf 1% 2ml Vial) 2 ml PRN 1X PRN ID PRIOR TO IV START; Start 04/20/19 at 07:00; Stop 04/21/19 at 06:59; Status DC Hydromorphone HCl (Dilaudid) 0.5 mg PRN Q10MIN PRN IV SEV PAIN, Second choice; Start 04/20/19 at 07:00; Stop 04/21/19 at 06:59; Status DC Prochlorperazine Edisylate (Compazine) 5 mg PACU PRN PRN IV NAUSEA, MRX1; Start 04/20/19 at 07:00; Stop 04/21/19 at 06:59; Status DC Bupivacaine HCl/ Epinephrine Bitart (Sensorcaine-Epi 0.25%-1:[id number] Mpf) 30 ml 1X ONCE INJ ; Start 04/20/19 at 10:30; Stop 04/20/19 at 10:31; Status DC Sevoflurane (Ultane) 15 ml STK-MED ONCE IH ; Start 04/20/19 at 10:29; Stop 04/20/19 at 19:53; Status DC Fentanyl Citrate (Fentanyl 2ml Vial) 100 mcg STK-MED ONCE .ROUTE ; Start 04/20/19 at 10:29; Stop 04/20/19 at 19:53; Status DC Propofol 0 ml @ As Directed STK-MED ONCE IV ; Start 04/20/19 at 10:29; Stop 04/20/19 at 19:53; Status DC Lidocaine HCl (Lidocaine Pf 2% Vial) 5 ml STK-MED ONCE .ROUTE ; Start 04/20/19 at 10:29; Stop 04/20/19 at 19:53; Status DC Dexamethasone Sodium Phosphate (Decadron) 4 mg STK-MED ONCE .ROUTE ; Start 04/20/19 at 10:30; Stop 04/20/19 at 19:53; Status DC Ondansetron HCl (Zofran) 4 mg STK-MED ONCE .ROUTE ; Start 04/20/19 at 10:30; Stop 04/20/19 at 19:53; Status DC Phenylephrine HCl (PHENYLEPHRINE in 0.9% NACL PF) 1 mg STK-MED ONCE IV ; Start 04/20/19 at 10:30; Stop 04/20/19 at 19:53; Status DC Sevoflurane (Ultane) 60 ml STK-MED ONCE IH ; Start 04/20/19 at 10:37; Stop 04/20/19 at 19:53; Status DC Fentanyl Citrate (Fentanyl 2ml Vial) 100 mcg STK-MED ONCE .ROUTE ; Start 04/20/19 at 10:37; Stop 04/20/19 at 19:53; Status DC Propofol 20 ml @ As Directed STK-MED ONCE IV ; Start 04/20/19 at 10:38; Stop 04/20/19 at 19:53; Status DC Lidocaine HCl (Lidocaine Pf 2% Vial) 5 ml STK-MED ONCE .ROUTE ; Start 04/20/19 at 10:38; Stop 04/20/19 at 19:53; Status DC Ondansetron HCl (Zofran) 4 mg STK-MED ONCE .ROUTE ; Start 04/20/19 at 10:38; Stop 04/20/19 at 19:53; Status DC Dexamethasone Sodium Phosphate (Decadron) 4 mg STK-MED ONCE .ROUTE ; Start 04/20/19 at 10:38; Stop 04/20/19 at 19:53; Status DC Glycopyrrolate (Robinul) 1 mg STK-MED ONCE .ROUTE ; Start 04/20/19 at 11:10; Stop 04/20/19 at 19:53; Status DC Ephedrine Sulfate (ePHEDrine PF IN SALINE SYRINGE) 50 mg STK-MED ONCE IV ; Start 04/20/19 at 11:16; Stop 04/20/19 at 19:53; Status DC Fentanyl Citrate (Fentanyl 2ml Vial) 100 mcg STK-MED ONCE .ROUTE ; Start 04/20/19 at 12:16; Stop 04/20/19 at 19:53; Status DC Albuterol Sulfate (Ventolin Neb Soln) 2.5 mg PRN QID PRN NEB SHORTNESS OF BREATH; Start 04/21/19 at 08:00 Furosemide (Lasix) 20 mg 1X ONCE IVP Last administered on 04/21/19at 10:07; Start 04/21/19 at 09:30; Stop 04/21/19 at 09:32; Status DC Insulin Human Lispro (HumaLOG) 22 units TIDAC SQ Last administered on 04/23/19at 13:12; Start 04/23/19 at 12:09; Stop 04/23/19 at 17:03; Status DC Insulin Glargine (Lantus Syringe) 55 unit QHS SQ Last administered on 04/28/19at 23:07; Start 04/23/19 at 21:00 Insulin Human Lispro (HumaLOG) 15 units TIDAC SQ Last administered on 04/29/19at 12:15; Start 04/23/19 at 17:15 Bupivacaine HCl/ Epinephrine Bitart (Sensorcaine-Epi 0.25%-1:[id number] Mpf) 30 ml 1X ONCE INJ ; Start 04/27/19 at 06:30; Stop 04/27/19 at 06:31; Status DC Ondansetron HCl (Zofran) 4 mg PRN Q6HRS PRN IV NAUSEA/VOMITING; Start 04/27/19 at 12:30; Stop 04/28/19 at 12:29; Status DC Fentanyl Citrate (Fentanyl 2ml Vial) 25 mcg PRN Q5MIN PRN IV MILD PAIN 1-3; Start 04/27/19 at 12:30; Stop 04/28/19 at 12:29; Status DC Fentanyl Citrate (Fentanyl 2ml Vial) 50 mcg PRN Q5MIN PRN IV MODERATE TO SEVERE PAIN; Start 04/27/19 at 12:30; Stop 04/28/19 at 12:29; Status DC Morphine Sulfate (Morphine Sulfate) 1 mg PRN Q10MIN PRN IV SEVERE PAIN 7-10; Start 04/27/19 at 12:30; Stop 04/28/19 at 12:29; Status DC Ringer's Solution 1,000 ml @ 30 mls/hr Q24H IV Last administered on 04/27/19at 12:39; Start 04/27/19 at 12:26; Stop 04/28/19 at 00:25; Status DC Lidocaine HCl (Xylocaine-Mpf 1% 2ml Vial) 2 ml PRN 1X PRN ID PRIOR TO IV START; Start 04/27/19 at 12:30; Stop 04/28/19 at 12:29; Status DC Hydromorphone HCl (Dilaudid) 0.5 mg PRN Q10MIN PRN IV SEV PAIN, Second choice; Start 04/27/19 at 12:30; Stop 04/28/19 at 12:29; Status DC Prochlorperazine Edisylate (Compazine) 5 mg PACU PRN PRN IV NAUSEA, MRX1; Start 04/27/19 at 12:30; Stop 04/28/19 at 12:29; Status DC Propofol 20 ml @ As Directed STK-MED ONCE IV ; Start 04/27/19 at 12:39; Stop 04/27/19 at 12:39; Status DC Dexamethasone Sodium Phosphate (Decadron) 4 mg STK-MED ONCE .ROUTE ; Start 04/27/19 at 12:39; Stop 04/27/19 at 12:39; Status DC Lidocaine HCl (Lidocaine Pf 2% Vial) 5 ml STK-MED ONCE .ROUTE ; Start 04/27/19 at 12:39; Stop 04/27/19 at 12:39; Status DC Ondansetron HCl (Zofran) 4 mg STK-MED ONCE .ROUTE ; Start 04/27/19 at 12:39; Stop 04/27/19 at 12:39; Status DC Fentanyl Citrate (Fentanyl 2ml Vial) 100 mcg STK-MED ONCE .ROUTE ; Start 04/27/19 at 12:39; Stop 04/27/19 at 12:39; Status DC Ephedrine Sulfate (ePHEDrine PF IN SALINE SYRINGE) 50 mg STK-MED ONCE IV ; Start 04/27/19 at 13:43; Stop 04/27/19 at 13:47; Status DC Sevoflurane (Ultane) 30 ml STK-MED ONCE IH ; Start 04/27/19 at 13:43; Stop 04/27/19 at 13:47; Status DC Fentanyl Citrate (Fentanyl 2ml Vial) 100 mcg STK-MED ONCE .ROUTE ; Start 04/27/19 at 14:26; Stop 04/27/19 at 14:26; Status DC Fentanyl (Duragesic 12mcg/ Hr Patch) 1 patch Q3DAYS TD ; Start 04/29/19 at 13:45 Active Scripts Active Zofran (Ondansetron Hcl) 4 Mg Tablet 1 Tab PO PRN Q6HRS PRN 30 Days Culturelle (Lactobacillus Rhamnosus Gg) 1 Each Cap.sprink 1 Cap PO BID 30 Days Humalog (Insulin Lispro) 100 Unit/1 Ml Insuln.pen 15 Units SQ TIDAC 30 Days Plus sliding scale BG 151-200 - 3u add BG 201-250 - 5u add BG 251-300 - 7u add BG 301-350 - 9u add BG 351> CALL Lantus (Insulin Glargine,Hum.rec.anlog) 100 Unit/1 Ml Vial 55 Unit SQ QHS 30 Days Meclizine Hcl 12.5 Mg Tablet 12.5 Mg PO PRN Q6HRS PRN 30 Days Furosemide 40 Mg Tablet 40 Mg PO DAILY 30 Days Gabapentin 300 Mg Capsule 900 Mg PO BID92 30 Days Gabapentin (Gabapentin) 400 Mg Capsule 1,200 Mg PO HS 30 Days Acetaminophen 500 Mg Tablet 500 Mg PO PRN Q6HRS PRN 30 Days Hydrocodone-Apap 5-325 (Hydrocodone Bit/Acetaminophen) 1 Tab Tablet 1-2 Tab PO PRN Q6HRS PRN 6 Days Aspirin Ec (Aspirin) 325 Mg Tablet. 325 Mg PO QHS 30 Days Atorvastatin Calcium 20 Mg Tablet 20 Mg PO QHS 30 Days Reported Atenolol 50 Mg Tablet 1 Tab PO BID Vitals/I & O Vital Sign - Last 24 Hours 04/28/19 04/28/19 04/28/19 04/28/19 15:00 16:37 17:07 19:00 Temp 97.9 98.6 97.9 98.6 Pulse 69 68 Resp 20 20 18 18 B/P (MAP) 145/59 (87) 146/71 (96) Pulse Ox 93 92 O2 Delivery Room Air Room Air Room Air Room Air 04/28/19 04/28/19 04/28/19 04/28/19 20:00 22:16 22:46 23:00 Temp 98.1 98.1 Pulse 68 Resp 18 B/P (MAP) 125/68 (87) Pulse Ox 92 94 94 O2 Delivery Room Air Room Air Room Air Room Air O2 Flow Rate 3.0 3.0 04/29/19 04/29/19 04/29/19 04/29/19 00:49 01:19 02:22 03:00 Temp 98.4 98.4 Pulse 67 Resp 18 B/P (MAP) 133/65 (87) Pulse Ox 94 94 94 91 O2 Delivery Room Air Room Air Room Air Room Air O2 Flow Rate 3.0 3.0 3.0 04/29/19 04/29/19 04/29/19 04/29/19 03:22 07:00 08:00 08:09 Temp 97.6 97.6 Pulse 54 Resp 18 B/P (MAP) 139/66 (90) Pulse Ox 94 95 O2 Delivery Room Air Room Air Room Air Room Air O2 Flow Rate 3.0 04/29/19 04/29/19 04/29/19 04/29/19 09:52 09:56 10:26 11:00 Temp 98.3 98.3 Pulse 63 Resp 18 B/P (MAP) 149/64 (92) Pulse Ox 94 O2 Delivery Room Air Room Air Room Air Room Air 04/29/19 12:07 O2 Delivery Room Air Intake and Output 04/28/19 04/28/19 04/29/19 15:00 23:00 07:00 Intake Total 810 ml 100 ml Output Total 900 ml 2000 ml Balance 810 ml -800 ml -2000 ml REJI ALEJO MD Apr 29, 2019 13:40
[2019-04-29] MEDS ORDERED: fentaNYL 12MCG/HR PATCH 1 PATCH PATCH.TD72 TD SCH (13:45)
[2019-04-29 15:00] VITALS: BP 137/49
[2019-04-29 19:00] VITALS: BP 130/54
[2019-04-29] MEDS: GABAPENTIN 400 MG CAPSULE. PO SCH (22:38)
[2019-04-29] MEDS: ATORVASTATIN CALCIUM 20 MG TABLET PO SCH (22:39)
[2019-04-29] MEDS: ASPIRIN ENTERIC COATED 325 MG TABLET.DR. PO SCH (22:39)
[2019-04-29] MEDS: INSULIN GLARGINE SYRINGE. SQ SCH (22:46)
[2019-04-29 23:00] VITALS: BP 148/60
[2019-04-30] MEDS: HYDROcodone/APAP 5/325MG 1 TAB TABLET PO PRN ×4 (00:35→16:34)
[2019-04-30 03:00] VITALS: BP 137/62
[2019-04-30] MEDS: MEROPENEM 1 GM in IV NORMAL SALINE 100ML 100 ML IV SCH ×2 (06:06→15:14)
[2019-04-30 06:36] LABS: BASO % 1 % (0-3); EOS # 0.3 x10^3/uL (0.0-0.7); EOS % 5 % (0-3); HEMATOCRIT 40.7 % (36.0-47.0); HEMOGLOBIN 13.4 g/dL (12.0-15.5); LYMPH # 2.5 x10^3/uL (1.0-4.8); LYMPH % 38 % (24-48); MEAN CORPUSCULAR HEMOGLOBIN 29 pg (25-35); MEAN CORPUSCULAR HGB CONC 33 g/dL (31-37); MEAN CORPUSCULAR VOLUME 88 fL (79-100); MONO # 0.7 x10^3/uL (0.0-1.1); MONO % 10 % (0-9); NEUT % 46 % (31-73); PLATELET COUNT 236 x10^3/uL (140-400); RED BLOOD COUNT 4.63 x10^6/uL (3.50-5.40); RED CELL DISTRIBUTION WIDTH 17.9 % (11.5-14.5); WHITE BLOOD COUNT 6.6 x10^3/uL (4.0-11.0)
[2019-04-30 07:00] VITALS: BP 142/77
[2019-04-30 07:07] LABS: ALBUMIN 3.1 g/dL (3.4-5.0); ALBUMIN/GLOBULIN RATIO 0.8 (1.0-1.7); CALCIUM 9.7 mg/dL (8.5-10.1); CREATININE 0.6 mg/dL (0.6-1.0); GFR 102.7; POTASSIUM 4.4 mmol/L (3.5-5.1); TOTAL BILIRUBIN 0.4 mg/dL (0.2-1.0)
[2019-04-30] MEDS ORDERED: fentaNYL 12MCG/HR PATCH 1 PATCH PATCH.TD72 TD SCH (07:45)
[2019-04-30] MEDS: INSULIN LISPRO 300 UNITS/3 ML VIAL. SQ SCH ×6 (08:00→16:34)
[2019-04-30] MEDS: LACTOBACILLUS RHAMNOSUS GG 1 CAPSULE. PO SCH (09:08)
[2019-04-30] MEDS: GABAPENTIN 300 MG CAPSULE. PO SCH ×2 (09:08→15:13)
[2019-04-30] MEDS: FUROSEMIDE 40 MG TABLET. PO SCH (09:09)
[2019-04-30 11:00] VITALS: BP 130/54
--- NOTE | 2019-04-30 11:12 | PDOC3 ---
Discharge Summary Visit Information Date of Admission: Apr 09, 2019 Date of Discharge: Apr 30, 2019 Admitting Diagnosis Comment: 1. LEft THIRD TOE Gangrene -s/p amputation 04/10 (POD # ) 2. RT heel ulcer - wound care 3. NOnosteo 3rd toe digit s/p clean ray amputation 4. DM with hgba1c 9.7 and neuropathy and target organ damage - hx osteo, partial amputation big toe 5. Obesity, morbid BMI 53 6. HTN - controlled 7,. Lymphedema 8. POst op confusion, transient 9, POst op mild hyperkalemia 5.5 10. Post op ALISIA, VMN 11. diastolic CHF echo 55% 12. Left rotator cuff calcific tendinopathy. 13. severe protein-caloric malnutrition 14 PULMONARY HYPERTENSION PA pressure 50 15. Right plantar wound s/p debridement devitalized dermis, 04/14 Brief Hospital Course Allergies Allergies Coded Allergies Type Severity Reaction Last Updated Verified cephalexin Allergy Severe Anaphylaxis 04/27/19 Yes iodine Allergy Severe 04/27/19 Yes Vital Signs Vital Signs Date Time Temp Pulse Resp B/P (MAP) Pulse Ox O2 Delivery O2 Flow Rate FiO2 04/30/19 07:00 97.5 55 18 142/77 (98) 93 BiPAP/CPAP 97.5 04/30/19 01:35 3.0 Lab Results Laboratory Tests Test 04/28/19 11:57 04/28/19 17:13 04/28/19 20:49 04/29/19 05:50 Glucose (Fingerstick) 240 mg/dL (70-99) 252 mg/dL (70-99) 211 mg/dL (70-99) White Blood Count 7.5 x10^3/uL (4.0-11.0) Red Blood Count 4.35 x10^6/uL (3.50-5.40) Hemoglobin 12.8 g/dL (12.0-15.5) Hematocrit 38.3 % (36.0-47.0) Mean Corpuscular Volume 88 fL (79-100) Mean Corpuscular Hemoglobin 29 pg (25-35) Mean Corpuscular Hemoglobin Concent 33 g/dL (31-37) Red Cell Distribution Width 17.7 % (11.5-14.5) Platelet Count 225 x10^3/uL (140-400) Neutrophils (%) (Auto) 54 % (31-73) Lymphocytes (%) (Auto) 34 % (24-48) Monocytes (%) (Auto) 9 % (0-9) Eosinophils (%) (Auto) 2 % (0-3) Basophils (%) (Auto) 1 % (0-3) Neutrophils # (Auto) 4.1 x10^3/uL (1.8-7.7) Lymphocytes # (Auto) 2.5 x10^3/uL (1.0-4.8) Monocytes # (Auto) 0.7 x10^3/uL (0.0-1.1) Eosinophils # (Auto) 0.2 x10^3/uL (0.0-0.7) Basophils # (Auto) 0.1 x10^3/uL (0.0-0.2) Sodium Level 143 mmol/L (136-145) Potassium Level 4.8 mmol/L (3.5-5.1) Chloride Level 104 mmol/L (98-107) Carbon Dioxide Level 32 mmol/L (21-32) Anion Gap 7 (6-14) Blood Urea Nitrogen 25 mg/dL (7-20) Creatinine 0.6 mg/dL (0.6-1.0) Estimated GFR (Cockcroft-Gault) 102.7 BUN/Creatinine Ratio 42 (6-20) Glucose Level 182 mg/dL (70-99) Calcium Level 9.3 mg/dL (8.5-10.1) Total Bilirubin 0.3 mg/dL (0.2-1.0) Aspartate Amino Transf (AST/SGOT) 10 U/L (15-37) Alanine Aminotransferase (ALT/SGPT) 32 U/L (14-59) Alkaline Phosphatase 96 U/L (46-116) Total Protein 6.9 g/dL (6.4-8.2) Albumin 2.9 g/dL (3.4-5.0) Albumin/Globulin Ratio 0.7 (1.0-1.7) Test 04/29/19 07:49 04/29/19 11:25 04/29/19 16:46 04/29/19 21:31 Glucose (Fingerstick) 184 mg/dL (70-99) 167 mg/dL (70-99) 165 mg/dL (70-99) 157 mg/dL (70-99) Test 04/30/19 06:10 White Blood Count 6.6 x10^3/uL (4.0-11.0) Red Blood Count 4.63 x10^6/uL (3.50-5.40) Hemoglobin 13.4 g/dL (12.0-15.5) Hematocrit 40.7 % (36.0-47.0) Mean Corpuscular Volume 88 fL (79-100) Mean Corpuscular Hemoglobin 29 pg (25-35) Mean Corpuscular Hemoglobin Concent 33 g/dL (31-37) Red Cell Distribution Width 17.9 % (11.5-14.5) Platelet Count 236 x10^3/uL (140-400) Neutrophils (%) (Auto) 46 % (31-73) Lymphocytes (%) (Auto) 38 % (24-48) Monocytes (%) (Auto) 10 % (0-9) Eosinophils (%) (Auto) 5 % (0-3) Basophils (%) (Auto) 1 % (0-3) Neutrophils # (Auto) 3.0 x10^3/uL (1.8-7.7) Lymphocytes # (Auto) 2.5 x10^3/uL (1.0-4.8) Monocytes # (Auto) 0.7 x10^3/uL (0.0-1.1) Eosinophils # (Auto) 0.3 x10^3/uL (0.0-0.7) Basophils # (Auto) 0.0 x10^3/uL (0.0-0.2) Sodium Level 142 mmol/L (136-145) Potassium Level 4.4 mmol/L (3.5-5.1) Chloride Level 102 mmol/L (98-107) Carbon Dioxide Level 33 mmol/L (21-32) Anion Gap 7 (6-14) Blood Urea Nitrogen 28 mg/dL (7-20) Creatinine 0.6 mg/dL (0.6-1.0) Estimated GFR (Cockcroft-Gault) 102.7 BUN/Creatinine Ratio 47 (6-20) Glucose Level 153 mg/dL (70-99) Calcium Level 9.7 mg/dL (8.5-10.1) Total Bilirubin 0.4 mg/dL (0.2-1.0) Aspartate Amino Transf (AST/SGOT) 16 U/L (15-37) Alanine Aminotransferase (ALT/SGPT) 46 U/L (14-59) Alkaline Phosphatase 102 U/L (46-116) Total Protein 7.0 g/dL (6.4-8.2) Albumin 3.1 g/dL (3.4-5.0) Albumin/Globulin Ratio 0.8 (1.0-1.7) Laboratory Tests Test 04/29/19 11:25 04/29/19 16:46 04/29/19 21:31 04/30/19 06:10 Glucose (Fingerstick) 167 mg/dL (70-99) 165 mg/dL (70-99) 157 mg/dL (70-99) White Blood Count 6.6 x10^3/uL (4.0-11.0) Red Blood Count 4.63 x10^6/uL (3.50-5.40) Hemoglobin 13.4 g/dL (12.0-15.5) Hematocrit 40.7 % (36.0-47.0) Mean Corpuscular Volume 88 fL (79-100) Mean Corpuscular Hemoglobin 29 pg (25-35) Mean Corpuscular Hemoglobin Concent 33 g/dL (31-37) Red Cell Distribution Width 17.9 % (11.5-14.5) Platelet Count 236 x10^3/uL (140-400) Neutrophils (%) (Auto) 46 % (31-73) Lymphocytes (%) (Auto) 38 % (24-48) Monocytes (%) (Auto) 10 % (0-9) Eosinophils (%) (Auto) 5 % (0-3) Basophils (%) (Auto) 1 % (0-3) Neutrophils # (Auto) 3.0 x10^3/uL (1.8-7.7) Lymphocytes # (Auto) 2.5 x10^3/uL (1.0-4.8) Monocytes # (Auto) 0.7 x10^3/uL (0.0-1.1) Eosinophils # (Auto) 0.3 x10^3/uL (0.0-0.7) Basophils # (Auto) 0.0 x10^3/uL (0.0-0.2) Sodium Level 142 mmol/L (136-145) Potassium Level 4.4 mmol/L (3.5-5.1) Chloride Level 102 mmol/L (98-107) Carbon Dioxide Level 33 mmol/L (21-32) Anion Gap 7 (6-14) Blood Urea Nitrogen 28 mg/dL (7-20) Creatinine 0.6 mg/dL (0.6-1.0) Estimated GFR (Cockcroft-Gault) 102.7 BUN/Creatinine Ratio 47 (6-20) Glucose Level 153 mg/dL (70-99) Calcium Level 9.7 mg/dL (8.5-10.1) Total Bilirubin 0.4 mg/dL (0.2-1.0) Aspartate Amino Transf (AST/SGOT) 16 U/L (15-37) Alanine Aminotransferase (ALT/SGPT) 46 U/L (14-59) Alkaline Phosphatase 102 U/L (46-116) Total Protein 7.0 g/dL (6.4-8.2) Albumin 3.1 g/dL (3.4-5.0) Albumin/Globulin Ratio 0.8 (1.0-1.7) Brief Hospital Course Ms. Adams is a 58 old obese white female, SP, DM who WAITED too long before seeking medical attention, She came in wiTH A GANGRENOUS TOE, that needed amputation. SHe underwent that and needed further I and D sunsequently, ALso co managed with ID, needed wound vac, wound care etc SHe has some minor CHF epsidoe, better after lasix and echo was normal EF, She has very limited mobility bec she is morbidly obese She will go home with IV abx at [facility] and wound vac and wound care etc Seen and examined I encouraged losing weight, ambulating, complying more SHe may tend to blame other people about some of her medical issues but she needs to be personally more pro active to herself if she really wants to get better consults: MARGARITA traore Proc: amputating the gangrenous toe and re I and Ds Discharge Information Condition at Discharge: Improved, Stable Disposition/Orders: D/C to Home Scheduled Aspirin (Aspirin Ec) 325 Mg Tablet., 325 MG PO QHS for PPX for 30 Days, #30 Prescribed by: REJI ALEJO MD on 04/29/19 5091 Atenolol (Atenolol) 50 Mg Tablet, 1 TAB PO BID for htn, #30 Ref 5 (Reported) Entered as Reported by: LISA ANN RN on 04/13/191322 Last Action: Continued on 04/13/191323 by LISA ANN RN Atorvastatin Calcium (Atorvastatin Calcium) 20 Mg Tablet, 20 MG PO QHS for HLD for 30 Days, #30 Prescribed by: REJI ALEJO MD on 04/29/191336 Furosemide (Furosemide) 40 Mg Tablet, 40 MG PO DAILY for Swelling for 30 Days, #30 Prescribed by: REJI ALEJO MD on 04/29/191336 Gabapentin (Gabapentin ) 400 Mg Capsule, 1,200 MG PO HS for Neuropathy for 30 Days, #90 Prescribed by: REJI ALEJO MD on 04/29/191336 Gabapentin (Gabapentin) 300 Mg Capsule, 900 MG PO BID92 for Neuropathy for 30 Days, #60 Prescribed by: REJI ALEJO MD on 04/29/191336 Insulin Glargine,Hum.rec.anlog (Lantus) 100 Unit/1 Ml Vial, 55 UNIT SQ QHS for DM2 for 30 Days, #1 Prescribed by: REJI ALEJO MD on 04/29/191336 Insulin Lispro (Humalog) 100 Unit/1 Ml Insuln.pen, 15 UNITS SQ TIDAC for DM2 for 30 Days, #1 Plus sliding scale BG 151-200 - 3u add BG 201-250 - 5u add BG 251-300 - 7u add BG 301-350 - 9u add BG 351> CALL MD Prescribed by: REJI ALEJO MD on 04/29/191336 Lactobacillus Rhamnosus Gg (Culturelle) 1 Each Cap.sprink, 1 CAP PO BID for infection for 30 Days, #60 Prescribed by: REJI ALEJO MD on 04/29/191336 Scheduled PRN Acetaminophen (Acetaminophen) 500 Mg Tablet, 500 MG PO PRN Q6HRS PRN for MILD PAIN / TEMP for 30 Days, #30 Prescribed by: REJI ALEJO MD on 04/29/191336 Hydrocodone Bit/Acetaminophen (Hydrocodone-Apap 5-325 ) 1 Tab Tablet, 1-2 TAB PO PRN Q6HRS PRN for SEVERE PAIN 7-10 for 6 Days, #24 Prescribed by: REJI ALEJO MD on 04/29/19 1337 Meclizine Hcl (Meclizine Hcl) 12.5 Mg Tablet, 12.5 MG PO PRN Q6HRS PRN for DIZZINESS for 30 Days, #30 Prescribed by: REJI ALEJO MD on 04/29/19 1337 Ondansetron Hcl (Zofran) 4 Mg Tablet, 1 TAB PO PRN Q6HRS PRN for NAUSEA for 30 Days, #20 Prescribed by: REJI ALEJO MD on 04/29/19 1267 TAYLOR CORDOVA MD Apr 30, 2019 11:12
--- NOTE | 2019-04-30 11:30 | NUR ---
Wound Care: Follow up with pt regarding multiple diabetic foot wounds. Pictures present in chart for R foot wounds. Dr. Diaz and Ze present for dressing change to L foot. Open wound closed in OR by Dr. Sandoval on 04/27/19. Incision pictured, tunnel of 1.2cm noted to 12:00. Dr. Sandoval notified, no new orders. Covered all wounds with xeroform, L foot wrapped with ABD and kerlix.
--- NOTE | 2019-04-30 11:55 | PDOC ---
Infectious Disease Note Subjective Subjective Doing alright pain ok No F/C/N/V/SOA ROS ROS o/w neg Vital Sign Vital Signs Vital Signs Date Time Temp Pulse Resp B/P (MAP) Pulse Ox O2 Delivery O2 Flow Rate FiO2 04/30/19 11:00 97.8 66 18 130/54 (79) 92 Room Air 97.8 04/30/19 01:35 3.0 Physical Exam PHYSICAL EXAM GENERAL: Alert and NAD, in chair HEENT: Oral cavity, pharynx clear. NECK: Supple LUNGS: Clear to auscultation bilaterally HEART: S1, S2. ABDOMEN: Morbidly obese, soft, nontender EXTREMITIES: Right 3rd toe bandaged, dry. Left foot wound well approximated. Small amount of tracking on anterior suture line Venous stasis b/l up to barron SKIN: warm to touch NEUROLOGIC: Responds appropriately RUE- PICC clean Labs Lab Laboratory Tests Test 04/29/19 16:46 04/29/19 21:31 04/30/19 06:10 04/30/19 07:28 Glucose (Fingerstick) 165 mg/dL (70-99) 157 mg/dL (70-99) 131 mg/dL (70-99) White Blood Count 6.6 x10^3/uL (4.0-11.0) Red Blood Count 4.63 x10^6/uL (3.50-5.40) Hemoglobin 13.4 g/dL (12.0-15.5) Hematocrit 40.7 % (36.0-47.0) Mean Corpuscular Volume 88 fL (79-100) Mean Corpuscular Hemoglobin 29 pg (25-35) Mean Corpuscular Hemoglobin Concent 33 g/dL (31-37) Red Cell Distribution Width 17.9 % (11.5-14.5) Platelet Count 236 x10^3/uL (140-400) Neutrophils (%) (Auto) 46 % (31-73) Lymphocytes (%) (Auto) 38 % (24-48) Monocytes (%) (Auto) 10 % (0-9) Eosinophils (%) (Auto) 5 % (0-3) Basophils (%) (Auto) 1 % (0-3) Neutrophils # (Auto) 3.0 x10^3/uL (1.8-7.7) Lymphocytes # (Auto) 2.5 x10^3/uL (1.0-4.8) Monocytes # (Auto) 0.7 x10^3/uL (0.0-1.1) Eosinophils # (Auto) 0.3 x10^3/uL (0.0-0.7) Basophils # (Auto) 0.0 x10^3/uL (0.0-0.2) Sodium Level 142 mmol/L (136-145) Potassium Level 4.4 mmol/L (3.5-5.1) Chloride Level 102 mmol/L (98-107) Carbon Dioxide Level 33 mmol/L (21-32) Anion Gap 7 (6-14) Blood Urea Nitrogen 28 mg/dL (7-20) Creatinine 0.6 mg/dL (0.6-1.0) Estimated GFR (Cockcroft-Gault) 102.7 BUN/Creatinine Ratio 47 (6-20) Glucose Level 153 mg/dL (70-99) Calcium Level 9.7 mg/dL (8.5-10.1) Total Bilirubin 0.4 mg/dL (0.2-1.0) Aspartate Amino Transf (AST/SGOT) 16 U/L (15-37) Alanine Aminotransferase (ALT/SGPT) 46 U/L (14-59) Alkaline Phosphatase 102 U/L (46-116) Total Protein 7.0 g/dL (6.4-8.2) Albumin 3.1 g/dL (3.4-5.0) Albumin/Globulin Ratio 0.8 (1.0-1.7) Test 04/30/19 11:25 Glucose (Fingerstick) 133 mg/dL (70-99) Micro Microbiology 04/10/19 Blood Culture - Preliminary, Resulted NO GROWTH AFTER 1 DAY Objective Assessment S/p Dexamethasone 04/27 S/p L foot wound closure 04/27 L 3 rd toe osteomyelitis - infection - despite amoxicillin/Clinda Left third toe amputation metatarsal, with toe, single 04/10 ALISIA Cephalexin allegy -swelling and throat closing leukocytosis - now s/p steroids prior to surgery Yeast skin Dm Right plantar wound Plan Plan of Care Meropenem (04/10) - Would cont For 2 weeks Min Cn D/c Fluconazole Probiotics Cultures neg Wound care as directed per Ortho d/w nursing D/w MEG Camarena MD Apr 30, 2019 11:55
[2019-04-30] MEDS ORDERED: FENT1PAT89 TP (12:04)
--- NOTE | 2019-04-30 12:06 | NUR ---
SS following up with discharge planning. Discharge orders received for [facility], ; fax [phone]. SS phoned and faxed discharge orders to [facility]. Pt will discharge today and go to [facility] for continued care. [facility] to provide transportations. SS awaiting transportation time at this time and will proceed accordingly.
[2019-04-30 15:00] VITALS: BP 134/64
--- NOTE | 2019-04-30 17:31 | NUR ---
Discharge: Pt DC to [facility], report given to TRINI Miller. Left with belongings, PICC line. No concerns.
== END 2019-04-30 16:43 | DRG 255 ==
LOC: 4 NORTH 19:21
PROVIDERS: ADMIT Internal Medicine; ATTEND Internal Medicine
PROC: 0Y6U0Z0 Detachment at Left 3rd Toe, Complete, Open Approach (ICD-10-PCS; 2019-04-10)
PROC: 0QBP0ZZ Excision of Left Metatarsal, Open Approach (ICD-10-PCS; 2019-04-10)
PROC: 5A09357 Assistance with Respiratory Ventilation, Less than 24 Consecutive Hours, Continuous Positive Airway Pressure (ICD-10-PCS; 2019-04-11)
PROC: 0QBP0ZZ Excision of Left Metatarsal, Open Approach (ICD-10-PCS; 2019-04-14)
PROC: 0SBM0ZZ Excision of Right Metatarsal-Phalangeal Joint, Open Approach (ICD-10-PCS; 2019-04-14)
PROC: 0JDQ0ZZ Extraction of Right Foot Subcutaneous Tissue and Fascia, Open Approach (ICD-10-PCS; 2019-04-14)
PROC: 5A09357 Assistance with Respiratory Ventilation, Less than 24 Consecutive Hours, Continuous Positive Airway Pressure (ICD-10-PCS; 2019-04-16)
PROC: 02HV33Z Insertion of Infusion Device into Superior Vena Cava, Percutaneous Approach (ICD-10-PCS; principal; 2019-04-18)
PROC: 5A09357 Assistance with Respiratory Ventilation, Less than 24 Consecutive Hours, Continuous Positive Airway Pressure (ICD-10-PCS; 2019-04-18)
PROC: 0L9W0ZZ Drainage of Left Foot Tendon, Open Approach (ICD-10-PCS; 2019-04-20)
PROC: 5A09357 Assistance with Respiratory Ventilation, Less than 24 Consecutive Hours, Continuous Positive Airway Pressure (ICD-10-PCS; 2019-04-21)
PROC: 5A09357 Assistance with Respiratory Ventilation, Less than 24 Consecutive Hours, Continuous Positive Airway Pressure (ICD-10-PCS; 2019-04-23)
PROC: 5A09357 Assistance with Respiratory Ventilation, Less than 24 Consecutive Hours, Continuous Positive Airway Pressure (ICD-10-PCS; 2019-04-24)
PROC: 5A09357 Assistance with Respiratory Ventilation, Less than 24 Consecutive Hours, Continuous Positive Airway Pressure (ICD-10-PCS; 2019-04-27)
PROC: 5A09357 Assistance with Respiratory Ventilation, Less than 24 Consecutive Hours, Continuous Positive Airway Pressure (ICD-10-PCS; 2019-04-28)
PROC: 5A09357 Assistance with Respiratory Ventilation, Less than 24 Consecutive Hours, Continuous Positive Airway Pressure (ICD-10-PCS; 2019-04-30)
DX: E11.52 Type 2 diabetes mellitus with diabetic peripheral angiopathy with gangrene (principal); I50.31 Acute diastolic (congestive) heart failure; E43 Unspecified severe protein-calorie malnutrition; N17.0 Acute kidney failure with tubular necrosis; M86.172 Other acute osteomyelitis, left ankle and foot; L97.419 Non-pressure chronic ulcer of right heel and midfoot with unspecified severity; Z68.42 Body mass index [BMI] 45.0-49.9, adult; N99.0 Postprocedural (acute) (chronic) kidney failure; E11.69 Type 2 diabetes mellitus with other specified complication; E11.628 Type 2 diabetes mellitus with other skin complications; M19.90 Unspecified osteoarthritis, unspecified site; E11.40 Type 2 diabetes mellitus with diabetic neuropathy, unspecified; F41.9 Anxiety disorder, unspecified; E78.5 Hyperlipidemia, unspecified; I25.10 Atherosclerotic heart disease of native coronary artery without angina pectoris; G47.33 Obstructive sleep apnea (adult) (pediatric); K21.9 Gastro-esophageal reflux disease without esophagitis; E66.01 Morbid (severe) obesity due to excess calories; I11.0 Hypertensive heart disease with heart failure; L02.622 Furuncle of left foot; E87.5 Hyperkalemia; I89.0 Lymphedema, not elsewhere classified; I27.20 Pulmonary hypertension, unspecified; E11.621 Type 2 diabetes mellitus with foot ulcer; Z88.8 Allergy status to other drugs, medicaments and biological substances; Z88.1 Allergy status to other antibiotic agents; Z89.412 Acquired absence of left great toe; Z87.820 Personal history of traumatic brain injury; Z79.4 Long term (current) use of insulin; Z83.3 Family history of diabetes mellitus; Z82.49 Family history of ischemic heart disease and other diseases of the circulatory system
CPT/HCPCS: 36415; 36569; 71045; 73720; 80048; 80053; 80061; 81001; 82550; 82962; 83036; 84443; 85007; 85025; 85651; 87040; 87071; 87075; 88305; 88311; 93005; 93306; 93925; 93970; 94640; 94760; A7015; A9575; J0171; J0878; J1100; J1170; J1450; J1815; J1940; J2001; J2185; J2370; J2405; J2543; J2704; J3010; J3370; J3490; J7030; J7040; J7120; J7613; J8597; 97110; 97116; 97530; 97535; A4461; G0378